=== PATIENT | female | born 1960 | race Caucasian/White ===

== ENCOUNTER 2016-12-19 16:57 | Inpatient (IN) | payer OTHER ==
[~2016-12-19] VITALS: Ht 167.6 cm; Wt 128.3 kg
[~2016-12-19 16:57] MED LIST: GLC/500 PO
[2016-12-19] MEDS ORDERED: ONDANSETRON 8 MG/54 ML D5W IV STA (17:20)
[2016-12-19] MEDS ORDERED: SODIUM CHLORIDE 0.9% 1000ML 1,000 ML IV STA ×2 (17:20→20:36)
[2016-12-19] MEDS ORDERED: RANITIDINE HCL 50 MG/100 ML D5W IV STA (17:21)
[2016-12-19] MEDS ORDERED: MoRPHine SULFATE 4 MG/ML 1 ML CARP\\VIAL IV PRN (17:30)
[2016-12-19 18:07] LABS: BUN/CREATININE RATIO 9.5 (10-20); CALCIUM 9.6 mg/dl (8.5-10.1); CREATININE 1.3 mg/dl (0.60-1.20); POTASSIUM 3.8 mmol/L (3.5-5.1)
[2016-12-19 18:12] LABS: HEMATOCRIT 39.3 % (37-47); MEAN CELL VOLUME 89.5 fL (80-100); MEAN CORPUSCULAR HEMOGLOBIN 30.8 pg (25-34); MEAN CORPUSCULAR HGB CONC 34.4 g/dl (32-36); MEAN PLATELET VOLUME 8.6 fL (7.4-10.4); PLATELET COUNT 81 K/uL (130-400); RED BLOOD COUNT 4.39 M/uL (4.2-5.4); WHITE BLOOD COUNT 10.26 K/uL (4.8-10.8)
[2016-12-19 18:14] LABS: BASO % 0.2 %; BASO ABS # 0.02 K/uL (0-0.2); COMPLETE YES; EOS % 0.1 %; IG% 0.3 %; LYMPH ABS # 0.72 K/uL (1.2-3.4); MONO % 5.2 %; NEUT % 87.2 %; PLT ESTIMATE DECREASED
--- NOTE | 2016-12-19 18:50 | DIAGNOSTIC IMAGING REPORT ---
ABD/PELVIS NO IV OR ORAL CONT CLINICAL HISTORY: 56 years-old Female presenting with diffuse abd pain, vomiting. TECHNIQUE: Multidetector CT of the abdomen and pelvis was performed without the use of intravenous contrast. IV contrast: None. A dose lowering technique was used consistent with the principles of ALARA (as low as reasonably achievable). COMPARISON: None. CT DOSE (mGy.cm): The estimated cumulative dose is 1690.04 mGy.cm. FINDINGS: Perfect Binder Feeder Offbearer topogram: Cholecystectomy clips. Lung bases: Mosaic attenuation at the lung bases could suggest small airways disease. Normal heart size. No pericardial or pleural effusion. Liver: Normal morphology. Density consistent with hepatic steatosis. Biliary: No gross biliary ductal dilatation allowing for noncontrast technique. Gallbladder surgically absent. Pancreas: Moderate parenchymal atrophy. Spleen: Enlarged measuring over 19 cm in maximal sagittal dimension. Adrenal glands: Normal noncontrast appearance. Kidneys and ureters: Normal. No hydronephrosis. Bladder: Normal. Pelvic organs: Uterus and ovaries normal. Bowel: Normal. No bowel obstruction. Peritoneal cavity: No free fluid or intraperitoneal gas. Vasculature: Atherosclerosis of the normal caliber abdominal aorta. IVC patent. Lymph nodes: No gross lymphadenopathy allowing for noncontrast technique. Abdominal wall: Normal. Musculoskeletal: Degenerative changes of the spine. IMPRESSION: 1. Within limitations of noncontrast technique, no acute intra-abdominal pathology. 2. Moderately enlarged spleen measuring over 19 cm in maximal sagittal dimension. This could be reactive in the presence of a recent or ongoing viral infection, secondary to sarcoidosis, or a lymphoproliferative disorder among other etiologies. 3. Mosaic attenuation at the lung bases suggest small airways disease. Electronically signed by: Sam Mueller M.D. 12/19/2016 6:49 PM Dictated Date/Time: 12/19/2016 6:44 PM
[2016-12-19] MEDS ORDERED: ACETAMINOPHEN 500 MG TAB PO STA (19:15)
[2016-12-19 19:29] LABS: URINE APPEARANCE CLEAR (CLEAR); URINE BILIRUBIN NEG (NEG); URINE COLOR YELLOW; URINE EPITHELIAL CELL AUTO >30 /lpf (0-5); URINE NITRITE NEG (NEG); URINE PH 6.5 (4.5-7.5); URINE SPECIFIC GRAVITY 1.012 (1.000-1.030); UROBILINOGEN NEG (NEG); ZZUR CULT IF INDIC CLEAN CATCH YES
[2016-12-19 19:31] LABS: MANUAL MICROSCOPIC REQUIRED? NO; REVIEW REQ? NO
[2016-12-19] MEDS ORDERED: CEFTRIAXONE SOD INJ 1 GM ADDVIAL IV STA (20:38)
--- NOTE | 2016-12-19 21:10 | DIAGNOSTIC IMAGING REPORT ---
HEAD WITHOUT CONTRAST (CT) CLINICAL HISTORY: 56 years-old Female presenting with headache. TECHNIQUE: Multidetector CT imaging of the head was performed without the use of intravenous contrast. IV contrast: None. A dose lowering technique was used consistent with the principles of ALARA (as low as reasonably achievable). COMPARISON: None. CT DOSE (mGy.cm): The estimated cumulative dose is 537.48 mGy.cm. FINDINGS: Grade Teacher topogram: Unremarkable. Ventricles and sulci normal in size. Brain parenchyma normal in appearance with preserved ricci-white differentiation. Prominent pineal calcification. No mass effect or midline shift. No hemorrhage or acute territorial infarct. No extra-axial fluid collection. Paranasal sinuses and mastoid air cells clear. Calvarium intact. IMPRESSION: 1. No acute intracranial pathology. Electronically signed by: Sam Mueller M.D. 12/19/2016 9:08 PM Dictated Date/Time: 12/19/2016 9:06 PM
--- NOTE | 2016-12-19 21:28 | DIAGNOSTIC IMAGING REPORT ---
CHEST ONE VIEW PORTABLE CLINICAL HISTORY: 56 years-old Female presenting with fever. TECHNIQUE: Portable upright AP view of the chest was obtained. COMPARISON: 11/16/2013. FINDINGS: Cardiomediastinal silhouette normal. Lungs and pleural spaces clear. Degenerative changes of the thoracic spine. Upper abdomen normal. IMPRESSION: 1. No acute cardiopulmonary disease. Electronically signed by: Sam Mueller M.D. 12/19/2016 9:26 PM Dictated Date/Time: 12/19/2016 9:26 PM
[2016-12-19] MEDS ORDERED: HYDROmorphone INJ 0.5 MG/0.5 ML SYR IV ONE (22:44)
[2016-12-19] MEDS ORDERED: ONDANSETRON INJ 2 MG/ML 2 ML VIAL IV PRN (22:45)
[2016-12-19] MEDS ORDERED: PROMETHAZINE HCL INJ 12.5 MG in SODIUM CHLORIDE 0.9% 50ML 50 ML IV PRN (22:45)
[2016-12-19] MEDS ORDERED: HYDROmorphone INJ 0.5 MG/0.5 ML SYR IV PRN (22:45)
[2016-12-19] MEDS ORDERED: INSULIN ASPART 100 UNITS/ML 3 ML PEN SC ONE (22:50)
[2016-12-19] MEDS ORDERED: LORAZEPAM 2 MG/ML 1 ML VIAL IV PRN (23:00)
[2016-12-19] MEDS ORDERED: SODIUM CHLORIDE 0.9% 1000ML 1,000 ML IV ONE (23:00)
[2016-12-19] MEDS ORDERED: GLUCAGON FOR INJ 1 MG VIAL SQ PRN (23:00)
[2016-12-19] MEDS ORDERED: GLUCOSE 10 TABS/TUBE PO PRN (23:00)
[2016-12-19] MEDS ORDERED: DEXTROSE 50% 50 ML SYR IV PRN (23:00)
[2016-12-19] MEDS ORDERED: ACETAMINOPHEN 325 MG TAB PO PRN (23:00)
[2016-12-19] MEDS ORDERED: GLUCOSE 40% GEL 15 GM TUBE PO PRN (23:00)
[2016-12-19 23:09] LABS: MAGNESIUM 1.5 mg/dl (1.8-2.4); THYROID STIMULATING HORMONE 1.27 uIu/ml (0.300-4.500)
[2016-12-19] MEDS ORDERED: NSS + 20MEQ KCL 1000ML 1,000 ML IV ONE (23:30)
[2016-12-20] VITALS: BP 120/73; PULSE 83; TEMP 36.8; O2SAT 95
[2016-12-20] MEDS: TRAMADOL HCL 50 MG TAB PO PRN ×3 (00:01→16:03)
[2016-12-20 00:11] LABS: INR 1.2 (0.9-1.1); PARTIAL THROMBOPLASTIN RATIO 1.1; PROTHROMBIN TIME (PATIENT) 12.4 SECONDS (9.0-12.0)
[2016-12-20 00:18] VITALS: O2SAT 96; Ht 167.6 cm; Wt 128.3 kg
--- NOTE | 2016-12-20 02:06 | EMERGENCY ROOM VISIT NOTE ---
History Report prepared by Butch: Abbi Jama Under the Supervision of: Dr. Chad Braswell M.D. First contact with patient: 17:11 Chief Complaint: GI ASSESSMENT Stated Complaint: DIZZY,SHARP PAINS IN HEAD & ABD,GRINDING FEELING History of Present Illness The patient is a 56 year old female who presents to the Emergency Room for a GI assessment. The patient states that last night she ate at [employer] in [place]. She states that shortly after she started to experience sharp abdominal pains that she describes as "a knife being drug through her abdomen." She reports that soon after she started experiencing a headache that she states is throbbing. She currently rates her pain as a 9/10 in severity. The patient complains of vomiting, diarrhea, chills, hot flashes, and melena. She notes that she has had diarrhea 10-12 times and that the vomiting started before the diarrhea. Pt denies LOC, fevers, diaphoresis, visual changes, neck pain, chest pain, breathing difficulties, back pain, hematochezia, urinary symptoms, numbness, weakness, lymphadenopathy, rash, or other complaints. She notes that she has not recently been on antibiotics. Source of History: patient Onset: last night Position: other (global) Symptom Intensity: 910 Quality: other (global) Timing: other (episode) Associated Symptoms: + chills, + headache, + nausea, + vomiting, + abdominal pain, + melena Note: The patient complains of hot flashes. Review of Systems See HPI for pertinent positives and negatives. A total of ten systems were reviewed and were otherwise negative. Past Medical & Surgical Medical Problems: (1) Diabetes (2) Sepsis Family History No pertinent family history Social History Smoking Status: Never Smoker Marital Status: Housing Status: lives with significant other Occupation Status: employed Current/Historical Medications Scheduled Metformin Hcl (Glucophage), 1,000 MG PO BID Allergies Coded Allergies: Sulfa Drugs (Verified Allergy, Unknown, 12/19/16) Physical Exam Vital Signs Date Time Temp Pulse Resp B/P (MAP) Pulse Ox O2 Delivery O2 Flow Rate FiO2 12/19/16 21:50 92 12/19/16 21:38 91 16 101/57 94 Room Air 12/19/16 20:30 96 16 89/40 91 Room Air 12/19/16 20:15 99 16 105/54 87 Room Air 12/19/16 19:45 101 16 100/58 92 Room Air 12/19/16 19:21 98 16 128/48 98 Room Air 12/19/16 17:58 99 12/19/16 17:03 37.7 102 18 143/81 98 Room Air Physical Exam GENERAL: Awake, alert, non ill appearing, uncomfortable appearing HEAD: Normocephalic, atraumatic. No edema. EYES: Normal conjunctiva. Sclera non-icteric. OROPHARYNX: Lips and tongue unremarkable. No erythema or exudate. Dry mucus membranes. NECK: Supple. No nuchal rigidity. FROM. No adenopathy. RESPIRATORY: CTA bilaterally. No wheezes rales or rhonchi. CARDIAC: Borderline tachycardic rate, normal rhythm. ABDOMEN: Soft, non distended. Diffuse tenderness to palpation. No rebound or guarding. MUSCULOSKELETAL: Atraumatic. No edema. Right leg is larger than the left thought the patient states that this is chronic. NEURO: Normal sensorium. SKIN: No rash or jaundice noted Medical Decision & Procedures ER Provider Diagnostic Interpretation: Radiology results as stated below per my review and radiologist interpretation: ABD/PELVIS NO IV OR ORAL CONT CLINICAL HISTORY: 56 years-old Female presenting with diffuse abd pain, vomiting. TECHNIQUE: Multidetector CT of the abdomen and pelvis was performed without the use of intravenous contrast. IV contrast: None. A dose lowering technique was used consistent with the principles of ALARA (as low as reasonably achievable). COMPARISON: None. CT DOSE (mGy.cm): The estimated cumulative dose is 1690.04 mGy.cm. FINDINGS: Business Unit Manager topogram: Cholecystectomy clips. Lung bases: Mosaic attenuation at the lung bases could suggest small airways disease. Normal heart size. No pericardial or pleural effusion. Liver: Normal morphology. Density consistent with hepatic steatosis. Biliary: No gross biliary ductal dilatation allowing for noncontrast technique. Gallbladder surgically absent. Pancreas: Moderate parenchymal atrophy. Spleen: Enlarged measuring over 19 cm in maximal sagittal dimension. Adrenal glands: Normal noncontrast appearance. Kidneys and ureters: Normal. No hydronephrosis. Bladder: Normal. Pelvic organs: Uterus and ovaries normal. Bowel: Normal. No bowel obstruction. Peritoneal cavity: No free fluid or intraperitoneal gas. Vasculature: Atherosclerosis of the normal caliber abdominal aorta. IVC patent. Lymph nodes: No gross lymphadenopathy allowing for noncontrast technique. Abdominal wall: Normal. Musculoskeletal: Degenerative changes of the spine. IMPRESSION: 1. Within limitations of noncontrast technique, no acute intra-abdominal pathology. 2. Moderately enlarged spleen measuring over 19 cm in maximal sagittal dimension. This could be reactive in the presence of a recent or ongoing viral infection, secondary to sarcoidosis, or a lymphoproliferative disorder among other etiologies. 3. Mosaic attenuation at the lung bases suggest small airways disease. Electronically signed by: Sam Mueller M.D. 12/19/2016 6:49 PM Dictated Date/Time: 12/19/2016 6:44 PM CHEST ONE VIEW PORTABLE CLINICAL HISTORY: 56 years-old Female presenting with fever. TECHNIQUE: Portable upright AP view of the chest was obtained. COMPARISON: 11/16/2013. FINDINGS: Cardiomediastinal silhouette normal. Lungs and pleural spaces clear. Degenerative changes of the thoracic spine. Upper abdomen normal. IMPRESSION: 1. No acute cardiopulmonary disease. Electronically signed by: Sam Mueller M.D. 12/19/2016 9:26 PM Dictated Date/Time: 12/19/2016 9:26 PM HEAD WITHOUT CONTRAST (CT) CLINICAL HISTORY: 56 years-old Female presenting with headache. TECHNIQUE: Multidetector CT imaging of the head was performed without the use of intravenous contrast. IV contrast: None. A dose lowering technique was used consistent with the principles of ALARA (as low as reasonably achievable). COMPARISON: None. CT DOSE (mGy.cm): The estimated cumulative dose is 537.48 mGy.cm. FINDINGS: Business Unit Manager topogram: Unremarkable. Ventricles and sulci normal in size. Brain parenchyma normal in appearance with preserved ricci-white differentiation. Prominent pineal calcification. No mass effect or midline shift. No hemorrhage or acute territorial infarct. No extra-axial fluid collection. Paranasal sinuses and mastoid air cells clear. Calvarium intact. IMPRESSION: 1. No acute intracranial pathology. Electronically signed by: Sam Mueller M.D. 12/19/2016 9:08 PM Dictated Date/Time: 12/19/2016 9:06 PM Laboratory Results 12/19/16 17:32 Red Blood Count 4.39, Mean Corpuscular Volume 89.5, Mean Corpuscular Hemoglobin 30.8, Mean Corpuscular Hemoglobin Concent 34.4, Mean Platelet Volume 8.6, Neutrophils (%) (Auto) 87.2, Lymphocytes (%) (Auto) 7.0, Monocytes (%) (Auto) 5.2, Eosinophils (%) (Auto) 0.1, Basophils (%) (Auto) 0.2, Neutrophils # (Auto) 8.95, Lymphocytes # (Auto) 0.72, Monocytes # (Auto) 0.53, Eosinophils # (Auto) 0.01, Basophils # (Auto) 0.02 12/19/16 17:32 Test 12/19/16 17:32 12/19/16 19:14 White Blood Count 10.26 K/uL (4.8-10.8) Red Blood Count 4.39 M/uL (4.2-5.4) Hemoglobin 13.5 g/dL (12.0-16.0) Hematocrit 39.3 % (37-47) Mean Corpuscular Volume 89.5 fL (80-100) Mean Corpuscular Hemoglobin 30.8 pg (25-34) Mean Corpuscular Hemoglobin Concent 34.4 g/dl (32-36) Platelet Count 81 K/uL (130-400) Mean Platelet Volume 8.6 fL (7.4-10.4) Neutrophils (%) (Auto) 87.2 % Lymphocytes (%) (Auto) 7.0 % Monocytes (%) (Auto) 5.2 % Eosinophils (%) (Auto) 0.1 % Basophils (%) (Auto) 0.2 % Neutrophils # (Auto) 8.95 K/uL (1.4-6.5) Lymphocytes # (Auto) 0.72 K/uL (1.2-3.4) Monocytes # (Auto) 0.53 K/uL (0.11-0.59) Eosinophils # (Auto) 0.01 K/uL (0-0.5) Basophils # (Auto) 0.02 K/uL (0-0.2) RDW Standard Deviation 46.3 fL (36.4-46.3) RDW Coefficient of Variation 14.0 % (11.5-14.5) Immature Granulocyte % (Auto) 0.3 % Immature Granulocyte # (Auto) 0.03 K/uL (0.00-0.02) Nucleated RBC Absolute Count (auto) 0.00 K/uL (0-0) Nucleated Red Blood Cells % 0.0 % Platelet Estimate DECREASED Anion Gap 8.0 mmol/L (3-11) Est Creatinine Clear Calc Drug Dose 64.7 ml/min Estimated GFR () 52.4 Estimated GFR (Non- 45.2 BUN/Creatinine Ratio 9.5 (10-20) Calcium Level 9.6 mg/dl (8.5-10.1) Magnesium Level 1.5 mg/dl (1.8-2.4) Total Bilirubin 1.9 mg/dl (0.2-1) Direct Bilirubin 0.5 mg/dl (0-0.2) Aspartate Amino Transf (AST/SGOT) 34 U/L (15-37) Alanine Aminotransferase (ALT/SGPT) 26 U/L (12-78) Alkaline Phosphatase 102 U/L (45-117) Total Protein 8.0 gm/dl (6.4-8.2) Albumin 3.2 gm/dl (3.4-5.0) Lipase 161 U/L (73-393) Thyroid Stimulating Hormone (TSH) 1.270 uIu/ml (0.300-4.500) Urine Color YELLOW Urine Appearance CLEAR (CLEAR) Urine pH 6.5 (4.5-7.5) Urine Specific [place] 1.012 (1.000-1.030) Urine Protein NEG (NEG) Urine Glucose (UA) NEG (NEG) Urine Ketones NEG (NEG) Urine Occult Blood NEG (NEG) Urine Nitrite NEG (NEG) Urine Bilirubin NEG (NEG) Urine Urobilinogen NEG (NEG) Urine Leukocyte Esterase LARGE (NEG) Urine WBC (Auto) 10-30 /hpf (0-5) Urine RBC (Auto) 0-4 /hpf (0-4) Urine Hyaline Casts (Auto) 1-5 /lpf (0-5) Urine Epithelial Cells (Auto) >30 /lpf (0-5) Urine Bacteria (Auto) 2+ (NEG) Laboratory results reviewed by me Medications Administered Medications (Trade) Dose Ordered Sig/Manuela Route Start Time Stop Time Status Last Admin Dose Admin Sodium Chloride 1,000 ml @ 999 mls/hr Q1H1M STAT IV 12/19/16 17:20 12/19/16 18:20 DC 12/19/16 17:42 999 MLS/HR Ondansetron HCl (Zofran 8mg Iv) 8 mg NOW STAT IV 9/17/17 17:20 12/19/16 17:23 DC 12/19/16 17:43 8 MG Morphine Sulfate (MoRPHine SULFATE INJ) 4 mg Q1H PRN IV 12/19/16 17:30 12/19/16 22:45 DC 12/19/16 17:43 4 MG Ranitidine HCl (zANTac IV) 50 mg NOW STAT IV 12/19/16 17:21 12/19/16 17:23 DC 12/19/16 17:43 50 MG Acetaminophen (Tylenol Tab) 1,000 mg NOW STAT PO 12/19/16 19:15 12/19/16 19:16 DC 12/19/16 19:15 1,000 MG Sodium Chloride 1,000 ml @ 999 mls/hr Q1H1M STAT IV 12/19/16 20:36 12/19/16 21:36 DC 12/19/16 20:36 999 MLS/HR Ceftriaxone Sodium (Rocephin Inj) 1 gm NOW STAT IV 12/19/16 20:38 12/19/16 20:40 DC 12/19/16 20:38 1 GM ED Course 171: The patient was evaluated in room A3. A complete history and physical exam was performed. 1720: Ordered Ondansetron HCl 8 mg IV, NSS 1000 ml @ 999 mls/hr IV. 1720: Ordered Ranitidine HCl 50 mg IV. 1730: Ordered Morphine Sulfate 4 mg PRN IV pain. 1913: The patient has spike a fever and will be given Tylenol. 1914: Ordered Tylenol Tab 1000 mg PO. 2035: Ordered NSS 1000 ml @ 999 mls/hr IV. 2033: I reevaluated the patient and there is no change in her symptoms. Her blood pressure is mildly low and her O2 borderline. The patient will be sent to CT. 2037: Ordered Rocephin Inj 1 gm IV. 2040: Discussed the patient's case with Dr. Avila. The patient will be evaluated for further treatment and disposition. Medical Decision Prior records/ancillary studies reviewed. Triage Nursing notes reviewed and agree them. Additional history obtained from the family. The patient's history was concerning for nausea, vomiting, diarrhea, and abdominal pain. Differential diagnosis: Etiologies such as gastroenteritis, dehydration, food borne illness, infections , appendicitis, diverticulitis, inflammatory bowel disease, GI bleed, biliary pathology, as well as others were entertained. Physical examination findings: As above. ER treatment provided: IV hydration 1 L NSS. Morphine Zofran Tylenol On reassessment the patient felt somewhat better. Nausea was improved. She still had a mild headache. Additional normal saline hydration IV Rocephin Diagnostics interpretation by me: The labs revealed an unremarkable CBC and chemistry panel except for thrombocytopenia. Urinalysis concerning for infection. Imaging studies: CT scans as above. The patient presented with vomiting and diarrhea coupled with abdominal pain. She has significant splenomegaly and thrombocytopenia on CBC. She has also had a headache but no nuchal rigidity. Her CT of her head did not reveal any acute findings. The patient's urinalysis was somewhat concerning. She had spiked a fever here in the emergency department. Her blood pressure was mildly low. Given the constellation of symptoms further evaluation and management was felt to be appropriate. Consultation: A consultation was placed with the hospitalist. The case was discussed and diagnostics were reviewed. The patient was evaluated in the ER for further treatment. Blood Pressure Screening Patient's blood pressure: Low blood pressure Blood pressure disposition: Did not require urgent referral Consults Time Called: 2038 Consulting Physician: Dr. Avila Returned Call: 2040 Discussed the patient's case with Dr. Avila. The patient will be evaluated for further treatment and disposition. Impression Primary Impression: Nausea, vomiting and diarrhea Additional Impressions: Thrombosis Cytopenia Splenomegaly Headache Scribe Attestation The scribe's documentation has been prepared under my direction and personally reviewed by me in its entirety. I confirm that the note above accurately reflects all work, treatment, procedures, and medical decision making performed by me. Departure Information Dispostion Being Evaluated By Hospitalist Referrals No Doctor, Assigned (PCP) Patient Instructions [facility] Problem Qualifiers
--- NOTE | 2016-12-20 04:23 | HISTORY & PHYSICAL EXAMINATION ---
DATE OF ADMISSION: 12/19/2016 PRIMARY CARE DOCTOR: Dr. Rollins. CHIEF COMPLAINT: Abdominal pain. HISTORY OF PRESENT ILLNESS: History obtained from patient and records. Medical history significant for JUAN, lymphedema, DM 2 on oral meds, hyperlipidemia, thrombocytopenia (from May 2015 blood work, patient unaware of the findings) Yesterday, the patient had a sandwich from [facility]. Shortly after she felt sick, nauseous; vomiting, loose stools, achy abdominal pain noted. Denies dysuria. Stools nonbloody. achy posterior headache sx w/ some dizziness. No recent antibiotics. No known sick contacts. Patient brought to the Emergency Room. MEDICAL HISTORY: As above. SURGERIES: She has had gynecologic procedures, cholecystectomy. HOME MEDICATIONS: Include metformin. ALLERGIES: SULFA. FAMILY HISTORY: Hypertension, cirrhosis secondary to fatty liver disease. PERSONAL SOCIAL HISTORY: Nonsmoker, no chronic intake of alcoholic beverages. Disabled. REVIEW OF SYSTEMS: As per HPI, all other ROS negative. PHYSICAL EXAMINATION: VITAL SIGNS: Blood pressure was noted to be 140/81, pulse rate 102 later 90, RR 18, temperature 37.7, sats 94% on room air. GENERAL: Noted to be obese, uncomfortable, no respiratory distress. SKIN: Normal color. HEENT: [place] palpebral conjunctivae. Dry mucosa. NECK: Short neck. LUNGS: Decreased breath sounds. HEART: RRR ABDOMEN: Some distention, no overt tenderness. EXTREMITIES: Bilateral LE edema, no tenderness NEUROLOGIC: No gross focality. LABS: Hemoglobin was noted to be 13.5, hematocrit 39.7, white cell count 12 platelets 81. Sodium 140 potassium 3.8, chloride 103, CO2 28, BUN 12, creatinine 1.3, glucose 161, procalcitonin was noted to be normal. Hemoglobin A1c from October 2016 was 7.1. UA WBC esterase, epithelial cells. IMAGING DATA: CT abdomen and pelvis. hepatic steatosis. no acute intra-abdominal pathology, moderately enlarged spleen, (viral infection versus lymphoproliferative disorder) CT head, no acute pathology. ASSESSMENT: 1. Sepsis possibly from viral gastroenteritis, food-borne illness. 2. Acute renal failure secondary to above. 3. Asymptomatic pyuria, contaminated specimen 4. Chronic thrombocytopenia (noted on 05/2015 outpatient blood work), splenomegaly on CAT scan. 5. Fatty liver on CT 6. Headache secondary to illness. 7. DM2, on oral medications, well controlled as of recent outpx HgA1c. PLAN: GMF CS, check lactic acid Supportive management for viral gastroenteritis. analgesics. Antiemetics Monitor creatinine response to IV fluids Hold off on antibiotics for now for asymptomatic pyuria. Inpatient Hematology opinion as per patient/family request RE thrombocytopenia, splenomegaly. MRI of the brain if patient still complaining of headache in the morning. ISS BG goal 140-180 DVT prophylaxis SCDs RE thrombocytopenia Full code. MTDD
[2016-12-20 07:49] LABS: HEMATOCRIT 34.3 % (37-47); MEAN CELL VOLUME 92.2 fL (80-100); MEAN CORPUSCULAR HEMOGLOBIN 30.6 pg (25-34); MEAN CORPUSCULAR HGB CONC 33.2 g/dl (32-36); RED BLOOD COUNT 3.72 M/uL (4.2-5.4); WHITE BLOOD COUNT 5.87 K/uL (4.8-10.8)
[2016-12-20] MEDS: INSULIN ASPART 100 UNITS/ML 3 ML PEN SC SCH ×4 (07:52→21:13)
[2016-12-20] MEDS: ONDANSETRON INJ 2 MG/ML 2 ML VIAL IV. SCH ×2 (07:53→21:10)
[2016-12-20] MEDS ORDERED: PNEUMOCOCCAL POLYSACCHARIDES 25 MCG/0.5 ML VIAL/SYR IM. ONE (08:00)
[2016-12-20] MEDS ORDERED: PNEUMOCOCCAL ADMINISTRATION CHARGE ONE (08:00)
[2016-12-20 08:02] LABS: MEAN PLATELET VOLUME 9.2 fL (7.4-10.4); PLATELET COUNT 62 K/uL (130-400)
[2016-12-20 08:15] LABS: BUN/CREATININE RATIO 10.7 (10-20); CALCIUM 8.8 mg/dl (8.5-10.1); CREATININE 1.1 mg/dl (0.60-1.20); POTASSIUM 3.8 mmol/L (3.5-5.1)
[2016-12-20 08:17] LABS: BASO % 0.2 %; BASO ABS # 0.01 K/uL (0-0.2); COMPLETE YES; EOS % 0.7 %; IG% 0.2 %; LYMPH % 13.6 %; MONO % 6.6 %; NEUT % 78.7 %
[2016-12-20 09:52] VITALS: BP 125/76; PULSE 81; TEMP 36.8; O2SAT 97
--- NOTE | 2016-12-20 13:49 | Progress Note ---
Internal Med Progress Note Date of Service: Dec 20, 2016. Provider Documentation: SUBJECTIVE: Seen and examined at bedside Nausea, vomiting, diarrhea resolved States having generalized abdominal pain predominantly on left Also reports occipital headache Denies change in vision No focal deficits, neck stiff ness on exam Denies CP, SOB Family at bedside OBJECTIVE: Vital Signs-as noted below Physical Exam: Vitals signs as noted above General Appearance:Obese, no apparent distress Head: normocephalic, Atraumatic Eyes: normal inspection, EOMI, PERRLA Neck: supple, Trachea midline Respiratory/Chest: Normal breath sounds, CTA Cardiovascular: S1, S2, No murmur Abdomen/GI:Soft, Non tender, Bowel sounds present Extremities/Musculoskelatal:normal inspection, B/L Chronic lymphedema Neurologic/Psych:AAOX3, grossly no focal neurological deficits, No neck stiffness Skin: normal color, warm Lab data as noted below. ASSESSMENT & PLAN: SIRS ? gastroenteritis Nausea, vomiting, diarrhea resolved Normal lactate levels Afebrile, No leucocytosis S/P IV fluids CT ABD: hepatic Steatosis, splenomegaly SATHYA: secondary to above. Resolved Monitor renal function Abnormal UA: likely contaminant Urine cultures pending Denies Urinary symptoms Splenomegaly Chronic thrombocytopenia (noted on 05/2015 outpatient blood work) No active bleeding issues Heme Onch consulted Monitor platelets Peripheral smear pending Headache: Reports H/O headache but states it is different "Pressure like" CT Head: no acute pathology Persistent intermittently, occipital region currently No neck stiffness, focal deficits or change in vision Check MRI head DM II: on oral medications at home well controlled as of recent outpx HgA1c. ISS, monitor Chronic Lymphedema: States RLE is more swollen check Doppler to r/o DVT DVT px SCDs RE thrombocytopenia Code Status: Full code. Vital Signs: Date Time Temp Pulse Resp B/P (MAP) Pulse Ox O2 Delivery O2 Flow Rate FiO2 12/20/16 09:52 36.8 81 18 125/76 (92) 97 Room Air 12/20/16 08:30 Room Air 12/20/16 00:18 96 Room Air 12/20/16 00:00 36.8 83 20 120/73 (89) 95 Room Air 12/19/16 22:45 87 16 112/78 96 Room Air 12/19/16 21:50 92 12/19/16 21:38 91 16 101/57 94 Room Air 12/19/16 20:30 96 16 89/40 91 Room Air 12/19/16 20:15 99 16 105/54 87 Room Air 12/19/16 19:45 101 16 100/58 92 Room Air 12/19/16 19:21 98 16 128/48 98 Room Air 12/19/16 17:58 99 12/19/16 17:03 37.7 102 18 143/81 98 Room Air Lab Results: Results Past 24 Hours Test 12/19/16 17:32 12/19/16 19:14 12/19/16 23:28 12/20/16 00:00 Range/Units White Blood Count 10.26 4.8-10.8 K/uL Red Blood Count 4.39 4.2-5.4 M/uL Hemoglobin 13.5 12.0-16.0 g/dL Hematocrit 39.3 37-47 % Mean Corpuscular Volume 89.5 80-100 fL Mean Corpuscular Hemoglobin 30.8 25-34 pg Mean Corpuscular Hemoglobin Concent 34.4 32-36 g/dl Platelet Count 81 130-400 K/uL Mean Platelet Volume 8.6 7.4-10.4 fL Neutrophils (%) (Auto) 87.2 % Lymphocytes (%) (Auto) 7.0 % Monocytes (%) (Auto) 5.2 % Eosinophils (%) (Auto) 0.1 % Basophils (%) (Auto) 0.2 % Neutrophils # (Auto) 8.95 1.4-6.5 K/uL Lymphocytes # (Auto) 0.72 1.2-3.4 K/uL Monocytes # (Auto) 0.53 0.11-0.59 K/uL Eosinophils # (Auto) 0.01 0-0.5 K/uL Basophils # (Auto) 0.02 0-0.2 K/uL RDW Standard Deviation 46.3 36.4-46.3 fL RDW Coefficient of Variation 14.0 11.5-14.5 % Immature Granulocyte % (Auto) 0.3 % Immature Granulocyte # (Auto) 0.03 0.00-0.02 K/uL Nucleated RBC Absolute Count (auto) 0.00 0-0 K/uL Nucleated Red Blood Cells % 0.0 % Platelet Estimate DECREASED Sodium Level 139 136-145 mmol/L Potassium Level 3.8 3.5-5.1 mmol/L Chloride Level 103 98-107 mmol/L Carbon Dioxide Level 28 21-32 mmol/L Anion Gap 8.0 3-11 mmol/L Blood Urea Nitrogen 12 7-18 mg/dl Creatinine 1.30 0.60-1.20 mg/dl Est Creatinine Clear Calc Drug Dose 64.7 ml/min Estimated GFR () 52.4 Estimated GFR (Non- 45.2 BUN/Creatinine Ratio 9.5 10-20 Random Glucose 161 70-99 mg/dl Calcium Level 9.6 8.5-10.1 mg/dl Magnesium Level 1.5 1.8-2.4 mg/dl Total Bilirubin 1.9 0.2-1 mg/dl Direct Bilirubin 0.5 0-0.2 mg/dl Aspartate Amino Transf (AST/SGOT) 34 15-37 U/L Alanine Aminotransferase (ALT/SGPT) 26 12-78 U/L Alkaline Phosphatase 102 45-117 U/L Total Protein 8.0 6.4-8.2 gm/dl Albumin 3.2 3.4-5.0 gm/dl Lipase 161 73-393 U/L Thyroid Stimulating Hormone (TSH) 1.270 0.300-4.500 uIu/ml Urine Color YELLOW Urine Appearance CLEAR CLEAR Urine pH 6.5 4.5-7.5 Urine Specific [place] 1.012 1.000-1.030 Urine Protein NEG NEG Urine Glucose (UA) NEG NEG Urine Ketones NEG NEG Urine Occult Blood NEG NEG Urine Nitrite NEG NEG Urine Bilirubin NEG NEG Urine Urobilinogen NEG NEG Urine Leukocyte Esterase LARGE NEG Urine WBC (Auto) 10-30 0-5 /hpf Urine RBC (Auto) 0-4 0-4 /hpf Urine Hyaline Casts (Auto) 1-5 0-5 /lpf Urine Epithelial Cells (Auto) >30 0-5 /lpf Urine Bacteria (Auto) 2+ NEG Prothrombin Time 12.4 9.0-12.0 SECONDS Prothromb Time International Ratio 1.2 0.9-1.1 Activated Partial Thromboplast Time 29.4 21.0-31.0 SECONDS Partial Thromboplastin Ratio 1.1 Lactic Acid Level 1.5 0.4-2.0 mmol/L Lactate Dehydrogenase 181 84-246 U/L Procalcitonin 0.44 0-0.5 ng/ml Bedside Glucose 157 70-90 mg/dl Test 12/20/16 07:11 12/20/16 07:41 12/20/16 11:28 Range/Units White Blood Count 5.87 4.8-10.8 K/uL Red Blood Count 3.72 4.2-5.4 M/uL Hemoglobin 11.4 12.0-16.0 g/dL Hematocrit 34.3 37-47 % Mean Corpuscular Volume 92.2 80-100 fL Mean Corpuscular Hemoglobin 30.6 25-34 pg Mean Corpuscular Hemoglobin Concent 33.2 32-36 g/dl Platelet Count 62 130-400 K/uL Mean Platelet Volume 9.2 7.4-10.4 fL Neutrophils (%) (Auto) 78.7 % Lymphocytes (%) (Auto) 13.6 % Monocytes (%) (Auto) 6.6 % Eosinophils (%) (Auto) 0.7 % Basophils (%) (Auto) 0.2 % Neutrophils # (Auto) 4.62 1.4-6.5 K/uL Lymphocytes # (Auto) 0.80 1.2-3.4 K/uL Monocytes # (Auto) 0.39 0.11-0.59 K/uL Eosinophils # (Auto) 0.04 0-0.5 K/uL Basophils # (Auto) 0.01 0-0.2 K/uL RDW Standard Deviation 48.8 36.4-46.3 fL RDW Coefficient of Variation 14.5 11.5-14.5 % Immature Granulocyte % (Auto) 0.2 % Immature Granulocyte # (Auto) 0.01 0.00-0.02 K/uL Sodium Level 140 136-145 mmol/L Potassium Level 3.8 3.5-5.1 mmol/L Chloride Level 105 98-107 mmol/L Carbon Dioxide Level 29 21-32 mmol/L Anion Gap 6.0 3-11 mmol/L Blood Urea Nitrogen 12 7-18 mg/dl Creatinine 1.10 0.60-1.20 mg/dl Est Creatinine Clear Calc Drug Dose 76.5 ml/min Estimated GFR () 64.1 Estimated GFR (Non- 55.3 BUN/Creatinine Ratio 10.7 10-20 Random Glucose 152 70-99 mg/dl Calcium Level 8.8 8.5-10.1 mg/dl Bedside Glucose 160 178 70-90 mg/dl Microbiology Results 12/19/16 Blood Culture, Received Pending 12/19/16 Blood Culture, Received Pending 12/19/16 Urine Culture - Preliminary, Resulted PIN-POINT GROWTH PRESENT, REINCUBATING.
[2016-12-20 15:32] VITALS: BP 121/70; PULSE 73; TEMP 37; O2SAT 94
[2016-12-20 16:00] VITALS: O2SAT 94
--- NOTE | 2016-12-20 18:13 | Medical Consult ---
Consultation Date of Consultation: Dec 20, 2016. Attending Physician: Johan Woodard MD History of Present Illness Hematology consult: Evaluation and management of thrombocytopenia. Date of consultation: 12/20/[address] Avila. HPI: 56-year-old female, who is admitted at [facility] on for increasing abdominal pain, occipital headache, nausea, vomiting, diarrhea, no blood in the stool, some dizziness present. Earlier blood workup done 2013 and before that showed normal platelet count. -platelet count was around 108,000 with normal white blood cell count and platelet count in May,. - WBC 72895, H&H of 13.5/39.3, MCV 89.5, Platelet count of 81,000, (12/19/2016) Peripheral smear reviewed by the pathologist showed low platelet count, no platelet clumping, no immature WBCs, no schistocytes noted. -WBC 5800, H&H [place] 11.4/34.3, [place] [address] (12/20/2016) -BUN/Creat: 12/1.3, total bilirubin 1.9, direct bilirubin 0.5 AST 34, ALT 26 I saw her at bedside, her son was also at bedside, she still complains of some abdominal pain, occipital headache present. No nausea or vomiting, right lower extremity painful swelling involving the leg present. REVIEW OF SYSTEMS: GENERAL: No change in weight, she felt quite weak and tired, fatigue present, low-grade fever present,. SKIN: No skin rash, no bruising. HEAD: Occipital headache and some dizziness present. EYES: No recent change in the vision, no diplopia, EARS: No earache no tinnitus, NOSE: No epistaxis, No nasal discharge or stuffiness, MOUTH: No sores, no dysphagia, no hoarseness of voice, NECK: No lumps, No swelling in thyroid area. No stiffness. PULMONARY: No cough, No shortness of breath, no hemoptysis, no chest pain, No wheezing. CARDIOVASCULAR: No anginal chest pain, no PND, no orthopnea. No palpitation, she has chronic bilateral leg edema more on the right side which could be lymphedema, No syncope. GASTROINTESTINAL: Left-sided abdominal pain, nausea present, vomiting present, diarrhea present, no blood in the stool.No abdominal distention. UROLOGIC: No burning urination. No hematuria. MUSCULOSKELETAL: No joint pain, No joint swelling, no muscle weakness. HEMATOLOGIC: No anemia, no bleeding disorder, No bruising. NEUROLOGIC: No seizures, no focal weakness, no speech difficulty, No memory disturbances. No tingling or numbness of the extremities. PSYCHIATRIC: No depression. No anxiety. No psychosis. SLEEP: No sleep disorder. Past medical and surgical history: -right lower extremity lymphedema, diabetes mellitus, she says that she had repeated episodes of some cellulitis involving the right leg last episode was few years back, obstructive sleep apnea, hyperlipidemia. She had cholecystectomy in the past . - bilateral lower extremity neuropathy. Social history: Denies any history of smoking, denies any ETOH abuse. Family history: Not significant Medications: Please review her chart for detailed list of medications. Allergies: None On exam: - Alert and oriented x3, well built obese woman, not in any distress. - HEENT: no icterus, no pallor, Throat: Normal. - Neck: No palpable cervical lymphadenopathy. - Chest: clear to auscultation. - Abdomen: soft, nontender, no hepatomegaly, no splenomegaly. - No focal neuro deficit. - Extremities: no finger clubbing, right lower extremity lymphedema with some chronic changes involving the leg with some signs of erythema present, mild left leg edema present.. Lab: -LDH--> 181. (12/19/2016). Imaging: -CT scan of the abdomen pelvis done without intravenous contrast on 12/19/2016 showed splenomegaly measuring around 19 cm, no intra-abdominal lymphadenopathy noted. Hepatic steatosis noted. S/P cholecystectomy noted. -CT scan of the head done without intravenous contrast on 12/19/2016--> no acute intracranial pathology noted. ASSESSMENT AND PLAN: 56-year-old female, who had mild thrombocytopenia platelet count around 100,000 earlier in May,, she had a normal white blood cell count, normal hemoglobin level at that time, now she is admitted for some nonspecific symptoms in the form abdominal pain, headache, low-grade fever which could be some gastroenteritis or some viral illness, but found to have gradual drop in the platelet count around 60,000, splenomegaly noted in the CT scan of the abdomen, no intermittent lymphadenopathy, fatty changes noted in the liver, obesity present, also has diabetes mellitus, chronic right lower extremity lymphedema now has possible cellulitis, she is going for Doppler evaluation to rule out DVT. Splenomegaly is most likely the cause of thrombocytopenia in her case and her platelet count is likely to stay in the same range but not sure about the exact cause of splenomegaly in her case at this time, her white blood cell count is in normal range, hemoglobin is also normal range, no other intra-abdominal lymphadenopathy noted. She does not have any other palpable lymphadenopathy or B symptoms for some time. Congestive splenomegaly would be possibility. Will see how she does during this hospitalization, will follow up in the outpatient clinic and decide about further workup if indicated. Thanks for the consultation. Dr. Bon Ibrahim Hem/Onc (This note was completed using the dictation program Fluency Direct. As such, there may be misspellings, word substitutions, or other variations that should not change the essence of the clinical content of this encounter note. If there is need for further clarification, please direct questions to the provider listed above.) Past Medical/Surgical History Medical Problems: (1) Cytopenia Status: Acute (2) Headache Status: Acute (3) Nausea, vomiting and diarrhea Status: Acute (4) Splenomegaly Status: Acute (5) Thrombosis Status: Acute Family History No pertinent family history Social History Smoking Status: Never Smoker Marital Status: Housing Status: lives with significant other Occupation Status: employed Allergies Coded Allergies: Sulfa Drugs (Verified Allergy, Unknown, 12/19/16) Current Inpatient Medications Current Inpatient Medications Medications (Trade) Dose Ordered Sig/Manuela Route Start Time Stop Time Status Last Admin Dose Admin Hydromorphone HCl (Dilaudid Inj) 0.5 mg Q3H PRN IV 12/19/16 22:45 01/02/17 22:44 Tramadol HCl (Ultram Tab) not relieved by tylenol @ Q6H PRN PO 12/19/16 22:45 01/18/17 22:44 12/20/16 16:03 50 MG Promethazine HCl 12.5 mg/Sodium Chloride 50.5 ml @ 204 mls/hr Q6H PRN IV 12/19/16 22:45 01/18/17 22:44 Ondansetron HCl (Zofran Inj) 4 mg Q12 IV. 12/20/16 09:00 12/20/16 21:01 12/20/16 07:53 4 MG Ondansetron HCl (Zofran Inj) 4 mg Q6H PRN IV 12/19/16 22:45 01/18/17 22:44 Acetaminophen (Tylenol Tab) 650 mg Q4H PRN PO 12/19/16 23:00 01/18/17 22:59 12/20/16 11:26 650 MG Insulin Aspart (novoLOG ASPART) SLIDING SCALE If C... ACHS SC 12/20/16 06:30 01/19/17 06:59 Glucose (Glucose 40% Gel) 15-30 GRAMS 15 GRAMS... UD PRN PO 12/19/16 23:00 01/18/17 22:59 Glucose (Glucose Chew Tab) 4-8 Tablets 4 Tabl... UD PRN PO 12/19/16 23:00 01/18/17 22:59 Dextrose (Dextrose 50% 50ML Syringe) 25-50ML OF 50% DW IV FOR... UD PRN IV 12/19/16 23:00 01/18/17 22:59 Glucagon (Glucagon Inj) 1 mg UD PRN SQ 12/19/16 23:00 01/18/17 22:59 Lorazepam (Ativan Inj) 0.5 mg Q4H PRN IV 12/19/16 23:00 01/18/17 22:59 Physical Exam Date Time Temp Pulse Resp B/P (MAP) Pulse Ox O2 Delivery O2 Flow Rate FiO2 12/20/16 16:00 94 Room Air 12/20/16 15:32 37.0 73 20 121/70 (87) 94 Room Air 12/20/16 09:52 36.8 81 18 125/76 (92) 97 Room Air 12/20/16 08:30 Room Air 12/20/16 00:18 96 Room Air 12/20/16 00:00 36.8 83 20 120/73 (89) 95 Room Air 12/19/16 22:45 87 16 112/78 96 Room Air 12/19/16 21:50 92 12/19/16 21:38 91 16 101/57 94 Room Air 12/19/16 20:30 96 16 89/40 91 Room Air 12/19/16 20:15 99 16 105/54 87 Room Air 12/19/16 19:45 101 16 100/58 92 Room Air 12/19/16 19:21 98 16 128/48 98 Room Air Laboratory Results Last 24 Hours Test 12/19/16 19:14 12/19/16 23:28 12/20/16 00:00 12/20/16 07:11 Urine Color YELLOW Urine Appearance CLEAR Urine pH 6.5 Urine Specific [place] 1.012 Urine Protein NEG Urine Glucose (UA) NEG Urine Ketones NEG Urine Occult Blood NEG Urine Nitrite NEG Urine Bilirubin NEG Urine Urobilinogen NEG Urine Leukocyte Esterase LARGE Urine WBC (Auto) 10-30 /hpf Urine RBC (Auto) 0-4 /hpf Urine Hyaline Casts (Auto) 1-5 /lpf Urine Epithelial Cells (Auto) >30 /lpf Urine Bacteria (Auto) 2+ Prothrombin Time 12.4 SECONDS Prothromb Time International Ratio 1.2 Activated Partial Thromboplast Time 29.4 SECONDS Partial Thromboplastin Ratio 1.1 Lactic Acid Level 1.5 mmol/L Lactate Dehydrogenase 181 U/L Procalcitonin 0.44 ng/ml Bedside Glucose 157 mg/dl White Blood Count 5.87 K/uL Red Blood Count 3.72 M/uL Hemoglobin 11.4 g/dL Hematocrit 34.3 % Mean Corpuscular Volume 92.2 fL Mean Corpuscular Hemoglobin 30.6 pg Mean Corpuscular Hemoglobin Concent 33.2 g/dl Platelet Count 62 K/uL Mean Platelet Volume 9.2 fL Neutrophils (%) (Auto) 78.7 % Lymphocytes (%) (Auto) 13.6 % Monocytes (%) (Auto) 6.6 % Eosinophils (%) (Auto) 0.7 % Basophils (%) (Auto) 0.2 % Neutrophils # (Auto) 4.62 K/uL Lymphocytes # (Auto) 0.80 K/uL Monocytes # (Auto) 0.39 K/uL Eosinophils # (Auto) 0.04 K/uL Basophils # (Auto) 0.01 K/uL RDW Standard Deviation 48.8 fL RDW Coefficient of Variation 14.5 % Immature Granulocyte % (Auto) 0.2 % Immature Granulocyte # (Auto) 0.01 K/uL Sodium Level 140 mmol/L Potassium Level 3.8 mmol/L Chloride Level 105 mmol/L Carbon Dioxide Level 29 mmol/L Anion Gap 6.0 mmol/L Blood Urea Nitrogen 12 mg/dl Creatinine 1.10 mg/dl Est Creatinine Clear Calc Drug Dose 76.5 ml/min Estimated GFR () 64.1 Estimated GFR (Non- 55.3 BUN/Creatinine Ratio 10.7 Random Glucose 152 mg/dl Calcium Level 8.8 mg/dl Test 12/20/16 07:41 12/20/16 11:28 12/20/16 16:44 Bedside Glucose 160 mg/dl 178 mg/dl 157 mg/dl
[2016-12-20] MEDS ORDERED: DOXYCYCLINE IV 100 MG in DEXTROSE 5% 100ML 100 ML IV ONE (21:32)
--- NOTE | 2016-12-20 21:34 | Progress Note ---
Internal Med Progress Note Date of Service: Dec 20, 2016. Provider Documentation: Made aware by RN of right lower extremity swelling. Ultrasound negative for DVT AP Cellulitis, right lower extremity Doxycycline course Vital Signs: Date Time Temp Pulse Resp B/P (MAP) Pulse Ox O2 Delivery O2 Flow Rate FiO2 12/21/16 07:17 37.1 78 18 110/65 (80) 90 Room Air 12/21/16 00:22 36.9 76 20 129/76 (93) 96 Room Air 12/20/16 23:30 Room Air 12/20/16 16:00 94 Room Air 12/20/16 15:32 37.0 73 20 121/70 (87) 94 Room Air Lab Results: Results Past 24 Hours Test 12/20/16 11:28 12/20/16 16:44 12/20/16 20:27 12/21/16 06:21 Range/Units Bedside Glucose 178 157 198 70-90 mg/dl White Blood Count 6.12 4.8-10.8 K/uL Red Blood Count 3.73 4.2-5.4 M/uL Hemoglobin 11.5 12.0-16.0 g/dL Hematocrit 33.8 37-47 % Mean Corpuscular Volume 90.6 80-100 fL Mean Corpuscular Hemoglobin 30.8 25-34 pg Mean Corpuscular Hemoglobin Concent 34.0 32-36 g/dl Platelet Count 59 130-400 K/uL Mean Platelet Volume 8.9 7.4-10.4 fL Neutrophils (%) (Auto) 68.9 % Lymphocytes (%) (Auto) 18.6 % Monocytes (%) (Auto) 7.5 % Eosinophils (%) (Auto) 4.4 % Basophils (%) (Auto) 0.3 % Neutrophils # (Auto) 4.21 1.4-6.5 K/uL Lymphocytes # (Auto) 1.14 1.2-3.4 K/uL Monocytes # (Auto) 0.46 0.11-0.59 K/uL Eosinophils # (Auto) 0.27 0-0.5 K/uL Basophils # (Auto) 0.02 0-0.2 K/uL RDW Standard Deviation 47.3 36.4-46.3 fL RDW Coefficient of Variation 14.3 11.5-14.5 % Immature Granulocyte % (Auto) 0.3 % Immature Granulocyte # (Auto) 0.02 0.00-0.02 K/uL Sodium Level 140 136-145 mmol/L Potassium Level 3.9 3.5-5.1 mmol/L Chloride Level 105 98-107 mmol/L Carbon Dioxide Level 29 21-32 mmol/L Anion Gap 6.0 3-11 mmol/L Blood Urea Nitrogen 11 7-18 mg/dl Creatinine 1.00 0.60-1.20 mg/dl Est Creatinine Clear Calc Drug Dose 84.1 ml/min Estimated GFR () 71.9 Estimated GFR (Non- 62.1 BUN/Creatinine Ratio 11.4 10-20 Random Glucose 136 70-99 mg/dl Calcium Level 8.2 8.5-10.1 mg/dl Test 12/21/16 07:43 Range/Units Bedside Glucose 135 70-90 mg/dl Microbiology Results 12/21/16 Shiga Toxin Test, Received Pending 12/21/16 Stool Culture, Received Pending 12/21/16 C.difficile Toxin B Gene (PCR) - Final, Complete No C. difficile toxin B gene detected
--- NOTE | 2016-12-20 22:54 | DIAGNOSTIC IMAGING REPORT ---
ULTRASOUND BILATERAL LOWER EXTREMITY VENOUS CLINICAL HISTORY: Lower extremity edema. COMPARISON STUDY: Lower extremity venous ultrasound dated 10/01/2005. TECHNIQUE: Real-time, grayscale, and color Doppler sonography of the deep veins of the right and left lower extremity was performed from the inguinal crease to the calf. Compression and augmentation were utilized. FINDINGS: There is no sonographic evidence of deep venous thrombosis identified in the right or left lower extremity. The common femoral, superficial femoral, and popliteal veins are patent and normally compressible bilaterally. The greater saphenous vein and the profunda femoris vein at the junction with the common femoral vein are clear in both legs. The visualized calf veins are patent bilaterally. IMPRESSION: There is no sonographic evidence of deep venous thrombosis identified in the right or left lower extremity. Electronically signed by: Amarjit Bess M.D. 12/20/2016 10:53 PM Dictated Date/Time: 12/20/2016 10:52 PM
--- NOTE | 2016-12-20 22:57 | DIAGNOSTIC IMAGING REPORT ---
MRI OF THE BRAIN WITHOUT IV CONTRAST CLINICAL HISTORY: Headache. COMPARISON STUDY: CT of the brain dated 12/19/2016. TECHNIQUE: MRI of the brain was performed utilizing various T1 and T2-weighted sequences in the axial, sagittal, and coronal planes. IV contrast was not administered for this examination. FINDINGS: Brain parenchyma: The brain parenchyma is normal in appearance. There is no hemorrhage or mass effect. There is no restricted diffusion to suggest acute ischemia. [place]-white matter differentiation is preserved. No extra-axial fluid collection is seen. The cerebellar tonsils are normal in configuration. Ventricles, sulci, and cisterns: Normal in configuration. Pituitary and sella: Unremarkable. Intracranial vasculature: Normal flow voids are maintained at the skull base. Orbits: The bony orbits are grossly intact. Orbital contents are normal in appearance. Sinuses and mastoids: Clear. Calvarium: Unremarkable. Cervical cord: Partially visualized cervical spinal cord is normal in morphology and signal intensity. IMPRESSION: No acute intracranial abnormality. Electronically signed by: Amarjit Bess M.D. 12/20/2016 10:55 PM Dictated Date/Time: 12/20/2016 10:53 PM
[2016-12-21 00:22] VITALS: BP 129/76; PULSE 76; TEMP 36.9; O2SAT 96
[2016-12-21 06:48] LABS: HEMATOCRIT 33.8 % (37-47); MEAN CELL VOLUME 90.6 fL (80-100); MEAN CORPUSCULAR HEMOGLOBIN 30.8 pg (25-34); RED BLOOD COUNT 3.73 M/uL (4.2-5.4); WHITE BLOOD COUNT 6.12 K/uL (4.8-10.8)
[2016-12-21 06:50] LABS: MEAN PLATELET VOLUME 8.9 fL (7.4-10.4); PLATELET COUNT 59 K/uL (130-400)
[2016-12-21 07:17] VITALS: BP 110/65; PULSE 78; TEMP 37.1; O2SAT 90
[2016-12-21 07:24] LABS: BUN/CREATININE RATIO 11.4 (10-20); CALCIUM 8.2 mg/dl (8.5-10.1); POTASSIUM 3.9 mmol/L (3.5-5.1)
[2016-12-21 07:40] LABS: BASO % 0.3 %; BASO ABS # 0.02 K/uL (0-0.2); COMPLETE YES; EOS % 4.4 %; IG% 0.3 %; LYMPH % 18.6 %; LYMPH ABS # 1.14 K/uL (1.2-3.4); MONO % 7.5 %; NEUT % 68.9 %
[2016-12-21] MEDS: INSULIN ASPART 100 UNITS/ML 3 ML PEN SC SCH ×4 (08:35→20:15)
[2016-12-21] MEDS: TRAMADOL HCL 50 MG TAB PO PRN ×3 (08:40→21:59)
[2016-12-21] MEDS ORDERED: DOXYCYCLINE IV 100 MG in DEXTROSE 5% 100ML 100 ML IV SCH (09:00)
[2016-12-21] MEDS: GUAIFENESIN SUGAR FREE 100 MG/5 ML UDC PO PRN ×2 (13:12→21:59)
--- NOTE | 2016-12-21 14:44 | Progress Note ---
Internal Med Progress Note Date of Service: Dec 21, 2016. Provider Documentation: Subjective patient eating at beside. no acute distress ad recent negative Brain MRI with some complaints of headache when asked. no visual changes. Reports abdominal discomfort resolving. denies vomiting. OBJECTIVE: Physical Exam: General Appearance:Obese, no apparent distress Head: normocephalic, Atraumatic Eyes: normal inspection, EOMI, PERRLA Neck: supple, Trachea midline Respiratory/Chest: Normal breath sounds, clear to auscultation Cardiovascular: S1, S2, No murmur Abdomen/GI:Soft, Non tender, Bowel sounds present Extremities/Musculoskelatal:normal inspection, bilateral lower extremity swelling Neurologic/Psych:AAOX3, grossly no focal neurological deficits Skin: normal color, warm ASSESSMENT & PLAN: 56 year F who presented with nausea, vomiting, diarrhea with imaging significant for hepatic steatosis and splenomegaly and also has thrombocytopenia SATHYA: resolving, creatinine 1.3 to 1.1 to 1 Abnormal UA: likely contaminant URINE CULTURE Final 12/21/16-1106 MORE THAN THREE TYPES OF ORGANISMS PRESENT, ALL HIGH COUNTS MIXED PROBABLE SKIN PETER Splenomegaly Abdominal CT 1. Within limitations of noncontrast technique, no acute intra-abdominal pathology. 2. Moderately enlarged spleen measuring over 19 cm in maximal sagittal dimension. This could be reactive in the presence of a recent or ongoing viral infection, secondary to sarcoidosis, or a lymphoproliferative disorder among other etiologies. 3. Mosaic attenuation at the lung bases suggest small airways disease Thrombocytopenia Chronic thrombocytopenia (noted on 05/2015 outpatient blood work) Platelets: 81K to 62 K to 59K Heme Onc consulted "Splenomegaly is most likely the cause of thrombocytopenia" Normocytic Anemia Hgb 13.5, 11.4, 11.5 trend CBC Headache: Persistent intermittently, occipital region currently No neck stiffness, focal deficits or change in vision CT Head: no acute pathology Brain MRI head No acute intracranial abnormality DM II: on oral medications at home well controlled as of recent outpx HgA1c. ISS, monitor Chronic Lymphedema vs Venous Stasis: Lower Evtremity Ultrasound: There is no sonographic evidence of deep venous thrombosis identified in the right or left lower extremity DVT px SCDs RE thrombocytopenia Code Status: Full code. Vital Signs: Date Time Temp Pulse Resp B/P (MAP) Pulse Ox O2 Delivery O2 Flow Rate FiO2 12/21/16 08:25 Room Air 12/21/16 07:17 37.1 78 18 110/65 (80) 90 Room Air 12/21/16 00:22 36.9 76 20 129/76 (93) 96 Room Air 12/20/16 23:30 Room Air 12/20/16 16:00 94 Room Air 12/20/16 15:32 37.0 73 20 121/70 (87) 94 Room Air Lab Results: Results Past 24 Hours Test 12/20/16 16:44 12/20/16 20:27 12/21/16 06:21 12/21/16 07:43 Range/Units Bedside Glucose 157 198 135 70-90 mg/dl White Blood Count 6.12 4.8-10.8 K/uL Red Blood Count 3.73 4.2-5.4 M/uL Hemoglobin 11.5 12.0-16.0 g/dL Hematocrit 33.8 37-47 % Mean Corpuscular Volume 90.6 80-100 fL Mean Corpuscular Hemoglobin 30.8 25-34 pg Mean Corpuscular Hemoglobin Concent 34.0 32-36 g/dl Platelet Count 59 130-400 K/uL Mean Platelet Volume 8.9 7.4-10.4 fL Neutrophils (%) (Auto) 68.9 % Lymphocytes (%) (Auto) 18.6 % Monocytes (%) (Auto) 7.5 % Eosinophils (%) (Auto) 4.4 % Basophils (%) (Auto) 0.3 % Neutrophils # (Auto) 4.21 1.4-6.5 K/uL Lymphocytes # (Auto) 1.14 1.2-3.4 K/uL Monocytes # (Auto) 0.46 0.11-0.59 K/uL Eosinophils # (Auto) 0.27 0-0.5 K/uL Basophils # (Auto) 0.02 0-0.2 K/uL RDW Standard Deviation 47.3 36.4-46.3 fL RDW Coefficient of Variation 14.3 11.5-14.5 % Immature Granulocyte % (Auto) 0.3 % Immature Granulocyte # (Auto) 0.02 0.00-0.02 K/uL Sodium Level 140 136-145 mmol/L Potassium Level 3.9 3.5-5.1 mmol/L Chloride Level 105 98-107 mmol/L Carbon Dioxide Level 29 21-32 mmol/L Anion Gap 6.0 3-11 mmol/L Blood Urea Nitrogen 11 7-18 mg/dl Creatinine 1.00 0.60-1.20 mg/dl Est Creatinine Clear Calc Drug Dose 84.1 ml/min Estimated GFR () 71.9 Estimated GFR (Non- 62.1 BUN/Creatinine Ratio 11.4 10-20 Random Glucose 136 70-99 mg/dl Calcium Level 8.2 8.5-10.1 mg/dl Test 12/21/16 11:23 Range/Units Bedside Glucose 157 70-90 mg/dl Microbiology Results 12/21/16 Shiga Toxin Test, Received Pending 12/21/16 Stool Culture, Received Pending 12/21/16 C.difficile Toxin B Gene (PCR) - Final, Complete No C. difficile toxin B gene detected
[2016-12-21 15:05] VITALS: BP 119/75; PULSE 83; TEMP 37.3; O2SAT 93
[2016-12-21 16:00] VITALS: O2SAT 93
--- NOTE | 2016-12-21 18:59 | Hematology/Oncology Prog Note ---
Hematology/Onc Progress Note Date of Service Dec 21, 2016. Subjective -I saw her at bedside at about 5:00 p.m. she is sitting comfortably, no evidence of DVT noted in the right lower extremity Doppler evaluation, now started her on doxycycline antibiotic, slight improvement of the right leg cellulitis noted still has swelling of the right leg, she does complain of some pain in the left side of the abdomen, slightly less pain in the right side of the abdomen, still complains of occipital headache, no nausea, no vomiting, no photophobia hemodynamically she has remained stable, no new bleeding complications, no fever. I reviewed her blood workup done on 12/21/2016: -WBC 6001 0, H&H of 11.5/33.8, platelet count slightly dropped to around 59,000 -Brain MRI (without contrast) done on 12/20/2016--> negative - bilateral lower extremity Doppler evaluation done on 12/20/2016 showed no evidence of DVT. It appears that she is gradually getting better in terms of abdominal pain, still has headaches but no focal neurological symptoms, brain imaging negative. Slight drop in the platelet count noted. With another blood count tomorrow morning. Will follow-up. Vital Signs Vital Signs Past 12 Hours Date Time Temp Pulse Resp B/P (MAP) Pulse Ox O2 Delivery O2 Flow Rate FiO2 12/21/16 16:00 93 Room Air 12/21/16 15:05 37.3 83 20 119/75 (90) 93 Room Air 12/21/16 08:25 Room Air 12/21/16 07:17 37.1 78 18 110/65 (80) 90 Room Air
[2016-12-21 23:58] VITALS: BP 117/77; PULSE 82; TEMP 37.4; O2SAT 93
[2016-12-22] VITALS (7 sets, daily range): BP systolic 105–130; BP diastolic 64–76; PULSE 68–79; TEMP 36.7–36.9; O2SAT 91–96
[2016-12-22 06:38] LABS: HEMATOCRIT 34.9 % (37-47); MEAN CELL VOLUME 90.4 fL (80-100); MEAN CORPUSCULAR HEMOGLOBIN 30.1 pg (25-34); MEAN CORPUSCULAR HGB CONC 33.2 g/dl (32-36); RED BLOOD COUNT 3.86 M/uL (4.2-5.4); WHITE BLOOD COUNT 6.34 K/uL (4.8-10.8)
[2016-12-22 06:42] LABS: MEAN PLATELET VOLUME 8.9 fL (7.4-10.4); PLATELET COUNT 76 K/uL (130-400)
[2016-12-22 07:19] LABS: CALCIUM 8.2 mg/dl (8.5-10.1); CREATININE 1.1 mg/dl (0.60-1.20); POTASSIUM 4.1 mmol/L (3.5-5.1)
[2016-12-22 07:21] LABS: BASO % 0.2 %; BASO ABS # 0.01 K/uL (0-0.2); COMPLETE YES; EOS % 4.9 %; IG% 0.2 %; LYMPH % 20.2 %; LYMPH ABS # 1.28 K/uL (1.2-3.4); MONO % 8.5 %
[2016-12-22] MEDS: INSULIN ASPART 100 UNITS/ML 3 ML PEN SC SCH ×4 (07:47→20:27)
[2016-12-22] MEDS: TRAMADOL HCL 50 MG TAB PO PRN (07:56)
--- NOTE | 2016-12-22 13:18 | Progress Note ---
Internal Med Progress Note Date of Service: Dec 22, 2016. Provider Documentation: Subjective patient continues to have headache and neck pain. patient denies pain elsewhere of the body. she has been able to cooperate with physical therapy OBJECTIVE: Physical Exam: General Appearance: large body habitus female, no apparent distress Head: normocephalic, atraumatic Eyes: normal inspection, EOMI, Neck: supple, Trachea midline, some tenderness on palpation of posterior neck Respiratory/Chest: Normal breath sounds, clear to auscultation Cardiovascular: S1, S2, No murmur Abdomen/GI: Soft, Non tender, Bowel sounds present Extremities:normal inspection, bilateral lower extremity swelling Neurologic/Psych:AAOX3, grossly no focal neurological deficits Skin: normal color, warm ASSESSMENT & PLAN: 56 year F who presented with nausea, vomiting, diarrhea with imaging significant for hepatic steatosis and splenomegaly and also has thrombocytopenia SATHYA: resolving, creatinine 1.3 to 1.1 to 1 to 1.1 Abnormal UA: likely contaminant URINE CULTURE Final 12/21/16-1106 MORE THAN THREE TYPES OF ORGANISMS PRESENT, ALL HIGH COUNTS MIXED PROBABLE SKIN PETER Splenomegaly Abdominal CT 1. Within limitations of noncontrast technique, no acute intra-abdominal pathology. 2. Moderately enlarged spleen measuring over 19 cm in maximal sagittal dimension. This could be reactive in the presence of a recent or ongoing viral infection, secondary to sarcoidosis, or a lymphoproliferative disorder among other etiologies. 3. Mosaic attenuation at the lung bases suggest small airways disease Thrombocytopenia Chronic thrombocytopenia (noted on 05/2015 outpatient blood work) Platelets: 81K to 62 K to 59K to 76K Heme Onc consulted "Splenomegaly is most likely the cause of thrombocytopenia" Normocytic Anemia Hgb 13.5, 11.4, 11.5, 11.6 trend CBC Headache: Persistent intermittent headaches, thus far with negative workup: CT Head: no acute pathology, Brain MRI head: No acute intracranial abnormality minimal suspicion for infectious process such as meningitis due to unremarkable clinical findings, normal vitals, and no leukocytosis will consult with neurology DM II: on oral medications at home well controlled as of recent outpx HgA1c. ISS, monitor Chronic Lymphedema vs Venous Stasis: Lower Evtremity Ultrasound: There is no sonographic evidence of deep venous thrombosis identified in the right or left lower extremity DVT px SCDs RE thrombocytopenia Code Status: Full code. Disposition: discharge home if neurology evaluation has low suspicion for acute neurologic pathology, has been having increased platelets, splenomegaly without acute findings that requires surgical evaluation at this time, likely will need outpatient monitoring of platelets and spleen and liver Patient's PMD is Internal Medicine [facility] Jenaro Rollins MD Vital Signs: Date Time Temp Pulse Resp B/P (MAP) Pulse Ox O2 Delivery O2 Flow Rate FiO2 12/22/16 08:04 36.7 75 16 130/74 (92) 94 Room Air 12/22/16 08:00 93 Room Air 12/22/16 00:01 Room Air 12/21/16 23:58 37.4 82 20 117/77 (90) 93 Room Air 12/21/16 16:00 93 Room Air 12/21/16 15:05 37.3 83 20 119/75 (90) 93 Room Air Lab Results: Results Past 24 Hours Test 12/21/16 16:55 12/21/16 19:44 12/22/16 06:26 12/22/16 07:15 Range/Units Bedside Glucose 123 151 125 70-90 mg/dl White Blood Count 6.34 4.8-10.8 K/uL Red Blood Count 3.86 4.2-5.4 M/uL Hemoglobin 11.6 12.0-16.0 g/dL Hematocrit 34.9 37-47 % Mean Corpuscular Volume 90.4 80-100 fL Mean Corpuscular Hemoglobin 30.1 25-34 pg Mean Corpuscular Hemoglobin Concent 33.2 32-36 g/dl Platelet Count 76 130-400 K/uL Mean Platelet Volume 8.9 7.4-10.4 fL Neutrophils (%) (Auto) 66.0 % Lymphocytes (%) (Auto) 20.2 % Monocytes (%) (Auto) 8.5 % Eosinophils (%) (Auto) 4.9 % Basophils (%) (Auto) 0.2 % Neutrophils # (Auto) 4.19 1.4-6.5 K/uL Lymphocytes # (Auto) 1.28 1.2-3.4 K/uL Monocytes # (Auto) 0.54 0.11-0.59 K/uL Eosinophils # (Auto) 0.31 0-0.5 K/uL Basophils # (Auto) 0.01 0-0.2 K/uL RDW Standard Deviation 46.9 36.4-46.3 fL RDW Coefficient of Variation 14.2 11.5-14.5 % Immature Granulocyte % (Auto) 0.2 % Immature Granulocyte # (Auto) 0.01 0.00-0.02 K/uL Sodium Level 138 136-145 mmol/L Potassium Level 4.1 3.5-5.1 mmol/L Chloride Level 104 98-107 mmol/L Carbon Dioxide Level 29 21-32 mmol/L Anion Gap 5.0 3-11 mmol/L Blood Urea Nitrogen 12 7-18 mg/dl Creatinine 1.10 0.60-1.20 mg/dl Est Creatinine Clear Calc Drug Dose 76.5 ml/min Estimated GFR () 64.1 Estimated GFR (Non- 55.3 BUN/Creatinine Ratio 11.0 10-20 Random Glucose 125 70-99 mg/dl Calcium Level 8.2 8.5-10.1 mg/dl Test 12/22/16 11:03 Range/Units Bedside Glucose 159 70-90 mg/dl
--- NOTE | 2016-12-22 16:38 | DIAGNOSTIC IMAGING REPORT ---
C-SPINE ROUTINE 4 OR 5 VIEWS CLINICAL HISTORY: Neck pain. COMPARISON STUDY: No previous studies for comparison. FINDINGS: C7 is slightly obscured on this exam. Alignment of the cervical spine is anatomic. Vertebral body heights are maintained. There is no fracture or suspicious lesion within the cervical spine. There is mild multilevel degenerative disc disease and facet arthrosis of the cervical spine. IMPRESSION: 1. No acute cervical spine fracture or subluxation. 2. Mild multilevel degenerative disc disease and facet arthrosis of the cervical spine. 3. Slight obscuration of the inferior endplate of C7. Electronically signed by: Junior Isaacs M.D. 12/22/2016 4:37 PM Dictated Date/Time: 12/22/2016 4:35 PM
--- NOTE | 2016-12-22 18:03 | CONSULTATION REPORT ---
DATE OF CONSULTATION: 12/22/2016 CONSULTATION FOR: Dr. Nickerson. HISTORY OF PRESENT ILLNESS: Juli is a 56-year-old woman known to Dr. Jenaro Sexton who was admitted to the hospital for fever and cellulitis. In the course of this, she developed a headache which has persisted but was bifrontal at the onset, but now is more bioccipital associated with some tenderness to touch. She has a past history of obstructive sleep apnea, lymphedema, type 2 diabetes, dyslipidemia, thrombocytopenia and is moderately over nourished. On the day before admission on the , she got a sandwich in [employer] then felt sick, nauseated, had vomiting, loose stools, achy abdominal pain and was brought to the Emergency Room. She has been admitted and has been treated with antibiotics, has been seen by hematology. She was found to have a number of problems which are chronic, including splenomegaly, thrombocytopenia, but has had imaging studies of her brain that showed no significant abnormalities including in the upper cervical and craniocervical junctional area where her pain is now localized and has no meningeal signs, photophobia and sonophobia, etc. that would suggest a [employer]IST[employer] infection. She is getting somewhat better but still has a persistent pain and Dr. Nickerson wants neurology to take a look at her to see we have any further suggestions. OBJECTIVE: On neurologic examination today, she is awake, alert, oriented in 3 spheres. She has normal range of motion about the neck. Eye movements are clear. Fundi are poorly seen. Facial motility and strength is normal. Facial sensation is normal. There is no abnormal involuntary movements, tremor, tics, choreiform activity, drift or pronation sign. She has normal to hypoactive reflexes, downgoing toes and essentially normal sensory examination with the exception of some vibratory loss of the distal lower extremities. She is quite tender over the occipital regions. No filling nodularity of the temporal arteries. At this point, I think this is a nonspecific headache syndrome, but there are elements to suggest perhaps an occipital neuralgia component, although I am not sure why this would have occurred other than perhaps some odd positioning of her head and neck during hospital stay. This probably started as a toxic headache and may have morphed into a slightly different one at this point. She does not have a prior history of migraines. She does not have any significant systemic complaints and make me think of temporal arteritis, and I have suggested to Dr. Nickerson only that perhaps a pain management consultation see her in the morning and consider an injection in this area to see if this can be break up the current pain. Otherwise, I would simply has some nonopiate analgesics and give her a little time to recover from her current infectious process. I will check back with her tomorrow. ONEAL
--- NOTE | 2016-12-22 18:28 | Hematology/Oncology Prog Note ---
Hematology/Onc Progress Note Date of Service Dec 22, 2016. Subjective I saw her bedside at about 5:00 p.m., she was sitting comfortably in the chair next to the bed, she says that her abdominal pain has subsided completely, no nausea or vomiting, eating quite well, still complains of occipital headache Today she was seen by neurologist Dr. Hernandez, suggested non-opiate analgesics for symptomatic treatment of headache, she does not have any focal neurological symptoms or photophobia or other neurological symptoms. Blood workup done on 12/22/2016:-WBC 6300, H&H of 11.6/34.9, [place] [address]. C-spine x-ray done on 12/22/2016 showed no fracture or subluxation, mild DJD noted. On exam: - Alert and oriented x3, well built obese woman, not in any distress. - HEENT: no icterus, no pallor, Throat: Normal. - Neck: No palpable cervical lymphadenopathy. - Chest: clear to auscultation. - Abdomen: soft, nontender, no hepatomegaly, I could not palpate spleen in her case. - No focal neuro deficit. - Extremities: no finger clubbing, bilateral leg edema, more on the right side but improvement of the cellulitis noted.. Her platelet count has improved to some extent, latest value is around 76,000, no new bleeding complications. I would like to observe at this time, will have another CBCD tomorrow. Because of underlying splenomegaly, her platelet count is likely to stay on the lower side around 100,000. Once she is discharged, I would like to see her back in the office and the will decide about further workup. Vital Signs Vital Signs Past 12 Hours Date Time Temp Pulse Resp B/P (MAP) Pulse Ox O2 Delivery O2 Flow Rate FiO2 12/22/16 16:00 91 Room Air 12/22/16 15:07 36.9 77 20 111/70 (84) 91 Room Air 12/22/16 12:04 77 94 12/22/16 08:04 36.7 75 16 130/74 (92) 94 Room Air 12/22/16 08:00 93 Room Air
[2016-12-22] MEDS ORDERED: LEVALBUTEROL 1.25MG/0.5ML NEB INH PRN (23:45)
[2016-12-23] MEDS: INSULIN ASPART 100 UNITS/ML 3 ML PEN SC SCH ×4 (07:36→21:00)
[2016-12-23 07:51] LABS: HEMATOCRIT 34.9 % (37-47); MEAN CELL VOLUME 90.6 fL (80-100); MEAN CORPUSCULAR HEMOGLOBIN 30.9 pg (25-34); MEAN CORPUSCULAR HGB CONC 34.1 g/dl (32-36); RED BLOOD COUNT 3.85 M/uL (4.2-5.4); WHITE BLOOD COUNT 4.96 K/uL (4.8-10.8)
[2016-12-23 08:00] VITALS: O2SAT 96
[2016-12-23 08:02] VITALS: BP 151/91; PULSE 69; TEMP 37; O2SAT 93
[2016-12-23 08:15] LABS: BUN/CREATININE RATIO 12.7 (10-20); CALCIUM 9.1 mg/dl (8.5-10.1); CREATININE 0.97 mg/dl (0.60-1.20); POTASSIUM 3.7 mmol/L (3.5-5.1)
[2016-12-23] MEDS ORDERED: BUPIVACAINE 0.5 % 5 MG/1 ML PF 10ML VIAL ONE (08:17)
[2016-12-23] MEDS ORDERED: TRIAMCINOLONE ACET 40 MG/ML VIAL ONE (08:21)
[2016-12-23 08:37] LABS: MEAN PLATELET VOLUME 9.1 fL (7.4-10.4); PLATELET COUNT 83 K/uL (130-400)
[2016-12-23 08:41] LABS: BASO % 0.4 %; BASO ABS # 0.02 K/uL (0-0.2); COMPLETE YES; IG% 0.2 %; LYMPH % 23.8 %; LYMPH ABS # 1.18 K/uL (1.2-3.4); MONO % 6.7 %; NEUT % 63.9 %
--- NOTE | 2016-12-23 10:40 | Pain Management Consultation ---
Pain Management Consultation Date of Consultation Dec 23, 2016. Reason for Consultation Persisting left occipital headache Pain Location 1 - Left occipital scalp and upper neck History Miss Chand is a 56-year-old white female who was initially admitted for fever and cellulitis. She has a significant past medical history of JUAN, lymphedema, diabetes mellitus [id number], thrombocytopenia and obesity. She reported onset of a right-sided frontal headache at the time of admission which has progressed to a left-sided predominant occipital headache at this time over the past few days. She describes the pain as a fairly constant mild pressure and aching sensation with intermittent episodes of more sharp and throbbing pain which can last for 1-15 minutes per episode. She reports multiple episodes throughout most days. She reports some radiation into the upper neck but denies radiation towards the shoulder or upper extremities. Patient reports some distribution in the left hemicranial region but denies periorbital pain. She denies visual disturbances, light or sound sensitivities. She denies associated nausea or vomiting. She denies history of similar type headache in the past. She has undergone extensive evaluation upon this admission with MRI of the brain as well as CT scan without abnormal findings. Neurology requested evaluation due to concerns over her occipital neuralgia to determine whether occipital nerve block would be appropriate in attempt to diminish her headache complaint. Patient has no further constitutional complaints at this time. Past Medical/Surgical History (1) Hyperglycemia (2) Dehydration (3) Hyperglycemia (4) Sepsis (5) Cytopenia (6) Headache (7) Splenomegaly (8) Thrombosis (9) Nausea, vomiting and diarrhea (10) Diabetes (11) Cellulitis (12) UTI (urinary tract infection) (13) S/P cholecystectomy Family History No pertinent family history Social / Work History Smoking Status: Never smoker Smokeless Tobacco Use: No Alcohol Use: none Drug Use: none Marital Status: Housing Status: lives with family Occupation: disabled Allergies Coded Allergies: Sulfa Drugs (Verified Allergy, Unknown, 12/19/16) Medications Current Inpatient Medications Medications (Trade) Dose Ordered Sig/Manuela Route Start Time Stop Time Status Last Admin Dose Admin Hydromorphone HCl (Dilaudid Inj) 0.5 mg Q3H PRN IV 12/19/16 22:45 01/02/17 22:44 Tramadol HCl (Ultram Tab) not relieved by tylenol @ Q6H PRN PO 12/19/16 22:45 01/18/17 22:44 12/22/16 07:56 50 MG Promethazine HCl 12.5 mg/Sodium Chloride 50.5 ml @ 204 mls/hr Q6H PRN IV 12/19/16 22:45 01/18/17 22:44 Ondansetron HCl (Zofran Inj) 4 mg Q6H PRN IV 12/19/16 22:45 01/18/17 22:44 Acetaminophen (Tylenol Tab) 650 mg Q4H PRN PO 12/19/16 23:00 01/18/17 22:59 12/20/16 11:26 650 MG Insulin Aspart (novoLOG ASPART) SLIDING SCALE If C... ACHS SC 12/20/16 06:30 01/19/17 06:59 12/20/16 21:13 1 UNITS Glucose (Glucose 40% Gel) 15-30 GRAMS 15 GRAMS... UD PRN PO 12/19/16 23:00 01/18/17 22:59 Glucose (Glucose Chew Tab) 4-8 Tablets 4 Tabl... UD PRN PO 12/19/16 23:00 01/18/17 22:59 Dextrose (Dextrose 50% 50ML Syringe) 25-50ML OF 50% DW IV FOR... UD PRN IV 12/19/16 23:00 01/18/17 22:59 Glucagon (Glucagon Inj) 1 mg UD PRN SQ 12/19/16 23:00 01/18/17 22:59 Lorazepam (Ativan Inj) 0.5 mg Q4H PRN IV 12/19/16 23:00 01/18/17 22:59 Guaifenesin (Robitussin Sugar Free Syrup) 100 mg Q6H PRN PO 12/21/16 12:30 01/20/17 12:29 12/21/16 21:59 100 MG Levalbuterol (Xopenex 1.25MG/ 0.5ML Neb) 1.25 mg Q6H PRN INH 12/22/16 23:45 01/21/17 23:44 12/23/16 00:00 1.25 MG Review of Systems Patient denies complaints related to cardiac, pulmonary, GI, , endocrine, neurologic, hepatic, renal, ENT, dermatological or musculoskeletal other than those described above in history of present illness. Physical Exam Height & Weight: Height 5 feet, 6.00 inches. Weight 128.300 (Kilograms) 282 (Pounds) Last Vital Signs Documentation Date Time Temp Pulse Resp B/P (MAP) Pulse Ox O2 Delivery O2 Flow Rate FiO2 12/23/16 08:02 37.0 69 20 151/91 (111) 93 Room Air Exam: Gen.: Patient sitting up upon entering the room finishing breakfast. She appears to be in no acute distress. Speech and thought process appropriate. Mood and affect appropriate. Cognition intact. Patient morbidly obese. Eyes: Pupils equal round reactive to light. Extraocular muscles are intact. Neck: Supple without adenopathy. Full range of motion without limitation. Slight increase in discomfort with left lateral rotation and shoulder maneuvering when compared to the right. Nontender with flexion and extension. Patient is evidence of paravertebral spasm on the left with a myoneural trigger point measuring less than 0.5 cm approximate level of C2-3. Tenderness to palpation associated. Nontender the trapezius region. No focal midline tenderness. No focal facet joint tenderness to provocative testing appreciated due to overbearing myofascial component. Spurling maneuver negative bilaterally. Head: Normocephalic and atraumatic. Patient is exquisitely tender over the left greater occipital nerve to direct palpation, nontender corresponding the right. There is no evidence of edema, erythema or skin breakdown at the site of maximal tenderness. Patient nontender over the lesser occipital, auriculotemporal, supraorbital or supratrochlear nerves bilaterally. Lower extremity: Diffuse edema of the ankle and pretibial locations with hemosiderosis and mild erythema right greater than left-sided. Neurologic: Cranial nerves grossly intact. Ambulatory function was slowed and guarded. Patient was able to transfer from bed to chair. Laboratory Laboratory Results (Last CBC): 12/23/16 07:32 Red Blood Count 3.85 L, Mean Corpuscular Volume 90.6, Mean Corpuscular Hemoglobin 30.9, Mean Corpuscular Hemoglobin Concent 34.1, Mean Platelet Volume 9.1, Neutrophils (%) (Auto) 63.9, Lymphocytes (%) (Auto) 23.8, Monocytes (%) ( Auto) 6.7, Eosinophils (%) (Auto) 5.0, Basophils (%) (Auto) 0.4, Neutrophils # ( Auto) 3.17, Lymphocytes # (Auto) 1.18 L, Monocytes # (Auto) 0.33, Eosinophils # (Auto) 0.25, Basophils # (Auto) 0.02 Imaging MRI: non enhanced, reports reviewed MRI Findings Patient: KOSTAS CHAND Address1: [address] [facility] Rec: [id number] Address2: Acct ID: [id number] [facility] Zip: [place] [address] Date: 1960 Sex: F Room/Bed: [facility] Ref Phy: Jenaro Rollins M.D. SC: [id number] Att Phy: Johan Woodard MD Report #: [id number] Helen Phy: Jenaro Rollins M.D. Test: BRWO Admit Phy: Johan Woodard MD Driver Manager: DIMPLE Interpreting Phy: Amarjit Bess M.D. Diagnosis: SEPSIS Ordering Phy: Johan Woodard MD Service Date: 12/20/16 Admit Date: 12/19/1708/17/17 MNE: [id number] CONF: DICTATED BY: Amarjit Bess M.D.]] CC: Jenaro Rollins M.D. Vangala, Satish K., MD Endcc: [~ rep ct add3]] MRI OF THE BRAIN WITHOUT IV CONTRAST CLINICAL HISTORY: Headache. COMPARISON STUDY: CT of the brain dated 12/19/2016. TECHNIQUE: MRI of the brain was performed utilizing various T1 and T2-weighted sequences in the axial, sagittal, and coronal planes. IV contrast was not administered for this examination. FINDINGS: Brain parenchyma: The brain parenchyma is normal in appearance. There is no hemorrhage or mass effect. There is no restricted diffusion to suggest acute ischemia. [place]-white matter differentiation is preserved. No extra-axial fluid collection is seen. The cerebellar tonsils are normal in configuration. Ventricles, sulci, and cisterns: Normal in configuration. Pituitary and sella: Unremarkable. Intracranial vasculature: Normal flow voids are maintained at the skull base. Orbits: The bony orbits are grossly intact. Orbital contents are normal in appearance. Sinuses and mastoids: Clear. Calvarium: Unremarkable. Cervical cord: Partially visualized cervical spinal cord is normal in morphology and signal intensity. IMPRESSION: No acute intracranial abnormality. Electronically signed by: Amarjit Bess M.D. 12/20/2016 10:55 PM Dictated Date/Time: 12/20/2016 10:53 PM The status of this report is Signed. Draft = Not yet reviewed or approved by Radiologist. Signed = Reviewed and approved by Radiologist. CT: non enhanced, reports reviewed CT Findings Patient: KOSTAS CHAND Address1: [facility] [address] [facility] Rec: [id number] Address2: Acct ID: [id number] [facility] Zip: [place] [address] Date: 1960 Sex: F Room/Bed: Ref Phy: Jenaro Rollins M.D. SC: PHONG Reyes Phy: Report #: [id number] Helen Phy: Jenaro Rollins M.D. Test: HWO Admit Phy: Driver Manager: GILLIAN Interpreting Phy: Sam Mueller MD Diagnosis: DIZZY,SHARP PAINS IN HEAD & ABD,GRINDING FEELING Ordering Phy: Chad Braswell MD Service Date: 12/19/16 Admit Date: 12/19/16 MNE: [id number] CONF: DICTATED BY: Sam Mueller MD]] CC: Chad Braswell MD Pilgram, Philip A., M.D. Endcc: [~ rep ct add3]] HEAD WITHOUT CONTRAST (CT) CLINICAL HISTORY: 56 years-old Female presenting with headache. TECHNIQUE: Multidetector CT imaging of the head was performed without the use of intravenous contrast. IV contrast: None. A dose lowering technique was used consistent with the principles of ALARA (as low as reasonably achievable). COMPARISON: None. CT DOSE (mGy.cm): The estimated cumulative dose is 537.48 mGy.cm. FINDINGS: Refined Syrup Operator topogram: Unremarkable. Ventricles and sulci normal in size. Brain parenchyma normal in appearance with preserved de la rosa-white differentiation. Prominent pineal calcification. No mass effect or midline shift. No hemorrhage or acute territorial infarct. No extra-axial fluid collection. Paranasal sinuses and mastoid air cells clear. Calvarium intact. IMPRESSION: 1. No acute intracranial pathology. Electronically signed by: Sam Mueller M.D. 12/19/2016 9:08 PM Dictated Date/Time: 12/19/2016 9:06 PM The status of this report is Signed. Draft = Not yet reviewed or approved by Radiologist. Signed = Reviewed and approved by Radiologist. Radiology: reports reviewed Radiology Findings Patient: KOSTAS CHAND Address1: [facility] [address] [facility] Rec: [id number] Address2: Acct ID: [id number] [facility] Zip: [place] [address] Date: 1960 Sex: F Room/Bed: [facility] Ref Phy: Jenaro Rollins M.D. SC: MARLI Att Phy: Stefan Nickerson M.D. Report #: [id number] Helen Phy: Jenaro Rollins M.D. Test: CS Admit Phy: Johan Woodard MD Driver Manager: DEJAH Interpreting Phy: Junior Isaacs MD Diagnosis: SEPSIS Ordering Phy: Stefan Nickerson M.D. Service Date: 12/22/16 Admit Date: 12/19/1708/17/17 MNE: PWRSCRIBE CONF: DICTATED BY: Junior Isaacs MD]] CC: Jenaro Rollins M.D. Wong, Gary K., M.D. Endcc: [~ rep ct add3]] C-SPINE ROUTINE 4 OR 5 VIEWS CLINICAL HISTORY: Neck pain. COMPARISON STUDY: No previous studies for comparison. FINDINGS: C7 is slightly obscured on this exam. Alignment of the cervical spine is anatomic. Vertebral body heights are maintained. There is no fracture or suspicious lesion within the cervical spine. There is mild multilevel degenerative disc disease and facet arthrosis of the cervical spine. IMPRESSION: 1. No acute cervical spine fracture or subluxation. 2. Mild multilevel degenerative disc disease and facet arthrosis of the cervical spine. 3. Slight obscuration of the inferior endplate of C7. Electronically signed by: Junior Isaacs M.D. 12/22/2016 4:37 PM Dictated Date/Time: 12/22/2016 4:35 PM The status of this report is Signed. Draft = Not yet reviewed or approved by Radiologist. Signed = Reviewed and approved by Radiologist. Assessment 1. Left-sided occipital headache-possible occipital neuralgia 2. Myofascial pain with spasm-cervical 3. Diabetes hlwekzkq-fnm-wjffctn-dependent 4. Morbid obesity Recommendations 1. We discussed pursuing occipital nerve block procedure and trigger point injection in the left paravertebral cervical musculature at today's visit in great detail and she was agreeable. Refer to procedure note below. 2. Will initiate baclofen 10 mg twice a day due to myofascial spasm in the cervical region 3. Continue application of ice 4. Consider involvement in PT 5. Will reevaluate in 24 hours GREATER OCCIPITAL NERVE BLOCK and TRIGGER POINT INJECTION Diagnosis: Occipital neuralgia, myofascial pain with spasm Side injected: Left Surgeon: Merrick WYNN Prior to starting, the Patients diagnosis and the procedure were reviewed with the patient in detail. Possible risks and complications including infection, bleeding, damage to surrounding structures and increased pain were discussed. Alternative therapies were also reviewed. Patients questions were answered and they agreed to proceed. Informed consent was obtained. Allergies and medication list was reviewed. The patient was brought to the procedure room and placed in sitting position. Immediately prior to starting the procedure, a time out was conducted with the staff and the patient where the patient was identified, proposed procedure was verified, consent was reviewed and the proper site for the planned procedure was identified. Patient was not given any intravenous sedation and constant verbal contact was maintained throughout the procedure. On examination, no signs of skin breakdown or infection were noted at the injection site. The site was cleansed with ChloraPrep and alcohol. Skeletal landmarks were used to identify the greater occipital nerve on the appropriate side of injection. Using a 25-gauge, 1.5 inch needle 3-4 mL of a mixture of 0.5 % bupivacaine MPF and 40 mg of Kenalog was injected fan like fashion at the site of the greater occipital nerve after negative aspiration for blood. Then, a trigger point in the left upper cervical paravertebral musculature was injected with 1 mL of the above solution after negative aspiration for blood. No complications were noted and the patient's head/neck was cleansed. Hemostasis was maintained.
[2016-12-23 14:56] VITALS: BP 119/75; PULSE 70; TEMP 36.8; O2SAT 93
[2016-12-23 16:00] VITALS: O2SAT 93
--- NOTE | 2016-12-23 16:06 | PROGRESS NOTE ---
DATE: 12/23/2016 DATE: 12/23/2016 Juli looks great today. Pain management has seen her and has done some injections. She is still numb in the occipital scalp and in the upper neck, but she is absolutely pain free, no photophobia, sonophobia. Range of motion about the neck is normal. Imaging studies have shown no underlying structural problem and nothing that would go for an infectious process involving the brain and right now as long as this injection has helped I do not think she is going to need any long-term headache treatment. She has never had migraines before, this presented like a toxic headache and has probably changed into a secondary muscle spasm which hopefully will respond to the current injection. I think things will be clearer tomorrow morning when the numbness wears off if she stays overnight. There is some concern in family members about what might have caused this. I am not sure they are accepting my explanation of this as a secondary muscle spasm, but for now I reassured them that we find no other significant issues and her neurologic examination and imaging remain normal. Neurology is going to sign off at this point unless of course the headache does not respond and pain management thinks we need to get re-involved with her care.
--- NOTE | 2016-12-23 20:03 | Progress Note ---
Internal Med Progress Note Date of Service: Dec 23, 2016. Provider Documentation: Subjective patient receives nerve block by pain management to relieve headache and neck pain OBJECTIVE: Physical Exam: General Appearance: large body habitus female, no apparent distress Head: normocephalic, atraumatic Eyes: normal inspection, EOMI, Neck: supple, Trachea midline, some tenderness on palpation of posterior neck Respiratory/Chest: Normal breath sounds, clear to auscultation Cardiovascular: S1, S2, No murmur Abdomen/GI: Soft, Non tender, Bowel sounds present Extremities:normal inspection, bilateral lower extremity swelling Neurologic/Psych:AAOX3, grossly no focal neurological deficits Skin: normal color, warm ASSESSMENT & PLAN: 56 year F who presented with nausea, vomiting, diarrhea with imaging significant for hepatic steatosis and splenomegaly and also has thrombocytopenia SATHYA: resolved Abnormal UA: likely contaminant URINE CULTURE Final 12/21/16-1106 MORE THAN THREE TYPES OF ORGANISMS PRESENT, ALL HIGH COUNTS MIXED PROBABLE SKIN PETER Splenomegaly Abdominal CT 1. Within limitations of noncontrast technique, no acute intra-abdominal pathology. 2. Moderately enlarged spleen measuring over 19 cm in maximal sagittal dimension. This could be reactive in the presence of a recent or ongoing viral infection, secondary to sarcoidosis, or a lymphoproliferative disorder among other etiologies. 3. Mosaic attenuation at the lung bases suggest small airways disease Thrombocytopenia Chronic thrombocytopenia (noted on 05/2015 outpatient blood work) Platelets: 81K to 62 K to 59K to 76K to 83K Heme Onc consulted "Splenomegaly is most likely the cause of thrombocytopenia" Normocytic Anemia Hgb 13.5, 11.4, 11.5, 11.6, 11.9 Headache: Persistent intermittent headaches, thus far with negative workup: CT Head: no acute pathology, Brain MRI head: No acute intracranial abnormality minimal suspicion for infectious process such as meningitis due to unremarkable clinical findings, normal vitals, and no leukocytosis neurology recommended pain management to evaluate s/p occipital nerve block and inductor tester point injection in the left paravertebral cervical musculature on 12/23/2016 for Left-sided occipital headache-possible occipital neuralgia and Myofascial pain with spasm-cervical Baclofen 10 mg twice a day due to myofascial spasm in the cervical region DM II: on oral medications at home well controlled as of recent outpx HgA1c. ISS, monitor Chronic Lymphedema vs Venous Stasis: Lower Evtremity Ultrasound: There is no sonographic evidence of deep venous thrombosis identified in the right or left lower extremity DVT px SCDs RE thrombocytopenia Code Status: Full code. Disposition: discharge home tomorrow after evaluation by pain management, patient has been having increased platelets, splenomegaly without acute findings that requires surgical evaluation at this time, likely will need outpatient monitoring of platelets and spleen and liver Patient's PMD is Internal Medicine [facility] Jenaro Rollins MD Vital Signs: Date Time Temp Pulse Resp B/P (MAP) Pulse Ox O2 Delivery O2 Flow Rate FiO2 12/23/16 16:00 93 Room Air 12/23/16 14:56 36.8 70 18 119/75 (90) 93 Room Air 12/23/16 08:02 37.0 69 20 151/91 (111) 93 Room Air 12/23/16 08:00 96 Room Air 12/23/16 01:08 Room Air 12/22/16 23:51 68 16 96 Room Air 12/22/16 23:05 36.7 79 18 105/64 (78) 96 Room Air Lab Results: Results Past 24 Hours Test 12/23/16 07:12 12/23/16 07:32 12/23/16 11:11 12/23/16 16:09 Range/Units Bedside Glucose 128 206 127 70-90 mg/dl White Blood Count 4.96 4.8-10.8 K/uL Red Blood Count 3.85 4.2-5.4 M/uL Hemoglobin 11.9 12.0-16.0 g/dL Hematocrit 34.9 37-47 % Mean Corpuscular Volume 90.6 80-100 fL Mean Corpuscular Hemoglobin 30.9 25-34 pg Mean Corpuscular Hemoglobin Concent 34.1 32-36 g/dl Platelet Count 83 130-400 K/uL Mean Platelet Volume 9.1 7.4-10.4 fL Neutrophils (%) (Auto) 63.9 % Lymphocytes (%) (Auto) 23.8 % Monocytes (%) (Auto) 6.7 % Eosinophils (%) (Auto) 5.0 % Basophils (%) (Auto) 0.4 % Neutrophils # (Auto) 3.17 1.4-6.5 K/uL Lymphocytes # (Auto) 1.18 1.2-3.4 K/uL Monocytes # (Auto) 0.33 0.11-0.59 K/uL Eosinophils # (Auto) 0.25 0-0.5 K/uL Basophils # (Auto) 0.02 0-0.2 K/uL RDW Standard Deviation 47.0 36.4-46.3 fL RDW Coefficient of Variation 14.3 11.5-14.5 % Immature Granulocyte % (Auto) 0.2 % Immature Granulocyte # (Auto) 0.01 0.00-0.02 K/uL Sodium Level 138 136-145 mmol/L Potassium Level 3.7 3.5-5.1 mmol/L Chloride Level 101 98-107 mmol/L Carbon Dioxide Level 31 21-32 mmol/L Anion Gap 6.0 3-11 mmol/L Blood Urea Nitrogen 12 7-18 mg/dl Creatinine 0.97 0.60-1.20 mg/dl Est Creatinine Clear Calc Drug Dose 86.7 ml/min Estimated GFR () 74.6 Estimated GFR (Non- 64.4 BUN/Creatinine Ratio 12.7 10-20 Random Glucose 126 70-99 mg/dl Calcium Level 9.1 8.5-10.1 mg/dl
[2016-12-23] MEDS: BACLOFEN 10 MG TAB PO SCH (21:00)
[2016-12-24 00:18] VITALS: BP_SYST 132; BP_SYST 157; BP_DIAS 76; BP_DIAS 96; PULSE 69; PULSE 75; TEMP 36.7; O2SAT 94; O2SAT 95
[2016-12-24 07:08] LABS: HEMATOCRIT 36.2 % (37-47); MEAN CELL VOLUME 90.3 fL (80-100); MEAN CORPUSCULAR HEMOGLOBIN 30.7 pg (25-34); RED BLOOD COUNT 4.01 M/uL (4.2-5.4); WHITE BLOOD COUNT 6.74 K/uL (4.8-10.8)
[2016-12-24 07:13] LABS: MEAN PLATELET VOLUME 8.8 fL (7.4-10.4); PLATELET COUNT 89 K/uL (130-400)
[2016-12-24 07:48] LABS: BUN/CREATININE RATIO 13.4 (10-20); POTASSIUM 3.8 mmol/L (3.5-5.1)
[2016-12-24 07:51] LABS: ALB/GLOB RATIO 0.6 (0.9-2)
[2016-12-24 08:00] VITALS: O2SAT 99
[2016-12-24 08:02] LABS: BASO % 0.1 %; BASO ABS # 0.01 K/uL (0-0.2); COMPLETE YES; IG% 0.3 %; LYMPH % 22.4 %; LYMPH ABS # 1.51 K/uL (1.2-3.4); MONO % 5.5 %; NEUT % 67.7 %
[2016-12-24 08:09] VITALS: BP 125/77; PULSE 61; TEMP 36.5; O2SAT 99
[2016-12-24] MEDS: INSULIN ASPART 100 UNITS/ML 3 ML PEN SC SCH ×2 (08:15→11:00)
[2016-12-24] MEDS: BACLOFEN 10 MG TAB PO SCH (09:08)
[2016-12-24 14:33] VITALS: BP 125/77; PULSE 61; TEMP 36.5; O2SAT 99
--- NOTE | 2016-12-24 14:43 | Progress Note ---
Internal Med Progress Note Date of Service: Dec 24, 2016. Provider Documentation: Subjective patient's headache has improved after pain management never blocks yesterday. had IVs taken out with some bruising at the site of right arm. patient denies pain of fevers. OBJECTIVE: Physical Exam: General Appearance: large body habitus female, no apparent distress Head: normocephalic, atraumatic Eyes: normal inspection, EOMI, Neck: supple, Trachea midline, some tenderness on palpation of posterior neck Respiratory/Chest: Normal breath sounds, clear to auscultation Cardiovascular: S1, S2, No murmur Abdomen/GI: Soft, Non tender, Bowel sounds present Extremities: had IVs taken out with some bruising at the site of right arm, is nontender on palpation, not erythematous Neurologic/Psych:AAOX3, grossly no focal neurological deficits Skin: normal color, warm ASSESSMENT & PLAN: 56 year F who presented with nausea, vomiting, diarrhea with imaging significant for hepatic steatosis and splenomegaly and also has thrombocytopenia. Also with history of headache/pressure sensation to head/neck pain with negative workup up with CT scan for stroke and negative MRI for tumor or dilated ventricles and negative cervical spine imaging for fracture or sublaxation. Patient's pain of head and neck relieved after occipital nerve block and administrative fellow point injection in the left paravertebral cervical musculature on 12/23/2016 by pain management service. SATHYA: resolved Abnormal UA: likely contaminant URINE CULTURE Final 12/21/16-1106 MORE THAN THREE TYPES OF ORGANISMS PRESENT, ALL HIGH COUNTS MIXED PROBABLE SKIN PETER Splenomegaly Abdominal CT 1. Within limitations of noncontrast technique, no acute intra-abdominal pathology. 2. Moderately enlarged spleen measuring over 19 cm in maximal sagittal dimension. This could be reactive in the presence of a recent or ongoing viral infection, secondary to sarcoidosis, or a lymphoproliferative disorder among other etiologies. 3. Mosaic attenuation at the lung bases suggest small airways disease Thrombocytopenia Chronic thrombocytopenia (noted on 05/2015 outpatient blood work) Platelets: 81K to 62 K to 59K to 76K to 83K to 89K Heme Onc consulted "Splenomegaly is most likely the cause of thrombocytopenia" had IVs taken out with some bruising at the site of right arm, likely due to thrombocytopenia, however will give oral antibiotics in case this is cellulitis Normocytic Anemia Hgb 13.5, 11.4, 11.5, 11.6, 11.9, 12 .3 Headache: Persistent intermittent headaches, thus far with negative workup: CT Head: no acute pathology, Brain MRI head: No acute intracranial abnormality minimal suspicion for infectious process such as meningitis due to unremarkable clinical findings, normal vitals, and no leukocytosis neurology recommended pain management to evaluate s/p occipital nerve block and administrative fellow point injection in the left paravertebral cervical musculature on 12/23/2016 for Left-sided occipital headache-possible occipital neuralgia and Myofascial pain with spasm-cervical Baclofen 10 mg twice a day due to myofascial spasm in the cervical region DM II: on oral medications at home Chronic Lymphedema vs Venous Stasis: Lower Extremity Ultrasound: There is no sonographic evidence of deep venous thrombosis identified in the right or left lower extremity DVT px SCDs RE thrombocytopenia Code Status: Full code. Disposition: Patient's PMD is Internal Medicine [place] Jenaro Rollins MD, appointment 12/27/16Tuesday at 2:45 PM Patient requesting to follow up with [facility] neurology ([phone] ) as outpatient, can obtain referral from primary medical doctor Patient also has follow up information to Pain Management clinic with Dr. Jules Vital Signs: Date Time Temp Pulse Resp B/P (MAP) Pulse Ox O2 Delivery O2 Flow Rate FiO2 12/24/16 14:33 36.5 61 20 99 Room Air 12/24/16 08:09 36.5 61 20 125/77 (93) 99 Room Air 12/24/16 08:00 99 Room Air 12/24/16 00:18 36.7 69 18 132/76 (94) 94 Nasal Cannula 2.0 12/24/16 00:00 Room Air 12/23/16 16:00 93 Room Air 12/23/16 14:56 36.8 70 18 119/75 (90) 93 Room Air Lab Results: Results Past 24 Hours Test 12/23/16 16:09 12/23/16 20:17 12/24/16 06:50 12/24/16 07:37 Range/Units Bedside Glucose 127 162 138 70-90 mg/dl White Blood Count 6.74 4.8-10.8 K/uL Red Blood Count 4.01 4.2-5.4 M/uL Hemoglobin 12.3 12.0-16.0 g/dL Hematocrit 36.2 37-47 % Mean Corpuscular Volume 90.3 80-100 fL Mean Corpuscular Hemoglobin 30.7 25-34 pg Mean Corpuscular Hemoglobin Concent 34.0 32-36 g/dl Platelet Count 89 130-400 K/uL Mean Platelet Volume 8.8 7.4-10.4 fL Neutrophils (%) (Auto) 67.7 % Lymphocytes (%) (Auto) 22.4 % Monocytes (%) (Auto) 5.5 % Eosinophils (%) (Auto) 4.0 % Basophils (%) (Auto) 0.1 % Neutrophils # (Auto) 4.56 1.4-6.5 K/uL Lymphocytes # (Auto) 1.51 1.2-3.4 K/uL Monocytes # (Auto) 0.37 0.11-0.59 K/uL Eosinophils # (Auto) 0.27 0-0.5 K/uL Basophils # (Auto) 0.01 0-0.2 K/uL RDW Standard Deviation 46.5 36.4-46.3 fL RDW Coefficient of Variation 14.1 11.5-14.5 % Immature Granulocyte % (Auto) 0.3 % Immature Granulocyte # (Auto) 0.02 0.00-0.02 K/uL Sodium Level 139 136-145 mmol/L Potassium Level 3.8 3.5-5.1 mmol/L Chloride Level 104 98-107 mmol/L Carbon Dioxide Level 28 21-32 mmol/L Anion Gap 7.0 3-11 mmol/L Blood Urea Nitrogen 13 7-18 mg/dl Creatinine 1.00 0.60-1.20 mg/dl Est Creatinine Clear Calc Drug Dose 84.1 ml/min Estimated GFR () 71.9 Estimated GFR (Non- 62.1 BUN/Creatinine Ratio 13.4 10-20 Random Glucose 125 70-99 mg/dl Calcium Level 9.0 8.5-10.1 mg/dl Total Bilirubin 1.0 0.2-1 mg/dl Aspartate Amino Transf (AST/SGOT) 43 15-37 U/L Alanine Aminotransferase (ALT/SGPT) 28 12-78 U/L Alkaline Phosphatase 104 45-117 U/L Total Protein 7.6 6.4-8.2 gm/dl Albumin 2.9 3.4-5.0 gm/dl Globulin 4.7 2.5-4.0 gm/dl Albumin/Globulin Ratio 0.6 0.9-2 Test 12/24/16 11:06 Range/Units Bedside Glucose 160 70-90 mg/dl
[2016-12-24] MEDS ORDERED: LRS10 PO (14:58)
[2016-12-24] MEDS ORDERED: CLC150 OR (15:02)
--- NOTE | 2016-12-24 15:06 | Discharge Instructions ---
Discharge Instructions Date of Service Dec 24, 2016. Admission Reason for Admission: Sepsis Discharge Discharge Diagnosis / Problem: thrombocytopenia, anemia, splenomegaly, headache , cellulitis Discharge Goals Goal(s): Improve function Activity Recommendations Activity Limitations: resume your previous activity Driving or Machine Use: no limitations . Instructions / Follow-Up Instructions / Follow-Up Disposition: Patient's PMD is Internal Medicine [facility] Jenaro Rollins MD, appointment 12/27/16Tuesday at 2:45 PM Patient requesting to follow up with [facility] neurology ([phone] ) as outpatient, can obtain referral from primary medical doctor Patient also has follow up information to Pain Management clinic with Dr. Jules Please monitor for bruising of right arm, return to immediate medical attention if fever, vomiting, abdominal pain, severe headache, confusion, severe neck pain Current Hospital Diet Patient's current hospital diet: Diabetes Type 2 Diet, Low Lactose Diet Discharge Diet Recommended Diet: Diabetes Type 2 Diet Pending Studies Studies pending at discharge: no Medical Emergencies . Who to Call and When: Medical Emergencies: If at any time you feel your situation is an emergency, please call 911 immediately. . Non-Emergent Contact Non-Emergency issues call your: Primary Care Provider . . "Provider Documentation" section prepared by Stefan Nickerson. . VTE Core Measure Inpt VTE Proph given/why not?: SCD's
--- NOTE | 2016-12-24 15:12 | Discharge Summary ---
Discharge Summary Date of Service Dec 24, 2016. Discharge Summary Admission Date: Dec 19, 2016 at 22:01 Discharge Date: Dec 24, 2016 Discharge Disposition: Home Principal Diagnosis: splenomegaly, thrombocytopenia, anemia, headache/neck pain, cellulitis Procedures: occipital nerve block and building rigger point injection in the left paravertebral cervical musculature Medication Reconciliation New Medications: Clindamycin HCl (Clindamycin HCl) 150 Mg Cap 300 MG OR QID for 7 Days, #56 TAB Baclofen (Baclofen) 10 Mg Tab 10 MG PO BID for 30 Days, #60 TAB Continued Medications: Metformin Hcl (Glucophage) 500 Mg Tab 1000 MG PO BID, TAB Admission Information HPI (per Admitting provider): CHIEF COMPLAINT: Abdominal pain. HISTORY OF PRESENT ILLNESS: History obtained from patient and records. Medical history significant for JUAN, lymphedema, DM 2 on oral meds, hyperlipidemia, thrombocytopenia (from May 2015 blood work, patient unaware of the findings) Yesterday, the patient had a sandwich from [facility]. Shortly after she felt sick, nauseous; vomiting, loose stools, achy abdominal pain noted. Denies dysuria. Stools nonbloody. achy posterior headache sx w/ some dizziness. No recent antibiotics. No known sick contacts. Patient brought to the Emergency Room. MEDICAL HISTORY: As above. SURGERIES: She has had gynecologic procedures, cholecystectomy. HOME MEDICATIONS: Include metformin. ALLERGIES: SULFA. FAMILY HISTORY: Hypertension, cirrhosis secondary to fatty liver disease. PERSONAL SOCIAL HISTORY: Nonsmoker, no chronic intake of alcoholic beverages. Disabled. REVIEW OF SYSTEMS: As per HPI, all other ROS negative. PHYSICAL EXAMINATION: VITAL SIGNS: Blood pressure was noted to be 140/81, pulse rate 102 later 90, RR 18, temperature 37.7, sats 94% on room air. GENERAL: Noted to be obese, uncomfortable, no respiratory distress. SKIN: Normal color. HEENT: [place] palpebral conjunctivae. Dry mucosa. NECK: Short neck. LUNGS: Decreased breath sounds. HEART: RRR ABDOMEN: Some distention, no overt tenderness. EXTREMITIES: Bilateral LE edema, no tenderness NEUROLOGIC: No gross focality. LABS: Hemoglobin was noted to be 13.5, hematocrit 39.7, white cell count 12 platelets 81. Sodium 140 potassium 3.8, chloride 103, CO2 28, BUN 12, creatinine 1.3, glucose 161, procalcitonin was noted to be normal. Hemoglobin A1c from October 2016 was 7.1. UA WBC esterase, epithelial cells. IMAGING DATA: CT abdomen and pelvis. hepatic steatosis. no acute intra-abdominal pathology, moderately enlarged spleen, (viral infection versus lymphoproliferative disorder) CT head, no acute pathology. ASSESSMENT: 1. Sepsis possibly from viral gastroenteritis, food-borne illness. 2. Acute renal failure secondary to above. 3. Asymptomatic pyuria, contaminated specimen 4. Chronic thrombocytopenia (noted on 05/2015 outpatient blood work), splenomegaly on CAT scan. 5. Fatty liver on CT 6. Headache secondary to illness. 7. DM2, on oral medications, well controlled as of recent outpx HgA1c. Physical Exam (per Admitting): see above Hospital Course 56 year F who presented with nausea, vomiting, diarrhea with imaging significant for hepatic steatosis and splenomegaly and also has thrombocytopenia. Also with history of headache/pressure sensation to head/neck pain with negative workup up with CT scan for stroke and negative MRI for tumor or dilated ventricles and negative cervical spine imaging for fracture or sublaxation. Patient's pain of head and neck relieved after occipital nerve block and building rigger point injection in the left paravertebral cervical musculature on 12/23/2016 by pain management service. SATHYA: resolved Abnormal UA: likely contaminant URINE CULTURE Final 12/21/16-1106 MORE THAN THREE TYPES OF ORGANISMS PRESENT, ALL HIGH COUNTS MIXED PROBABLE SKIN PETER Splenomegaly Abdominal CT 1. Within limitations of noncontrast technique, no acute intra-abdominal pathology. 2. Moderately enlarged spleen measuring over 19 cm in maximal sagittal dimension. This could be reactive in the presence of a recent or ongoing viral infection, secondary to sarcoidosis, or a lymphoproliferative disorder among other etiologies. 3. Mosaic attenuation at the lung bases suggest small airways disease Thrombocytopenia Chronic thrombocytopenia (noted on 05/2015 outpatient blood work) Platelets: 81K to 62 K to 59K to 76K to 83K to 89K Heme Onc consulted "Splenomegaly is most likely the cause of thrombocytopenia" had IVs taken out with some bruising at the site of right arm, likely due to thrombocytopenia, however will give oral antibiotics in case this is cellulitis Normocytic Anemia Hgb 13.5, 11.4, 11.5, 11.6, 11.9, 12 .3 Headache: Persistent intermittent headaches, thus far with negative workup: CT Head: no acute pathology, Brain MRI head: No acute intracranial abnormality minimal suspicion for infectious process such as meningitis due to unremarkable clinical findings, normal vitals, and no leukocytosis neurology recommended pain management to evaluate s/p occipital nerve block and building rigger point injection in the left paravertebral cervical musculature on 12/23/2016 for Left-sided occipital headache-possible occipital neuralgia and Myofascial pain with spasm-cervical Baclofen 10 mg twice a day due to myofascial spasm in the cervical region DM II: on oral medications at home Chronic Lymphedema vs Venous Stasis: Lower Extremity Ultrasound: There is no sonographic evidence of deep venous thrombosis identified in the right or left lower extremity DVT px SCDs RE thrombocytopenia Code Status: Full code. Disposition: Patient's PMD is Internal Medicine [place] Philip A, MD, appointment 12/27/16Tuesday at 2:45 PM Patient requesting to follow up with [facility] neurology ([phone] ) as outpatient, can obtain referral from primary medical doctor Patient also has follow up information to Pain Management clinic with Dr. Jules Total time spent on discharge = This includes examination of the patient, discharge planning, medication reconciliation, and communication with other providers. Discharge Instructions Disposition: Patient's PMD is Internal Medicine [facility] Philip A, MD, appointment 12/27/16Tuesday at 2:45 PM Patient requesting to follow up with [facility] neurology ([phone] ) as outpatient, can obtain referral from primary medical doctor Patient also has follow up information to Pain Management clinic with Dr. Jules Please monitor for bruising of right arm, return to immediate medical attention if fever, vomiting, abdominal pain, severe headache, confusion, severe neck pain
--- NOTE | 2016-12-24 15:20 | PROGRESS NOTE ---
DATE: 12/24/2016 DATE: 12/24/2016 Juli is pain free now after the pain management injection yesterday. She can move her neck. There are no areas of tenderness. The numbness has dissipated and I think she is being discharged. Family was quite satisfied that the pain management team came by and explained in detail about what they thought was going on, which I think was occipital nerve impingement syndrome, possibly related to her protracted hospital stay. She certainly had what sounds like toxic headache at the onset, which is bifrontal and then as this dissipated the occipital component emerged. The issue is academic. She does not need neurologic followup, but I think pain management will see her episodically should this recur. ONEAL
--- NOTE | 2016-12-24 15:48 | Pain Management Progress Note ---
Pain Management Progress Note Date of Service Dec 24, 2016. Subjective Headache resolved. No reoccurrence after local anesthetic wore off. No new complaints. Tolerating baclofen well without any noticeable side effects. Objective Vital Signs: Last Vital Signs Documentation Date Time Temp Pulse Resp B/P (MAP) Pulse Ox O2 Delivery O2 Flow Rate FiO2 12/24/16 08:09 36.5 61 20 125/77 (93) 99 Room Air 12/24/16 00:18 2.0 Physical Exam: A/O. Normal sensorium. Injection site unremarkable. No tenderness with percussion over greater occipital nerve on the left. Laboratory Laboratory Findings 12/24/16 06:50 Red Blood Count 4.01 L, Mean Corpuscular Volume 90.3, Mean Corpuscular Hemoglobin 30.7, Mean Corpuscular Hemoglobin Concent 34.0, Mean Platelet Volume 8.8, Neutrophils (%) (Auto) 67.7, Lymphocytes (%) (Auto) 22.4, Monocytes (%) ( Auto) 5.5, Eosinophils (%) (Auto) 4.0, Basophils (%) (Auto) 0.1, Neutrophils # ( Auto) 4.56, Lymphocytes # (Auto) 1.51, Monocytes # (Auto) 0.37, Eosinophils # ( Auto) 0.27, Basophils # (Auto) 0.01 Assessment 1. Occipital neuralgia. Presently asymptomatic. 2. Myoneural trigger point left splenius capitis muscle. Recommendations 1. Recommend continue baclofen for 5 days as needed. 2. Can follow up in Pain Clinic as needed after discharge if additional blocks and RFA are required.
== END 2016-12-24 16:10 | disposition home or self-care (01) | DRG 392 ==
LOC: C.EDB 16:58 → C.MS2W 22:01 → ENRESERV 22:26
PROVIDERS: ADMIT Internal Medicine; ATTEND Hospitalist
PROC: 3E023BZ Introduction of Anesthetic Agent into Muscle, Percutaneous Approach (ICD-10-PCS; principal; 2016-12-23)
PROC: 3E0T3BZ Introduction of Anesthetic Agent into Peripheral Nerves and Plexi, Percutaneous Approach (ICD-10-PCS; principal; 2016-12-23)
PROC: 3E0233Z Introduction of Anti-inflammatory into Muscle, Percutaneous Approach (ICD-10-PCS; principal; 2016-12-23)
PROC: 3E0T33Z Introduction of Anti-inflammatory into Peripheral Nerves and Plexi, Percutaneous Approach (ICD-10-PCS; principal; 2016-12-23)
DX: A08.4 Viral intestinal infection, unspecified (principal); N17.9 Acute kidney failure, unspecified; L03.115 Cellulitis of right lower limb; Z68.42 Body mass index [BMI] 45.0-49.9, adult; A05.9 Bacterial foodborne intoxication, unspecified; R82.90 Unspecified abnormal findings in urine; D69.59 Other secondary thrombocytopenia; R16.2 Hepatomegaly with splenomegaly, not elsewhere classified; D64.9 Anemia, unspecified; M54.81 Occipital neuralgia; M79.1 Myalgia; E11.9 Type 2 diabetes mellitus without complications; I89.0 Lymphedema, not elsewhere classified; I87.8 Other specified disorders of veins; E66.01 Morbid (severe) obesity due to excess calories; G47.33 Obstructive sleep apnea (adult) (pediatric); Z79.84 Long term (current) use of oral hypoglycemic drugs; Z90.49 Acquired absence of other specified parts of digestive tract; Z88.2 Allergy status to sulfonamides; Z82.49 Family history of ischemic heart disease and other diseases of the circulatory system; Z83.79 Family history of other diseases of the digestive system

== ENCOUNTER 2017-05-21 15:50 | Emergency (ER) | payer OTHER ==
[~2017-05-21] VITALS: Ht 165.1 cm; Wt 131.1 kg
[~2017-05-21 15:50] MED LIST changes: +ASPCH81X PO; +BACL10TA PO; -GLC/500 PO; +METF1000 PO; +PRAV20TA PO
[2017-05-21 15:54] VITALS: TEMP 36.9; Ht 165.1 cm; Wt 131.1 kg
[2017-05-21] MEDS ORDERED: OXYCODONE/ACETAMINOPHEN 5-325 TAB PO ONE (16:15)
--- NOTE | 2017-05-21 16:19 | EMERGENCY ROOM VISIT NOTE ---
History Report prepared by Butch: Rosa Wong Under the Supervision of: Dr. Bertrand Shaw M.D. 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 She rates her swelling as throbbing, a 10/10 in severity, and movement is a worsening factor. She has nausea and diarrhea for the past week but denies vomiting, chills, fevers, SOB, and a cough. She states the last time her leg got this swollen was when she was at the hospital in December. 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 A total of ten systems were reviewed and were otherwise negative. Past Medical & Surgical Medical Problems: (1) Diabetes (2) Sepsis Family History Cancer FH: HTN (hypertension) FH: diabetes mellitus FH: kidney disease Gallbladder disease Heart disease Lung disease Social History Smoking Status: Never Smoker Marital Status: Housing Status: lives with significant other Occupation Status: disabled Current/Historical Medications Scheduled Cephalexin Monohydrate (Keflex), 500 MG PO TID Clindamycin Hcl (Clindamycin Hcl), 450 MG PO QID Metformin Hcl (Glucophage), 1,000 MG PO BID Omeprazole (Prilosec), 20 MG PO DAILY Pravastatin Sodium (Pravastatin Sodium), 40 MG PO DAILY Saccharomyces Boulardii (Florastor), 1 CAP PO BID Allergies Coded Allergies: Sulfa Drugs (Verified Allergy, Unknown, SWELLING, HIVES, 01/26/17) Sulfate (Verified Allergy, Unknown, SWELLING/HIVES, 01/26/17) Physical Exam Vital Signs Date Time Temp Pulse Resp B/P (MAP) Pulse Ox O2 Delivery O2 Flow Rate FiO2 05/21/17 19:50 76 18 116/61 97 05/21/17 19:23 76 18 116/61 97 Room Air 05/21/17 18:40 80 21 94 Room Air 05/21/17 17:24 85 05/21/17 17:17 98 05/21/17 17:16 83 20 135/70 98 05/21/17 15:54 36.9 90 18 163/83 99 Room Air Physical Exam GENERAL: Awake, alert, well-appearing, in no distress HENT: Normocephalic, atraumatic. Oropharynx unremarkable. EYES: Normal conjunctiva. Sclera non-icteric. NECK: Supple. No nuchal rigidity. FROM. No JVD. RESPIRATORY: Clear to auscultation. CARDIAC: Regular rate, normal rhythm. Extremities warm and well perfused. Pulses equal. ABDOMEN: Soft, non-distended. No tenderness to palpation. No rebound or guarding. No masses. RECTAL: Deferred. MUSCULOSKELETAL: Chest examination reveals no tenderness. The back is symmetrical on inspection without obvious abnormality. There is no CVA tenderness to palpation. No joint edema. LOWER EXTREMITIES: 2+ low extremity edema on the left. 3+ lower extremity edema on the right with diffuse erythema and warmth to the right lower legs, distal PMS intact NEURO: Normal sensorium. No sensory or motor deficits noted. SKIN: No rash or jaundice noted. Medical Decision & Procedures ER Provider Diagnostic Interpretation: Radiology results as stated below per my review and radiologist interpretation: R TIBIA/FIBULA 2 VIEWS ROUTINE CLINICAL HISTORY: Right leg pain and swelling. COMPARISON: None FINDINGS: Deformity of the distal right tibia and fibula suggests old, healed fractures. No acute fracture of the right tibia or fibula is identified. There is a right lower leg edema/soft tissue swelling. There is no evidence for osteomyelitis by radiography. IMPRESSION: 1. No acute osseous abnormality of the right tibia or fibula. 2. Deformity of the distal right tibia and fibula which suggests old, healed fractures. 3. Extensive posterior calcaneal spurring. 4. Right lower leg edema/soft tissue swelling. Electronically signed by: Junior Isaacs M.D. 05/21/2017 5:05 PM Dictated Date/Time: 05/21/2017 5:04 PM CHEST ONE VIEW PORTABLE CLINICAL HISTORY: Chest pain. COMPARISON STUDY: Chest radiograph December 19, 2016. FINDINGS: Lung volumes are normal. No pneumothorax or pleural effusion is noted. There is no consolidation or evidence for pulmonary edema. Mild cardiomegaly is unchanged. IMPRESSION: No acute cardiopulmonary findings. Electronically signed by: Junior Isaacs M.D. 05/21/2017 5:04 PM Dictated Date/Time: 05/21/2017 5:03 PM RIGHT LOWER EXTREMITY VENOUS DOPPLER CLINICAL HISTORY: Right lower extremity pain and swelling. COMPARISON STUDY: Bilateral lower extremity venous Doppler December 20, 2016. TECHNIQUE: Sonography of the deep venous system of the right lower extremity was performed. Compression and augmentation were evaluated. FINDINGS: The right common femoral, superficial femoral and popliteal veins were compressible. Augmentation was normal. Flow was shown within the deep calf vessels. IMPRESSION: No evidence of deep venous thrombus within the right lower extremity. Electronically signed by: Junior Isaacs M.D. 05/21/2017 6:58 PM Dictated Date/Time: 05/21/2017 6:58 PM Laboratory Results 05/21/17 18:05 Red Blood Count 3.78, Mean Corpuscular Volume 91.3, Mean Corpuscular Hemoglobin 31.5, Mean Corpuscular Hemoglobin Concent 34.5, Mean Platelet Volume 8.8, Neutrophils (%) (Auto) 67.0, Lymphocytes (%) (Auto) 20.3, Monocytes (%) (Auto) 9.2, Eosinophils (%) (Auto) 2.9, Basophils (%) (Auto) 0.3, Neutrophils # (Auto) 4.88, Lymphocytes # (Auto) 1.48, Monocytes # (Auto) 0.67, Eosinophils # (Auto) 0.21, Basophils # (Auto) 0.02 05/21/17 17:26 Test 05/21/17 17:26 05/21/17 17:27 05/21/17 18:05 Anion Gap 9.0 mmol/L (3-11) Est Creatinine Clear Calc Drug Dose 72.3 ml/min Estimated GFR () 60.1 Estimated GFR (Non- 51.9 BUN/Creatinine Ratio 9.7 (10-20) Calcium Level 9.0 mg/dl (8.5-10.1) Total Bilirubin 1.2 mg/dl (0.2-1) Direct Bilirubin 0.3 mg/dl (0-0.2) Aspartate Amino Transf (AST/SGOT) 42 U/L (15-37) Alanine Aminotransferase (ALT/SGPT) 33 U/L (12-78) Alkaline Phosphatase 141 U/L (45-117) Troponin I < 0.015 ng/ml (0-0.045) Pro-B-Type Natriuretic Peptide 48 pg/ml (0-900) Total Protein 8.0 gm/dl (6.4-8.2) Albumin 3.1 gm/dl (3.4-5.0) Lipase 432 U/L (73-393) Lactic Acid Level 1.4 mmol/L (0.4-2.0) White Blood Count 7.28 K/uL (4.8-10.8) Red Blood Count 3.78 M/uL (4.2-5.4) Hemoglobin 11.9 g/dL (12.0-16.0) Hematocrit 34.5 % (37-47) Mean Corpuscular Volume 91.3 fL (80-100) Mean Corpuscular Hemoglobin 31.5 pg (25-34) Mean Corpuscular Hemoglobin Concent 34.5 g/dl (32-36) Platelet Count 77 K/uL (130-400) Mean Platelet Volume 8.8 fL (7.4-10.4) Neutrophils (%) (Auto) 67.0 % Lymphocytes (%) (Auto) 20.3 % Monocytes (%) (Auto) 9.2 % Eosinophils (%) (Auto) 2.9 % Basophils (%) (Auto) 0.3 % Neutrophils # (Auto) 4.88 K/uL (1.4-6.5) Lymphocytes # (Auto) 1.48 K/uL (1.2-3.4) Monocytes # (Auto) 0.67 K/uL (0.11-0.59) Eosinophils # (Auto) 0.21 K/uL (0-0.5) Basophils # (Auto) 0.02 K/uL (0-0.2) RDW Standard Deviation 49.9 fL (36.4-46.3) RDW Coefficient of Variation 14.9 % (11.5-14.5) Immature Granulocyte % (Auto) 0.3 % Immature Granulocyte # (Auto) 0.02 K/uL (0.00-0.02) Platelet Estimate DECREASED Laboratory results reviewed by me Medications Administered Medications (Trade) Dose Ordered Sig/Manuela Route Start Time Stop Time Status Last Admin Dose Admin Oxycodone/ Acetaminophen (Percocet 5-325mg Tab) 1 tab NOW ONCE PO 05/21/17 16:15 05/21/17 16:19 DC 2/17/18 17:23 1 TAB Clindamycin Phosphate (Cleocin 600mg/ 54ml D5W) 600 mg ONE STAT IV 05/21/17 19:04 05/21/17 19:06 DC 05/21/17 19:20 600 MG ED Course 1612: The patient was evaluated in room A9. A complete history and physical exam was performed. 1939: I reevaluated the patient. Discussed results and discharge instructions: She verbalized understanding and agreement. The patient is ready for discharge. Medical Decision I reviewed the patient's past medical history, medications, and the nursing notes as described above. Differential diagnosis: Etiologies such as cellulitis, fracture, dislocation, DVT, arterial insufficiency, cellulitis, necrotizing infection, rhabdomyolysis, sepsis, as well as others were entertained. The patient is a 56 y/o woman with a pmhx of NIDDM2, chronic BLE edema and recurrent cellulitis presents to the emergency department with worsening RLE pain and swelling per HPI. On arrival the patient is in NAD, AFVSS. On exam the patient has 3+ LLE erythema and warmth. Duplex negative for DVT. Labs unremarkable with WBC and lactate wnl. Platelets at baseline. Xray negative for osseous involvement. Given reassuring lab results and patient AF, reasonable to manage outpatient at this time. Will treat with clindamycin given patient's DM. Given first dose as IV. Findings and plan for follow-up reviewed with patient. Patient agreeable and d/c'd per discharge instructions. Medication Reconcilliation Current Medication List: was personally reviewed by me Blood Pressure Screening Patient's blood pressure: Elevated blood pressure Blood pressure disposition: Elevated BP felt to be situational Impression Primary Impression: Cellulitis, leg Scribe Attestation The scribe's documentation has been prepared under my direction and personally reviewed by me in its entirety. I confirm that the note above accurately reflects all work, treatment, procedures, and medical decision making performed by me. Departure Information Dispostion Home / Self-Care Prescriptions Saccharomyces Boulardii (Florastor) 250 Mg Cap 1 CAP PO BID for 14 Days, #28 CAP Prov: Bertrand Shaw M.D. 05/21/17 Clindamycin Hcl (CLINDAMYCIN HCL) 150 Mg Cap 450 MG PO QID for 14 Days, #168 CAP Prov: Bertrand Shaw M.D. 05/21/17 Referrals Jenaro Rollins M.D. (PCP) Patient Instructions ED Infec Skin Cellulitis, My [facility] Additional Instructions Please follow up with your primary care physician in the next 1-3 days for re- evaluation. You have a skin infection of your leg. Otherwise, your exam, lab results, xrays, and ultrasound did not show signs of an emergent condition at this time. Acetaminophen for pain and fevers as needed. Clindamycin as directed. Return to the emergency department for worsening symptoms as described in the accompanying instructions.
[2017-05-21] MEDS ORDERED: PRAV40TA2 PO (16:52)
[2017-05-21] MEDS ORDERED: CEPH500C2 PO (16:52)
[2017-05-21] MEDS ORDERED: METF-384 PO (16:52)
[2017-05-21] MEDS ORDERED: PRLSR20 PO (16:53)
--- NOTE | 2017-05-21 17:05 | DIAGNOSTIC IMAGING REPORT ---
CHEST ONE VIEW PORTABLE CLINICAL HISTORY: Chest pain. COMPARISON STUDY: Chest radiograph December 19, 2016. FINDINGS: Lung volumes are normal. No pneumothorax or pleural effusion is noted. There is no consolidation or evidence for pulmonary edema. Mild cardiomegaly is unchanged. IMPRESSION: No acute cardiopulmonary findings. Electronically signed by: Junior Isaacs M.D. 05/21/2017 5:04 PM Dictated Date/Time: 05/21/2017 5:03 PM
--- NOTE | 2017-05-21 17:06 | DIAGNOSTIC IMAGING REPORT ---
R TIBIA/FIBULA 2 VIEWS ROUTINE CLINICAL HISTORY: Right leg pain and swelling. COMPARISON: None FINDINGS: Deformity of the distal right tibia and fibula suggests old, healed fractures. No acute fracture of the right tibia or fibula is identified. There is a right lower leg edema/soft tissue swelling. There is no evidence for osteomyelitis by radiography. IMPRESSION: 1. No acute osseous abnormality of the right tibia or fibula. 2. Deformity of the distal right tibia and fibula which suggests old, healed fractures. 3. Extensive posterior calcaneal spurring. 4. Right lower leg edema/soft tissue swelling. Electronically signed by: Junior Isaacs M.D. 05/21/2017 5:05 PM Dictated Date/Time: 05/21/2017 5:04 PM
[2017-05-21 17:17] VITALS: O2SAT 98
[2017-05-21 17:55] LABS: ALBUMIN 3.1 gm/dl (3.4-5.0); ALT/SGPT 33 U/L (12-78); BLOOD UREA NITROGEN 11 mg/dl (7-18); CARBON DIOXIDE 27 mmol/L (21-32); CREATININE 1.16 mg/dl (0.60-1.20); GLUCOSE 125 mg/dl (70-99); LIPASE 432 U/L (73-393); POTASSIUM 3.8 mmol/L (3.5-5.1); SODIUM 139 mmol/L (136-145)
[2017-05-21 18:01] LABS: ALKALINE PHOSPHATASE 141 U/L (45-117); AST/SGOT 42 U/L (15-37)
[2017-05-21 18:48] LABS: BASO % 0.3 %; BASO ABS # 0.02 K/uL (0-0.2); EOS % 2.9 %; EOS ABS # 0.21 K/uL (0-0.5); HEMATOCRIT 34.5 % (37-47); HEMOGLOBIN 11.9 g/dL (12.0-16.0); IG# 0.02 K/uL (0.00-0.02); LYMPH % 20.3 %; LYMPH ABS # 1.48 K/uL (1.2-3.4); MEAN CELL VOLUME 91.3 fL (80-100); MEAN CORPUSCULAR HEMOGLOBIN 31.5 pg (25-34); MEAN CORPUSCULAR HGB CONC 34.5 g/dl (32-36); MEAN PLATELET VOLUME 8.8 fL (7.4-10.4); MONO % 9.2 %; MONO ABS # 0.67 K/uL (0.11-0.59); NEUT ABS # 4.88 K/uL (1.4-6.5); PLATELET COUNT 77 K/uL (130-400); RED CELL DISTRIBUTION WIDTH CV 14.9 % (11.5-14.5); RED CELL DISTRIBUTION WIDTH SD 49.9 fL (36.4-46.3); WHITE BLOOD COUNT 7.28 K/uL (4.8-10.8)
--- NOTE | 2017-05-21 18:59 | DIAGNOSTIC IMAGING REPORT ---
RIGHT LOWER EXTREMITY VENOUS DOPPLER CLINICAL HISTORY: Right lower extremity pain and swelling. COMPARISON STUDY: Bilateral lower extremity venous Doppler December 20, 2016. TECHNIQUE: Sonography of the deep venous system of the right lower extremity was performed. Compression and augmentation were evaluated. FINDINGS: The right common femoral, superficial femoral and popliteal veins were compressible. Augmentation was normal. Flow was shown within the deep calf vessels. IMPRESSION: No evidence of deep venous thrombus within the right lower extremity. Electronically signed by: Junior Isaacs M.D. 05/21/2017 6:58 PM Dictated Date/Time: 05/21/2017 6:58 PM
[2017-05-21] MEDS ORDERED: CLINDAMYCIN 600 MG/54 ML D5W IV STA (19:04)
[2017-05-21] MEDS ORDERED: CLIN150C15 PO (19:41)
[2017-05-21] MEDS ORDERED: SACC250C3 PO (19:41)
[2017-05-21 19:50] VITALS: BP 116/61; PULSE 76; O2SAT 97
== END 2017-05-21 19:52 | disposition home or self-care (01) ==
LOC: C.EDB 15:51 → C.EDA 19:52
DX: L03.115 Cellulitis of right lower limb (principal); E11.9 Type 2 diabetes mellitus without complications; Z79.84 Long term (current) use of oral hypoglycemic drugs; Z88.2 Allergy status to sulfonamides; Z80.9 Family history of malignant neoplasm, unspecified; Z82.49 Family history of ischemic heart disease and other diseases of the circulatory system; Z83.3 Family history of diabetes mellitus; Z84.1 Family history of disorders of kidney and ureter; Z83.79 Family history of other diseases of the digestive system

== ENCOUNTER 2017-05-29 09:09 | Emergency (ER) | payer OTHER ==
[~2017-05-29] VITALS: Ht 165.1 cm; Wt 130.0 kg
[~2017-05-29 09:09] MED LIST changes: -ASPCH81X PO; -BACL10TA PO; +CEPH500C2 PO; +CLIN150C15 PO; +METF-384 PO; -METF1000 PO; -PRAV20TA PO; +PRAV40TA2 PO; +PRLSR20 PO; +SACC250C3 PO
[2017-05-29 09:13] VITALS: Ht 165.1 cm; Wt 130.0 kg
[2017-05-29] MEDS ORDERED: METHYLPREDNISOLONE 125 MG VIAL IV STA (09:40)
[2017-05-29 09:57] LABS: HEMATOCRIT 35.5 % (37-47); HEMOGLOBIN 12.4 g/dL (12.0-16.0); MEAN CELL VOLUME 89.9 fL (80-100); MEAN CORPUSCULAR HEMOGLOBIN 31.4 pg (25-34); MEAN CORPUSCULAR HGB CONC 34.9 g/dl (32-36); RED CELL DISTRIBUTION WIDTH CV 14.7 % (11.5-14.5); RED CELL DISTRIBUTION WIDTH SD 48.4 fL (36.4-46.3); WHITE BLOOD COUNT 6.13 K/uL (4.8-10.8)
[2017-05-29 10:15] LABS: ALBUMIN 3.1 gm/dl (3.4-5.0); CALCIUM 9.3 mg/dl (8.5-10.1); CREATININE 0.99 mg/dl (0.60-1.20); POTASSIUM 3.8 mmol/L (3.5-5.1)
[2017-05-29 10:18] LABS: MEAN PLATELET VOLUME 8.7 fL (7.4-10.4); PLATELET COUNT 89 K/uL (130-400); TOTAL PROTEIN 7.6 gm/dl (6.4-8.2)
[2017-05-29 10:19] LABS: BASO % 0.2 %; BASO ABS # 0.01 K/uL (0-0.2); EOS % 3.8 %; EOS ABS # 0.23 K/uL (0-0.5); IG# 0.01 K/uL (0.00-0.02); LYMPH % 17.5 %; LYMPH ABS # 1.07 K/uL (1.2-3.4); MONO % 5.2 %; MONO ABS # 0.32 K/uL (0.11-0.59); NEUT % 73.1 %; NEUT ABS # 4.49 K/uL (1.4-6.5)
[2017-05-29] MEDS ORDERED: CLIN1CAP51 PO (10:32)
[2017-05-29] MEDS ORDERED: PRED50TA PO (10:52)
[2017-05-29 11:14] VITALS: BP 131/84; PULSE 75; TEMP 36.5; O2SAT 99
--- NOTE | 2017-05-29 16:43 | EMERGENCY ROOM VISIT NOTE ---
History Report prepared by Butch: Jay Tellez Under the Supervision of: Dr. Teddy Wilson M.D. First contact with patient: 09:33 Chief Complaint: ALLERGIC REACTION Stated Complaint: BREAKING OUT, POSSIBLE ALLERGIC RXN TO MEDICATION Nursing Triage Summary: Pt states she took her temp this morning and it was 100.1. Didn't take anything. Itchy everywhere. Rash all over my body. Last Tuesday was prescribed a probiotic and clindamycin for cellulitis in right leg. History of Present Illness The patient is a 56 year old female who presents to the Emergency Room with complaints of worsening itching around her neck that started 24 hours ago. She states that she woke up this morning with itch that spread to her arms. She denies taking any Benadryl for her itch. The patient reports that she is currently taking Clindamycin for cellulitis when she was admitted 1 week ago. She reports diarrhea and low grade fevers. She denies shortness of breath, abdominal pain, cough, flu like symptoms, nausea, and vomiting. Source of History: patient Onset: 1 day ago Position: neck, arm Timing: worsening Associated Symptoms: + fevers (low grade), + diarrhea, + rash, No cough, No SOB, No nausea, No vomiting, No abdominal pain Review of Systems See HPI for pertinent positives & negatives. A total of 10 systems reviewed and were otherwise negative. Past Medical & Surgical Medical Problems: (1) Diabetes (2) Sepsis Old medical records were reviewed. Nurse's notes were reviewed and I agree with. Family History Cancer FH: HTN (hypertension) FH: diabetes mellitus FH: kidney disease Gallbladder disease Heart disease Lung disease Social History Smoking Status: Never Smoker Marital Status: Housing Status: lives with significant other Occupation Status: disabled Current/Historical Medications Scheduled Clindamycin HCl (Clindamycin HCl), 600 MG PO DAILY Metformin Hcl (Glucophage), 1,000 MG PO BID Omeprazole (Prilosec), 20 MG PO DAILY Pravastatin Sodium (Pravastatin Sodium), 40 MG PO DAILY Prednisone (Prednisone), 50 MG PO DAILY Saccharomyces Boulardii (Florastor), 1 CAP PO BID Allergies Coded Allergies: Sulfa Drugs (Verified Allergy, Unknown, SWELLING, HIVES, 05/29/17) Sulfate (Verified Allergy, Unknown, SWELLING/HIVES, 05/29/17) Physical Exam Vital Signs Date Time Temp Pulse Resp B/P (MAP) Pulse Ox O2 Delivery O2 Flow Rate FiO2 05/29/17 11:14 36.5 75 16 131/84 99 05/29/17 09:56 75 16 131/84 98 Room Air 05/29/17 09:18 99 Room Air 05/29/17 09:13 36.5 83 19 154/80 97 Room Air Physical Exam General: Non-ill appearing middle aged female in no acute distress. Speaking and swallowing without difficulties. HEENT: Normal cephalic atraumatic. Pupils are equal round and reactive to light. Extraocular movements are intact. Oropharynx is pink with moist mucous membranes. No swelling of the mouth lips or tongue. Neck: Supple with a midline trachea. No meningeal signs or stiffness, no JVD or bruits. No Stridor. Chest: Clear to auscultation bilaterally. No wheezes or rhonchi. No increased work of breathing. Heart: regular rate and rhythm. Abdomen: Soft nontender, nondistended without rebound guarding or rigidity. Extremities: No cyanosis clubbing or edema. No calf tenderness or assymetry Spine/Back. Non tender to palpation. No CVA tenderness Skin: Good turgor. Diffuse red circular small blanching rash. No involvement of mucous membranes. Neurologic exam: Cranial nerves two through 12 are intact. Motor and sensation are intact and symmetrical throughout. Medical Decision & Procedures Laboratory Results 05/29/17 09:50 Red Blood Count 3.95, Mean Corpuscular Volume 89.9, Mean Corpuscular Hemoglobin 31.4, Mean Corpuscular Hemoglobin Concent 34.9, Mean Platelet Volume 8.7, Neutrophils (%) (Auto) 73.1, Lymphocytes (%) (Auto) 17.5, Monocytes (%) (Auto) 5.2, Eosinophils (%) (Auto) 3.8, Basophils (%) (Auto) 0.2, Neutrophils # (Auto) 4.49, Lymphocytes # (Auto) 1.07, Monocytes # (Auto) 0.32, Eosinophils # (Auto) 0.23, Basophils # (Auto) 0.01 05/29/17 09:50 Test 05/29/17 09:50 White Blood Count 6.13 K/uL (4.8-10.8) Red Blood Count 3.95 M/uL (4.2-5.4) Hemoglobin 12.4 g/dL (12.0-16.0) Hematocrit 35.5 % (37-47) Mean Corpuscular Volume 89.9 fL (80-100) Mean Corpuscular Hemoglobin 31.4 pg (25-34) Mean Corpuscular Hemoglobin Concent 34.9 g/dl (32-36) Platelet Count 89 K/uL (130-400) Mean Platelet Volume 8.7 fL (7.4-10.4) Neutrophils (%) (Auto) 73.1 % Lymphocytes (%) (Auto) 17.5 % Monocytes (%) (Auto) 5.2 % Eosinophils (%) (Auto) 3.8 % Basophils (%) (Auto) 0.2 % Neutrophils # (Auto) 4.49 K/uL (1.4-6.5) Lymphocytes # (Auto) 1.07 K/uL (1.2-3.4) Monocytes # (Auto) 0.32 K/uL (0.11-0.59) Eosinophils # (Auto) 0.23 K/uL (0-0.5) Basophils # (Auto) 0.01 K/uL (0-0.2) RDW Standard Deviation 48.4 fL (36.4-46.3) RDW Coefficient of Variation 14.7 % (11.5-14.5) Immature Granulocyte % (Auto) 0.2 % Immature Granulocyte # (Auto) 0.01 K/uL (0.00-0.02) Anion Gap 8.0 mmol/L (3-11) Est Creatinine Clear Calc Drug Dose 84.3 ml/min Estimated GFR () 72.8 Estimated GFR (Non- 62.8 BUN/Creatinine Ratio 10.8 (10-20) Calcium Level 9.3 mg/dl (8.5-10.1) Total Bilirubin 1.1 mg/dl (0.2-1) Direct Bilirubin 0.3 mg/dl (0-0.2) Aspartate Amino Transf (AST/SGOT) 34 U/L (15-37) Alanine Aminotransferase (ALT/SGPT) 27 U/L (12-78) Alkaline Phosphatase 117 U/L (45-117) Total Protein 7.6 gm/dl (6.4-8.2) Albumin 3.1 gm/dl (3.4-5.0) Lipase 188 U/L (73-393) Laboratory studies as stated above per my review. Medications Administered Medications (Trade) Dose Ordered Sig/Manuela Route Start Time Stop Time Status Last Admin Dose Admin Methylprednisolone Sodium Succinate (Solu-Medrol IV) 125 mg ONE STAT IV 05/29/17 09:40 05/29/17 09:41 DC 05/29/17 09:50 125 MG ED Course 09: Past medical records reviewed. The patient was evaluated in room A3, and a complete history and physical examination were performed. 0940: Solu-Medrol IV, 125 mg, IV. 1056: Upon reevaluation, the patient is doing well. I discussed the results and treatment plan with the patient. She verbalized agreement of the treatment plan. The patient was discharged home. Medical Decision Differential diagnoses includes allergic reaction, viral illness, hematologic abnormality, infection, electrolytic and metabolic abnormality. This patient comes in as described above. She was placed in room A3. She is here for treatment and evaluation of a rash and possible allergic reaction. She is in the process of finishing up clindamycin for cellulitis. She apparently had this before her son thinks without problems. She has a fine diffuse rash. there is no involvement of mucous membranes, she has no GI symptoms. There is no evidence of airway compromise. IV access was established . she is driving and therefore cannot give her Benadryl but she did receive Solu-Medrol 125 mg IV. She was warned that this could make her blood sugars run a little high over the next couple days. She can take Benadryl when she gets home. She has a history of thrombocytopenia but her platelets were on the higher side for her at 87,000. There is no white count. No acute electrolyte or metabolic abnormalities. This may be allergic reaction to clindamycin could also be more of a viral illness. I recommended that she stop the clindamycin as the cellulitis is better and do not take this medication until she is rechecked by her doctor or an powder monkey to have further testing done. She should return the ER if: worsening of symptoms, shortness of breath, any new problems or concerns. She was happy with plan and discharged to home. Medication Reconcilliation Current Medication List: was personally reviewed by me Blood Pressure Screening Patient's blood pressure: Elevated blood pressure Blood pressure disposition: Elevated BP felt to be situational Impression Primary Impression: Rash Additional Impression: Allergic reaction Scribe Attestation The scribe's documentation has been prepared under my direction and personally reviewed by me in its entirety. I confirm that the note above accurately reflects all work, treatment, procedures, and medical decision making performed by me. Departure Information Dispostion Home / Self-Care Prescriptions Prednisone (Prednisone) 50 Mg Tab 50 MG PO DAILY, #4 TAB Prov: Teddy Wilson M.D. 05/29/17 Referrals Jenaro Rollins M.D. (PCP) Forms HOME CARE DOCUMENTATION FORM, IMPORTANT VISIT INFORMATION Patient Instructions My [facility] Additional Instructions Rest. Drink plenty of fluids. Stop the clindamycin. It is possible you are allergic to this and further discuss this with your doctor before being prescribed this medication. You may benefit from allergy testing. It is also possible that the rash could be from a viral illness or other etiology Use Benadryl 25-50 mg every 8 hours, take with food. Benadryl may make you drowsy do not take before drinking, driving, working Use prednisone 50 mg a day for the next 4 days. Follow-up with your doctor in 1-2 days for recheck. Return to the ER in the meantime if: Shortness of breath, worsening symptoms, fever or chills, difficulty speaking or swallowing, any new problems or concerns Problem Qualifiers
== END 2017-05-29 11:16 | disposition home or self-care (01) ==
LOC: C.EDB 09:10 → C.EDA 11:16
DX: T36.95XA Adverse effect of unspecified systemic antibiotic, initial encounter (principal); R21 Rash and other nonspecific skin eruption; X58.XXXA Exposure to other specified factors, initial encounter; E11.9 Type 2 diabetes mellitus without complications; Z79.899 Other long term (current) drug therapy

== ENCOUNTER 2020-04-20 08:24 | Inpatient (IN) ==
--- NOTE | 2020-04-20 08:46 | Emergency Department Note ---
History of Present Illness General Chief complaint: Facial Injury/Pain Stated complaint: FOREHEAD SWOLLEN Time Seen by Provider: 04/20/20 08:35 History of Present Illness Maximum Pain Intensity: 1 This is a 59-year-old female with a history of type 2 diabetes that presents to the emergency department via private vehicle with complaints of "forehead swollen". The patient notes that this past Tuesday morning she noticed a small red dot near the hairline just above the forehead. She notes a history of rosacea and thought perhaps this was a small exacerbation. She also notes that she has had 2 family numbers this month and perhaps thought it was from stress. Then yesterday morning she noticed that the area enlarged. Then she awoke this morning and the area was much more swollen, reddened and was concerned given her diabetic state and presented here to the ED for evaluation. She notes that she has been on Keflex for the past 2.5 weeks at twice daily dosing for cellulitis of the left lower extremity. She denies any fevers, chills, nausea or vomiting. Glucose this morning was just above 200. Patient denies any new hair products or diet but does note that on April 08 while preparing for her ex-'s she does note that she had her haircut and there was a gel/mousse used but she rinsed this out shortly after it was placed. She notes a hx of MRSA. Patient denies any ocular involvement or trouble with vision. Home Medications Medication Instructions Recorded Confirmed Type medroxyprogesterone 2.5 mg PO QAM 05/26/18 04/20/20 History pravastatin 40 mg PO QAM 05/26/18 04/20/20 History cephalexin 500 mg PO BID 04/20/20 04/20/20 History glimepiride 4 mg PO DAILY 04/20/20 04/20/20 History ramipril 5 mg PO QAM 04/20/20 04/20/20 History Allergies Allergy/AdvReac Type Severity Reaction Status Date / Time Sulfa (Sulfonamide Allergy Unknown SWELLING, Verified 04/20/20 09:31 Antibiotics) HIVES empagliflozin AdvReac Severe Vaginal Verified 04/20/20 09:31 [From Jardiance] irritation Sulfate Allergy Unknown SWELLING/HI Uncoded 04/20/20 09:31 VES Past Med/Surg History Medical History DM type 2 (diabetes mellitus, type 2) History of hysteroscopy HTN (hypertension) Thrombocytopenia Surgical History H/O dilation and curettage S/P cholecystectomy Family History Sister Cervical cancer Social History (Updated 04/20/20 @ 12:33 by JOSELUIS Honeycutt) Smoking Status: Never smoker Hx Alcohol Use: No Hx Substance Use: No Preferred Language: Taiwanese Communication Ability: Effective Visual Impairment: No Limitations Hearing Ability: Normal [facility] Coordinator Required: No Beliefs That Will Affect Care: None Current Living Situation: Alone Other Information That Helps Us Care for You: No Feels Safe at Home: Yes Safety Concerns: Feels Safe At This Time Assistive Devices: Cane, Denture - Upper and Glasses Review of Systems A total of 10 systems reviewed and were otherwise negative Physical Exam Vital Signs Vital Signs - 24 hr 04/20/20 08:28 04/20/20 10:04 04/20/20 10:45 Temperature 37.2 C Temperature Source Temporal Artery Scan Pulse Rate 95 H Pulse Rate [Finger] 74 79 Respiratory Rate 18 18 16 Respiratory Effort / Characteristics Non-Labored Spontaneous Respiratory Depth Normal Respiratory Pattern Regular Blood Pressure 159/82 H Blood Pressure [Right Arm] 131/69 143/66 H Blood Pressure Mean 107 Blood Pressure Mean [Right Arm] 89 91 Blood Pressure Position Sitting Pulse Oximetry 100 98 98 Oxygen Delivery Method Room Air Room Air Sepsis Recent Fever Within 48 Hours No Sepsis New/Unexplained Change in Mental Status N/A Sepsis Action Taken by Nursing No Action Required VITAL SIGNS - Vital signs and nursing notes were reviewed. Stable and afebrile. GENERAL -59-year-old female appearing her stated age who is in no acute distr ess. Communicates well with provider and answers questions appropriately. SKIN -there is diffuse erythema with edema centrally located overlying the forehead that extends laterally. There is also some edema extending towards the right supraorbital region. There is also erythema but edema extending to the scalp just posterior to the hairline on the forehead region. There are 2 areas of what appear to be slight jordan-like crust areas of drainage on the forehead. HEAD - NC/AT. EYES - PERRL with EOMI bilaterally. Sclera anicteric. No pain with EOMs. EARS - No deformities of external structures noted on gross examination bilaterally. No pain elicited with palpation of the tragus bilaterally. External auditory canals without discharge or otorrhea. Tympanic membranes pearly ricci without retraction or bulging. No fluid or purulent material visualized behind the TM. Handle of malleus, umbo, cone of light, pars tensa/flaccid all easily visualized. NOSE - Midline and without cyanosis. No epistaxis or purulent drainage noted. Septum midline without deviation or septal hematoma noted. MOUTH/OROPHARYNX - Without perioral cyanosis. Buccal mucosa pink and moist and without leukoplakia. Tongue midline with equal elevation of palate bilaterally. NECK - Neck with FROM. No nuchal rigidity. LUNGS - Chest wall symmetric without accessory muscle use, intercostals retractions, or central cyanosis. Normal vesicular breath sounds CTA B/L. No wheezes, rales, or rhonchi appreciated. CARDIAC - RRR with S1/S2. No murmur, rubs, or gallops appreciated. EXTREMITIES - No clubbing or peripheral cyanosis. No pretibial edema present. +5/5 strength noted in UE/LE bilaterally. NEUROLOGIC - Cranial nerves II through XII grossly intact. Sensory intact to light touch throughout. PSYCH - A&O, and cooperates fully with examiner. Pt is very pleasant and interacts well with examiner. Course Administered Medications Discontinued Medications Sodium Chloride (Nss 1000ml) 1,000 mls @ 500 mls/hr IV .Q2H RODRIGO Stop: 04/20/20 11:44 Last Infusion: 04/20/20 12:04 Dose: 0 mls/hr Documented by: [id number] Admin: 04/20/20 10:04 Dose: 500 mls/hr Documented by: [id number] Daptomycin 350 mg/ Syringe 7 mls @ 3.5 mls/min IV NOW ONE; Protocol Stop: 04/20/20 10:18 Last Admin: 04/20/20 10:45 Dose: 3.5 mls/min Documented by: [id number] Ceftriaxone Sodium (Rocephin) 2,000 mg in 70 mls @ 140 mls/hr IV NOW STA Stop: 04/20/20 11:24 Last Infusion: 04/20/20 12:15 Dose: 0 mls/hr Documented by: [id number] Admin: 04/20/20 11:32 Dose: 140 mls/hr Documented by: [id number] Ioversol (Ioversol 100ml) 94 ml IV ONCE ONE Stop: 04/20/20 10:40 Last Admin: 04/20/20 10:40 Dose: 94 ml Documented by: [id number] Medical Decision Making Laboratory Data Result diagrams: 04/20/20 09:00 04/20/20 09:00 Lab Results 04/20/20 04/20/20 04/20/20 Range/Units 09:00 09:00 09:00 WBC 5.28 (4.8-10.8) K/uL RBC 4.13 L (4.2-5.4) M/uL Hgb 13.0 (12.0-16.0) g/dL Hct 37.5 (37-47) % MCV 90.8 (80-100) fL MCH 31.5 (25-34) pg MCHC 34.7 (32-36) g/dL RDW Std Deviation 47.4 H (36.4-46.3) fL RDW Coeff of Melissa 14.5 (11.5-14.5) % Plt Count 67 L (130-400) K/uL MPV 9.2 (7.4-10.4) fL Immature Gran % (Auto) 0.2 % Neut % (Auto) 77.0 % Lymph % (Auto) 15.0 % [place] % (Auto) 5.3 % Eos % (Auto) 2.1 % Baso % (Auto) 0.4 % Neut # (Auto) 4.07 (1.4-6.5) K/uL Lymph # (Auto) 0.79 L (1.2-3.4) K/uL [place] # (Auto) 0.28 (0.11-0.59) K/uL Eos # (Auto) 0.11 (0-0.5) K/uL Baso # (Auto) 0.02 (0-0.2) K/uL Immature Gran # (Auto) 0.01 (0.00-0.02) K/uL ESR 66 H (0-21) mm/hr Sodium 135 L (136-145) mmol/L Potassium 4.0 (3.5-5.1) mmol/L Chloride 103 (98-107) mmol/L Carbon Dioxide 24 (21-32) mmol/L Anion Gap 7.0 (3-11) BUN 10 (7-18) mg/dl Creatinine 1.02 (0.6-1.2) mg/dl Est Cr Clr Drug Dosing 77.6 ml/min Est GFR ( Amer) 68.8 Est GFR (Non-Af Amer) 59.3 BUN/Creatinine Ratio 9.3 L (10-20) Glucose 349 H* (70-99) mg/dl Lactate (0.4-2.0) mmol/L Calcium 9.1 (8.5-10.1) mg/dl Total Bilirubin 2.1 H (0.2-1) mg/dl AST 27 (15-37) U/L ALT 25 (12-78) U/L Alkaline Phosphatase 124 H (45-117) U/L C-Reactive Protein 0.67 H (0-0.29) mg/dl Total Protein 7.6 (6.4-8.2) gm/dl Albumin 2.8 L (3.4-5.0) gm/dl Globulin 4.8 H (2.5-4.0) gm/dl Albumin/Globulin Ratio 0.6 L (0.9-2) Beta-Hydroxybutyric Acd 1.01 (0.2-2.81) mg/dl Procalcitonin (0-0.5) ng/ml Hepatitis C Ab Screen (Neg) 04/20/20 04/20/20 04/20/20 Range/Units 09:00 09:00 09:00 WBC (4.8-10.8) K/uL RBC (4.2-5.4) M/uL Hgb (12.0-16.0) g/dL Hct (37-47) % MCV (80-100) fL MCH (25-34) pg MCHC (32-36) g/dL RDW Std Deviation (36.4-46.3) fL RDW Coeff of Melissa (11.5-14.5) % Plt Count (130-400) K/uL MPV (7.4-10.4) fL Immature Gran % (Auto) % Neut % (Auto) % Lymph % (Auto) % [place] % (Auto) % Eos % (Auto) % Baso % (Auto) % Neut # (Auto) (1.4-6.5) K/uL Lymph # (Auto) (1.2-3.4) K/uL [place] # (Auto) (0.11-0.59) K/uL Eos # (Auto) (0-0.5) K/uL Baso # (Auto) (0-0.2) K/uL Immature Gran # (Auto) (0.00-0.02) K/uL ESR (0-21) mm/hr Sodium (136-145) mmol/L Potassium (3.5-5.1) mmol/L Chloride (98-107) mmol/L Carbon Dioxide (21-32) mmol/L Anion Gap (3-11) BUN (7-18) mg/dl Creatinine (0.6-1.2) mg/dl Est Cr Clr Drug Dosing ml/min Est GFR ( Amer) Est GFR (Non-Af Amer) BUN/Creatinine Ratio (10-20) Glucose (70-99) mg/dl Lactate 2.3 H* (0.4-2.0) mmol/L Calcium (8.5-10.1) mg/dl Total Bilirubin (0.2-1) mg/dl AST (15-37) U/L ALT (12-78) U/L Alkaline Phosphatase (45-117) U/L C-Reactive Protein (0-0.29) mg/dl Total Protein (6.4-8.2) gm/dl Albumin (3.4-5.0) gm/dl Globulin (2.5-4.0) gm/dl Albumin/Globulin Ratio (0.9-2) Beta-Hydroxybutyric Acd (0.2-2.81) mg/dl Procalcitonin < 0.05 (0-0.5) ng/ml Hepatitis C Ab Screen Neg (Neg) Imaging Data Radiologist's Impression: CT facial bones w con HISTORY: Forehead erythema, edema. Diabetic. TECHNIQUE: Multiaxial CT images of the maxillofacial region was performed following the intravenous administration of 94 cc of Optiray 320. COMPARISON STUDY: None. FINDINGS: Mild skin thickening and mild subcutaneous edema/fat stranding within the forehead. No loculated fluid collections to suggest an abscess. The globes and retrobulbar fat are intact. There are shotty cervical and submental lymph nodes. Dominant right upper cervical lymph node measures 14 mm in short axis diameter. Dominant submental lymph node measures 1 cm in short axis diameter. The visualized brain parenchyma is unremarkable. There are few prominent bilateral parotid gland lymph nodes which are symmetric. No fractures within the visualized osseous structures. Extensive periodontal disease is noted within the mandible. The paranasal sinuses and mastoid air cells are clear. IMPRESSION: 1. Mild skin thickening and mild subcutaneous edema/fat stranding within the forehead. This favors a mild cellulitis. No loculated fluid collections to sugg est an abscess. 2. Shotty cervical and submental lymph nodes. These are nonspecific. 3. Periodontal disease noted within the mandible. ACT 112: Negative or not required by law. Electronically signed by: Gordon Beltran M.D. 04/20/2020 10:51 AM [facility] Narrative Patient was seen and evaluated as above in room C3. Review was performed of nursing notes and vital signs. I did review pertinent previous visits and patient history. After obtaining a thorough history and physical examination the above work up was performed. Patient presents to us today with atraumatic erythema and edema to the forehead. This began as a small pimple just a few d ays ago and is now progressed quite quickly. This does not appear to be consistent with mucormycosis. This is concerning for cellulitis. No evidence of abscess on clinical examination. Options of care were discussed with the patient. IV access established. Labs were drawn. No leukocytosis. No significant anemia. There is elevation of ESR and CRP. Mild hyponatremia. No evidence of emergent kidney or liver failure. T bili 2.1. Lactic acid 2.3. Glucose 349. Pro-Juan David within normal limits. Given the patient's presentation with elevated glucose in the setting of rapidly progressing forehead erythema and edema it is felt that a CT scan with IV contrast of the face would be reasonable. This was obtained and is as above. Empiric IV daptomycin was ordered. I also added ceftriaxone. I do believe that further evaluation in the inpatient setting is warranted noting the patient developing this while on p.o. Keflex in the setting of her diabetic state here with hyperglycemia and sp eed/onset of the forehead cellulitis. Patient amenable to this. While in the department, I personally reevaluated the patient several times and each time the patient was found to be resting comfortably. The patient was educated upon management, educated upon todays findings/results, hospitalist was consulted and she will be admitted for further evaluation and management. Please refer to further documentation regarding her stay. Case was discussed with the attending physician. GCS: 15 In the evaluation and treatment of this patient the following differential diagnoses were entertained: Cellulitis, abscess, mucormycosis, Duncan's angina, orbital cellulitis, periorbital cellulitis, among others. Impression & Plan Facial cellulitis Discharge Plan Visit Data Chief Complaint: Facial Injury/Pain Stated Complaint: FOREHEAD SWOLLEN ED Provider: Paulette Juárez ED Midlevel Provider: Martin Aranda Discharge Problem: Facial cellulitis Patient Disposition: Admitted As Inpatient Condition: Good Discharge Instructions Interventions: ED Discharge Assessment Last Done: 04/20/20 13:18
[2020-04-20 09:34] LABS: Hematocrit (blood only) 37.5 % (37-47); Mean Corpuscular Hemoglobin 31.5 pg (25-34); Mean Corpuscular Hgb Conc 34.7 g/dL (32-36); Mean Corpuscular Volume 90.8 fL (80-100); Mean Platelet Volume 9.2 fL (7.4-10.4); Platelet Count 67 K/uL (130-400); RDW Coefficient of Variation 14.5 % (11.5-14.5); RDW Standard Deviation 47.4 fL (36.4-46.3); Red Blood Count 4.13 M/uL (4.2-5.4); White Blood Count 5.28 K/uL (4.8-10.8)
[2020-04-20 09:41] LABS: Albumin Globulin Ratio 0.6 (0.9-2); Albumin Level 2.8 gm/dl (3.4-5.0); BUN Creatinine Ratio 9.3 (10-20); Basophils # (auto) 0.02 K/uL (0-0.2); Basophils % (auto) 0.4 %; Bilirubin,Total 2.1 mg/dl (0.2-1); C Reactive Protein 0.67 mg/dl (0-0.29); Calcium 9.1 mg/dl (8.5-10.1); Creatinine Clr Calc Pharmacy 77.6 ml/min; Eosinophils # (auto) 0.11 K/uL (0-0.5); Eosinophils % (auto) 2.1 %; Est GFR (African American) 68.8; Est GFR (Non-African American) 59.3; Globulin 4.8 gm/dl (2.5-4.0); Immature Granulocytes # (auto) 0.01 K/uL (0.00-0.02); Immature Granulocytes % (auto) 0.2 %; Lymphocytes # (auto) 0.79 K/uL (1.2-3.4); Monocytes # (auto) 0.28 K/uL (0.11-0.59); Monocytes % (auto) 5.3 %; Neutrophils # (auto) 4.07 K/uL (1.4-6.5); Total Protein 7.6 gm/dl (6.4-8.2)
[2020-04-20] MEDS ORDERED: SODIUM CHLORIDE 0.9% 1000ML 1,000 ML IV SCH (09:45)
[2020-04-20 09:55] LABS: Beta-Hydroxybutyrate 1.01 mg/dl (0.2-2.81)
[2020-04-20] MEDS ORDERED: DAPTOmycin 350 MG in SYRINGE 0 ML IV ONE (10:17)
[2020-04-20] MEDS ORDERED: IOVERSOL 100ml IV ONE (10:39)
--- NOTE | 2020-04-20 10:52 | CT Scan Report ---
CT facial bones w con HISTORY: Forehead erythema, edema. Diabetic. TECHNIQUE: Multiaxial CT images of the maxillofacial region was performed following the intravenous a dministration of 94 cc of Optiray 320. COMPARISON STUDY: None. FINDINGS: Mild skin thickening and mild subcutaneous edema/fat stranding within the forehead. No locu lated fluid collections to suggest an abscess. The globes and retrobulbar fat are intact. There are s hotty cervical and submental lymph nodes. Dominant right upper cervical lymph node measures 14 mm in short axis diameter. Dominant submental lymph node measures 1 cm in short axis diameter. The visualiz ed brain parenchyma is unremarkable. There are few prominent bilateral parotid gland lymph nodes whic h are symmetric. No fractures within the visualized osseous structures. Extensive periodontal disease is noted within the mandible. The paranasal sinuses and mastoid air cells are clear. IMPRESSION: 1. Mild skin thickening and mild subcutaneous edema/fat stranding within the forehead. This favors a mild cellulitis. No loculated fluid collections to suggest an abscess. 2. Shotty cervical and submental lymph nodes. These are nonspecific. 3. Periodontal disease noted within the mandible. ACT 112: Negative or not required by law. Electronically signed by: Gordon Beltran M.D. 04/20/2020 10:51 AM
[2020-04-20] MEDS ORDERED: cefTRIAXone SODIUM 2,000 MG/70 ML BAG IV STA (10:55)
--- NOTE | 2020-04-20 12:08 | Emergency Department Note ---
ED Visit Note Patient seen in conjunction with Martin Aranda PA-C. Please refer to his note for additional details. Due to concern for evolving facial cellulitis, I did examine the patient at bedside. Patient is a known diabetic, did report a prior history of MRSA many years ago, and did recently have a lower extremity cellulitis at his been slow to heal with use of twice daily Keflex. Patient concerned due to rapid worsening of the involved face. Patient denied any vision changes, proptosis, ptosis, increased lacrimation, or pain with eye movement. Patient denied fevers or chills, nausea or vomiting. Patient denies any recent nasal congestion, headaches, or dizziness. Labs drawn and sent, patient sent for CT imaging. Due to concern for risk and failed outpatient treatment, patient given IV antibiotics and case discussed with the hospitalist. .
--- NOTE | 2020-04-20 12:45 | History & Physical Report ---
Date of Service April 20, 2020 Assessment & Plan (1) Facial cellulitis: -Admit to [facility] -Patient presenting from home with reports of right forehead erythema and swelling, no known trauma or bites -CT negative for drainable abscess -Does not appear septic; afebrile, WBC 5K -Lactic acid mildly elevated 2.3 (likely due to dehydration) -> 1.6 after IVF -S/p IV daptomycin IV ceftriaxone in ED, continue with p.o. doxycycline and IV ceftriaxone for now -Consider ID evaluation as an outpatient due to recurrent cellulitis -Currently being treated for LLE cellulitis with Keflex. Hold Keflex due to antibiotics as above. Seems to be improving. Due to calf tenderness and swelling, check BLE Doppler -If positive for DVT, noted that patient is on medroxyprogesterone due to chronic vaginal bleeding (2) DM type 2 (diabetes mellitus, type 2): -Hgb A1c 9.3 02/2020 -Hold oral agents and utilize Lantus and NovoLog per protocol while hospitalized -Glycemic pharmacy consult -On glimepiride at 4 mg daily, may need adjustments in home regimen (3) HTN (hypertension): -BP controlled, continue ramipril (4) Thrombocytopenia: -Chronic -Platelets 67K, at baseline -No signs of bleeding (5) DVT prophylaxis: -SCDs due to thrombocytopenia History of Present Illness Chief Complaint: Forehead redness and swelling Primary Care Provider: Jenaro Rollins MD 59-year-old female with PMH DM type II, HTN, chronic thrombocytopenia, recurrent cellulitis, and other problems listed below who presents the ED for evaluation of redness and swelling of the right forehead. Patient reports that yesterday she noted 2 small pimples on the right side of her forehead, one along her scalp line and the other along her right eyebrow. Patient reports that this morning whenever she woke up she had redness over the right side of her forehead extending down over the side of her face. There was also swelling. Patient denies drainage. No fevers or chills. Denies any known trauma or bites. Patient currently on Keflex for left lower extremity cellulitis. Was treated on 03/11 with Keflex 500 mg 3 times daily for 10 days. Left lower extremity cellulitis resolved however returned and patient was placed on Keflex again on 04/08, 500 mg twice daily for 20 days. The left lower extremity cellulitis seems to be improving. Patient reports left lateral calf pain. Right lower extremity is more swollen than the left, chronic per patient. Patient denies chest pain or shortness of breath. No lightheadedness, dizziness, diaphoresis, syncopal events. Denies abdominal pain, nausea, vomiting, diarrhea. No urinary symptoms. In the ED, patient is hemodynamically stable, afebrile, WBC 5K. Mild lactic acid elevation of 2.3. Facial CT is negative for abscess. Patient was given IVF, IV ceftriaxone, IV daptomycin. Allergies Allergy/AdvReac Type Severity Reaction Status Date / Time Sulfa (Sulfonamide Allergy Unknown SWELLING, Verified 04/20/20 09:31 Antibiotics) HIVES empagliflozin AdvReac Severe Vaginal Verified 04/20/20 09:31 [From Jardiance] irritation Sulfate Allergy Unknown SWELLING/HI Uncoded 04/20/20 09:31 VES Home Medications Medication Instructions Recorded Confirmed Type medroxyprogesterone 2.5 mg PO QAM 05/26/18 04/20/20 History pravastatin 40 mg PO QAM 05/26/18 04/20/20 History cephalexin 500 mg PO BID 04/20/20 04/20/20 History glimepiride 4 mg PO DAILY 04/20/20 04/20/20 History ramipril 5 mg PO QAM 04/20/20 04/20/20 History Past Med/Surg History Medical History DM type 2 (diabetes mellitus, type 2) History of hysteroscopy HTN (hypertension) Thrombocytopenia Surgical History H/O dilation and curettage S/P cholecystectomy Family History Sister Cervical cancer Social History (Updated 04/20/20 @ 12:33 by JOSELUIS Honeycutt) Smoking Status: Never smoker Hx Alcohol Use: No Hx Substance Use: No Preferred Language: Upper Sorbian Communication Ability: Effective Visual Impairment: No Limitations Hearing Ability: Normal Refractory Technician Required: No Beliefs That Will Affect Care: None Current Living Situation: Alone Other Information That Helps Us Care for You: No Feels Safe at Home: Yes Safety Concerns: Feels Safe At This Time Assistive Devices: Denture - Upper, Denture - Lower and Glasses Review of Systems Review of Systems: ROS per HPI, all other systems reviewed and negative Physical Exam Constitutional: WD/WN, vitals as above + obese Eyes: PERRL, conjunctivae normal, anicteric sclerae ENMT: external ear and nose normal, oropharynx normal Respiratory: normal respiratory effort, lungs clear to auscultation Cardiovascular: Rate/Rhythm: regular rate and regular rhythm Vessels: normal peripheral pulses Extremities: + edema (+1 to +2 edema LLE, +2 to +3 edema RLE) Gastrointestinal (Abdomen): normal bowel sounds, soft, nontender, no hepatosplenomegaly Musculoskeletal: no cyanosis or clubbing, extremities motor strength 5/5 Skin: no rashes, warm and dry Thick, scaly skin RLE, mild erythema and superficial abrasions noted to right melendez; mild erythema noted to left anterior melendez, no open areas noted, mildly warm to touch Neurologic: PERRL, EOMI, accommodation nl, no face palsy, no dysarthria Psychiatric: A+Ox3, euthymic affect Results & Data Results & Data ([facility]) Vital Signs (Past 12 Hours) Vital Signs Temp Pulse Pulse Resp BP BP Pulse Ox 04/20/20 12:15 75 20 163/79 H 98 04/20/20 10:45 79 16 143/66 H 98 04/20/20 10:04 74 18 131/69 98 04/20/20 08:28 37.2 C 95 H 18 159/82 H 100 Laboratory Results Short CBC 04/20/20 04/20/20 Range/Units 09:00 09:00 WBC 5.28 (4.8-10.8) K/uL Hgb 13.0 (12.0-16.0) g/dL Hct 37.5 (37-47) % Plt Count 67 L (130-400) K/uL Lactate 2.3 H* (0.4-2.0) mmol/L BMP 04/20/20 09:00 Sodium 135 L Potassium 4.0 Chloride 103 Carbon Dioxide 24 BUN 10 Creatinine 1.02 Glucose 349 H* Calcium 9.1 Liver Function 04/20/20 Range/Units 09:00 Total Bilirubin 2.1 H (0.2-1) mg/dl AST 27 (15-37) U/L ALT 25 (12-78) U/L Alkaline Phosphatase 124 H (45-117) U/L Albumin 2.8 L (3.4-5.0) gm/dl Diagnostic Findings FACIAL CT IMPRESSION: 1. Mild skin thickening and mild subcutaneous edema/fat stranding within the forehead. This favors a mild cellulitis. No loculated fluid collections to suggest an abscess. 2. Shotty cervical and submental lymph nodes. These are nonspecific. 3. Periodontal disease noted within the mandible. Code Status & VTE Plan VTE Prophylaxis Plan VTE Prophylaxis will be ordered: Yes Supervising Physician Co-Signing Physician Notes Pt was seen seen and examined. Agreed with Teresa HUGGINS exam, assessment and plan. 59-year-old female with PMH DM type II, HTN, chronic thrombocytopenia, recurrent cellulitis presented to the ED for evaluation of redness and swelling of the right forehead. Pt said that yesterday she had 2 small red pimples on the right side of her forehead. Pt said that this morning when she woke up she saw the redness spread across her forehead and extended over her face. Pt said that she has hx of recurrent cellulitis. She said that she is currently under treatment for LLE extremity cellulitis with Keflex. Denies any chest pain, palpitation, dizziness, fever and SOB. In the ER, Lactic acid 2.3 and WBC and procalcitonin normal. CT head showed mild skin thickening and mild subcutaneous edema/fat stranding within the forehead with no loculated fluid collections to suggest an abscess. Doppler of B/L LE showed no DVT within the right or left lower extremity. Received IV Ceftriaxone and Dapto in the ER for the facial cellulitis. Blood cx collected in the ER. Will continue Ceftriaxone IV and adding doxycycline and discontinued Daptomycin. Will follow blood cx. Blood sugar elevated due to uncontrolled DM. Last Hgba1c 9.1 on 02/21. Will hold PO DM med. Will start on lantus and novolog sliding scale. Will consult pharmacy for glycemic management. Continue monitor BS. Alexys MD
[2020-04-20] MEDS ORDERED: GLUCOSE 10 TABS/TUBE PO PRN (13:34)
[2020-04-20] MEDS ORDERED: DEXTROSE 50% 50 ML SYRINGE IV PRN (13:34)
[2020-04-20] MEDS ORDERED: GLUCOSE 40% GEL 15 GM TUBE PO PRN (13:34)
[2020-04-20] MEDS ORDERED: CARBOHYDRATES FOR HYPOGLYCEMIA PO PRN (13:34)
[2020-04-20] MEDS ORDERED: GLUCAGON FOR INJ 1 MG VIAL SQ PRN (13:34)
[2020-04-20] MEDS ORDERED: PHARMACY GLYCEMIC MGMT CONSULT PRN (14:28)
--- NOTE | 2020-04-20 14:38 | Pharmacy Report ---
Glycemic Control Consultation - Date of Service April 20, 2020 - Scope Scope: Glycemic Pharmacist consulted for glycemic control and to write orders per [facility] inpatient glycemic control protocol. - Objective Weight: 123.3 kg Accuchecks BSG (last 24hrs): 04/20/20 04/20/20 09:00 14:09 Glucose 349 H* POC Glucose 223 H Laboratory Data (last 24hrs): 04/20/20 09:00 Potassium 4.0 Carbon Dioxide 24 Anion Gap 7.0 Creatinine 1.02 Est Cr Clr Drug Dosing 77.6 Beta-Hydroxybutyric Acd 1.01 - Recent Pertinent Medications Outpatient Anti-diabetic Regimen: * Amaryl 4 mg daily * A1c = ? Risk Factors for Insulin Resistance: * Infection: Rocephin and doxycycline * Diet: T2DM - Assessment & Plan Assessment & Plan: ASSESSMENT: * Ms Lewis is a 59 y/o F with a PMH of T2DM (on one oral medication with unknown control) who presents with facial cellulitis. On antibiotics and a diet. * Will give Lantus 30 units SQ x 1 (full weight-based stress of 2 based upon adjusted body weight) then have weight-based scale for tomorrow. * Novolog weight-based stress of 2-3. * HbA1C ordered. PLAN FOR INPATIENT GLYCEMIC CONTROL: * Holding outpatient oral diabetes medications * Basal insulin * Lantus 30 units SQ x 1 then 10-20 units SQ BID (10 units if BSG < 120 mg/dL; 15 units if BSG 120-160 mg/dL; 20 units if BSG > 160 mg/dL) * Bolus insulin * NovoLog per scale ACHS or Q6hrs while NPO * Goal Range: Low 110 mg/dL - High 140 mg/dL * Correction Factor: 25 mg/dL/unit * Nutritional / Prandial insulin per carb ratio of 1 unit per 7 grams CHO consumed * Please note that the plan above was derived based on current level of insulin resistance and hospital stress. These recommendations are appropriate for inpatient admission only. Plan of care upon discharge will need to be reassessed to avoid potential outpatient hypo/hyperglycemia. Thank you.
[2020-04-20 14:54] LABS: Appearance Urine Clear (Clear); Bacteria Urine Automated Negative (Negative); Bilirubin Urine Negative (Negative); Blood Urine Negative (Negative); Cast Urine Automated 0 /lpf (0-5); Color Urine Yellow; Epithelial Cell Urine Auto >30 /lpf (0-5); Glucose Urine UA 2+ (Negative); Ketones Urine Negative (Negative); Leukocyte Esterase Urine 2+ (Negative); Nitrite Urine Negative (Negative); Protein Urine Negative (Negative); RBC Urine Automated 0-4 /hpf (0-4); Urobilinogen Urine Negative (Negative); WBC Urine Automated >30 /hpf (0-5); pH Urine 6.5 (4.5-7.5)
--- NOTE | 2020-04-20 14:58 | Ultrasound Report ---
BILATERAL LOWER EXTREMITY VENOUS DOPPLER HISTORY: Bilateral lower extremity edema COMPARISON STUDY: None. FINDINGS: There is normal compressibility, flow, and augmentation within the bilateral lower extremit y deep venous systems. IMPRESSION: No DVT within the right or left lower extremity. ACT 112: Negative or not required by law. Electronically signed by: Gordon Beltran M.D. 04/20/2020 2:56 PM
[2020-04-20] MEDS: INSULIN ASPART 100 UNITS/ML 3 ML PEN SC SCH ×3 (15:25→20:51)
[2020-04-20] MEDS ORDERED: INSULIN GLARGINE SOLOSTAR 100 UNITS/ML 3 ML PEN SC ONE (16:30)
[2020-04-20] MEDS: DOXYCYCLINE HYCLATE 100 MG CAP PO SCH (20:52)
[2020-04-21 07:35] LABS: Hematocrit (blood only) 34.4 % (37-47); Mean Corpuscular Hemoglobin 31.3 pg (25-34); Mean Corpuscular Hgb Conc 34.9 g/dL (32-36); Mean Corpuscular Volume 89.8 fL (80-100); RDW Coefficient of Variation 14.8 % (11.5-14.5); RDW Standard Deviation 48.7 fL (36.4-46.3); Red Blood Count 3.83 M/uL (4.2-5.4); White Blood Count 4.73 K/uL (4.8-10.8)
[2020-04-21 07:43] LABS: Mean Platelet Volume 9.5 fL (7.4-10.4); Platelet Count 70 K/uL (130-400)
[2020-04-21 08:11] LABS: BUN Creatinine Ratio 10.5 (10-20); Calcium 8.9 mg/dl (8.5-10.1); Creatinine Clr Calc Pharmacy 86.1 ml/min; Est GFR (African American) 77.9; Est GFR (Non-African American) 67.2; Potassium 3.9 mmol/L (3.5-5.1)
[2020-04-21 08:17] LABS: Estimated Average Glucose 240 mg/dl
[2020-04-21] MEDS: ACETAMINOPHEN 325 MG TAB PO PRN ×2 (08:48→17:23)
[2020-04-21] MEDS: ENALAPRIL MALEATE 10 MG TAB PO SCH (08:49)
[2020-04-21] MEDS: PRAVASTATIN SOD 40 MG TAB PO SCH (08:49)
[2020-04-21] MEDS: DOXYCYCLINE HYCLATE 100 MG CAP PO SCH ×2 (08:49→20:44)
[2020-04-21] MEDS: INSULIN GLARGINE SOLOSTAR 100 UNITS/ML 3 ML PEN SC SCH ×2 (08:53→20:45)
[2020-04-21] MEDS: INSULIN ASPART 100 UNITS/ML 3 ML PEN SC SCH ×4 (08:54→20:44)
[2020-04-21] MEDS: cefTRIAXone SODIUM 2,000 MG in DEXTROSE 5% 50 ML IV SCH (10:45)
--- NOTE | 2020-04-21 11:09 | Pharmacy Report ---
Pharmacy Glycemic Short Note 2 - Date of Service April 21, 2020 - Glycemic Short BSG Results (Last 24 hours): OUTPATIENT ANTIDIABETIC REGIMEN: * Glimepiride 4 mg PO daily * A1c = 10% (04/21/20) ASSESSMENT: * 59 yo F admitted 04/20/20 secondary to facial cellulitis * Patient received a total of 50 units of insulin yesterday * 30 units basal + 20 units bolus * BSGs started to trend downwards: [phone] mg/dL * Fasting BSG this AM was elevated at 174 mg/dL * Given patient's BMI and HbA1c from today, expect her to be relatively insulin resistant despite being insulin-naive. * Will increase basal insulin scale so that patient receives anywhere from 40-50 units of basal insulin today. * Tightened correction factor and carb ratio this morning with breakfast to reflect actual weight/stress of 3. PLAN FOR INPATIENT GLYCEMIC CONTROL: * Hold outpatient oral diabetes medications * Basal insulin - increased * Lantus 15 - 25 units SQ BID depending on BSG - see eMAR for more details * Bolus insulin - tightened * NovoLog per scale ACHS or Q6hrs while NPO * Goal Range: Low 110 mg/dL - High 140 mg/dL * Correction Factor: 15 mg/dL/unit * Nutritional / Prandial insulin per carb ratio of 1 unit per 4 grams CHO consumed PLAN FOR DISCHARGE: * To be determined
--- NOTE | 2020-04-21 17:12 | Hospitalist Progress Note ---
Date of Service April 21, 2020 Assessment & Plan (1) Facial cellulitis: Presenting on admission with right forehead erythema and swelling CT head showed mild skin thickening and mild subcutaneous edema/fat stranding within the forehead with no loculated fluid collections to suggest an abscess. Lactic acid 2.3 on admission, then repeat normal Received IV Ceftriaxone and Dapto in the ER for the facial cellulitis. Continue IV ceftriaxone and PO doxycycline Blood cx pending Continue monitor closely (2) DM type 2 (diabetes mellitus, type 2): Hgb A1c 10 on 04/21/20 Discussed with patient about insulin on discharge since diabetes not at goals Discussed about diabetes complications with patient that can possible occur in the future. She agreed about insulin on discharge Pharmacy on board for glycemic management Continue Lantus and NovoLog per protocol while hospitalized certified breastfeeding educator consulted Continue monitor blood sugar (3) HTN (hypertension): -BP controlled continue ramipril (4) Thrombocytopenia: Platelets 70K, at baseline No signs of bleeding Continue monitor CBC LLE edema Currently being treated for LLE cellulitis with Keflex. Keflex on hold due to antibiotics as above. venouis Doppler of LE showed no evidence of DVT (5) DVT prophylaxis: Ambulating/SCDs due to thrombocytopenia CODE STATUS FULL CODE Admission and Anticipated Discharge Date Admission Date: April 20, 2020 Subjective Pt was seen and examined for follow up facial cellulitis Sitting in bed with no distress Pt said that she feels ok She said that she does not have any tenderness in her forehead Denies any chest pain, palpitation, dizziness and SOB Physical Exam Physical Exam: General- No acute distress Head- atraumatic, erythema in frontal area Eyes- PERRL, EOMI, ENT- oropharynx clear Neck- supple, no JVD Lungs- clear to auscultation Heart- regular rhythm; no murmur Abdomen- normal bowel sounds, soft, nontender Extremities- no calf tenderness, Thick, scaly skin RLE, mild erythema and superficial abrasions noted to right melendez Neuro- alert, oriented x 3; PERRL, EOMI; no facial palsy; no dysarthria Skin- warm & dry Results & Data Results & Data ([facility]) Vital Signs (Past 12 Hours) Vital Signs Temp Pulse Resp BP Pulse Ox 04/21/20 15:34 36.7 C 85 18 138/80 97 04/21/20 08:02 36.7 C 78 18 133/79 96
[2020-04-22] MEDS: ACETAMINOPHEN 325 MG TAB PO PRN ×2 (07:26→17:23)
[2020-04-22] MEDS: DOXYCYCLINE HYCLATE 100 MG CAP PO SCH ×2 (08:24→20:38)
[2020-04-22] MEDS: PRAVASTATIN SOD 40 MG TAB PO SCH (08:24)
[2020-04-22] MEDS: ENALAPRIL MALEATE 10 MG TAB PO SCH (08:24)
[2020-04-22] MEDS: INSULIN GLARGINE SOLOSTAR 100 UNITS/ML 3 ML PEN SC SCH ×2 (08:26→20:41)
[2020-04-22] MEDS: INSULIN ASPART 100 UNITS/ML 3 ML PEN SC SCH ×4 (08:28→20:40)
--- NOTE | 2020-04-22 11:39 | Pharmacy Report ---
Pharmacy Glycemic Short Note 2 - Date of Service April 22, 2020 - Glycemic Short BSG Results (Last 24 hours): OUTPATIENT ANTIDIABETIC REGIMEN: * Glimepiride 4 mg PO daily * A1c = 10% (04/21/20) ASSESSMENT: 04/22: * Juli received a total of 110 units of insulin yesterday * 55 units basal + 55 units bolus * BSGs were still significantly elevated: [phone] mg/dL * Fasting BSG was elevated again this morning at 185 mg/dL * Given patient had no BSGs at goal yesterday, I will attempt to stress her total daily dose by 30%. This equates to approximately 140 units of insulin per day which when split into 50/50 basal/bolus would be approximately 70 units of Lantus per day. * Will adjust HS scale to provide increased basal dose. * Will tighten her CF/CR this morning to provide increased bolus dose as necessary. 04/21: * 59 yo F admitted 04/20/20 secondary to facial cellulitis * Patient received a total of 50 units of insulin yesterday * 30 units basal + 20 units bolus * BSGs started to trend downwards: 153-177-317-209 mg/dL * Fasting BSG this AM was elevated at 174 mg/dL * Given patient's BMI and HbA1c from today, expect her to be relatively insulin resistant despite being insulin-naive. * Will increase basal insulin scale so that patient receives anywhere from 40-50 units of basal insulin today. * Tightened correction factor and carb ratio this morning with breakfast to reflect actual weight/stress of 3. PLAN FOR INPATIENT GLYCEMIC CONTROL: * Hold outpatient oral diabetes medications * Basal insulin - increased * Lantus 30 - 40 units SQ BID depending on BSG - see eMAR for more details * Bolus insulin - tightened * NovoLog per scale ACHS or Q6hrs while NPO * Goal Range: Low 110 mg/dL - High 140 mg/dL * Correction Factor: 12 mg/dL/unit * Nutritional / Prandial insulin per carb ratio of 1 unit per 3 grams CHO consumed PLAN FOR DISCHARGE: * HbA1c = 10% from 04/21/20. Goal HbA1c for this patient would be < 7% given her age and comorbidities. * Patient will require insulin upon discharge. Doses to follow.
[2020-04-22] MEDS: cefTRIAXone SODIUM 2,000 MG in DEXTROSE 5% 50 ML IV SCH (12:07)
[2020-04-22] MEDS ORDERED: INSULIN GLARGINE SOLOSTAR 100 UNITS/ML 3 ML PEN SC STA (12:28)
[2020-04-22] MEDS: traMADol HCL 50 MG TABLET PO PRN ×2 (15:25→23:36)
--- NOTE | 2020-04-22 19:26 | Hospitalist Progress Note ---
Date of Service April 22, 2020 Assessment & Plan (1) Facial cellulitis: Presenting on admission with right forehead erythema and swelling CT head showed mild skin thickening and mild subcutaneous edema/fat stranding within the forehead with no loculated fluid collections to suggest an abscess. Lactic acid 2.3 on admission, then repeat normal Received IV Ceftriaxone and Dapto in the ER for the facial cellulitis. Continue IV ceftriaxone and PO doxycycline for now Forehead erythema improves Blood cx no growth Continue monitor closely (2) DM type 2 (diabetes mellitus, type 2): Hgb A1c 10 on 04/21/20 Discussed with patient about insulin on discharge since diabetes not at goals Discussed about diabetes complications with patient that can possible occur in the future. She agreed about insulin on discharge Pharmacy on board for glycemic management Continue Lantus and NovoLog per protocol while hospitalized ict educator consulted Will consider to discharge on insulin on discharge. Cost for insulin Basaglar is $4/month Continue monitor blood sugar (3) HTN (hypertension): BP controlled continue ramipril (4) Thrombocytopenia: Platelets 70K, at baseline No signs of bleeding Continue monitor CBC LLE edema Currently being treated for LLE cellulitis with Keflex. Keflex on hold due to antibiotics as above. venouis Doppler of LE showed no evidence of DVT (5) DVT prophylaxis: Ambulating/SCDs due to thrombocytopenia CODE STATUS FULL CODE Disposition Will discharge once medically stable Admission and Anticipated Discharge Date Admission Date: April 21, 2020 Subjective Pt was seen and examined for follow up facial cellulitis Sitting in bed with no distress Pt said that her head hurts this morning and feels tired today Denies any chest pain, palpitation, dizziness and SOB Physical Exam Physical Exam: General- No acute distress Head- atraumatic, erythema in frontal area Eyes- PERRL, EOMI, ENT- oropharynx clear Neck- supple, no JVD Lungs- clear to auscultation Heart- regular rhythm; no murmur Abdomen- normal bowel sounds, soft, nontender Extremities- no calf tenderness, Thick, scaly skin RLE, mild erythema and superficial abrasions noted to right melendez Neuro- alert, oriented x 3; PERRL, EOMI; no facial palsy; no dysarthria Skin- warm & dry Results & Data Results & Data ([facility]) Vital Signs (Past 12 Hours) Vital Signs Temp Pulse Resp BP Pulse Ox 04/22/20 16:24 36.9 C 78 18 135/74 98 04/22/20 08:17 36.7 C 72 18 149/77 H 97
[2020-04-23] MEDS ORDERED: CALCIUM CARBONATE 500 MG CHEWABLE TAB PO PRN (03:01)
[2020-04-23] MEDS ORDERED: MoRPHine SULFATE 4 MG/ML 1 ML CARP\\VIAL IV PRN (06:17)
[2020-04-23] MEDS ORDERED: PROMETHAZINE HCL 12.5 MG in SODIUM CHLORIDE 0.9% 50 ML IV PRN (06:17)
--- NOTE | 2020-04-23 06:21 | Communication Note ---
Date of Service: April 23, 2020 Made aware by RN of 2 episodes of epigastric discomfort going to the chest in a.m. Second episode followed by nausea emesis. Burning as per patient Feels like reflux. AP GERD ? Secondary to doxycycline Clear liquids for now Antacid as needed IV famotidine 1 dose Will relay to AM provider.
[2020-04-23] MEDS ORDERED: FAMOTIDINE 20 MG in SYRINGE 3 ML IV ONE (06:30)
[2020-04-23 06:43] LABS: Hematocrit (blood only) 36.3 % (37-47); Hemoglobin 12.6 g/dL (12.0-16.0); Mean Corpuscular Hemoglobin 31.3 pg (25-34); Mean Corpuscular Hgb Conc 34.7 g/dL (32-36); Mean Corpuscular Volume 90.3 fL (80-100); RDW Coefficient of Variation 14.8 % (11.5-14.5); RDW Standard Deviation 48.6 fL (36.4-46.3); Red Blood Count 4.02 M/uL (4.2-5.4); White Blood Count 6.77 K/uL (4.8-10.8)
[2020-04-23 06:47] LABS: Basophils # (auto) 0.04 K/uL (0-0.2); Basophils % (auto) 0.6 %; Eosinophils # (auto) 0.14 K/uL (0-0.5); Eosinophils % (auto) 2.1 %; Immature Granulocytes # (auto) 0.01 K/uL (0.00-0.02); Immature Granulocytes % (auto) 0.1 %; Lymphocytes # (auto) 1.57 K/uL (1.2-3.4); Lymphocytes % (auto) 23.2 %; Mean Platelet Volume 8.6 fL (7.4-10.4); Monocytes # (auto) 0.42 K/uL (0.11-0.59); Monocytes % (auto) 6.2 %; Neutrophils # (auto) 4.59 K/uL (1.4-6.5); Neutrophils % (auto) 67.8 %; Platelet Count 77 K/uL (130-400)
[2020-04-23 07:09] LABS: Albumin Level 2.7 gm/dl (3.4-5.0); BUN Creatinine Ratio 19.8 (10-20); Calcium 9.4 mg/dl (8.5-10.1); Magnesium 1.5 mg/dl (1.8-2.4); Potassium 4.3 mmol/L (3.5-5.1)
[2020-04-23 07:12] LABS: Albumin Globulin Ratio 0.6 (0.9-2); Bilirubin,Total 1.4 mg/dl (0.2-1); Globulin 4.7 gm/dl (2.5-4.0); Total Protein 7.4 gm/dl (6.4-8.2)
[2020-04-23] MEDS: INSULIN ASPART 100 UNITS/ML 3 ML PEN SC SCH ×4 (08:49→20:50)
[2020-04-23] MEDS: PRAVASTATIN SOD 40 MG TAB PO SCH (08:51)
--- NOTE | 2020-04-23 08:51 | Hospitalist Progress Note ---
Date of Service April 23, 2020 Assessment & Plan (1) Facial cellulitis: Presenting on admission with right forehead erythema and swelling CT head showed mild skin thickening and mild subcutaneous edema/fat stranding within the forehead with no loculated fluid collections to suggest an abscess. Lactic acid 2.3 on admission, then repeat normal Received IV Ceftriaxone and Dapto in the ER for the facial cellulitis. Continue IV ceftriaxone and PO doxycycline for now - switch to IV doxy Forehead erythema improved, swelling improved, poss. drainage from top underneath eschar - consulted gen. surge for poss. abscess I&D, wound care Wound cultx - 04/23 - obtained Blood cx no growth Continue monitor closely (2) DM type 2 (diabetes mellitus, type 2): Hgb A1c 10 on 04/21/20 Discussed with patient about insulin on discharge since diabetes not at goals Discussed about diabetes complications with patient that can possible occur in the future. She agreed about insulin on discharge Pharmacy on board for glycemic management Continue Lantus and NovoLog per protocol while hospitalized block cleaner consulted Plan to discharge on insulin on discharge - glycemic pharm. consulted Cost for insulin Basaglar is $4/month Continue monitor blood sugar (3) HTN (hypertension): BP controlled continue ramipril (4) Thrombocytopenia: Platelets 70K, at baseline No signs of bleeding Continue monitor CBC LLE edema Currently being treated for LLE cellulitis with Keflex. Keflex on hold due to antibiotics as above. venouis Doppler of LE showed no evidence of DVT (5) DVT prophylaxis: Ambulating/SCDs due to thrombocytopenia CODE STATUS FULL CODE Disposition Will discharge once medically stable Admission and Anticipated Discharge Date Admission Date: April 21, 2020 Subjective Pt was seen and examined for follow up facial cellulitis Had nausea and vomiting last night and this AM Sitting in bed with no distress now Feels that swelling and redness is smaller however now has some small poss. pus. drainage at the eschar which seems to be new reported having headache yesterday Denies any chest pain, palpitation, dizziness and SOB Review of Systems Review of Systems: All systems reviewed & are unremarkable except as noted in HPI & below Constitutional: no fever and no chills Respiratory: no cough and no dyspnea Cardiovascular: no chest pain and no palpitations Gastrointestinal: + nausea; no abdominal pain and no vomiting Physical Exam Physical Exam: General- No acute distress Head- atraumatic, erythema and edema in frontal area (right forehead abscess), small poss. pus. drainage at eschar Eyes- PERRL, EOMI, ENT- oropharynx clear Neck- supple, no JVD Lungs- clear to auscultation Heart- regular rhythm; no murmur Abdomen- normal bowel sounds, soft, nontender Extremities- no calf tenderness, Thick, scaly skin RLE, mild erythema and superficial abrasions noted to right melendez Neuro- alert, oriented x 3; PERRL, EOMI; no facial palsy; no dysarthria Skin- warm & dry Results & Data Results & Data ([facility]) Vital Signs (Past 12 Hours) Vital Signs Temp Pulse Resp BP Pulse Ox 04/23/20 07:38 36.6 C 86 18 147/80 H 95 04/23/20 06:21 36.8 C 93 H 15 123/77 95 04/23/20 02:36 36.7 C 65 18 159/84 H 97 04/22/20 22:45 36.8 C 79 14 131/75 94 Laboratory Results 04/23/20 04/23/20 04/23/20 Range/Units 08:37 06:23 06:23 WBC 6.77 (4.8-10.8) K/uL RBC 4.02 L (4.2-5.4) M/uL Hgb 12.6 (12.0-16.0) g/dL Hct 36.3 L (37-47) % MCV 90.3 (80-100) fL MCH 31.3 (25-34) pg MCHC 34.7 (32-36) g/dL RDW Std Deviation 48.6 H (36.4-46.3) fL RDW Coeff of Melissa 14.8 H (11.5-14.5) % Plt Count 77 L (130-400) K/uL MPV 8.6 (7.4-10.4) fL Immature Gran % (Auto) 0.1 % Neut % (Auto) 67.8 % Lymph % (Auto) 23.2 % [place] % (Auto) 6.2 % Eos % (Auto) 2.1 % Baso % (Auto) 0.6 % Neut # (Auto) 4.59 (1.4-6.5) K/uL Lymph # (Auto) 1.57 (1.2-3.4) K/uL [place] # (Auto) 0.42 (0.11-0.59) K/uL Eos # (Auto) 0.14 (0-0.5) K/uL Baso # (Auto) 0.04 (0-0.2) K/uL Immature Gran # (Auto) 0.01 (0.00-0.02) K/uL Sodium 133 L (136-145) mmol/L Potassium 4.3 (3.5-5.1) mmol/L Chloride 106 (98-107) mmol/L Carbon Dioxide 20 L (21-32) mmol/L Anion Gap 8.0 (3-11) BUN 18 D (7-18) mg/dl Creatinine 0.90 (0.6-1.2) mg/dl Est Cr Clr Drug Dosing 88.0 ml/min Est GFR ( Amer) 80.0 Est GFR (Non-Af Amer) 69.0 BUN/Creatinine Ratio 19.8 (10-20) Glucose 236 H (70-99) mg/dl POC Glucose 266 H (70-99) mg/dl Calcium 9.4 (8.5-10.1) mg/dl Magnesium 1.5 L (1.8-2.4) mg/dl Total Bilirubin 1.4 H (0.2-1) mg/dl AST 28 (15-37) U/L ALT 23 (12-78) U/L Alkaline Phosphatase 106 (45-117) U/L Total Protein 7.4 (6.4-8.2) gm/dl Albumin 2.7 L (3.4-5.0) gm/dl Globulin 4.7 H (2.5-4.0) gm/dl Albumin/Globulin Ratio 0.6 L (0.9-2) Lipase 144 (73-393) U/L 04/22/20 04/22/20 04/22/20 Range/Units 20:29 17:13 12:09 WBC (4.8-10.8) K/uL RBC (4.2-5.4) M/uL Hgb (12.0-16.0) g/dL Hct (37-47) % MCV (80-100) fL MCH (25-34) pg MCHC (32-36) g/dL RDW Std Deviation (36.4-46.3) fL RDW Coeff of Melissa (11.5-14.5) % Plt Count (130-400) K/uL MPV (7.4-10.4) fL Immature Gran % (Auto) % Neut % (Auto) % Lymph % (Auto) % [place] % (Auto) % Eos % (Auto) % Baso % (Auto) % Neut # (Auto) (1.4-6.5) K/uL Lymph # (Auto) (1.2-3.4) K/uL [place] # (Auto) (0.11-0.59) K/uL Eos # (Auto) (0-0.5) K/uL Baso # (Auto) (0-0.2) K/uL Immature Gran # (Auto) (0.00-0.02) K/uL Sodium (136-145) mmol/L Potassium (3.5-5.1) mmol/L Chloride (98-107) mmol/L Carbon Dioxide (21-32) mmol/L Anion Gap (3-11) BUN (7-18) mg/dl Creatinine (0.6-1.2) mg/dl Est Cr Clr Drug Dosing ml/min Est GFR ( Amer) Est GFR (Non-Af Amer) BUN/Creatinine Ratio (10-20) Glucose (70-99) mg/dl POC Glucose 196 H 147 H 324 H* (70-99) mg/dl Calcium (8.5-10.1) mg/dl Magnesium (1.8-2.4) mg/dl Total Bilirubin (0.2-1) mg/dl AST (15-37) U/L ALT (12-78) U/L Alkaline Phosphatase (45-117) U/L Total Protein (6.4-8.2) gm/dl Albumin (3.4-5.0) gm/dl Globulin (2.5-4.0) gm/dl Albumin/Globulin Ratio (0.9-2) Lipase (73-393) U/L 04/22/20 Range/Units 12:08 WBC (4.8-10.8) K/uL RBC (4.2-5.4) M/uL Hgb (12.0-16.0) g/dL Hct (37-47) % MCV (80-100) fL MCH (25-34) pg MCHC (32-36) g/dL RDW Std Deviation (36.4-46.3) fL RDW Coeff of Melissa (11.5-14.5) % Plt Count (130-400) K/uL MPV (7.4-10.4) fL Immature Gran % (Auto) % Neut % (Auto) % Lymph % (Auto) % [place] % (Auto) % Eos % (Auto) % Baso % (Auto) % Neut # (Auto) (1.4-6.5) K/uL Lymph # (Auto) (1.2-3.4) K/uL [place] # (Auto) (0.11-0.59) K/uL Eos # (Auto) (0-0.5) K/uL Baso # (Auto) (0-0.2) K/uL Immature Gran # (Auto) (0.00-0.02) K/uL Sodium (136-145) mmol/L Potassium (3.5-5.1) mmol/L Chloride (98-107) mmol/L Carbon Dioxide (21-32) mmol/L Anion Gap (3-11) BUN (7-18) mg/dl Creatinine (0.6-1.2) mg/dl Est Cr Clr Drug Dosing ml/min Est GFR ( Amer) Est GFR (Non-Af Amer) BUN/Creatinine Ratio (10-20) Glucose (70-99) mg/dl POC Glucose 320 H* (70-99) mg/dl Calcium (8.5-10.1) mg/dl Magnesium (1.8-2.4) mg/dl Total Bilirubin (0.2-1) mg/dl AST (15-37) U/L ALT (12-78) U/L Alkaline Phosphatase (45-117) U/L Total Protein (6.4-8.2) gm/dl Albumin (3.4-5.0) gm/dl Globulin (2.5-4.0) gm/dl Albumin/Globulin Ratio (0.9-2) Lipase (73-393) U/L Medications Administered Current Inpatient Medications Acetaminophen (Acetaminophen 325 Mg Tab) 650 mg PO Q4H PRN PRN Reason: pain/fever Stop: 05/20/20 13:33 Last Admin: 04/22/20 17:23 Dose: 650 mg Documented by: Calcium Carbonate (Calcium Carbonate 500 Mg Chewable Tab) 500 mg PO Q6H PRN PRN Reason: Heartburn Stop: 05/23/20 03:00 Dextrose (Dextrose 50% 50 Ml Syringe) 25 - 50 ml IV UD PRN; Protocol PRN Reason: Hypoglycemia Protocol Stop: 05/20/20 13:33 Doxycycline Hyclate (Doxycycline Hyclate 100 Mg Cap) 100 mg PO BID [facility] Stop: 04/27/20 20:59 Last Admin: 04/22/20 20:38 Dose: 100 mg Documented by: Enalapril Maleate (Enalapril Maleate 10 Mg Tab) 20 mg PO QAM [facility] Stop: 05/21/20 08:59 Last Admin: 04/22/20 08:24 Dose: 20 mg Documented by: Glucagon (Glucagon For Inj 1 Mg Vial) 1 mg SQ UD PRN; Protocol PRN Reason: Hypoglycemia Protocol Stop: 05/20/20 13:33 Glucose (Glucose 10 Tabs/Tube) 4 - 8 tabs PO UD PRN; Protocol PRN Reason: Hypoglycemia Protocol Stop: 05/20/20 13:33 Glucose (Glucose 40% Gel 15 Gm Tube) 15 - 30 gm PO UD PRN; Protocol PRN Reason: Hypoglycemia Protocol Stop: 05/20/20 13:33 Ceftriaxone Sodium 2,000 mg/ (Dextrose) 70 mls @ 100 mls/hr IV Q24H RODRIGO; Protocol Stop: 04/26/20 11:41 Last Infusion: 04/22/20 12:56 Dose: Infused Documented by: Promethazine HCl 12.5 mg/ (Sodium Chloride) 50.5 mls @ 202 mls/hr IV Q6H PRN PRN Reason: Nausea And Vomiting Stop: 05/23/20 06:16 Magnesium Sulfate/Dextrose (Magnesium Sulfate / D5w) 1 gm in 100 mls @ 50 mls/hr IV ONE ONE Stop: 04/23/20 10:59 Insulin Aspart (Insulin Aspart 100 Units/Ml 3 Ml Pen) 0 units SC ACHS [facility]; Protocol Stop: 05/20/20 14:29 Last Admin: 04/22/20 20:40 Dose: 5 units Documented by: Insulin Glargine (Insulin Glargine Solostar 100 Units/Ml 3 Ml Pen) 0 units SC BID [facility]; Protocol Stop: 05/21/20 08:59 Last Admin: 04/22/20 20:41 Dose: 40 units Documented by: Medroxyprogesterone Acetate (Medroxyprogesterone Acetate 2.5 Mg Tab) 2.5 mg PO QAM [facility] Stop: 05/21/20 08:59 Last Admin: 04/22/20 08:24 Dose: 2.5 mg Documented by: Miscellaneous (Carbohydrates For Hypoglycemia ) 15 - 30 gm PO UD PRN PRN Reason: Hypoglycemia Protocol Stop: 05/20/20 13:33 Miscellaneous Information (Pharmacy Glycemic Mgmt Consult) 1 ea N/A UD PRN; Protocol PRN Reason: Consult Stop: 05/20/20 14:27 Morphine Sulfate (Morphine Sulfate 4 Mg/Ml 1 Ml Carp\Vial) 4 mg IV Q4H PRN PRN Reason: Pain Stop: 05/07/20 06:16 Pravastatin Sodium (Pravastatin Sod 40 Mg Tab) 40 mg PO QAM [facility] Stop: 05/21/20 08:59 Last Admin: 04/22/20 08:24 Dose: 40 mg Documented by: Tramadol HCl (Tramadol Hcl 50 Mg Tablet) 50 mg PO Q8H PRN PRN Reason: pain Stop: 05/22/20 13:44 Last Admin: 04/22/20 23:36 Dose: 50 mg Documented by:
[2020-04-23] MEDS: ENALAPRIL MALEATE 10 MG TAB PO SCH (08:52)
[2020-04-23] MEDS: DOXYCYCLINE HYCLATE 100 MG CAP PO SCH (08:53)
[2020-04-23] MEDS ORDERED: MAGNESIUM SULFATE / D5W 1 GM/100 ML BAG IV ONE (09:00)
[2020-04-23] MEDS: INSULIN GLARGINE SOLOSTAR 100 UNITS/ML 3 ML PEN SC SCH ×2 (09:02→20:51)
--- NOTE | 2020-04-23 12:13 | Pharmacy Report ---
Pharmacy Glycemic Short Note 2 - Date of Service April 23, 2020 - Glycemic Short BSG Results (Last 24 hours): OUTPATIENT ANTIDIABETIC REGIMEN: * Glimepiride 4 mg PO daily * A1c = 10% (04/21/20) ASSESSMENT: 04/23: * Patient received a total of 153 units of insulin yesterday * 80 units basal + 73 units bolus * BSGs ranged 147 - 324 mg/dL - uncontrolled * Given uncontrolled BSGs will stress total daily dose by at least 30% again today * Fasting BSG this AM was uncontrolled at 266 mg/dL * Despite 45% increase in basal dose from yesterday to today, fasting BSG actually worsened * Therefore, will increase basal again today - of note, only 40 units administered this AM so added an additional 20 units with lunch * Patient's diet was changed to clear liquids overnight secondary to an episode of nausea/vomiting and epigastric pain * Lunchtime BSG was 274 mg/dL. Likely due to late administration of AM insulin and food tray * Will tighten CF and CR with lunch * Expect AM and lunch insulin to stack so dinner BSG should come down nicely but bedtime BSG will let us know if these parameters are too tight 04/22: * Juli received a total of 110 units of insulin yesterday * 55 units basal + 55 units bolus * BSGs were still significantly elevated: [phone] mg/dL * Fasting BSG was elevated again this morning at 185 mg/dL * Given patient had no BSGs at goal yesterday, I will attempt to stress her total daily dose by 30%. This equates to approximately 140 units of insulin per day which when split into 50/50 basal/bolus would be approximately 70 units of Lantus per day. * Will adjust HS scale to provide increased basal dose. * Will tighten her CF/CR this morning to provide increased bolus dose as necessary. 04/21: * 59 yo F admitted 04/20/20 secondary to facial cellulitis * Patient received a total of 50 units of insulin yesterday * 30 units basal + 20 units bolus * BSGs started to trend downwards: [phone] mg/dL * Fasting BSG this AM was elevated at 174 mg/dL * Given patient's BMI and HbA1c from today, expect her to be relatively insulin resistant despite being insulin-naive. * Will increase basal insulin scale so that patient receives anywhere from 40-50 units of basal insulin today. * Tightened correction factor and carb ratio this morning with breakfast to reflect actual weight/stress of 3. PLAN FOR INPATIENT GLYCEMIC CONTROL: * Hold outpatient oral diabetes medications * Basal insulin - increased * Lantus 40 + 20 units this AM (60 units total) x 1 * Lantus 40 - 60 units SQ BID depending on BSG - see eMAR for more details * Bolus insulin - no change * NovoLog per scale ACHS or Q6hrs while NPO * Goal Range: Low 110 mg/dL - High 140 mg/dL * Correction Factor: 10 mg/dL/unit * Nutritional / Prandial insulin per carb ratio of 1 unit per 2.5 grams CHO consumed PLAN FOR DISCHARGE: * HbA1c = 10% from 04/21/20. Goal HbA1c for this patient would be < 7% given her age and comorbidities. * Patient will require insulin upon discharge. Spoke with CDE who states Basaglar is the covered basal insulin per patient's insurance plan. Also, states that patient is agreeable to BID Basaglar dosing which will be necessary with large doses. * If patient was to be discharged at this time, I would: * Recommend continuing Glimepiride 4 mg PO daily * Recommend initiating Basaglar 60 units SC BID * Recommend initiating Metformin 500 mg PO daily. Dose should be titrated upwards by 500 mg per week until patient reaches goal dose of 1000 mg PO BIDM. Vitamin B12 supplementation may be necessary with long-term Metformin use.
[2020-04-23] MEDS ORDERED: INSULIN GLARGINE SOLOSTAR 100 UNITS/ML 3 ML PEN SC STA (12:27)
[2020-04-23] MEDS: cefTRIAXone SODIUM 2,000 MG in DEXTROSE 5% 50 ML IV SCH (12:40)
[2020-04-23] MEDS: PANTOprazole 40 MG TAB PO SCH (14:09)
--- NOTE | 2020-04-23 14:12 | Surgery Consultation ---
Date of Consultation April 23, 2020 Assessment & Plan (1) Facial cellulitis: This is a 59yF with a PMH of DM, HTN, thrombocytopenia, and LE cellulitis who presented to the [facility] ED on 04/20/20 with complaints of forehead pain/swelling since last Tuesday. Despite being on a course of Keflex for LLE cellulitis she developed cellulitis of her forehead region. A face CT obtained on 04/20 showed mild skin thickening and mild subcutaneous edema/fat stranding within the forehead, favoring a mild cellulitis, with no loculated fluid collections to suggest an abscess. Today WBC 6.7 and she is afebrile. Patient showed me pictures of her forehead from prior days and compared to today it overall appears that the swelling and erythema is improving. I tried to express some purulent fluid from the main eschar that can be sent for culture. For now as patient is stable and area overall is getting better agree with continuing course of IV abx for now. We will continue to follow in the event the area matures more into an abscess that could potentially be drained. Supervising Physician Co-Signing Physician Notes I personally saw and evaluated the patient with Ksasie Lynch PA-C and agree with the assessment and plan. 59 yo female with facial cellulitis -No appreciable abscess to drain -Was able to express small amount of fluid sent for culture -She is much improved after 2 days of IV ABX -Continue to monitor response to IV ABX History of Present Illness Attending Physician: Deondre Haines MD History of Present Illness This is a 59yF with a PMH of DM, HTN, thrombocytopenia, and LE cellulitis who presented to the [facility] ED on 04/20/20 with complaints of forehead pain/swelling. Patient reports noticing a small bump around her hairline last Tuesday and a second one pop up on Tuesday. She thought they were pimples as she has had a lot of stress lately, including recent of her . On Tuesday patient reports the areas on her forehead started to become more red, swollen, and painful prompting her to come into the ER for further evaluation. In the ER patient underwent a face CT that revealed mild skin thickening and mild subcutaneous edema/fat stranding within the forehead, favoring a mild cellulitis, without loculated fluid collections to suggest an abscess. Patient denies any trauma to the site. She endorses some pain on the top and back of her head. She denies any fevers/chills, SHRESTHA/dizziness, or drainage from the site. She has a history of cellulitis of her lower extremities and of recent has been on a course of keflex for cellulitis of the LLE. She was initially prescribed a 10 day course of abx on 03/21, but the cellulitis returned and a course of 20 days was prescribed on 04/18. Patient states that since coming into the hospital and receiving IV abx her LLE cellulitis has improved and she feels like her forehead is less swollen and red as well. Allergies Allergy/AdvReac Type Severity Reaction Status Date / Time Sulfa (Sulfonamide Allergy Unknown SWELLING, Verified 04/20/20 09:31 Antibiotics) HIVES empagliflozin AdvReac Severe Vaginal Verified 04/20/20 09:31 [From Jardiance] irritation Sulfate Allergy Unknown SWELLING/HI Uncoded 04/20/20 09:31 VES Home Medications Medication Instructions Recorded Confirmed Type medroxyprogesterone 2.5 mg PO QAM 05/26/18 04/20/20 History pravastatin 40 mg PO QAM 05/26/18 04/20/20 History cephalexin 500 mg PO BID 04/20/20 04/20/20 History glimepiride 4 mg PO DAILY 04/20/20 04/20/20 History ramipril 5 mg PO QAM 04/20/20 04/20/20 History Patient History Medical History DM type 2 (diabetes mellitus, type 2) History of hysteroscopy HTN (hypertension) Thrombocytopenia Surgical History H/O dilation and curettage S/P cholecystectomy Family History Sister Cervical cancer Social History Smoking Status: Never smoker Hx Alcohol Use: No Hx Substance Use: No Preferred Language: Irish Communication Ability: Effective Visual Impairment: No Limitations Hearing Ability: Normal Board Machine Set Up Operator Required: No Beliefs That Will Affect Care: None Current Living Situation: Alone Other Information That Helps Us Care for You: No Feels Safe at Home: Yes Safety Concerns: Feels Safe At This Time Assistive Devices: None Review of Systems Constitutional: no fever and no chills Respiratory: no dyspnea Cardiovascular: no chest pain Gastrointestinal: + nausea Integumentary: + redness and swelling of R forehead associated with pain. LLE cellulitis improving Neurologic: no headache(s) pain on top and in back of her head Physical Exam Physical Exam: awake/alert Constitutional: + obese; no acute distress Respiratory: normal respiratory effort Cardiovascular: Rate/Rhythm: regular rate Skin: + erythema/cellulitis of R forehead. Two areas of eschar noted. TTP noted in area of erythema and around eschars. Scant purulent drainage expressed. Results & Data ([facility]) Vital Signs (Past 12 Hours) Vital Signs Temp Pulse Resp BP Pulse Ox 04/23/20 07:38 36.6 C 86 18 147/80 H 95 04/23/20 06:21 36.8 C 93 H 15 123/77 95 04/23/20 02:36 36.7 C 65 18 159/[address] facial bones w con HISTORY: Forehead erythema, edema. Diabetic. TECHNIQUE: Multiaxial CT images of the maxillofacial region was performed following the intravenous administration of 94 cc of Optiray 320. COMPARISON STUDY: None. FINDINGS: Mild skin thickening and mild subcutaneous edema/fat stranding within the forehead. No loculated fluid collections to suggest an abscess. The globes and retrobulbar fat are intact. There are shotty cervical and submental lymph nodes. Dominant right upper cervical lymph node measures 14 mm in short axis diameter. Dominant submental lymph node measures 1 cm in short axis diameter. The visualized brain parenchyma is unremarkable. There are few prominent bilateral parotid gland lymph nodes which are symmetric. No fractures within the visualized osseous structures. Extensive periodontal disease is noted within the mandible. The paranasal sinuses and mastoid air cells are clear. IMPRESSION: 1. Mild skin thickening and mild subcutaneous edema/fat stranding within the forehead. This favors a mild cellulitis. No loculated fluid collections to suggest an abscess. 2. Shotty cervical and submental lymph nodes. These are nonspecific. 3. Periodontal disease noted within the mandible. ACT 112: Negative or not required by law. Electronically signed by: Gordon Beltran M.D. 04/20/2020 10:51 AM PG Care Time/CCT Total # of Minutes Spent Total Time Spent with Patient: Total time spent is greater than 50% in coordination of care (as documented) at patient's floor/unit and/or counseling patient: Coding Level of Care Code 53916 Initial Inpt Care Lvl 1 Diagnoses Facial cellulitis L03.211
[2020-04-23] MEDS: ACETAMINOPHEN 325 MG TAB PO PRN (17:42)
[2020-04-23] MEDS: DOXYCYCLINE HYCLATE 100 MG in DEXTROSE 5% 100 ML IV SCH (20:44)
[2020-04-24 06:32] LABS: Hematocrit (blood only) 36.2 % (37-47); Hemoglobin 12.4 g/dL (12.0-16.0); Mean Corpuscular Hemoglobin 31.3 pg (25-34); Mean Corpuscular Hgb Conc 34.3 g/dL (32-36); Mean Corpuscular Volume 91.4 fL (80-100); RDW Coefficient of Variation 15.2 % (11.5-14.5); Red Blood Count 3.96 M/uL (4.2-5.4); White Blood Count 6.68 K/uL (4.8-10.8)
[2020-04-24 06:41] LABS: Mean Platelet Volume 9.3 fL (7.4-10.4); Platelet Count 94 K/uL (130-400)
[2020-04-24 07:01] LABS: BUN Creatinine Ratio 14.9 (10-20); Est GFR (African American) 81.1; Magnesium 1.7 mg/dl (1.8-2.4); Phosphorus 3.8 mg/dl (2.5-4.9)
--- NOTE | 2020-04-24 07:49 | Hospitalist Progress Note ---
Date of Service April 24, 2020 Assessment & Plan (1) Facial cellulitis: Presenting on admission with right forehead erythema and swelling CT head showed mild skin thickening and mild subcutaneous edema/fat stranding within the forehead with no loculated fluid collections to suggest an abscess. Lactic acid 2.3 on admission, then repeat normal Received IV Ceftriaxone and Dapto in the ER for the facial cellulitis. Continue IV ceftriaxone and PO doxycycline for now - switch to IV doxy Forehead erythema improved, swelling improved, poss. drainage from top underneath eschar - consulted gen. surge for poss. abscess I&D, wound care Wound cultx - 04/23 - obtained Blood cx no growth Continue monitor closely (2) DM type 2 (diabetes mellitus, type 2): Hgb A1c 10 on 04/21/20 Discussed with patient about insulin on discharge since diabetes not at goals Discussed about diabetes complications with patient that can possible occur in the future. She agreed about insulin on discharge Pharmacy on board for glycemic management Continue Lantus and NovoLog per protocol while hospitalized rn hemo dialysis consulted Plan to discharge on insulin on discharge - glycemic pharm. consulted Cost for insulin Basaglar is $4/month Continue monitor blood sugar Periodontal disease - within mandible - noted on face CT - pt has no pain but does have poor dentition, recommend follow up w/ dentist (3) HTN (hypertension): BP controlled continue ramipril (4) Thrombocytopenia: Platelets 70K, at baseline No signs of bleeding Continue monitor CBC LLE edema Currently being treated for LLE cellulitis with Keflex. Keflex on hold due to antibiotics as above. venous Doppler of LE showed no evidence of DVT (5) DVT prophylaxis: Ambulating/SCDs due to thrombocytopenia CODE STATUS FULL CODE Disposition Will discharge once medically stable likely in next 24-48 hrs Admission and Anticipated Discharge Date Admission Date: April 21, 2020 Subjective Pt seen in follow up of facial cellulitis. Today pt is tearful as her recently. She reports that her forehead is feeling better, less edematous and less pain. Seen by gen. surg. - no abscess to drain. Cultx obtained yesterday. Review of Systems Review of Systems: All systems reviewed & are unremarkable except as noted in HPI & below Constitutional: no fever and no chills Respiratory: no cough and no dyspnea Cardiovascular: no chest pain and no palpitations Gastrointestinal: no abdominal pain, no nausea and no vomiting Physical Exam Physical Exam: General- No acute distress Head- atraumatic, erythema and edema in frontal area (right forehead abscess), small poss. pus. drainage at eschar Eyes- PERRL, EOMI, ENT- oropharynx clear Neck- supple, no JVD Lungs- clear to auscultation Heart- regular rhythm; no murmur Abdomen- normal bowel sounds, soft, nontender Extremities- no calf tenderness, Thick, scaly skin RLE, mild erythema and superficial abrasions noted to right melendez Neuro- alert, oriented x 3; PERRL, EOMI; no facial palsy; no dysarthria Skin- warm & dry Results & Data Results & Data ([facility]) Vital Signs (Past 12 Hours) Vital Signs Temp Pulse Resp BP Pulse Ox 04/24/20 07:14 37.0 C 80 15 108/73 96 04/23/20 23:51 36.8 C 75 16 104/63 94 Laboratory Results 04/24/20 04/24/20 04/23/20 Range/Units 05:58 05:58 20:49 WBC 6.68 (4.8-10.8) K/uL RBC 3.96 L (4.2-5.4) M/uL Hgb 12.4 (12.0-16.0) g/dL Hct 36.2 L (37-47) % MCV 91.4 (80-100) fL MCH 31.3 (25-34) pg MCHC 34.3 (32-36) g/dL RDW Std Deviation 51.0 H (36.4-46.3) fL RDW Coeff of Melissa 15.2 H (11.5-14.5) % Plt Count 94 L (130-400) K/uL MPV 9.3 (7.4-10.4) fL Sodium 139 (136-145) mmol/L Potassium 4.0 (3.5-5.1) mmol/L Chloride 108 H (98-107) mmol/L Carbon Dioxide 24 (21-32) mmol/L Anion Gap 7.0 (3-11) BUN 13 (7-18) mg/dl Creatinine 0.89 (0.6-1.2) mg/dl Est Cr Clr Drug Dosing 89.0 ml/min Est GFR ( Amer) 81.1 Est GFR (Non-Af Amer) 70.0 BUN/Creatinine Ratio 14.9 (10-20) Glucose 118 H (70-99) mg/dl POC Glucose 175 H (70-99) mg/dl Calcium 9.0 (8.5-10.1) mg/dl Phosphorus 3.8 (2.5-4.9) mg/dl Magnesium 1.7 L (1.8-2.4) mg/dl 04/23/20 04/23/20 04/23/20 Range/Units 17:13 12:18 08:37 WBC (4.8-10.8) K/uL RBC (4.2-5.4) M/uL Hgb (12.0-16.0) g/dL Hct (37-47) % MCV (80-100) fL MCH (25-34) pg MCHC (32-36) g/dL RDW Std Deviation (36.4-46.3) fL RDW Coeff of Melissa (11.5-14.5) % Plt Count (130-400) K/uL MPV (7.4-10.4) fL Sodium (136-145) mmol/L Potassium (3.5-5.1) mmol/L Chloride (98-107) mmol/L Carbon Dioxide (21-32) mmol/L Anion Gap (3-11) BUN (7-18) mg/dl Creatinine (0.6-1.2) mg/dl Est Cr Clr Drug Dosing ml/min Est GFR ( Amer) Est GFR (Non-Af Amer) BUN/Creatinine Ratio (10-20) Glucose (70-99) mg/dl POC Glucose 162 H 274 H 266 H (70-99) mg/dl Calcium (8.5-10.1) mg/dl Phosphorus (2.5-4.9) mg/dl Magnesium (1.8-2.4) mg/dl Medications Administered Current Inpatient Medications Acetaminophen (Acetaminophen 325 Mg Tab) 650 mg PO Q4H PRN PRN Reason: pain/fever Stop: 05/20/20 13:33 Last Admin: 04/23/20 17:42 Dose: 650 mg Documented by: Calcium Carbonate (Calcium Carbonate 500 Mg Chewable Tab) 500 mg PO Q6H PRN PRN Reason: Heartburn Stop: 05/23/20 03:00 Dextrose (Dextrose 50% 50 Ml Syringe) 25 - 50 ml IV UD PRN; Protocol PRN Reason: Hypoglycemia Protocol Stop: 05/20/20 13:33 Doxycycline Hyclate (Doxycycline Hyclate 100 Mg Cap) 100 mg PO BID [facility] Stop: 04/27/20 20:59 Last Admin: 04/23/20 08:53 Dose: 100 mg Documented by: Enalapril Maleate (Enalapril Maleate 10 Mg Tab) 20 mg PO QAM RODRIGO Stop: 05/21/20 08:59 Last Admin: 04/23/20 08:52 Dose: 20 mg Documented by: Glucagon (Glucagon For Inj 1 Mg Vial) 1 mg SQ UD PRN; Protocol PRN Reason: Hypoglycemia Protocol Stop: 05/20/20 13:33 Glucose (Glucose 10 Tabs/Tube) 4 - 8 tabs PO UD PRN; Protocol PRN Reason: Hypoglycemia Protocol Stop: 05/20/20 13:33 Glucose (Glucose 40% Gel 15 Gm Tube) 15 - 30 gm PO UD PRN; Protocol PRN Reason: Hypoglycemia Protocol Stop: 05/20/20 13:33 Ceftriaxone Sodium 2,000 mg/ (Dextrose) 70 mls @ 100 mls/hr IV Q24H [facility]; Protocol Stop: 04/26/20 11:41 Last Infusion: 04/23/20 13:45 Dose: Infused Documented by: Promethazine HCl 12.5 mg/ (Sodium Chloride) 50.5 mls @ 202 mls/hr IV Q6H PRN PRN Reason: Nausea And Vomiting Stop: 05/23/20 06:16 Last Infusion: 04/23/20 09:30 Dose: Infused Documented by: Doxycycline Hyclate 100 mg/ (Dextrose) 110 mls @ 50 mls/hr IV Q12H [facility]; Protocol Stop: 04/30/20 20:59 Last Infusion: 04/23/20 23:00 Dose: Infused Documented by: Magnesium Sulfate/Dextrose (Magnesium Sulfate / D5w) 1 gm in 100 mls @ 50 mls/hr IV ONE ONE Stop: 04/24/20 09:46 Insulin Aspart (Insulin Aspart 100 Units/Ml 3 Ml Pen) 0 units SC ACHS [facility]; Protocol Stop: 05/20/20 14:29 Last Admin: 04/23/20 20:50 Dose: 4 units Documented by: Insulin Glargine (Insulin Glargine Solostar 100 Units/Ml 3 Ml Pen) 50 units SC BID [facility]; Protocol Stop: 05/24/20 08:59 Medroxyprogesterone Acetate (Medroxyprogesterone Acetate 2.5 Mg Tab) 2.5 mg PO QAM [facility] Stop: 05/21/20 08:59 Last Admin: 04/23/20 08:52 Dose: 2.5 mg Documented by: Miscellaneous (Carbohydrates For Hypoglycemia ) 15 - 30 gm PO UD PRN PRN Reason: Hypoglycemia Protocol Stop: 05/20/20 13:33 Miscellaneous Information (Pharmacy Glycemic Mgmt Consult) 1 ea N/A UD PRN; Protocol PRN Reason: Consult Stop: 05/20/20 14:27 Morphine Sulfate (Morphine Sulfate 4 Mg/Ml 1 Ml Carp\Vial) 4 mg IV Q4H PRN PRN Reason: Pain Stop: 05/07/20 06:16 Pantoprazole Sodium (Pantoprazole 40 Mg Tab) [facility]: 05/23/20 13:29 Last Admin: 04/23/20 14:09 Dose: 40 mg Documented by: Pravastatin Sodium (Pravastatin Sod 40 Mg Tab) 40 mg PO QAM [facility] Stop: 05/21/20 08:59 Last Admin: 04/23/20 08:51 Dose: 40 mg Documented by: Tramadol HCl (Tramadol Hcl 50 Mg Tablet) 50 mg PO Q8H PRN PRN Reason: pain Stop: 05/22/20 13:44 Last Admin: 04/22/20 23:36 Dose: 50 mg Documented by:
[2020-04-24] MEDS ORDERED: MAGNESIUM SULFATE / D5W 1 GM/100 ML BAG IV ONE (08:00)
[2020-04-24] MEDS: PANTOprazole 40 MG TAB PO SCH (08:51)
[2020-04-24] MEDS: PRAVASTATIN SOD 40 MG TAB PO SCH (08:51)
[2020-04-24] MEDS: ENALAPRIL MALEATE 10 MG TAB PO SCH (08:52)
[2020-04-24] MEDS: INSULIN GLARGINE SOLOSTAR 100 UNITS/ML 3 ML PEN SC SCH ×2 (09:08→19:57)
[2020-04-24] MEDS: INSULIN ASPART 100 UNITS/ML 3 ML PEN SC SCH ×4 (09:09→19:56)
--- NOTE | 2020-04-24 11:11 | Pharmacy Report ---
Pharmacy Glycemic Short Note 2 - Date of Service April 24, 2020 - Glycemic Short BSG Results (Last 24 hours): 04/23/20 04/23/20 04/23/20 12:18 17:13 20:49 Glucose POC Glucose 274 H 162 H 175 H 04/24/20 04/24/20 05:58 08:02 Glucose 118 H POC Glucose 123 H OUTPATIENT ANTIDIABETIC REGIMEN: * Glimepiride 4 mg PO daily * A1c = 10% (04/21/20) ASSESSMENT: 04/24: * Patient has received 171 units of insulin over the past 24hrs * 110 units of Lantus for basal insulin * 61 units of NovoLog for bolus insulin coverage (CF + CR) * BSGs [phone] mg/dl * AM fasting BSG is in goal range at 123mg/dl - significant drop from yesterday (266mgdl). Basal insulin dose increased from 80 to 110 units. Will empirically decrease to 100 units/day to prevent LOW BSG tomorrow from rapid titration. * Post-prandial BSGs are in range after CF/CR tightened yesterday afternoon. No changes needed today. 04/23: * Patient received a total of 153 units of insulin yesterday * 80 units basal + 73 units bolus * BSGs ranged 147 - 324 mg/dL - uncontrolled * Given uncontrolled BSGs will stress total daily dose by at least 30% again today * Fasting BSG this AM was uncontrolled at 266 mg/dL * Despite 45% increase in basal dose from yesterday to today, fasting BSG actually worsened * Therefore, will increase basal again today - of note, only 40 units administered this AM so added an additional 20 units with lunch * Patient's diet was changed to clear liquids overnight secondary to an episode of nausea/vomiting and epigastric pain * Lunchtime BSG was 274 mg/dL. Likely due to late administration of AM insulin and food tray * Will tighten CF and CR with lunch * Expect AM and lunch insulin to stack so dinner BSG should come down nicely but bedtime BSG will let us know if these parameters are too tight 04/22: * Juli received a total of 110 units of insulin yesterday * 55 units basal + 55 units bolus * BSGs were still significantly elevated: [phone] mg/dL * Fasting BSG was elevated again this morning at 185 mg/dL * Given patient had no BSGs at goal yesterday, I will attempt to stress her total daily dose by 30%. This equates to approximately 140 units of insulin per day which when split into 50/50 basal/bolus would be approximately 70 units of Lantus per day. * Will adjust HS scale to provide increased basal dose. * Will tighten her CF/CR this morning to provide increased bolus dose as necessary. 04/21: * 59 yo F admitted 04/20/20 secondary to facial cellulitis * Patient received a total of 50 units of insulin yesterday * 30 units basal + 20 units bolus * BSGs started to trend downwards: [phone] mg/dL * Fasting BSG this AM was elevated at 174 mg/dL * Given patient's BMI and HbA1c from today, expect her to be relatively insulin resistant despite being insulin-naive. * Will increase basal insulin scale so that patient receives anywhere from 40-50 units of basal insulin today. * Tightened correction factor and carb ratio this morning with breakfast to reflect actual weight/stress of 3. PLAN FOR INPATIENT GLYCEMIC CONTROL: * Hold outpatient oral diabetes medications * Basal insulin - change to 100 units/day split BID * Lantus 50 units SQ BID * Bolus insulin -no change * NovoLog per scale ACHS or Q6hrs while NPO * Goal Range: Low 110 mg/dL - High 140 mg/dL * Correction Factor: 10 mg/dL/unit * Nutritional / Prandial insulin per carb ratio of 1 unit per 2.5 grams CHO consumed PLAN FOR DISCHARGE: * HbA1c = 10% from 04/21/20. Goal HbA1c for this patient would be < 7% given her age and comorbidities. * Patient will require insulin upon discharge. Spoke with CDE who states Basaglar is the covered basal insulin per patient's insurance plan. Also, states that patient is agreeable to BID Basaglar dosing which will be necessary with large doses. * If patient was to be discharged at this time, I would: * Recommend continuing Glimepiride 4 mg PO daily * Recommend initiating Basaglar 60 units SC BID * Recommend initiating Metformin 500 mg PO daily. Dose should be titrated upwards by 500 mg per week until patient reaches goal dose of 1000 mg PO BIDM. Vitamin B12 supplementation may be necessary with long-term Metformin use.
--- NOTE | 2020-04-24 11:18 | Surgery Progress Note ---
Date of Service April 24, 2020 Assessment & Plan (1) Facial cellulitis: Patient here with facial cellulitis WBC 6.6 and patient afebrile Overall it continues to improve since admission on current abx There is no abscess present to perform an I&D on at this time Wound cultures pending We will sign off, please call if any questions/concerns Pt seen with Dr. Costa Admission and Anticipated Discharge Date Admission Date: April 21, 2020 Supervising Physician Co-Signing Physician Notes I personally saw and evaluated the patient with Kassie Lynch PA-C and agree with the assessment and plan. 59 yo female with facial cellulitis -No appreciable abscess to drain -She is much improved after 3 days of IV ABX -Will sign off at this time, please call with any questions or concerns Subjective Patient states she is feeling well. Denies fevers. Feels like her forehead scab is itching some. No worsening symptoms. Physical Exam Physical Exam: awake/alert, sitting up in bed Skin: R forehead erythema present, but improving. Two eschars present. No drainage noted. Results & Data ([facility]) Vital Signs (Past 12 Hours) Vital Signs Temp Pulse Resp BP Pulse Ox 04/24/20 07:14 37.0 C 80 15 108/73 96 04/23/20 23:51 36.8 C 75 16 104/63 94 PG Care Time/CCT Total # of Minutes Spent Total Time Spent with Patient: Total time spent is greater than 50% in coordination of care (as documented) at patient's floor/unit and/or counseling patient: Coding Level of Care Code 31639 Subseq Hosp Care Lvl 1 Diagnoses Facial cellulitis L03.211
[2020-04-24] MEDS: DOXYCYCLINE HYCLATE 100 MG in DEXTROSE 5% 100 ML IV SCH ×2 (11:22→20:01)
[2020-04-24] MEDS: cefTRIAXone SODIUM 2,000 MG in DEXTROSE 5% 50 ML IV SCH (13:12)
[2020-04-25 06:57] LABS: Hematocrit (blood only) 36.3 % (37-47); Hemoglobin 12.6 g/dL (12.0-16.0); Mean Corpuscular Hemoglobin 31.5 pg (25-34); Mean Corpuscular Hgb Conc 34.7 g/dL (32-36); Mean Corpuscular Volume 90.8 fL (80-100); RDW Coefficient of Variation 15.1 % (11.5-14.5); RDW Standard Deviation 50.4 fL (36.4-46.3); White Blood Count 5.81 K/uL (4.8-10.8)
[2020-04-25 07:29] LABS: Mean Platelet Volume 9.2 fL (7.4-10.4); Platelet Count 88 K/uL (130-400)
[2020-04-25 07:38] LABS: BUN Creatinine Ratio 14.6 (10-20); Calcium 9.1 mg/dl (8.5-10.1); Est GFR (African American) 71.3; Est GFR (Non-African American) 61.5; Magnesium 1.8 mg/dl (1.8-2.4); Potassium 4.3 mmol/L (3.5-5.1)
[2020-04-25] MEDS: DOXYCYCLINE HYCLATE 100 MG in DEXTROSE 5% 100 ML IV SCH (08:13)
[2020-04-25] MEDS: PRAVASTATIN SOD 40 MG TAB PO SCH (08:13)
[2020-04-25] MEDS: ENALAPRIL MALEATE 10 MG TAB PO SCH (08:13)
[2020-04-25] MEDS: PANTOprazole 40 MG TAB PO SCH (08:13)
--- NOTE | 2020-04-25 08:47 | Hospitalist Progress Note ---
Date of Service April 25, 2020 Assessment & Plan (1) Facial cellulitis: Presenting on admission with right forehead erythema and swelling CT head showed mild skin thickening and mild subcutaneous edema/fat stranding within the forehead with no loculated fluid collections to suggest an abscess. Lactic acid 2.3 on admission, then repeat normal Received IV Ceftriaxone and Dapto in the ER for the facial cellulitis. Continue IV ceftriaxone and PO doxycycline for now - switched to IV doxy Forehead erythema improved, swelling improved, poss. drainage from top underneath eschar - consulted gen. surge for poss. abscess I&D, wound care Per surgery - no abscess to drain Wound cultx - 04/23 - obtained - rare coag negat. staph Blood cx no growth Switch to PO Abx on DC and outpt follow up recommended (2) DM type 2 (diabetes mellitus, type 2): Hgb A1c 10% on 04/21/20 Discussed with patient about insulin on discharge since diabetes not at goals Discussed about diabetes complications with patient that can possible occur in the future. 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 consulted Cost for insulin Basaglar is $4/month Continue monitor blood sugar Discharge on : metformin 500 mg daily, home glimepiride, and Basaglar Kwikpen insulin 40 units BID Pt is to check blood sugar levels twice a day (fasting and bedtime) Follow up w/ PCP on 04/28/20 and follow up w/ glycemic pharm. Periodontal disease - within mandible - noted on face CT - pt has no pain but does have poor dentition, recommend follow up w/ dentist (3) HTN (hypertension): BP controlled continue ramipril (4) Thrombocytopenia: Platelets 70K, at baseline No signs of bleeding Continue monitor CBC LLE edema Currently being treated for LLE cellulitis with Keflex. Keflex on hold while inpt due to antibiotics as above. venous Doppler of LE showed no evidence of DVT (5) DVT prophylaxis: Ambulating/SCDs due to thrombocytopenia CODE STATUS FULL CODE Disposition : Plan to dc home Admission and Anticipated Discharge Date Admission Date: April 21, 2020 Subjective Pt seen in follow up of facial cellulitis, DM type 2 uncontrolled. She reports that she feels much better and her forehead is also feeling better - less swollen, less tender. Seen by gen. surg. - no abscess to drain. Review of Systems Review of Systems: All systems reviewed & are unremarkable except as noted in HPI & below Constitutional: no fever and no chills Respiratory: no cough and no dyspnea Cardiovascular: no chest pain and no palpitations Gastrointestinal: no abdominal pain, no nausea and no vomiting Physical Exam Physical Exam: General- No acute distress Head- atraumatic, erythema and edema in frontal area (much improved) eschar Eyes- PERRL, EOMI, ENT- oropharynx clear Neck- supple, no JVD Lungs- clear to auscultation Heart- regular rhythm; no murmur Abdomen- normal bowel sounds, soft, nontender Extremities- no calf tenderness, Thick, scaly skin RLE, mild erythema and superficial abrasions noted to right melendez Neuro- alert, oriented x 3; PERRL, EOMI; no facial palsy; no dysarthria Skin- warm & dry Results & Data Results & Data ([facility]) Vital Signs (Past 12 Hours) Vital Signs Temp Pulse Resp BP Pulse Ox 04/25/20 07:07 37 C 77 16 126/72 94 04/24/20 23:16 36.7 C 76 16 117/80 96 Laboratory Results 04/25/20 04/25/20 04/25/20 Range/Units 08:09 06:43 06:43 WBC 5.81 (4.8-10.8) K/uL RBC 4.00 L (4.2-5.4) M/uL Hgb 12.6 (12.0-16.0) g/dL Hct 36.3 L (37-47) % MCV 90.8 (80-100) fL MCH 31.5 (25-34) pg MCHC 34.7 (32-36) g/dL RDW Std Deviation 50.4 H (36.4-46.3) fL RDW Coeff of Melissa 15.1 H (11.5-14.5) % Plt Count 88 L (130-400) K/uL MPV 9.2 (7.4-10.4) fL Sodium 139 (136-145) mmol/L Potassium 4.3 (3.5-5.1) mmol/L Chloride 109 H (98-107) mmol/L Carbon Dioxide 24 (21-32) mmol/L Anion Gap 6.0 (3-11) BUN 14 (7-18) mg/dl Creatinine 0.99 (0.6-1.2) mg/dl Est Cr Clr Drug Dosing 80.0 ml/min Est GFR ( Amer) 71.3 Est GFR (Non-Af Amer) 61.5 BUN/Creatinine Ratio 14.6 (10-20) Glucose 104 H (70-99) mg/dl POC Glucose 111 H (70-99) mg/dl Calcium 9.1 (8.5-10.1) mg/dl Magnesium 1.8 (1.8-2.4) mg/dl 04/24/20 04/24/20 04/24/20 Range/Units 19:47 17:20 12:03 WBC (4.8-10.8) K/uL RBC (4.2-5.4) M/uL Hgb (12.0-16.0) g/dL Hct (37-47) % MCV (80-100) fL MCH (25-34) pg MCHC (32-36) g/dL RDW Std Deviation (36.4-46.3) fL RDW Coeff of Melissa (11.5-14.5) % Plt Count (130-400) K/uL MPV (7.4-10.4) fL Sodium (136-145) mmol/L Potassium (3.5-5.1) mmol/L Chloride (98-107) mmol/L Carbon Dioxide (21-32) mmol/L Anion Gap (3-11) BUN (7-18) mg/dl Creatinine (0.6-1.2) mg/dl Est Cr Clr Drug Dosing ml/min Est GFR ( Amer) Est GFR (Non-Af Amer) BUN/Creatinine Ratio (10-20) Glucose (70-99) mg/dl POC Glucose 188 H 113 H 183 H (70-99) mg/dl Calcium (8.5-10.1) mg/dl Magnesium (1.8-2.4) mg/dl Medications Administered Current Inpatient Medications Acetaminophen (Acetaminophen 325 Mg Tab) 650 mg PO Q4H PRN PRN Reason: pain/fever Stop: 05/20/20 13:33 Last Admin: 04/23/20 17:42 Dose: 650 mg Documented by: Calcium Carbonate (Calcium Carbonate 500 Mg Chewable Tab) 500 mg PO Q6H PRN PRN Reason: Heartburn Stop: 05/23/20 03:00 Dextrose (Dextrose 50% 50 Ml Syringe) 25 - 50 ml IV UD PRN; Protocol PRN Reason: Hypoglycemia Protocol Stop: 05/20/20 13:33 Doxycycline Hyclate (Doxycycline Hyclate 100 Mg Cap) 100 mg PO BID [facility] Stop: 04/27/20 20:59 Last Admin: 04/23/20 08:53 Dose: 100 mg Documented by: Enalapril Maleate (Enalapril Maleate 10 Mg Tab) 20 mg PO QAM RODRIGO Stop: 05/21/20 08:59 Last Admin: 04/25/20 08:13 Dose: 20 mg Documented by: Glucagon (Glucagon For Inj 1 Mg Vial) 1 mg SQ UD PRN; Protocol PRN Reason: Hypoglycemia Protocol Stop: 05/20/20 13:33 Glucose (Glucose 10 Tabs/Tube) 4 - 8 tabs PO UD PRN; Protocol PRN Reason: Hypoglycemia Protocol Stop: 05/20/20 13:33 Glucose (Glucose 40% Gel 15 Gm Tube) 15 - 30 gm PO UD PRN; Protocol PRN Reason: Hypoglycemia Protocol Stop: 05/20/20 13:33 Ceftriaxone Sodium 2,000 mg/ (Dextrose) 70 mls @ 100 mls/hr IV Q24H [facility]; Protocol Stop: 04/26/20 11:41 Last Infusion: 04/24/20 14:05 Dose: Infused Documented by: Promethazine HCl 12.5 mg/ (Sodium Chloride) 50.5 mls @ 202 mls/hr IV Q6H PRN PRN Reason: Nausea And Vomiting Stop: 05/23/20 06:16 Last Infusion: 04/23/20 09:30 Dose: Infused Documented by: Doxycycline Hyclate 100 mg/ (Dextrose) 110 mls @ 50 mls/hr IV Q12H [facility]; Protocol Stop: 04/30/20 20:59 Last Admin: 04/25/20 08:13 Dose: 50 mls/hr Documented by: Magnesium Sulfate/Dextrose (Magnesium Sulfate / D5w) 1 gm in 100 mls @ 50 mls/h r IV ONE ONE Stop: 04/25/20 10:59 Insulin Aspart (Insulin Aspart 100 Units/Ml 3 Ml Pen) 0 units SC [facility]; Protocol Stop: 05/20/20 14:29 Last Admin: 04/24/20 19:56 Dose: 11 units Documented by: Insulin Glargine (Insulin Glargine Solostar 100 Units/Ml 3 Ml Pen) 45 units SC BID [facility]; Protocol Stop: 05/25/20 08:59 Medroxyprogesterone Acetate (Medroxyprogesterone Acetate 2.5 Mg Tab) [facility] [place] Stop: 05/21/20 08:59 Last Admin: 04/25/20 08:13 Dose: 2.5 mg Documented by: Miscellaneous (Carbohydrates For Hypoglycemia ) 15 - 30 gm PO UD PRN PRN Reason: Hypoglycemia Protocol Stop: 05/20/20 13:33 Miscellaneous Information (Pharmacy Glycemic Mgmt Consult) 1 ea N/A UD PRN; Protocol PRN Reason: Consult Stop: 05/20/20 14:27 Morphine Sulfate (Morphine Sulfate 4 Mg/Ml 1 Ml Carp\Vial) 4 mg IV Q4H PRN PRN Reason: Pain Stop: 05/07/20 06:16 Pantoprazole Sodium (Pantoprazole 40 Mg Tab) 40 mg PO [facility] Stop: 05/23/20 13:29 Last Admin: 04/25/20 08:13 Dose: 40 mg Documented by: Pravastatin Sodium (Pravastatin Sod 40 Mg Tab) 40 mg PO [facility] Stop: 05/21/20 08:59 Last Admin: 04/25/20 08:13 Dose: 40 mg Documented by: Tramadol HCl (Tramadol Hcl 50 Mg Tablet) 50 mg PO Q8H PRN PRN Reason: pain Stop: 05/22/20 13:44 Last Admin: 04/22/20 23:36 Dose: 50 mg Documented by:
[2020-04-25] MEDS: INSULIN ASPART 100 UNITS/ML 3 ML PEN SC SCH ×2 (08:56→13:06)
[2020-04-25] MEDS ORDERED: INSULIN GLARGINE SOLOSTAR 100 UNITS/ML 3 ML PEN SC SCH (09:00)
[2020-04-25] MEDS ORDERED: MAGNESIUM SULFATE / D5W 1 GM/100 ML BAG IV ONE (09:00)
--- NOTE | 2020-04-25 09:43 | Pharmacy Report ---
Pharmacy Glycemic Short Note 2 - Date of Service April 25, 2020 - Glycemic Short BSG Results (Last 24 hours): 04/24/20 04/24/20 04/24/20 12:03 17:20 19:47 Glucose POC Glucose 183 H 113 H 188 H 04/25/20 04/25/20 06:43 08:09 Glucose 104 H POC Glucose 111 H OUTPATIENT ANTIDIABETIC REGIMEN: * Glimepiride 4 mg PO daily * A1c = 10% (04/21/20) ASSESSMENT: 04/25: * Patient has received 157 units of insulin over the past 24hrs * 100 units of Lantus for basal insulin * 57 units of NovoLog for bolus insulin coverage (CF + CR) * BSGs [phone] mg/dl * AM fasting BSG is in goal range at 111mg/dl - HOWEVER, significant drop from 04/23 (266mg/dl) & 04/24 (123 mg/dl). Empirically decreased basal insulin dosing yesterday. Will decrease basal insulin slightly again today to prevent LOW tomorrow. * Post-prandial BSGs are elevated when NOT given with additional correctional insulin. Will tighten CR and loosen CF since likely adequate basal insulin on board. 04/24: * Patient has received 171 units of insulin over the past 24hrs * 110 units of Lantus for basal insulin * 61 units of NovoLog for bolus insulin coverage (CF + CR) * BSGs [phone] mg/dl * AM fasting BSG is in goal range at 123mg/dl - significant drop from yesterday (266mgdl). Basal insulin dose increased from 80 to 110 units. Will empirically decrease to 100 units/day to prevent LOW BSG tomorrow from rapid titration. * Post-prandial BSGs are in range after CF/CR tightened yesterday afternoon. No changes needed today. 04/23: * Patient received a total of 153 units of insulin yesterday * 80 units basal + 73 units bolus * BSGs ranged 147 - 324 mg/dL - uncontrolled * Given uncontrolled BSGs will stress total daily dose by at least 30% again today * Fasting BSG this AM was uncontrolled at 266 mg/dL * Despite 45% increase in basal dose from yesterday to today, fasting BSG actually worsened * Therefore, will increase basal again today - of note, only 40 units administered this AM so added an additional 20 units with lunch * Patient's diet was changed to clear liquids overnight secondary to an episode of nausea/vomiting and epigastric pain * Lunchtime BSG was 274 mg/dL. Likely due to late administration of AM insulin and food tray * Will tighten CF and CR with lunch * Expect AM and lunch insulin to stack so dinner BSG should come down nicely but bedtime BSG will let us know if these parameters are too tight 04/22: * Juli received a total of 110 units of insulin yesterday * 55 units basal + 55 units bolus * BSGs were still significantly elevated: [phone] mg/dL * Fasting BSG was elevated again this morning at 185 mg/dL * Given patient had no BSGs at goal yesterday, I will attempt to stress her total daily dose by 30%. This equates to approximately 140 units of insulin per day which when split into 50/50 basal/bolus would be approximately 70 units of Lantus per day. * Will adjust HS scale to provide increased basal dose. * Will tighten her CF/CR this morning to provide increased bolus dose as necessary. 04/21: * 59 yo F admitted 04/20/20 secondary to facial cellulitis * Patient received a total of 50 units of insulin yesterday * 30 units basal + 20 units bolus * BSGs started to trend downwards: [phone] mg/dL * Fasting BSG this AM was elevated at 174 mg/dL * Given patient's BMI and HbA1c from today, expect her to be relatively insulin resistant despite being insulin-naive. * Will increase basal insulin scale so that patient receives anywhere from 40-50 units of basal insulin today. * Tightened correction factor and carb ratio this morning with breakfast to reflect actual weight/stress of 3. PLAN FOR INPATIENT GLYCEMIC CONTROL: * Hold outpatient oral diabetes medications * Basal insulin - decrease from 100units/day to 90 units/day split BID * Lantus 45 units SQ BID * Bolus insulin -tighten CR and loosen CF * NovoLog per scale ACHS or Q6hrs while NPO * Goal Range: Low 110 mg/dL - High 140 mg/dL * Correction Factor: 12 mg/dL/unit * Nutritional / Prandial insulin per carb ratio of 1 unit per 2 grams CHO consumed PLAN FOR DISCHARGE: * HbA1c = 10% from 1/18/21. Goal HbA1c for this patient would be < 7% given her age and comorbidities. * Patient will require insulin upon discharge. Spoke with CDE who states Basaglar is the covered basal insulin per patient's insurance plan. Also, states that patient is agreeable to BID Basaglar dosing which will be necessary with large doses. * If patient was to be discharged at this time, I would: * Recommend continuing Glimepiride 4 mg PO daily * Recommend initiating Basaglar 40-45 units SC BID * Recommend initiating Metformin 500 mg PO daily. Dose should be titrated upwards by 500 mg per week until patient reaches goal dose of 1000 mg PO BIDM. Vitamin B12 supplementation may be necessary with long-term Metformin use.
[2020-04-25] MEDS: cefTRIAXone SODIUM 2,000 MG in DEXTROSE 5% 50 ML IV SCH (12:17)
--- NOTE | 2020-04-25 14:22 | Discharge Summary ---
Date of Service April 25, 2020 Admission HPI Per Admitting Provider 59-year-old female with PMH DM type II, HTN, chronic thrombocytopenia, recurrent cellulitis, and other problems listed below who presents the ED for evaluation of redness and swelling of the right forehead. Patient reports that yesterday she noted 2 small pimples on the right side of her forehead, one along her scalp line and the other along her right eyebrow. Patient reports that this morning whenever she woke up she had redness over the right side of her forehead extending down over the side of her face. There was also swelling. Patient denies drainage. No fevers or chills. Denies any known trauma or bites. Patient currently on Keflex for left lower extremity cellulitis. Was treated on 03/11 with Keflex 500 mg 3 times daily for 10 days. Left lower extremity cellulitis resolved however returned and patient was placed on Keflex again on 04/08, 500 mg twice daily for 20 days. The left lower extremity cellulitis seems to be improving. Patient reports left lateral calf pain. Right lower extremity is more swollen than the left, chronic per patient. Patient denies chest pain or shortness of breath. No lightheadedness, dizziness, diaphoresis, syncopal events. Denies abdominal pain, nausea, vomiting, diarrhea. No urinary symptoms. In the ED, patient is hemodynamically stable, afebrile, WBC 5K. Mild lactic acid elevation of 2.3. Facial CT is negative for abscess. Patient was given IVF, IV ceftriaxone, IV daptomycin. Admission Exam Per Admitting Provider Constitutional: WD/WN, vitals as above + obese Eyes: PERRL, conjunctivae normal, anicteric sclerae ENMT: external ear and nose normal, oropharynx normal Respiratory: normal respiratory effort, lungs clear to auscultation Cardiovascular: Rate/Rhythm: regular rate and regular rhythm Vessels: normal peripheral pulses Extremities: + edema (+1 to +2 edema LLE, +2 to +3 edema RLE) Gastrointestinal (Abdomen): normal bowel sounds, soft, nontender, no hepatosplenomegaly Musculoskeletal: no cyanosis or clubbing, extremities motor strength 5/5 Skin: no rashes, warm and dry Thick, scaly skin RLE, mild erythema and superficial abrasions noted to right melendez; mild erythema noted to left anterior melendez, no open areas noted, mildly warm to touch Neurologic: PERRL, EOMI, accommodation nl, no face palsy, no dysarthria Psychiatric: A+Ox3, euthymic affect Principal Diagnosis Facial cellulitis Uncontrolled diabetes mellitus type 2 Discharge Exam General- No acute distress Head- atraumatic, erythema and edema in frontal area (much improved) eschar Eyes- PERRL, EOMI, ENT- oropharynx clear Neck- supple, no JVD Lungs- clear to auscultation Heart- regular rhythm; no murmur Abdomen- normal bowel sounds, soft, nontender Extremities- no calf tenderness, Thick, scaly skin RLE, mild erythema and superficial abrasions noted to right melendez Neuro- alert, oriented x 3; PERRL, EOMI; no facial palsy; no dysarthria Skin- warm & dry Discharge Data Allergies Allergy/AdvReac Type Severity Reaction Status Date / Time Sulfa (Sulfonamide Allergy Unknown SWELLING, Verified 04/20/20 09:31 Antibiotics) HIVES empagliflozin AdvReac Severe Vaginal Verified 04/20/20 09:31 [From Jardiance] irritation Sulfate Allergy Unknown SWELLING/HI Uncoded 04/20/20 09:31 VES Consultations 04/20/20 11:17 ED Decision to Admit Stat 04/23/20 12:54 Consult General Surgery Routine Ordered Studies 04/20/20 10:05 CT facial bones w con Stat IMPRESSION: 1. Mild skin thickening and mild subcutaneous edema/fat stranding within the forehead. This favors a mild cellulitis. No loculated fluid collections to suggest an abscess. 2. Shotty cervical and submental lymph nodes. These are nonspecific. 3. Periodontal disease noted within the mandible. 04/20/20 12:13 US venous doppler LE BI Routine IMPRESSION: No DVT within the right or left lower extremity. Diabetes Follow up Diabetes Follow-up Needed for HgbA1c >9% Hospital Course (1) Facial cellulitis: Presenting on admission with right forehead erythema and swelling CT head showed mild skin thickening and mild subcutaneous edema/fat stranding within the forehead with no loculated fluid collections to suggest an abscess. Lactic acid 2.3 on admission, then repeat normal Received IV Ceftriaxone and Dapto in the ER for the facial cellulitis. Continue IV ceftriaxone and PO doxycycline for now - switched to IV doxy Forehead erythema improved, swelling improved, poss. drainage from top underneath eschar - consulted gen. surge for poss. abscess I&D, wound care Per surgery - no abscess to drain Wound cultx - 04/23 - obtained - rare coag negat. staph Blood cx no growth Switch to PO Abx - cont. home cephalexin, added PO doxy, on DC and outpt follow up recommended (2) DM type 2 (diabetes mellitus, type 2): Hgb A1c 10% on 04/21/20 Discussed with patient about insulin on discharge since diabetes not at goals Discussed about diabetes complications with patient that can possible occur in the future. 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 consulted Cost for insulin Basaglar is $4/month Continue monitor blood sugar Discharge on : metformin 500 mg daily, home glimepiride, and Basaglar Kwikpen insulin 40 units BID Pt is to check blood sugar levels twice a day (fasting and bedtime) Follow up w/ PCP on 04/28/20 and follow up w/ glycemic pharm. Periodontal disease - within mandible - noted on face CT - pt has no pain but does have poor dentition, recommend follow up w/ dentist (3) HTN (hypertension): BP controlled continue ramipril (4) Thrombocytopenia: Platelets 70K, at baseline No signs of bleeding Continue monitor CBC LLE edema Currently being treated for LLE cellulitis with Keflex. Keflex on hold while inpt due to antibiotics as above. venous Doppler of LE showed no evidence of DVT (5) DVT prophylaxis: Ambulating/SCDs due to thrombocytopenia CODE STATUS FULL CODE Disposition : Plan to dc home Total Time Total Time Spent Total Time Spent (In Minutes): 45 Total Time Includes: Examination of the Patient, Discharge Planning, Medication Reconciliation and Communication With Other Providers Discharge Plan Discharge Items Patient Disposition: Home - Self-Care Reason For Visit: FACIAL CELLULITIS Discharge Diagnosis: Facial cellulitis Uncontrolled diabetes mellitus type 2 Condition on Discharge: Good Activity: Resume your previous activity Non-emergency contact: Primary Care Provider Call non-emergency contact if: you have any medication questions and your symptoms worsen Follow-up/Referrals: Jenaro Rollins MD [Primary Care Provider] - (Date & Time 04/28/2020 3:00 PM Provider Jenaro Rollins MD Department Internal Medicine [facility] ) Diet: Carb Consistent or DM2 and Heart Healthy Addtl Attending Provider Instructions: Follow up with primary care doctor, the appointment was scheduled for you for 04/28. Continue taking cephalexin (antibiotic) from your primary care doctor and in addition take doxycycline for the next several days. The prescription was sent to your pharmacy. It is very important that your diabetes is better controlled. Take glimepiride as before, however also take metformin 500mg daily (take it with food). Check your blood sugar twice a day (in the morning before eating and at bedtime). Start using insulin (Basaglar Kwikpen) 40 unit twice a day. It is also important that you follow up with your dentist at your earliest convenience. Pending Studies at Discharge: No Stand-Alone Forms: My [facility], Smoking Cessation Medications and DC Order Prescriptions: New Basaglar KwikPen U-100 Insulin 100 unit/mL (3 mL) insulin pen 40 unit subcut BID Qty: 15 RF: 0 doxycycline hyclate 100 mg Capsule 100 mg PO BID 4 Days Qty: 8 RF: 0 metformin 500 mg tablet extended release 24 hr 500 mg PO DAILY Qty: 30 RF: 0 Continued pravastatin 40 mg tablet 40 mg PO QAM RF: 0 medroxyprogesterone 2.5 mg tablet 2.5 mg PO QAM RF: 0 cephalexin 500 mg capsule 500 mg PO BID RF: 0 ramipril 5 mg capsule 5 mg PO QAM RF: 0 glimepiride 4 mg tablet 4 mg PO DAILY RF: 0 Discharge Orders: Discharge Order (Routine); Ordered 04/25/20 Ordered By: Deondre Haines Admission Data Admit Date/Time: 04/21/20 23:01 Attending Provider: Deondre Haines Admit Provider: Zuleyka Reardon Primary Care Provider: Jenaro Rollins Other Providers: Zuleyka Reardon ; Andrey Costa Other Interventions: Discharge Summary Assessment (RN) Last Done: 04/25/20 14:08
== END 2020-04-25 15:18 | disposition home or self-care (01) | DRG 603 ==
LOC: 3W 08:24 → ED 08:24 → 3W 13:18 → SUATTDRO 04-21 23:01

== ENCOUNTER 2022-05-14 20:12 | Inpatient (IN) ==
[2022-05-14 21:21] LABS: Albumin Globulin Ratio 0.8 (0.9-2); Albumin Level 2.8 gm/dl (3.4-5.0); Calcium 8.2 mg/dl (8.5-10.1); Creatinine Clr Calc Pharmacy 83.1 ml/min; Est GFR (African American) 69.4 ml/min; Est GFR (Non-African American) 59.9 ml/min; Globulin 3.7 gm/dl (2.5-4.0); Potassium 4.1 mmol/L (3.5-5.1); Total Protein 6.5 gm/dl (6.0-8.3)
[2022-05-14 21:36] LABS: Basophils # (auto) 0.03 K/uL (0-0.2); Basophils % (auto) 0.3 %; Eosinophils # (auto) 0.15 K/uL (0-0.50); Eosinophils % (auto) 1.6 %; Hematocrit (blood only) 35.3 % (37.0-47.0); Immature Granulocytes # (auto) 0.05 K/uL (0.01-0.20); Immature Granulocytes % (auto) 0.5 %; Lymphocytes # (auto) 1.09 K/uL (1.2-3.4); Lymphocytes % (auto) 11.3 %; Mean Corpuscular Hemoglobin 32.1 pg (25.0-34.0); Mean Corpuscular Volume 94.4 fL (80.0-100.0); Mean Platelet Volume 9.4 fL (9.4-12.4); Monocytes # (auto) 0.55 K/uL (0.11-0.59); Monocytes % (auto) 5.7 %; Neutrophils # (auto) 7.75 K/uL (1.40-6.50); Neutrophils % (auto) 80.6 %; Platelet Count 60 K/uL (130-400); RDW Coefficient of Variation 14.5 % (11.5-14.5); RDW Standard Deviation 50.2 fL (36.4-46.3); Red Blood Count 3.74 M/uL (4.20-5.40); White Blood Count 9.62 K/ul (4.8-10.8)
[2022-05-14] MEDS ORDERED: VANCOMYCIN HCL 2,750 MG in SODIUM CHLORIDE 0.9% 500 ML IV ONE (23:24)
[2022-05-14] MEDS ORDERED: VANCOMYCIN CONSULT ACTIVE PRN (23:24)
[2022-05-14] MEDS ORDERED: DOXYCYCLINE HYCLATE 100 MG in DEXTROSE 5% 100 ML IV STA (23:29)
[2022-05-14] MEDS ORDERED: lisinopril 5 MG TAB PO STA (23:32)
--- NOTE | 2022-05-14 23:38 | Emergency Department Note ---
Impression & Plan Cellulitis of right foot, Cellulitis of leg, right, Acute hyperglycemia ED Provider Note INFORMANT: Patient ED PROVIDER(S): Hnog Logan DO CHIEF COMPLAINT: Cellulitis right leg PLAN: Disposition: Admission Condition: Stable Outpatient prescription management: none Referral: I spoke with the hospitalist, who will see the patient for admission/observation and further evaluation and consultation. MEDICAL DECISION MAKING: This is a 61-year-old female who presents to the ED with a chief complaint of worsening right leg cellulitis. The patient states that she was here this morning with some erythema to her right foot. She was given IV antibiotics and then discharged on oral antibiotics. Despite the antibiotics that she is received, her symptoms have worsened. She states that the redness is now extended from her foot all the way to almost her knee. It is almost circumferential on exam. She has some tenderness to her foot and increased edema more than her baseline. She has a history of some pedal edema and lymphedema on a chronic basis. She also also a type II diabetic. The patient denies any systemic symptoms such as fevers, nausea or vomiting. She is noted to be hypertensive and her vital signs are otherwise unremarkable. Her CBC did not show any significant leukocytosis or anemia. Chemistry panel was unremarkable. The patient was treated with IV vancomycin. She will be seen by the hospitalist for further evaluation and care. Triage Nursing notes reviewed. Vital Signs: reviewed Prior /Outside records reviewed: none Differential diagnosis: Differential includes cellulitis, lymphedema, systemic infection, abscess felt to be unlikely, other. Diagnostics, as interpreted by me: 12 lead ECG: none Cardiac Monitoring ordered: none Medical decision rules: none Imaging studies: Procedures: none. Critical care: none. HPI: See MDM above. PAST MEDICAL HISTORY: See Below PAST SURGICAL HISTORY: See Below SOCIAL HISTORY: See Below HOME MEDICATIONS: See Below ALLERGIES: See Below VITALS: See Below PHYSICAL EXAMINATION: CONSTITUTIONAL/VITAL SIGNS: Reviewed GENERAL: Non-toxic in appearance. INTEGUMENTARY: Warm, dry, and [place]. HEAD: Normocephalic. EYES: without scleral icterus. ENT/OROPHARYNX: clear and moist. RESPIRATORY: No increased work of breathing. Lungs clear. CARDIOVASCULAR: Regular rate. Regular rhythm. GI/ABDOMEN: Soft and nontender. . EXTREMITIES: Normal. See above. Right leg erythema, edema. NEUROLOGICAL: Intact without focal deficits. PSYCHIATRIC: Normal affect. MUSCULOSKELETAL: Normal. TRIAGE NURSING DOCUMENTATION REVIEWED. Past Med/Surg History Medical History Chronic kidney disease STAGE 2 DM type 2 (diabetes mellitus, type 2) History of asthma HTN (hypertension) Liver disease SCLEROSIS Peripheral neuropathy Spleen enlargement Thrombocytopenia Surgical History H/O dilation and curettage History of cataract surgery RT/LEFT History of hysteroscopy History of tooth extraction S/P cholecystectomy Family History Sister Cervical cancer Other No family history of adverse response to anesthesia Social History Smoking Status: Never smoker Second Hand Exposure: No; Hx Alcohol Use: No Hx Substance Use: No Preferred Language: Occitan Communication Ability: Effective Visual Impairment: No Limitations Hearing Ability: Normal Special Education Resource Room Teacher Required: No Beliefs That Will Affect Care: None Current Living Situation: Alone Feels Safe at Home: Yes Assistive Devices: Cane, Denture - Upper, Glasses and Walker Allergies Allergies Allergy/AdvReac Type Severity Reaction Status Date / Time Sulfa (Sulfonamide Allergy Intermediate SWELLING, Verified 03/17/22 10:39 Antibiotics) HIVES empagliflozin AdvReac Severe Vaginal Verified 03/17/22 10:39 [From Jardiance] irritation Home Meds Home Medications Medication Instructions Recorded Confirmed pravastatin 40 mg tablet 40 mg PO QAM 05/26/18 05/01/22 glimepiride 4 mg tablet 4 mg PO QAM 04/20/20 05/01/22 ramipril 5 mg capsule 5 mg PO QAM 04/20/20 05/01/22 ketoconazole 2 % shampoo 1 applic topical DAILY 05/01/22 05/01/22 nystatin 100,000 unit/gram topical 1 applic topical DAILY 05/01/22 05/01/22 powder triamcinolone acetonide 0.1 % 1 applic topical DAILY 05/01/22 05/01/22 topical cream Previous Rx's Medication Instructions Recorded insulin glargine 100 unit/mL (3 40 unit (0.4 mL) subcut BID #15 mL 04/25/20 mL) subcutaneous pen (Basaglar KwikPen U-100 Insulin) metformin 500 mg tablet,extended 500 mg PO DAILY #30 tabs 04/25/20 release 24 hr cephalexin 500 mg capsule 500 mg PO QID 7 days #28 caps 05/14/22 cephalexin 500 mg capsule 500 mg PO QID 7 days #28 caps 05/14/22 methylprednisolone 4 mg tablets in 4 mg PO DAILY #21 ea 05/14/22 a dose pack (Medrol (Abdifatah)) Results & Data (ED) Vital Signs Vital Signs - 24 hr 05/14/22 20:23 Temperature 37.1 C Temperature Source Temporal Artery Scan Pulse Rate 88 Respiratory Rate 18 Blood Pressure 177/75 H Blood Pressure Mean 109 Pulse Oximetry 96 Oxygen Delivery Method Room Air Sepsis Recent Fever Within 48 Hours Yes Sepsis New/Unexplained Change in Mental Status No Sepsis Action Taken by Nursing No Action Required Laboratory Data 05/14/22 20:45 05/14/22 20:45 Lab Results 05/14/22 05/14/22 Range/Units 20:45 20:45 WBC 9.62 (4.8-10.8) K/ul RBC 3.74 L (4.20-5.40) M/uL Hgb 12.0 (12.0-16.0) g/dl Hct 35.3 L (37.0-47.0) % MCV 94.4 (80.0-100.0) fL MCH 32.1 (25.0-34.0) pg MCHC 34.0 (32.0-36.0) g/dL RDW Std Deviation 50.2 H (36.4-46.3) fL RDW Coeff of Melissa 14.5 (11.5-14.5) % Plt Count 60 L (130-400) K/uL MPV 9.4 (9.4-12.4) fL Immature Gran % (Auto) 0.5 % Neut % (Auto) 80.6 % Lymph % (Auto) 11.3 % [place] % (Auto) 5.7 % Eos % (Auto) 1.6 % Baso % (Auto) 0.3 % Neut # (Auto) 7.75 H (1.40-6.50) K/uL Lymph # (Auto) 1.09 L (1.2-3.4) K/uL [place] # (Auto) 0.55 (0.11-0.59) K/uL Eos # (Auto) 0.15 (0-0.50) K/uL Baso # (Auto) 0.03 (0-0.2) K/uL Immature Gran # (Auto) 0.05 (0.01-0.20) K/uL Sodium 136 (136-145) mmol/L Potassium 4.1 (3.5-5.1) mmol/L Chloride 104 (98-107) mmol/L Carbon Dioxide 28 (21-32) mmol/L Anion Gap 4 (3-11) BUN 25 H (6-23) mg/dl Creatinine 1.00 (0.6-1.2) mg/dl Est Cr Clr Drug Dosing 83.1 ml/min Est GFR ( Amer) 69.4 ml/min Est GFR (Non-Af Amer) 59.9 ml/min BUN/Creatinine Ratio 25.0 H (10-20) Glucose 350 H* (70-99(Fasting)) mg/dl Calcium 8.2 L (8.5-10.1) mg/dl Total Bilirubin 2.0 H D (0.2-1.0) mg/dl AST 21 (13-39) U/L ALT 25 (7-52) U/L Alkaline Phosphatase 117 H (34-104) U/L Total Protein 6.5 (6.0-8.3) gm/dl Albumin 2.8 L (3.4-5.0) gm/dl Globulin 3.7 (2.5-4.0) gm/dl Albumin/Globulin Ratio 0.8 L (0.9-2) Discharge Plan Visit Data Chief Complaint: Leg Injury/Pain Stated Complaint: R FOOT/LEG SWELLING, PAINFUL, ED Provider: Hong Logan Discharge Problem: Cellulitis of right foot, Cellulitis of leg, right, Acute hyperglycemia Patient Disposition: Admitted As Inpatient Forms Stand Alone Forms: My [facility], Virtual Emergency Department, Important Visit Information Prescriptions Prescriptions: No Action pravastatin 40 mg tablet 40 mg PO QAM ramipril 5 mg capsule 5 mg PO QAM glimepiride 4 mg tablet 4 mg PO QAM insulin glargine [Basaglar KwikPen U-100 Insulin] 100 unit/mL (3 mL) insulin pen 40 unit subcut BID Qty: 15 0RF Rx Instructions: 40u AM 40u PM metformin 500 mg tablet extended release 24 hr 500 mg PO DAILY Qty: 30 0RF Label Comments: QAM ketoconazole 2 % shampoo 1 applic TOPICAL DAILY triamcinolone acetonide 0.1 % cream 1 applic TOPICAL DAILY nystatin 100,000 unit/gram powder 1 applic TOPICAL DAILY cephalexin 500 mg capsule 500 mg PO QID 7 Days Qty: 28 0RF methylprednisolone [Medrol (Abdifatah)] 4 mg tablets,dose pack 4 mg PO DAILY Qty: 21 0RF Rx Instructions: Per package instructions cephalexin 500 mg capsule 500 mg PO QID 7 Days Qty: 28 0RF Referrals Referrals: Jenaro Rollins MD [Primary Care Provider] -
[2022-05-15] MEDS ORDERED: GLUCOSE 40% GEL 15 GM TUBE PO PRN (00:10)
[2022-05-15] MEDS ORDERED: CARBOHYDRATES FOR HYPOGLYCEMIA PO PRN (00:10)
[2022-05-15] MEDS ORDERED: LANTUS PER UNIT CHARGE SQ STA ×2 (00:10→01:18)
[2022-05-15] MEDS ORDERED: GLUCOSE 10 TAB/TUBE PO PRN (00:10)
[2022-05-15] MEDS ORDERED: GLUCAGON FOR INJ 1 MG VIAL SQ PRN (00:10)
[2022-05-15] MEDS ORDERED: DEXTROSE 50% 50 ML SYRINGE IV PRN (00:10)
[2022-05-15] MEDS ORDERED: INSULIN ASPART PER UNIT SC STA (00:16)
--- NOTE | 2022-05-15 01:00 | History & Physical Report ---
Date of Service May 15, 2022 Assessment & Plan (1) Cellulitis of leg, right: Plan: Underlying chronic lymphedema Rule out pulmonary hypertension given pulm congestion on CXR weight gain and untreated JUAN Failed outpatient therapy Rule out bony injury given pain complaints No sepsis for now hypertension, slightly elevated hyperlipidemia on statin Rx DM 2 insulin requiring, patient markedly hyperglycemic given recent outpatient steroid course for dermatitis; hemoglobin A1c of 6.07 February 2022 hx NAFLD cirrhosis, no overt decompensation chronic thrombocytopenia GMF Doxycycline for MRSA coverage important given hyperglycemia Add antipseudomonal coverage if without improvement Local measures for cellulitis Follow official plain x-ray results Lasix 1 dose for possible fluid retention 2 L daily fluid restriction for now TTE Re: Weight gain, fluid retention rule out right-sided heart failure/pulmonary hypertension given untreated JUAN May need maintenance diuretic Rx on discharge pending TTE results. Outpatient sleep study once patient able to schedule Basal bolus insulin, ISS BG goal 1 10-1 40, carb count coverage, update hemoglobin A1c DVT prophylaxis with SCDs thrombocytopenia Full code Text document was generated using IT[employer] voice recognition software. It may contain grammatical or spelling errors. Kindly contact undersigned for clarification of any documentation item in question. History of Present Illness Chief Complaint: Right leg pain swelling Primary Care Provider: Jenaro Rollins MD History obtained from patient and records. Medical history significant for hypertension, hyperlipidemia, chronic lymphedema, JUAN, DM 2 insulin requiring, NAFLD cirrhosis, chronic thrombocytopenia Last confinement April 2020 for facial cellulitis. Patient seen at the ER 2 weeks ago for a rash attributed to candidal infection. Rash improved with discharge prescriptions as per patient. 3 days ago, patient noted increasing right foot and lower leg redness and swelling. No recollection of trauma. No fever, no chills, no chest pain, no SOB. Patient thinks she is retaining fluid and gaining weight. Increased abdominal distention without abdominal pain. Patient seen at the ER yesterday morning. Patient discharged on Keflex course. No improvement with a few doses of Keflex at home. Patient returned to ER for evaluation. MEDICAL HISTORY: As above. SURGERIES: She has had gynecologic procedures, cholecystectomy, cataract surgeries FAMILY HISTORY: Hypertension, cirrhosis secondary to fatty liver disease, throat cancer, Parkinson's disease PERSONAL SOCIAL HISTORY: Nonsmoker, no chronic intake of alcoholic beverages. Disabled. Allergies Allergy/AdvReac Type Severity Reaction Status Date / Time Sulfa (Sulfonamide Allergy Intermediate SWELLING, Verified 03/17/22 10:39 Antibiotics) HIVES empagliflozin AdvReac Severe Vaginal Verified 03/17/22 10:39 [From Anastacia] irritation Home Medications Medication Instructions Recorded Confirmed Type pravastatin 40 mg tablet 40 mg PO QAM 05/26/18 05/14/22 History glimepiride 4 mg tablet 4 mg PO QAM 04/20/20 05/14/22 History ramipril 5 mg capsule 5 mg PO QAM 04/20/20 05/14/22 History insulin glargine 100 unit/mL (3 40 unit (0.4 mL) subcut BID #15 mL 04/25/20 05/14/22 Rx mL) subcutaneous pen (Basaglar KwikPen U-100 Insulin) ketoconazole 2 % shampoo 1 applic topical DAILY 05/01/22 05/14/22 History triamcinolone acetonide 0.1 % 1 applic topical DAILY 05/01/22 05/14/22 History topical cream cephalexin 500 mg capsule 500 mg PO QID 7 days #28 caps 05/14/22 05/14/22 Rx metformin 500 mg tablet,extended 1,000 mg PO DAILY 05/14/22 05/14/22 History release 24 hr methylprednisolone 4 mg tablets in 4 mg PO DAILY #21 ea 05/14/22 05/14/22 Rx a dose pack (Medrol (Abdifatah)) Past Med/Surg History Medical History Chronic kidney disease STAGE 2 DM type 2 (diabetes mellitus, type 2) History of asthma HTN (hypertension) Liver disease SCLEROSIS Peripheral neuropathy Spleen enlargement Thrombocytopenia Surgical History H/O dilation and curettage History of cataract surgery RT/LEFT History of hysteroscopy History of tooth extraction S/P cholecystectomy Family History Sister Cervical cancer Other No family history of adverse response to anesthesia Social History Smoking Status: Never smoker Second Hand Exposure: No; Hx Alcohol Use: No Hx Substance Use: No Preferred Language: Scottish Communication Ability: Effective Visual Impairment: No Limitations Hearing Ability: Normal Wheel Assembler Required: No Beliefs That Will Affect Care: None Current Living Situation: Alone Feels Safe at Home: Yes Safety Concerns: Feels Safe At This Time Assistive Devices: Cane, Walker and Wheelchair Review of Systems Review of Systems: As per HPI, all other systems reviewed and negative Physical Exam Physical Exam: GENERAL: Comfortable, morbidly obese, pleasant, no respiratory distress SKIN: Normal color, warm HEENT: [place] palpebral conjunctivae, no ptosis, dry buccal mucosa NECK : Supple, short neck, no tenderness CHEST : Decreased breath sounds, no tenderness HEART : RRR, no obvious murmurs ABDOMEN: distention, nontender EXTREMITIES : Bilateral LE swelling, right lower leg/foot induration with minimal tenderness, no other conspicuous deformities noted NEUROLOGIC : Coherent, no facial asymmetry, no other gross focality Results & Data Results & Data ([facility]) Vital Signs (Past 12 Hours) Vital Signs Temp Pulse Pulse Resp BP BP Pulse Ox 05/14/22 23:26 68 20 136/64 96 05/14/22 20:23 37.1 C 88 18 177/75 H 96 O2 Del Method 05/14/22 23:26 Room Air 05/14/22 20:23 Room Air Laboratory Results Laboratory Results WBC 9.62 K/ul (4.8-10.8) 05/14/22 20:45 RBC 3.74 M/uL (4.20-5.40) L 05/14/22 20:45 Hgb 12.0 g/dl (12.0-16.0) 05/14/22 20:45 Hct 35.3 % (37.0-47.0) L 05/14/22 20:45 MCV 94.4 fL (80.0-100.0) 05/14/22 20:45 MCH 32.1 pg (25.0-34.0) 05/14/22 20:45 MCHC 34.0 g/dL (32.0-36.0) 05/14/22 20:45 RDW Std Deviation 50.2 fL (36.4-46.3) H 05/14/22 20:45 RDW Coeff of Melissa 14.5 % (11.5-14.5) 05/14/22 20:45 Plt Count 60 K/uL (130-400) L 05/14/22 20:45 MPV 9.4 fL (9.4-12.4) 05/14/22 20:45 Immature Gran % (Auto) 0.5 % 05/14/22 20:45 Neut % (Auto) 80.6 % 05/14/22 20:45 Lymph % (Auto) 11.3 % 05/14/22 20:45 [place] % (Auto) 5.7 % 05/14/22 20:45 Eos % (Auto) 1.6 % 05/14/22 20:45 Baso % (Auto) 0.3 % 05/14/22 20:45 Neut # (Auto) 7.75 K/uL (1.40-6.50) H 05/14/22 20:45 Lymph # (Auto) 1.09 K/uL (1.2-3.4) L 05/14/22 20:45 [place] # (Auto) 0.55 K/uL (0.11-0.59) 05/14/22 20:45 Eos # (Auto) 0.15 K/uL (0-0.50) 05/14/22 20:45 Baso # (Auto) 0.03 K/uL (0-0.2) 05/14/22 20:45 Immature Gran # (Auto) 0.05 K/uL (0.01-0.20) 05/14/22 20:45 Sodium 136 mmol/L (136-145) 05/14/22 20:45 Potassium 4.1 mmol/L (3.5-5.1) 05/14/22 20:45 Chloride 104 mmol/L (98-107) 05/14/22 20:45 Carbon Dioxide 28 mmol/L (21-32) 05/14/22 20:45 Anion Gap 4 (3-11) 05/14/22 20:45 BUN 25 mg/dl (6-23) H 05/14/22 20:45 Creatinine 1.00 mg/dl (0.6-1.2) 05/14/22 20:45 Est Cr Clr Drug Dosing 83.1 ml/min 05/14/22 20:45 Est GFR ( Amer) 69.4 ml/min 05/14/22 20:45 Est GFR (Non-Af Amer) 59.9 ml/min 05/14/22 20:45 BUN/Creatinine Ratio 25.0 (10-20) H 05/14/22 20:45 Glucose 350 mg/dl (70-99(Fasting)) H* 05/14/22 20:45 Calcium 8.2 mg/dl (8.5-10.1) L 05/14/22 20:45 Total Bilirubin 2.0 mg/dl (0.2-1.0) H D 05/14/22 20:45 AST 21 U/L (13-39) 05/14/22 20:45 ALT 25 U/L (7-52) 05/14/22 20:45 Alkaline Phosphatase 117 U/L (34-104) H 05/14/22 20:45 Total Protein 6.5 gm/dl (6.0-8.3) 05/14/22 20:45 Albumin 2.8 gm/dl (3.4-5.0) L 05/14/22 20:45 Globulin 3.7 gm/dl (2.5-4.0) 05/14/22 20:45 Albumin/Globulin Ratio 0.8 (0.9-2) L 05/14/22 20:45 SARS-CoV-2, RNA, NAAT NEGATIVE (NEGATIVE) 05/14/22 23:33 Diagnostic Findings Chest x-ray as per my interpretation: Cardiomegaly, congestion US ABDOMEN LIMITED initial read: No visible ascites all 4 quadrants. US VENOUS RIGHT LOWER EXTREMITY initial read: No evidence of DVT.
[2022-05-15] MEDS ORDERED: oxyCODONE HCL IR 5 MG TAB (IMMEDIATE RELEASE) PO PRN (04:10)
[2022-05-15] MEDS ORDERED: FUROSEMIDE INJ 20 MG/2 ML VIAL IV ONE (04:24)
[2022-05-15] MEDS ORDERED: MICONAZOLE NITRATE POWDER 43 GM EXT PRN (04:26)
[2022-05-15 06:33] LABS: Basophils # (auto) 0.04 K/uL (0-0.2); Basophils % (auto) 0.5 %; Eosinophils # (auto) 0.22 K/uL (0-0.50); Eosinophils % (auto) 2.8 %; Hematocrit (blood only) 32.5 % (37.0-47.0); Hemoglobin 11.1 g/dl (12.0-16.0); Immature Granulocytes # (auto) 0.02 K/uL (0.01-0.20); Immature Granulocytes % (auto) 0.3 %; Lymphocytes # (auto) 1.25 K/uL (1.2-3.4); Lymphocytes % (auto) 15.8 %; Mean Corpuscular Hemoglobin 32.3 pg (25.0-34.0); Mean Corpuscular Hgb Conc 34.2 g/dL (32.0-36.0); Mean Corpuscular Volume 94.5 fL (80.0-100.0); Mean Platelet Volume 9.4 fL (9.4-12.4); Monocytes # (auto) 0.64 K/uL (0.11-0.59); Monocytes % (auto) 8.1 %; Neutrophils # (auto) 5.76 K/uL (1.40-6.50); Neutrophils % (auto) 72.5 %; Platelet Count 53 K/uL (130-400); RDW Coefficient of Variation 14.6 % (11.5-14.5); RDW Standard Deviation 50.8 fL (36.4-46.3); Red Blood Count 3.44 M/uL (4.20-5.40); White Blood Count 7.93 K/ul (4.8-10.8)
[2022-05-15 06:45] LABS: BUN Creatinine Ratio 21.3 (10-20); Creatinine Clr Calc Pharmacy 88.3 ml/min; Est GFR (African American) 74.8 ml/min; Est GFR (Non-African American) 64.6 ml/min; Potassium 3.7 mmol/L (3.5-5.1)
--- NOTE | 2022-05-15 07:34 | Ultrasound Report ---
RIGHT LOWER EXTREMITY VENOUS DOPPLER HISTORY: Right leg swelling COMPARISON STUDY: None. FINDINGS: There is normal compressibility, flow, and augmentation within the right lower extremity de ep venous system. IMPRESSION: No DVT within the right lower extremity ACT 112: Negative or not required by law. Electronically signed by: Gordon Beltran M.D. 05/15/2022 7:33 AM
--- NOTE | 2022-05-15 07:35 | Ultrasound Report ---
US abdomen ltd ascites CLINICAL HISTORY: abd distention COMPARISON STUDY: Abdomen and pelvis CT 03/06/2021. FINDINGS: No ascites. IMPRESSION: No ascites. ACT 112: Negative or not required by law. Electronically signed by: Gordon Beltran M.D. 05/15/2022 7:33 AM
[2022-05-15] MEDS: INSULIN ASPART PER UNIT SC SCH ×4 (08:29→22:26)
[2022-05-15] MEDS: LANTUS PER UNIT CHARGE SQ SCH ×2 (08:30→22:26)
--- NOTE | 2022-05-15 09:04 | XRay Report ---
XR tibia fibula RT 2V CLINICAL HISTORY: pain COMPARISON: Right tibia and fibula radiographs May 21, 2017. FINDINGS: No fracture within the right tibia or fibula is noted. Subtle sclerosis within the distal shaft of the right tibia is chronic. This is unchanged. No evidence for acute osteomyelitis. Right lo wer leg soft tissue swelling is noted. There is posterior calcaneal spurring. A calcification injecti on the distal Achilles is noted. No evidence for a significant right knee joint effusion. IMPRESSION: 1. No acute osseous abnormality within the right tibia or fibula. 2. Right lower leg soft tissue swelling. ACT 112: Negative or not required by law. Electronically signed by: Junior Isaacs M.D. 05/15/2022 9:03 AM
--- NOTE | 2022-05-15 09:07 | XRay Report ---
XR foot RT min 3V routine CLINICAL HISTORY: Right foot pain. COMPARISON: None FINDINGS: No acute fracture within the right foot is identified. There is no evidence for acute oste omyelitis. Lateral view demonstrates pronounced dorsal soft tissue swelling. Posterior and plantar ca lcaneal spurring is noted. Calcification projecting of the distal Achilles. Mild degenerative changes within the right foot are noted at multiple articulations. IMPRESSION: 1. No acute fracture or dislocation within the right foot. 2. Dorsal foot soft tissue swelling. ACT 112: Negative or not required by law. Electronically signed by: Junior Isaacs M.D. 05/15/2022 9:05 AM
--- NOTE | 2022-05-15 09:17 | XRay Report ---
XR chest 1V portable CLINICAL HISTORY: weight gain COMPARISON STUDY: Chest radiograph May 26, 2018. FINDINGS: No pneumothorax or pleural effusion is noted. Cardiomegaly is unchanged. Interstitial thick ening has developed. There is no consolidation to suggest pneumonia. IMPRESSION: Cardiomegaly. Interval development of interstitial thickening consistent with mild pulmo nary edema. ACT 112: Negative or not required by law. Electronically signed by: Junior Isaacs M.D. 05/15/2022 9:15 AM
[2022-05-15] MEDS: ENALAPRIL MALEATE 10 MG TAB PO SCH (09:43)
[2022-05-15] MEDS: DOXYCYCLINE HYCLATE 100 MG CAP PO SCH ×2 (09:43→22:21)
[2022-05-15] MEDS: ACETAMINOPHEN 500 MG TAB PO PRN (12:22)
[2022-05-15] MEDS ORDERED: KETOROLAC TROMETHAMINE 15 MG/ML VIAL IV PRN (13:52)
[2022-05-15] MEDS: CEFEPIME 2,000 MG in SYRINGE 0 ML IV SCH (15:51)
--- NOTE | 2022-05-15 16:37 | Hospitalist Progress Note ---
Date of Service May 15, 2022 Assessment & Plan (1) Cellulitis of right foot: Plan 61-year-old lady with PMH of HTN, HLD, chronic lymphedema, JUAN, DM 2 insulin requiring, NAFLD cirrhosis, chronic thrombocytopenia presented to the ED 05/14 with complaint of increasing right foot and lower leg redness and swelling, no recollection of trauma, denied fever or chills. No improvement with Keflex at home. She is being managed for the following: RLE cellulitis Underlying chronic lymphedema Underlying chronic lymphedema, presents with few days of increasing right foot and lower leg redness and swelling, no fever. Failed outpatient therapy. No sepsis at presentation. Right foot x-ray and right tibia/fibula x-ray with no acute fracture or dislocation. Dorsal foot with soft tissue swelling. RLE US venous Doppler: Negative for DVT. Patient is started on doxycycline 05/15, continue. Added cefepime 05/15. [place] fluid restriction 2 L daily. Local wound care. Pain management. Labs in AM. Mild pulmonary edema: Present on admitting CXR, rule out pulmonary hypertension given pulmonary congestion/weight gain and untreated JUAN. Follow-up echo. OP sleep study. Other chronic medical conditions: HTN, HLD, DM2, NAFLD cirrhosis, chronic, cytopenia --- continue with/resume home meds as an when able. Sliding scale insulin while in hospital. DVT prophylaxis: SCDs, thrombocytopenia Full code Admission and Anticipated Discharge Date Admission Date: May 15, 2022 Subjective Patient seen and examined at bedside as a follow-up of RLE cellulitis. Patient was lying in bed, on room air, NAD, reports not being able to sleep/exhausted through the night, reports RLE pain fairly bearable with pain medication, has BLE lymphedema chronic, reports eating okay and moving bowels okay, denies any fever or chills or sore throat or cough or chest pain or belly pain or other review of symptoms. Physical Exam Physical Exam: GENERAL: Alert and oriented x3. NAD, on RA. Obese class III HEENT: No pallor, no icterus. Pupils equal, round and reactive to light. Oral mucosa moist. NECK: No JVD, no neck masses. HEART: S1 and S2 heard. Regular rate and rhythm. No murmur, no gallop. RESPIRATORY SYSTEM: Normal AP diameter. No accessory muscle use. No wheezing, no crackles. ABDOMEN: Soft, bowel sounds present, nontender, no distention. CENTRAL NERVOUS SYSTEM: No facial droop. Speech is clear. Obeys simple commands. Moves extremities. EXTREMITIES: BLE lymphedema, RLE w/ erythema, warmth, swelling, tender. Results & Data Results & Data ([facility]) Vital Signs (Past 12 Hours) Vital Signs Temp Pulse Resp BP BP Pulse Ox O2 Del Method 05/15/22 14:19 36.7 C 72 20 129/74 93 Room Air 05/15/22 11:58 36.4 C L 74 20 132/72 94 Room Air 05/15/22 07:50 36.7 C 66 20 128/75 98 Room Air
[2022-05-16] MEDS: CEFEPIME 2,000 MG in SYRINGE 0 ML IV SCH ×2 (01:16→13:59)
[2022-05-16] MEDS: LANTUS PER UNIT CHARGE SQ SCH ×2 (08:05→21:09)
[2022-05-16] MEDS: INSULIN ASPART PER UNIT SC SCH ×4 (08:05→21:08)
[2022-05-16] MEDS: DOXYCYCLINE HYCLATE 100 MG CAP PO SCH ×2 (08:06→21:01)
[2022-05-16] MEDS: ENALAPRIL MALEATE 10 MG TAB PO SCH (08:06)
[2022-05-16 08:17] LABS: Hematocrit (blood only) 34.7 % (37.0-47.0); Hemoglobin 12.1 g/dl (12.0-16.0); Mean Corpuscular Hemoglobin 32.3 pg (25.0-34.0); Mean Corpuscular Hgb Conc 34.9 g/dL (32.0-36.0); Mean Corpuscular Volume 92.5 fL (80.0-100.0); Mean Platelet Volume 9.4 fL (9.4-12.4); Platelet Count 70 K/uL (130-400); RDW Coefficient of Variation 14.4 % (11.5-14.5); RDW Standard Deviation 49.4 fL (36.4-46.3); Red Blood Count 3.75 M/uL (4.20-5.40); White Blood Count 7.36 K/ul (4.8-10.8)
[2022-05-16 08:18] LABS: BUN Creatinine Ratio 24.5 (10-20); Calcium 8.1 mg/dl (8.5-10.1); Creatinine Clr Calc Pharmacy 75.5 ml/min; Est GFR (African American) 61.9 ml/min; Est GFR (Non-African American) 53.4 ml/min; Magnesium 1.7 mg/dl (1.7-2.4); Potassium 3.8 mmol/L (3.5-5.1)
--- NOTE | 2022-05-16 15:42 | Hospitalist Progress Note ---
Date of Service May 16, 2022 Assessment & Plan (1) Cellulitis of right foot: Plan 61-year-old lady with PMH of HTN, HLD, chronic lymphedema, JUAN, DM 2 insulin requiring, NAFLD cirrhosis, chronic thrombocytopenia presented to the ED 05/14 with complaint of increasing right foot and lower leg redness and swelling, no recollection of trauma, denied fever or chills. No improvement with Keflex at home. She is being managed for the following: RLE cellulitis Underlying chronic lymphedema Underlying chronic lymphedema, presents with few days of increasing right foot and lower leg redness and swelling, no fever. Failed outpatient therapy. No sepsis at presentation. Right foot x-ray and right tibia/fibula x-ray with no acute fracture or dislocation. Dorsal foot with soft tissue swelling. RLE US venous Doppler: Negative for DVT. Patient is started on doxycycline 05/15, continue. Added cefepime 05/15. [place] fluid restriction 2 L daily. Local wound care. Pain management. Labs in AM. Acute HFrEF, likely new diagnosis: OP chart review w/ no diagnosis of HF. Pt not on water pill as OP; OP ECHO on 12/23/2020 w/ mild concentric LVH, EF 55-59%, LV wall motion/cavity size normal. get tsh. iv lasix 20 mg today, cardio consult for new HF diagnosis. ECHO and CXR this admission - see below. Mild pulmonary edema: Present on admitting CXR, rule out pulmonary hypertension given pulmonary congestion/weight gain and untreated JUAN. 05/15 ECHO w/ EF 60- 65%, mild concentric LVH, grade II diastolic dysfunction. OP sleep study. Other chronic medical conditions: HTN, HLD, DM2, NAFLD cirrhosis, chronic, cytopenia --- continue with/resume home meds as an when able. Sliding scale insulin while in hospital. DVT prophylaxis: SCDs, thrombocytopenia Full code Admission and Anticipated Discharge Date Admission Date: May 15, 2022 Subjective Patient seen and examined at bedside as a follow-up of RLE cellulitis. Patient was lying in bed, on room air, NAD, reports feeling tired and weak today, reports RLE pain / swelling getting better, has chronic BLE lymphedema, reports eating okay and moving bowels okay, denies any fever or chills or sore throat or cough or chest pain or belly pain or other review of symptoms. Physical Exam Physical Exam: GENERAL: Alert and oriented x3. NAD, on RA. Obese class III HEENT: No pallor, no icterus. Pupils equal, round and reactive to light. Oral mucosa moist. NECK: No JVD, no neck masses. HEART: S1 and S2 heard. Regular rate and rhythm. + murmur, no gallop. RESPIRATORY SYSTEM: Normal AP diameter. No accessory muscle use. No wheezing, no crackles. ABDOMEN: Soft, bowel sounds present, nontender, no distention. CENTRAL NERVOUS SYSTEM: No facial droop. Speech is clear. Obeys simple commands. Moves extremities. EXTREMITIES: BLE lymphedema, RLE w/ erythema, warmth, swelling, tender. ---> improving. Results & Data Results & Data ([facility]) Vital Signs (Past 12 Hours) Vital Signs Temp Pulse Resp BP BP Pulse Ox O2 Del Method 05/16/22 15:02 37.1 C 75 18 125/73 94 Room Air 05/16/22 11:17 36.8 C 78 20 122/68 96 Room Air 05/16/22 07:25 36.6 C 73 18 126/64 93 Room Air 05/16/22 04:24 36.9 C 69 18 126/69 98 Room Air
[2022-05-16] MEDS ORDERED: FUROSEMIDE INJ 20 MG/2 ML VIAL IV ONE (15:47)
[2022-05-17] MEDS: CEFEPIME 2,000 MG in SYRINGE 0 ML IV SCH ×2 (01:54→14:06)
--- NOTE | 2022-05-17 06:23 | Electrocardiogram Report ---
Test Reason : Blood Pressure : / mmHG Vent. Rate : 077 BPM Atrial Rate : 077 BPM P-R Int : 184 ms QRS Dur : 134 ms QT Int : 424 ms P-R-T Axes : 046 123 037 degrees QTc Int : 479 ms Normal sinus rhythm Right bundle branch block Abnormal ECG When compared with ECG of 01-MAY-2022 09:05, No significant change was found Confirmed by Ferny Menard ([id number]) on 05/17/2022 6:23:13 AM Referred By: REFERRED SELF Confirmed By:Ferny Menard
[2022-05-17 07:53] LABS: Hematocrit (blood only) 36.7 % (37.0-47.0); Hemoglobin 12.4 g/dl (12.0-16.0); Mean Corpuscular Hemoglobin 31.8 pg (25.0-34.0); Mean Corpuscular Hgb Conc 33.8 g/dL (32.0-36.0); Mean Corpuscular Volume 94.1 fL (80.0-100.0); Mean Platelet Volume 8.9 fL (9.4-12.4); Platelet Count 64 K/uL (130-400); RDW Coefficient of Variation 14.4 % (11.5-14.5); RDW Standard Deviation 49.4 fL (36.4-46.3); White Blood Count 8.02 K/ul (4.8-10.8)
[2022-05-17] MEDS: INSULIN ASPART PER UNIT SC SCH ×4 (07:57→21:26)
[2022-05-17] MEDS: LANTUS PER UNIT CHARGE SQ SCH ×2 (07:58→21:26)
[2022-05-17] MEDS: DOXYCYCLINE HYCLATE 100 MG CAP PO SCH ×2 (08:04→21:25)
[2022-05-17] MEDS: ENALAPRIL MALEATE 10 MG TAB PO SCH (08:05)
[2022-05-17 08:07] LABS: BUN Creatinine Ratio 26.5 (10-20); Calcium 8.4 mg/dl (8.5-10.1); Est GFR (African American) 59.9 ml/min; Est GFR (Non-African American) 51.7 ml/min; Magnesium 1.8 mg/dl (1.7-2.4); Potassium 4.2 mmol/L (3.5-5.1)
[2022-05-17] MEDS: ACETAMINOPHEN 500 MG TAB PO PRN (08:18)
--- NOTE | 2022-05-17 09:54 | Cardiology Consultation ---
Date of Consultation May 17, 2022 Assessment & Plan (1) Cellulitis of leg, right: (2) HTN (hypertension): (3) Diastolic dysfunction: (4) Obesity: (5) DM type 2 (diabetes mellitus, type 2): Plan Apart from her LE edema, R>L, does not examine as volume overloaded Significant chronic venous stasis changes as well agree she would benefit from PO diuretics, lasix 20mg po daily will also start evidence based beta kassandra to increase diastolic filling time, metoprolol succinate 12.5mg daily may need to decrease enalapril dose to support BP with this addition, follow cellulitis treatment as per primary team will need to follow up as an outpatient upon discharge for ongoing treatment, likely in 1 month at the [facility] office History of Present Illness Reason for Consultation: LE edema Requesting Physician: ONEIDA Attending Physician: Michael Hoffman MD History of Present Illness Ms. Lewis is a very pleasant 61-year-old woman who presented to [facility] on 05/14/2022 with complaints of a right lower extremity rash. The patient states that she has been having a rash over her body for the last several months. She states that a few days prior to presentation her right foot began to swell and became red. She denies any recent trauma to her legs. She notes that her legs are edematous at baseline but the right leg is not significantly greater than the left. She does carry a history of chronic lymphedema. Cardiac velez though, she denies any chest pain, shortness of breath, palpitations, lightheadedness or dizziness. She states that she is not very active at baseline. Allergies Allergy/AdvReac Type Severity Reaction Status Date / Time Sulfa (Sulfonamide Allergy Intermediate SWELLING, Verified 03/17/22 10:39 Antibiotics) HIVES empagliflozin AdvReac Severe Vaginal Verified 03/17/22 10:39 [From Jardiance] irritation Home Medications Medication Instructions Recorded Confirmed Type pravastatin 40 mg tablet 40 mg PO QAM 05/26/18 05/14/22 History glimepiride 4 mg tablet 4 mg PO QAM 04/20/20 05/14/22 History ramipril 5 mg capsule 5 mg PO QAM 04/20/20 05/14/22 History insulin glargine 100 unit/mL (3 40 unit (0.4 mL) subcut BID #15 mL 04/25/20 05/14/22 Rx mL) subcutaneous pen (Basaglar KwikPen U-100 Insulin) ketoconazole 2 % shampoo 1 applic topical DAILY 05/01/22 05/14/22 History triamcinolone acetonide 0.1 % 1 applic topical DAILY 05/01/22 05/14/22 History topical cream cephalexin 500 mg capsule 500 mg PO QID 7 days #28 caps 05/14/22 05/14/22 Rx metformin 500 mg tablet,extended 1,000 mg PO DAILY 05/14/22 05/14/22 History release 24 hr methylprednisolone 4 mg tablets in 4 mg PO DAILY #21 ea 05/14/22 05/14/22 Rx a dose pack (Medrol (Abdifatah)) Patient History Medical History Chronic kidney disease STAGE 2 DM type 2 (diabetes mellitus, type 2) History of asthma HTN (hypertension) Liver disease SCLEROSIS Peripheral neuropathy Spleen enlargement Thrombocytopenia Surgical History H/O dilation and curettage History of cataract surgery RT/LEFT History of hysteroscopy History of tooth extraction S/P cholecystectomy Family History Sister Cervical cancer Other No family history of adverse response to anesthesia Social History Smoking Status: Never smoker Second Hand Exposure: No; Hx Alcohol Use: No Hx Substance Use: No Preferred Language: [place] Communication Ability: Effective Visual Impairment: No Limitations Hearing Ability: Normal Disulfurizer Tender Required: No Beliefs That Will Affect Care: None Current Living Situation: Alone Feels Safe at Home: Yes Safety Concerns: Feels Safe At This Time Assistive Devices: Cane, Walker and Wheelchair Review of Systems Review of Systems: All systems reviewed & are unremarkable except as noted in HPI & below Physical Exam Physical Exam: General: Awake, alert and oriented x 3. No acute distress. HEENT: Normocephalic, atraumatic. Pupils equal, round and reactive to light and accommodation. Extraocular muscles are intact. Anicteric sclera. Moist mucous membranes. Neck: No JVD. No bruit. Cardiovascular: Regular. Positive S-4. Normal S-1 and S-2. No S-3. No murmurs or rubs. Pulmonary: Clear to auscultation B/L. No rales, rhonchi or wheezing Abdomen: Bowel sounds x 4, soft. No rebound, guarding or tenderness. No organomegaly. Extremities: No clubbing, cyanosis or edema. +2 pedal pulses bilaterally. Skin: Warm and dry. Results & Data ([facility]) Vital Signs (Past 12 Hours) Vital Signs Temp Pulse Resp BP BP Pulse Ox O2 Del Method 05/17/22 07:31 36.6 C 71 20 124/73 94 Room Air 05/17/22 04:20 36.9 C 87 20 111/55 L 95 Room Air 05/16/22 23:42 36.9 C 77 22 129/73 93 Room Air
--- NOTE | 2022-05-17 16:06 | Hospitalist Progress Note ---
Date of Service May 17, 2022 Assessment & Plan (1) Cellulitis of right foot: Plan 61-year-old lady with PMH of HTN, HLD, chronic lymphedema, JUAN, DM 2 insulin requiring, NAFLD cirrhosis, chronic thrombocytopenia presented to the ED 05/14 with complaint of increasing right foot and lower leg redness and swelling, no recollection of trauma, denied fever or chills. No improvement with Keflex at home. She is being managed for the following: RLE cellulitis Underlying chronic lymphedema Underlying chronic lymphedema, presents with few days of increasing right foot and lower leg redness and swelling, no fever. Failed outpatient therapy. No sepsis at presentation. Right foot x-ray and right tibia/fibula x-ray with no acute fracture or dislocation. Dorsal foot with soft tissue swelling. RLE US venous Doppler: Negative for DVT. Patient is started on doxycycline 05/15, continue. Added cefepime 05/15. [place] fluid restriction 2 L daily. Local wound care-no skin break wounds or improving Advised to keep the legs elevated Acute HFrEF, likely new diagnosis: OP chart review w/ no diagnosis of HF. Pt not on water pill as OP; OP ECHO on 12/23/2020 w/ mild concentric LVH, EF 55-59%, LV wall motion/cavity size normal. get tsh. iv lasix 20 mg today, cardio consult for new HF diagnosis. ECHO and CXR this admission - see below. Appreciate cardiology input and recommendation Lisinopril doses will be decreased and added Lasix Will a follow-up in heart failure clinic in 1 month Mild pulmonary edema: Present on admitting CXR, rule out pulmonary hypertension given pulmonary congestion/weight gain and untreated JUAN. 05/15 ECHO w/ EF 60-65%, mild concentric LVH, grade II diastolic dysfunction. OP sleep study. Other chronic medical conditions: HTN, HLD, DM2, NAFLD cirrhosis, chronic, cytopenia --- continue with/resume home meds as an when able. Sliding scale insulin while in hospital. DVT prophylaxis: SCDs, thrombocytopenia Full code Admission and Anticipated Discharge Date Admission Date: May 15, 2022 Subjective 05/17/2022 The patient was seen and examined in medical telemetry unit She has been complaining of pain and swelling of the right more than the left lower extremity Also has redness involving the right lower extremity No fever and or chills but complains to have some pain in the right leg mainly Review of Systems Review of Systems: All systems reviewed and are unremarkable except as noted below Musculoskeletal: Bilateral leg swelling with pain in the right leg more than the left Physical Exam Physical Exam: Lying in bed comfortably Constitutional: well developed, well nourished, + ill appearing and + morbidly obese Eyes: PERRL, conjunctivae normal, anicteric sclerae ENMT: external ear and nose normal, oropharynx normal Neck: trachea midline, no thyromegaly Respiratory: no respiratory distress Auscultation: + diminished lung sounds and + crackles (Occasional crackles at the bases) Cardiovascular: Rate/Rhythm: regular rate and regular rhythm; not tachycardic Heart Sounds: normal S1 and normal S2; no murmur Extremities: + edema (2+ edema on the left and 2-3+ edema on the right) Gastrointestinal (Abdomen): Inspection/Auscultation: + abdomen distended and normal bowel sounds Percussion/Palpation: abdomen soft; abdomen nontender Musculoskeletal: No acute arthritis involving any joint, inflamed right leg had mostly right foot with adjoining edema and tenderness with warmth Neurologic: Alert, awake and oriented x3. No focal sensory or motor deficit appreciated Psychiatric: A+Ox3, euthymic affect Lymphatic: no cervical or axillary lymphadenopathy Bilateral lymphadenopathy the lower extremities Results & Data Results & Data ([facility]) Vital Signs (Past 12 Hours) Vital Signs Temp Pulse Resp BP BP Pulse Ox O2 Del Method 05/17/22 15:19 37.1 C 71 20 118/71 96 Room Air 05/17/22 11:07 36.6 C 70 20 118/68 93 Room Air 05/17/22 07:31 36.6 C 71 20 124/73 94 Room Air 05/17/22 04:20 36.9 C 87 20 111/55 L 95 Room Air Laboratory Results Short CBC 05/17/22 Range/Units 07:25 WBC 8.02 (4.8-10.8) K/ul Hgb 12.4 (12.0-16.0) g/dl Hct 36.7 L (37.0-47.0) % Plt Count 64 L (130-400) K/uL BMP 05/17/22 07:25 Sodium 140 Potassium 4.2 Chloride 105 Carbon Dioxide 29 BUN 30 H Creatinine 1.13 Glucose 97 Calcium 8.4 L Medications Administered Current Inpatient Medications Acetaminophen (Acetaminophen 500 Mg Tab) 500 mg PO Q6H PRN PRN Reason: pain/fever Stop: 06/14/22 04:09 Last Admin: 05/17/22 08:18 Dose: 500 mg Dextrose (Dextrose 50% 50 Ml Syringe) 25 - 50 ml IV UD PRN; Protocol PRN Reason: Hypoglycemia Protocol Stop: 06/14/22 00:09 Doxycycline Hyclate (Doxycycline Hyclate 100 Mg Cap) 100 mg PO BID [facility] Stop: 05/22/22 08:59 Last Admin: 05/17/22 08:04 Dose: 100 mg Enalapril Maleate (Enalapril Maleate 5 Mg Tab) 5 mg PO DAILY [facility] Stop: 06/17/22 08:59 Glucagon (Glucagon For Inj 1 Mg Vial) 1 mg SQ UD PRN; Protocol PRN Reason: Hypoglycemia Protocol Stop: 06/14/22 00:09 Glucose (Glucose 40% Gel 15 Gm Tube) 15 - 30 gm PO UD PRN; Protocol PRN Reason: Hypoglycemia Protocol Stop: 06/14/22 00:09 Glucose (Glucose 10 Tab/Tube) 4 - 8 tab PO UD PRN; Protocol PRN Reason: Hypoglycemia Treatment Stop: 06/14/22 00:09 Cefepime HCl 2,000 mg/ Syringe 20 mls @ 5 mls/min IV Q12H [facility]; Protocol Stop: 05/22/22 13:59 Last Admin: 05/17/22 14:06 Dose: 5 mls/min Insulin Aspart (Insulin Aspart Per Unit) 0 units SC ACHS [facility] Stop: 06/14/22 07:29 Last Admin: 05/17/22 12:00 Dose: 4 units Insulin Glargine (Lantus Per Unit Charge) 45 units SQ BID [facility] Stop: 06/14/22 08:59 Last Admin: 05/17/22 07:58 Dose: 45 units Ketorolac Tromethamine (Ketorolac Tromethamine 15 Mg/Ml Vial) 15 mg IV Q6H PRN PRN Reason: Moderate Pain Stop: 05/20/22 13:51 Last Admin: 05/15/22 14:12 Dose: 15 mg Metoprolol Succinate (Metoprolol Succ 25mg Ext Rel Tab) 12.5 mg PO QAM [facility] Stop: 06/17/22 08:59 Miconazole Nitrate (Miconazole Nitrate Powder 43 Gm) 1 appln EXT PRN PRN PRN Reason: Affected Skin Folds Stop: 06/14/22 04:25 Last Admin: 05/15/22 05:11 Dose: 1 appln Miscellaneous (Carbohydrates For Hypoglycemia ) 15 - 30 gm PO UD PRN PRN Reason: Hypoglycemia Protocol Stop: 06/14/22 00:09 Oxycodone HCl (Oxycodone Hcl Ir 5 Mg Tab (Immediate Release)) 5 - 10 mg PO QID PRN PRN Reason: Pain Stop: 05/29/22 04:09 Last Admin: 05/15/22 08:40 Dose: 10 mg
[2022-05-18] MEDS: CEFEPIME 2,000 MG in SYRINGE 0 ML IV SCH ×2 (02:15→13:32)
[2022-05-18] MEDS: DOXYCYCLINE HYCLATE 100 MG CAP PO SCH ×2 (07:59→20:18)
[2022-05-18] MEDS: METOPROLOL SUCC 25MG EXT REL TAB PO SCH (08:00)
[2022-05-18] MEDS: ENALAPRIL MALEATE 5 MG TAB PO SCH (08:00)
[2022-05-18] MEDS: LANTUS PER UNIT CHARGE SQ SCH ×2 (08:08→20:27)
[2022-05-18] MEDS: INSULIN ASPART PER UNIT SC SCH ×4 (08:08→20:27)
--- NOTE | 2022-05-18 12:55 | Cardiology Progress Note ---
Date of Service May 18, 2022 Assessment & Plan (1) Cellulitis of leg, right: (2) HTN (hypertension): (3) Diastolic dysfunction: (4) Obesity: (5) DM type 2 (diabetes mellitus, type 2): Plan Apart from her LE edema, R>L, does not examine as volume overloaded Significant chronic venous stasis changes as well tolerating med changes well cont metoprolol and enalapril will start po lasix today cellulitis treatment as per primary team will need to follow up as an outpatient upon discharge for ongoing treatment, likely in 1 month at the [facility] office Admission and Anticipated Discharge Date Admission Date: May 15, 2022 Subjective Pt seen and examined. Chart reviewed. Telemetry reviewed. States that she feels a little better today. Still denies cp, sob, palpitations and lightheadedness. Review of Systems Review of Systems: All systems reviewed & are unremarkable except as noted in HPI & below Physical Exam Physical Exam: General: Awake, alert and oriented x 3. No acute distress. HEENT: Normocephalic, atraumatic. Pupils equal, round and reactive to light and accommodation. Extraocular muscles are intact. Anicteric sclera. Moist mucous membranes. Neck: No JVD. No bruit. Cardiovascular: Regular. Positive S-4. Normal S-1 and S-2. No S-3. No murmurs or rubs. Pulmonary: Clear to auscultation B/L. No rales, rhonchi or wheezing Abdomen: Bowel sounds x 4, soft. No rebound, guarding or tenderness. No organomegaly. Extremities: No clubbing, cyanosis. Profound LE edema, R>L. +1 pedal pulses bilaterally. Skin: Warm and dry, chronic venous stasis changes of B/L LE. Results & Data ([facility]) Vital Signs (Past 12 Hours) Vital Signs Temp Pulse Resp BP Pulse Ox O2 Del Method 05/18/22 10:50 36.6 C 73 20 138/75 95 Room Air 05/18/22 07:29 36.4 C L 68 18 117/67 96 Room Air 05/18/22 04:00 36.7 C 77 20 123/73 97 Room Air
[2022-05-18] MEDS: FUROSEMIDE 20 MG TAB PO SCH (13:32)
--- NOTE | 2022-05-18 14:00 | Hospitalist Progress Note ---
Date of Service May 18, 2022 Assessment & Plan (1) Cellulitis of right foot: Plan 61-year-old lady with PMH of HTN, HLD, chronic lymphedema, JUAN, DM 2 insulin requiring, NAFLD cirrhosis, chronic thrombocytopenia presented to the ED 05/14 with complaint of increasing right foot and lower leg redness and swelling, no recollection of trauma, denied fever or chills. No improvement with Keflex at home. She is being managed for the following: RLE cellulitis Underlying chronic lymphedema Underlying chronic lymphedema, presents with few days of increasing right foot and lower leg redness and swelling, no fever. Failed outpatient therapy. No sepsis at presentation. Right foot x-ray and right tibia/fibula x-ray with no acute fracture or dislocation. Dorsal foot with soft tissue swelling. RLE US venous Doppler: Negative for DVT. Patient is started on doxycycline 05/15, continue. Added cefepime 05/15. [place] fluid restriction 2 L daily. Local wound care-no skin break wounds or improving Advised to keep the legs elevated Legs are much better with decreasing swelling, redness and tenderness We will get PT and OT evaluation and likely discharge tomorrow on oral antibiotic Acute HFrEF, likely new diagnosis: OP chart review w/ no diagnosis of HF. Pt not on water pill as OP; OP ECHO on 12/23/2020 w/ mild concentric LVH, EF 55-59%, LV wall motion/cavity size normal. get tsh. iv lasix 20 mg today, cardio consult for new HF diagnosis. ECHO and CXR this admission - see below. Appreciate cardiology input and recommendation Lisinopril doses will be decreased and added Lasix Will a follow-up in heart failure clinic in 1 month We will continue p.o. Lasix as advised by the ribbon cleaner Mild pulmonary edema: Present on admitting CXR, rule out pulmonary hypertension given pulmonary conges tion/weight gain and untreated JUAN. 05/15 ECHO w/ EF 60-65%, mild concentric LVH, grade II diastolic dysfunction. OP sleep study. Other chronic medical conditions: HTN, HLD, DM2, NAFLD cirrhosis, chronic, cytopenia --- continue with/resume home meds as an when able. Sliding scale insulin while in hospital. DVT prophylaxis: SCDs, thrombocytopenia Full code Admission and Anticipated Discharge Date Admission Date: May 15, 2022 Subjective 05/17/2022 The patient was seen and examined in medical telemetry unit She has been complaining of pain and swelling of the right more than the left lower extremity Also has redness involving the right lower extremity No fever and or chills but complains to have some pain in the right leg mainly 05/18/2022 The patient was seen and examined in medical telemetry unit She has been feeling much better and the right leg is less swollen and less inflamed Denies any shortness of breath at rest and no fever and or chills Review of Systems Review of Systems: All systems reviewed and are unremarkable except as noted below Musculoskeletal: Bilateral leg swelling with pain in the right leg more than the left Physical Exam 2 Physical Exam: Lying in bed comfortably Constitutional: well developed, well nourished, + ill appearing and + morbidly obese Eyes: PERRL, conjunctivae normal, anicteric sclerae ENMT: external ear and nose normal, oropharynx normal Neck: trachea midline, no thyromegaly Respiratory: no respiratory distress Auscultation: + diminished lung sounds and + crackles (Occasional crackles at the bases) Cardiovascular: Rate/Rhythm: regular rate and regular rhythm; not tachycardic Heart Sounds: normal S1 and normal S2; no murmur Extremities: + edema (2+ edema on the left and 2-3+ edema on the right) Gastrointestinal (Abdomen): Inspection/Auscultation: + abdomen distended and normal bowel sounds Percussion/Palpation: abdomen soft; abdomen nontender Musculoskeletal: No acute arthritis involving any joint Neurologic: Alert, awake and oriented x3. No focal sensory or motor deficit appreciated Psychiatric: A+Ox3, euthymic affect Lymphatic: no cervical or axillary lymphadenopathy Results & Data Results & Data ([facility]) Vital Signs (Past 12 Hours) Vital Signs Temp Pulse Resp BP Pulse Ox O2 Del Method 05/18/22 10:50 36.6 C 73 20 138/75 95 Room Air 05/18/22 07:29 36.4 C L 68 18 117/67 96 Room Air 05/18/22 04:00 36.7 C 77 20 123/73 97 Room Air Medications Administered Current Inpatient Medications Acetaminophen (Acetaminophen 500 Mg Tab) 500 mg PO Q6H PRN PRN Reason: pain/fever Stop: 06/14/22 04:09 Last Admin: 05/17/22 08:18 Dose: 500 mg Dextrose (Dextrose 50% 50 Ml Syringe) 25 - 50 ml IV UD PRN; Protocol PRN Reason: Hypoglycemia Protocol Stop: 06/14/22 00:09 Doxycycline Hyclate (Doxycycline Hyclate 100 Mg Cap) 100 mg PO BID [facility] Stop: 05/22/22 08:59 Last Admin: 05/18/22 07:59 Dose: 100 mg Enalapril Maleate (Enalapril Maleate 5 Mg Tab) 5 mg PO DAILY [facility] Stop: 06/17/22 08:59 Last Admin: 05/18/22 08:00 Dose: 5 mg Furosemide (Furosemide 20 Mg Tab) 20 mg PO QAM [facility] Stop: 06/17/22 12:59 Last Admin: 05/18/22 13:32 Dose: 20 mg Glucagon (Glucagon For Inj 1 Mg Vial) 1 mg SQ UD PRN; Protocol PRN Reason: Hypoglycemia Protocol Stop: 06/14/22 00:09 Glucose (Glucose 40% Gel 15 Gm Tube) 15 - 30 gm PO UD PRN; Protocol PRN Reason: Hypoglycemia Protocol Stop: 06/14/22 00:09 Glucose (Glucose 10 Tab/Tube) 4 - 8 tab PO UD PRN; Protocol PRN Reason: Hypoglycemia Treatment Stop: 06/14/22 00:09 Cefepime HCl 2,000 mg/ Syringe 20 mls @ 5 mls/min IV Q12H [facility]; Protocol Stop: 05/22/22 13:59 Last Admin: 05/18/22 13:32 Dose: 5 mls/min Insulin Aspart (Insulin Aspart Per Unit) 0 units SC ACHS [facility] Stop: 06/14/22 07:29 Last Admin: 05/18/22 11:59 Dose: 5 units Insulin Glargine (Lantus Per Unit Charge) 45 units SQ BID [facility] Stop: 06/14/22 08:59 Last Admin: 05/18/22 08:08 Dose: 45 units Ketorolac Tromethamine (Ketorolac Tromethamine 15 Mg/Ml Vial) 15 mg IV Q6H PRN PRN Reason: Moderate Pain Stop: 05/20/22 13:51 Last Admin: 05/15/22 14:12 Dose: 15 mg Metoprolol Succinate (Metoprolol Succ 25mg Ext Rel Tab) 12.5 mg PO QAM [facility] Stop: 06/17/22 08:59 Last Admin: 05/18/22 08:00 Dose: 12.5 mg Miconazole Nitrate (Miconazole Nitrate Powder 43 Gm) 1 appln EXT PRN PRN PRN Reason: Affected Skin Folds Stop: 06/14/22 04:25 Last Admin: 05/15/22 05:11 Dose: 1 appln Miscellaneous (Carbohydrates For Hypoglycemia ) 15 - 30 gm PO UD PRN PRN Reason: Hypoglycemia Protocol Stop: 06/14/22 00:09 Oxycodone HCl (Oxycodone Hcl Ir 5 Mg Tab (Immediate Release)) 5 - 10 mg PO QID PRN PRN Reason: Pain Stop: 05/29/22 04:09 Last Admin: 05/15/22 08:40 Dose: 10 mg
[2022-05-19] MEDS: CEFEPIME 2,000 MG in SYRINGE 0 ML IV SCH ×2 (01:51→14:20)
[2022-05-19 08:11] LABS: Calcium 8.7 mg/dl (8.5-10.1); Potassium 4.9 mmol/L (3.5-5.1)
[2022-05-19 08:12] LABS: Basophils # (auto) 0.07 K/uL (0-0.2); Basophils % (auto) 0.7 %; Eosinophils # (auto) 0.37 K/uL (0-0.50); Eosinophils % (auto) 3.9 %; Hematocrit (blood only) 38.4 % (37.0-47.0); Hemoglobin 13.5 g/dl (12.0-16.0); Lymphocytes # (auto) 1.96 K/uL (1.2-3.4); Lymphocytes % (auto) 20.5 %; Mean Corpuscular Hemoglobin 32.3 pg (25.0-34.0); Mean Corpuscular Hgb Conc 35.2 g/dL (32.0-36.0); Mean Corpuscular Volume 91.9 fL (80.0-100.0); Mean Platelet Volume 9.5 fL (9.4-12.4); Monocytes # (auto) 0.69 K/uL (0.11-0.59); Monocytes % (auto) 7.2 %; Neutrophils # (auto) 6.35 K/uL (1.40-6.50); Neutrophils % (auto) 66.7 %; Platelet Count 104 K/uL (130-400); RDW Coefficient of Variation 14.6 % (11.5-14.5); Red Blood Count 4.18 M/uL (4.20-5.40); White Blood Count 9.54 K/ul (4.8-10.8)
[2022-05-19 08:16] LABS: BUN Creatinine Ratio 30.1 (10-20); Creatinine Clr Calc Pharmacy 88.2 ml/min; Est GFR (African American) 75.8 ml/min; Est GFR (Non-African American) 65.4 ml/min
[2022-05-19] MEDS: METOPROLOL SUCC 25MG EXT REL TAB PO SCH (08:41)
[2022-05-19] MEDS: FUROSEMIDE 20 MG TAB PO SCH (08:42)
[2022-05-19] MEDS: ENALAPRIL MALEATE 5 MG TAB PO SCH (08:42)
[2022-05-19] MEDS: DOXYCYCLINE HYCLATE 100 MG CAP PO SCH (08:42)
[2022-05-19] MEDS: INSULIN ASPART PER UNIT SC SCH ×3 (08:48→17:51)
[2022-05-19] MEDS: LANTUS PER UNIT CHARGE SQ SCH (08:49)
--- NOTE | 2022-05-19 10:03 | Cardiology Progress Note ---
Date of Service May 19, 2022 Assessment & Plan (1) Cellulitis of leg, right: (2) HTN (hypertension): (3) Diastolic dysfunction: (4) Obesity: (5) DM type 2 (diabetes mellitus, type 2): Plan Apart from her LE edema, R>L, does not examine as volume overloaded Significant chronic venous stasis changes as well tolerating med changes well cont metoprolol, lasix and enalapril cellulitis treatment as per primary team will need to follow up as an outpatient upon discharge for ongoing treatment, likely in 1 month at the [facility] ok to discharge from cardiac standpoint Admission and Anticipated Discharge Date Admission Date: May 15, 2022 Subjective Pt seen and examined. Chart reviewed. Telemetry reviewed. States that she is feeling better overall. Review of Systems Review of Systems: All systems reviewed & are unremarkable except as noted in HPI & below Physical Exam Physical Exam: General: Awake, alert and oriented x 3. No acute distress. HEENT: Normocephalic, atraumatic. Pupils equal, round and reactive to light and accommodation. Extraocular muscles are intact. Anicteric sclera. Moist mucous membranes. Neck: No JVD. No bruit. Cardiovascular: Regular. Positive S-4. Normal S-1 and S-2. No S-3. No murmurs or rubs. Pulmonary: Clear to auscultation B/L. No rales, rhonchi or wheezing Abdomen: Bowel sounds x 4, soft. No rebound, guarding or tenderness. No organomegaly. Extremities: No clubbing, cyanosis. Profound LE edema, R>L. +1 pedal pulses bilaterally. Skin: Warm and dry, chronic venous stasis changes of B/L LE. Results & Data ([facility]) Vital Signs (Past 12 Hours) Vital Signs Temp Pulse Resp BP Pulse Ox O2 Del Method 05/19/22 07:04 36.5 C 68 18 133/73 95 Room Air
--- NOTE | 2022-05-19 14:08 | Hospitalist Progress Note ---
Date of Service May 19, 2022 Assessment & Plan (1) Cellulitis of right foot: Plan 61-year-old lady with PMH of HTN, HLD, chronic lymphedema, JUAN, DM 2 insulin requiring, NAFLD cirrhosis, chronic thrombocytopenia presented to the ED 05/14 with complaint of increasing right foot and lower leg redness and swelling, no recollection of trauma, denied fever or chills. No improvement with Keflex at home. She is being managed for the following: RLE cellulitis Underlying chronic lymphedema Underlying chronic lymphedema, presents with few days of increasing right foot and lower leg redness and swelling, no fever. Failed outpatient therapy. No sepsis at presentation. Right foot x-ray and right tibia/fibula x-ray with no acute fracture or dislocation. Dorsal foot with soft tissue swelling. RLE US venous Doppler: Negative for DVT. Patient is started on doxycycline 05/15, continue. Added cefepime 05/15. [place] fluid restriction 2 L daily. Local wound care-no skin break wounds or improving Advised to keep the legs elevated Legs are much better with decreasing swelling, redness and tenderness We will get PT and OT evaluation and likely discharge tomorrow on oral antibiotic PT OT cleared her to go home She was getting some nonspecific with rash likely secondary to doxycycline as she has had Keflex as an outpatient Initial plan was to give clindamycin Keflex will be continued for 7 more days to reduce the chance of having C. difficile colitis following clindamycin Acute HFrEF, likely new diagnosis: OP chart review w/ no diagnosis of HF. Pt not on water pill as OP; OP ECHO on 12/23/2020 w/ mild concentric LVH, EF 55-59%, LV wall motion/cavity size normal. get tsh. iv lasix 20 mg today, cardio consult for new HF diagnosis. ECHO and CXR this admission - see below. Appreciate cardiology input and recommendation Lisinopril doses will be decreased and added Lasix Will a follow-up in heart failure clinic in 1 month We will continue p.o. Lasix as advised by the grinding and polishing laborer She will be given 20 mg Lasix daily to decrease swelling and prevent fluid overload Mild pulmonary edema: Present on admitting CXR, rule out pulmonary hypertension given pulmonary congestion/weight gain and untreated JUAN. 05/15 ECHO w/ EF 60-65%, mild concentric LVH, grade II diastolic dysfunction. OP sleep study. Other chronic medical conditions: HTN, HLD, DM2, NAFLD cirrhosis, chronic, cytopenia --- continue with/resume home meds as an when able. Sliding scale insulin while in hospital. DVT prophylaxis: SCDs, thrombocytopenia Full code Admission and Anticipated Discharge Date Admission Date: May 15, 2022 Subjective 05/17/2022 The patient was seen and examined in medical telemetry unit She has been complaining of pain and swelling of the right more than the left lower extremity Also has redness involving the right lower extremity No fever and or chills but complains to have some pain in the right leg mainly 05/18/2022 The patient was seen and examined in medical telemetry unit She has been feeling much better and the right leg is less swollen and less inflamed Denies any shortness of breath at rest and no fever and or chills 05/19/2022 The patient was seen and examined in medical floor Her swelling and cellulitis have improved a lot No fever and no chills She will be discharged home this afternoon Review of Systems Review of Systems: All systems reviewed and are unremarkable except as noted below Physical Exam Physical Exam: Lying in bed comfortably Constitutional: well developed, well nourished, + ill appearing and + morbidly obese Eyes: PERRL, conjunctivae normal, anicteric sclerae ENMT: external ear and nose normal, oropharynx normal Neck: trachea midline, no thyromegaly Respiratory: no respiratory distress Auscultation: + diminished lung sounds and + crackles (Occasional crackles at the bases) Cardiovascular: Rate/Rhythm: regular rate and regular rhythm; not tachycardic Heart Sounds: normal S1 and normal S2; no murmur Extremities: + edema (2+ edema on the left and 2-3+ edema on the right) Gastrointestinal (Abdomen): Inspection/Auscultation: + abdomen distended and normal bowel sounds Percussion/Palpation: abdomen soft; abdomen nontender Musculoskeletal: No acute arthritis involving any joint, right lower extremities improved with less swelling and less redness and tenderness Psychiatric: A+Ox3, euthymic affect Lymphatic: no cervical or axillary lymphadenopathy Results & Data Results & Data ([facility]) Vital Signs (Past 12 Hours) Vital Signs Temp Pulse Resp BP Pulse Ox O2 Del Method 05/19/22 08:50 Room Air 05/19/22 07:04 36.5 C 68 18 133/73 95 Room Air Laboratory Results Short CBC 05/19/22 Range/Units 07:23 WBC 9.54 (4.8-10.8) K/ul Hgb 13.5 (12.0-16.0) g/dl Hct 38.4 (37.0-47.0) % Plt Count 104 L D (130-400) K/uL BMP 05/19/22 07:23 Sodium 137 Potassium 4.9 Chloride 106 Carbon Dioxide 24 BUN 28 H Creatinine 0.93 Glucose 105 H Calcium 8.7 Medications Administered Current Inpatient Medications Acetaminophen (Acetaminophen 500 Mg Tab) 500 mg PO Q6H PRN PRN Reason: pain/fever Stop: 06/14/22 04:09 Last Admin: 05/17/22 08:18 Dose: 500 mg Clindamycin HCl (Clindamycin Hcl 150 Mg Cap) 300 mg PO Q6 RODRIGO Stop: 05/26/22 17:59 Last Admin: 05/19/22 17:52 Dose: Not Given Dextrose (Dextrose 50% 50 Ml Syringe) 25 - 50 ml IV UD PRN; Protocol PRN Reason: Hypoglycemia Protocol Stop: 06/14/22 00:09 Enalapril Maleate (Enalapril Maleate 5 Mg Tab) 5 mg PO DAILY RODRIGO Stop: 06/17/22 08:59 Last Admin: 05/19/22 08:42 Dose: 5 mg Furosemide (Furosemide 20 Mg Tab) 20 mg PO QAM [facility] Stop: 06/17/22 12:59 Last Admin: 05/19/22 08:42 Dose: 20 mg Glucagon (Glucagon For Inj 1 Mg Vial) 1 mg SQ UD PRN; Protocol PRN Reason: Hypoglycemia Protocol Stop: 06/14/22 00:09 Glucose (Glucose 40% Gel 15 Gm Tube) 15 - 30 gm PO UD PRN; Protocol PRN Reason: Hypoglycemia Protocol Stop: 06/14/22 00:09 Glucose (Glucose 10 Tab/Tube) 4 - 8 tab PO UD PRN; Protocol PRN Reason: Hypoglycemia Treatment Stop: 06/14/22 00:09 Insulin Aspart (Insulin Aspart Per Unit) 0 units SC ACHS [facility] Stop: 06/14/22 07:29 Last Admin: 05/19/22 17:51 Dose: Not Given Insulin Glargine (Lantus Per Unit Charge) 45 units SQ BID [facility] Stop: 06/14/22 08:59 Last Admin: 05/19/22 08:49 Dose: 45 units Ketorolac Tromethamine (Ketorolac Tromethamine 15 Mg/Ml Vial) 15 mg IV Q6H PRN PRN Reason: Moderate Pain Stop: 05/20/22 13:51 Last Admin: 05/15/22 14:12 Dose: 15 mg Lactobacillus Acidophilus (Advanced Probiotic 1250 Mg Capsule) 2 cap PO DAILY RODRIGO Stop: 06/18/22 14:14 Last Admin: 05/19/22 15:13 Dose: 2 cap Metoprolol Succinate (Metoprolol Succ 25mg Ext Rel Tab) 12.5 mg PO QAM RODRIGO Stop: 06/17/22 08:59 Last Admin: 05/19/22 08:41 Dose: 12.5 mg Miconazole Nitrate (Miconazole Nitrate Powder 43 Gm) 1 appln EXT PRN PRN PRN Reason: Affected Skin Folds Stop: 06/14/22 04:25 Last Admin: 05/15/22 05:11 Dose: 1 appln Miscellaneous (Carbohydrates For Hypoglycemia ) 15 - 30 gm PO UD PRN PRN Reason: Hypoglycemia Protocol Stop: 06/14/22 00:09 Oxycodone HCl (Oxycodone Hcl Ir 5 Mg Tab (Immediate Release)) 5 - 10 mg PO QID PRN PRN Reason: Pain Stop: 05/29/22 04:09 Last Admin: 05/15/22 08:40 Dose: 10 mg
[2022-05-19] MEDS ORDERED: ADVANCED PROBIOTIC 1250 MG CAPSULE PO SCH (14:15)
[2022-05-19] MEDS ORDERED: CLINDAMYCIN HCL 150 MG CAP PO SCH (18:00)
--- NOTE | 2022-05-19 18:49 | Discharge Summary ---
Date of Service May 19, 2022 Admission HPI Per Admitting Provider History obtained from patient and records. Medical history significant for hypertension, hyperlipidemia, chronic lymphedema, JUAN, DM 2 insulin requiring, NAFLD cirrhosis, chronic thrombocytopenia Last confinement April 2020 for facial cellulitis. Patient seen at the ER 2 weeks ago for a rash attributed to candidal infection. Rash improved with discharge prescriptions as per patient. 3 days ago, patient noted increasing right foot and lower leg redness and swelling. No recollection of trauma. No fever, no chills, no chest pain, no SOB. Patient thinks she is retaining fluid and gaining weight. Increased abdominal distention without abdominal pain. Patient seen at the ER yesterday morning. Patient discharged on Keflex course. No improvement with a few doses of Keflex at home. Patient returned to ER for evaluation. MEDICAL HISTORY: As above. SURGERIES: She has had gynecologic procedures, cholecystectomy, cataract surgeries FAMILY HISTORY: Hypertension, cirrhosis secondary to fatty liver disease, throat cancer, Parkinson's disease PERSONAL SOCIAL HISTORY: Nonsmoker, no chronic intake of alcoholic beverages. Disabled. Admission Exam Per Admitting Provider Physical Exam: GENERAL: Comfortable, morbidly obese, pleasant, no respiratory distress SKIN: Normal color, warm HEENT: [place] palpebral conjunctivae, no ptosis, dry buccal mucosa NECK : Supple, short neck, no tenderness CHEST : Decreased breath sounds, no tenderness HEART : RRR, no obvious murmurs ABDOMEN: distention, nontender EXTREMITIES : Bilateral LE swelling, right lower leg/foot induration with minimal tenderness, no other conspicuous deformities noted NEUROLOGIC : Coherent, no facial asymmetry, no other gross focality Principal Diagnosis Right leg cellulitis, bilateral leg edema with lymphedema, acute heart failure with preserved EF Discharge Exam Lying in bed comfortably Constitutional well developed, well nourished, + ill appearing and + morbidly obese Eyes PERRL, conjunctivae normal, anicteric sclerae ENMT external ear and nose normal, oropharynx normal Neck trachea midline, no thyromegaly Respiratory no respiratory distress Auscultation: + diminished lung sounds and + crackles (Occasional crackles at the bases) Cardiovascular Rate/Rhythm: regular rate and regular rhythm; not tachycardic Heart Sounds: normal S1 and normal S2; no murmur Extremities: + edema (2+ edema on the left and 2-3+ edema on the right) Gastrointestinal (Abdomen) Inspection/Auscultation: + abdomen distended and normal bowel sounds Percussion/Palpation: abdomen soft; abdomen nontender Psychiatric A+Ox3, euthymic affect Lymphatic no cervical or axillary lymphadenopathy Discharge Data Allergies Allergy/AdvReac Type Severity Reaction Status Date / Time Sulfa (Sulfonamide Allergy Intermediate SWELLING, Verified 03/17/22 10:39 Antibiotics) HIVES empagliflozin AdvReac Severe Vaginal Verified 03/17/22 10:39 [From Jardiance] irritation Consultations 05/14/22 23:26 ED Decision to Admit Stat 05/16/22 15:48 Consult Cardiology Routine Ordered Studies 05/15/22 01:17 US abdomen ltd ascites Urgent US venous doppler LE RT Urgent Hospital Course (1) Cellulitis of right foot: Plan 61-year-old lady with PMH of HTN, HLD, chronic lymphedema, JUAN, DM 2 insulin requiring, NAFLD cirrhosis, chronic thrombocytopenia presented to the ED 05/14 with complaint of increasing right foot and lower leg redness and swelling, no recollection of trauma, denied fever or chills. No improvement with Keflex at home. She is being managed for the following: RLE cellulitis Underlying chronic lymphedema Underlying chronic lymphedema, presents with few days of increasing right foot and lower leg redness and swelling, no fever. Failed outpatient therapy. No sepsis at presentation. Right foot x-ray and right tibia/fibula x-ray with no acute fracture or dislocation. Dorsal foot with soft tissue swelling. RLE US venous Doppler: Negative for DVT. Patient is started on doxycycline 05/15, continue. Added cefepime 05/15. [place] fluid restriction 2 L daily. Local wound care-no skin break wounds or improving Advised to keep the legs elevated Legs are much better with decreasing swelling, redness and tenderness We will get PT and OT evaluation and likely discharge tomorrow on oral antibiotic PT OT cleared her to go home She was getting some nonspecific with rash likely secondary to doxycycline as she has had Keflex as an outpatient Initial plan was to give clindamycin Keflex will be continued for 7 more days to reduce the chance of having C. difficile colitis following clindamycin Acute HFrEF, likely new diagnosis: OP chart review w/ no diagnosis of HF. Pt not on water pill as OP; OP ECHO on 12/23/2020 w/ mild concentric LVH, EF 55-59%, LV wall motion/cavity size normal. get tsh. iv lasix 20 mg today, cardio consult for new HF diagnosis. ECHO and CXR this admission - see below. Appreciate cardiology input and recommendation Lisinopril doses will be decreased and added Lasix Will a follow-up in heart failure clinic in 1 month We will continue p.o. Lasix as advised by the tier lift operator She will be given 20 mg Lasix daily to decrease swelling and prevent fluid overload Mild pulmonary edema: Present on admitting CXR, rule out pulmonary hypertension given pulmonary congestion/weight gain and untreated JUAN. 05/15 ECHO w/ EF 60-65%, mild concentric LVH, grade II diastolic dysfunction. OP sleep study. Other chronic medical conditions: HTN, HLD, DM2, NAFLD cirrhosis, chronic, cytopenia --- continue with/resume home meds as an when able. Sliding scale insulin while in hospital. DVT prophylaxis: SCDs, thrombocytopenia Full code Total Time Total Time Spent Total Time Spent (In Minutes): 35 minutes Discharge Plan Discharge Items Patient Disposition: Home - Self-Care Reason For Visit: RLE CELLULITIS Discharge Diagnosis: Right leg cellulitis, bilateral leg edema with lymphedema, acute heart failure with preserved EF Condition on Discharge: Good Activity: Resume your previous activity Non-emergency contact: Primary Care Provider Call non-emergency contact if: you have any medication questions and your symptoms worsen Follow-up/Referrals: Jenaro Rollins MD [Primary Care Provider] - (Date & Time 05/25/2022 3:00 PM Provider Jenaro Rollins MD Department Family [facility] ) Diet: Carb Consistent or DM2 and Heart Healthy Fluids: 2000ml (8 cups) Addtl Attending Provider Instructions: Please take precautions to avoid falls Finish the course of antibiotic Please have regular follow-up appointments with your healthcare providers Pending Studies at Discharge: No Stand-Alone Forms: My [employer], Smoking Cessation Medications and DC Order Prescriptions: New furosemide 20 mg Tablet 20 mg PO QAM 30 Days Qty: 30 0RF metoprolol succinate 25 mg Tablet Extended Release 24 Hr 12.5 mg PO QAM 30 Days Qty: 15 0RF Continued pravastatin 40 mg tablet 40 mg PO QAM ramipril 5 mg capsule 5 mg PO QAM glimepiride 4 mg tablet 4 mg PO QAM insulin glargine [Basaglar KwikPen U-100 Insulin] 100 unit/mL (3 mL) insulin pen 40 unit subcut BID Qty: 15 0RF Rx Instructions: 40u AM 40u PM ketoconazole 2 % shampoo 1 applic TOPICAL DAILY triamcinolone acetonide 0.1 % cream 1 applic TOPICAL DAILY methylprednisolone [Medrol (Abdifatah)] 4 mg tablets,dose pack 4 mg PO DAILY Qty: 21 0RF Rx Instructions: Per package instructions metformin 500 mg tablet extended release 24 hr 1,000 mg PO DAILY Patient Comments: QAM cephalexin 500 mg capsule 500 mg PO QID 7 Days Qty: 28 0RF Discharge Orders: Discharge Order (Routine); Ordered 05/19/22 Ordered By: Michael Hoffman Discharge Order- [facility] (Routine); Ordered 05/19/22 Ordered By: Michael Vu/Other Patient Handouts: Cellulitis Dc Admission Data Admit Date/Time: 05/15/22 03:51 Attending Provider: Michael Hoffman Admit Provider: Herman Avila Primary Care Provider: Jenaro Rollins Other Providers: Herman Avila ; Rom Sharma ; Neela Pride Other Interventions: Discharge Summary Assessment (RN) Last Done: 05/19/22 16:54
== END 2022-05-19 18:05 | disposition home or self-care (01) | DRG 602 ==
LOC: ED 20:12 → SUATTDRO 05-15 03:51 → 2W 05-15 03:51 → 3N 05-18 23:23

== ENCOUNTER 2023-06-25 11:11 | Inpatient (IN) ==
--- NOTE | 2023-06-25 11:26 | Emergency Department Note ---
History of Present Illness General Chief complaint: Cardiac Assessment Stated complaint: CHEST PAIN, DIZZINESS, SHORTNESS OF BREATH Time Seen by Provider: 06/25/23 11:17 History of Present Illness Maximum Pain Intensity: 25 62-year-old female presents emergency department with onset of nausea vomiting and diarrhea that started at 1 AM last night. Patient states that she felt dizzy. Patient states that she had yellow diarrhea. Patient of note was at [place] for wound care for right lower extremity lymphedema. Patient states to me that she has 3 to 6 months to live. Patient has a history of CKD. Patient denies any chest pain shortness of breath fever. There are no other medical alleviating factors. Patient denies any specific abdominal pain.; Patient presented to the emergency department today due to dizziness that she believes is from vomiting and diarrhea. Home Medications Medication Instructions Recorded Confirmed Type pravastatin 40 mg tablet 40 mg PO QAM 05/26/18 05/14/22 History glimepiride 4 mg tablet 4 mg PO QAM 04/20/20 05/14/22 History ramipril 5 mg capsule 5 mg PO QAM 04/20/20 05/14/22 History insulin glargine 100 unit/mL (3 40 unit (0.4 mL) subcut BID #15 mL 04/25/20 05/14/22 Rx mL) subcutaneous pen (Basaglar KwikPen U-100 Insulin) ketoconazole 2 % shampoo 1 applic topical DAILY 05/01/22 05/14/22 History triamcinolone acetonide 0.1 % 1 applic topical DAILY 05/01/22 05/14/22 History topical cream metformin 500 mg tablet,extended 1,000 mg PO DAILY 05/14/22 05/14/22 History release 24 hr methylprednisolone 4 mg tablets in 4 mg PO DAILY #21 ea 05/14/22 05/14/22 Rx a dose pack (Medrol (Abdifatah)) doxycycline hyclate 50 mg tablet 50 mg PO BID Rosacea #60 tabs 05/20/23 Rx selenium sulfide 1 % shampoo 5 ml topical BID #207 mL 05/20/23 Rx (Selsun Blue) Allergies Allergy/AdvReac Type Severity Reaction Status Date / Time Sulfa (Sulfonamide Allergy Intermediate SWELLING, Verified 03/17/22 10:39 Antibiotics) HIVES empagliflozin AdvReac Severe Vaginal Verified 03/17/22 10:39 [From Jardiance] irritation Past Med/Surg History Medical History Peripheral neuropathy Spleen enlargement Chronic kidney disease STAGE 2 Liver disease SCLEROSIS History of asthma Thrombocytopenia HTN (hypertension) DM type 2 (diabetes mellitus, type 2) Surgical History History of tooth extraction History of cataract surgery RT/LEFT H/O dilation and curettage History of hysteroscopy S/P cholecystectomy Family History Sister Cervical cancer Other No family history of adverse response to anesthesia Social History Smoking Status: Never smoker Second Hand Exposure: No; Hx Alcohol Use: No Hx Substance Use: No Preferred Language: Amharic Communication Ability: Effective Visual Impairment: No Limitations Hearing Ability: Normal Individual Pension Adviser Required: No Beliefs That Will Affect Care: None Current Living Situation: Alone Feels Safe at Home: Yes Assistive Devices: Cane and Walker Review of Systems A total of 10 systems reviewed and were otherwise negative Cardiovascular: no chest pain Gastrointestinal: + nausea, + vomiting and + diarrhea/loose stools Physical Exam Vital Signs Vital Signs - 24 hr 06/25/23 11:12 06/25/23 11:26 Temperature 36.8 C Temperature Source Temporal Artery Scan Pulse Rate 84 88 Respiratory Rate 18 Respiratory Effort / Characteristics Non-Labored Spontaneous Respiratory Depth Normal Respiratory Pattern Regular Blood Pressure 149/70 H Blood Pressure Mean 96 Blood Pressure Position Sitting Pulse Oximetry 100 Oxygen Delivery Method Room Air Sepsis Recent Fever Within 48 Hours No Sepsis New/Unexplained Change in Mental Status No Sepsis Action Taken by Nursing No Action Required GENERAL: Patient is awake alert in no acute distress patient is resting comfortably and showing no signs of anxiety EYES: The conjunctivae are clear. The pupils are round and reactive. EARS, NOSE, MOUTH AND THROAT: The nose is without any evidence of any deformity. Mucous membranes are moist. Tongue is midline. NECK: The neck is nontender and supple. RESPIRATORY: Normal respiratory effort is noted there is no evidence of wheezing rhonchi or rales CARDIOVASCULAR: Regular rate and rhythm noted there no murmurs rubs or gallops normal S1 normal S2. GASTROINTESTINAL: The abdomen is soft. Abdomen is nontender. Large surgical scar present on right upper quadrant BACK: No midline tenderness or or step-off noted range of motion in flexion extension as well as rotation no signs of muscle spasm noted MUSCULOSKELETAL/EXTREMITIES: There is no evidence of gross deformity full range of motion is noted in the hips and shoulders. SKIN: Patient has lymphedema in the right lower extremity with a bandaged wound present; there are no petechiae, pallor or cyanosis noted. NEUROLOGIC: Patient is awake alert and oriented x3 strength is symmetric Course Reevaluation(s) Reevaluation #1: Resting in no distress on repeat examination however the patient is anxious she hyperventilated and was shaking. Evaluation with the patient the patient's son at bedside. Patient then stated that she had some chest tightness that went into the left side of her neck. Repeat EKG was obtained and interpreted by me as a sinus rhythm without ischemic changes. Time: 13:15 Consultations Consultation #1: [facility] Time: 13:15 Administered Medications Discontinued Medications Lorazepam (Lorazepam 1 Mg/1 Ml Syr Ed Inj Use) 1 mg IV ONE STA Stop: 06/25/23 13:04 Last Admin: 06/25/23 13:10 Dose: 1 mg Documented By: CAROL Medical Decision Making Medical Records Attestation: I reviewed the patient's medical records. Home Medications Current Medication List: was personally reviewed by me Laboratory Data Attestation: I reviewed the patient's lab results. Labs interpreted by me patient has a mild hyperglycemia 06/25/23 11:27 06/25/23 11:27 Lab Results 06/25/23 06/25/23 Range/Units 11:25 11:27 WBC 7.90 (4.8-10.8) K/ul RBC 3.78 L (4.20-5.40) M/uL Hgb 12.1 (12.0-16.0) g/dl Hct 35.8 L (37.0-47.0) % MCV 94.7 (80.0-100.0) fL MCH 32.0 (25.0-34.0) pg MCHC 33.8 (32.0-36.0) g/dL RDW Std Deviation 50.7 H (36.4-46.3) fL RDW Coeff of Melissa 14.7 H (11.5-14.5) % Plt Count 71 L (130-400) K/uL MPV 8.6 L (9.4-12.4) fL Immature Gran % (Auto) 0.4 % Neut % (Auto) 92.7 % Lymph % (Auto) 4.3 % Johnston % (Auto) 2.2 % Eos % (Auto) 0.1 % Baso % (Auto) 0.3 % Neut # (Auto) 7.33 H (1.40-6.50) K/uL Lymph # (Auto) 0.34 L (1.20-3.40) K/uL Johnston # (Auto) 0.17 (0.11-0.59) K/uL Eos # (Auto) 0.01 (0.00-0.50) K/uL Baso # (Auto) 0.02 (0.00-0.20) K/uL Immature Gran # (Auto) 0.03 (0.01-0.20) K/uL RBC Morphology Unremarkable PT 13.0 H (9.0-12.0) Seconds INR 1.2 H (0.9-1.1) APTT 29 (21-31) Seconds PTT Ratio 1.0 Sodium 137 (136-145) mmol/L Potassium 3.8 (3.5-5.1) mmol/L Chloride 105 (98-107) mmol/L Carbon Dioxide 24 (21-32) mmol/L Anion Gap 8 (3-11) BUN 17 (6-23) mg/dl Creatinine 1.04 (0.6-1.2) mg/dl Est Cr Clr Drug Dosing Not Reportable Est GFR ( Amer) 65.8 ml/min Est GFR (Non-Af Amer) 56.7 ml/min BUN/Creatinine Ratio 16.3 (10-20) Glucose 191 H (70-99(Fasting)) mg/dl Calcium 8.5 L (8.6-10.3) mg/dl Total Bilirubin 2.8 H (0.2-1.0) mg/dl AST 29 (13-39) U/L ALT 15 (7-52) U/L Alkaline Phosphatase 82 (34-104) U/L Troponin I High Sens 8.6 (0-14) pg/ml Total Protein 7.1 (6.0-8.3) gm/dl Albumin 3.1 L (3.4-5.0) gm/dl Globulin 4.0 (2.5-4.0) gm/dl Albumin/Globulin Ratio 0.8 L (0.9-2) Lipase 14 (11-82) U/L SARS-CoV-2 (PCR) NEGATIVE (Negative) Influenza Type A (PCR) Negative (Neg) Influenza Type B (PCR) Negative (Neg) RSV (RT-PCR) Negative (Neg) Imaging Data Attestation: I personally reviewed and interpreted this imaging study as follows: My Impression: Chest x-ray interpreted by me mild cardiomegaly no pneumothorax mild venous congestion no overt failure or pleural effusions Radiologist's Impression: Chest X-Ray 06/25/23 11:17 XR chest 1V portable CLINICAL HISTORY: Chest pain, nonspecific COMPARISON STUDY: Chest radiograph May 15, 2022. FINDINGS: Lung volumes are normal. There is no pneumothorax or pleural effusion. Cardiomegaly is unchanged. Mediastinal contours are stable. Symmetric densities projecting over the lower lungs likely reflects overlying soft tissues. Subtle interstitial prominence. No evidence for overt pulmonary edema. IMPRESSION: 1. Mild interstitial prominence. This may reflect pulmonary vascular congestion. An infectious process could appear similar although is considered less likely. 2. Stable cardiomegaly. ACT 112: Negative or not required by law. Electronically signed by: Junior Isaacs M.D. 06/25/2023 12:48 PM ECG Data Attestation: I personally reviewed and interpreted this ECG as follows: Additional Comments: EKG interpreted by me normal sinus rhythm rate of 85, right bundle branch block, no obvious ST segment elevation or depression, normal axis EKG #2 interpreted by me normal sinus rhythm rate of 84, right bundle branch block, no obvious ST segment elevation or depression, normal axis MDM Narrative Medical decision making differential diagnosis includes dehydration, electrolyte abnormality, cardiac dysrhythmia, viral syndrome, jonelle, gastritis, gastroenteritis Plan is to check labs, give IV fluids, Zofran, check EKG Impression & Plan Chest pain, Acute hyperventilation, Diarrhea Discharge Plan Visit Data Chief Complaint: Cardiac Assessment Stated Complaint: CHEST PAIN, DIZZINESS, SHORTNESS OF BREATH ED Provider: Sharan Urbina Discharge Problem: Chest pain, Acute hyperventilation, Diarrhea Forms Stand Alone Forms: My [facility] Prescriptions Prescriptions: No Action pravastatin 40 mg tablet 40 mg PO QAM ramipril 5 mg capsule 5 mg PO QAM glimepiride 4 mg tablet 4 mg PO QAM insulin glargine [Basaglar KwikPen U-100 Insulin] 100 unit/mL (3 mL) insulin pen 40 unit subcut BID Qty: 15 0RF Rx Instructions: 40u AM 40u PM ketoconazole 2 % shampoo 1 applic TOPICAL DAILY triamcinolone acetonide 0.1 % cream 1 applic TOPICAL DAILY methylprednisolone [Medrol (Abdifatah)] 4 mg tablets,dose pack 4 mg PO DAILY Qty: 21 0RF Rx Instructions: Per package instructions metformin 500 mg tablet extended release 24 hr 1,000 mg PO DAILY Patient Comments: QAM Selsun Blue 1 % shampoo 5 ml topical BID Qty: 207 0RF Rx Instructions: wash face with shampoo BID x [address] for approximately 3 mins ; rinse doxycycline hyclate 50 mg tablet 50 mg PO BID Qty: 60 2RF Referrals Referrals: PCP,NO [Primary Care Provider] -
[2023-06-25 12:01] LABS: Hematocrit (blood only) 35.8 % (37.0-47.0); Hemoglobin 12.1 g/dl (12.0-16.0); Mean Corpuscular Hgb Conc 33.8 g/dL (32.0-36.0); Mean Corpuscular Volume 94.7 fL (80.0-100.0); Mean Platelet Volume 8.6 fL (9.4-12.4); Platelet Count 71 K/uL (130-400); RDW Coefficient of Variation 14.7 % (11.5-14.5); RDW Standard Deviation 50.7 fL (36.4-46.3); Red Blood Count 3.78 M/uL (4.20-5.40)
[2023-06-25 12:09] LABS: Alanine Aminotransferase 15 U/L (7-52); Albumin Globulin Ratio 0.8 (0.9-2); Albumin Level 3.1 gm/dl (3.4-5.0); Alkaline Phosphatase 82 U/L (34-104); Anion Gap 8 (3-11); Aspartate Aminotransferase 29 U/L (13-39); BUN Creatinine Ratio 16.3 (10-20); Bilirubin,Total 2.8 mg/dl (0.2-1.0); Blood Urea Nitrogen 17 mg/dl (6-23); Calcium 8.5 mg/dl (8.6-10.3); Carbon Dioxide 24 mmol/L (21-32); Chloride 105 mmol/L (98-107); Est GFR (African American) 65.8 ml/min; Est GFR (Non-African American) 56.7 ml/min; Glucose 191 mg/dl (70-99(Fasting)); Lipase 14 U/L (11-82); Potassium 3.8 mmol/L (3.5-5.1); Sodium 137 mmol/L (136-145); Total Protein 7.1 gm/dl (6.0-8.3)
[2023-06-25 12:15] LABS: Troponin I High Sensitivity 8.6 pg/ml (0-14)
[2023-06-25 12:18] LABS: Basophils # (auto) 0.02 K/uL (0.00-0.20); Basophils % (auto) 0.3 %; Eosinophils # (auto) 0.01 K/uL (0.00-0.50); Eosinophils % (auto) 0.1 %; Immature Granulocytes # (auto) 0.03 K/uL (0.01-0.20); Immature Granulocytes % (auto) 0.4 %; Lymphocytes # (auto) 0.34 K/uL (1.20-3.40); Lymphocytes % (auto) 4.3 %; Monocytes # (auto) 0.17 K/uL (0.11-0.59); Monocytes % (auto) 2.2 %; Neutrophils # (auto) 7.33 K/uL (1.40-6.50); Neutrophils % (auto) 92.7 %; RBC Morphology Unremarkable
[2023-06-25 12:19] LABS: INR 1.2 (0.9-1.1); Partial Thromboplastin Time 29 Seconds (21-31)
[2023-06-25 12:22] LABS: Influenza A virus by PCR Negative (Neg); Influenza B virus by PCR Negative (Neg); RSV by PCR Negative (Neg); SARS CoV2 RNA(COVID-19) Ceph NEGATIVE (Negative)
--- NOTE | 2023-06-25 12:50 | XRay Report ---
XR chest 1V portable CLINICAL HISTORY: Chest pain, nonspecific COMPARISON STUDY: Chest radiograph May 15, 2022. FINDINGS: Lung volumes are normal. There is no pneumothorax or pleural effusion. Cardiomegaly is unch anged. Mediastinal contours are stable. Symmetric densities projecting over the lower lungs likely re flects overlying soft tissues. Subtle interstitial prominence. No evidence for overt pulmonary edema. IMPRESSION: 1. Mild interstitial prominence. This may reflect pulmonary vascular congestion. An infectious proces s could appear similar although is considered less likely. 2. Stable cardiomegaly. ACT 112: Negative or not required by law. Electronically signed by: Junior Isaacs M.D. 06/25/2023 12:48 PM
--- OUTSIDE RECORDS SUMMARY | 2023-06-25 13:05 | External Medical Summary ---
Author Name Unknown Address Unknown Organization [id number]:[facility] [address] [place] [id number] Laboratory Report Ordering Provider Test Date Status DEQUAN ROCHE 06/20/2023 12:27:12 Final Observation Date Value Abnormality Reference (Units ) Status SYNC LEUKOCYTES IN BLOOD BY AUTOMATED COUNT 06/20/2023 12:27:12 8.97 4.00-10.80 (K/uL) Final Segs 06/20/2023 12:27:12 73.7 40.0-75.0 (%) Final Lymphs % 06/20/2023 12:27:12 18.1 18.0-42.0 (%) Final Monos 06/20/2023 12:27:12 5.4 1.0-11.0 (%) Final Eosinophils 06/20/2023 12:27:12 2.6 0.0-6.0 (%) Final Basos 06/20/2023 12:27:12 0.2 0.0-2.0 (%) Final Absolute Segs 06/20/2023 12:27:12 6.74 1.80-7.70 (K/uL) Final Lymphs, absolute 06/20/2023 12:27:12 1.65 1.00-4.80 (K/ul) Final Monos, Abs 06/20/2023 12:27:12 0.49 0.00-1.10 (K/uL) Final Eos, Abs 06/20/2023 12:27:12 0.24 0.00-0.70 (K/uL) Final Basos, Abs 06/20/2023 12:27:12 0.02 0.00-0.20 (K/uL) Final Performing Location [facility] [place] [address] [place] [id number]
--- OUTSIDE RECORDS SUMMARY | 2023-06-25 13:05 | External Medical Summary | Summary of Care ---
Author Name Unknown Organization [facility] Address [address] [place] [address] Phone [phone] Care Team Providers Care Acquisition Cost Estimator Name Role Phone Jenaro Rollins MD Primary Care Provider + [phone] Reason for Referral * Evaluate & Treat - Unlimited Visits (Within 3 days (urgent)) - Authorized Specialty Diagnoses / Procedures Referred By Contac t Referred To Contact Wound Care Diagnoses Cellulitis of right lower extremity Venous stasis dermatitis of both lower extremities Lymphedema Serene Lopez PA-C [address] [place] [address] Referral ID Status Reason Start Date Expiration Date Visits Requested Visits Authorized [id number] Authorized Specialty Services Required 06/20/[phone] Question Answer Referral Priority Within 3 days (urgent) Where should this appointment be scheduled? External - [facility] Comments Assess for: Hx of wound healing problem and Acute Infection (Please page Wound Care Service.) * Evaluate & Treat - Unlimited Visits (Within 10 days (routine)) - Authorized Specialty Diagnoses / Procedures Referred By Contac t Referred To Contact Gastroenterology Diagnoses Cirrhosis of liver without ascites, unspecified hepatic cirrhosis type (HCC) Splenomegaly Serene Lopez PA-C [address] [place] [address] Referral ID Status Reason Start Date Expiration Date Visits Requested Visits Authorized [id number] Authorized Specialty Services Required 06/20/[phone] Question Answer Referral Priority Within 10 days (routine) Where should this appointment be scheduled? [facility] For what condition is the patient being referred? Liver conditions Reason for Visit * Reason Comments Acute R LE-- red swollen, yellow drainage with foul odor. Noticed 2 days ago. Encounter Details Date Type Department Care Team (Late st Contact Info) Description 06/20/2023 11:00 AM EDT Office Visit [facility] [place] [address] [facility] [place] [address] Serene Lopez PA-C [address] [facility] [place] [address] Cellulitis of right lower extremity*; Venous stasis dermatitis of both lower extremities; Lymphedema; Cirrhosis of liver without ascites, unspecified hepatic cirrhosis type ([facility]); Splenomegaly; Type 2 diabetes mellitus with stage 2 chronic kidney disease, without long-term current use of insulin ([facility]); Hyperlipidemia with target LDL less than 100; Portal hypertension ([facility]); Morbid obesity with BMI of 45.0-49.9, adult ([facility]) Allergies Active Allergy Reactions Criticality Noted Date Comments Clindamycin 05/31/2017 Hives/ ER visit Glimepiride 05/03/2022 Empagliflozin 10/31/2018 Genital rash Sulfa Antibiotics Anaphylaxis 01/13/2007 documented as of this encounter (statuses as of 06/23/2023) Medications Medication Sig Dispensed Refills Start Date End Date Status OneTouch Ultra In Vitro Strip (Glucose Blood)Indications:T ype 2 diabetes mellitus with hemoglobin A1c goal of less than 7.0% ([facility]),Type 2 diabetes mellitus with stage 2 chronic kidney disease, without long-term current use of insulin ([facility]) Use to test blood sugar once a day 100 Strip 3 10/08/2020 Active Triamcinolone Acetonide 0.1 % External Ointment (Aristocort)Indicat ions:Plaque psoriasis Apply 2x daily to spots on R wrist/arms until resolved, then when flaring 454 g 1 08/16/2022 Active Tacrolimus 0.1 % External Ointment (Protopic)Indicatio ns:Inverse psoriasis Apply topically to affected area 2 times a day. Apply thin layer to skin folds 2x daily with Desitin 40% cream (over the counter) over top 200 g 3 08/19/2022 Active BD Pen Needle Mini U/F 31G X 5 MM (Insulin Pen Needle)Indications: Type 2 diabetes mellitus with hemoglobin A1c goal of less than 7.0% (HCC),Type 2 diabetes mellitus with stage 2 chronic kidney disease, without long-term current use of insulin (HCC) use with insulin twice daily 200 Each 3 09/13/2022 Active Clobetasol Propionate 0.05 % External Ointment (Temovate)Indicatio ns:Plaque psoriasis apply to thickened areas on back 2 times daily until resolved, then when flaring. 60 g 0 11/15/2022 Active Basaglar KwikPen 100 UNIT/ML Subcutaneous Solution Pen-injector (Insulin Glargine Solostar)Indication s:Type 2 diabetes mellitus with stage 2 chronic kidney disease, without long-term current use of insulin ([facility]) inject 40 units under the skin twice daily 75 mL 1 01/20/2023 Active Ramipril 5 MG Oral Capsule (Altace)Indications :Type 2 diabetes mellitus with hemoglobin A1c goal of less than 7.0% ([facility]),Type 2 diabetes mellitus with stage 2 chronic kidney disease, without long-term current use of insulin ([facility]) TAKE ONE CAPSULE BY MOUTH EVERY DAY 90 Capsule 1 01/25/2023 Active Pravastatin Sodium 40 MG Oral Tablet (Pravachol)Indicati ons:Type 2 diabetes mellitus with hemoglobin A1c goal of less than 7.0% ([facility]),Hyperlipidemi a with target LDL less than 100 TAKE ONE TABLET BY MOUTH AT BEDTIME 90 Tablet 1 01/25/2023 Active metFORMIN HCl ER 500 MG Oral Tablet Extended Release 24 Hour (Glucophage XR)Indications:Type 2 diabetes mellitus with stage 2 chronic kidney disease, without long-term current use of insulin ([facility]) TAKE TWO TABLETS BY MOUTH IN THE MORNING 180 Tablet 0 04/23/2023 Active Doxycycline Hyclate 100 MG Oral CapsuleIndications: Cellulitis of right lower extremity Take 1 Capsule by mouth in the morning and 1 Capsule before bedtime. Do all this for 10 days. Until gone.. 20 Capsule 0 06/20/2023 06/30/2023 Active documented as of this encounter (statuses as of 06/23/2023) Active Problems Problem Noted Date Diagnosed Date CKD (chronic kidney disease), stage II 2 Cirrhosis of liver without ascites 12/19/2020 Advanced directives, counseling/discussion 06/02 Overview: Does the patient have an advance directive? No, Advance Directive brochure given to patient at prior appt. Portal hypertension 01/19/2017 Splenomegaly 01/03/2017 Lymphedema Sleep apnea Type 2 diabetes mellitus wit h hemoglobin A1c goal of less than 7.0% Overview: ICD-10 update of inactive term Rosacea Hyperlipidemia with target LDL less than 100 Overview: ICD-10 update of inactive term Thrombocytopenia Type 2 diabetes mellitus wit h stage 2 chronic kidney disease, without long-term current use of insulin Vitamin D deficiency Morbid obesity with BMI of 45.0-49.9, adult documented as of this encounter (statuses as of 06/23/2023) Resolved Problems Problem Noted Date Diagnosed Date Resolved Date Body mass index (BMI) of 40. 0 to 44.9 in adult 06/12/2018 08/21/2019 Overview: Per Obesity protocol #1 Endometrium, polyp 07/04/2017 9 CKD (chronic kidney disease) stage 2, GFR 60-89 ml/min 05/26/2015 04/14/2017 CKD (chronic kidney disease), stage III 05/07/2015 05/27/2015 Overview: GFR 51 Diabetes 12/14/2013 Neuropathy 10/16/2018 BMI 45.0-49.9, adult 018 Morbid obesity with BMI of 45.0-49.9, adult 06/13/2018 Overview: Per Obesity protocol #1 CKD (chronic kidney disease), stage II 11/16/2018 documented as of this encounter (statuses as of 06/23/2023) Immunizations Name Administration Dates Next Due COVID-19 mRNA, LNP-s, No Pre serve, 2-Dose Series (Fyber) 07/03/2020 HEP A - Hepatitis A (Adult > 18 yrs) 10/13/2017, 03/08/2017 Hepatitis B, 20+ yrs 06/29/2017,01/26/2017,12/27 Pneumococcal Conjugate Vacci ne, 20-valent ([id number]) 08/24/2022 Pneumococcal Polysaccharide PPV23 (Pneumovax) 07/02/2011 Seasonal Influenza, PF, 6 M & above, IM , (FluLaval or Fluzone) 03/01/2023,02/24/2022,02/23/2021,02/20 Zoster Vaccine Recombinant (Shingrix) 08/23/2021 ,06/22/2021 documented as of this encounter Social History Tobacco Use Types Packs/Day Years Used Date Smoking Tobacco: Never Smokeless Tobacco: Never Alcohol Use Standard Drinks/Week Comments No 0 (1 standard drink = 0.6 oz pur e alcohol) PHQ-2 Answer Date Recorded PHQ Adult Total Score 13 06/20/2023 Hunger Vital Sign Answer Date Recorded Within the past 12 months, y ou worried that your food would run out before you got the money to buy more. Never true 06/20/19 24 Within the past 12 months, t he food you bought just didn't last and you didn't have money to get more. Never true 06/20/2023 Sex and Gender Information Value Date Recorded Sex Assigned at Not on file Gender Identity Not on file Sexual Orientation Not on file Job Start Date Occupation Industry Not on file Not on file Not on file documented as of this encounter Last Filed Vital Signs Vital Sign Reading Time Taken Comments Blood Pressure 122/64 06/20/2023 11:10 AM EDT Pulse 78 06/20/2023 11:10 AM EDT Temperature 37 C (98.6 F) 06/20/2023 11:10 AM EDT Respiratory Rate - - Oxygen Saturation 98% 06/20/2023 11:10 AM EDT Inhaled Oxygen Concentration - - Weight 132 kg (291 lb) 06/20/2023 11:10 AM EDT Height - - Body Mass Index 47.67 12/13/2022 11:51 AM EDT documented in this encounter Progress Notes * Serene Lopez PA-C - 06/23/2023 2:22 PM EDT Images from the original note were not included. Subjective Juli Lewis is a 62 year old female that presents for Acute (R LE-- red swollen, yellow drainagewith foul odor. Noticed 2 days ago. ) 62 y/o female presents with concerns of right LE cellulitis. Pt states she noticed that an area on her lower leg opened a few days ago and has been draining foul drainage ever since. She has a hx of lymphedema and recurrent cellulitis on both legs. The right leg is starting to hurt, so she decided to come in and get checked. She has never been seen by wound care before. Used to see Dr. Sexton. She denies fevers, chills, nausea, vomiting, diarrhea. She also needs a new referral to [facility] for her cirrhosis due to her diabetes. She was supposed to go but then her fiance got sick and recently . Also needs to have labs done. Objective BP 122/64 | Pulse 78 | Temp 37 C (98.6 F) | Wt 132 kg (291 lb) | SpO2 98% | BMI 47.67 kg/m | BSA 2.47 m Body mass index is 47.67 kg/m. BP Readings from Last 3 Encounters: 06/20/23 122/64 03/01/23 132/78 12/13/22 140/82 Wt Readings from Last 3 Encounters: 06/20/23 132 kg (291 lb) 03/01/23 133.6 kg (294 lb 7 oz) 12/13/22 (!) 136.2 kg (300 lb 4.8 oz) Physical Exam Vitals and nursing note reviewed. Constitutional: General: She is not in acute distress. Appearance: Normal appearance. HENT: Head: Normocephalic and atraumatic. Eyes: General: No scleral icterus. Extraocular Movements: Extraocular movements intact. Conjunctiva/sclera: Conjunctivae normal. Pupils: Pupils are equal, round, and reactive to light. Cardiovascular: Rate and Rhythm: Normal rate. Pulmonary: Effort: Pulmonary effort is normal. Skin: General: Skin is warm and dry. Comments: See pictures below. Neurological: General: No focal deficit present. Mental Status: She is alert and oriented to person, place, and time. Psychiatric: Mood and Affect: Mood normal. Behavior: Behavior normal. Assessment and plan 1. Cellulitis of right lower extremity -start doxy -urgent wound care referral -case management referral- warm handoff with Billie Gregg today -recheck in 4 weeks - WOUND CARE REFERRAL OP - Doxycycline Hyclate 100 MG Oral Capsule; Take 1 Capsule by mouth in the morning and 1 Capsule before bedtime. Do all this for 10 days. Until gone.. Dispense: 20 Capsule; Refill: 0 - CBC WITH WBC DIFFERENTIAL; Future 2. Venous stasis dermatitis of both lower extremities - WOUND CARE REFERRAL OP 3. Lymphedema - WOUND CARE REFERRAL OP 4. Cirrhosis of liver without ascites, unspecified hepatic cirrhosis type (HCC) -referral made -labs today - HEPATOLOGY REFERRAL OP - COMPREHENSIVE METABOLIC PANEL; Future 5. Splenomegaly - HEPATOLOGY REFERRAL OP 6. Type 2 diabetes mellitus with stage 2 chronic kidney disease, without long- term current use of insulin (HCC) - COMPREHENSIVE METABOLIC PANEL; Future - HEMOGLOBIN A1C; Future - ALBUMIN / CREATININE RATIO, URINE; Future 7. Hyperlipidemia with target LDL less than 100 - LIPID PANEL WITH DIRECT LDL IF TG IS HIGH; Future 8. Portal hypertension (HCC) 9. Morbid obesity with BMI of 45.0-49.9, adult (HCC) Follow up Follow-up: Return in about 4 weeks (around 07/18/2023). | Check-out note: Recheck leg Labs today Total time today including reviewing chart before the visit, pertinent labs, imaging reports, face to face time, and documentation time was 45 minutes. The above was discussed and understanding was expressed. Serene Lopez PA-C documented in this encounter Nursing Notes * Krystyna Millan LPN - 06/20/2023 11:08 AM EDT The patient has been properly identified by confirmation of name and date of . Chief Complaint Patient presents with Acute R LE-- red swollen, yellow drainage with foul odor. Noticed 2 days ago. Pt has BL LE cellulitis-- very dry, painful. More swollen than usual. documented in this encounter Plan of Treatment Upcoming Encounters Date Type Department Care Team (Late st Contact Info) Description 07/12/2023 1:00 PM EDT Office Visit Hepatology, [facility] [address] [place] [address] Sena Hancock MD [address] [place] [address] 07/18/2023 11:20 AM EDT Office Visit Family Practice [facility] [address] [facility] [place] [address] Serene Lopez PA-C [address] [facility] [place] [address] 09/28/2023 9:30 AM EDT Office Visit Family Medicine [address] [id number] María [address] [place] [address] Scheduled Referrals Name Type Priority Associated Diagnoses Orde r Schedule HEPATOLOGY REFERRAL OP Referral Within 10 days (routine) Cirrhosis of liver without ascites, unspecified hepatic cirrhosis type (HCC) Splenomegaly Ordered: 06/20/2023 WOUND CARE REFERRAL OP Referral Within 3 days (urgent) Cellulitis of right lower extremity Venous stasis dermatitis of both lower extremities Lymphedema Ordered: 06/20/2023 Health Maintenance Due Date Last Done Comments DTaP,Tdap,and Td Vaccines (1 - Tdap) 1977 HPV/Co-Test 1988 Mammogram 1998 Cologuard 09/27/2003 Colonoscopy 09/27/2003 Sigmoidoscopy 09/27/2003 Colorectal Cancer Screening 04/16/2017 Fecal Occult Blood Test 04/16/2017 04/16/2016 Cervical Cancer Screening 01/19/2020 Pap Smear 01/19/2020 01/18/2017 COVID-19 Vaccine (2 - Pfizer risk series) 07/24/2020 07/03/2020 Diabetic Eye Exam 01/12/2023 01/12/2022, , 11/25/2020, Additional history exists Depression, Most Recent Score >= 10 (will fire each visit until score < 10) 06/21/2023 06/20/2023 HbA1c 12/21/2023 06/20/2023, 02/03, 08/24/2022, Additional history exists Diabetic Foot Exam 03/01/2024 03/01/2023, 1 04/26/2021, 02/23/2021, Additional history exists Albumin/Creatinine Ratio 06/19/2024 024, 08/24/2022, 08/24/2021, Additional history exists GFR 06/19/2024 06/20/2023, 08/03, 11/02/2021, Additional history exists Lipid Panel 06/19/2028 06/20/2023, 08/03, 08/24/2021, Additional history exists Hepatitis B Completed 06/29/2017, 01/03, 12/27/2016 Zoster Vaccines Completed 08/23/2021, 06/22/2021 Pneumococcal Vaccine: Pediatrics (0 to 5 Years) and At-Risk Patients (6 to 64 Years) Completed 08/24/2022, 07/02/2011 Influenza Vaccine (FLU shot) Completed , 02/24/2022, 02/23/2021, Additional history exists GARDASIL-HPV IMMUNIZATION SERIES Aged Out No longer eligible based on patient's age to complete this topic MENINGOCOCCAL (MENACTRA/MENVEO) Aged Out No longer eligible based on patient's age to complete this topic documented as of this encounter Medical Devices Not on filedocumented as of this encounter Results * (ABNORMAL) ALBUMIN / CREATININE RATIO, URINE (06/20/2023 12:30 PM EDT) Albumin, Random Urine 3.37 mg/dL 06/20/2023 10:15 PM EDT [facility] Creatinine, Random Urine 79 mg/dL 06/20/2023 10:15 PM EDT [facility] Albumin / Creatinine Ratio, Urine 43(H) <30 mg/g Creat 06/20/2023 10:15 PM EDT [facility] Urine Urine specimen obtained by clean catch procedure / Unknown Non-blood Collection / Unknown 06/20/2023 12:30 PM EDT 06/20/2023 12:30 PM EDT Narrative [facility] - 06/20/2023 10:15 PM EDT Normal: <30 mg/g creatinine High: 30-300 mg/g creatinine Very High: >300 mg/g creatinine Nephrotic: >2200 mg/g creatinine Serene Lopez PA-C LAB URINE ORD ERABLES Performing Organization Address City/[facility]/ZIP Co de Phone Number LABORATORY [place] [address] [place] [address] * (ABNORMAL) HEMOGLOBIN A1C (06/20/2023 12:27 PM EDT) Hemoglobin A1C 6.0(H) 4.0 - 5.6 % 06/20/2023 11:52 PM EDT [facility] Comment:The use of HbA1c to monitor glycemic status is based on normal hemoglobin and HbA composition. This test should not be used in patients with abnormal hemoglobin that affects the half life of the red blood cell or the in vivo glycation rates. Estimated Average Glucose 126(H) <126 mg/dL 06/20/2023 11:52 PM EDT [facility] Blood Venous blood specimen / Unknown Venipuncture / Unknown 06/20/2023 12:27 PM EDT 06/20/2023 12:27 PM EDT Serene Lopez PA-C LAB BLOOD ORD ERABELLA Performing Organization Address City/[facility]/ZIP Co de Phone Number [facility] [place] [address] [place] [address] * LIPID PANEL WITH DIRECT LDL IF TG IS HIGH (06/20/2023 12:27 PM EDT) Triglycerides 68 <=174 mg/dL 06/20/2023 10:31 PM EDT [facility] Comment: Triglyceride Reference Ranges (mg/dL): <150 Acceptable 150-174 Borderline high 175-499 High >=500 Very high Cholesterol 128 <200 mg/dL 06/20/2023 10:31 PM EDT [facility] Comment: Total Cholesterol Reference Ranges (mg/dL): <200 Desirable 200-239 Borderline high >=240 High HDL Cholesterol 65 >49 mg/dL 10:31 PM EDT [facility] Comment: HDL Cholesterol Reference Ranges (mg/dL): >=60 High (Desirable) <50 Low (Undesirable) For Females <40 Low (Undesirable) For Males Non-HDL Cholesterol 63 <=159 mg/dL 06/20/2023 10:31 PM EDT [facility] Comment: Non-HDL Cholesterol Reference Range (mg/dL): <100 Target level for high risk ASCVD patient <130 Optimal for general population 130-159 Near optimal for general population 160-189 Borderline High 190-219 High >=220 Very High LDL Cholesterol 49 <=129 mg/dL 06/20/2023 10:31 PM EDT [facility] Comment: LDL Cholesterol Reference Ranges (mg/dL): <70 Target level for high risk ASCVD patient <100 Optimal for general population 100-129 Near optimal for general population 130-159 Borderline high 160-189 High >=190 Very high Blood Venous blood specimen / Unknown Venipuncture / Unknown 06/20/2023 12:27 PM EDT 06/20/2023 12:27 PM EDT Serene Lopez PA-C LAB BLOOD ORD ERABLES [address] [address] * (ABNORMAL) COMPREHENSIVE METABOLIC PANEL (06/20/2023 12:27 PM EDT) BUN 11 6 - 20 mg/dL 06/20/2023 1:53 PM EDT [facility] 56 Creatinine 0.9 0.5 - 1.0 mg/dL 06/20/2023 1:53 PM EDT [facility] 56- Estimated Glomerular Filtration Rate 70 >=60 mL/min 06/20/2023 1:53 PM EDT [facility] 56 Comment:eGFR is calculated b ased on the CKD-EPI 2020 equation Sodium 141 135 - 146 mmol/L 06/20/2023 1:53 PM EDT [facility] 56- Potassium 4.1 3.5 - 5.1 mmol/L 06/20/2023 1:53 PM EDT [facility] 56- Chloride 103 98 - 107 mmol/L 06/20/2023 1:53 PM EDT [address] CO2 28 22 - 32 mmol/L 06/20/2023 1:53 PM EDT [facility] 56 Anion Gap 10 7 - 15 mmol/L 06/20/2023 1:53 PM EDT [address] Glucose 91 70 - 120 mg/dL 06/20/2023 1:53 PM EDT [address] Albumin 3.5(L) 3.8 - 5.0 g/dL 06/20/2023 1:53 PM EDT [address] AST 33 10 - 35 U/L 06/20/2023 1:53 PM EDT [address] Alkaline Phosphatase 118 35 - 130 U/L 06/20/2023 1:53 PM EDT [address] Bilirubin, Total 1.7(H) <=1.2 mg/dL 06/20/2023 1:53 PM EDT [address] Calcium 9.8 8.4 - 10.2 mg/dL 06/20/2023 1:53 PM EDT [address] Protein 7.8 6.0 - 8.3 g/dL 06/20/2023 1:53 PM EDT [address] ALT 21 10 - 35 U/L 06/20/2023 1:53 PM EDT [facility] 56 Blood Venous blood specimen / Unknown Venipuncture / Unknown 06/20/2023 12:27 PM EDT 06/20/2023 12:27 PM EDT Serene Lopez PA-C LAB BLOOD ORD ERABLES [facility] [address] [place] [address] documented in this encounter Visit Diagnoses Diagnosis Cellulitis of right lower extremity- Primary Cellulitis and abscess of leg, except foot Venous stasis dermatitis of both lower extremities Lymphedema Other lymphedema Cirrhosis of liver without ascites, unspecified hepatic cirrhosis type (HCC) Splenomegaly Type 2 diabetes mellitus with stage 2 chronic kidney disease, without long-term current use of insulin (HCC) Hyperlipidemia with target LDL less than 100 Other and unspecified hyperlipidemia Portal hypertension (HCC) Portal hypertension Morbid obesity with BMI of 45.0-49.9, adult (HCC) Morbid obesity documented in this encounter Advance Directives Latest Code Status on File Code Status Date Activated Date Inactivated Comments Full Code 07/11/2017 10:33 AM 07/11/2017 3:56 PM This o rder reflects the patients wishes and were consensually agreed upon. Care Teams Acquisition Cost Estimator Relationship Specialty Start Date End Date Jenaro Rollins MD [address] [place] [address] [place] [address] PCP - General Family Medicine 12/14/13 documented as of this encounter"
--- OUTSIDE RECORDS SUMMARY | 2023-06-25 13:05 | External Medical Summary | Summary of Care ---
Author Name Unknown Organization [facility] Address [address] [place] [address] Phone [phone] Care Team Providers Care Television Engineer Name Role Phone Jenaro Rollins MD Primary Care Provider + [phone] Reason for Visit * Reason Comments Outpatient Testing Encounter Details Date Type Department Care Team (Late st Contact Info) Description 06/20/2023 1:10 PM EDT Laboratory Laboratory [facility] [place] [address] [place] [address] [place], [address] [place] [id number] [place] [employer] Other*[id number]; Cirrhosis of liver without ascites, unspecified hepatic cirrhosis type (HCC); Type 2 diabetes mellitus with stage 2 chronic kidney disease, without long-term current use of insulin ([facility]); Hyperlipidemia with target LDL less than 100; Cellulitis of right lower extremity Allergies Active Allergy Reactions Criticality Noted Date Comments Clindamycin 05/31/2017 Hives/ ER visit Glimepiride 05/03/2022 Empagliflozin 10/31/2018 Genital rash Sulfa Antibiotics Anaphylaxis 01/13/2007 documented as of this encounter (statuses as of 06/20/2023) Medications Medication Sig Dispensed Refills Start Date End Date Status OneTouch Ultra In Vitro Strip (Glucose Blood)Indications:T ype 2 diabetes mellitus with hemoglobin A1c goal of less than 7.0% (HCC),Type 2 diabetes mellitus with stage 2 chronic kidney disease, without long-term current use of insulin ([facility]) Use to test blood sugar once [...] hemoglobin A1c goal of less than 7.0% ([facility]),Type 2 diabetes mellitus with stage 2 chronic kidney disease, without long-term current use of insulin ([facility]) use with insulin twice daily 200 Each [...] disease, without long-term current use of insulin ([facility]) inject 40 units under the skin twice daily 75 mL 1 01/20/2023 Active Ramipril 5 MG Oral Capsule (Altace)Indications :Type 2 diabetes mellitus with hemoglobin A1c goal of less than 7.0% ([facility]),Type 2 diabetes mellitus with stage 2 chronic kidney disease, without long-term current use of insulin ([facility]) TAKE ONE CAPSULE BY MOUTH EVERY DAY 90 Capsule 1 01/25/2023 Active Pravastatin Sodium 40 MG Oral Tablet (Pravachol)Indicati ons:Type 2 diabetes mellitus with hemoglobin A1c goal of less than 7.0% ([facility]),Hyperlipidemi a with target LDL less than 100 TAKE ONE TABLET BY MOUTH AT BEDTIME 90 Tablet 1 01/25/2023 Active metFORMIN HCl ER 500 MG Oral Tablet Extended Release 24 Hour (Glucophage XR)Indications:Type 2 diabetes mellitus with stage 2 chronic kidney disease, without long-term current use of insulin ([facility]) TAKE TWO TABLETS BY MOUTH IN THE MORNING 180 Tablet 0 04/23/2023 Active Doxycycline Hyclate 100 MG Oral CapsuleIndications: Cellulitis of right lower extremity Take 1 Capsule by mouth in the morning and 1 Capsule before bedtime. Do all this for 10 days. Until gone.. 20 Capsule 0 06/20/2023 06/30/2023 Active documented as of this encounter (statuses as of 06/20/2023) Active Problems Problem Noted Date Diagnosed Date [...] as of this encounter (statuses as of 06/20/2023) Resolved Problems Problem Noted Date Diagnosed Date [...] as of this encounter (statuses as of 06/20/2023) Immunizations Name Administration Dates Next Due COVID-19 mRNA, LNP-s, No Pre serve, 2-Dose Series ([email or web address]) 07/03/2020 HEP A - Hepatitis A (Adult > 18 yrs) 10/13/2017, 03/08/2017 Hepatitis B, 20+ yrs 06/29/2017,01/26/2017,12/27 Pneumococcal Conjugate Vacci ne, 20-valent ([id number]) 08/24/2022 Pneumococcal Polysaccharide PPV23 (Pneumovax) 07/02/2011 Seasonal [...] on file documented as of this encounter Plan of Treatment Upcoming Encounters Date Type Department Care Team (Late st Contact Info) Description 06/22/2023 2:40 PM EDT Office Visit Wound Care, [facility] [address] [place] [address] Daisy Perez DPM [address] [place] [address] 07/12/2023 1:00 PM EDT Office Visit Hepatology, [facility] [address] [place] [address] Sena Hancock MD [address] [place] [address] 07/18/2023 11:20 AM EDT Office Visit Family Practice [facility] [address] [facility] [place] [address] Serene Lopez PA-C [address] [facility] [place] [address] 09/28/2023 9:30 AM EDT Office Visit [address] [place] [id number] Mar[address] [place] [id number] Pending Results Name Type Priority Associated Diagnoses Date /Time MYCODE SUBSEQUENT ADULT Lab Routine [employer] Other*[id number] 06/20/2023 12:27 PM EDT COMPREHENSIVE METABOLIC PANEL Lab Routine Cirrhosis of liver without ascites, unspecified hepatic cirrhosis type (HCC) Type 2 diabetes mellitus with stage 2 chronic kidney disease, without long-term current use of insulin (HCC) 06/20/2023 12:27 PM EDT LIPID PANEL WITH DIRECT LDL IF TG IS HIGH Lab Routine Hyperlipidemia with target LDL less than 100 06/20/2023 12:27 PM EDT HEMOGLOBIN A1C Lab Routine Type 2 diabetes mellitus with stage 2 chronic kidney disease, without long-term current use of insulin (HCC) 06/20/2023 12:27 PM EDT CBC WITH WBC DIFFERENTIAL Lab Routine Cellulitis of right lower extremity 06/20/2023 12:27 PM EDT MYCODE SST1 Lab Routine [employer] Other*[id number] 06/20/2023 12:27 PM EDT MYCODE SST2 Lab Routine [employer] Other*[id number] 06/20/2023 12:27 PM EDT CBC Lab Routine Cellulitis of right lower extremity 06/20/2023 12:27 PM EDT DIFFERENTIAL, AUTOMATED Lab Routine Cellulitis of right lower extremity 06/20/2023 12:27 PM EDT ALBUMIN / CREATININE RATIO, URINE Lab Routine Type 2 diabetes mellitus with stage 2 chronic kidney disease, without long-term current use of insulin (HCC) 06/20/2023 12:30 PM EDT Health Maintenance Due Date Last Done Comments DTaP,Tdap,and Td Vaccines (1 - Tdap) 1977 HPV/Co-Test 1988 Mammogram 1998 Cologuard 09/27/2003 Colonoscopy 09/27/2003 Sigmoidoscopy 09/27/2003 Colorectal Cancer Screening 04/16/2017 Fecal Occult Blood Test 04/16/2017 04/16/2016 Cervical Cancer Screening 01/19/2020 Pap Smear 01/19/2020 01/18/2017 COVID-19 Vaccine (2 - Pfizer risk series) 07/24/2020 07/03/2020 Depression Screening 02/20/2021 02/21/2020 Diabetic Eye Exam 01/12/2023 01/12/2022, , 11/25/2020, Additional history exists Albumin/Creatinine Ratio 08/25/2023 023, 08/24/2021, 08/21/2020, Additional history exists GFR 08/25/2023 08/24/2022, 08/0 04/2021, 08/24/2021, Additional history exists HbA1c 08/30/2023 03/01/2023, 08/03, 02/24/2022, Additional history exists Diabetic Foot Exam 03/01/2024 03/01/2023, 1 04/26/2021, 02/23/2021, Additional history exists Lipid Panel 08/25/2027 08/24/2022, 08/03, 08/21/2020, Additional history exists Hepatitis B Completed 06/29/2017, [...] Not on filedocumented as of this encounter Visit Diagnoses Diagnosis [employer] Other*[id number] Cirrhosis of liver without ascites, unspecified hepatic cirrhosis type (HCC) Type 2 diabetes mellitus with stage 2 chronic kidney disease, without long-term current use of insulin (HCC) Hyperlipidemia with target LDL less than 100 Other and unspecified hyperlipidemia Cellulitis of right lower extremity Cellulitis and abscess of leg, except foot documented in this encounter Advance Directives Latest Code Status on File Code Status Date Activated Date Inactivated Comments Full Code 07/11/2017 10:33 AM 07/11/2017 3:56 PM This o rder reflects the patients wishes and were consensually agreed upon. Care Teams Television Engineer Relationship Specialty Start Date End Date Jenaro Rollins MD [address] [place] [address] [place] [id number] PCP - General Family Medicine 12/14/13 documented as of this encounter
--- OUTSIDE RECORDS SUMMARY | 2023-06-25 13:05 | External Medical Summary | Summary of Care ---
Author Name Unknown Organization [facility] Address [address] [place] [address] Phone [phone] Care Team Providers Care Employment Consultant Name Role Phone Jenaro Rollins MD Primary Care Provider + [phone] Reason for Referral * Evaluate & Treat - Unlimited Visits (Within 10 days (routine)) - Authorized Specialty Diagnoses / Procedures Referred By Jovani kinsey Referred To Contact Physical Therapy / Physical Medicine And Rehab Diagnoses Type 2 diabetes mellitus with stage 2 chronic kidney disease, without long-term current use of insulin (HCC) CKD (chronic kidney disease), stage II Lymphedema Daisy Perez DPM [address] [place] [address] Referral ID Status Reason Start Date Expiration Date Visits Requested Visits Authorized [id number] Authorized Specialty Services Required 06/22/2023 [id number] Question Answer Referral Priority Within 10 days (routine) Where should this appointment be scheduled? External Comments Lymphedema therapy Reason for Visit * Reason Comments Wound Care Left leg lymphedema * Evaluate & Treat - Unlimited Visits (Within 3 days (urgent)) - Authorized Specialty Diagnoses / Procedures Referred By Jovani kinsey Referred To Contact Wound Care Diagnoses Cellulitis of right lower extremity Venous stasis dermatitis of both lower extremities Lymphedema Serene Lopez PA-C [address] [place] [address] Referral ID Status Reason Start Date Expiration Date Visits Requested Visits Authorized [id number] Authorized Specialty Services Required 06/20/[id number] Encounter Details Date Type Department Care Team (Late st Contact Info) Description 06/22/2023 2:40 PM EDT Office Visit Wound Care, [facility] [address] [place] [address] Daisy Perez DPM [address] [place] [address] Lymphedema*; Type 2 diabetes mellitus with stage 2 chronic kidney disease, without long-term current use of insulin ([facility]); CKD (chronic kidney disease), stage II Allergies Active Allergy Reactions Criticality Noted Date Comments Clindamycin 05/31/2017 Hives/ ER visit Glimepiride 05/03/2022 Empagliflozin 10/31/2018 Genital rash Sulfa Antibiotics Anaphylaxis 01/13/2007 documented as of this encounter (statuses as of 06/22/2023) Medications Medication Sig Dispensed Refills Start Date End Date Status OneTouch Ultra In Vitro Strip (Glucose Blood)Indications:T ype 2 diabetes mellitus with hemoglobin A1c goal of less than 7.0% ([facility]),Type 2 diabetes mellitus with stage 2 chronic kidney disease, without long-term current use of insulin ([facility]) Use to test blood sugar once a [...] A1c goal of less than 7.0% ([facility]),Type 2 diabetes mellitus with stage 2 chronic kidney disease, without long-term current use of insulin ([facility]) use with insulin twice daily 200 Each [...] without long-term current use of insulin ([facility]) inject 40 units under the skin twice daily 75 mL 1 01/20/2023 Active Ramipril 5 MG Oral Capsule (Altace)Indications :Type 2 diabetes mellitus with hemoglobin A1c goal of less than 7.0% ([facility]),Type 2 diabetes mellitus with stage 2 chronic kidney disease, without long-term current use of insulin ([facility]) TAKE ONE CAPSULE BY MOUTH EVERY DAY 90 Capsule 1 01/25/2023 Active Pravastatin Sodium 40 MG Oral Tablet (Pravachol)Indicati ons:Type 2 diabetes mellitus with hemoglobin A1c goal of less than 7.0% ([facility]),Hyperlipidemi a with target LDL less than 100 TAKE ONE TABLET BY MOUTH AT BEDTIME 90 Tablet 1 01/25/2023 Active metFORMIN HCl ER 500 MG Oral Tablet Extended Release 24 Hour (Glucophage XR)Indications:Type 2 diabetes mellitus with stage 2 chronic kidney disease, without long-term current use of insulin ([facility]) TAKE TWO TABLETS BY MOUTH IN THE MORNING 180 Tablet 0 04/23/2023 Active Doxycycline Hyclate 100 MG Oral CapsuleIndications: Cellulitis of right lower extremity Take 1 Capsule by mouth in the morning and 1 Capsule before bedtime. Do all this for 10 days. Until gone.. 20 Capsule 0 06/20/2023 06/30/2023 Active documented as of this encounter (statuses as of 06/22/2023) Active Problems Problem Noted Date Diagnosed Date [...] as of this encounter (statuses as of 06/22/2023) Resolved Problems Problem Noted Date Diagnosed Date [...] as of this encounter (statuses as of 06/22/2023) Immunizations Name Administration Dates Next Due COVID-19 mRNA, LNP-s, No Pre serve, 2-Dose Series ([employer]) 07/03/2020 HEP A - Hepatitis A (Adult > 18 yrs) 10/13/2017, 03/08/2017 Hepatitis B, 20+ yrs 06/29/2017,01/26/2017,12/27 Pneumococcal Conjugate Vacci ne, 20-valent ([id number]) 08/24/2022 Pneumococcal Polysaccharide PPV23 (Pneumovax) 07/02/2011 Seasonal [...] on file documented as of this encounter Patient Instructions * Patient Instructions* Princess Oates RN - 06/22/2023 3:17 PM EDT Referral to lymphedema clinic. They will call with appointment documented in this encounter Progress Notes * Daisy Perez DPM - 06/22/2023 3:07 PM EDT Images from the original note were not included. [facility] Wound Care Initial Consult [facility] Name: Juli Lewis : 1960 Date: 06/22/2023 CHIEF COMPLAINT: Lymphedema HISTORY OF PRESENT ILLNESS: Patient is a 62 year old female who presents today with complaints of lymphedema. She has a small opening to the posterior aspect of her right leg. She states she has never been treated for lymphedema. She used to wear compression socks, but eventually could not because of the size of her legs. She is currently taking Doxy from PCP. Denies any other complaints. She is a diabetic with CKD. Past Medical History: Diagnosis Date BMI 45.0-49.9, adult (HCC) CKD (chronic kidney disease) stage 2, GFR 60-89 ml/min 05/26/2015 CKD (chronic kidney disease), stage II 07/13/2018 CKD (chronic kidney disease), stage III (HCC) 05/07/2015 GFR 51 DM type 2 causing CKD stage 3 (HCC) DM type 2, goal A1c below 7 Facial cellulitis 04/20/2020 right facial cellulitis, [facility], Ceftriaxone, daptomycin, doxy Hyperglycemia 11/16/2013 [facility] ER for sugar of 500 Hyperlipidemia LDL goal < 100 Influenza A 05/26/2018 ER Lymphedema Morbid obesity with BMI of 45.0-49.9, adult ([facility]) Need for hepatitis C screening test 12/14/2013 Hepatitis C negative Neuropathy Portal hypertension (HCC) 01/19/2017 Rosacea Screening for HIV without presence of risk factors 05/07/2015 negative Sepsis ([facility]) 12/19/2016 admitted [facility], also ARF Sleep apnea not on a machine Thrombocytopenia ([facility]) 12/20/2016 89,000 Vitamin D deficiency Past Surgical History: Procedure Laterality Date DILATION AND CURETTAGE (D&C) 1985 D&C ECHO, COMPLETE (2D), TRANS-THORACIC N/A 12/23/2020 mild LV thickening, EF 55-59%, grade 1 diastolic dysfunction, LA and RA normal, aortic valve sclerosis EGD, FLEXIBLE, DIAGNOSTIC 02/02/2017 lower esophagus normal, antral erosions and erythema, no varices, /[facility] HYSTEROSCOPY W/BIOPSY AND/OR POLYPECTOMY W/WO D&C N/A 07/11/2017 HYSTEROSCOPY WITH BIOPSY AND/OR POLYPECTOMY WITH OR WITHOUT D&C performed by Sam Peoples, [facility] OR [facility] [place] BRAIN WITHOUT CONTRAST 12/20/2016 normal REMOVE CATARACT, INSERT LENS PROSTH Left 12/24/2020 REMOVE CATARACT, INSERT LENS PROSTH Right 01/14/2021 REMOVE GALLBLADDER 1984 Cholecystectomy, Open Family History Problem Relation Age of Onset Liver disease Mother cirrhosis, ? fatty liver hx of uncontrolled diabetes, at 81 Parkinsonism Father at age 81 Neuropathy Father Cancer Sister cervical Cancer Brother throat, age 65 Social History Socioeconomic History Marital status: Number of children: 3 Years of education: 12 Occupational History Occupation: on disability for chronic leg edema Comment: age 2007 Tobacco Use Smoking status: Never Smokeless tobacco: Never Vaping Use Vaping Use: Never used Substance and Sexual Activity Alcohol use: No Drug use: No Sexual activity: Not Currently Social History Narrative Born and raised in [facility] Determinants of Health Food Insecurity: No Food Insecurity (06/20/2023) Hunger Vital Sign Worried About Running Out of Food in the Last Year: Never true Ran Out of Food in the Last Year: Never true Current Outpatient Medications Medication Sig Dispense Refill Triamcinolone Acetonide 0.1 % External Ointment (Aristocort) Apply 2x daily to spots on R wrist/arms until resolved, then when flaring 454 g 1 Tacrolimus 0.1 % External Ointment (Protopic) Apply topically to affected area 2 times a day. Applythin layer to skin folds 2x daily with Desitin 40% cream (over the counter) over top 200 g 3 Clobetasol Propionate 0.05 % External Ointment (Temovate) apply to thickened areas on back 2 times daily until resolved, then when flaring. 60 g 0 Basaglar KwikPen 100 UNIT/ML Subcutaneous Solution Pen-injector (Insulin Glargine Solostar) inject 40 units under the skin twice daily 75 mL 1 Ramipril 5 MG Oral Capsule (Altace) TAKE ONE CAPSULE BY MOUTH EVERY DAY 90 Capsule 1 Pravastatin Sodium 40 MG Oral Tablet (Pravachol) TAKE ONE TABLET BY MOUTH AT BEDTIME 90 Tablet 1 metFORMIN HCl ER 500 MG Oral Tablet Extended Release 24 Hour (Glucophage XR) TAKE TWO TABLETS BY MOUTH IN THE MORNING 180 Tablet 0 Doxycycline Hyclate 100 MG Oral Capsule Take 1 Capsule by mouth in the morning and 1 Capsule beforebedtime. Do all this for 10 days. Until gone.. 20 Capsule 0 OneTouch Ultra In Vitro Strip (Glucose Blood) Use to test blood sugar once a day 100 Strip 3 BD Pen Needle Mini U/F 31G X 5 MM (Insulin Pen Needle) use with insulin twice daily 200 Each 3 No current facility-administered medications for this visit. ALLERGIES: Review of patient's allergies indicates: Allergen Reactions Clindamycin Hives/ ER visit Glimepiride Jardiance [Empagliflozin] Genital rash Sulfa [Sulfa Antibiotics] Anaphylaxis REVIEW OF SYSTEMS: CONSTITUTIONAL: No change in weight, No weakness, No fatigue, and No fevers, sweats, or chills EYE: No recent significant change in vision and No eye pain, redness, discharge EARS: No ear pain and No recent change in hearing NOSE: No history of frequent colds or sinusitis PULMONARY: No recent change in breathing CARDIOVASCULAR: No chest pain EXTREMITIES: Lymphedema noted with superficial wound to the RLE SKIN/INTEGUMENTARY: No rash and No itching NEUROLOGIC: Normal balance, No headaches, No seizures, and No weakness PSYCHIATRIC: No depression, No anxiety, and No psychosis PROBLEM FOCUSED PODIATRIC EXAM Vitals: There were no vitals filed for this visit. DP/PT pulses palpable. Current dressing: See Wound Assessment Dressing change frequency: every day RLE Compression: LLE Compression: RLE Wt Bearing Offloading: LLE Wt Bearing Offloading: RLE Non-Wt Bearing Offloading: LLE Non-Wt Bearing Offloading: Offloading Surface for Bed: Offloading Surface for Chair / Wheelchair: WOUND ASSESSMENT: Alteration in Skin Integrity Anterior;Lower;Right Leg (Active) Clinical Image 06/22/23 1452 Alteration in Skin Integrity Distal;Right Calf (Active) Clinical Image 06/22/23 1453 Wound Length (cm) 9 cm (Clustered open areas) 06/22/23 1453 Wound Width (cm) 3.5 cm 06/22/23 1453 Wound Depth (cm) 0.1 cm 06/22/23 1453 Yellow Fibrinous Slough (%) none 06/22/23 1453 Granulation Tissue (%) 100% 06/22/23 1453 Granulation Tissue Color pale/pink 06/22/23 1453 Drainage serous, moderate 06/22/23 1453 Odor (after cleansing wound) No 06/22/23 1453 Wound Surface Area (cm^2) 31.5 cm^2 06/22/23 1453 Wound Volume (cm^3) 3.15 cm^3 06/22/23 1453 Diagnostic Studies: None PROCEDURE: Wound location: Right posterior leg Character of Wound/Ulcer Pre Debridement: New No debridement performed. Assessment: 1. Type 2 diabetes mellitus with stage 2 chronic kidney disease, without long- term current use of insulin (HCC) 2. CKD (chronic kidney disease), stage II 3. Lymphedema Plan: - No debridement performed. - Continue with DSD and GEOVANNY bandages daily. These were dispensed today. - Referral for lymphedema clinic placed. Explained we do not treat Lymphedema. - Also explained this is a life long condition and will require some level of compression for life. - WBAT - Pt to RTC PRN. Instructed to call with any problems or questions. Daisy Perez DPM 06/22/2023 3:11 PM documented in this encounter Nursing Notes * Princess Oates RN - 06/22/2023 2:55 PM EDT Right lower leg very large edematous with lymphedema skin changes. Condition has been present for years. Pt currently taking Doxycycline given by PCP for increased drainage , odor and discomfort. Does not use diuretics or compression. documented in this encounter Miscellaneous Notes * Addendum Note - Princess Oates RN - 06/22/2023 3:53 PM EDTAddended by: PRINCESS OATES on: 06/22/2023 03:53 PM Modules accepted: Orders * Pt Handout (on AVS) - Princess Oates RN - 06/22/2023 3:15 PM EDT Images from the original note were not included. Lymphedema - Video This is a swelling of part of your body. Often, it involves an arm or a leg. Lymphedema is linked to improper drainage of your lymphatic system. This system of vessels, ducts and nodes carries infection-fighting lymph fluid throughout your body. To view the video go to this web address: [email or web address] Or, scan this QR code with your smart phone [employer]. * Pt Handout (on AVS) - Princess Oates RN - 06/22/2023 3:15 PM EDT Images from the original note were not included. [id number] Understanding Lymphedema Lymphedema is a buildup of lymph fluid that causes swelling. It can happen if lymph nodes or lymph vessels are blocked, removed, or damaged. Surgery and radiation to treat cancer can cause this damage. Then lymph fluid may collect and cause swelling in the treated parts of your body. This can happen any time, even many years after treatment. After cancer treatment that removes or damages lymph nodes, you're at risk for lymphedema for the rest of your life. But you can do things to help reduce your risk. And there are ways to reduce or relieve swelling if it happens. If left untreated, lymphedema can get worse. It may not go away. It can also lead to other problems, such as trouble moving that part of your body, pain, and infections. What is the lymphatic system? The lymphatic system is part of your immune system. It?s a network of tiny vessels and small organscalled lymph nodes. These nodes are found along the vessels. This system carries lymph throughout your body. Lymph is a clear fluid that contains proteins, salt, water, and white blood cells. It alsocarries waste from your body cells. The lymphatic system helps protect your body and keep it healthy. It helps keep your fluids at the correct level. The nodes filter lymph to help fight infection. How lymphedema happens Lymph nodes and lymph vessels can be blocked by the cancer itself. Also, lymph nodes and vessels are removed during surgery to treat many kinds of cancer. Or they might be treated with radiation. This scars and damages them. It disrupts the normal flow of lymph fluid. So instead of lymph draining into your body like it should, the fluid collects in the fatty tissues under your skin. This causes swelling. The changes in the flow of lymph also keep the lymph from being filtered the way it should.This can increase the risk for infection, skin sores, and other skin changes. It can affect wound healing in the swollen areas. Lymphedema can happen in 1 or both arms or legs, the groin, the face, the head and neck, chest, or the belly (abdomen). It depends on which part of your body was treated. The swelling can get worse over time and cause problems. Symptoms of lymphedema Lymphedema can happen in your arm, armpit, leg, groin, abdomen, chest, head, neck, face, or other parts of the body. Common symptoms can include: Swelling A feeling of fullness or heaviness Skin that feels stiff, tight, or hard Weakness Aching, itching, burning, or pain Skin that looks red Trouble bending or moving a joint in your fingers, wrist, elbow, shoulder, or ankle Shoes, clothing, bra, or jewelry that feels tight Voice change Trouble swallowing or speaking Lymphedema can happen after surgery or radiation treatment for nearly any type of cancer, but it?s most common with: Breast cancer Prostate cancer Cancer in the pelvic area (bladder, penile, testicular, ovarian, endometrial, vulvar, or cervical cancer) Lymphoma Melanoma Head and neck cancer Can lymphedema be prevented? Not all experts agree on what might help reduce risk. But one of the most important things you can do is watch for signs of lymphedema. As you heal, be aware of how your hands, arms, chest, legs, andfeet normally feel and look. Compare the sides of your body. Watch for changes. If you notice any changes, let your provider know right away. The sooner any swelling is treated, the better the chances of reducing it and keeping it from getting worse. Here are some other things to do: Get follow-up care after cancer treatment. See your healthcare provider on a regular basis for checkups. Ask about your risk for lymphedema. You may want to ask about seeing a certified lymphedemaspecialist. They can teach you more about how to try to prevent lymphedema. Protect your arms. For arms at risk for lymphedema, ask your healthcare provider if it is OK to have your blood pressure taken, blood drawn, or an IV (intravenous) line put in the arm. Prevent infection and inflammation. Wash, treat, and cover any skin wounds, even a small cut, scratch, or burn. Keep your skin clean and use lotion to keep it moist. Check your skin often. Get treatment right away at the first sign of infection. Be active. Ask your healthcare team about the type of exercise that?s best for you. A lymphedemaspecialist can help you learn safe exercises. Manage your weight. Talk with your provider about what?s a healthy weight for you. Ask them for help with how to get to or stay at that weight. When to call your healthcare provider Lymphedema needs to be treated right away. Call your healthcare provider if you have any of these: Symptoms of lymphedema Fever of 100.4 F (38 C) or as advised by your healthcare provider Red blotches, warmth, or pain in the area Cracking or peeling skin New unexplained pain in the part of your body at risk for lymphedema Last Reviewed Date: 03/04/202319998367-0624 [employer]. All rights reserved. This information is not intended as a substitute for professional medical care. Always follow your healthcare professional's instructions. * Pt Handout (on AVS) - Princess Oates RN - 06/22/2023 3:14 PM EDT [id number] Lymphedema The lymphatic system is made up of lymph vessels and lymph nodes, which carry a fluid called lymph.Lymph consists of waste from the cells. This fluid drains through lymph vessels under the skin to nearby lymph nodes. Lymph nodes filter waste products from the cells. They kill any bacteria present before returning the lymph fluid to your blood circulation. When the lymph vessels are damaged, lymph fluid can't drain from tissues. This causes the lymph fluid to back up, causing swelling. This most often affects the arms or legs. Signs of lymphedema include heaviness, stiffness, or aching in an arm or leg. The limb may swell. The skin might look red. Shoes and rings may feel tight. Ankles and wrists might become less flexible. The most common cause of damage to the lymph system is surgery or radiation for breast or testicular cancer. Other causes include repeated skin infections (cellulitis), minor, or injury to the arms or legs. It can take many years for symptoms of lymphedema to appear. Once present, lymphedema can become an ongoing (chronic) condition. This means the problem can be managed but not cured. Treatment often includes using compression garments, getting massage, and doing special exercises. Talk with your healthcare provider about these treatments and the best treatment plan for you. Ask your healthcare provider about a referral to a certified lymphedema therapist. This is a provider whospecializes in lymphedema teaching and management. Home care You can help keep the condition from getting worse. Follow all instructions you have been given. Doyour exercises and wear your compression garments as recommended. Also, care for yourself as advised by your healthcare provider. Be careful with your skin. Small skin injuries like a cut, burn, or insect bite are more likely to cause a skin infection. Take special care to not get injured. If you have any signs of infection,call your healthcare provider right away. Take care of your skin and nails. Use a moisturizer on dry skin. Wear protective gloves when doing chores, such as gardening. Don't wear tight clothing or jewelry on the affected arm or leg. Don't carry bags or other weight with the affected arm. Shave with an electric razor instead of a razor blade. If at all possible, don?t have blood pressure taken, get shots, or have blood drawn in the affected arm. If a leg is involved, don?t cross your legs when sitting. Don't go barefoot. Don't use hot tubs, steam rooms, or saunas. If you are at risk for lymphedema but have not developed it, these tips can help also help prevent it. Follow your healthcare provider's instructions. Follow-up care Follow up with your healthcare provider, or as advised. Lymphedema can change the appearance of your body. This can be emotionally difficult to adjust to. You may benefit from a support group where practical advice and emotional support is offered. Also consider getting one-on-one counseling. When to get medical advice Call your healthcare provider right away if any of the following occur: Swelling gets worse Rash, blistering, or other skin changes on the affected limb Area of skin becomes red, painful, or warm to the touch A wound increases in pain, becomes warm, drains pus, or sends out red streaks Fever of 100.4F (38C) or higher, or as directed by your healthcare provider Last Reviewed Date: 06/02/202219999399-3181 [employer]. All rights reserved. This information is not intended as a substitute for professional medical care. Always follow your healthcare professional's instructions. documented in this encounter Plan of Treatment Upcoming Encounters Date Type Department Care Team (Late st Contact Info) Description 07/12/2023 1:00 PM EDT Office Visit Hepatology, [address] [place] [address] Sena Hancock MD [address] [place] [address] 07/18/2023 11:20 AM EDT Office Visit Family Practice [facility] [address] [facility] [place] [address] Serene Lopez PA-C [address] [facility] [place] [id number] 09/28/2023 9:30 AM EDT Office Visit Family Medicine [address] [phone] [address] [place] [address] Scheduled Orders Name Type Priority Associated Diagnoses Orde r Schedule LYMPHEDEMA THERAPY,EA 15MIN Procedures Routine Type 2 diabetes mellitus with stage 2 chronic kidney disease, without long-term current use of insulin (HCC) CKD (chronic kidney disease), stage II Lymphedema Ordered: 06/22/2023 Scheduled Referrals Name Type Priority Associated Diagnoses Orde r Schedule PHYSICAL THERAPY REFERRAL OP Referral Within 10 days (routine) Type 2 diabetes mellitus with stage 2 chronic kidney disease, without long-term current use of insulin (HCC) CKD (chronic kidney disease), stage II Lymphedema Ordered: 06/22/2023 Health Maintenance Due Date Last Done Comments [...] as of this encounter Visit Diagnoses Diagnosis Lymphedema- Primary Other lymphedema Type 2 diabetes mellitus with stage 2 chronic kidney disease, without long-term current use of insulin (HCC) CKD (chronic kidney disease), stage II Chronic kidney disease, Stage II (mild) documented in this encounter Advance Directives Latest Code Status on File Code Status Date Activated Date Inactivated Comments Full Code 07/11/2017 10:33 AM 07/11/2017 3:56 PM This o rder reflects the patients wishes and were consensually agreed upon. Care Teams Employment Consultant Relationship Specialty Start Date End Date Jenaro Rollins MD [address] [place] [address] [place] [address] PCP - General Family Medicine 12/14/13 documented as of this encounter
--- OUTSIDE RECORDS SUMMARY | 2023-06-25 13:05 | External Medical Summary ---
Author Name Unknown Address Unknown Organization K09:[facility] [place] [address] Laboratory Report Ordering Provider Test Date Status DEQUAN ROCHE 06/20/2023 12:27:12 Final Observation Date Value Abnormality Reference (Units ) Status Nucleated erythrocytes/100 leukocytes [Ratio] in Blood by Automated count 06/20/2023 12:27:12 Final Performing Location [facility] [place] [address]
--- OUTSIDE RECORDS SUMMARY | 2023-06-25 13:05 | External Medical Summary ---
Author Name Unknown Address Unknown Organization K09:[facility] [place] [address] [place] [address] Laboratory Report Ordering Provider Test Date Status DEQUAN ROCHE 06/20/2023 12:27:12 Final Observation Date Value Abnormality Reference (Units ) Status BUN 06/20/2023 12:27:12 11 6-20 (mg/dL) Final Creatinine 06/20/2023 12:27:12 0.9 0.5-1.0 (mg/dL) Final Glomerular filtration rate/1.73 sq M.predicted [Volume Rate/Area] in Serum, Plasma or Blood by Creatinine-based formula (CKD-EPI) 06/20/2023 12:27:12 70 >=60 (mL/min) Final eGFR is calculated based on the CKD-EPI 2020 equation SODIUM 06/20/2023 12:27:12 141 135-146 (m mol/L) Final Potassium 06/20/2023 12:27:12 4.1 3.5-5.1 (m mol/L) Final Cl 06/20/2023 12:27:12 103 98-107 (mm ol/L) Final CO2 06/20/2023 12:27:12 28 22-32 (mmo l/L) Final Anion gap 06/20/2023 12:27:12 10 7-15 (mmol /L) Final Glucose 06/20/2023 12:27:12 91 70-120 (mg /dL) Final Albumin 06/20/2023 12:27:12 3.5 Below low normal 3.8 -5.0 (g/dL) Final AST (Aspartate aminotransferase) 06/20/2023 12:27:12 33 10-35 (U/L) Fin al Alk Phos 06/20/2023 12:27:12 118 35-130 (U/ L) Final Bilirubin, Total 06/20/2023 12:27:12 1.7 Above high no rmal <=1.2 (mg/dL) Final Calcium 06/20/2023 12:27:12 9.8 8.4-10.2 ( mg/dL) Final Protein 06/20/2023 12:27:12 7.8 6.0-8.3 (g /dL) Final ALT (Alanine aminotransferase) 06/20/2023 12:27:12 21 10-35 (U/L) Mitchell taylor Performing Location [facility] [place] [address]
--- OUTSIDE RECORDS SUMMARY | 2023-06-25 13:05 | External Medical Summary | Summary of Care ---
Author Name Unknown Organization [facility] Address [address] [place] [address] Phone [phone] Care Team Providers Care Mica Miner Name Role Phone Jenaro Rollins MD Primary Care Provider + [phone] Reason for Referral * Evaluate & Treat [...] Lymphedema Daisy Perez DPM [address] [place] [address] Referral ID Status Reason Start Date Expiration Date Visits Requested Visits Authorized [id number] Authorized Specialty Services Required 06/22/2023 999 999 [...] lower extremities Lymphedema Serene Lopez PA-C [address] [place] [address] Referral ID Status Reason Start Date Expiration Date Visits Requested Visits Authorized [id number] Authorized Specialty Services Required 06/20/[phone] Encounter Details Date Type Department Care Team (Late st Contact Info) Description 06/22/2023 2:40 PM EDT Office Visit Wound Care, [facility] [address] [place] [address] Daisy Perez DPM [address] [place] [address] Lymphedema*; Type 2 diabetes mellitus with stage 2 chronic kidney disease, without long-term current use of insulin ([facility]); CKD (chronic kidney disease), stage [...] hemoglobin A1c goal of less than 7.0% ([facility]),Type 2 diabetes mellitus with stage 2 chronic kidney disease, without long-term current use of insulin ([facility]) Use to test blood sugar [...] hemoglobin A1c goal of less than 7.0% ([facility]),Type 2 diabetes mellitus with stage 2 chronic kidney disease, without long-term current use of insulin ([facility]) use with insulin twice daily [...] disease, without long-term current use of insulin ([facility]) inject 40 units under the skin twice daily 75 mL 1 01/20/2023 Active Ramipril 5 MG Oral Capsule (Altace)Indications :Type 2 diabetes mellitus with hemoglobin A1c goal of less than 7.0% ([facility]),Type 2 diabetes mellitus with stage 2 chronic kidney disease, without long-term current use of insulin ([facility]) TAKE ONE CAPSULE BY MOUTH EVERY DAY 90 Capsule 1 01/25/2023 Active Pravastatin Sodium 40 MG Oral Tablet (Pravachol)Indicati ons:Type 2 diabetes mellitus with hemoglobin A1c goal of less than 7.0% ([facility]),Hyperlipidemi a with target LDL less than 100 TAKE ONE TABLET BY MOUTH AT BEDTIME 90 Tablet 1 01/25/2023 Active metFORMIN HCl ER 500 MG Oral Tablet Extended Release 24 Hour (Glucophage XR)Indications:Type 2 diabetes mellitus with stage 2 chronic kidney disease, without long-term current use of insulin ([facility]) TAKE TWO TABLETS BY MOUTH [...] mRNA, LNP-s, No Pre serve, 2-Dose Series ([employer]) 07/03/2020 HEP A - Hepatitis A (Adult > 18 yrs) 10/13/2017, 03/08/2017 Hepatitis B, 20+ yrs 06/29/2017,01/26/2017,12/27 Pneumococcal Conjugate Vacci ne, 20-valent ([id number]) 08/24/2022 Pneumococcal Polysaccharide PPV23 (Pneumovax) 07/02/2011 Seasonal [...] original note were not included. [facility] Wound Care Initial Consult [facility] Name: Juli Lewis : 1960 Date: 06/22/2023 [...] 7 Facial cellulitis 04/20/2020 right facial cellulitis, [facility], Ceftriaxone, daptomycin, doxy Hyperglycemia 11/16/2013 [facility] ER for sugar of 500 Hyperlipidemia LDL goal < 100 Influenza A 05/26/2018 ER Lymphedema Morbid obesity with BMI of 45.0-49.9, adult ([facility]) Need for hepatitis C screening test 12/14/2013 Hepatitis C negative Neuropathy Portal hypertension (HCC) 01/19/2017 Rosacea Screening for HIV without presence of risk factors 05/07/2015 negative Sepsis ([facility]) 12/19/2016 admitted [facility], also ARF Sleep apnea not on a machine Thrombocytopenia ([facility]) 12/20/2016 89,000 Vitamin D deficiency Past Surgical History: Procedure Laterality Date DILATION AND CURETTAGE (D&C) 1985 D&C ECHO, COMPLETE (2D), TRANS-THORACIC N/A 12/23/2020 mild LV thickening, EF 55-59%, grade 1 diastolic dysfunction, LA and RA normal, aortic valve sclerosis EGD, FLEXIBLE, DIAGNOSTIC 02/02/2017 lower esophagus normal, antral erosions and erythema, no varices, /[facility] HYSTEROSCOPY W/BIOPSY AND/OR POLYPECTOMY W/WO D&C N/A 07/11/2017 HYSTEROSCOPY WITH BIOPSY AND/OR POLYPECTOMY WITH OR WITHOUT D&C performed by Sam Peoples, [facility] [place] [facility] CONTRAST 12/20/2016 normal [...] Social History Narrative Born and raised in [facility] Determinants of Health Food Insecurity: No Food [...] the video go to this web address: [email or web address] Or, scan this QR code with your smart phone [email or web address]. * Pt Handout (on AVS) - Princess Oates RN - 06/22/2023 3:15 PM EDT Images from the original note were not included. [id number] Understanding Lymphedema Lymphedema is a buildup of [...] at risk for lymphedema Last Reviewed Date: 03/04/202319996953-6382 The [employer]. All rights reserved. This information is not intended as a substitute for professional medical care. Always follow your healthcare professional's instructions. * Pt Handout (on AVS) - Princess Oates RN - 06/22/2023 3:14 PM EDT [id number] Lymphedema The lymphatic system is made up [...] by your healthcare provider Last Reviewed Date: 06/02/202219997203-8138 The [employer]. All rights reserved. This information is not intended as a substitute for professional medical care. Always follow your healthcare professional's instructions. documented in this encounter Plan of Treatment Upcoming Encounters Date Type Department Care Team (Late st Contact Info) Description 07/12/2023 1:00 PM EDT Office Visit Hepatology, [address] [place] [address] Sena Hancock MD [address] [place] [address] 07/18/2023 11:20 AM EDT Office Visit Family Practice [facility] [place] [address] [facility] [place] [address] Serene Lopez PA-C [address] [facility] [place] [address] 09/28/2023 9:30 AM EDT Office Visit Family Medicine [address] [phone] [place] [address] Scheduled Orders Name Type Priority Associated Diagnoses [...] and were consensually agreed upon. Care Teams Mica Miner Relationship Specialty Start Date End Date Jenaro Rollins MD [address] [place] [address] [place] [address] PCP - General Family Medicine 12/14/13 documented as of this encounter
--- OUTSIDE RECORDS SUMMARY | 2023-06-25 13:05 | External Medical Summary ---
Author Name Unknown Address Unknown Organization K01:[facility] - [address] [facility] [address] Laboratory Report Ordering Provider Test Date Status DEQUAN ROCHE 06/20/2023 12:27:12 Final Observation Date Value Abnormality Reference (Units ) Status Triglyceride 06/20/2023 12:27:12 68 <=174 ( mg/dL) Final Triglyceride Reference Range s (mg/dL):
<150 Acceptable
150-174 Borderline high
175-499 High
>=500 Very high Cholesterol 06/20/2023 12:27:12 128 <200 (mg /dL) Final Total Cholesterol Reference Ranges (mg/dL):
<200 Desirable
200-239 Borderline high
>=240 High HDL 06/20/2023 12:27:12 65 >49 (mg/dL ) Final HDL Cholesterol Reference Ra nges (mg/dL):
>=60 High (Desirable)
<50 Low (Undesirable) For Females
<40 Low (Undesirable) For Males NON-HDL CHOLESTEROL 06/20/2023 12:27:12 63 <=159 (mg/dL) Final Non-HDL Cholesterol Referenc e Range (mg/dL):
<100 Target level for high risk ASCVD patient
<130 Optimal for general population
130-159 Near optimal for general population
160-189 Borderline High
190-219 High
>=220 Very High LDL, (calculated) 06/20/2023 12:27:12 49 <= 129 (mg/dL) Final LDL Cholesterol Reference Ra nges (mg/dL):
<70 Target level for high risk ASCVD patient
<100 Optimal for general population
100-129 Near optimal for general population
130-159 Borderline high
160-189 High
>=190 Very high Performing Location [facility] [place] [address] [place] [address]
--- OUTSIDE RECORDS SUMMARY | 2023-06-25 13:05 | External Medical Summary | Summary of Care ---
Author Name Unknown Organization [facility] Address [address] [place] [address] Phone [phone] Care Team Providers Care User Support Analyst Supervisor Name Role Phone Jenaro Rollins MD Primary Care Provider + [phone] Reason for Visit * Reason Comments Wound Care Left leg lymphedema * Evaluate & Treat - Unlimited Visits (Within 3 days (urgent)) - Authorized Specialty Diagnoses / Procedures Referred By Jovani kinsey Referred To Contact Wound Care Diagnoses Cellulitis of right lower extremity Venous stasis dermatitis of both lower extremities Lymphedema Serene Lopez PA-C [address] [place] [address] Referral ID Status Reason Start Date Expiration Date Visits Requested Visits Authorized [id number] Authorized Specialty Services Required 06/20/[phone] Encounter Details Date Type Department Care Team (Late st Contact Info) Description 06/22/2023 2:40 PM EDT Office Visit Wound Care, [address] [place] [address] Daisy Perez DPM [address] [place] [address] Lymphedema*; Type 2 diabetes mellitus with stage 2 chronic kidney disease, without long-term current use of insulin (HCC); CKD (chronic kidney disease), stage II Allergies [...] hemoglobin A1c goal of less than 7.0% ([facility]),Type 2 diabetes mellitus with stage 2 chronic kidney disease, without long-term current use of insulin ([facility]) Use to test blood sugar [...] hemoglobin A1c goal of less than 7.0% ([facility]),Type 2 diabetes mellitus with stage 2 chronic kidney disease, without long-term current use of insulin ([facility]) use with insulin twice daily [...] disease, without long-term current use of insulin ([facility]) inject 40 units under the skin twice daily 75 mL 1 01/20/2023 Active Ramipril 5 MG Oral Capsule (Altace)Indications :Type 2 diabetes mellitus with hemoglobin A1c goal of less than 7.0% ([facility]),Type 2 diabetes mellitus with stage 2 chronic kidney disease, without long-term current use of insulin ([facility]) TAKE ONE CAPSULE BY MOUTH EVERY DAY 90 Capsule 1 01/25/2023 Active Pravastatin Sodium 40 MG Oral Tablet (Pravachol)Indicati ons:Type 2 diabetes mellitus with hemoglobin A1c goal of less than 7.0% (HCC),Hyperlipidemi a with target LDL less than 100 TAKE ONE TABLET BY MOUTH AT BEDTIME 90 Tablet 1 01/25/2023 Active metFORMIN HCl ER 500 MG Oral Tablet Extended Release 24 Hour (Glucophage XR)Indications:Type 2 diabetes mellitus with stage 2 chronic kidney disease, without long-term current use of insulin (HCC) TAKE TWO TABLETS BY MOUTH IN THE [...] Date CKD (chronic kidney disease), stage II Cirrhosis of liver without ascites 12/19/2020 Advanced [...] Per Obesity protocol #1 Endometrium, polyp 07/04/2017 01/15/201 9 CKD (chronic kidney disease) stage 2, [...] mRNA, LNP-s, No Pre serve, 2-Dose Series ([employer]an[employer]) 07/03/2020 HEP A - Hepatitis A (Adult > 18 yrs) 10/13/2017, 03/08/2017 Hepatitis B, 20+ yrs 06/29/2017,01/26/2017,12/27 Pneumococcal Conjugate Vacci ne, 20-valent ([id number]) 08/24/2022 Pneumococcal Polysaccharide PPV23 (Pneumovax) 07/02/2011 Seasonal [...] encounter Patient Instructions * Patient Instructions* Princess Moreno RN - 06/22/2023 3:17 PM EDT Referral to lymphedema clinic. They will call with appointment documented in this encounter Progress Notes * Daisy Perez DPM - 06/22/2023 3:07 PM EDT Images from the original note were not included. [facility] Wound Care Initial Consult [facility] Name: Juli Lewis : 1960 Date: 06/22/2023 [...] DM type 2 causing CKD stage 3 ([facility]) DM type 2, goal A1c below 7 Facial cellulitis 04/20/2020 right facial cellulitis, [facility], Ceftriaxone, daptomycin, doxy Hyperglycemia 11/16/2013 [facility] ER for sugar of 500 Hyperlipidemia LDL goal < 100 Influenza A 05/26/2018 ER Lymphedema Morbid obesity with BMI of 45.0-49.9, adult (HCC) Need for hepatitis C screening test 12/14/2013 Hepatitis C negative Neuropathy Portal hypertension (HCC) 01/19/2017 Rosacea Screening for HIV without presence of risk factors 05/07/2015 negative Sepsis (HCC) 12/19/2016 admitted [facility], also ARF Sleep apnea not on a machine Thrombocytopenia (HCC) 12/20/2016 89,000 Vitamin D deficiency Past Surgical History: Procedure Laterality Date DILATION AND CURETTAGE (D&C) 1985 D&C ECHO, COMPLETE (2D), TRANS-THORACIC N/A 12/23/2020 mild LV thickening, EF 55-59%, grade 1 diastolic dysfunction, LA and RA normal, aortic valve sclerosis EGD, FLEXIBLE, DIAGNOSTIC 02/02/2017 lower esophagus normal, antral erosions and erythema, no varices, /[facility] HYSTEROSCOPY W/BIOPSY AND/OR POLYPECTOMY W/WO D&C N/A 07/11/2017 HYSTEROSCOPY WITH BIOPSY AND/OR POLYPECTOMY WITH OR WITHOUT D&C performed by Sam Peoples, [facility] [place] [facility] CONTRAST 12/20/2016 normal REMOVE [...] Social History Narrative Born [place] raised in [place] Social Determinants of Health Food Insecurity: No Food [...] without long- term current use of insulin ([facility]) 2. CKD (chronic kidney disease), stage II 3. Lymphedema Plan: - No debridement performed. - Continue with DSD and GEOAVNNY bandages daily. These were dispensed today. - [...] in this encounter Nursing Notes * Princess Moreno, MISHEL - 06/22/2023 2:55 PM EDT Right lower leg very large edematous with lymphedema skin changes. Condition has been present for years. Pt currently taking Doxycycline given by PCP for increased drainage , odor and discomfort. Does not use diuretics or compression. documented in this encounter Miscellaneous Notes * Pt Handout (on AVS) - Princess Moreno RN - 06/22/2023 3:15 PM EDT Images [...] the video go to this web address: [email or web address] Or, scan this QR code with your smart phone 5 Scre[employer] * Pt Handout (on AVS) - Princess Moreno RN - 06/22/2023 3:15 PM EDT Images from the original note were not included. [id number] Understanding Lymphedema Lymphedema is a buildup of [...] at risk for lymphedema Last Reviewed Date: 03/04/202319995279-9741 The [employer]. All rights reserved. This information is not intended as a substitute for professional medical care. Always follow your healthcare professional's instructions. * Pt Handout (on AVS) - Princess Moreno RN - 06/22/2023 3:14 PM EDT [id number] Lymphedema The lymphatic system is made up [...] by your healthcare provider Last Reviewed Date: 06/02/202219990689-6162 The [employer]. All rights reserved. This information is not intended as a substitute for professional medical care. Always follow your healthcare professional's instructions. documented in this encounter Plan of Treatment Upcoming Encounters Date Type Department Care Team (Late st Contact Info) Description 07/12/2023 1:00 PM EDT Office Visit Hepatology, [facility] [address] [facility] [place] [address] Sena Hancock MD [address] [facility] [place] [address] 07/18/2023 11:20 AM EDT Office Visit Family Practice [facility] [address] [facility] [place] [address] Serene Lopez PA-C [address] [facility] [place] [address] 09/28/2023 9:30 AM EDT Office Visit Family Medicine [address] [phone] Mar[address] [place] [address] Scheduled Orders Name Type Priority Associated Diagnoses [...] and were consensually agreed upon. Care Teams User Support Analyst Supervisor Relationship Specialty Start Date End Date Jenaro Rollins MD [address] [place] [address] [place] [id number] PCP - General Family Medicine 12/14/13 documented as of this encounter
--- OUTSIDE RECORDS SUMMARY | 2023-06-25 13:05 | External Medical Summary ---
Author Name Unknown Address Unknown Organization K01:[facility] [place] - [address] [facility] [address] [facility] [address] Laboratory Report Ordering Provider Test Date Status DEQUAN ROCHE 06/20/2023 12:27:12 Final Observation Date Value Abnormality Reference (Units ) Status HbA1C 06/20/2023 12:27:12 6.0 Above high normal 4. 0-5.6 (%) Final The use of HbA1c to monitor glycemic status is based on normal hemoglobin and HbA composition. This test should not be used in patients with abnormal hemoglobin that affects the half life of the red blood cell or the in vivo glycation rates. Glucose, estimated average 06/20/2023 12:27:12 126 Above high normal <126 (mg/dL) Mitchell taylor Performing Location [facility] [place] - [address] [facility] [address]
--- OUTSIDE RECORDS SUMMARY | 2023-06-25 13:05 | External Medical Summary ---
Author Name Unknown Address Unknown Organization K01:[facility] [address] [place] [address] Laboratory Report Ordering Provider Test Date Status DEE LOYOLA 06/20/2023 12:27:12 Final Observation Date Value Abnormality Reference (Units ) Status MYCODE SPECIMEN-SST 06/20/2023 12:27:12 Freezing of extracted DNA, whole blood and/or serum. Final Performing Location [facility] - [address] [facility] [address]
--- OUTSIDE RECORDS SUMMARY | 2023-06-25 13:05 | External Medical Summary ---
Author Name Unknown Address Unknown Organization K09:[facility] [place] [address] Laboratory Report Ordering Provider Test Date Status DEQUAN ROCHE 06/20/2023 12:27:12 Final Observation Date Value Abnormality Reference (Units ) Status WBC, Total 06/20/2023 12:27:12 8.97 4.00-10.8 0 (K/uL) Final RBC 06/20/2023 12:27:12 3.90 3.85-5.15 (M/uL) Final Hemoglobin 06/20/2023 12:27:12 12.7 12.0-15.3 (g/dL) Final HCT 06/20/2023 12:27:12 38.1 36.0-45.2 (%) Final MCV 06/20/2023 12:27:12 97.7 81.5-97.5 (fL) Final MCH 06/20/2023 12:27:12 32.6 27.0-34.0 (pg) Final MCHC 06/20/2023 12:27:12 33.3 32.0-36.0 (g/dL) Final RDW 06/20/2023 12:27:12 15.4 11.5-15.5 (%) Final Platelets 06/20/2023 12:27:12 90 Below low normal 140 -400 (K/uL) Final Results rechecked.
null MPV 06/20/2023 12:27:12 8.7 6.6-11.1 ( fL) Final Performing Location [facility] [address]
--- OUTSIDE RECORDS SUMMARY | 2023-06-25 13:05 | External Medical Summary ---
Author Name Unknown Address Unknown Organization K01:[facility]ORATORY [facility] [place] - [address] [address] Laboratory Report Ordering Provider Test Date Status DEQUAN ROCHE 06/20/2023 12:30:37 Final Normal: <30 mg/g creatinine< br/>High: 30-300 mg/g creatinine
Very High: >300 mg/g creatinine
Nephrotic: >2200 mg/g creatinine Observation Date Value Abnormality Reference (Units ) Status Albumin, Urine 06/20/2023 12:30:37 3.37 (mg/dL) Final Creatinine, Urine 06/20/2023 12:30:37 79 (mg/dL) Final Albumin/Creatinine [Mass Ratio] in Urine 06/20/2023 12:30:37 43 Above high normal <30 (mg/g Creat) Final Performing Location LAB[facility]ATORY [facility] - [address] [place] [address]
--- OUTSIDE RECORDS SUMMARY | 2023-06-25 13:05 | External Medical Summary | Summary of Care ---
Author Name Unknown Organization [facility] Address [address] [place] [address] Phone [phone] Care Team Providers Care What Job Titles Mean Name Role Phone Jenaro Rollins MD Primary Care Provider + [phone] Reason for Referral * Evaluate & Treat [...] Lymphedema Daisy Perez DPM [address] [place] [address] Referral ID Status Reason Start Date Expiration Date Visits Requested Visits Authorized [id number] Authorized Specialty Services Required 06/22/2023 999 999 [...] lower extremities Lymphedema Serene Lopez PA-C [address] [place] [address] Referral ID Status Reason Start Date Expiration Date Visits Requested Visits Authorized [id number] Authorized Specialty Services Required 06/20/2023 999 999 Encounter Details Date Type Department Care Team (Late st Contact Info) Description 06/22/2023 2:40 PM EDT Office Visit Wound Care, [facility] [address] [place] [address] Daisy Perez DPM [address] [place] [id number] Lymphedema*; Type 2 diabetes mellitus with stage 2 chronic kidney disease, without long-term current use of insulin ([facility]); CKD (chronic kidney disease), stage II Allergies [...] hemoglobin A1c goal of less than 7.0% ([facility]),Type 2 diabetes mellitus with stage 2 chronic kidney disease, without long-term current use of insulin ([facility]) Use to test blood sugar once a [...] hemoglobin A1c goal of less than 7.0% ([facility]),Type 2 diabetes mellitus with stage 2 chronic kidney disease, without long-term current use of insulin ([facility]) use with insulin twice daily 200 Each [...] disease, without long-term current use of insulin ([facility]) inject 40 units under the skin twice daily 75 mL 1 01/20/2023 Active Ramipril 5 MG Oral Capsule (Altace)Indications :Type 2 diabetes mellitus with hemoglobin A1c goal of less than 7.0% ([facility]),Type 2 diabetes mellitus with stage 2 chronic kidney disease, without long-term current use of insulin ([facility]) TAKE ONE CAPSULE BY MOUTH EVERY DAY 90 Capsule 1 01/25/2023 Active Pravastatin Sodium 40 MG Oral Tablet (Pravachol)Indicati ons:Type 2 diabetes mellitus with hemoglobin A1c goal of less than 7.0% ([facility]),Hyperlipidemi a with target LDL less than 100 TAKE ONE TABLET BY MOUTH AT BEDTIME 90 Tablet 1 01/25/2023 Active metFORMIN HCl ER 500 MG Oral Tablet Extended Release 24 Hour (Glucophage XR)Indications:Type 2 diabetes mellitus with stage 2 chronic kidney disease, without long-term current use of insulin ([facility]) TAKE TWO TABLETS BY MOUTH IN THE [...] mRNA, LNP-s, No Pre serve, 2-Dose Series (Data Maid) 07/03/2020 HEP A - Hepatitis A (Adult > 18 yrs) 10/13/2017, 03/08/2017 Hepatitis B, 20+ yrs 06/29/2017,01/26/2017,12/27 Pneumococcal Conjugate Vacci ne, 20-valent ([id number]) 08/24/2022 Pneumococcal Polysaccharide PPV23 (Pneumovax) 07/02/2011 Seasonal [...] from the original note were not included. [facility] Wound Care Initial Consult [facility] Name: Juli Lewis : 1960 Date: 06/22/2023 [...] 7 Facial cellulitis 04/20/2020 right facial cellulitis, [facility], Ceftriaxone, daptomycin, doxy Hyperglycemia 11/16/2013 [facility] ER for sugar of 500 Hyperlipidemia LDL goal < 100 Influenza A 05/26/2018 ER Lymphedema Morbid obesity with BMI of 45.0-49.9, adult ([facility]) Need for hepatitis C screening test 12/14/2013 Hepatitis C negative Neuropathy Portal hypertension (HCC) 01/19/2017 Rosacea Screening for HIV without presence of risk factors 05/07/2015 negative Sepsis ([facility]) 12/19/2016 admitted [facility], also ARF Sleep apnea not on a machine Thrombocytopenia ([facility]) 12/20/2016 89,000 Vitamin D deficiency Past Surgical History: Procedure Laterality Date DILATION AND CURETTAGE (D&C) 1985 D&C ECHO, COMPLETE (2D), TRANS-THORACIC N/A 12/23/2020 mild LV thickening, EF 55-59%, grade 1 diastolic dysfunction, LA and RA normal, aortic valve sclerosis EGD, FLEXIBLE, DIAGNOSTIC 02/02/2017 lower esophagus normal, antral erosions and erythema, no varices, /[facility] HYSTEROSCOPY W/BIOPSY AND/OR POLYPECTOMY W/WO D&C N/A 07/11/2017 HYSTEROSCOPY WITH BIOPSY AND/OR POLYPECTOMY WITH OR WITHOUT D&C performed by Sam Peoples, [facility] [place] [facility] [place] BRAIN WITHOUT CONTRAST 12/20/2016 normal REMOVE [...] Social History Narrative Born and raised in [facility] Determinants of Health Food Insecurity: No Food [...] Notes * Princess Oates RN - 06/22/2023 4:17 PM EDT Provided patient with Lymphedema education. Right lower leg wrapped with GEOVANNY bandages from just behind toes to under knee. DSD over posterior lower calf. [facility] * Princess Oates RN - 06/22/2023 2:55 [...] the video go to this web address: [email or web address] Or, scan this QR code with your smart phone 2019 [employer]. * Pt Handout (on AVS) - Princess Oates RN - 06/22/2023 3:15 PM EDT Images from the original note were not included. [id number] Understanding Lymphedema Lymphedema is a buildup of [...] at risk for lymphedema Last Reviewed Date: 03/04/202319999533-0498 [employer]. All rights reserved. This information is not intended as a substitute for professional medical care. Always follow your healthcare professional's instructions. * Pt Handout (on AVS) - Princess Oates RN - 06/22/2023 3:14 PM EDT [id number] Lymphedema The lymphatic system is made up [...] by your healthcare provider Last Reviewed Date: 06/02/202219991551-5786 [employer]. All rights reserved. This information is not intended as a substitute for professional medical care. Always follow your healthcare professional's instructions. documented in this encounter Plan of Treatment Upcoming Encounters Date Type Department Care Team (Late st Contact Info) Description 07/12/2023 1:00 PM EDT Office Visit Hepatology, [facility] [address] [facility] [place] [address] Sena Hancock MD [address] [place] [address] 07/18/2023 11:20 AM EDT Office Visit Family Practice [facility] [address] [facility] [place] [address] Serene Lopez PA-C [address] [facility] [place] [address] 09/28/2023 9:30 AM EDT Office Visit Family Medicine [address] [id number] [address] [place] [address] Scheduled Orders Name Type Priority Associated Diagnoses [...] and were consensually agreed upon. Care Teams What Job Titles Mean Relationship Specialty Start Date End Date Jenaro Rollins MD [address] [place] [address] [place] [phone] PCP - General Family Medicine 12/14/13 documented as of this encounter
--- OUTSIDE RECORDS SUMMARY | 2023-06-25 13:05 | External Medical Summary ---
Author Name Unknown Address Unknown Organization K01:[facility] [place] [address] [place] [address] Laboratory Report Ordering Provider Test Date Status DEE LOYOLA 06/20/2023 12:27:12 Final Observation Date Value Abnormality Reference (Units ) Status MYCODE SPECIMEN-SST 06/20/2023 12:27:12 Freezing of extracted DNA, whole blood and/or serum. Final Performing Location [facility] [place] [address] [facility] [address]
--- NOTE | 2023-06-25 13:07 | History & Physical Report ---
Date of Service June 25, 2023 Assessment & Plan (1) Nausea, vomiting and diarrhea: Plan: 62 y/o female with insulin-requiring DM2, cirrhosis, chronic lymphedema, HTN, chronic thrombocytopenia, and other history as outlined who presented to the ED today with multiple symptoms including the acute onset of N/V/D last night, chest pain, hyperventilation and dyspnea this morning. Currently in the ED, most of her symptoms are improving, particularly after she received a dose of lorazepam. She had a sick contact with gastroenteritis last week. She was recently placed on a course of doxycycline for chronic LE lymphedema/wound. Her family notes multiple life stressors within the last two weeks, which they are concerned may be contributing to her symptoms. - Observe on med telemetry overnight - Trend troponin, repeat EKG in the AM and with any recurrent chest pain - Update ECHO - last done in 2020 - Labs in the AM - CBC, BMP (2) Side effect of medication: Plan: Suspect doxycycline contributing to pt's GI distress - will hold for now and change to Rocephin (3) Anxiety: Plan: Suspect component of anxiety related to multiple life stressors is contributing to her symptoms, especially since she has had significant relief with anxiolytic in the ED (4) Chest pain: Plan: Observing overnight on telemetry though CP has improved with lorazepam Trend troponin Update ECHO (5) Cirrhosis: Plan: Likely secondary to NAFLD - does not recall hx of ascites or HE. Last EGD in [facility] to screen for EV in 2017 and was negative. Suspect as the etiology for mildly prolonged INR, thrombocytopenia, and mild bilirubin elevation (6) Cellulitis of leg, right: Plan: Has been treated with doxycycline - holding for now due to side effects Changing to Rocephin as pt has responded well to this previously (7) Diastolic dysfunction: Plan: Last ECHO in 2020 - mildly abnormal LV diastolic function (grade I) (8) DM type 2 (diabetes mellitus, type 2): Plan: Last A1c on 06/20/23 was 6.0 Hold Metformin Diabetic diet, BSG ACHS Basal insulin/sliding scale while admitted (9) HTN (hypertension): Plan: Chronic, stable (10) Morbid obesity: (11) Thrombocytopenia: Plan: Chronic, likely due to underlying cirrhosis Plan Pt seen and reviewed with collaborating physician, Dr. Flores. Plan of care discussed and as outlined above. Code Status: Full code DVT Prophylaxis: SCDs for now, pt with thrombocytopenia related to cirrhosis Likely home within 1-2 days pending clinical course Magnolia Chambers PA-C History of Present Illness Chief Complaint: vomiting, diarrhea, dizziness Primary Care Provider: NICOL PCP 62 yo obese well controlled diabetic female presents to the ER for a cardiac assessment. Yesterday evening, she was coming home from [place] and developed acute nausea and vomiting, requiring her to stop at least three times on the ride home. By the time she got home, she was feeling better, tolerated a small amount of water, and went to bed feeling okay. Then around 0100, she woke up with intermittent sharp abdominal pains followed by profuse diarrhea with urgency and incontinence as well as additional episodes of emesis. She reports that the diarrhea but black in color but denies hematochezia. Denies recent pepto or iron supplements. She then became short of breath and was feeling lightheaded so decided to come to the ED for evaluation. On the way here, she developed chest pain, neck tight, reported to ER provider that she was going to pass out. Her last episode of emesis was around 7:30 am, last episode of diarrhea was 9 am. She has been on doxycycline for possible cellulitis of chronic right leg wound due to lymphedema since 06/19. She has a history of lymphedema and lower extremity wounds in the past with morbid obesity. She was around her grandson last week who had a 24 hour GI bug. She notes a loss of appetite for the last three months with intermittent nausea, but no significant vomiting until the last 24 hours. Denies significant weight loss despite limited oral intake. Her family notes she has been under significant stress over the last two weeks including an unexpected family , a separation in the family, and her recent visit with a test equipment mechanic, Dr. Ibrahim, for cirrhosis. Per pt and her family, she was was told that she was going to within the next 3- 6 months and was not a candidate for transplant due to her diabetes and splenomegaly. She is scheduled for a second opinion from hepatology in July. N otably, her symptoms seem to be improving with the Ativan given in the ED. She denies chest pain at present. Her family is very concerned that she may be dehydrated as she has been consuming very limited fluids at home. She has not checked her sugars at home recently but her last A1c was 6.0 on 06/20/23. Allergies Allergy/AdvReac Type Severity Reaction Status Date / Time Sulfa (Sulfonamide Allergy Intermediate SWELLING, Verified 06/25/23 13:16 Antibiotics) HIVES empagliflozin AdvReac Severe Vaginal Verified 06/25/23 13:16 [From Jardiance] irritation Home Medications Medication Instructions Recorded Confirmed Type pravastatin 40 mg tablet 40 mg PO HS 05/26/18 06/25/23 History ramipril 5 mg capsule 5 mg PO QAM 04/20/20 06/25/23 History insulin glargine 100 unit/mL (3 40 unit (0.4 mL) subcut BID #15 mL 04/25/20 06/25/23 Rx mL) subcutaneous pen (Basaglar KwikPen U-100 Insulin) triamcinolone acetonide 0.1 % 1 applic topical DAILY PRN Rash 05/01/22 06/25/23 History topical cream metformin 500 mg tablet,extended 1,000 mg PO DAILY 05/14/22 06/25/23 History release 24 hr clobetasol 0.05 % topical ointment 1 applic topical BID PRN Rash 06/25/23 06/25/23 History doxycycline hyclate 100 mg capsule 0 mg PO BID Wound Care 06/25/23 06/25/23 History doxycycline hyclate 50 mg capsule 0 mg PO BID Rosacea 06/25/23 06/25/23 History tacrolimus 0.1 % topical ointment 1 applic topical BID 06/25/23 06/25/23 History Past Med/Surg History Medical History Hyperlipidemia Lymphedema Sleep apnea Rosacea Morbid obesity Cirrhosis Peripheral neuropathy Spleen enlargement Chronic kidney disease STAGE 2 History of asthma Thrombocytopenia HTN (hypertension) DM type 2 (diabetes mellitus, type 2) Surgical History History of tooth extraction History of cataract surgery RT/LEFT H/O dilation and curettage History of hysteroscopy S/P cholecystectomy Family History (Updated 06/25/23 @ 14:11 by Alexia Chambers PA-C) Sister Cervical cancer Mother Liver disease Other No family history of adverse response to anesthesia Social History Smoking Status: Never smoker Second Hand Exposure: No; Hx Alcohol Use: No Hx Substance Use: No Preferred Language: Upper Sorbian Communication Ability: Effective Visual Impairment: No Limitations Hearing Ability: Normal Manager Lpn Required: No Beliefs That Will Affect Care: None Current Living Situation: Alone Other Information That Helps Us Care for You: No Feels Safe at Home: Yes Safety Concerns: Feels Safe At This Time Assistive Devices: Walker Review of Systems Review of Systems: All systems reviewed & are unremarkable except as noted in HPI & below Constitutional: + sweats, + fatigue and + anorexia; no f ever and no chills Eyes: no diplopia Ear, Nose, Mouth, Throat: + sore throat (relates to vomiting); no nasal congestion, no nasal discharge and no sinus pain/pressure Respiratory: as per Subjective / HPI and + cough Cardiovascular: as per Subjective / HPI; no palpitations Gastrointestinal: + abdominal pain, + nausea, + vomiting a nd + diarrhea/loose stools Genitourinary: no dysuria and no hematuria Musculoskeletal: + back pain and + neck pain Integumentary: + rash (multiple chronic) Neurologic: + generalized weakness, + dizziness and + headache(s) Psychiatric: + anxiety Physical Exam Physical Exam: General: awake, alert, NAD HEENT: no scleral icterus, moist oral mucosa Neck: trachea midline Heart: regular, +murmur Lungs: CTA bilaterally, no W/R/R Abdomen: soft, obese, +BS Extremities: bilateral LE lymphedema, right LE with dressing Neurologic: oriented x 3, no asterixis, UE strength equal bilaterally, able to spell WORLD forward and backward without difficulty Results & Data Results & Data Vital Signs (Past 12 Hours) Vital Signs Temp Pulse Resp BP Pulse Ox O2 Del Method 06/25/23 11:26 88 06/25/23 11:12 36.8 C 84 18 149/70 H 100 Room Air Laboratory Results Short CBC 06/25/23 Range/Units 11:27 WBC 7.90 (4.8-10.8) K/ul Hgb 12.1 (12.0-16.0) g/dl Hct 35.8 L (37.0-47.0) % Plt Count 71 L (130-400) K/uL BMP 06/25/23 11:27 Sodium 137 Potassium 3.8 Chloride 105 Carbon Dioxide 24 BUN 17 Creatinine 1.04 Glucose 191 H Calcium 8.5 L Liver Function 06/25/23 Range/Units 11:27 Total Bilirubin 2.8 H (0.2-1.0) mg/dl AST 29 (13-39) U/L ALT 15 (7-52) U/L Alkaline Phosphatase 82 (34-104) U/L Albumin 3.1 L (3.4-5.0) gm/dl Diagnostic Findings Chest X-Ray 06/25/23 11:17 XR chest 1V portable CLINICAL HISTORY: Chest pain, nonspecific COMPARISON STUDY: Chest radiograph May 15, 2022. FINDINGS: Lung volumes are normal. There is no pneumothorax or pleural effusion. Cardiomegaly is unchanged. Mediastinal contours are stable. Symmetric densities projecting over the lower lungs likely reflects overlying soft tissues. Subtle interstitial prominence. No evidence for overt pulmonary edema. IMPRESSION: 1. Mild interstitial prominence. This may reflect pulmonary vascular congestion. An infectious process could appear similar although is considered less likely. 2. Stable cardiomegaly. ACT 112: Negative or not required by law. Electronically signed by: Junior Isaacs M.D. 06/25/2023 12:48 PM Medications Administered Discontinued Medications Lorazepam (Lorazepam 1 Mg/1 Ml Syr Ed Inj Use) 1 mg IV ONE STA Stop: 06/25/23 13:04 Last Admin: 06/25/23 13:10 Dose: 1 mg Documented By: CAROL Supervising Physician Co-Signing Physician Notes I have seen and examined the patient and have discussed the case with the provider above. I have reviewed the advanced practitioner's documentation, and I agree with, and take responsibility for that plan of care. 62-year-old morbidly obese diabetic female presents to the ER with multiple issues. Yesterday evening she developed acute nausea and vomiting that kept her up until late in the evening. She then woke up with sharp abdominal pains followed by diarrhea with no improvement in the pain despite bowel movement. Subsequently on the way to the ER she developed chest pain as noted above. Multiple episodes of emesis and diarrhea overnight and she is reporting her chronic abdominal pain has worsened today. CAT scan with contrast of a/p reveals no acute pathology and no evidence of ascites in the setting of known cirrhosis. Patient's family has had a that was sudden last week where this family member from acute GI bleeding and liver disease. There is a lot of misinformation and what the patient is saying today including the fact that she has a history of kidney cancer 4 years ago was never treated which is not in the record, and that a physician told her she had 3 to 6 months to live given her comorbidities along with the fact that she has a laceration of her bowel. Family members in the room are concerned and were not privy to the recent outpatient appointments where patient received these updates. She has notes dating back to 2021 where she will refuse colonoscopy because a friend had a complication. She appears very anxious today with ER notes reporting that she was hyperventilating, clinically improved with Ativan. Anxiety is likely contributing to her chest discomfort and overall illness and family members are agreeing with this. Diarrhea is described as blackish in color and foul-smelling. Patient and valente alfordy are concerned about active GI bleeding although no gross blood was seen. CBC is within normal limits and patient is hemodynamically stable and this was reiterated to patient and family. Hemoccult of stools was also ordered for patient comfort and reassurance. She also has pulmonary vascular congestion on chest x-ray. She denies respiratory symptoms but does report being acutely short of breath today more so than her baseline. Normally she reports being able to ambulate within her apartment and go room to room without becoming winded. Today she walked to the bedside restroom and came back and was winded. She typically ambulates with a cane. Cardiac workup so far is unremarkable with a RBBB seen on EKG. An echo has been ordered. She continues to be nauseous requiring the sick bag during this examination. On exam she is ill-appearing. Vitals are stable. She has a 3 out of 6 systolic ejection murmur on her left sternal border and S1-S2 heard with regular rate and rhythm. She has no evidence of pitting edema but does have a wound within an area of very macerated skin, likely with some psoriatic component given her history. There is a serous drainage from this but no pus is evident. There is a small area of erythema proximal to the macerated area on the anterior lower right leg that may be consistent with cellulitis. There is also an increased warmth to touch of the right leg compared to the left. Lungs are CTA throughout. She has no increased work of breathing. There is no wheezing, rhonchi or rales. Abdomen is obese, soft and ND. Abdomen is diffusely tender to palpation in all quadrants when in a supine position. She appears to have acute vomiting and diarrhea in the setting of multiple chronic issues including chronic cirrhosis, chronic undiagnosed abdominal pain for >10 yrs per her report, morbid obesity, untreated diagnosed UJAN, chronic skin issues with known psoriasis, lymphedema/lipidema and possibly a new RLE cellulitis with a wound, well controlled diabetes and hyperlipidemia. Recent doxycycline may be contributing to symptoms, she may have a GI infection, or she may be having a reaction to stressors with the loss of her mom suddenly last week from health issues. Agree with switching oral doxycycline to empiric Rocephin, and continuing supportive care efforts for her GI illness. She doesn't use anything to manage her abdominal pain at home, and I advised her son that I would really hesitate to start her on any narcotic therapy unless she were severely uncomfortable. Stool culture pending. She will need a PCP follow up regarding getting a CPAP, and monitoring of her chronic issues. She is hooked in with [facility] hepatology already and has a visit scheduled with them next month. Her chest pain is resolved and appears to have been noncardiac in nature. Total bilirubin is slightly elevated which may be related to her underlying liver disease; it is 2.8 and has been this elevated in the past. Will repeat this in the morning. Her acute SOB may be due to acute illness, however, she has evidence of congestion on her CXR so will obtain echo and repeat CXR in the morning. I went back through her outpatient chart and called her son, Merrick back to discuss these plans again and update him with the CT results. He verbalized that his questions were all answered and we will continue to see how she does clinically. DO Mark I spent a total [id number] coordinating, documenting, and providing care for this patient excluding time spent in the performance of separately billed services (4) Chest pain Chest pain type: unspecified Qualified Code(s): R07.9 - Chest pain, unspeci fied (5) Cirrhosis Ascites presence: without ascites Hepatic cirrhosis type: unspecified hepatic cirrhosis Qualified Code(s): K74.60 - Unspecified cirrhosis of liver (8) DM type 2 (diabetes mellitus, type 2) Chronic kidney disease stage: stage 2 (mild) Diabetes mellitus complication detail: with chronic kidney disease Diabetes mellitus complication status: with kidney complications Diabetes mellitus correction insulin use: with terminal superintendent use Qualified Code(s): E11.22 - Type 2 diabetes mellitus with diabetic chronic kidney disease; N18.2 - Chronic kidney disease, stage 2 (mild); Z79.4 - terminal superintendent (current) use of insulin (9) HTN (hypertension) Hypertension type: primary hypertension Qualified Code(s): I10 - Essential (primary) hypertension
[2023-06-25] MEDS: LORazepam 1 MG/1 ML SYR ED Inj Use IV STA (13:10)
--- NOTE | 2023-06-25 13:28 | Electrocardiogram Report ---
Test Reason : Blood Pressure : / mmHG Vent. Rate : 085 BPM Atrial Rate : 085 BPM P-R Int : 188 ms QRS Dur : 124 ms QT Int : 418 ms P-R-T Axes : 059 088 048 degrees QTc Int : 497 ms Normal sinus rhythm Right bundle branch block Abnormal ECG When compared with ECG of 16-MAY-2022 11:14, No significant change Confirmed by Miky Carrero ([id number]) on 06/25/2023 1:27:41 PM Referred By: Confirmed By:Miky Carrero
--- NOTE | 2023-06-25 13:30 | Electrocardiogram Report ---
Test Reason : Blood Pressure : / mmHG Vent. Rate : 084 BPM Atrial Rate : 084 BPM P-R Int : 182 ms QRS Dur : 122 ms QT Int : 420 ms P-R-T Axes : 063 074 047 degrees QTc Int : 496 ms Normal sinus rhythm Right bundle branch block Abnormal ECG When compared with ECG of 25-JUN-2023 11:19, No significant change was found Confirmed by Miky Carrero ([id number]) on 06/25/2023 1:30:30 PM Referred By: REFERRED SELF Confirmed By:Miky Carrero
[2023-06-25] MEDS ORDERED: DEXTROSE 50% 50 ML SYRINGE IV PRN (15:55)
[2023-06-25] MEDS ORDERED: CARBOHYDRATES FOR HYPOGLYCEMIA PO PRN (15:55)
[2023-06-25] MEDS ORDERED: ACETAMINOPHEN 325 MG TAB PO PRN (15:55)
[2023-06-25] MEDS ORDERED: GLUCOSE 10 TAB/TUBE PO PRN (15:55)
[2023-06-25] MEDS ORDERED: GLUCOSE 40% GEL 15 GM TUBE PO PRN (15:55)
[2023-06-25] MEDS ORDERED: NITROGLYCERIN SL 0.4 MG/TAB TAB SL PRN (15:55)
[2023-06-25] MEDS ORDERED: PROMETHAZINE HCL 25 MG TAB PO PRN (15:55)
[2023-06-25] MEDS ORDERED: GLUCAGON FOR INJ 1 MG VIAL SQ PRN (15:55)
[2023-06-25] MEDS: OPTIRAY 350 500ml IV ONE (16:59)
[2023-06-25] MEDS: cefTRIAXone SODIUM 2,000 MG in DEXTROSE 5 % MINI-B 50 ML IV SCH (17:13)
--- NOTE | 2023-06-25 17:44 | CT Scan Report ---
CT OF THE ABDOMEN AND PELVIS WITH CONTRAST CLINICAL HISTORY: Abdominal pain. COMPARISON STUDY: CT of the abdomen and pelvis March 06, 2021. TECHNIQUE: Following IV administration of 113 mL of Optiray, axial images of the abdomen and pelvis w ere obtained from the lung bases to the proximal femurs. Images were reviewed in the axial, sagittal, and coronal planes. IV contrast was administered without complication. Automated exposure control w as utilized for the study. A dose lowering technique was utilized adhering to the principles of BRENDEN Pantoja. CT DOSE: 1324.46 mGy.cm FINDINGS: Lung bases are unremarkable. No pneumatosis, free air or portal venous gas is present. Ther e is no biliary ductal dilatation status post cholecystectomy. The liver is cirrhotic. No hepatic les ions are identified on the venous phase exam. Splenomegaly is unchanged. Abdominal and pelvic varices are similar to prior exam. Trace upper abdominal ascites. There is no ascites. Adrenal glands, kidne ys and pancreas are unremarkable. There is no evidence for a bowel obstruction. The caliber and wall thickness of small and large bowel are normal. Main, left and right portal veins are patent. Superior mesenteric vein is patent. No acute fractures are identified within visual skeletal structures. Mini mal stranding within the paracolic gutters and mesentery is likely related to portal hypertension. IMPRESSION: 1. Cirrhotic liver with manifestations of portal hypertension including splenomegaly, varices formati on and trace upper abdominal ascites. 2. No acute process within the abdomen or pelvis. 3. No bowel obstruction. No bowel wall thickening. ACT 112: Negative or not required by law. Electronically signed by: Junior Isaacs M.D. 06/25/2023 5:42 PM
[2023-06-25] MEDS: INSULIN ASPART PER UNIT CHARGE SC SCH (17:49)
[2023-06-25] MEDS: LANTUS PER UNIT CHARGE SQ SCH (21:09)
[2023-06-26 06:14] LABS: Hematocrit (blood only) 30.2 % (37.0-47.0); Hemoglobin 10.2 g/dl (12.0-16.0); Mean Corpuscular Hemoglobin 32.5 pg (25.0-34.0); Mean Corpuscular Hgb Conc 33.8 g/dL (32.0-36.0); Mean Corpuscular Volume 96.2 fL (80.0-100.0); Mean Platelet Volume 8.8 fL (9.4-12.4); Platelet Count 56 K/uL (130-400); RDW Coefficient of Variation 15.1 % (11.5-14.5); RDW Standard Deviation 52.9 fL (36.4-46.3); Red Blood Count 3.14 M/uL (4.20-5.40); White Blood Count 5.01 K/ul (4.8-10.8)
[2023-06-26 07:49] LABS: Adenovirus F 40/41 PCR Not Detected (NotDetected); Astrovirus PCR Not Detected (NotDetected); Campylobacter PCR Not Detected (NotDetected); Cryptosporidium PCR Not Detected (NotDetected); Cyclospora cayetanensis PCR Not Detected (NotDetected); Entamoeba histolytica PCR Not Detected (NotDetected); Enteroaggregative E.coli(EAEC) Not Detected (NotDetected); Enteropathogenic E.coli (EPEC) Not Detected (NotDetected); Enterotoxigenic E.coli (ETEC) Not Detected (NotDetected); Giardia lamblia PCR Not Detected (NotDetected); Plesiomonas shigelloides PCR Not Detected (NotDetected); Rotavirus A PCR Not Detected (NotDetected); Salmonella PCR Not Detected (NotDetected); Sapovirus PCR Not Detected (NotDetected); Shiga-like Toxin E.coli (STEC) Not Detected (NotDetected); Shigella/Enteroinvasive E.coli Not Detected (NotDetected); Vibrio cholerae PCR Not Detected (NotDetected); Vibrio species PCR Not Detected (NotDetected); Yersinia enterocolitica PCR Not Detected (NotDetected)
[2023-06-26 08:17] LABS: Norovirus GI/GII PCR DETECTED (NotDetected)
[2023-06-26 08:45] LABS: Alanine Aminotransferase 14 U/L (7-52); Albumin Level 2.7 gm/dl (3.4-5.0); Alkaline Phosphatase 55 U/L (34-104); Anion Gap 4 (3-11); Aspartate Aminotransferase 37 U/L (13-39); BUN Creatinine Ratio 17.4 (10-20); Bilirubin,Total 1.6 mg/dl (0.2-1.0); Blood Urea Nitrogen 16 mg/dl (6-23); Calcium 8.1 mg/dl (8.6-10.3); Carbon Dioxide 27 mmol/L (21-32); Chloride 106 mmol/L (98-107); Creatinine Clr Calc Pharmacy 87.8 ml/min; Est GFR (African American) 76.3 ml/min; Est GFR (Non-African American) 65.8 ml/min; Glucose 116 mg/dl (70-99(Fasting)); Potassium 4.1 mmol/L (3.5-5.1); Sodium 137 mmol/L (136-145); Total Protein 6.1 gm/dl (6.0-8.3)
[2023-06-26] MEDS: PRAVASTATIN SOD 40 MG TAB PO SCH (09:12)
[2023-06-26] MEDS: ENALAPRIL MALEATE 10 MG TAB PO SCH (09:12)
--- NOTE | 2023-06-26 09:18 | XRay Report ---
XR chest 1V portable CLINICAL HISTORY: followup pulmonary congestion TECHNIQUE: Single frontal radiograph of the chest was obtained. Comparison: Comparison is made to chest radiograph 06/25/2023 FINDINGS: No lines and tubes are seen. Cardiomegaly is noted. The lungs are clear. No evidence of pleural effus ion or pneumothorax. IMPRESSION: Cardiomegaly is seen. Previously noted vascular prominence has resolved. ACT 112: Negative or not required by law. Electronically signed by: Esteban Tavarez M.D. 06/26/2023 9:15 AM
--- NOTE | 2023-06-26 12:54 | Hospitalist Progress Note ---
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 At presentation in the ED, most of her symptoms were reported to be improving, particularly after she received a dose of lorazepam. 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 She was recently placed on a course of doxycycline for chronic LE lymphedema/wound. Her family notes multiple life stressors within the last two weeks, which they are concerned may be contributing to her symptoms. She is being managed for the following: Nausea, vomiting and diarrhea: Norovirus related gastroenteritis Patient reports improving nausea and vomiting and would like to advance diet. Can advance diet as tolerated. Initial cultures revealed norovirus positive. Patient with liquidy stool, but patient overall feels getting some better. Patient still feels weak. PT/OT Symptomatic management. Monitor labs and replete electrolytes as appropriate. Concern of chest symptoms: At presentation. Troponin trends negative. EKG without acute ST or T changes. Echo has been sent, pending. Continue telemetry monitoring. Patient with no chest pain. Side effect of medication: Suspected doxycycline contributing to pt's GI distress - held at admission and changed to Rocephin. Now that it is evident her GI symptoms are viral gastroenteritis related, can resume doxycycline upon discharge. Patient has been explained to continue to take doxycycline with ample water and stay upright for half hour after taking the medication. Anxiety: Suspect component of anxiety related to multiple life stressors is contributing to her symptoms, especially since she has had significant relief with anxiolytic in the ED. Can use prn vistaril or low dose buspar on dc. Other chronic medical conditions: Continue with/resume home meds as and when able. Cirrhosis: Secondary to NAFLD. Does not recall history of ascites or hepatic encephalopathy. Last ECG in epic to screen for EV in 2016 and was negative. S uspect as the etiology for mildly prolonged INR, thrombocytopenia, and mild bilirubin elevation. Cellulitis of leg, right: Was being treated for doxycycline prior to arrival, can continue the course upon discharge, currently on Rocephin while in the hospital. Diastolic dysfunction: Echo in 2020 with mildly abnormal LV diastolic function. Patient appears euvolemic now. Monitor for volume overload. T2DM: A1c of 6 on 06/20/2023. Hold home metformin. Sliding scale insulin while in hospital HTN: Chronic, stable. Morbid obesity: Lifestyle modification encouraged. Thrombocytopenia: Chronic, likely due to underlying cirrhosis DVT prophylaxis: SCDs patient with thrombocytopenia related to cirrhosis. CODE STATUS: Full code Dispo: PT/OT, CM to assist with DC planning. Admission and Anticipated Discharge Date Admission Date: June 25, 2023 Subjective Patient was seen and examined at bedside. Patient was lying in bed, on room air, NAD. Patient's 3 sons at bedside, were also updated on the plan of care. Patient reports having large liquid bowel movements, reports feeling weak, denies chest pain. Denies febrile illness. Reports chronic cough. Patient denies any febrile illness or pain or burning with passing urine. Patient would like to advance diet, RN communicated to advance diet as tolerated. Physical Exam Physical Exam: GENERAL: Alert and oriented x3. NAD, on RA. HEENT: No pallor, no icterus. Pupils equal, round and reactive to light. Oral mucosa moist. NECK: No JVD, no neck masses. HEART: S1 and S2 heard. Regular rate and rhythm. + murmur, no gallop. RESPIRATORY SYSTEM: Normal AP diameter. No accessory muscle use. No wheezing, no crackles. ABDOMEN: Soft, bowel sounds present, nontender but minimal discomfort on exam, no distention. CENTRAL NERVOUS SYSTEM: No facial droop. Speech is clear. Obeys simple commands. Moves extremities. EXTREMITIES: ble lymphedema, no erythema seen. Results & Data Results & Data Vital Signs (Past 12 Hours) Vital Signs Temp Pulse Pulse Resp BP Pulse Ox O2 Del Method 06/26/23 11:43 36.7 C 73 16 129/70 96 Room Air 06/26/23 10:05 Room Air 06/26/23 08:08 36.6 C 75 20 153/70 H 95 Room Air 06/26/23 07:10 76 06/26/23 02:33 36.6 C 77 16 129/68 95 Room Air
--- NOTE | 2023-06-26 15:02 | Electrocardiogram Report ---
Test Reason : Blood Pressure : / mmHG Vent. Rate : 073 BPM Atrial Rate : 073 BPM P-R Int : 182 ms QRS Dur : 134 ms QT Int : 436 ms P-R-T Axes : 042 030 030 degrees QTc Int : 480 ms Poor data quality, interpretation may be adversely affected Sinus rhythm Right bundle branch block Abnormal ECG When compared with ECG of 25-JUN-2023 13:05, No significant change Confirmed by Miky Carrero ([id number]) on 06/26/2023 3:01:45 PM Referred By: REFERRED SELF Confirmed By:Miky Carrero
[2023-06-27 06:45] LABS: Hematocrit (blood only) 30.3 % (37.0-47.0); Hemoglobin 10.2 g/dl (12.0-16.0); Mean Corpuscular Hemoglobin 32.4 pg (25.0-34.0); Mean Corpuscular Hgb Conc 33.7 g/dL (32.0-36.0); Mean Corpuscular Volume 96.2 fL (80.0-100.0); Mean Platelet Volume 9.2 fL (9.4-12.4); Platelet Count 54 K/uL (130-400); RDW Coefficient of Variation 15.1 % (11.5-14.5); RDW Standard Deviation 52.5 fL (36.4-46.3); Red Blood Count 3.15 M/uL (4.20-5.40); White Blood Count 5.31 K/ul (4.8-10.8)
[2023-06-27 07:09] LABS: BUN Creatinine Ratio 18.8 (10-20); Creatinine Clr Calc Pharmacy 84.1 ml/min; Est GFR (African American) 72.4 ml/min; Est GFR (Non-African American) 62.5 ml/min; Magnesium 1.7 mg/dl (1.7-2.4)
[2023-06-27] MEDS: MAGNESIUM SULFATE / D5W 1 GM/100 ML BAG IV SCH (09:06)
--- NOTE | 2023-06-27 13:51 | Electrocardiogram Report ---
Test Reason : Blood Pressure : / mmHG Vent. Rate : 071 BPM Atrial Rate : 071 BPM P-R Int : 202 ms QRS Dur : 136 ms QT Int : 444 ms P-R-T Axes : 038 065 030 degrees QTc Int : 482 ms Normal sinus rhythm Right bundle branch block Abnormal ECG When compared with ECG of 26-JUN-2023 12:34, Nonspecific T wave abnormality, improved in Anterior leads Confirmed by Horace Gibbs ([id number]) on 06/27/2023 1:51:07 PM Referred By: REFERRED SELF Confirmed By:Horace Gibbs
[2023-06-27] MEDS: PSYLLIUM or GUAR GUM FIBER POWDER PACKET PO SCH (14:14)
--- NOTE | 2023-06-27 15:25 | Hospitalist Progress Note ---
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 At presentation in the ED, most of her symptoms were reported to be improving, particularly after she received a dose of lorazepam. 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 She was recently placed on a course of doxycycline for chronic LE lymphedema/wound. Her family notes multiple life stressors within the last two weeks, which they are concerned may be contributing to her symptoms. She is being managed for the following: Nausea, vomiting and diarrhea: Norovirus related gastroenteritis Patient reports improving nausea and vomiting and would like to advance diet. Can advance diet as tolerated. Initial cultures revealed norovirus positive. Patient with multiple liquidy stool, add psyllium fiber 06/26. Patient still feels weak. PT/OT Symptomatic management. Monitor labs and replete electrolytes as appropriate. Concern of chest symptoms: At presentation. Troponin trends negative. EKG without acute ST or T changes. Echo with EF of 60 to 65%, no regional wall motion abnormality. Continue telemetry monitoring. Patient with no chest pain. Side effect of medication: Suspected doxycycline contributing to pt's GI distress - held at admission and changed to Rocephin. Now that it is evident h er GI symptoms are viral gastroenteritis related, can resume doxycycline upon discharge. Patient has been explained to continue to take doxycycline with ample water and stay upright for half hour after taking the medication. Anxiety: Suspect component of anxiety related to multiple life stressors is contributing to her symptoms, especially since she has had significant relief with anxiolytic in the ED. Can use prn vistaril or low dose buspar on dc if anxiety persists. Other chronic medical conditions: Continue with/resume home meds as and when able. Cirrhosis: Secondary to NAFLD. Does not recall history of ascites or hepatic encephalopathy. Last ECG in epic to screen for EV in 2016 and was negative. Suspect as the etiology for mildly prolonged INR, thrombocytopenia, and mild bilirubin elevation. Cellulitis of leg, right: Was being treated for doxycycline prior to arrival, can continue the course upon discharge, currently on Rocephin while in the hospital. Diastolic dysfunction: Echo in 2020 with mildly abnormal LV diastolic f unction. Patient appears euvolemic now. Monitor for volume overload. T2DM: A1c of 6 on 06/20/2023. Hold home metformin. Sliding scale insulin while in hospital HTN: Chronic, stable. Morbid obesity: Lifestyle modification encouraged. Thrombocytopenia: Chronic, likely due to underlying cirrhosis DVT prophylaxis: SCDs patient with thrombocytopenia related to cirrhosis. CODE STATUS: Full code Dispo: PT/OT, CM to assist with DC planning. Admission and Anticipated Discharge Date Admission Date: June 25, 2023 Subjective Patient was seen and examined at bedside. Patient was lying in bed, on room air, NAD. Patient reports having multiple liquid bowel movements, reports feeling weak, denies chest pain. Denies febrile illness. Reports chronic cough. Patient denies any febrile illness or pain or burning with passing urine. Patient reports tolerating advancement of diet, denies further nausea and vomiting. Will add psyllium fiber to help form stool. Physical Exam Physical Exam: GENERAL: Alert and oriented x3. NAD, on RA. HEENT: No pallor, no icterus. Pupils equal, round and reactive to light. Oral mucosa moist. NECK: No JVD, no neck masses. HEART: S1 and S2 heard. Regular rate and rhythm. + murmur, no gallop. RESPIRATORY SYSTEM: Normal AP diameter. No accessory muscle use. No wheezing, no crackles. ABDOMEN: Soft, bowel sounds present, nontender but minimal discomfort on exam, no distention. CENTRAL NERVOUS SYSTEM: No facial droop. Speech is clear. Obeys simple commands. Moves extremities. EXTREMITIES: ble lymphedema, no erythema seen. Results & Data Results & Data Vital Signs (Past 12 Hours) Vital Signs Temp Pulse Pulse Resp BP Pulse Ox O2 Del Method 06/27/23 15:05 36.5 C 75 20 130/72 97 Room Air 06/27/23 11:34 36.9 C 73 18 129/73 96 Room Air 06/27/23 10:28 Room Air 06/27/23 07:59 36.6 C 74 18 135/77 98 Room Air 06/27/23 07:39 72 06/27/23 04:19 75 20 120/69 95 Room Air 06/27/23 03:37 36.7 C 74 16 97/53 L 96 Room Air
[2023-06-28 06:28] LABS: BUN Creatinine Ratio 23.3 (10-20); Calcium 7.8 mg/dl (8.6-10.3); Creatinine Clr Calc Pharmacy 87.8 ml/min; Est GFR (African American) 78.3 ml/min; Est GFR (Non-African American) 67.6 ml/min; Magnesium 1.9 mg/dl (1.7-2.4); Phosphorus 4.1 mg/dl (2.5-4.9); Potassium 3.9 mmol/L (3.5-5.1)
[2023-06-28] MEDS: ADVANCED PROBIOTIC 625 MG CAPSULE PO SCH (09:29)
--- NOTE | 2023-06-28 15:48 | Hospitalist Progress Note ---
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 At presentation in the ED, most of her symptoms were reported to be improving, particularly after she received a dose of lorazepam. 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 She was recently placed on a course of doxycycline for chronic LE lymphedema/wound. Her family notes multiple life stressors within the last two weeks, which they are concerned may be contributing to her symptoms. She is being managed for the following: Nausea, vomiting and diarrhea: Norovirus related gastroenteritis Patient reports improving nausea and vomiting and would like to advance diet. Can advance diet as tolerated. Initial cultures revealed norovirus positive. Psyllium added 06/26, stool forming up, continue to monitor. Patient reports feeling tired and wiped out today. Continue PT/OT as able. Symptomatic management. Monitor labs and replete electrolytes as appropriate. Concern of chest symptoms: At presentation. Troponin trends negative. EKG without acute ST or T changes. Echo with EF of 60 to 65%, no regional wall motion abnormality. Continue telemetry monitoring. Patient with no chest pain. Side effect of medication: Suspected doxycycline contributing to pt's GI distress - held at admission and changed to Rocephin. Now that it is evident her GI symptoms are viral gastroenteritis related, can resume doxycycline upon discharge. Patient has been explained to continue to take doxycycline with ample water and stay upright for half hour after taking the medication. Anxiety: Suspect component of anxiety related to multiple life stressors is contributing to her symptoms, especially since she has had significant relief with anxiolytic in the ED. Patient states that anxiety ongoing, is agreeable to BuSpar after discussion of risks and benefit. Started buspar 06/27. Continue. Other chronic medical conditions: Continue with/resume home meds as and when able. Cirrhosis: Secondary to NAFLD. Does not recall history of ascites or hepatic encephalopathy. Last ECG in epic to screen for EV in 2017 and was negative. Suspect as the etiology for mildly prolonged INR, thrombocytopenia, and mild bilirubin elevation. Cellulitis of leg, right: Was being treated for doxycycline prior to arrival, can continue the course upon discharge, currently on Rocephin while in the hospital. Diastolic dysfunction: Echo in 2020 with mildly abnormal LV diastolic function. Patient appears euvolemic now. Monitor for volume overload. T2DM: A1c of 6 on 06/20/2023. Hold home metformin. Sliding scale insulin while in hospital HTN: Chronic, stable. Morbid obesity: Lifestyle modification encouraged. Thrombocytopenia: Chronic, likely due to underlying cirrhosis DVT prophylaxis: SCDs patient with thrombocytopenia related to cirrhosis. CODE STATUS: Full code Dispo: PT/OT, CM to assist with DC planning. Admission and Anticipated Discharge Date Admission Date: June 27, 2023 Subjective Patient was seen and examined at bedside. Patient was lying in bed, on room air, NAD. Patient reports having multiple semisolid to liquid bowel movements, reports feeling weak, denies chest pain. Denies febrile illness. Reports chronic cough. Patient denies any febrile illness or pain or burning with passing urine. Patient reports tolerating advancement of diet, denies further nausea and vomiting. Patient reports stool somewhat forming up and abdominal discomfort improving. Patient reports feeling tired and wiped out and would like to go home tomorrow. Physical Exam Physical Exam: GENERAL: Alert and oriented x3. NAD, on RA. HEENT: No pallor, no icterus. Pupils equal, round and reactive to light. Oral mucosa moist. NECK: No JVD, no neck masses. HEART: S1 and S2 heard. Regular rate and rhythm. + murmur, no gallop. RESPIRATORY SYSTEM: Normal AP diameter. No accessory muscle use. No wheezing, no crackles. ABDOMEN: Soft, bowel sounds present, nontender, no distention. CENTRAL NERVOUS SYSTEM: No facial droop. Speech is clear. Obeys simple commands. Moves extremities. EXTREMITIES: ble lymphedema, no erythema seen. Results & Data Results & Data Vital Signs (Past 12 Hours) Vital Signs Temp Pulse Pulse Resp BP Pulse Ox O2 Del Method 06/28/23 15:16 36.6 C 72 20 97/54 L 97 Room Air 06/28/23 11:10 36.5 C 73 114/65 97 Room Air 06/28/23 10:08 Room Air 06/28/23 07:44 36.4 C L 70 123/73 96 Room Air 06/28/23 07:00 72
[2023-06-28] MEDS: busPIRone 7.5 MG TAB PO SCH (21:08)
[2023-06-29 07:04] LABS: BUN Creatinine Ratio 21.8 (10-20); Calcium 8.3 mg/dl (8.6-10.3); Creatinine Clr Calc Pharmacy 90.8 ml/min; Est GFR (African American) 81.6 ml/min; Est GFR (Non-African American) 70.4 ml/min; Magnesium 1.9 mg/dl (1.7-2.4); Phosphorus 3.8 mg/dl (2.5-4.9); Potassium 4.1 mmol/L (3.5-5.1)
--- NOTE | 2023-06-29 13:53 | Hospitalist Progress Note ---
Date of Service June 29, 2023 Assessment & Plan (1) Viral gastroenteritis: Plan Ms. Lewis is a 62 y/o female with insulin-requiring DM2, cirrhosis, chronic lymphedema, HTN, chronic thrombocytopenia, and other history as outlined who presented to the ED on 06/24 with multiple symptoms the night [employer] including the acute onset of N/V/D, chest pain, hyperventilation and dyspnea this morning. At presentation in the ED, most of her symptoms were reported to be improving, particularly after she received a dose of lorazepam. She had a sick contact with gastroenteritis last week [employer] PERSON. She was recently placed on a course of doxycycline for chronic LE lymphedema/wound. Her family notes multiple life stressors within the last two weeks, which they are concerned may be contributing to her symptoms. She is being managed for the following: #Nausea, vomiting and diarrhea: #Norovirus related gastroenteritis symptoms present on 06/23, diet advanced since admission, currently HH/DMTII Initial cultures revealed norovirus positive. Psyllium added 06/26, stool forming up, continue to monitor. Patient reports feeling tired and wiped out today. PT/OT signed off on 06/26 Symptomatic management. Monitor labs and replete electrolytes as appropriate. #Noncardiac chest pain: Troponin trends negative. EKG without acute ST or T changes. Echo with EF of 60 to 65%, no regional wall motion abnormality. Continue telemetry monitoring. Patient with no chest pain. #Side effect of medication: Suspected doxycycline contributing to pt's GI distress - held at admission and changed to Rocephin. Now that it is evident her GI symptoms are viral gastroenteritis related, can resume doxycycline upon discharge. Patient has been explained to continue to take doxycycline with ample water and stay upright for half hour after taking the medication. #Anxiety: Suspect component of anxiety related to multiple life stressors is contributing to her symptoms, especially since she has had significant relief with anxiolytic in the ED. Patient states that anxiety ongoing, is agreeable to BuSpar after discussion of risks and benefit. Started buspar 06/27. Continue. Other chronic medical conditions: Continue with/resume home meds as and when able. Cirrhosis: Secondary to NAFLD. Does not recall history of ascites or hepatic encephalopathy. Last ECG in epic to screen for EV in 2017 and was negative. Suspect as the etiology for mildly prolonged INR, thrombocytopenia, and mild bilirubin elevation. Cellulitis of leg, right: Was being treated for doxycycline prior to arrival, can continue the course upon discharge, currently on Rocephin while in the hospital. Diastolic dysfunction: Echo in 2020 with mildly abnormal LV diastolic function. Patient appears euvolemic now. Monitor for volume overload. T2DM: A1c of 6 on 06/20/2023. Hold home metformin. Sliding scale insulin while in hospital HTN: Chronic, stable. Morbid obesity: Lifestyle modification encouraged. Thrombocytopenia: Chronic, likely due to underlying cirrhosis DVT prophylaxis: SCDs patient with thrombocytopenia related to cirrhosis. CODE STATUS: Full code Dispo: Dispo home Admission and Anticipated Discharge Date Admission Date: June 27, 2023 Subjective NAEO Intermittent hypotension with accompanied dizziness, still with intermittent diarrhea Denies fevers, chills chest pain Not ready for dispo at this time 2/2 above Physical Exam Constitutional: WD/WN, vitals as above Respiratory: normal respiratory effort, lungs clear to auscultation Cardiovascular: RRR, no murmur, no edema Ortho stats negative Skin: R > L nonpitting edema, lymphedematous skin changes Results & Data Results & Data Vital Signs (Past 12 Hours) Vital Signs Temp Pulse Pulse Resp BP Pulse Ox O2 Del Method 06/29/23 11:42 36.5 C 88 16 140/82 97 Room Air 06/29/23 09:04 70 135/73 06/29/23 09:00 Room Air 06/29/23 08:11 36.5 C 70 15 130/78 97 Room Air 06/29/23 07:00 65 06/29/23 02:59 36.5 C 93 H 17 97/59 L 93 Room Air Laboratory Results [facility] 06/29/23 06:03 Sodium 134 L Potassium 4.1 Chloride 104 Carbon Dioxide 24 BUN 19 Creatinine 0.87 Glucose 127 H Calcium 8.3 L Medications Administered Home Medications Medication Instructions Recorded Confirmed Last Taken pravastatin 40 mg tablet 40 mg PO HS 05/26/18 06/25/23 06/23/23 ramipril 5 mg capsule 5 mg PO QAM 04/20/20 06/25/23 06/24/23 insulin glargine 100 unit/mL (3 40 unit (0.4 mL) subcut BID #15 mL 04/25/20 06/25/23 06/24/23 mL) subcutaneous pen (Basaglar KwikPen U-100 Insulin) triamcinolone acetonide 0.1 % 1 applic topical DAILY PRN Rash 05/01/22 06/25/23 06/24/23 topical cream metformin 500 mg tablet,extended 1,000 mg PO DAILY 05/14/22 06/25/23 06/24/23 release 24 hr clobetasol 0.05 % topical ointment 1 applic topical BID PRN Rash 06/25/23 06/25/23 Unknown doxycycline hyclate 100 mg capsule 0 mg PO BID Wound Care 06/25/23 06/25/23 06/24/23 doxycycline hyclate 50 mg capsule 0 mg PO BID Rosacea 06/25/23 06/25/23 06/24/23 tacrolimus 0.1 % topical ointment 1 applic topical BID 06/25/23 06/25/23 Unknown Active Medications Generic Name Dose Route Start Last Admin Trade Name Freq PRN Reason Stop Dose Admin Buspirone HCl 7.5 mg 06/28/23 21:00 06/29/23 08:15 Buspirone 7.5 Mg Tab PO 07/28/23 20:59 7.5 mg BID RODRIGO Administration Enalapril Maleate 20 mg 06/26/23 09:00 06/29/23 08:16 Enalapril Maleate 10 Mg Tab PO 07/26/23 08:59 20 mg QAM RODRIGO Administration Protocol Ceftriaxone Sodium 2,000 mg/ 50 mls @ 100 mls/hr 06/25/23 16:00 06/28/23 16:55 Dextrose IV 07/02/23 15:59 Infused Q24H [facility] Infusion Protocol Insulin Aspart 0 units 06/25/23 16:30 06/29/23 12:55 Insulin Aspart Per Unit Charge SC 07/25/23 16:29 9 units ACHS RODRIGO Administration Insulin Glargine 20 units 06/25/23 21:00 06/29/23 08:49 Lantus Per Unit Charge SQ 07/25/23 20:59 20 units BID RODRIGO Administration Lactobacillus Acidophilus 1,250 mg 06/28/23 09:00 06/29/23 08:16 Advanced Probiotic 625 Mg Capsule PO 07/28/23 08:59 1,250 mg DAILY RODRIGO Administration Pravastatin Sodium 40 mg 06/26/23 09:00 06/29/23 08:17 Pravastatin Sod 40 Mg Tab PO 07/26/23 08:59 40 mg QAM RODRIGO Administration Psyllium Hydrophilic Mucilloid 1 pkt 06/27/23 11:45 06/29/23 08:16 Psyllium Or Guar Gum Fiber Powder Packet PO 07/27/23 11:44 1 pkt QAM RODRIGO Administration
[2023-06-30 06:26] LABS: Albumin Globulin Ratio 0.8 (0.9-2); Albumin Level 2.9 gm/dl (3.4-5.0); BUN Creatinine Ratio 22.4 (10-20); Bilirubin,Total 1.2 mg/dl (0.2-1.0); Calcium 8.4 mg/dl (8.6-10.3); Creatinine Clr Calc Pharmacy 92.5 ml/min; Est GFR (African American) 83.9 ml/min; Est GFR (Non-African American) 72.4 ml/min; Globulin 3.7 gm/dl (2.5-4.0); Magnesium 1.8 mg/dl (1.7-2.4); Phosphorus 3.8 mg/dl (2.5-4.9); Total Protein 6.6 gm/dl (6.0-8.3)
[2023-06-30 06:30] LABS: Hematocrit (blood only) 32.2 % (37.0-47.0); Hemoglobin 11.1 g/dl (12.0-16.0); Mean Corpuscular Hemoglobin 32.4 pg (25.0-34.0); Mean Corpuscular Hgb Conc 34.5 g/dL (32.0-36.0); Mean Corpuscular Volume 93.9 fL (80.0-100.0); Mean Platelet Volume 9.6 fL (9.4-12.4); Platelet Count 84 K/uL (130-400); RDW Coefficient of Variation 14.8 % (11.5-14.5); RDW Standard Deviation 50.6 fL (36.4-46.3); Red Blood Count 3.43 M/uL (4.20-5.40); White Blood Count 7.03 K/ul (4.8-10.8)
--- NOTE | 2023-06-30 10:52 | Discharge Summary ---
Discharge Summary Date of Service June 30, 2023 Notes For Next Care Provider Medication Changes From Visit Buspar 7.5mg BID for anxiety Admission HPI Per Admitting Provider 62 yo obese well controlled diabetic female presents to the ER for a cardiac assessment. Yesterday evening, she was coming home from [place] and developed acute nausea and vomiting, requiring her to stop at least three times on the ride home. By the time she got home, she was feeling better, tolerated a small amount of water, and went to bed feeling okay. Then around 0100, she woke up with intermittent sharp abdominal pains followed by profuse diarrhea with urgency and incontinence as well as additional episodes of emesis. She reports that the diarrhea but black in color but denies hematochezia. Denies recent pepto or iron supplements. She then became short of breath and was feeling lightheaded so decided to come to the ED for evaluation. On the way here, she developed chest pain, neck tight, reported to ER provider that she was going to pass out. Her last episode of emesis was around 7:30 am, last episode of diarrhea was 9 am. She has been on doxycycline for possible cellulitis of chronic right leg wound due to lymphedema since 06/19. She has a history of lymphedema and lower extremity wounds in the past with morbid obesity. She was around her grandson last week who had a 24 hour GI bug. She notes a loss of appetite for the last three months with intermittent nausea, but no significant vomiting until the last 24 hours. Denies significant weight loss despite limited oral intake. Her family notes she has been under significant stress over the last two weeks including an unexpected family , a separation in the family, and her recent visit with a rehabilitation aide, Dr. Ibrahim, for cirrhosis. Per pt and her family, she was was told that she was going to within the next 3- 6 months and was not a candidate for transplant due to her diabetes and splenomegaly. She is scheduled for a second opinion from hepatology in July. Notably, her symptoms seem to be improving with the Ativan given in the ED. She denies chest pain at present. Her family is very concerned that she may be dehydrated as she has been consuming very limited fluids at home. She has not checked her sugars at home recently but her last A1c was 6.0 on 06/20/23. Admission Exam Per Admitting Provider : General: awake, alert, NAD HEENT: no scleral icterus, moist oral mucosa Neck: trachea midline Heart: regular, +murmur Lungs: CTA bilaterally, no W/R/R Abdomen: soft, obese, +BS Extremities: bilateral LE lymphedema, right LE with dressing Neurologic: oriented x 3, no asterixis, UE strength equal bilaterally, able to spell WORLD forward and backward without difficulty Principal Dx & Hospital Course #1 = Principal Diagnosis (1) Viral gastroenteritis: Plan Ms. Lewis is a 62 y/o female with insulin-requiring DM2, cirrhosis, chronic lymphedema, HTN, chronic thrombocytopenia, and other history as outlined who presented to the ED on 06/24 with multiple symptoms the night [employer] including the acute onset of N/V/D, chest pain, hyperventilation and dyspnea this morning. At presentation in the ED, most of her symptoms were reported to be improving, particularly after she received a dose of lorazepam. She had a sick contact with gastroenteritis last week [employer]. She was recently placed on a course of doxycycline for chronic LE lymphedema/wound. Her family notes multiple life stressors within the last two weeks, which they are concerned may be contributing to her symptoms. She is being managed for the following: #Nausea, vomiting and diarrhea: *resolved #Norovirus related gastroenteritis symptoms present on 06/23, diet advanced since admission, currently HH/DMTII Initial cultures revealed norovirus positive. PT/OT signed off on 06/26 Symptomatic management. Patient ready for discharge, no further episodes of diarrhea #Noncardiac chest pain: Troponin trends negative. EKG without acute ST or T changes. Echo with EF of 60 to 65%, no regional wall motion abnormality. Patient with no chest pain on discharge #Side effect of medication, r/o: Suspected doxycycline contributing to pt's GI distress - held at admission and changed to Rocephin. Completed 7 days of abx total, discontinue upon discharge #Anxiety: Suspect component of anxiety related to multiple life stressors is contributing to her symptoms, especially since she has had significant relief with anxiolytic in the ED. Patient states that anxiety ongoing, is agreeable to BuSpar after discussion of risks and benefit. Started buspar 06/27. Continue upon discahrge 7.5 mg BID Other chronic medical conditions: Continue with/resume home meds as and when able. Cirrhosis: Secondary to NAFLD. Does not recall history of ascites or hepatic encephalopathy. Last ECG in epic to screen for EV in 2016 and was negative. Suspect as the etiology for mildly prolonged INR, thrombocytopenia, and mild bilirubin elevation. Stable Cellulitis of leg, right: Was being treated for doxycycline prior to arrival, completed 7 days of IV abx total with po regimen prior to arrvial. Hold abx upon discharge Diastolic dysfunction: Echo in 2020 with mildly abnormal LV diastolic function. Patient appears euvolemic now. Monitor for volume overload. T2DM: A1c of 6 on 06/20/2023. Hold home metformin. Sliding scale insulin while in hospital HTN: Chronic, stable. Morbid obesity: Lifestyle modification encouraged. Thrombocytopenia: Chronic, likely due to underlying cirrhosis On day of discharge, patient states she is doing well and would like to continue Buspar. She feels much improved and denies any new concerns this morning. Discharge Exam Constitutional WD/WN, vitals as above Respiratory normal respiratory effort, lungs clear to auscultation Cardiovascular RRR, PARTHA Skin chronic RLE > LLE, skin changes consistent with lymphaedemtaous changes, no signs of superimposed infection Updated Medication List Medication Instructions Recorded Confirmed Type pravastatin 40 mg tablet 40 mg PO HS 05/26/18 06/25/23 History ramipril 5 mg capsule 5 mg PO QAM 04/20/20 06/25/23 History insulin glargine 100 unit/mL (3 40 unit (0.4 mL) subcut BID #15 mL 04/25/20 06/25/23 Rx mL) subcutaneous pen (Basaglar KwikPen U-100 Insulin) triamcinolone acetonide 0.1 % 1 applic topical DAILY PRN Rash 05/01/22 06/25/23 History topical cream metformin 500 mg tablet,extended 1,000 mg PO DAILY 05/14/22 06/25/23 History release 24 hr clobetasol 0.05 % topical ointment 1 applic topical BID PRN Rash 06/25/23 06/25/23 History doxycycline hyclate 50 mg capsule 0 mg PO BID Rosacea 06/25/23 06/25/23 History tacrolimus 0.1 % topical ointment 1 applic topical BID 06/25/23 06/25/23 History buspirone 7.5 mg tablet 7.5 mg PO BID #60 tabs 06/30/23 Rx Hospital Stay Data Consultations 06/25/23 13:11 ED Decision to Admit Stat Diagnostic Imagining Performed 06/25/23 16:27 CT abd pelvis IV con only Urgent Pending Results Patient Have Any Pending Studies at Discharge: No Discharge Instructions Given to Patient (Per Discharging Provider) You were admitted for diarrhea and found to have gastroenteritis related to Norovirus infection. You symptoms have resolved. It is recommended you continue fiber supplement as well as probiotic/yogurt to help your gut health. You were noted to be anxious as well and a new medication started during your admission will aid with this: Buspar 7.5 mg two times a day Your antibiotic was completed while admitted for the lower extremity infection concern. Please follow up with your rehabilitation aide (stomach/liver doctor) and your PCP. Total Time Total Time Spent Total Time Spent (In Minutes): 35
== END 2023-06-30 14:49 | disposition home or self-care (01) | DRG 392 ==
LOC: 2N 11:11 → ED 11:11 → SUATTDRO 13:34 → 2N 15:48 → SUATTDRO 06-27 15:22
DX: D69.6 Thrombocytopenia, unspecified; R07.89 Other chest pain; E66.01 Morbid (severe) obesity due to excess calories; L03.115 Cellulitis of right lower limb; F41.9 Anxiety disorder, unspecified; Z79.84 Long term (current) use of oral hypoglycemic drugs; Z68.42 Body mass index [BMI] 45.0-49.9, adult; Z79.4 Long term (current) use of insulin; Y92.239 Unspecified place in hospital as the place of occurrence of the external cause; K76.0 Fatty (change of) liver, not elsewhere classified; T36.4X5A Adverse effect of tetracyclines, initial encounter; I12.9 Hypertensive chronic kidney disease with stage 1 through stage 4 chronic kidney disease, or unspecified chronic kidney disease; E11.22 Type 2 diabetes mellitus with diabetic chronic kidney disease; K74.60 Unspecified cirrhosis of liver; Z88.2 Allergy status to sulfonamides; A08.11 Acute gastroenteropathy due to Norwalk agent; N18.2 Chronic kidney disease, stage 2 (mild)

== ENCOUNTER 2023-07-08 22:21 | Inpatient (IN) ==
[2023-07-08 23:18] LABS: Hematocrit (blood only) 34.2 % (37.0-47.0); Hemoglobin 11.6 g/dl (12.0-16.0); Mean Corpuscular Hemoglobin 32.8 pg (25.0-34.0); Mean Corpuscular Hgb Conc 33.9 g/dL (32.0-36.0); Mean Corpuscular Volume 96.6 fL (80.0-100.0); Mean Platelet Volume 9.9 fL (9.4-12.4); Platelet Count 50 K/uL (130-400); RDW Coefficient of Variation 14.9 % (11.5-14.5); RDW Standard Deviation 52.8 fL (36.4-46.3); Red Blood Count 3.54 M/uL (4.20-5.40); White Blood Count 12.03 K/ul (4.8-10.8)
[2023-07-08 23:34] LABS: BUN Creatinine Ratio 13.9 (10-20); Bilirubin Direct 0.6 mg/dl (0-0.2); Bilirubin,Total 3.1 mg/dl (0.2-1.0); Calcium 8.6 mg/dl (8.6-10.3); Est GFR (African American) 58.2 ml/min; Est GFR (Non-African American) 50.2 ml/min; Magnesium 1.2 mg/dl (1.7-2.4); Potassium 4.2 mmol/L (3.5-5.1); Total Protein 6.8 gm/dl (6.0-8.3)
[2023-07-08 23:40] LABS: Troponin I High Sensitivity 13.1 pg/ml (0-14)
[2023-07-08 23:44] LABS: Basophils # (auto) 0.03 K/uL (0.00-0.20); Basophils % (auto) 0.2 %; Echinocytes 1+; Eosinophils # (auto) 0.01 K/uL (0.00-0.50); Eosinophils % (auto) 0.1 %; Immature Granulocytes # (auto) 0.09 K/uL (0.01-0.20); Immature Granulocytes % (auto) 0.7 %; Lymphocytes # (auto) 0.28 K/uL (1.20-3.40); Lymphocytes % (auto) 2.3 %; Monocytes # (auto) 0.49 K/uL (0.11-0.59); Monocytes % (auto) 4.1 %; Neutrophils # (auto) 11.13 K/uL (1.40-6.50); Neutrophils % (auto) 92.6 %; Ovalocytes 1+
[2023-07-08] MEDS: CEFEPIME 2,000 MG/20 ML VIAL IV STA (23:59)
[2023-07-08] MEDS: ACETAMINOPHEN 500 MG TAB PO STA (23:59)
[2023-07-08] MEDS: SODIUM CHLORIDE 0.9% 1,000 ML IV ONE (23:59)
[2023-07-09] MEDS: MAGNESIUM SULFATE / D5W 1 GM/100 ML BAG IV STA (00:38)
[2023-07-09] MEDS: ONDANSETRON INJ 2 MG/ML 2 ML VIAL IV STA (01:12)
[2023-07-09] MEDS: SODIUM CHLORIDE 0.9% 1,000 ML IV ONE (01:13)
[2023-07-09 01:23] LABS: Adenovirus PCR Not Detected (NotDetected); Bordetella parapertussis PCR Not Detected (NotDetected); Bordetella pertussis PCR Not Detected (NotDetected); Chlamydia pneumoniae PCR Not Detected (NotDetected); Coronavirus 229E PCR Not Detected (NotDetected); Coronavirus CoV-2 (COVID19)PCR Not Detected (NotDetected); Coronavirus HKU1 PCR Not Detected (NotDetected); Coronavirus NL63 PCR Not Detected (NotDetected); Coronavirus OC43PCR Not Detected (NotDetected); Human Metapneumovirus PCR Not Detected (NotDetected); Influenza A PCR Not Detected (NotDetected); Influenza B PCR Not Detected (NotDetected); Mycoplasma pneumoniae PCR Not Detected (NotDetected); Parainfluenza Virus 1 PCR Not Detected (NotDetected); Parainfluenza Virus 2 PCR Not Detected (NotDetected); Parainfluenza Virus 3 PCR Not Detected (NotDetected); Parainfluenza Virus 4 PCR Not Detected (NotDetected); Respiratory Syncytial VirusPCR Not Detected (NotDetected); Rhinovirus/Enterovirus PCR Not Detected (NotDetected)
[2023-07-09] MEDS: MAGNESIUM SULFATE / D5W 1 GM/100 ML BAG IV SCH (02:23)
[2023-07-09] MEDS: LACTATED RINGER'S 1,000 ML IV STA (02:23)
[2023-07-09] MEDS: DOXYCYCLINE HYCLATE 100 MG in DEXTROSE 5% MINI-B 100 ML IV STA (02:26)
[2023-07-09] MEDS: metroNIDAZOLE 500 MG/100 ML BAG IV STA (02:27)
--- NOTE | 2023-07-09 02:53 | History & Physical Report ---
Date of Service July 09, 2023 Assessment & Plan (1) Severe sepsis: Plan: SIRS plus lactic acidosis Possible sources Complicated UTI Recurrent RLE cellulitis rule out abscess/osteomyelitis, history chronic lymphedema rule out DVT Diarrhea rule out C. difficile hypertension, BP on the lower side Syncope possibly from orthostasis given borderline BP hyperlipidemia, on statin Rx DM 2 insulin requiring, well-controlled as of recent hemoglobin A1c of 6 last month hx NAFLD cirrhosis no overt decompensation chronic anemia, hemoglobin at baseline chronic thrombocytopenia secondary to liver disease Possible deconditioning given recurrent admissions Medical telemetry CS, Daptomycin and cefepime Stool C. difficile IV Flagyl for now for presumptive C. difficile given sepsis criteria, oral vancomycin if C. difficile positive Follow lactic acid response to IVF (Guideline recommended 30 cc/kg IBW fluid bolus administration over 3 hours precluded by patient's history of cirrhosis/portal hypertension.) Hold home BP meds for now given borderline BP. Check orthostatic vitals CT abdomen pelvis Re: Abdominal pain CT right leg Re: Recurrent cellulitis, may need MRI to definitively rule out osteomyelitis if CT imaging negative LE venous Dopplers rule out DVT Basal bolus insulin adjusted for n.p.o. status for now until CT results known, ISS BG goal 1 10-1 40, carb count coverage, PT OT eval once medically stable DVT prophylaxis with SCDs given thrombocytopenia if no LE DVT on venous ultrasound Full code Patient's sons requesting updates providers. Mr. Esvin Lewis, contact #[phone]. Mr. Sin Joshua, contact #[phone]. Text document was generated using [email or web address] voice recognition software. It may contain grammatical or spelling errors. Kindly contact undersigned for clarification of any documentation item in question. History of Present Illness Chief Complaint: Abdominal pain, vomiting, diarrhea Primary Care Provider: Serene Lopez PA-C History obtained from patient, family, and records. Medical history significant for hypertension, hyperlipidemia, chronic lymphedema, JUAN, DM 2 insulin requiring, NAFLD cirrhosis, chronic anemia (baseline hemoglobin 10-11), chronic thrombocytopenia, rosacea on doxycycline Monthly confinements since May 2023. Last confinement June 26 to 2023 for norovirus gastroenteritis. Patient seen at new PCPs office 3 weeks ago for recurrent right leg cellulitis with foul drainage. No improvement despite doxycycline course and outpatient podiatry eval. Patient woke up not feeling well yesterday morning. Achy abdominal pain with nausea, vomiting, watery diarrhea. No chest pain, no SOB. No cough symptoms. Achy headache symptoms. Patient thinks she was passing out from lightheadedness. No witnessed seizures. Foul-smelling urine noted by EMS upon arrival at patient's home. IV cefepime administered at the ER. MEDICAL HISTORY: As above. SURGERIES: She has had gynecologic procedures, cholecystectomy, cataract surgeries FAMILY HISTORY: Hypertension, cirrhosis secondary to fatty liver disease, throat cancer, Parkinson's disease PERSONAL SOCIAL HISTORY: Nonsmoker, no chronic intake of alcoholic beverages, disabled. Allergies Allergy/AdvReac Type Severity Reaction Status Date / Time Sulfa (Sulfonamide Allergy Intermediate SWELLING, Verified 06/25/23 13:16 Antibiotics) HIVES empagliflozin AdvReac Severe Vaginal Verified 06/25/23 13:16 [From Jardiance] irritation Home Medications Medication Instructions Recorded Confirmed Type pravastatin 40 mg tablet 40 mg PO HS 05/26/18 07/09/23 History ramipril 5 mg capsule 5 mg PO QAM 04/20/20 07/09/23 History insulin glargine 100 unit/mL (3 40 unit (0.4 mL) subcut BID #15 mL 04/25/20 07/09/23 Rx mL) subcutaneous pen (Basaglar KwikPen U-100 Insulin) triamcinolone acetonide 0.1 % 1 applic topical DAILY PRN Rash 05/01/22 07/09/23 History topical cream metformin 500 mg tablet,extended 1,000 mg PO DAILY 05/14/22 07/09/23 History release 24 hr clobetasol 0.05 % topical ointment 1 applic topical BID PRN Rash 06/25/23 07/09/23 History doxycycline hyclate 50 mg capsule 0 mg PO BID Rosacea 06/25/23 07/09/23 History tacrolimus 0.1 % topical ointment 1 applic topical BID 06/25/23 07/09/23 History buspirone 7.5 mg tablet 7.5 mg PO BID #60 tabs 06/30/23 07/09/23 Rx Past Med/Surg History Medical History Hyperlipidemia Lymphedema Sleep apnea Rosacea Morbid obesity Cirrhosis Peripheral neuropathy Spleen enlargement Chronic kidney disease STAGE 2 History of asthma Thrombocytopenia HTN (hypertension) DM type 2 (diabetes mellitus, type 2) Surgical History History of tooth extraction History of cataract surgery RT/LEFT H/O dilation and curettage History of hysteroscopy S/P cholecystectomy Family History (Updated 06/25/23 @ 14:11 by Alexia Chambers PA-C) Sister Cervical cancer Mother Liver disease Other No family history of adverse response to anesthesia Social History Smoking Status: Never smoker Second Hand Exposure: No; Hx Alcohol Use: No Hx Substance Use: No Preferred Language: Turkmen Communication Ability: Effective Visual Impairment: No Limitations Hearing Ability: Normal 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 Beliefs That Will Affect Care: None Current Living Situation: Alone Feels Safe at Home: Yes Assistive Devices: Cane and Walker Review of Systems Review of Systems: As per HPI, all other systems reviewed and negative Physical Exam Physical Exam: GENERAL: Slightly uncomfortable, morbidly obese, ill-appearing, no respiratory distress SKIN: Normal color, warm HEENT: [place] palpebral conjunctivae, no ptosis, dry buccal mucosa NECK : Supple, short neck, no tenderness CHEST : Decreased breath sounds, no tenderness HEART : Tachycardic, no obvious murmurs ABDOMEN: distention, nontender EXTREMITIES : Bilateral LE swelling, RLE induration with minimal tenderness, no other conspicuous deformities noted NEUROLOGIC : Coherent, no facial asymmetry, gait and stance not assessed Results & Data Results & Data Vital Signs (Past 12 Hours) Vital Signs Temp Pulse Pulse Resp BP BP Pulse Ox 07/09/23 01:15 37.9 C H 104 H 26 H 134/82 93 07/09/23 00:28 115 H 28 H 125/58 L 97 07/09/23 00:28 97 07/08/23 22:51 39.4 C H 109 H 28 H 124/49 L 97 07/08/23 22:50 105 H 21 124/49 L 97 O2 Del Method O2 Flow Rate 07/09/23 01:15 Room Air 07/09/23 00:28 Nasal Cannula 2 07/09/23 00:28 Nasal Cannula 2 07/08/23 22:51 Room Air 07/08/23 22:50 Room Air Laboratory Results Laboratory Results WBC 12.03 K/ul (4.8-10.8) H 07/08/23 22:53 RBC 3.54 M/uL (4.20-5.40) L 07/08/23 22:53 Hgb 11.6 g/dl (12.0-16.0) L 07/08/23 22:53 Hct 34.2 % (37.0-47.0) L 07/08/23 22:53 MCV 96.6 fL (80.0-100.0) 07/08/23 22:53 MCH 32.8 pg (25.0-34.0) 07/08/23 22:53 MCHC 33.9 g/dL (32.0-36.0) 07/08/23 22:53 RDW Std Deviation 52.8 fL (36.4-46.3) H 07/08/23 22:53 RDW Coeff of Melsisa 14.9 % (11.5-14.5) H 07/08/23 22:53 Plt Count 50 K/uL (130-400) L 07/08/23 22:53 MPV 9.9 fL (9.4-12.4) 07/08/23 22:53 Immature Gran % (Auto) 0.7 % 07/08/23 22:53 Neut % (Auto) 92.6 % 07/08/23 22:53 Lymph % (Auto) 2.3 % 07/08/23 22:53 [place] % (Auto) 4.1 % 07/08/23 22:53 Eos % (Auto) 0.1 % 07/08/23 22:53 Baso % (Auto) 0.2 % 07/08/23 22:53 Neut # (Auto) 11.13 K/uL (1.40-6.50) H 07/08/23 22:53 Lymph # (Auto) 0.28 K/uL (1.20-3.40) L 07/08/23 22:53 [place] # (Auto) 0.49 K/uL (0.11-0.59) 07/08/23 22:53 Eos # (Auto) 0.01 K/uL (0.00-0.50) 07/08/23 22:53 Baso # (Auto) 0.03 K/uL (0.00-0.20) 07/08/23 22:53 Immature Gran # (Auto) 0.09 K/uL (0.01-0.20) 07/08/23 22:53 Ovalocytes 1+ 07/08/23 22:53 Echinocytes 1+ 07/08/23 22:53 Sodium 138 mmol/L (136-145) 07/08/23 22:53 Potassium 4.2 mmol/L (3.5-5.1) 07/08/23 22:53 Chloride 105 mmol/L (98-107) 07/08/23 22:53 Carbon Dioxide 24 mmol/L (21-32) 07/08/23 22:53 Anion Gap 9 (3-11) 07/08/23 22:53 BUN 16 mg/dl (6-23) 07/08/23 22:53 Creatinine 1.15 mg/dl (0.6-1.2) 07/08/23 22:53 Est Cr Clr Drug Dosing 70.0 ml/min 07/08/23 22:53 Est GFR ( Amer) 58.2 ml/min 07/08/23 22:53 Est GFR (Non-Af Amer) 50.2 ml/min 07/08/23 22:53 BUN/Creatinine Ratio 13.9 (10-20) 07/08/23 22:53 Glucose 205 mg/dl (70-99(Fasting)) H 07/08/23 22:53 Lactate 3.6 mmol/L (0.4-2.0) H* 07/09/23 01:00 Calcium 8.6 mg/dl (8.6-10.3) 07/08/23 22:53 Magnesium 1.2 mg/dl (1.7-2.4) L 07/08/23 22:53 Total Bilirubin 3.1 mg/dl (0.2-1.0) H 07/08/23 22:53 Direct Bilirubin 0.6 mg/dl (0-0.2) H 07/08/23 22:53 AST 44 U/L (13-39) H 07/08/23 22:53 ALT 29 U/L (7-52) 07/08/23 22:53 Alkaline Phosphatase 98 U/L (34-104) 07/08/23 22:53 Troponin I High Sens 13.1 pg/ml (0-14) 07/08/23 22:53 Total Protein 6.8 gm/dl (6.0-8.3) 07/08/23 22:53 Albumin 3.0 gm/dl (3.4-5.0) L 07/08/23 22:53 Procalcitonin 13.90 ng/ml (0-0.5) H 07/08/23 22:53 Adenovirus (PCR) Not Detected (NotDetected) 07/09/23 00:03 B. pertussis DNA (PCR) Not Detected (NotDetected) 07/09/23 00:03 B.parapertussis DNA PCR Not Detected (NotDetected) 07/09/23 00:03 C. pneumoniae DNA (PCR) Not Detected (NotDetected) 07/09/23 00:03 Coronavirus OC43 (PCR) Not Detected (NotDetected) 07/09/23 00:03 Coronavirus HKU1 (PCR) Not Detected (NotDetected) 07/09/23 00:03 Coronavirus 229E (PCR) Not Detected (NotDetected) 07/09/23 00:03 SARS-CoV-2 (PCR) Not Detected (NotDetected) 07/09/23 00:03 Coronavirus NL63 (PCR) Not Detected (NotDetected) 07/09/23 00:03 Human Metapneumovir PCR Not Detected (NotDetected) 07/09/23 00:03 Influenza Type A (PCR) Not Detected (NotDetected) 07/09/23 00:03 Influenza Type B (PCR) Not Detected (NotDetected) 07/09/23 00:03 M. pneumoniae (PCR) Not Detected (NotDetected) 07/09/23 00:03 Parainfluenza 1 (PCR) Not Detected (NotDetected) 07/09/23 00:03 Parainfluenza 2 (PCR) Not Detected (NotDetected) 07/09/23 00:03 Parainfluenza 3 (PCR) Not Detected (NotDetected) 07/09/23 00:03 Parainfluenza 4 (PCR) Not Detected (NotDetected) 07/09/23 00:03 RSV (PCR) Not Detected (NotDetected) 07/09/23 00:03 Entero/Rhino (PCR) Not Detected (NotDetected) 07/09/23 00:03 Diagnostic Findings Chest x-ray as per my interpretation cardiomegaly, atelectasis EKG as per my interpretation : Rate 110, sinus tachycardia, RAD, RBBB T wave inversion inferior leads
[2023-07-09 03:00] LABS: Appearance Urine Clear (Clear); Bacteria Urine Automated Negative (Negative); Blood Urine 1+ (Negative); Color Urine Orange; Epithelial Cell Urine Auto 20-30 /lpf (0-5); Glucose Urine UA Trace (Negative); Ketones Urine Trace (Negative); Leukocyte Esterase Urine Trace (Negative); Nitrite Urine Positive (Negative); Protein Urine 1+ (Negative); RBC Urine Automated 0-4 /hpf (0-4); Specific Gravity Urine 1.016 (1.000-1.030); Urobilinogen Urine Negative (Negative)
[2023-07-09] MEDS ORDERED: traMADol HCL 50 MG TABLET PO PRN (03:01)
[2023-07-09 03:07] LABS: Bilirubin Urine 1+ (Negative)
[2023-07-09] MEDS: DAPTOmycin 350 MG in SYRINGE 0 ML IV STA (04:17)
[2023-07-09 04:26] LABS: Albumin Globulin Ratio 0.8 (0.9-2); Albumin Level 2.6 gm/dl (3.4-5.0); BUN Creatinine Ratio 15.7 (10-20); Bilirubin,Total 3.3 mg/dl (0.2-1.0); Calcium 8.1 mg/dl (8.6-10.3); Creatinine Clr Calc Pharmacy 66.6 ml/min; Est GFR (African American) 54.8 ml/min; Est GFR (Non-African American) 47.2 ml/min; Globulin 3.4 gm/dl (2.5-4.0); Hemoglobin 10.5 g/dl (12.0-16.0); Mean Corpuscular Hgb Conc 33.9 g/dL (32.0-36.0); Mean Corpuscular Volume 97.5 fL (80.0-100.0); Mean Platelet Volume 9.5 fL (9.4-12.4); Platelet Count 53 K/uL (130-400); Potassium 4.1 mmol/L (3.5-5.1); RDW Coefficient of Variation 15.2 % (11.5-14.5); Red Blood Count 3.18 M/uL (4.20-5.40); White Blood Count 16.36 K/ul (4.8-10.8)
[2023-07-09 05:07] LABS: Basophils # (auto) 0.02 K/uL (0.00-0.20); Basophils % (auto) 0.1 %; Eosinophils # (auto) 0.01 K/uL (0.00-0.50); Eosinophils % (auto) 0.1 %; Immature Granulocytes # (auto) 0.43 K/uL (0.01-0.20); Immature Granulocytes % (auto) 2.6 %; Lymphocytes # (auto) 0.42 K/uL (1.20-3.40); Lymphocytes % (auto) 2.6 %; Monocytes % (auto) 3.7 %; Neutrophils # (auto) 14.88 K/uL (1.40-6.50); Neutrophils % (auto) 90.9 %; Ovalocytes 1+; Polychromasia 1+
[2023-07-09] MEDS ORDERED: GLUCOSE 40% GEL 15 GM TUBE PO PRN (05:23)
[2023-07-09] MEDS ORDERED: GLUCAGON FOR INJ 1 MG VIAL SQ PRN (05:23)
[2023-07-09] MEDS ORDERED: GLUCOSE 10 TAB/TUBE PO PRN (05:23)
[2023-07-09] MEDS ORDERED: DEXTROSE 50% 50 ML SYRINGE IV PRN (05:23)
[2023-07-09] MEDS ORDERED: CARBOHYDRATES FOR HYPOGLYCEMIA PO PRN (05:23)
[2023-07-09] MEDS: OPTIRAY 320 125ml IV ONE (06:08)
[2023-07-09] MEDS: INSULIN ASPART PER UNIT CHARGE SC SCH (06:20)
[2023-07-09 06:48] LABS: Toxic Vacuolation 1+
[2023-07-09] MEDS: LACTATED RINGER'S 1,000 ML IV ONE (07:26)
[2023-07-09] MEDS: LANTUS PER UNIT CHARGE SQ STA (07:26)
--- NOTE | 2023-07-09 07:29 | CT Scan Report ---
CT head/brain wo con CLINICAL HISTORY: lemon, low platelets Technique: Contiguous axial CT images of the head were acquired from the base of the skull to the emilia lillian without intravenous contrast administration. Images were viewed in brain, [facility]. Automated dose lowering techniques and/or adjustment according to patient size were utilized for this exam. Comparison: Comparison is made to CT head 12/19/2016 Findings: The ventricles, basal cisterns, and cerebral sulci are normal. There is no acute intracranial hemorrh age or evidence of acute territorial infarction. Neither mass effect, shift of the midline structures , nor abnormal extra-axial fluid collections are shown. Imaged portions of the paranasal sinuses and mastoid air cells are clear. The orbits appear normal. There are no acute fractures of the calvaria or scalp swelling. Impression: No acute intracranial hemorrhage, no evidence of acute territorial infarction or other acute intracra nial disease process. ACT 112: Negative or not required by law. Electronically signed by: Esteban Tavarez M.D. 07/09/2023 7:28 AM
--- NOTE | 2023-07-09 07:32 | CT Scan Report ---
CT tib/fib RT w con CLINICAL HISTORY: recurrent swelling, sepsis TECHNIQUE: Multidetector row helical CT of the right lower leg was performed with intravenous contras t. Coronal and sagittal reformations were obtained. Automated dose lowering techniques and/or adjustm ent according to patient size were utilized for this examination. Comparison: Comparison is made to tibia and fibula radiograph 05/15/2022 FINDINGS: The osseous structures are without fracture or dislocation. The joint spaces are maintained. No joint effusion is seen. Soft tissue edema and skin thickening are seen compatible with cellulitis. No sub cutaneous emphysema is seen. There is no drainable fluid collection. IMPRESSION: Findings compatible with cellulitis without evidence of osteomyelitis or abscess. ACT 112: Negative or not required by law. Electronically signed by: Esteban Tavarez M.D. 07/09/2023 7:30 AM
--- NOTE | 2023-07-09 07:40 | Electrocardiogram Report ---
Test Reason : Blood Pressure : / mmHG Vent. Rate : 109 BPM Atrial Rate : 109 BPM P-R Int : 160 ms QRS Dur : 122 ms QT Int : 372 ms P-R-T Axes : 043 053 032 degrees QTc Int : 500 ms Sinus tachycardia Right bundle branch block Abnormal ECG When compared with ECG of 27-JUN-2023 05:40, Vent. rate has increased BY 38 BPM Confirmed by Ferny Menard ([id number]) on 07/09/2023 7:40:34 AM Referred By: REFERRED SELF Confirmed By:Ferny Menard
--- NOTE | 2023-07-09 07:50 | CT Scan Report ---
CT abd pelvis IV con only CLINICAL HISTORY: abd pain TECHNIQUE: Helical axial images of the abdomen and pelvis were obtained and displayed. Automated dose lowering techniques and/or adjustment according to patient size were utilized for this exam. This e xam was performed with intravenous contrast. CT DOSE: 2448.59 mGy.cm COMPARISON: Comparison is made to CT abdomen pelvis 06/25/2023 FINDINGS: Lower chest: Mosaic attenuation may represent air trapping. Liver: Nodular contour of the liver is seen compatible with cirrhosis. Gallbladder and biliary tree: Patient is status post cholecystectomy. No intra- or extrahepatic bilia ry ductal dilation. Pancreas: Unremarkable, no focal lesions. Spleen: Prominent splenomegaly is again seen with a craniocaudal measurement of approximately 19 cm. Adrenals: Unremarkable. Kidneys and ureters: Unremarkable. Bladder: Limited evaluation due to underdistention. Reproductive organs: Unremarkable. Bowel: A hiatal hernia is seen. Lymph nodes Retroperitoneal: Unremarkable. Pelvic: Subcentimeter lymph nodes are noted. Mesenteric: Unremarkable. Peritoneum: Normal. Vessels: Numerous venous collaterals are seen most prominently about the spleen. Abdominal wall: Unremarkable. Bones: Degenerative changes in the visualized spine. IMPRESSION: No acute abnormalities are seen. Nonspecific subcentimeter and prominently right external iliac lymph nodes are unchanged from prior exam. Redemonstration of cirrhosis with manifestations of portal hype rtension. ACT 112: Negative or not required by law. Electronically signed by: Etseban Tavarez M.D. 07/09/2023 7:48 AM
[2023-07-09] MEDS: CEFEPIME 2,000 MG in SYRINGE 0 ML IV SCH (07:52)
--- NOTE | 2023-07-09 08:23 | XRay Report ---
XR chest 1V portable CLINICAL HISTORY: Sepsis TECHNIQUE: Single frontal radiograph of the chest was obtained. Comparison: Comparison is made to chest radiograph 06/26/2023 FINDINGS: No lines and tubes are seen. Cardiomegaly is noted. The lungs are clear. No evidence of pleural effus ion or pneumothorax. IMPRESSION: No acute chest disease. Cardiomegaly is noted. ACT 112: Negative or not required by law. Electronically signed by: Esteban Tavarez M.D. 07/09/2023 8:22 AM
[2023-07-09] MEDS ORDERED: LANTUS PER UNIT CHARGE SQ SCH ×2 (09:00→21:00)
[2023-07-09] MEDS ORDERED: ENALAPRIL MALEATE 10 MG TAB PO SCH (09:00)
[2023-07-09 09:43] LABS: Adenovirus F 40/41 PCR Not Detected (NotDetected); Astrovirus PCR Not Detected (NotDetected); Campylobacter PCR Not Detected (NotDetected); Cryptosporidium PCR Not Detected (NotDetected); Cyclospora cayetanensis PCR Not Detected (NotDetected); Entamoeba histolytica PCR Not Detected (NotDetected); Enteroaggregative E.coli(EAEC) Not Detected (NotDetected); Enteropathogenic E.coli (EPEC) Not Detected (NotDetected); Enterotoxigenic E.coli (ETEC) Not Detected (NotDetected); Giardia lamblia PCR Not Detected (NotDetected); Norovirus GI/GII PCR Not Detected (NotDetected); Plesiomonas shigelloides PCR Not Detected (NotDetected); Rotavirus A PCR Not Detected (NotDetected); Salmonella PCR Not Detected (NotDetected); Sapovirus PCR Not Detected (NotDetected); Shiga-like Toxin E.coli (STEC) Not Detected (NotDetected); Shigella/Enteroinvasive E.coli Not Detected (NotDetected); Vibrio cholerae PCR Not Detected (NotDetected); Vibrio species PCR Not Detected (NotDetected); Yersinia enterocolitica PCR Not Detected (NotDetected)
[2023-07-09] MEDS: busPIRone 7.5 MG TAB PO SCH (10:00)
[2023-07-09] MEDS: DOXYCYCLINE HYCLATE 50 MG CAP PO SCH (10:00)
--- NOTE | 2023-07-09 10:07 | Ultrasound Report ---
US venous doppler LE RT CLINICAL HISTORY: swelling TECHNIQUE: Right lower extremity real-time compression venous ultrasound with Color Doppler imaging. Utilizing real-time ultrasonic imaging multiple real time high-resolution ultrasonic images with comp ression and noncompression maneuvers of the deep venous system in addition to color doppler imaging w ere performed from the common femoral vein through the proximal calf veins. COMPARISON: Comparison is made to right lower extremity Doppler ultrasound 05/15/2022 FINDINGS/IMPRESSION: Currently there is normal compressibility of the deep venous system from the common femoral vein thro ugh the proximal calf veins. Evaluation of calf veins is limited by subcutaneous edema. ACT 112: Negative or not required by law. Electronically signed by: Esteban Tavarez M.D. 07/09/2023 10:06 AM
[2023-07-09] MEDS: ACETAMINOPHEN 500 MG TAB PO PRN (10:21)
[2023-07-09] MEDS: metroNIDAZOLE 500 MG/100 ML BAG IV SCH (10:21)
--- NOTE | 2023-07-09 16:39 | Emergency Department Note ---
Impression & Plan Sepsis, Cellulitis of right lower extremity, UTI (urinary tract infection) Admit to the [facility] ED Provider Note NAME: KOSTAS CHAND AGE: 62 SEX: Female INFORMANT: Patient ED PROVIDER(S): Varsha Fritz DO CHIEF COMPLAINT: Fever; urinary incontinence and diarrhea PLAN: Disposition: Admit to the [facility] MEDICAL DECISION MAKING: This is a 62-year-old female patient who presents to the emergency department after a fairly sudden onset today of urinary and stool incontinence with some slight abdominal pain. The patient had recently been admitted to the hospital for norovirus. He was discharged home and describes doing well until earlier this afternoon. She presents dizzy, lightheaded with near syncope and stool and urine incontinence. The patient was found to be febrile and tachycardic. A complete septic workup was performed including stool cultures and upper respiratory bio fire test. Patient was felt to be septic and was treated with IV normal saline bolus according to her ideal body weight and IV cefepime. Source was thought to be her urine and possibly the right lower extremity cellulitis which according to the patient seems a bit worse but is a chronic problem. Stool testing is pending. 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 Vital Signs: reviewed and remarkable for fever and tachycardia Additional History obtained from: The patient's sons Prior/ Outside/ External records reviewed: I reviewed the most recent admission to the hospital where she was diagnosed with norovirus. Differential Diagnosis: Sepsis, UTI, right lower extremity cellulitis, dehydration, recurrent stool pathogen Diagnostics, independently interpreted by me: ECG: Sinus tachycardia at a rate of 109 with a right bundle branch block. There are no obvious signs of ischemia or significant ectopy. Cardiac Monitoring: Sinus tachycardia at a rate of 111 Imaging studies: Portable chest x-ray: No acute pulmonary infiltrates or opacities as per my independent interpretation HPI: 62 year old Female arrives for evaluation of stool and urine incontinence and near syncope. This is a 62-year-old female patient who has sudden onset earlier today of stool and urinary incontinence and then became near syncopal. Patient was recently discharged from the hospital after being admitted for an infection of norovirus. PAST MEDICAL HISTORY: See Below, PAST SURGICAL HISTORY: See Below, SOCIAL HISTORY: See Below, HOME MEDICATIONS: See list ALLERGIES: See list VITALS: See Below PHYSICAL EXAMINATION: HEENT: Head - normocephalic and atraumatic. Pupils are equal, round, and reactive to light. Extraocular eye muscles are intact, and sclera are anicteric. Nose - moist nasal mucosa without discharge. Mouth - moist buccal mucosa. Oropharynx is nonerythematous and there is no tonsillar exudate or edema noted. Neck: Supple; no JVD, nuchal rigidity, cervical lymphadenopathy, or auscultated bruits. Heart: Tachycardic rate and regular rhythm there is a normal S1 and S2 with no murmurs, clicks, or gallops appreciated. Lungs: Clear to auscultation bilaterally with no wheezes, rales, or rhonchi. Abdomen: Soft, completely nontender, nondistended, with good bowel sounds. There are no palpable pulsatile masses or hepatosplenomegaly. There is no guarding, rigidity, or rebound noted. Extremities: Right lower extremity: Significant edema with erythema and skin breakdown concerning for cellulitis. Left lower extremity has moderate edema but no erythema. Skin: Hot and dry with poor turgor and no rashes. Emergency department treatment: social work instructor, IV normal saline bolus x 2 L(per ideal body weight,) IV cefepime, IV Zofran, Tylenol Emergency department course: The patient was evaluated in room B-3-A. A complete history and physical was performed. A sepsis protocol was performed. The patient was bolused with a liter of normal saline solution and started on IV cefepime after blood cultures and urine were obtained. They did also obtain a stool specimen and an upper respiratory bio fire test. Patient was given a dose of IV Zofran for nausea as well as Tylenol for fever. Patient remained hemodynamically stable. She received a second liter of IV normal saline per protocol for sepsis I have personally spent greater than 95 minutes of critical care time in the direct management of this patient. This includes bedside care, interpretation of diagnostic studies, and testing, discussion with consultants, patient, and family members, and other required patient management activities. This 95 minutes is in excess of all separately billable procedures. Past Med/Surg History Medical History Hyperlipidemia Lymphedema Sleep apnea Rosacea Morbid obesity Cirrhosis Peripheral neuropathy Spleen enlargement Chronic kidney disease STAGE 2 History of asthma Thrombocytopenia HTN (hypertension) DM type 2 (diabetes mellitus, type 2) Surgical History History of tooth extraction History of cataract surgery RT/LEFT H/O dilation and curettage History of hysteroscopy S/P cholecystectomy Family History (Updated 06/25/23 @ 14:11 by Alexia Chambers PA-C) Sister Cervical cancer Mother Liver disease Other No family history of adverse response to anesthesia Social History Smoking Status: Never smoker Second Hand Exposure: No; Hx Alcohol Use: Yes Hx Substance Use: No Preferred Language: Romanian Communication Ability: Effective Visual Impairment: No Limitations Hearing Ability: Normal Bleach Liquor Maker Required: No Beliefs That Will Affect Care: None Current Living Situation: Alone Feels Safe at Home: Yes Safety Concerns: Feels Safe At This Time Assistive Devices: Cane and Walker Allergies Allergies Allergy/AdvReac Type Severity Reaction Status Date / Time Sulfa (Sulfonamide Allergy Intermediate SWELLING, Verified 06/25/23 13:16 Antibiotics) HIVES empagliflozin AdvReac Severe Vaginal Verified 06/25/23 13:16 [From Jardiance] irritation Home Meds Home Medications Medication Instructions Recorded Confirmed pravastatin 40 mg tablet 40 mg PO HS 05/26/18 07/09/23 ramipril 5 mg capsule 5 mg PO QAM 04/20/20 07/09/23 triamcinolone acetonide 0.1 % 1 applic topical DAILY PRN Rash 05/01/22 07/09/23 topical cream metformin 500 mg tablet,extended 1,000 mg PO DAILY 05/14/22 07/09/23 release 24 hr clobetasol 0.05 % topical ointment 1 applic topical BID PRN Rash 06/25/23 07/09/23 doxycycline hyclate 50 mg capsule 0 mg PO BID Rosacea 06/25/23 07/09/23 tacrolimus 0.1 % topical ointment 1 applic topical BID 06/25/23 07/09/23 Previous Rx's Medication Instructions Recorded insulin glargine 100 unit/mL (3 40 unit (0.4 mL) subcut BID #15 mL 04/25/20 mL) subcutaneous pen (Basaglar KwikPen U-100 Insulin) buspirone 7.5 mg tablet 7.5 mg PO BID #60 tabs 06/30/23 Results & Data (ED) Vital Signs Vital Signs - 24 hr 07/08/23 22:30 07/08/23 22:49 07/08/23 22:50 Temperature Temperature Source Pulse Rate 107 H 107 H Pulse Rate [Apical] 105 H Pulse Rate from SpO2 Sensor Respiratory Rate 23 21 Blood Pressure Blood Pressure [Left Arm] 124/49 L Blood Pressure Mean Blood Pressure Mean [Left Arm] 74 Pulse Oximetry 97 Oxygen Delivery Method Room Air Oxygen Flow Rate Sepsis Recent Fever Within 48 Hours Sepsis New/Unexplained Change in Mental Status Sepsis Action Taken by Nursing 07/08/23 22:51 07/08/23 23:00 07/08/23 23:03 Temperature 39.4 C H Temperature Source Oral Pulse Rate 109 H 112 H Pulse Rate [Apical] Pulse Rate from SpO2 Sensor Respiratory Rate 28 H 23 Blood Pressure 124/49 L 124/57 L Blood Pressure [Left Arm] Blood Pressure Mean 74 78 Blood Pressure Mean [Left Arm] Pulse Oximetry 97 Oxygen Delivery Method Room Air Oxygen Flow Rate Sepsis Recent Fever Within 48 Hours Yes Sepsis New/Unexplained Change in Mental Status No Sepsis Action Taken by Nursing Physician Notified 07/08/23 23:03 07/08/23 23:30 07/08/23 23:30 Temperature Temperature Source Pulse Rate 108 H 104 H Pulse Rate [Apical] Pulse Rate from SpO2 Sensor Respiratory Rate 20 20 Blood Pressure 103/65 Blood Pressure [Left Arm] Blood Pressure Mean 82 Blood Pressure Mean [Left Arm] Pulse Oximetry Oxygen Delivery Method Oxygen Flow Rate Sepsis Recent Fever Within 48 Hours Sepsis New/Unexplained Change in Mental Status Sepsis Action Taken by Nursing 07/09/23 00:00 07/09/23 00:00 07/09/23 00:28 Temperature Temperature Source Pulse Rate 111 H Pulse Rate [Apical] Pulse Rate from SpO2 Sensor Respiratory Rate 18 Blood Pressure 125/58 L Blood Pressure [Left Arm] Blood Pressure Mean 78 Blood Pressure Mean [Left Arm] Pulse Oximetry 97 Oxygen Delivery Method Nasal Cannula Oxygen Flow Rate 2 Sepsis Recent Fever Within 48 Hours Sepsis New/Unexplained Change in Mental Status Sepsis Action Taken by Nursing 07/09/23 00:28 07/09/23 00:30 07/09/23 00:31 Temperature Temperature Source Pulse Rate 108 H Pulse Rate [Apical] 115 H Pulse Rate from SpO2 Sensor 110 H Respiratory Rate 28 H 20 Blood Pressure Blood Pressure [Left Arm] 125/58 L Blood Pressure Mean 112 Blood Pressure Mean [Left Arm] 80 Pulse Oximetry 97 96 Oxygen Delivery Method Nasal Cannula Oxygen Flow Rate 2 Sepsis Recent Fever Within 48 Hours Sepsis New/Unexplained Change in Mental Status Sepsis Action Taken by Nursing 07/09/23 00:31 07/09/23 01:00 07/09/23 01:02 Temperature Temperature Source Pulse Rate 111 H 108 H Pulse Rate [Apical] Pulse Rate from SpO2 Sensor 111 H 107 H Respiratory Rate 22 20 Blood Pressure 134/82 Blood Pressure [Left Arm] Blood Pressure Mean 91 Blood Pressure Mean [Left Arm] Pulse Oximetry 96 96 Oxygen Delivery Method Oxygen Flow Rate Sepsis Recent Fever Within 48 Hours Sepsis New/Unexplained Change in Mental Status Sepsis Action Taken by Nursing 07/09/23 01:02 07/09/23 01:15 07/09/23 01:30 Temperature 37.9 C H Temperature Source Oral Pulse Rate 109 H 101 H Pulse Rate [Apical] 104 H Pulse Rate from SpO2 Sensor 108 H 102 H Respiratory Rate 23 26 H 24 Blood Pressure Blood Pressure [Left Arm] 134/82 Blood Pressure Mean Blood Pressure Mean [Left Arm] 99 Pulse Oximetry 96 93 94 Oxygen Delivery Method Room Air Oxygen Flow Rate Sepsis Recent Fever Within 48 Hours Sepsis New/Unexplained Change in Mental Status Sepsis Action Taken by Nursing 07/09/23 01:31 07/09/23 01:31 07/09/23 02:00 Temperature Temperature Source Pulse Rate 101 H 104 H Pulse Rate [Apical] Pulse Rate from SpO2 Sensor 101 H 105 H Respiratory Rate 23 22 Blood Pressure 92/55 L Blood Pressure [Left Arm] Blood Pressure Mean 69 Blood Pressure Mean [Left Arm] Pulse Oximetry 95 95 Oxygen Delivery Method Oxygen Flow Rate Sepsis Recent Fever Within 48 Hours Sepsis New/Unexplained Change in Mental Status Sepsis Action Taken by Nursing 07/09/23 02:01 07/09/23 02:01 07/09/23 02:30 Temperature Temperature Source Pulse Rate 103 H Pulse Rate [Apical] Pulse Rate from SpO2 Sensor 103 H Respiratory Rate 19 Blood Pressure 139/84 106/57 L Blood Pressure [Left Arm] Blood Pressure Mean 97 69 Blood Pressure Mean [Left Arm] Pulse Oximetry 96 Oxygen Delivery Method Oxygen Flow Rate Sepsis Recent Fever Within 48 Hours Sepsis New/Unexplained Change in Mental Status Sepsis Action Taken by Nursing 07/09/23 02:30 07/09/23 02:50 07/09/23 02:58 Temperature Temperature Source Pulse Rate 100 H 99 H Pulse Rate [Apical] Pulse Rate from SpO2 Sensor 100 H 96 H Respiratory Rate 23 Blood Pressure Blood Pressure [Left Arm] Blood Pressure Mean Blood Pressure Mean [Left Arm] Pulse Oximetry 97 95 Oxygen Delivery Method Oxygen Flow Rate Sepsis Recent Fever Within 48 Hours Sepsis New/Unexplained Change in Mental Status Sepsis Action Taken by Nursing Laboratory Data 07/10/23 02:06 07/10/23 02:06 Lab Results 07/08/23 07/09/23 07/09/23 Range/Units 22:53 00:03 01:00 WBC 12.03 H (4.8-10.8) K/ul RBC 3.54 L (4.20-5.40) M/uL Hgb 11.6 L (12.0-16.0) g/dl Hct 34.2 L (37.0-47.0) % MCV 96.6 (80.0-100.0) fL MCH 32.8 (25.0-34.0) pg MCHC 33.9 (32.0-36.0) g/dL RDW Std Deviation 52.8 H (36.4-46.3) fL RDW Coeff of Melissa 14.9 H (11.5-14.5) % Plt Count 50 L (130-400) K/uL MPV 9.9 (9.4-12.4) fL Immature Gran % (Auto) 0.7 % Neut % (Auto) 92.6 % Lymph % (Auto) 2.3 % [place] % (Auto) 4.1 % Eos % (Auto) 0.1 % Baso % (Auto) 0.2 % Neut # (Auto) 11.13 H (1.40-6.50) K/uL Lymph # (Auto) 0.28 L (1.20-3.40) K/uL [place] # (Auto) 0.49 (0.11-0.59) K/uL Eos # (Auto) 0.01 (0.00-0.50) K/uL Baso # (Auto) 0.03 (0.00-0.20) K/uL Immature Gran # (Auto) 0.09 (0.01-0.20) K/uL Ovalocytes 1+ Echinocytes 1+ Sodium 138 (136-145) mmol/L Potassium 4.2 (3.5-5.1) mmol/L Chloride 105 (98-107) mmol/L Carbon Dioxide 24 (21-32) mmol/L Anion Gap 9 (3-11) BUN 16 (6-23) mg/dl Creatinine 1.15 (0.6-1.2) mg/dl Est Cr Clr Drug Dosing 70.0 ml/min Est GFR ( Amer) 58.2 ml/min Est GFR (Non-Af Amer) 50.2 ml/min BUN/Creatinine Ratio 13.9 (10-20) Glucose 205 H (70-99(Fasting)) mg/dl Lactate 2.7 H* 3.6 H* (0.4-2.0) mmol/L Calcium 8.6 (8.6-10.3) mg/dl Magnesium 1.2 L (1.7-2.4) mg/dl Total Bilirubin 3.1 H (0.2-1.0) mg/dl Direct Bilirubin 0.6 H (0-0.2) mg/dl AST 44 H (13-39) U/L ALT 29 (7-52) U/L Alkaline Phosphatase 98 (34-104) U/L Troponin I High Sens 13.1 (0-14) pg/ml Total Protein 6.8 (6.0-8.3) gm/dl Albumin 3.0 L (3.4-5.0) gm/dl Procalcitonin 13.90 H (0-0.5) ng/ml Urine Color Urine Appearance (Clear) Urine pH (4.5-7.5) Ur Specific Elizabeth (1.000-1.030) Urine Protein (Negative) Urine Glucose (UA) (Negative) Urine Ketones (Negative) Urine Blood (Negative) Urine Nitrite (Negative) Urine Bilirubin (Negative) Urine Urobilinogen (Negative) Ur Leukocyte Esterase (Negative) Urine WBC (Auto) (0-5) /hpf Urine RBC (Auto) (0-4) /hpf U Hyaline Cast (Auto) (0-5) /lpf U Epithel Cells (Auto) (0-5) /lpf Urine Bacteria (Auto) (Negative) Adenovirus (PCR) Not Detected (NotDetected) B. pertussis DNA (PCR) Not Detected (NotDetected) B.parapertussis DNA PCR Not Detected (NotDetected) C. pneumoniae DNA (PCR) Not Detected (NotDetected) Coronavirus OC43 (PCR) Not Detected (NotDetected) Coronavirus HKU1 (PCR) Not Detected (NotDetected) Coronavirus 229E (PCR) Not Detected (NotDetected) SARS-CoV-2 (PCR) Not Detected (NotDetected) Coronavirus NL63 (PCR) Not Detected (NotDetected) Human Metapneumovir PCR Not Detected (NotDetected) Influenza Type A (PCR) Not Detected (NotDetected) Influenza Type B (PCR) Not Detected (NotDetected) M. pneumoniae (PCR) Not Detected (NotDetected) Parainfluenza 1 (PCR) Not Detected (NotDetected) Parainfluenza 2 (PCR) Not Detected (NotDetected) Parainfluenza 3 (PCR) Not Detected (NotDetected) Parainfluenza 4 (PCR) Not Detected (NotDetected) RSV (PCR) Not Detected (NotDetected) Entero/Rhino (PCR) Not Detected (NotDetected) 07/09/23 Range/Units 01:08 WBC (4.8-10.8) K/ul RBC (4.20-5.40) M/uL Hgb (12.0-16.0) g/dl Hct (37.0-47.0) % MCV (80.0-100.0) fL MCH (25.0-34.0) pg MCHC (32.0-36.0) g/dL RDW Std Deviation (36.4-46.3) fL RDW Coeff of Melissa (11.5-14.5) % Plt Count (130-400) K/uL MPV (9.4-12.4) fL Immature Gran % (Auto) % Neut % (Auto) % Lymph % (Auto) % [place] % (Auto) % Eos % (Auto) % Baso % (Auto) % Neut # (Auto) (1.40-6.50) K/uL Lymph # (Auto) (1.20-3.40) K/uL [place] # (Auto) (0.11-0.59) K/uL Eos # (Auto) (0.00-0.50) K/uL Baso # (Auto) (0.00-0.20) K/uL Immature Gran # (Auto) (0.01-0.20) K/uL Ovalocytes Echinocytes Sodium (136-145) mmol/L Potassium (3.5-5.1) mmol/L Chloride (98-107) mmol/L Carbon Dioxide (21-32) mmol/L Anion Gap (3-11) BUN (6-23) mg/dl Creatinine (0.6-1.2) mg/dl Est Cr Clr Drug Dosing ml/min Est GFR ( Amer) ml/min Est GFR (Non-Af Amer) ml/min BUN/Creatinine Ratio (10-20) Glucose (70-99(Fasting)) mg/dl Lactate (0.4-2.0) mmol/L Calcium (8.6-10.3) mg/dl Magnesium (1.7-2.4) mg/dl Total Bilirubin (0.2-1.0) mg/dl Direct Bilirubin (0-0.2) mg/dl AST (13-39) U/L ALT (7-52) U/L Alkaline Phosphatase (34-104) U/L Troponin I High Sens (0-14) pg/ml Total Protein (6.0-8.3) gm/dl Albumin (3.4-5.0) gm/dl Procalcitonin (0-0.5) ng/ml Urine Color [place] Urine Appearance Clear (Clear) Urine pH 5.0 (4.5-7.5) Ur Specific Elizabeth 1.016 (1.000-1.030) Urine Protein 1+ H (Negative) Urine Glucose (UA) Trace H (Negative) Urine Ketones Trace H (Negative) Urine Blood 1+ H (Negative) Urine Nitrite Positive A (Negative) Urine Bilirubin 1+ H (Negative) Urine Urobilinogen Negative (Negative) Ur Leukocyte Esterase Trace H (Negative) Urine WBC (Auto) 1-5 (0-5) /hpf Urine RBC (Auto) 0-4 (0-4) /hpf U Hyaline Cast (Auto) 5-10 H (0-5) /lpf U Epithel Cells (Auto) 20-30 H (0-5) /lpf Urine Bacteria (Auto) Negative (Negative) Adenovirus (PCR) (NotDetected) B. pertussis DNA (PCR) (NotDetected) B.parapertussis DNA PCR (NotDetected) C. pneumoniae DNA (PCR) (NotDetected) Coronavirus OC43 (PCR) (NotDetected) Coronavirus HKU1 (PCR) (NotDetected) Coronavirus 229E (PCR) (NotDetected) SARS-CoV-2 (PCR) (NotDetected) Coronavirus NL63 (PCR) (NotDetected) Human Metapneumovir PCR (NotDetected) Influenza Type A (PCR) (NotDetected) Influenza Type B (PCR) (NotDetected) M. pneumoniae (PCR) (NotDetected) Parainfluenza 1 (PCR) (NotDetected) Parainfluenza 2 (PCR) (NotDetected) Parainfluenza 3 (PCR) (NotDetected) Parainfluenza 4 (PCR) (NotDetected) RSV (PCR) (NotDetected) Entero/Rhino (PCR) (NotDetected) Administered Medications Acetaminophen (Acetaminophen 500 Mg Tab) 500 mg PO Q6H PRN PRN Reason: fever/pain Stop: 08/08/23 03:00 Last Admin: 07/09/23 17:19 Dose: 500 mg Documented By: Admin: 07/09/23 10:21 Dose: 500 mg Documented By: WILLY Buspirone HCl (Buspirone 7.5 Mg Tab) 7.5 mg PO BID [facility] Stop: 08/08/23 08:59 Last Admin: 07/10/23 07:46 Dose: 7.5 mg Documented By: Admin: 07/09/23 21:14 Dose: 7.5 mg Documented By: Admin: 07/09/23 10:00 Dose: 7.5 mg Documented By: WILLY Doxycycline Hyclate (Doxycycline Hyclate 50 Mg Cap) 50 mg PO BID [facility] Stop: 08/08/23 08:59 Last Admin: 07/10/23 07:46 Dose: 50 mg Documented By: Admin: 07/09/23 21:14 Dose: 50 mg Documented By: Admin: 07/09/23 10:00 Dose: 50 mg Documented By: WILLY Cefepime HCl 2,000 mg/ Syringe 20 mls @ 5 mls/min IV Q8H [facility]; Protocol Stop: 07/19/23 07:59 Last Admin: 07/10/23 15:04 Dose: 5 mls/min Documented By: Admin: 07/10/23 07:48 Dose: 5 mls/min Documented By: Admin: 07/09/23 23:32 Dose: 5 mls/min Documented By: Admin: 07/09/23 16:59 Dose: 5 mls/min Documented By: Admin: 07/09/23 07:52 Dose: 5 mls/min Documented By: WILLY Insulin Aspart (Insulin Aspart Per Unit Charge) 0 units SC ACHS [facility] Stop: 08/08/23 05:22 Last Admin: 07/10/23 13:15 Dose: 5 units Documented By: JOSEPH Co-signed By: OCTAVIO Admin: 07/10/23 08:52 Dose: 2 units Documented By: JOSEPH Co-signed By: OCTAVIO Admin: 07/09/23 20:45 Dose: 5 units Documented By: RICHARD Co-signed By: NATHAN Admin: 07/09/23 19:10 Dose: 5 units Documented By: RCIHARD Co-signed By: RIRI Admin: 07/09/23 12:43 Dose: 7 units Documented By: WILLY Co-signed By: GAVIN Admin: 07/09/23 06:20 Dose: 4 units Documented By: XIOMY Co-signed By: ERYN Insulin Glargine (Lantus Per Unit Charge) 10 units SQ BID [facility] Stop: 08/08/23 19:29 Last Admin: 07/10/23 08:52 Dose: 10 units Documented By: JOSEPH Co-signed By: OCTAVIO Admin: 07/09/23 20:45 Dose: 10 units Documented By: RICHARD Co-signed By: NATHAN Loperamide HCl (Loperamide Hcl 2 Mg Cap) 2 mg PO Q3H PRN PRN Reason: diarrhea Stop: 08/09/23 11:18 Last Admin: 07/10/23 11:33 Dose: 2 mg Documented By: JOSEPH Discontinued Medications Acetaminophen (Acetaminophen 500 Mg Tab) 1,000 mg PO NOW STA Stop: 07/08/23 23:43 Last Admin: 07/08/23 23:59 Dose: 1,000 mg Documented By: NATHAN Cefepime HCl (Cefepime 2,000 Mg/20 Ml Vial) Confirm Administered Dose 2,000 mg .ROUTE .STK-MED ONE Stop: 07/09/23 16:59 Last Admin: 07/09/23 17:00 Dose: Not Given Documented By: RICHARD Ceftriaxone Sodium (Ceftriaxone Sodium 2000mg/50ml D5w) Confirm Administered Dose 2,000 mg IV .STK-MED ONE Stop: 07/09/23 16:56 Last Admin: 07/09/23 16:59 Dose: Not Given Documented By: RICHARD Sodium Chloride (Nss) 1,000 mls @ 999 mls/hr IV .Q1H1M ONE Stop: 07/09/23 00:15 Last Infusion: 07/09/23 01:09 Dose: Infused Documented By: Admin: 07/08/23 23:59 Dose: 999 mls/hr Documented By: NATHAN Cefepime HCl (Maxipime) 2,000 mg in 20 mls @ 5 mls/min IV NOW STA; Protocol Stop: 07/08/23 23:45 Last Admin: 07/08/23 23:59 Dose: 5 mls/min Documented By: NATHAN Magnesium Sulfate/Dextrose (Magnesium Sulfate / D5w) 1 gm in 100 mls @ 100 mls/hr IV NOW STA Stop: 07/09/23 01:27 Last Infusion: 07/09/23 01:39 Dose: Infused Documented By: Admin: 07/09/23 00:38 Dose: 100 mls/hr Documented By: NATHAN Sodium Chloride (Nss) 1,000 mls @ 999 mls/hr IV .Q1H1M ONE Stop: 07/09/23 01:41 Last Infusion: 07/09/23 02:45 Dose: Infused Documented By: Admin: 07/09/23 01:13 Dose: 999 mls/hr Documented By: NATHAN Doxycycline Hyclate 100 mg/ (Dextrose) 100 mls @ 50 mls/hr IV NOW STA Stop: 07/09/23 03:39 Last Infusion: 07/09/23 04:34 Dose: Infused Documented By: Admin: 07/09/23 02:26 Dose: 50 mls/hr Documented By: NATHAN Magnesium Sulfate/Dextrose (Magnesium Sulfate / D5w) 1 gm in 100 mls @ 50 mls/hr IV Q2H [facility] Stop: 07/09/23 07:44 Last Infusion: 07/09/23 08:25 Dose: Infused Documented By: Admin: 07/09/23 06:09 Dose: 50 mls/hr Documented By: Infusion: 07/09/23 06:09 Dose: Infused Documented By: Admin: 07/09/23 04:17 Dose: 50 mls/hr Documented By: Infusion: 07/09/23 04:17 Dose: Infused Documented By: Admin: 07/09/23 02:23 Dose: 50 mls/hr Documented By: NATHAN Lactated Ringer's (Lr) 1,000 mls @ 250 mls/hr IV .Q4H STA Stop: 07/09/23 05:55 Last Infusion: 07/09/23 06:25 Dose: Infused Documented By: Admin: 07/09/23 02:23 Dose: 250 mls/hr Documented By: NATHAN Metronidazole (Flagyl) 500 mg in 100 mls @ 100 mls/hr IV Q8H [facility]; Protocol Stop: 07/13/23 09:59 Last Infusion: 07/09/23 18:07 Dose: Infused Documented By: Admin: 07/09/23 17:03 Dose: 100 mls/hr Documented By: Infusion: 07/09/23 11:37 Dose: Infused Documented By: Admin: 07/09/23 10:21 Dose: 100 mls/hr Documented By: WILLY Metronidazole (Flagyl) 500 mg in 100 mls @ 100 mls/hr IV ONE STA; Protocol Stop: 07/09/23 03:08 Last Infusion: 07/09/23 04:12 Dose: Infused Documented By: Admin: 07/09/23 02:27 Dose: 100 mls/hr Documented By: NATHAN Daptomycin 350 mg/ Syringe 7 mls @ 3.5 mls/min IV Q24H [facility]; Protocol Stop: 07/17/23 05:59 Last Admin: 07/10/23 06:12 Dose: 3.5 mls/min Documented By: JUNIOR Daptomycin 350 mg/ Syringe 7 mls @ 3.5 mls/min IV ONE STA; Protocol Stop: 07/09/23 03:53 Last Admin: 07/09/23 04:17 Dose: 3.5 mls/min Documented By: Lactated Ringer's (Lr) 1,000 mls @ 150 mls/hr IV .Q6H40M ONE Stop: 07/09/23 13:41 Last Infusion: 07/09/23 15:06 Dose: Infused Documented By: Admin: 07/09/23 07:26 Dose: 150 mls/hr Documented By: WILLY Albumin Human (Albumin 25%) 25 gm in 100 mls @ 50 mls/hr IV ONE ONE Stop: 07/09/23 21:28 Last Infusion: 07/09/23 21:52 Dose: Infused Documented By: Admin: 07/09/23 19:42 Dose: 50 mls/hr Documented By: RICHARD Albumin Human (Albumin 25%) 25 gm in 100 mls @ 50 mls/hr IV ONE ONE Stop: 07/10/23 03:24 Last Infusion: 07/10/23 03:37 Dose: Infused Documented By: Admin: 07/10/23 01:37 Dose: 50 mls/hr Documented By: JUNIOR Insulin Glargine (Lantus Per Unit Charge) 5 units SQ NOW STA Stop: 07/09/23 07:04 Last Admin: 07/09/23 07:26 Dose: 5 units Documented By: WILLY Co-signed By: TIEN Ioversol (Optiray 320 125ml) 115 ml IV ONCE ONE Stop: 07/09/23 06:09 Last Admin: 07/09/23 06:08 Dose: 115 ml Documented By: SHORTY Lorazepam (Lorazepam 0.5 Mg Tab) 0.5 mg PO NOW STA Stop: 07/09/23 10:56 Last Admin: 07/09/23 19:07 Dose: Not Given Documented By: RICHARD Ondansetron HCl (Ondansetron Inj 2 Mg/Ml 2 Ml Vial) 4 mg IV NOW STA Stop: 07/09/23 00:54 Last Admin: 07/09/23 01:12 Dose: 4 mg Documented By: NATHAN Imaging Data Radiologist's Impression: Chest X-Ray 07/08/23 23:02 XR chest 1V portable CLINICAL HISTORY: Sepsis TECHNIQUE: Single frontal radiograph of the chest was obtained. Comparison: Comparison is made to chest radiograph 06/26/2023 FINDINGS: No lines and tubes are seen. Cardiomegaly is noted. The lungs are clear. No evidence of pleural effusion or pneumothorax. IMPRESSION: No acute chest disease. Cardiomegaly is noted. ACT 112: Negative or not required by law. Electronically signed by: Esteban Tavarez M.D. 07/09/2023 8:22 AM Abdomen/Pelvis CT 07/09/23 02:52 CT abd pelvis IV con only CLINICAL HISTORY: abd pain TECHNIQUE: Helical axial images of the abdomen and pelvis were obtained and displayed. Automated dose lowering techniques and/or adjustment according to patient size were utilized for this exam. This exam was performed with intravenous contrast. CT DOSE: 2448.59 mGy.cm COMPARISON: Comparison is made to CT abdomen pelvis 06/25/2023 FINDINGS: Lower chest: Mosaic attenuation may represent air trapping. Liver: Nodular contour of the liver is seen compatible with cirrhosis. Gallbladder and biliary tree: Patient is status post cholecystectomy. No intra- or extrahepatic biliary ductal dilation. Pancreas: Unremarkable, no focal lesions. Spleen: Prominent splenomegaly is again seen with a craniocaudal measurement of approximately 19 cm. Adrenals: Unremarkable. Kidneys and ureters: Unremarkable. Bladder: Limited evaluation due to underdistention. Reproductive organs: Unremarkable. Bowel: A hiatal hernia is seen. Lymph nodes Retroperitoneal: Unremarkable. Pelvic: Subcentimeter lymph nodes are noted. Mesenteric: Unremarkable. Peritoneum: Normal. Vessels: Numerous venous collaterals are seen most prominently about the spleen. Abdominal wall: Unremarkable. Bones: Degenerative changes in the visualized spine. IMPRESSION: No acute abnormalities are seen. Nonspecific subcentimeter and prominently right external iliac lymph nodes are unchanged from prior exam. Redemonstration of cirrhosis with manifestations of portal hypertension. ACT 112: Negative or not required by law. Electronically signed by: Esteban Tavarez M.D. 07/09/2023 7:[address] 07/09/23 02:52 CT head/brain wo con CLINICAL HISTORY: lemon, low platelets Technique: Contiguous axial CT images of the head were acquired from the base of the skull to the vertex without intravenous contrast administration. Images were viewed in brain, subdural and bone windows. Automated dose lowering techniques and/or adjustment according to patient size were utilized for this exam. Comparison: Comparison is made to CT head 12/19/2016 Findings: The ventricles, basal cisterns, and cerebral sulci are normal. There is no acute intracranial hemorrhage or evidence of acute territorial infarction. Neither mass effect, shift of the midline structures, nor abnormal extra-axial fluid collections are shown. Imaged portions of the paranasal sinuses and mastoid air cells are clear. The orbits appear normal. There are no acute fractures of the calvaria or scalp swelling. Impression: No acute intracranial hemorrhage, no evidence of acute territorial infarction or other acute intracranial disease process. ACT 112: Negative or not required by law. Electronically signed by: Esteban Tavarez M.D. 07/09/2023 7:[address] 07/09/23 02:52 CT tib/fib RT w con CLINICAL HISTORY: recurrent swelling, sepsis TECHNIQUE: Multidetector row helical CT of the right lower leg was performed with intravenous contrast. Coronal and sagittal reformations were obtained. Automated dose lowering techniques and/or adjustment according to patient size were utilized for this examination. Comparison: Comparison is made to tibia and fibula radiograph 05/15/2022 FINDINGS: The osseous structures are without fracture or dislocation. The joint spaces are maintained. No joint effusion is seen. Soft tissue edema and skin thickening are seen compatible with cellulitis. No subcutaneous emphysema is seen. There is no drainable fluid collection. IMPRESSION: Findings compatible with cellulitis without evidence of osteomyelitis or abscess. ACT 112: Negative or not required by law. Electronically signed by: Esteban Tavarez M.D. 07/09/2023 7:30 AM Discharge Plan Visit Data Chief Complaint: Infection Stated Complaint: MULTIPLE SYNCOPAL AND EMISIS EPISODES ED Provider: Varsha Fritz Discharge Problem: Sepsis, Cellulitis of right lower extremity, UTI (urinary tract infection) Patient Disposition: Admitted As Inpatient Discharge Instructions Interventions: ED Discharge Assessment Last Done: 07/09/23 21:00
[2023-07-09] MEDS: cefTRIAXone SODIUM 2000MG/50ML D5W IV ONE (16:59)
[2023-07-09] MEDS: CEFEPIME 2,000 MG/20 ML VIAL ONE (17:00)
--- NOTE | 2023-07-09 17:21 | Communication Note ---
Date of Service: July 09, 2023 The patient was seen and examined in presence of the son in the emergency room. She was admitted with severe sepsis secondary to complicated UTI. Has been feeling a little better but he still has moderate shortness of breath and generalized weakness. Lactate level remains elevated at 5.2 but cannot give any more intravenous fluid due to history of cirrhosis and fluid overload. Will have a full progress note tomorrow. Recheck PRP and lactate this evening. Dr Enrique Hoffman
[2023-07-09 18:23] LABS: BUN Creatinine Ratio 19.8 (10-20); Calcium 7.9 mg/dl (8.6-10.3); Creatinine Clr Calc Pharmacy 75.6 ml/min; Est GFR (African American) 60.8 ml/min; Est GFR (Non-African American) 52.4 ml/min; Potassium 4.3 mmol/L (3.5-5.1)
[2023-07-09] MEDS: LORazepam 0.5 MG TAB PO STA (19:07)
[2023-07-09] MEDS: ALBUMIN 25% 25 GM/100 ML VIAL IV ONE (19:42)
[2023-07-09] MEDS: LANTUS PER UNIT CHARGE SQ SCH (20:45)
[2023-07-10] MEDS: ALBUMIN 25% 25 GM/100 ML VIAL IV ONE (01:37)
[2023-07-10 02:27] LABS: Basophils # (auto) 0.03 K/uL (0.00-0.20); Basophils % (auto) 0.2 %; Eosinophils # (auto) 0.05 K/uL (0.00-0.50); Eosinophils % (auto) 0.4 %; Hematocrit (blood only) 29.3 % (37.0-47.0); Immature Granulocytes # (auto) 0.25 K/uL (0.01-0.20); Immature Granulocytes % (auto) 1.9 %; Lymphocytes # (auto) 0.67 K/uL (1.20-3.40); Lymphocytes % (auto) 5.2 %; Mean Corpuscular Hemoglobin 32.7 pg (25.0-34.0); Mean Corpuscular Hgb Conc 34.1 g/dL (32.0-36.0); Mean Corpuscular Volume 95.8 fL (80.0-100.0); Mean Platelet Volume 9.6 fL (9.4-12.4); Monocytes # (auto) 0.63 K/uL (0.11-0.59); Monocytes % (auto) 4.9 %; Neutrophils # (auto) 11.26 K/uL (1.40-6.50); Neutrophils % (auto) 87.4 %; Platelet Count 50 K/uL (130-400); RDW Coefficient of Variation 15.4 % (11.5-14.5); RDW Standard Deviation 53.4 fL (36.4-46.3); Red Blood Count 3.06 M/uL (4.20-5.40); White Blood Count 12.89 K/ul (4.8-10.8)
[2023-07-10 02:34] LABS: Calcium 8.1 mg/dl (8.6-10.3); Creatinine Clr Calc Pharmacy 79.9 ml/min; Est GFR (Non-African American) 56.1 ml/min; Magnesium 1.8 mg/dl (1.7-2.4); Potassium 3.8 mmol/L (3.5-5.1)
[2023-07-10] MEDS: DAPTOmycin 350 MG in SYRINGE 0 ML IV SCH (06:12)
[2023-07-10] MEDS: LOPERAMIDE HCL 2 MG CAP PO PRN (11:33)
--- NOTE | 2023-07-10 14:27 | Hospitalist Progress Note ---
Date of Service July 10, 2023 Assessment & Plan (1) Severe sepsis: Plan: SIRS plus lactic acidosis Possible sources-right lower leg cellulitis without any osteomyelitis or abscess Lactic acid was very high at presentation but that has been normalized Urine culture came back negative for any infection C. difficile toxin has been negative Diarrhea persist Will give Imodium as needed MRSA scan has been negative-will discontinue daptomycin Continue with intravenous cefepime to cover Pseudomonas PT OT eval once medically stable Hypertension, BP on the lower side Syncope possibly from orthostasis given borderline BP Hold home BP meds for now given borderline BP. Check orthostatic vitals Blood pressure is on the lower side at 102/64 Will monitor Hyperlipidemia, on statin Rx DM 2 insulin requiring, well-controlled as of recent hemoglobin A1c of 6 last month Basal bolus insulin adjusted for n.p.o. status for now until CT results known, ISS BG goal 1 10-1 40, carb count coverage, hx NAFLD cirrhosis no overt decompensation CT abdomen pelvis showed hepatosplenomegaly without any ascites Chronic anemia, hemoglobin at baseline Chronic thrombocytopenia secondary to liver disease Possible deconditioning given recurrent admissions DVT prophylaxis with SCDs given thrombocytopenia if no LE DVT on venous ultrasound LE venous Dopplers rule out DVT Full code Patient's sons requesting updates providers. Mr. Esvin Lewis, contact #[phone]. Mr. Sin Joshua, contact #[phone]. Discussed with the son in the room with the patient Text document was generated using [employer] voice recognition software. It may contain grammatical or spelling errors. Kindly contact undersigned for clarification of any documentation item in question. Admission and Anticipated Discharge Date Admission Date: July 09, 2023 Subjective 07/10/2023 The patient was seen and examined in medical telemetry unit in presence of the son She has been complaining of abdominal discomfort and diarrhea Clinically not any better No fever and or chills, no nausea and or vomiting Review of Systems Review of Systems: All systems reviewed and are unremarkable except as noted below Physical Exam Physical Exam: Lying in bed comfortably Constitutional: well developed, well nourished, + ill appearing and + obese Eyes: PERRL, conjunctivae normal, anicteric sclerae ENMT: external ear and nose normal, oropharynx normal Neck: trachea midline, no thyromegaly Respiratory: no respiratory distress Auscultation: + diminished lung sounds and + crackles (Minimal bibasilar crackles) Cardiovascular: Rate/Rhythm: regular rate, regular rhythm and + bradycardic Heart Sounds: normal S1 and normal S2; no murmur Extremities: + edema (More on the right with lymphedema and chronic skin changes) Gastrointestinal (Abdomen): Inspection/Auscultation: normal bowel sounds; abdomen not distended Percussion/Palpation: + abdomen tender (Minimally tender all over without any guarding and rigidity) and abdomen soft Musculoskeletal: No acute arthritis involving any joint Neurologic: normal touch/pain/proprioception and moves all extremities; no focal motor deficits Lymphatic: no cervical or axillary lymphadenopathy Results & Data Results & Data Vital Signs (Past 12 Hours) Vital Signs Temp Pulse Pulse Resp BP Pulse Ox Pulse Ox 07/10/23 11:06 36.7 C 57 L 17 102/64 91 07/10/23 08:36 36.9 C 95 H 17 112/70 95 07/10/23 07:06 81 07/10/23 07:00 96 07/10/23 03:35 37 C 84 18 109/64 95 O2 Del Method O2 Del Method 07/10/23 11:06 Room Air 07/10/23 08:36 Room Air 07/10/23 07:06 07/10/23 07:00 Room Air 07/10/23 03:35 Room Air Laboratory Results Short CBC 07/10/23 Range/Units 02:06 WBC 12.89 H (4.8-10.8) K/ul Hgb 10.0 L (12.0-16.0) g/dl Hct 29.3 L (37.0-47.0) % Plt Count 50 L (130-400) K/uL BMP 07/09/23 07/10/23 17:44 02:06 Sodium 133 L 135 L Potassium 4.3 3.8 Chloride 104 106 Carbon Dioxide 24 23 BUN 22 22 Creatinine 1.11 1.05 Glucose 239 H 134 H Calcium 7.9 L 8.1 L Medications Administered Current Inpatient Medications Acetaminophen (Acetaminophen 500 Mg Tab) 500 mg PO Q6H PRN PRN Reason: fever/pain Stop: 08/08/23 03:00 Last Admin: 07/09/23 17:19 Dose: 500 mg Buspirone HCl (Buspirone 7.5 Mg Tab) 7.5 mg PO BID [facility] Stop: 08/08/23 08:59 Last Admin: 07/10/23 07:46 Dose: 7.5 mg Dextrose (Dextrose 50% 50 Ml Syringe) 25 - 50 ml IV UD PRN; Protocol PRN Reason: Hypoglycemia Protocol Stop: 08/08/23 05:22 Doxycycline Hyclate (Doxycycline Hyclate 50 Mg Cap) 50 mg PO BID [facility] Stop: 08/08/23 08:59 Last Admin: 07/10/23 07:46 Dose: 50 mg Glucagon (Glucagon For Inj 1 Mg Vial) 1 mg SQ UD PRN; Protocol PRN Reason: Hypoglycemia Protocol Stop: 08/08/23 05:22 Glucose (Glucose 10 Tab/Tube) 4 - 8 tab PO UD PRN; Protocol PRN Reason: Hypoglycemia Treatment Stop: 08/08/23 05:22 Glucose (Glucose 40% Gel 15 Gm Tube) 15 - 30 gm PO UD PRN; Protocol PRN Reason: Hypoglycemia Protocol Stop: 08/08/23 05:22 Promethazine HCl 12.5 mg/ (Sodium Chloride) 50.5 mls @ 202 mls/hr IV Q6H PRN PRN Reason: Nausea And Vomiting Stop: 08/08/23 03:00 Cefepime HCl 2,000 mg/ Syringe 20 mls @ 5 mls/min IV Q8H [facility]; Protocol Stop: 07/19/23 07:59 Last Admin: 07/10/23 07:48 Dose: 5 mls/min Daptomycin 350 mg/ Syringe 7 mls @ 3.5 mls/min IV Q24H [facility]; Protocol Stop: 07/17/23 05:59 Last Admin: 07/10/23 06:12 Dose: 3.5 mls/min Insulin Aspart (Insulin Aspart Per Unit Charge) 0 units SC ACHS [facility] Stop: 08/08/23 05:22 Last Admin: 07/10/23 13:15 Dose: 5 units Insulin Glargine (Lantus Per Unit Charge) 10 units SQ BID [facility] Stop: 08/08/23 19:29 Last Admin: 07/10/23 08:52 Dose: 10 units Loperamide HCl (Loperamide Hcl 2 Mg Cap) 2 mg PO Q3H PRN PRN Reason: diarrhea Stop: 08/09/23 11:18 Last Admin: 07/10/23 11:33 Dose: 2 mg Miscellaneous (Carbohydrates For Hypoglycemia ) 15 - 30 gm PO UD PRN PRN Reason: Hypoglycemia Protocol Stop: 08/08/23 05:22 Tramadol HCl (Tramadol Hcl 50 Mg Tablet) 25 - 50 mg PO Q4H PRN PRN Reason: Pain Stop: 08/08/23 03:00
[2023-07-11 06:07] LABS: Basophils # (auto) 0.02 K/uL (0.00-0.20); Basophils % (auto) 0.2 %; Eosinophils # (auto) 0.16 K/uL (0.00-0.50); Eosinophils % (auto) 1.7 %; Hematocrit (blood only) 27.5 % (37.0-47.0); Hemoglobin 9.2 g/dl (12.0-16.0); Immature Granulocytes # (auto) 0.11 K/uL (0.01-0.20); Immature Granulocytes % (auto) 1.2 %; Lymphocytes # (auto) 0.86 K/uL (1.20-3.40); Mean Corpuscular Hemoglobin 32.3 pg (25.0-34.0); Mean Corpuscular Hgb Conc 33.5 g/dL (32.0-36.0); Mean Corpuscular Volume 96.5 fL (80.0-100.0); Mean Platelet Volume 9.3 fL (9.4-12.4); Monocytes # (auto) 0.53 K/uL (0.11-0.59); Monocytes % (auto) 5.6 %; Neutrophils # (auto) 7.85 K/uL (1.40-6.50); Neutrophils % (auto) 82.3 %; Platelet Count 53 K/uL (130-400); RDW Coefficient of Variation 15.5 % (11.5-14.5); Red Blood Count 2.85 M/uL (4.20-5.40); White Blood Count 9.53 K/ul (4.8-10.8)
[2023-07-11 06:22] LABS: BUN Creatinine Ratio 21.9 (10-20); Calcium 8.2 mg/dl (8.6-10.3); Creatinine Clr Calc Pharmacy 80.1 ml/min; Est GFR (Non-African American) 56.1 ml/min; Magnesium 1.7 mg/dl (1.7-2.4); Phosphorus 2.6 mg/dl (2.5-4.9)
[2023-07-11] MEDS: FUROSEMIDE 40 MG/4 ML VIAL IV SCH (11:04)
--- NOTE | 2023-07-11 17:27 | Hospitalist Progress Note ---
Date of Service July 11, 2023 Assessment & Plan (1) Severe sepsis: Plan: SIRS plus lactic acidosis Possible sources-right lower leg cellulitis without any osteomyelitis or abscess Lactic acid was very high at presentation but that has been normalized Urine culture came back negative for any infection C. difficile toxin has been negative Will give Imodium as needed MRSA scan has been negative-will discontinue daptomycin Continue with intravenous cefepime to cover Pseudomonas PT OT eval once medically stable Clinically not much improved Diarrhea is improved Fluid overload Secondary to cirrhosis without any overt decompensation Has more swelling of the legs and feels short of breath Chest x-ray shows bibasilar changes likely secondary to fluid Will start Lasix 40 mg twice daily and monitor PRP Hypertension, BP on the lower side Syncope possibly from orthostasis given borderline BP Hold home BP meds for now given borderline BP. Check orthostatic vitals Blood pressure is on the lower side at 102/64 Will monitor Hyperlipidemia, on statin Rx DM 2 insulin requiring, well-controlled as of recent hemoglobin A1c of 6 last month Basal bolus insulin adjusted for n.p.o. status for now until CT results known, ISS BG goal 1 10-1 40, carb count coverage, hx NAFLD cirrhosis no overt decompensation CT abdomen pelvis showed hepatosplenomegaly without any ascites Chronic anemia, hemoglobin at baseline Chronic thrombocytopenia secondary to liver disease Possible deconditioning given recurrent admissions DVT prophylaxis with SCDs given thrombocytopenia if no LE DVT on venous ultrasound LE venous Dopplers rule out DVT Full code Patient's sons requesting updates providers. Mr. Esvin Lewis, contact #[phone]. Mr. Merrick Lewis, contact #[phone]. Discussed with the son in the room with the patient Text document was generated using [employer] voice recognition software. It may contain grammatical or spelling errors. Kindly contact undersigned for clarification of any documentation item in question. Admission and Anticipated Discharge Date Admission Date: July 09, 2023 Subjective 07/10/2023 The patient was seen and examined in medical telemetry unit in presence of the son She has been complaining of abdominal discomfort and diarrhea Clinically not any better No fever and or chills, no nausea and or vomiting 07/11/2023 Patient was seen and examined in medical telemetry unit She has been feeling bloated and more shortness of breath Abdominal pain is diminished and diarrhea is improved Has been saturating normally on room air Review of Systems Review of Systems: All systems reviewed and are unremarkable except as noted below Physical Exam Physical Exam: Lying in bed comfortably Constitutional: well developed, well nourished, + ill appearing and + obese Eyes: PERRL, conjunctivae normal, anicteric sclerae ENMT: external ear and nose normal, oropharynx normal Neck: trachea midline, no thyromegaly Respiratory: no respiratory distress Auscultation: + diminished lung sounds and + crackles (Minimal bibasilar crackles) Cardiovascular: Rate/Rhythm: regular rate, regular rhythm and + bradycardic Heart Sounds: normal S1 and normal S2; no murmur Extremities: + edema (More on the right with lymphedema and chronic skin changes) Gastrointestinal (Abdomen): Inspection/Auscultation: normal bowel sounds; abdomen not distended Percussion/Palpation: + abdomen tender (Minimally tender all over without any guarding and rigidity) and abdomen soft Neurologic: normal touch/pain/proprioception and moves all extremities; no focal motor deficits Lymphatic: no cervical or axillary lymphadenopathy Results & Data Results & Data Vital Signs (Past 12 Hours) Vital Signs Temp Pulse Pulse Resp BP Pulse Ox O2 Del Method 07/11/23 15:55 36.8 C 74 19 113/68 98 Room Air 07/11/23 15:37 74 07/11/23 11:56 36.7 C 77 19 122/72 95 Room Air 07/11/23 07:50 36.8 C 75 19 110/65 95 Room Air 07/11/23 07:13 77 Laboratory Results Short CBC 07/11/23 Range/Units 05:18 WBC 9.53 (4.8-10.8) K/ul Hgb 9.2 L (12.0-16.0) g/dl Hct 27.5 L (37.0-47.0) % Plt Count 53 L (130-400) K/uL BMP 07/11/23 05:18 Sodium 135 L Potassium 4.0 Chloride 107 Carbon Dioxide 23 BUN 23 Creatinine 1.05 Glucose 128 H Calcium 8.2 L Medications Administered Current Inpatient Medications Acetaminophen (Acetaminophen 500 Mg Tab) 500 mg PO Q6H PRN PRN Reason: fever/pain Stop: 08/08/23 03:00 Last Admin: 07/09/23 17:19 Dose: 500 mg Buspirone HCl (Buspirone 7.5 Mg Tab) 7.5 mg PO BID [facility] Stop: 08/08/23 08:59 Last Admin: 07/11/23 07:43 Dose: 7.5 mg Dextrose (Dextrose 50% 50 Ml Syringe) 25 - 50 ml IV UD PRN; Protocol PRN Reason: Hypoglycemia Protocol Stop: 08/08/23 05:22 Doxycycline Hyclate (Doxycycline Hyclate 50 Mg Cap) 50 mg PO BID [facility] Stop: 08/08/23 08:59 Last Admin: 07/11/23 07:43 Dose: 50 mg Furosemide (Furosemide 40 Mg/4 Ml Vial) 40 mg IV [id number] [facility] Stop: 08/10/23 10:59 Last Admin: 07/11/23 16:16 Dose: 40 mg Glucagon (Glucagon For Inj 1 Mg Vial) 1 mg SQ UD PRN; Protocol PRN Reason: Hypoglycemia Protocol Stop: 08/08/23 05:22 Glucose (Glucose 10 Tab/Tube) 4 - 8 tab PO UD PRN; Protocol PRN Reason: Hypoglycemia Treatment Stop: 08/08/23 05:22 Glucose (Glucose 40% Gel 15 Gm Tube) 15 - 30 gm PO UD PRN; Protocol PRN Reason: Hypoglycemia Protocol Stop: 08/08/23 05:22 Promethazine HCl 12.5 mg/ (Sodium Chloride) 50.5 mls @ 202 mls/hr IV Q6H PRN PRN Reason: Nausea And Vomiting Stop: 08/08/23 03:00 Cefepime HCl 2,000 mg/ Syringe 20 mls @ 5 mls/min IV Q8H [facility]; Protocol Stop: 07/19/23 07:59 Last Admin: 07/11/23 16:16 Dose: 5 mls/min Insulin Aspart (Insulin Aspart Per Unit Charge) 0 units SC ACHS [facility] Stop: 08/08/23 05:22 Last Admin: 07/11/23 12:45 Dose: 4 units Insulin Glargine (Lantus Per Unit Charge) 10 units SQ BID [facility] Stop: 08/08/23 19:29 Last Admin: 07/11/23 08:40 Dose: 10 units Loperamide HCl (Loperamide Hcl 2 Mg Cap) 2 mg PO Q3H PRN PRN Reason: diarrhea Stop: 08/09/23 11:18 Last Admin: 07/10/23 17:56 Dose: 2 mg Miscellaneous (Carbohydrates For Hypoglycemia ) 15 - 30 gm PO UD PRN PRN Reason: Hypoglycemia Protocol Stop: 08/08/23 05:22 Tramadol HCl (Tramadol Hcl 50 Mg Tablet) 25 - 50 mg PO Q4H PRN PRN Reason: Pain Stop: 08/08/23 03:00
[2023-07-12 06:31] LABS: BUN Creatinine Ratio 21.6 (10-20); Calcium 8.3 mg/dl (8.6-10.3); Creatinine Clr Calc Pharmacy 80.1 ml/min; Est GFR (African American) 67.3 ml/min; Est GFR (Non-African American) 58.1 ml/min; Potassium 3.4 mmol/L (3.5-5.1)
--- NOTE | 2023-07-12 16:00 | Hospitalist Progress Note ---
Date of Service July 12, 2023 Assessment & Plan (1) Severe sepsis: Plan: SIRS plus lactic acidosis Possible sources-right lower leg cellulitis without any osteomyelitis or abscess Lactic acid was very high at presentation but that has been normalized Urine culture came back negative for any infection C. difficile toxin has been negative Will give Imodium as needed MRSA scan has been negative-will discontinue daptomycin Continue with intravenous cefepime to cover Pseudomonas PT OT eval once medically stable Clinically not much improved Diarrhea is improved Clinically much better today and will continue current antibiotic Fluid overload Secondary to cirrhosis without any overt decompensation Has more swelling of the legs and feels short of breath Chest x-ray shows bibasilar changes likely secondary to fluid Will start Lasix 40 mg twice daily and monitor PRP Still has +738 2 mL of fluid balance Advised to drink up to 1.5 L in 24 hours not more than that and will continue intravenous Lasix Hypertension, BP on the lower side Syncope possibly from orthostasis given borderline BP Hold home BP meds for now given borderline BP. Check orthostatic vitals Blood pressure is on the lower side at 102/64 Will monitor Hyperlipidemia, on statin Rx DM 2 insulin requiring, well-controlled as of recent hemoglobin A1c of 6 last month Basal bolus insulin adjusted for n.p.o. status for now until CT results known, ISS BG goal 1 10-1 40, carb count coverage, hx NAFLD cirrhosis no overt decompensation CT abdomen pelvis showed hepatosplenomegaly without any ascites Chronic anemia, hemoglobin at baseline Chronic thrombocytopenia secondary to liver disease Possible deconditioning given recurrent admissions DVT prophylaxis with SCDs given thrombocytopenia if no LE DVT on venous ultrasound LE venous Dopplers rule out DVT Full code Patient's sons requesting updates providers. Mr. Esvin Lewis, contact #[phone]. Mr. Sin Joshua, contact #[phone]. Discussed with the son in the room with the patient Text document was generated using [employer] voice recognition software. It may contain grammatical or spelling errors. Kindly contact undersigned for clarification of any documentation item in question. Admission and Anticipated Discharge Date Admission Date: July 09, 2023 Subjective 07/10/2023 The patient was seen and examined in medical telemetry unit in presence of the son She has been complaining of abdominal discomfort and diarrhea Clinically not any better No fever and or chills, no nausea and or vomiting 07/11/2023 Patient was seen and examined in medical telemetry unit She has been feeling bloated and more shortness of breath Abdominal pain is diminished and diarrhea is improved Has been saturating normally on room air 07/12/2023 The patient was seen and examined in medical telemetry unit She has been feeling much better Feels less bloated and no shortness of breath at rest Leg swelling persists Review of Systems Review of Systems: All systems reviewed and are unremarkable except as noted below Physical Exam Physical Exam: Lying in bed comfortably Constitutional: well developed, well nourished, + ill appearing and + obese Eyes: PERRL, conjunctivae normal, anicteric sclerae ENMT: external ear and nose normal, oropharynx normal Neck: trachea midline, no thyromegaly Respiratory: no respiratory distress Auscultation: + diminished lung sounds and + crackles (Minimal bibasilar crackles) Cardiovascular: Rate/Rhythm: regular rate, regular rhythm and + bradycardic Heart Sounds: normal S1 and normal S2; no murmur Extremities: + edema (More on the right with lymphedema and chronic skin changes) Gastrointestinal (Abdomen): Inspection/Auscultation: normal bowel sounds; abdomen not distended Percussion/Palpation: + abdomen tender (Minimally tender all over without any guarding and rigidity) and abdomen soft Musculoskeletal: No acute arthritis involving any of the joint Neurologic: normal touch/pain/proprioception and moves all extremities; no focal motor deficits Lymphatic: no cervical or axillary lymphadenopathy Results & Data Results & Data Vital Signs (Past 12 Hours) Vital Signs Temp Pulse Pulse Resp BP Pulse Ox O2 Del Method 07/12/23 15:46 36.7 C 74 18 130/73 96 Room Air 07/12/23 12:01 36.7 C 76 18 119/70 94 Room Air 07/12/23 08:31 36.9 C 74 18 100/57 L 93 Room Air 07/12/23 07:24 71 07/12/23 04:11 37 C 75 18 95/55 L 94 Room Air Laboratory Results BMP 07/12/23 05:18 Sodium 137 Potassium 3.4 L Chloride 103 Carbon Dioxide 26 BUN 22 Creatinine 1.02 Glucose 109 H Calcium 8.3 L Medications Administered Current Inpatient Medications Acetaminophen (Acetaminophen 500 Mg Tab) 500 mg PO Q6H PRN PRN Reason: fever/pain Stop: 08/08/23 03:00 Last Admin: 07/09/23 17:19 Dose: 500 mg Buspirone HCl (Buspirone 7.5 Mg Tab) 7.5 mg PO BID [facility] Stop: 08/08/23 08:59 Last Admin: 07/12/23 08:33 Dose: 7.5 mg Dextrose (Dextrose 50% 50 Ml Syringe) 25 - 50 ml IV UD PRN; Protocol PRN Reason: Hypoglycemia Protocol Stop: 08/08/23 05:22 Doxycycline Hyclate (Doxycycline Hyclate 50 Mg Cap) 50 mg PO BID [facility] Stop: 08/08/23 08:59 Last Admin: 07/12/23 08:32 Dose: 50 mg Furosemide (Furosemide 40 Mg/4 Ml Vial) 40 mg IV BID17 [facility] Stop: 08/10/23 10:59 Last Admin: 07/12/23 08:32 Dose: 40 mg Glucagon (Glucagon For Inj 1 Mg Vial) 1 mg SQ UD PRN; Protocol PRN Reason: Hypoglycemia Protocol Stop: 08/08/23 05:22 Glucose (Glucose 10 Tab/Tube) 4 - 8 tab PO UD PRN; Protocol PRN Reason: Hypoglycemia Treatment Stop: 08/08/23 05:22 Glucose (Glucose 40% Gel 15 Gm Tube) 15 - 30 gm PO UD PRN; Protocol PRN Reason: Hypoglycemia Protocol Stop: 08/08/23 05:22 Promethazine HCl 12.5 mg/ (Sodium Chloride) 50.5 mls @ 202 mls/hr IV Q6H PRN PRN Reason: Nausea And Vomiting Stop: 08/08/23 03:00 Cefepime HCl 2,000 mg/ Syringe 20 mls @ 5 mls/min IV Q8H [facility]; Protocol Stop: 07/19/23 07:59 Last Admin: 07/12/23 08:32 Dose: 5 mls/min Insulin Aspart (Insulin Aspart Per Unit Charge) 0 units SC ACHS [facility] Stop: 08/08/23 05:22 Last Admin: 07/12/23 12:54 Dose: 2 units Insulin Glargine (Lantus Per Unit Charge) 10 units SQ BID [facility] Stop: 08/08/23 19:29 Last Admin: 07/12/23 09:12 Dose: 10 units Loperamide HCl (Loperamide Hcl 2 Mg Cap) 2 mg PO Q3H PRN PRN Reason: diarrhea Stop: 08/09/23 11:18 Last Admin: 07/10/23 17:56 Dose: 2 mg Miscellaneous (Carbohydrates For Hypoglycemia ) 15 - 30 gm PO UD PRN PRN Reason: Hypoglycemia Protocol Stop: 08/08/23 05:22 Tramadol HCl (Tramadol Hcl 50 Mg Tablet) 25 - 50 mg PO Q4H PRN PRN Reason: Pain Stop: 08/08/23 03:00
[2023-07-13 06:16] LABS: BUN Creatinine Ratio 22.9 (10-20); Calcium 8.3 mg/dl (8.6-10.3); Creatinine Clr Calc Pharmacy 83.3 ml/min; Est GFR (African American) 72.4 ml/min; Est GFR (Non-African American) 62.5 ml/min; Magnesium 1.4 mg/dl (1.7-2.4); Potassium 3.2 mmol/L (3.5-5.1)
[2023-07-13] MEDS: PROMETHAZINE HCL 12.5 MG in SODIUM CHLORIDE 0.9% 50 ML IV PRN (08:50)
[2023-07-13] MEDS: MAGNESIUM SULFATE / D5W 1 GM/100 ML BAG IV SCH (08:51)
[2023-07-13] MEDS: POTASSIUM CHLORIDE CRTAB 20 MEQ TABCR PO STA (08:51)
--- NOTE | 2023-07-13 13:38 | Hospitalist Progress Note ---
Date of Service July 13, 2023 Assessment & Plan (1) Severe sepsis: Plan: SIRS plus lactic acidosis Possible sources-right lower leg cellulitis without any osteomyelitis or abscess Lactic acid was very high at presentation but that has been normalized Urine culture came back negative for any infection C. difficile toxin has been negative Will give Imodium as needed MRSA scan has been negative-will discontinue daptomycin Continue with intravenous cefepime to cover Pseudomonas PT OT eval once medically stable Clinically not much improved Diarrhea is improved Clinically much better today and will continue current antibiotic Right leg cellulitis has improved a lot-no open wounds Will continue IV antibiotic with cefepime for now and give oral on discharge to finish the course of 10 days in total Fluid overload Secondary to cirrhosis without any overt decompensation Has more swelling of the legs and feels short of breath Chest x-ray shows bibasilar changes likely secondary to fluid Will start Lasix 40 mg twice daily and monitor PRP Still has +738 2 mL of fluid balance Advised to drink up to 1.5 L in 24 hours not more than that and will continue intravenous Lasix Will supplement electrolytes PT and OT evaluation for discharge planning Hypertension, BP on the lower side Syncope possibly from orthostasis given borderline BP Hold home BP meds for now given borderline BP. Check orthostatic vitals Blood pressure is on the lower side at 102/64 Will monitor Hyperlipidemia, on statin Rx DM 2 insulin requiring, well-controlled as of recent hemoglobin A1c of 6 last month Basal bolus insulin adjusted for n.p.o. status for now until CT results known, ISS BG goal 1 10-1 40, carb count coverage, hx NAFLD cirrhosis no overt decompensation CT abdomen pelvis showed hepatosplenomegaly without any ascites Chronic anemia, hemoglobin at baseline Chronic thrombocytopenia secondary to liver disease Possible deconditioning given recurrent admissions DVT prophylaxis with SCDs given thrombocytopenia if no LE DVT on venous ultrasound LE venous Dopplers rule out DVT Full code Patient's sons requesting updates providers. Mr. Mcallister Joshua, contact #[phone]. . Merrick Joshua, contact #[phone]. Discussed with the son in the room with the patient Text document was generated using [employer] voice recognition software. It may contain grammatical or spelling errors. Kindly contact undersigned for clarification of any documentation item in question. Admission and Anticipated Discharge Date Admission Date: July 09, 2023 Subjective 07/10/2023 The patient was seen and examined in medical telemetry unit in presence of the son She has been complaining of abdominal discomfort and diarrhea Clinically not any better No fever and or chills, no nausea and or vomiting 07/11/2023 Patient was seen and examined in medical telemetry unit She has been feeling bloated and more shortness of breath Abdominal pain is diminished and diarrhea is improved Has been saturating normally on room air 07/12/2023 The patient was seen and examined in medical telemetry unit She has been feeling much better Feels less bloated and no shortness of breath at rest Leg swelling persists 07/13/2023 The patient was seen and examined in medical telemetry unit She has been feeling much better Right leg swelling has improved and shortness of breath is resolved She has had nausea and vomited once this morning Denies any other symptoms Review of Systems Review of Systems: All systems reviewed and are unremarkable except as noted below Physical Exam Physical Exam: Lying in bed comfortably Constitutional: well developed, well nourished, + ill appearing and + obese Eyes: PERRL, conjunctivae normal, anicteric sclerae ENMT: external ear and nose normal, oropharynx normal Neck: trachea midline, no thyromegaly Respiratory: no respiratory distress Auscultation: + diminished lung sounds and + crackles (Minimal bibasilar crackles) Cardiovascular: Rate/Rhythm: regular rate, regular rhythm and + bradycardic Heart Sounds: normal S1 and normal S2; no murmur Extremities: + edema (More on the right with lymphedema and chronic skin changes) Gastrointestinal (Abdomen): Inspection/Auscultation: normal bowel sounds; abdomen not distended Percussion/Palpation: + abdomen tender (Minimally tender all over without any guarding and rigidity) and abdomen soft Musculoskeletal: No acute arthritis involving any of the joint Neurologic: normal touch/pain/proprioception and moves all extremities; no focal motor deficits Lymphatic: no cervical or axillary lymphadenopathy Results & Data Results & Data Vital Signs (Past 12 Hours) Vital Signs Temp Pulse Resp BP BP Pulse Ox O2 Del Method 07/13/23 11:45 36.9 C 85 18 134/69 95 Room Air 07/13/23 07:48 36.6 C 69 18 115/69 97 Room Air 07/13/23 03:05 36.6 C 69 20 103/55 L 93 Room Air Laboratory Results [facility] 07/13/23 05:24 Sodium 137 Potassium 3.2 L Chloride 101 Carbon Dioxide 27 BUN 22 Creatinine 0.96 Glucose 109 H Calcium 8.3 L Medications Administered Current Inpatient Medications Acetaminophen (Acetaminophen 500 Mg Tab) 500 mg PO Q6H PRN PRN Reason: fever/pain Stop: 08/08/23 03:00 Last Admin: 07/12/23 20:09 Dose: 500 mg Buspirone HCl (Buspirone 7.5 Mg Tab) 7.5 mg PO BID [facility] Stop: 08/08/23 08:59 Last Admin: 07/13/23 07:38 Dose: 7.5 mg Dextrose (Dextrose 50% 50 Ml Syringe) 25 - 50 ml IV UD PRN; Protocol PRN Reason: Hypoglycemia Protocol Stop: 08/08/23 05:22 Doxycycline Hyclate (Doxycycline Hyclate 50 Mg Cap) 50 mg PO BID [facility] Stop: 08/08/23 08:59 Last Admin: 07/13/23 07:37 Dose: 50 mg Furosemide (Furosemide 40 Mg/4 Ml Vial) 40 mg IV [id number] [facility] Stop: 08/10/23 10:59 Last Admin: 07/13/23 07:37 Dose: 40 mg Glucagon (Glucagon For Inj 1 Mg Vial) 1 mg SQ UD PRN; Protocol PRN Reason: Hypoglycemia Protocol Stop: 08/08/23 05:22 Glucose (Glucose 10 Tab/Tube) 4 - 8 tab PO UD PRN; Protocol PRN Reason: Hypoglycemia Treatment Stop: 08/08/23 05:22 Glucose (Glucose 40% Gel 15 Gm Tube) 15 - 30 gm PO UD PRN; Protocol PRN Reason: Hypoglycemia Protocol Stop: 08/08/23 05:22 Promethazine HCl 12.5 mg/ (Sodium Chloride) 50.5 mls @ 202 mls/hr IV Q6H PRN PRN Reason: Nausea And Vomiting Stop: 08/08/23 03:00 Last Infusion: 07/13/23 09:16 Dose: Infused Cefepime HCl 2,000 mg/ Syringe 20 mls @ 5 mls/min IV Q8H [facility]; Protocol Stop: 07/19/23 07:59 Last Admin: 07/13/23 07:44 Dose: 5 mls/min Insulin Aspart (Insulin Aspart Per Unit Charge) 0 units SC ACHS [facility] Stop: 08/08/23 05:22 Last Admin: 07/13/23 09:10 Dose: 3 units Insulin Glargine (Lantus Per Unit Charge) 10 units SQ BID [facility] Stop: 08/08/23 19:29 Last Admin: 07/13/23 07:43 Dose: 10 units Loperamide HCl (Loperamide Hcl 2 Mg Cap) 2 mg PO Q3H PRN PRN Reason: diarrhea Stop: 08/09/23 11:18 Last Admin: 07/10/23 17:56 Dose: 2 mg Miscellaneous (Carbohydrates For Hypoglycemia ) 15 - 30 gm PO UD PRN PRN Reason: Hypoglycemia Protocol Stop: 08/08/23 05:22 Tramadol HCl (Tramadol Hcl 50 Mg Tablet) 25 - 50 mg PO Q4H PRN PRN Reason: Pain Stop: 08/08/23 03:00
[2023-07-14 07:14] LABS: Basophils # (auto) 0.03 K/uL (0.00-0.20); Basophils % (auto) 0.4 %; Eosinophils # (auto) 0.23 K/uL (0.00-0.50); Eosinophils % (auto) 3.4 %; Hemoglobin 10.4 g/dl (12.0-16.0); Immature Granulocytes # (auto) 0.05 K/uL (0.01-0.20); Immature Granulocytes % (auto) 0.7 %; Lymphocytes # (auto) 1.36 K/uL (1.20-3.40); Mean Corpuscular Hemoglobin 32.1 pg (25.0-34.0); Mean Corpuscular Hgb Conc 33.5 g/dL (32.0-36.0); Mean Corpuscular Volume 95.7 fL (80.0-100.0); Mean Platelet Volume 9.5 fL (9.4-12.4); Monocytes # (auto) 0.67 K/uL (0.11-0.59); Monocytes % (auto) 9.9 %; Neutrophils # (auto) 4.46 K/uL (1.40-6.50); Neutrophils % (auto) 65.6 %; Platelet Count 66 K/uL (130-400); RDW Coefficient of Variation 14.6 % (11.5-14.5); RDW Standard Deviation 51.6 fL (36.4-46.3); Red Blood Count 3.24 M/uL (4.20-5.40)
[2023-07-14 07:40] LABS: BUN Creatinine Ratio 21.9 (10-20); Calcium 8.4 mg/dl (8.6-10.3); Creatinine Clr Calc Pharmacy 75.1 ml/min; Est GFR (Non-African American) 56.1 ml/min; Magnesium 1.7 mg/dl (1.7-2.4); Phosphorus 3.1 mg/dl (2.5-4.9); Potassium 3.3 mmol/L (3.5-5.1)
[2023-07-14] MEDS: POTASSIUM CHLORIDE CRTAB 20 MEQ TABCR PO STA (08:17)
--- NOTE | 2023-07-14 12:58 | Hospitalist Progress Note ---
Date of Service July 14, 2023 Assessment & Plan (1) Severe sepsis: Plan: SIRS plus lactic acidosis Possible sources-right lower leg cellulitis without any osteomyelitis or abscess Lactic acid was very high at presentation but that has been normalized Urine culture came back negative for any infection C. difficile toxin has been negative Will give Imodium as needed MRSA scan has been negative-will discontinue daptomycin Continue with intravenous cefepime to cover Pseudomonas PT OT eval once medically stable Clinically not much improved Diarrhea is improved Clinically much better today and will continue current antibiotic Right leg cellulitis has improved a lot-no open wounds Will continue IV antibiotic with cefepime for now and give oral on discharge to finish the course of 10 days in total Right lower extremity is much better-minimal chronic redness persist but no evidence of spreading cellulitis or abscess or wound She will be given oral cefdinir and will be discharged home this afternoon Fluid overload Secondary to cirrhosis without any overt decompensation Has more swelling of the legs and feels short of breath Chest x-ray shows bibasilar changes likely secondary to fluid Will start Lasix 40 mg twice daily and monitor PRP Still has +738 2 mL of fluid balance Advised to drink up to 1.5 L in 24 hours not more than that and will continue intravenous Lasix Will supplement electrolytes PT and OT evaluation for discharge planning Will need regular furosemide doses and potassium supplement on discharge Strongly advised to make an appointment with ager operator as an outpatient Hypertension, BP on the lower side Syncope possibly from orthostasis given borderline BP Hold home BP meds for now given borderline BP. Check orthostatic vitals Blood pressure is on the lower side at 102/64 Will monitor Hyperlipidemia, on statin Rx DM 2 insulin requiring, well-controlled as of recent hemoglobin A1c of 6 last month Basal bolus insulin adjusted for n.p.o. status for now until CT results known, ISS BG goal 1 10-1 40, carb count coverage, Blood sugar seems to be reasonably controlled hx NAFLD cirrhosis no overt decompensation CT abdomen pelvis showed hepatosplenomegaly without any ascites She has to reschedule her GI appointment Chronic anemia, hemoglobin at baseline Chronic thrombocytopenia secondary to liver disease Possible deconditioning given recurrent admissions DVT prophylaxis with SCDs given thrombocytopenia if no LE DVT on venous ultrasound LE venous Dopplers rule out DVT Full code Patient's sons requesting updates providers. Mr. Mcallister Joshua, contact #[phone]. Orville Lewis, contact #[phone]. Discussed with the son in the room with the patient Will be discharged home this afternoon Text document was generated using [employer] voice recognition software. It may contain grammatical or spelling errors. Kindly contact undersigned for clarification of any documentation item in question. Admission and Anticipated Discharge Date Admission Date: July 09, 2023 Subjective 07/10/2023 The patient was seen and examined in medical telemetry unit in presence of the son She has been complaining of abdominal discomfort and diarrhea Clinically not any better No fever and or chills, no nausea and or vomiting 07/11/2023 Patient was seen and examined in medical telemetry unit She has been feeling bloated and more shortness of breath Abdominal pain is diminished and diarrhea is improved Has been saturating normally on room air 07/12/2023 The patient was seen and examined in medical telemetry unit She has been feeling much better Feels less bloated and no shortness of breath at rest Leg swelling persists 07/13/2023 The patient was seen and examined in medical telemetry unit She has been feeling much better Right leg swelling has improved and shortness of breath is resolved She has had nausea and vomited once this morning Denies any other symptoms 07/14/2023 The patient was seen and examined in medical telemetry unit She has been feeling much better Denies any shortness of breath at rest and has been ambulating in the bathroom but has not had a physical therapy yet Her legs are much better and the redness and swelling of the right lower extremity have improved She will be discharged home this afternoon Review of Systems Review of Systems: All systems reviewed and are unremarkable except as noted below Physical Exam Physical Exam: Lying in bed comfortably Constitutional: well developed, well nourished, + ill appearing and + obese Eyes: PERRL, conjunctivae normal, anicteric sclerae ENMT: external ear and nose normal, oropharynx normal Neck: trachea midline, no thyromegaly Respiratory: no respiratory distress Auscultation: + diminished lung sounds and + crackles (Minimal bibasilar crackles) Cardiovascular: Rate/Rhythm: regular rate, regular rhythm and + bradycardic Heart Sounds: normal S1 and normal S2; no murmur Extremities: + edema (More on the right with lymphedema and chronic skin changes) Gastrointestinal (Abdomen): Inspection/Auscultation: normal bowel sounds; abdomen not distended Percussion/Palpation: + abdomen tender (Minimally tender all over without any guarding and rigidity) and abdomen soft Musculoskeletal: Chronic edema of the right lower extremity with chronic skin changes and chronic redness Neurologic: normal touch/pain/proprioception and moves all extremities; no focal motor deficits Lymphatic: no cervical or axillary lymphadenopathy Results & Data Results & Data Vital Signs (Past 12 Hours) Vital Signs Temp Pulse Pulse Pulse Resp BP Pulse Ox 07/14/23 12:00 36.7 C 74 16 152/73 H 100 07/14/23 08:00 70 07/14/23 07:50 36.8 C 72 17 134/75 98 07/14/23 07:43 36.8 C 73 17 119/72 96 07/14/23 07:00 36.7 C 74 18 152/73 H 100 07/14/23 04:22 36.9 C 74 20 106/59 L 95 07/14/23 01:05 73 O2 Del Method 07/14/23 12:00 Room Air 07/14/23 08:00 07/14/23 07:50 Room Air 07/14/23 07:43 Room Air 07/14/23 07:00 Room Air 07/14/23 04:22 Room Air 07/14/23 01:05 Laboratory Results Short CBC 07/14/23 Range/Units 06:52 WBC 6.80 (4.8-10.8) K/ul Hgb 10.4 L (12.0-16.0) g/dl Hct 31.0 L (37.0-47.0) % Plt Count 66 L (130-400) K/uL BMP 07/14/23 06:52 Sodium 138 Potassium 3.3 L Chloride 101 Carbon Dioxide 29 BUN 23 Creatinine 1.05 Glucose 126 H Calcium 8.4 L Medications Administered Current Inpatient Medications Acetaminophen (Acetaminophen 500 Mg Tab) 500 mg PO Q6H PRN PRN Reason: fever/pain Stop: 08/08/23 03:00 Last Admin: 07/12/23 20:09 Dose: 500 mg Buspirone HCl (Buspirone 7.5 Mg Tab) 7.5 mg PO BID [facility] Stop: 08/08/23 08:59 Last Admin: 07/14/23 08:18 Dose: 7.5 mg Dextrose (Dextrose 50% 50 Ml Syringe) 25 - 50 ml IV UD PRN; Protocol PRN Reason: Hypoglycemia Protocol Stop: 08/08/23 05:22 Doxycycline Hyclate (Doxycycline Hyclate 50 Mg Cap) 50 mg PO BID [facility] Stop: 08/08/23 08:59 Last Admin: 07/14/23 08:18 Dose: 50 mg Furosemide (Furosemide 40 Mg/4 Ml Vial) 40 mg IV [id number] [facility] Stop: 08/10/23 10:59 Last Admin: 07/14/23 08:19 Dose: 40 mg Glucagon (Glucagon For Inj 1 Mg Vial) 1 mg SQ UD PRN; Protocol PRN Reason: Hypoglycemia Protocol Stop: 08/08/23 05:22 Glucose (Glucose 10 Tab/Tube) 4 - 8 tab PO UD PRN; Protocol PRN Reason: Hypoglycemia Treatment Stop: 08/08/23 05:22 Glucose (Glucose 40% Gel 15 Gm Tube) 15 - 30 gm PO UD PRN; Protocol PRN Reason: Hypoglycemia Protocol Stop: 08/08/23 05:22 Promethazine HCl 12.5 mg/ (Sodium Chloride) 50.5 mls @ 202 mls/hr IV Q6H PRN PRN Reason: Nausea And Vomiting Stop: 08/08/23 03:00 Last Infusion: 07/13/23 09:16 Dose: Infused Cefepime HCl 2,000 mg/ Syringe 20 mls @ 5 mls/min IV Q8H [facility]; Protocol Stop: 07/19/23 07:59 Last Admin: 07/14/23 08:33 Dose: 5 mls/min Insulin Aspart (Insulin Aspart Per Unit Charge) 0 units SC ACHS [facility] Stop: 08/08/23 05:22 Last Admin: 07/14/23 09:47 Dose: 2 units Insulin Glargine (Lantus Per Unit Charge) 10 units SQ BID [facility] Stop: 08/08/23 19:29 Last Admin: 07/14/23 08:31 Dose: 10 units Loperamide HCl (Loperamide Hcl 2 Mg Cap) 2 mg PO Q3H PRN PRN Reason: diarrhea Stop: 08/09/23 11:18 Last Admin: 07/10/23 17:56 Dose: 2 mg Miscellaneous (Carbohydrates For Hypoglycemia ) 15 - 30 gm PO UD PRN PRN Reason: Hypoglycemia Protocol Stop: 08/08/23 05:22 Tramadol HCl (Tramadol Hcl 50 Mg Tablet) 25 - 50 mg PO Q4H PRN PRN Reason: Pain Stop: 08/08/23 03:00
[2023-07-14] MEDS: FUROSEMIDE 40 MG TAB PO SCH (17:45)
[2023-07-14] MEDS ORDERED: CEFDINIR 300 MG CAP PO SCH (21:00)
[2023-07-14] MEDS ORDERED: POTASSIUM CHLORIDE CRTAB 20 MEQ TABCR PO SCH (21:00)
--- NOTE | 2023-07-15 07:38 | Discharge Summary ---
Date of Service July 12, 2023 Admission HPI Per Admitting Provider History obtained from patient, family, and records. Medical history significant for hypertension, hyperlipidemia, chronic lymphedema, JUAN, DM 2 insulin requiring, NAFLD cirrhosis, chronic anemia (baseline hemoglobin 10-11), chronic thrombocytopenia, rosacea on doxycycline Monthly confinements since May 2023. Last confinement June 26 to 2023 for norovirus gastroenteritis. Patient seen at new PCPs office 3 weeks ago for recurrent right leg cellulitis with foul drainage. No improvement despite doxycycline course and outpatient podiatry eval. Patient woke up not feeling well yesterday morning. Achy abdominal pain with nausea, vomiting, watery diarrhea. No chest pain, no SOB. No cough symptoms. Achy headache symptoms. Patient thinks she was passing out from lightheadedness. No witnessed seizures. Foul-smelling urine noted by EMS upon arrival at patient's home. IV cefepime administered at the ER. MEDICAL HISTORY: As above. SURGERIES: She has had gynecologic procedures, cholecystectomy, cataract surgeries FAMILY HISTORY: Hypertension, cirrhosis secondary to fatty liver disease, throat cancer, Parkinson's disease PERSONAL SOCIAL HISTORY: Nonsmoker, no chronic intake of alcoholic beverages, disabled. Admission Exam Per Admitting Provider Physical Exam: GENERAL: Slightly uncomfortable, morbidly obese, ill-appearing, no respiratory distress SKIN: Normal color, warm HEENT: [place] palpebral conjunctivae, no ptosis, dry buccal mucosa NECK : Supple, short neck, no tenderness CHEST : Decreased breath sounds, no tenderness HEART : Tachycardic, no obvious murmurs ABDOMEN: distention, nontender EXTREMITIES : Bilateral LE swelling, RLE induration with minimal tenderness, no other conspicuous deformities noted NEUROLOGIC : Coherent, no facial asymmetry, gait and stance not assessed Principal Diagnosis Sepsis secondary to right lower leg cellulitis, fluid overload secondary to cirrhosis of liver, hypertension Discharge Exam Lying in bed comfortably Constitutional well developed, well nourished, + ill appearing and + obese Eyes PERRL, conjunctivae normal, anicteric sclerae ENMT external ear and nose normal, oropharynx normal Neck trachea midline, no thyromegaly Respiratory no respiratory distress Auscultation: + diminished lung sounds and + crackles (Minimal bibasilar crackles) Cardiovascular Rate/Rhythm: regular rate, regular rhythm and + bradycardic Heart Sounds: normal S1 and normal S2; no murmur Extremities: + edema (More on the right with lymphedema and chronic skin changes) Gastrointestinal (Abdomen) Inspection/Auscultation: normal bowel sounds; abdomen not distended Percussion/Palpation: + abdomen tender (Minimally tender all over without any guarding and rigidity) and abdomen soft Neurologic normal touch/pain/proprioception and moves all extremities; no focal motor defic its Lymphatic no cervical or axillary lymphadenopathy Discharge Data Allergies Allergy/AdvReac Type Severity Reaction Status Date / Time Sulfa (Sulfonamide Allergy Intermediate SWELLING, Verified 06/25/23 13:16 Antibiotics) HIVES empagliflozin AdvReac Severe Vaginal Verified 06/25/23 13:16 [From Jardiance] irritation Consultations 07/09/23 02:07 ED Decision to Admit Stat Ordered Studies 07/09/23 02:52 CT Abd and Pelvis [CT abd pelvis IV con only] Stat CT head/brain wo con Stat CT leg [CT tib/fib RT w con] Stat 07/09/23 07:18 US venous duplex leg [US venous doppler LE RT] Urgent Hospital Course (1) Severe sepsis: SIRS plus lactic acidosis Possible sources-right lower leg cellulitis without any osteomyelitis or abscess Lactic acid was very high at presentation but that has been normalized Urine culture came back negative for any infection C. difficile toxin has been negative Will give Imodium as needed MRSA scan has been negative-will discontinue daptomycin Continue with intravenous cefepime to cover Pseudomonas PT OT eval once medically stable Clinically not much improved Diarrhea is improved Clinically much better today and will continue current antibiotic Right leg cellulitis has improved a lot-no open wounds Will continue IV antibiotic with cefepime for now and give oral on discharge to finish the course of 10 days in total Right lower extremity is much better-minimal chronic redness persist but no evidence of spreading cellulitis or abscess or wound She will be given oral cefdinir and will be discharged home this afternoon Fluid overload Secondary to cirrhosis without any overt decompensation Has more swelling of the legs and feels short of breath Chest x-ray shows bibasilar changes likely secondary to fluid Will start Lasix 40 mg twice daily and monitor PRP Still has +738 2 mL of fluid balance Advised to drink up to 1.5 L in 24 hours not more than that and will continue intravenous Lasix Will supplement electrolytes PT and OT evaluation for discharge planning Will need regular furosemide doses and potassium supplement on discharge Strongly advised to make an appointment with document specialist as an outpatient Hypertension, BP on the lower side Syncope possibly from orthostasis given borderline BP Hold home BP meds for now given borderline BP. Check orthostatic vitals Blood pressure is on the lower side at 102/64 Will monitor Hyperlipidemia, on statin Rx DM 2 insulin requiring, well-controlled as of recent hemoglobin A1c of 6 last month Basal bolus insulin adjusted for n.p.o. status for now until CT results known, ISS BG goal 1 10-1 40, carb count coverage, Blood sugar seems to be reasonably controlled hx NAFLD cirrhosis no overt decompensation CT abdomen pelvis showed hepatosplenomegaly without any ascites She has to reschedule her GI appointment Chronic anemia, hemoglobin at baseline Chronic thrombocytopenia secondary to liver disease Possible deconditioning given recurrent admissions DVT prophylaxis with SCDs given thrombocytopenia if no LE DVT on venous ultrasound LE venous Dopplers rule out DVT Full code Patient's sons requesting updates providers. Mr. Esvin Lewis, contact #[phone]. Mr. Merrick Lewis, contact #[phone]. Discussed with the son in the room with the patient Will be discharged home this afternoon Text document was generated using [employer] voice recognition software. It may contain grammatical or spelling errors. Kindly contact undersigned for clarification of any documentation item in question. Total Time Total Time Spent Total Time Spent (In Minutes): 40 minutes Discharge Plan Discharge Items Patient Disposition: Home - Self-Care Reason For Visit: SEPSIS Discharge Diagnosis: Sepsis secondary to right lower leg cellulitis, fluid overload secondary to cirrhosis of liver, hypertension Condition on Discharge: Good Activity: Resume your previous activity Non-emergency contact: Primary Care Provider Call non-emergency contact if: you have any medication questions and your symptoms worsen Follow-up/Referrals: Dr Jenaro Rollins [Other] (Date & Time 07/21/2023 8:20 AM Provider Jenaro Rollins MD Department Family Medicine [facility] ) Diet: Carb Consistent or DM2, Heart Healthy and Lactose Intolerant Fluids: 1800ml (7 cups) Addtl Attending Provider Instructions: Please take precautions to avoid falls Finish the course of antibiotic Take your medications as advised You will need to have a follow-up with your GI specialist for your cirrhosis Please keep follow-up appointments with the healthcare provider Pending Studies at Discharge: No Stand-Alone Forms: My [facility], Smoking Cessation Medications and DC Order Prescriptions: New furosemide 40 mg Tablet 40 mg PO [id number] Qty: 60 0RF potassium chloride 20 mEq Tablet,Er Particles/Crystals 20 meq PO BID Qty: 60 0RF cefdinir 300 mg Capsule 300 mg PO BID Qty: 10 0RF Continued pravastatin 40 mg tablet 40 mg PO HS ramipril 5 mg capsule 5 mg PO QAM insulin glargine [Basaglar KwikPen U-100 Insulin] 100 unit/mL (3 mL) insulin pen 40 unit subcut BID Qty: 15 0RF Rx Instructions: 40u AM 40u PM triamcinolone acetonide 0.1 % cream 1 applic TOPICAL DAILY PRN (Reason: Rash) Rx Instructions: on right wrist/forearm metformin 500 mg tablet extended release 24 hr 1,000 mg PO DAILY Patient Comments: QAM doxycycline hyclate 50 mg capsule 0 mg PO BID Rx Instructions: Per patient: "I take the 50mg twice daily for my rosacea on my face, I take 100mg twice daily for my wound care. I only have 2 days left of the 50mg as of 06/25/23. However, since I am on both strengths. I have been taking 150mg by mouth twice daily since 06/20/23. I should be complete with the 100mg by 06/30/23. tacrolimus 0.1 % ointment 1 applic TOPICAL BID Rx Instructions: uses for back of legs and palms clobetasol 0.05 % ointment 1 applic TOPICAL BID PRN (Reason: Rash) Rx Instructions: rash on back buspirone 7.5 mg Tablet 7.5 mg PO BID Qty: 60 0RF Discharge Orders: Discharge Order (Routine); Ordered 07/14/23 Ordered By: Michael Hoffman Admission Data Admit Date/Time: 07/09/23 02:59 Attending Provider: Michael Hoffman Admit Provider: Herman Avila Primary Care Provider: PCP,NO Other Providers: Herman Avila; William Pride Kelly Other Interventions: Discharge Summary Assessment (RN) Last Done: 07/14/23 17:31
== END 2023-07-14 21:33 | disposition home or self-care (01) | DRG 872 ==
LOC: ED 22:21 → EDINP 07-09 02:59 → SUATTDRO 07-09 02:59 → EDINP 07-09 21:00 → 2N 07-09 21:42
DX: Z79.84 Long term (current) use of oral hypoglycemic drugs; Z68.42 Body mass index [BMI] 45.0-49.9, adult; E11.9 Type 2 diabetes mellitus without complications; K76.0 Fatty (change of) liver, not elsewhere classified; R15.9 Full incontinence of feces; D69.59 Other secondary thrombocytopenia; R65.20 Severe sepsis without septic shock; I45.10 Unspecified right bundle-branch block; L03.115 Cellulitis of right lower limb; R32 Unspecified urinary incontinence; I10 Essential (primary) hypertension; K74.60 Unspecified cirrhosis of liver; A41.9 Sepsis, unspecified organism; E66.01 Morbid (severe) obesity due to excess calories; D64.9 Anemia, unspecified; N39.0 Urinary tract infection, site not specified; E87.20 Acidosis, unspecified; Z88.2 Allergy status to sulfonamides

== ENCOUNTER 2023-08-07 18:49 | Inpatient (IN) ==
[2023-08-07] MEDS: SODIUM CHLORIDE 0.9% 1,000 ML IV ONE ×3 (19:21→22:27)
[2023-08-07 19:30] LABS: Hematocrit (blood only) 31.6 % (37.0-47.0); Hemoglobin 10.8 g/dl (12.0-16.0); Mean Corpuscular Hemoglobin 32.1 pg (25.0-34.0); Mean Corpuscular Hgb Conc 34.2 g/dL (32.0-36.0); Mean Platelet Volume 9.6 fL (9.4-12.4); Platelet Count 72 K/uL (130-400); RDW Coefficient of Variation 15.1 % (11.5-14.5); RDW Standard Deviation 51.9 fL (36.4-46.3); Red Blood Count 3.36 M/uL (4.20-5.40); White Blood Count 17.86 K/ul (4.8-10.8)
[2023-08-07 19:38] LABS: INR 1.4 (0.9-1.1); Prothrombin Time 14.5 Seconds (9.0-12.0)
--- NOTE | 2023-08-07 19:40 | Emergency Department Note ---
Impression & Plan Sepsis, Cellulitis of right leg, Hypomagnesemia, Cirrhosis, Lymphedema, SATHYA (acute kidney injury) ED Provider Note NAME: KOSTAS CHAND AGE: 62 SEX: F : 1960 ARRIVES VIA: Walk-In INFORMANT: Patient ED PROVIDER(S): Bertrand Shaw MD CHIEF COMPLAINT: Fever, abdominal pain, n/v/d. PLAN: Disposition: Home MEDICAL DECISION MAKING: The patient is a pleasant 62-year-old woman with a past medical history of [place] cirrhosis, hypertension, hyperlipidemia, right lower extremity cellulitis who presents to the emergency department for evaluation of ongoing fevers, body aches, nausea, vomiting, diarrhea that began yesterday in the setting of being admitted to this facility a month ago for similar symptoms treated for sepsis related to cellulitis of the right lower leg. She reports doing well for several weeks until onset of symptoms yesterday. On evaluation the patient is acute on chronic ill-appearing but no acute distress, afebrile with heart in the 100s and otherwise stable vital signs. She appears diaphoretic and warm. Abdomen is nontender. She has 3+ pitting edema of the right lower leg with erythema warmth and tenderness which the patient understands report is chronic and unchanged both before and after her recent admission. They report it is "cellulitis" but denied being on antibiotics. EKG without overt acute ischemia. CXR negative for acute cardiopulmonary process per my personal preliminary review/interpretation. WBC 17.8 K with neutrophil predominance and left shift. H/H similar to prior. Platelets 72 K, similar to prior. Chemistry without metabolic acidosis. Creatinine 1.47, slightly increased from recent consistent with SATHYA. Initial lactic acid 4.5 with repeat improving to 3.3 following 1 L of normal saline with IV fluid hydration administered cautiously given cirrhosis and recent history of volume overload second liter of normal saline also administered due to concern for sepsis with caution with total of 2 L administered and 30 cc/kg deferred given cirrhosis and hypervolemia history. LFTs similar to prior in setting of cirrhosis. Magnesium 1.3 with IV repletion provided. Lipase not elevated. Procalcitonin is elevated at 36.7. UA without convincing evidence of infection. Respiratory viral panel/[employer] was negative. CT of the head was negative for acute or maladies. CT of the abdomen pelvis demonstrates evidence of cirrhosis similar to prior with question of bladder wall thickening though UA not suggestive of infection at this time. CT of the right lower extremity again repeated given the patient's presentation and demonstrates evidence of cellulitis extending to the lateral malleolus though no bony erosions to suggest osteomyelitis at this time. Patient was treated empirically with IV Zosyn and daptomycin. Patient and agree with plan for admission for further management. [facility] the [facility] for [facility]. Further management per admitting team. Triage Nursing notes reviewed and agree them. Prior/external medical records reviewed Vital Signs: reviewed Differential diagnosis: Sepsis, UTI, pneumonia, metabolic, electrolyte abnormalities, cardiac sources, intracerebral event, toxicologic, neurologic, as well as other pathologies. ER treatment provided: See below. Diagnostics interpreted by me: ECG: Normal sinus rhythm, 96 bpm, no ectopy, no overt ST elevation or depression, QTc 545, qrs 136. Cardiac Monitoring: An order for continuous cardiac monitoring was placed and demonstrated Normal sinus rhythm, 96 bpm, no ectopy. Laboratory studies: See below Imaging studies: See below Consultation(s): [facility] the patient for [facility]. HPI: The patient is a pleasant 62-year-old woman with a past medical history of [place] cirrhosis, hypertension, hyperlipidemia, right lower extremity cellulitis who presents to the emergency department for evaluation of ongoing fevers, body aches, nausea, vomiting, diarrhea that began yesterday in the setting of being admitted to this facility a month ago for similar symptoms treated for sepsis related to cellulitis of the right lower leg. She reports doing well for several weeks until onset of symptoms yesterday. ROS: See above HPI for pertinent positives & negatives. A total of 10 systems reviewed and were otherwise negative. VITALS:See Below PHYSICAL EXAMINATION: GENERAL: Awake, alert, acute on chronically ill-appearing, in no distress, BMI 44.9 HENT: Normocephalic, atraumatic. Oropharynx with dry mucous membranes and otherwise unremarkable. EYES: Normal conjunctiva. Sclera non-icteric. NECK: Supple. No nuchal rigidity. FROM. No JVD. RESPIRATORY: Clear to auscultation. CARDIAC: Tachycardic rate, normal rhythm. Extremities warm and well perfused. Pulses equal. ABDOMEN: Soft, non-distended. No tenderness to palpation. No rebound or guarding. No masses. MUSCULOSKELETAL: Chest examination reveals no tenderness. The back is symmetrical on inspection without obvious abnormality. There is no CVA tenderness to palpation. No joint edema. LOWER EXTREMITIES: 3+ pitting edema of the right lower leg with erythema warmth and tenderness. Left lower extremity without edema or discoloration. NEURO: Normal sensorium. No sensory or motor deficits noted. SKIN: No rash or jaundice noted. ED COURSE: Critical Care: I have personally spent greater than 45 minutes of critical care time in the direct management of this patient. This includes bedside care, interpretation of diagnostic studies, and testing, discussion with consultants, patient, and family members, and other required patient management activities. This 45 minutes is in excess of all separately billable procedures. Bertrand Shaw MD Past Med/Surg History Medical History Nausea, vomiting and diarrhea Hyperlipidemia Lymphedema Sleep apnea Rosacea Morbid obesity Cirrhosis Peripheral neuropathy Spleen enlargement Chronic kidney disease STAGE 2 History of asthma Thrombocytopenia HTN (hypertension) DM type 2 (diabetes mellitus, type 2) Surgical History History of tooth extraction History of cataract surgery RT/LEFT H/O dilation and curettage History of hysteroscopy S/P cholecystectomy Family History Sister Cervical cancer Mother Liver disease Other No family history of adverse response to anesthesia Social History Smoking Status: Unknown if ever smoked Second Hand Exposure: No; Do You Dip or Chew Tobacco: No; Tobacco Cessation Education Requested by Patient: No Hx Alcohol Use: No Hx Substance Use: No Preferred Language: Mohawk Communication Ability: Effective Visual Impairment: No Limitations Hearing Ability: Normal Supply Chain Generalist Required: No Beliefs That Will Affect Care: None Current Living Situation: Alone Other Information That Helps Us Care for You: No Feels Safe at Home: Yes Safety Concerns: Feels Safe At This Time Assistive Devices: Cane and Walker Allergies Allergies Allergy/AdvReac Type Severity Reaction Status Date / Time Sulfa (Sulfonamide Allergy Intermediate SWELLING, Verified 08/07/23 20:05 Antibiotics) HIVES empagliflozin AdvReac Severe Vaginal Verified 08/07/23 20:05 [From [facility]] irritation Home Meds Home Medications Medication Instructions Recorded Confirmed pravastatin 40 mg tablet 40 mg PO HS 05/26/18 08/07/23 ramipril 5 mg capsule 5 mg PO QAM 04/20/20 08/07/23 triamcinolone acetonide 0.1 % 1 applic topical DAILY PRN Rash 05/01/22 08/07/23 topical cream metformin 500 mg tablet,extended 1,000 mg PO DAILY 05/14/22 08/07/23 release 24 hr clobetasol 0.05 % topical ointment 1 applic topical BID PRN Rash 06/25/23 08/07/23 doxycycline hyclate 50 mg capsule 0 mg PO BID Rosacea 06/25/23 08/07/23 tacrolimus 0.1 % topical ointment 1 applic topical BID 06/25/23 08/07/23 furosemide 40 mg tablet 40 mg PO BID 08/07/23 08/07/23 Previous Rx's Medication Instructions Recorded insulin glargine 100 unit/mL (3 40 unit (0.4 mL) subcut BID #15 mL 04/25/20 mL) subcutaneous pen (Basaglar KwikPen U-100 Insulin) buspirone 7.5 mg tablet 7.5 mg PO BID #60 tabs 06/30/23 cefdinir 300 mg capsule 300 mg PO BID #10 caps 07/14/23 potassium chloride 20 mEq 20 meq PO BID #60 tabs 07/14/23 tablet,extended release(part/cryst) Results & Data (ED) Vital Signs Vital Signs - 24 hr 08/07/23 18:50 08/07/23 18:58 08/07/23 19:01 Temperature 36.9 C Temperature Source Temporal Artery Scan Pulse Rate 101 H 92 H 97 H Pulse Rate from SpO2 Sensor Pulse Rhythm Regular Pulse Strength Normal Respiratory Rate 24 16 Respiratory Effort / Characteristics Non-Labored Spontaneous Respiratory Depth Normal Respiratory Pattern Regular Blood Pressure 136/64 Blood Pressure [Right Arm] Blood Pressure Mean 88 Blood Pressure Mean [Right Arm] Blood Pressure Position Sitting Pulse Oximetry 99 97 Oxygen Delivery Method Room Air Room Air Sepsis Recent Fever Within 48 Hours Yes Sepsis New/Unexplained Change in Mental Status N/A Sepsis Action Taken by Nursing No Action Required 08/07/23 19:01 08/07/23 19:11 08/07/23 19:20 Temperature Temperature Source Pulse Rate 95 H 96 H 94 H Pulse Rate from SpO2 Sensor 96 H 97 H 95 H Pulse Rhythm Pulse Strength Respiratory Rate 24 28 H 20 Respiratory Effort / Characteristics Respiratory Depth Respiratory Pattern Blood Pressure Blood Pressure [Right Arm] Blood Pressure Mean Blood Pressure Mean [Right Arm] Blood Pressure Position Pulse Oximetry 97 96 96 Oxygen Delivery Method Sepsis Recent Fever Within 48 Hours Sepsis New/Unexplained Change in Mental Status Sepsis Action Taken by Nursing 08/07/23 19:31 08/07/23 19:40 08/07/23 19:51 Temperature Temperature Source Pulse Rate 93 H 94 H 90 Pulse Rate from SpO2 Sensor 92 H 94 H 92 H Pulse Rhythm Pulse Strength Respiratory Rate 25 H 19 18 Respiratory Effort / Characteristics Respiratory Depth Respiratory Pattern Blood Pressure Blood Pressure [Right Arm] Blood Pressure Mean Blood Pressure Mean [Right Arm] Blood Pressure Position Pulse Oximetry 95 97 100 Oxygen Delivery Method Sepsis Recent Fever Within 48 Hours Sepsis New/Unexplained Change in Mental Status Sepsis Action Taken by Nursing 08/07/23 20:22 08/07/23 20:31 08/07/23 20:50 Temperature Temperature Source Pulse Rate 91 H 95 H Pulse Rate from SpO2 Sensor 91 H 95 H Pulse Rhythm Pulse Strength Respiratory Rate 21 21 Respiratory Effort / Characteristics Respiratory Depth Respiratory Pattern Blood Pressure Blood Pressure [Right Arm] 119/83 Blood Pressure Mean Blood Pressure Mean [Right Arm] 95 Blood Pressure Position Pulse Oximetry 100 100 Oxygen Delivery Method Sepsis Recent Fever Within 48 Hours Sepsis New/Unexplained Change in Mental Status Sepsis Action Taken by Nursing 08/07/23 21:05 08/07/23 21:06 08/07/23 21:10 Temperature Temperature Source Pulse Rate 97 H 96 H Pulse Rate from SpO2 Sensor 98 H 97 H Pulse Rhythm Pulse Strength Respiratory Rate 24 27 H Respiratory Effort / Characteristics Respiratory Depth Respiratory Pattern Blood Pressure 119/53 L Blood Pressure [Right Arm] Blood Pressure Mean 76 Blood Pressure Mean [Right Arm] Blood Pressure Position Pulse Oximetry 93 93 Oxygen Delivery Method Sepsis Recent Fever Within 48 Hours Sepsis New/Unexplained Change in Mental Status Sepsis Action Taken by Nursing 08/07/23 21:21 08/07/23 21:30 08/07/23 21:30 Temperature Temperature Source Pulse Rate 95 H 96 H Pulse Rate from SpO2 Sensor 96 H 96 H Pulse Rhythm Pulse Strength Respiratory Rate 28 H 27 H Respiratory Effort / Characteristics Respiratory Depth Respiratory Pattern Blood Pressure 126/50 L Blood Pressure [Right Arm] Blood Pressure Mean 74 Blood Pressure Mean [Right Arm] Blood Pressure Position Pulse Oximetry 92 95 Oxygen Delivery Method Sepsis Recent Fever Within 48 Hours Sepsis New/Unexplained Change in Mental Status Sepsis Action Taken by Nursing 08/07/23 21:40 08/07/23 21:50 08/07/23 22:00 Temperature Temperature Source Pulse Rate 101 H 95 H Pulse Rate from SpO2 Sensor Pulse Rhythm Pulse Strength Respiratory Rate 29 H 25 H Respiratory Effort / Characteristics Respiratory Depth Respiratory Pattern Blood Pressure 129/68 Blood Pressure [Right Arm] Blood Pressure Mean 80 Blood Pressure Mean [Right Arm] Blood Pressure Position Pulse Oximetry Oxygen Delivery Method Sepsis Recent Fever Within 48 Hours Sepsis New/Unexplained Change in Mental Status Sepsis Action Taken by Nursing 08/07/23 22:00 08/07/23 22:10 08/07/23 22:26 Temperature Temperature Source Pulse Rate 95 H 93 H 95 H Pulse Rate from SpO2 Sensor 95 H Pulse Rhythm Pulse Strength Respiratory Rate 21 26 H 23 Respiratory Effort / Characteristics Respiratory Depth Respiratory Pattern Blood Pressure Blood Pressure [Right Arm] Blood Pressure Mean Blood Pressure Mean [Right Arm] Blood Pressure Position Pulse Oximetry 92 Oxygen Delivery Method Sepsis Recent Fever Within 48 Hours Sepsis New/Unexplained Change in Mental Status Sepsis Action Taken by Nursing 08/07/23 22:30 08/07/23 22:30 08/07/23 22:41 Temperature Temperature Source Pulse Rate 90 90 Pulse Rate from SpO2 Sensor 90 90 Pulse Rhythm Pulse Strength Respiratory Rate 21 26 H Respiratory Effort / Characteristics Respiratory Depth Respiratory Pattern Blood Pressure 126/65 Blood Pressure [Right Arm] Blood Pressure Mean 95 Blood Pressure Mean [Right Arm] Blood Pressure Position Pulse Oximetry 98 96 Oxygen Delivery Method Sepsis Recent Fever Within 48 Hours Sepsis New/Unexplained Change in Mental Status Sepsis Action Taken by Nursing 08/07/23 22:50 08/07/23 23:01 Temperature Temperature Source Pulse Rate 91 H 88 Pulse Rate from SpO2 Sensor 91 H 88 Pulse Rhythm Pulse Strength Respiratory Rate 26 H 22 Respiratory Effort / Characteristics Respiratory Depth Respiratory Pattern Blood Pressure Blood Pressure [Right Arm] Blood Pressure Mean Blood Pressure Mean [Right Arm] Blood Pressure Position Pulse Oximetry 95 96 Oxygen Delivery Method Sepsis Recent Fever Within 48 Hours Sepsis New/Unexplained Change in Mental Status Sepsis Action Taken by Nursing Laboratory Data Attestation: I reviewed the patient's lab results. 08/08/23 02:49 08/08/23 02:49 Lab Results 08/07/23 08/07/23 08/07/23 Range/Units 19:10 19:30 21:37 WBC 17.86 H (4.8-10.8) K/ul RBC 3.36 L (4.20-5.40) M/uL Hgb 10.8 L (12.0-16.0) g/dl Hct 31.6 L (37.0-47.0) % MCV 94.0 (80.0-100.0) fL MCH 32.1 (25.0-34.0) pg MCHC 34.2 (32.0-36.0) g/dL RDW Std Deviation 51.9 H (36.4-46.3) fL RDW Coeff of Melissa 15.1 H (11.5-14.5) % Plt Count 72 L (130-400) K/uL MPV 9.6 (9.4-12.4) fL Immature Gran % (Auto) 1.2 % Neut % (Auto) 93.8 % Lymph % (Auto) 2.9 % [place] % (Auto) 1.9 % Eos % (Auto) 0.1 % Baso % (Auto) 0.1 % Neut # (Auto) 16.75 H (1.40-6.50) K/uL Lymph # (Auto) 0.52 L (1.20-3.40) K/uL [place] # (Auto) 0.34 (0.11-0.59) K/uL Eos # (Auto) 0.01 (0.00-0.50) K/uL Baso # (Auto) 0.02 (0.00-0.20) K/uL Immature Gran # (Auto) 0.22 H (0.01-0.20) K/uL Toxic Vacuolation 1+ PT 14.5 H (9.0-12.0) Seconds INR 1.4 H (0.9-1.1) Sodium 134 L (136-145) mmol/L Potassium 3.9 (3.5-5.1) mmol/L Chloride 99 (98-107) mmol/L Carbon Dioxide 23 (21-32) mmol/L Anion Gap 12 H (3-11) BUN 26 H (6-23) mg/dl Creatinine 1.47 H (0.6-1.2) mg/dl Est Cr Clr Drug Dosing 52.5 ml/min Est GFR ( Amer) 43.3 ml/min Est GFR (Non-Af Amer) 37.3 ml/min BUN/Creatinine Ratio 17.7 (10-20) Glucose 278 H (70-99(Fasting)) mg/dl Lactate 4.5 H* 3.3 H* (0.4-2.0) mmol/L Calcium 8.8 (8.6-10.3) mg/dl Magnesium 1.3 L (1.7-2.4) mg/dl Total Bilirubin 2.5 H (0.2-1.0) mg/dl Direct Bilirubin 0.8 H (0-0.2) mg/dl AST 24 (13-39) U/L ALT 12 (7-52) U/L Alkaline Phosphatase 62 (34-104) U/L Total Protein 7.5 (6.0-8.3) gm/dl Albumin 2.9 L (3.4-5.0) gm/dl Globulin 4.6 H (2.5-4.0) gm/dl Albumin/Globulin Ratio 0.6 L (0.9-2) Lipase 4 L (11-82) U/L Procalcitonin 36.70 H (0-0.5) ng/ml Urine Color Urine Appearance (Clear) Urine pH (4.5-7.5) Ur Specific [place] (1.000-1.030) Urine Protein (Negative) Urine Glucose (UA) (Negative) Urine Ketones (Negative) Urine Blood (Negative) Urine Nitrite (Negative) Urine Bilirubin (Negative) Urine Urobilinogen (Negative) Ur Leukocyte Esterase (Negative) Urine WBC (Auto) (0-5) /hpf Urine RBC (Auto) (0-2) /hpf U Hyaline Cast (Auto) (0-2) /lpf U Epithel Cells (Auto) (0-2) /hpf Urine Bacteria (Auto) (None Seen) Adenovirus (PCR) Not Detected (NotDetected) B. pertussis DNA (PCR) Not Detected (NotDetected) B.parapertussis DNA PCR Not Detected (NotDetected) C. pneumoniae DNA (PCR) Not Detected (NotDetected) Coronavirus OC43 (PCR) Not Detected (NotDetected) Coronavirus HKU1 (PCR) Not Detected (NotDetected) Coronavirus 229E (PCR) Not Detected (NotDetected) SARS-CoV-2 (PCR) Not Detected (NotDetected) Coronavirus NL63 (PCR) Not Detected (NotDetected) Human Metapneumovir PCR Not Detected (NotDetected) Influenza Type A (PCR) Not Detected (NotDetected) Influenza Type B (PCR) Not Detected (NotDetected) M. pneumoniae (PCR) Not Detected (NotDetected) Parainfluenza 1 (PCR) Not Detected (NotDetected) Parainfluenza 2 (PCR) Not Detected (NotDetected) Parainfluenza 3 (PCR) Not Detected (NotDetected) Parainfluenza 4 (PCR) Not Detected (NotDetected) RSV (PCR) Not Detected (NotDetected) Entero/Rhino (PCR) Not Detected (NotDetected) 08/07/23 Range/Units 22:36 WBC (4.8-10.8) K/ul RBC (4.20-5.40) M/uL Hgb (12.0-16.0) g/dl Hct (37.0-47.0) % MCV (80.0-100.0) fL MCH (25.0-34.0) pg MCHC (32.0-36.0) g/dL RDW Std Deviation (36.4-46.3) fL RDW Coeff of Melissa (11.5-14.5) % Plt Count (130-400) K/uL MPV (9.4-12.4) fL Immature Gran % (Auto) % Neut % (Auto) % Lymph % (Auto) % [place] % (Auto) % Eos % (Auto) % Baso % (Auto) % Neut # (Auto) (1.40-6.50) K/uL Lymph # (Auto) (1.20-3.40) K/uL [place] # (Auto) (0.11-0.59) K/uL Eos # (Auto) (0.00-0.50) K/uL Baso # (Auto) (0.00-0.20) K/uL Immature Gran # (Auto) (0.01-0.20) K/uL Toxic Vacuolation PT (9.0-12.0) Seconds INR (0.9-1.1) Sodium (136-145) mmol/L Potassium (3.5-5.1) mmol/L Chloride (98-107) mmol/L Carbon Dioxide (21-32) mmol/L Anion Gap (3-11) BUN (6-23) mg/dl Creatinine (0.6-1.2) mg/dl Est Cr Clr Drug Dosing ml/min Est GFR ( Amer) ml/min Est GFR (Non-Af Amer) ml/min BUN/Creatinine Ratio (10-20) Glucose (70-99(Fasting)) mg/dl Lactate (0.4-2.0) mmol/L Calcium (8.6-10.3) mg/dl Magnesium (1.7-2.4) mg/dl Total Bilirubin (0.2-1.0) mg/dl Direct Bilirubin (0-0.2) mg/dl AST (13-39) U/L ALT (7-52) U/L Alkaline Phosphatase (34-104) U/L Total Protein (6.0-8.3) gm/dl Albumin (3.4-5.0) gm/dl Globulin (2.5-4.0) gm/dl Albumin/Globulin Ratio (0.9-2) Lipase (11-82) U/L Procalcitonin (0-0.5) ng/ml Urine Color Dark Yellow Urine Appearance Clear (Clear) Urine pH 5.0 (4.5-7.5) Ur Specific [place] 1.034 H (1.000-1.030) Urine Protein Negative (Negative) Urine Glucose (UA) Negative (Negative) Urine Ketones Trace H (Negative) Urine Blood 3+ H (Negative) Urine Nitrite Negative (Negative) Urine Bilirubin Negative (Negative) Urine Urobilinogen Negative (Negative) Ur Leukocyte Esterase Negative (Negative) Urine WBC (Auto) 0-5 (0-5) /hpf Urine RBC (Auto) 6-10 H (0-2) /hpf U Hyaline Cast (Auto) 0-2 (0-2) /lpf U Epithel Cells (Auto) 3-5 H (0-2) /hpf Urine Bacteria (Auto) None Seen (None Seen) Adenovirus (PCR) (NotDetected) B. pertussis DNA (PCR) (NotDetected) B.parapertussis DNA PCR (NotDetected) C. pneumoniae DNA (PCR) (NotDetected) Coronavirus OC43 (PCR) (NotDetected) Coronavirus HKU1 (PCR) (NotDetected) Coronavirus 229E (PCR) (NotDetected) SARS-CoV-2 (PCR) (NotDetected) Coronavirus NL63 (PCR) (NotDetected) Human Metapneumovir PCR (NotDetected) Influenza Type A (PCR) (NotDetected) Influenza Type B (PCR) (NotDetected) M. pneumoniae (PCR) (NotDetected) Parainfluenza 1 (PCR) (NotDetected) Parainfluenza 2 (PCR) (NotDetected) Parainfluenza 3 (PCR) (NotDetected) Parainfluenza 4 (PCR) (NotDetected) RSV (PCR) (NotDetected) Entero/Rhino (PCR) (NotDetected) Administered Medications Daptomycin 525 mg/ Syringe 10.5 mls @ 5.25 mls/min IV Q24H [facility]; Protocol Stop: 08/09/23 20:29 Last Admin: 08/07/23 21:06 Dose: 5.25 mls/min Documented By: KG Metronidazole (Flagyl) 500 mg in 100 mls @ 100 mls/hr IV Q8H [facility]; Protocol Stop: 08/18/23 00:00 Last Admin: 08/08/23 02:35 Dose: 100 mls/hr Documented By: FINA Insulin Aspart (Insulin Aspart Per Unit Charge) 0 units SC ACHS [facility] Stop: 09/06/23 23:38 Last Admin: 08/08/23 02:41 Dose: 6 units Documented By: FINA Co-signed By: NAN Insulin Glargine (Lantus Per Unit Charge) 20 units SQ BID [facility] Stop: 09/06/23 23:38 Last Admin: 08/08/23 02:41 Dose: 20 units Documented By: FINA Co-signed By: NAN Miscellaneous (Tacrolimus 0.1% Ointment - Order Awaiting Action) 1 each N/A QS [facility] Stop: 09/07/23 00:00 Last Admin: 08/08/23 03:40 Dose: Not Given Documented By: KG Discontinued Medications Gadobutrol (Gadobutrol 15ml Vial) 12 ml IV ONCE ONE Stop: 08/08/23 01:38 Last Admin: 08/08/23 01:37 Dose: 12 ml Documented By: VENUS Sodium Chloride (Nss) 1,000 mls @ 999 mls/hr IV .Q1H1M ONE Stop: 08/07/23 19:58 Last Infusion: 08/07/23 20:49 Dose: Infused Documented By: Admin: 08/07/23 19:21 Dose: 999 mls/hr Documented By: KG Acetaminophen 650 mg/ EMPTY (BAG) 65 mls @ 260 mls/hr IV NOW STA Stop: 08/07/23 19:39 Last Infusion: 08/07/23 20:49 Dose: Infused Documented By: Admin: 08/07/23 20:25 Dose: 260 mls/hr Documented By: KG Famotidine (Pepcid 20mg Iv Push) 20 mg in 5 mls @ 2.5 mls/min IV NOW STA Stop: 08/07/23 19:39 Last Admin: 08/07/23 20:03 Dose: 2.5 mls/min Documented By: KG Prochlorperazine (Compazine) 1 mls @ 1 mls/min IV ONE ONE Stop: 08/07/23 19:39 Last Admin: 08/07/23 20:04 Dose: 1 mls/min Documented By: KG Piperacillin Sod/Tazobactam Sod (Zosyn) 4.5 gm in 100 mls @ 200 mls/hr IV NOW ONE Stop: 08/07/23 20:49 Last Infusion: 08/07/23 22:56 Dose: Infused Documented By: Admin: 08/07/23 21:06 Dose: 200 mls/hr Documented By: KG Sodium Chloride (Nss) 1,000 mls @ 999 mls/hr IV .Q1H1M ONE Stop: 08/07/23 21:21 Last Infusion: 08/07/23 22:56 Dose: Infused Documented By: Admin: 08/07/23 20:32 Dose: 999 mls/hr Documented By: KG Magnesium Sulfate/Dextrose (Magnesium Sulfate / D5w) 1 gm in 100 mls @ 100 mls/hr IV Q1H [facility] Stop: 08/07/23 23:56 Last Admin: 08/08/23 02:17 Dose: 100 mls/hr Documented By: Infusion: 08/08/23 02:07 Dose: Infused Documented By: Admin: 08/07/23 22:26 Dose: 100 mls/hr Documented By: KG Sodium Chloride (Nss) 1,000 mls @ 999 mls/hr IV .Q1H1M ONE Stop: 08/07/23 22:57 Last Infusion: 08/08/23 02:51 Dose: Infused Documented By: Admin: 08/07/23 22:27 Dose: 999 mls/hr Documented By: KG Magnesium Sulfate/Dextrose (Magnesium Sulfate / D5w) 1 gm in 100 mls @ 50 mls/hr IV ONE ONE Stop: 08/08/23 00:04 Last Admin: 08/08/23 02:33 Dose: 50 mls/hr Documented By: FINA Albumin Human (Albumin 25%) 25 gm in 100 mls @ 50 mls/hr IV ONE ONE Stop: 08/08/23 01:00 Last Admin: 08/08/23 02:39 Dose: 50 mls/hr Documented By: FINA Ioversol (Optiray 320 100ml) 94 ml IV ONCE ONE Stop: 08/07/23 20:55 Last Admin: 08/07/23 20:54 Dose: 94 ml Documented By: APPLE Magnesium Sulfate/Dextrose (Magnesium Sulfate 1gm / D5w Bag) Confirm Administered Dose 1 gm IV .STK-MED ONE Stop: 08/08/23 02:30 Last Admin: 08/08/23 02:51 Dose: Not Given Documented By: FINA Imaging Data Radiologist's Impression: Abdomen/Pelvis CT 08/07/23 19:38 Exam(s): CT ABDOMEN + PELVIS With Contrast IV Amt: 94ml optiray 320 EXAM: CT Abdomen and Pelvis With Intravenous Contrast CLINICAL HISTORY: Sepsis. TECHNIQUE: Axial computed tomography images of the abdomen and pelvis with intravenous contrast. CTDI is 6.03 mGy and DLP is 309.33 mGy-cm. Automated exposure control was utilized for the study. A dose lowering technique was utilized adhering to the principles of ALARA. CONTRAST: Patient received 94ml optiray 320 of IV contrast COMPARISON: CT abdomen pelvis 07/09/2023. FINDINGS: Lung bases: Unremarkable. No mass. No consolidation. ABDOMEN: Liver: Cirrhosis. Gallbladder and bile ducts: Cholecystectomy. No ductal dilation. Pancreas: Unremarkable. No mass. No ductal dilation. Spleen: Splenomegaly. Adrenals: Unremarkable. No mass. Kidneys and ureters: Unremarkable. No solid mass. No hydronephrosis. Stomach and bowel: Unremarkable. No obstruction. No mucosal thickening. PELVIS: Appendix: No findings to suggest acute appendicitis. Bladder: Mild prominence of the wall. No mass. Reproductive: Unremarkable as visualized. ABDOMEN and PELVIS: Intraperitoneal space: Unremarkable. No free air. No significant fluid collection. Bones/joints: There are degenerative changes of the spine. No acute fracture. No dislocation. Soft tissues: Unremarkable. Vasculature: Mild atherosclerotic disease. Varices are noted. Mild atherosclerosis. No aneurysm. Lymph nodes: Unremarkable. No enlarged lymph nodes. IMPRESSION: 1. Cirrhosis. Sequelae of portal hypertension including splenomegaly and varices. 2. Mild prominence of the bladder wall could relate to cystitis. No hydronephrosis. Electronically signed by: Charlene Herndon MD 08/07/23 21:[address] 08/07/23 19:38 Exam(s): CT HEAD Without Contrast EXAM: CT Head Without Intravenous Contrast CLINICAL HISTORY: Headache. TECHNIQUE: Axial computed tomography images of the head/brain without intravenous contrast. CTDI is 38.69 mGy and DLP is 546.36 mGy-cm. Automated exposure control was utilized for the study. A dose lowering technique was utilized adhering to the principles of ALARA. COMPARISON: CT head 07/09/2023. FINDINGS: Brain: No intracranial hemorrhage, mass-effect or midline shift. No abnormal extra axial fluid. No evidence of acute infarct. Mild periventricular white matter hypodensities are most consistent with chronic microangiopathy. Ventricles: Unremarkable. No ventriculomegaly. Bones/joints: Unremarkable. No acute fracture. Soft tissues: Unremarkable. Sinuses: Unremarkable as visualized. No acute sinusitis. Mastoid air cells: Unremarkable as visualized. No mastoid effusion. IMPRESSION: No acute intracranial finding. Electronically signed by: Charlene Herndon MD 08/07/23 21:[address] 08/07/23 19:38 Exam(s): CT EXTREMITY RIGHT LOWER With Contrast IV Amt: OPTIRAY 320 94ML EXAM: CT Right Lower Extremity With Intravenous Contrast CLINICAL HISTORY: Sepsis. TECHNIQUE: Axial computed tomography images of the right lower extremity with intravenous contrast. CTDI is 28.14 mGy and DLP is 1471.68 mGy-cm. Automated exposure control was utilized for the study. A dose lowering technique was utilized adhering to the principles of ALARA. CONTRAST: Patient received OPTIRAY 320 94ML of IV contrast COMPARISON: No relevant prior studies available. FINDINGS: Bones/joints: This extends to the fibula, however there are no erosions to suggest osteomyelitis. No acute fracture. No dislocation. Soft tissues: There is marked thickening of the dermis of the calf with subcutaneous edema. No abscess. IMPRESSION: 1. There is marked thickening of the dermis of the calf with subcutaneous edema. No abscess. This is consistent with the patient's history of cellulitis. 2. The edema extends to the lateral malleolus, however there are no erosions to suggest osteomyelitis. Please note MRI is more sensitive in the detection of early osteomyelitis. Electronically signed by: Charlene Herndon MD 08/07/23 21:24 PM Chest X-Ray 08/07/23 19:41 XR chest 1V portable HISTORY: fever, sepsis COMPARISON: Chest 07/08/2023. FINDINGS: The heart remains enlarged. The lungs are clear. No evidence for pulmonary edema. No pleural effusions. No pneumothorax. No acute fractures. IMPRESSION: Stable cardiomegaly. ACT 112: Negative or not required by law. Electronically signed by: Gordon Beltran M.D. 08/07/2023 7:49 PM Discharge Plan Visit Data Chief Complaint: Abdominal Pain Stated Complaint: VOMITING, ABD PAIN AND CRAMPS ED Provider: [facility] Discharge Problem: Sepsis, Cellulitis of right leg, Hypomagnesemia, Cirrhosis, Lymphedema, SATHYA (acute kidney injury) Discharge Instructions Interventions: ED Discharge Assessment Last Done: 08/07/23 23:40 Discharge Problem: Sepsis Qualifiers: Sepsis type: sepsis due to unspecified organism Sepsis acute organ dysfunction status: with acute organ dysfunction Severe sepsis acute organ dysfunction type: acute renal failure Acute renal failure type: unspecified Severe sepsis shock status: without septic shock Qualified Code(s): A41.9 - Sepsis, unspecified organism Cirrhosis Qualifiers: Hepatic cirrhosis type: unspecified hepatic cirrhosis Ascites presence: u nspecified Qualified Code(s): K74.60 - Unspecified cirrhosis of liver
[2023-08-07 19:47] LABS: Albumin Globulin Ratio 0.6 (0.9-2); Albumin Level 2.9 gm/dl (3.4-5.0); BUN Creatinine Ratio 17.7 (10-20); Bilirubin Direct 0.8 mg/dl (0-0.2); Bilirubin,Total 2.5 mg/dl (0.2-1.0); Calcium 8.8 mg/dl (8.6-10.3); Creatinine Clr Calc Pharmacy 52.5 ml/min; Est GFR (African American) 43.3 ml/min; Est GFR (Non-African American) 37.3 ml/min; Globulin 4.6 gm/dl (2.5-4.0); Potassium 3.9 mmol/L (3.5-5.1); Total Protein 7.5 gm/dl (6.0-8.3)
[2023-08-07 19:49] LABS: Basophils # (auto) 0.02 K/uL (0.00-0.20); Basophils % (auto) 0.1 %; Eosinophils # (auto) 0.01 K/uL (0.00-0.50); Eosinophils % (auto) 0.1 %; Immature Granulocytes # (auto) 0.22 K/uL (0.01-0.20); Immature Granulocytes % (auto) 1.2 %; Lymphocytes # (auto) 0.52 K/uL (1.20-3.40); Lymphocytes % (auto) 2.9 %; Monocytes # (auto) 0.34 K/uL (0.11-0.59); Monocytes % (auto) 1.9 %; Neutrophils # (auto) 16.75 K/uL (1.40-6.50); Neutrophils % (auto) 93.8 %; Toxic Vacuolation 1+
--- NOTE | 2023-08-07 19:50 | XRay Report ---
XR chest 1V portable HISTORY: fever, sepsis COMPARISON: Chest 07/08/2023. FINDINGS: The heart remains enlarged. The lungs are clear. No evidence for pulmonary edema. No pleura l effusions. No pneumothorax. No acute fractures. IMPRESSION: Stable cardiomegaly. ACT 112: Negative or not required by law. Electronically signed by: Gordon Beltran M.D. 08/07/2023 7:49 PM
[2023-08-07 19:55] LABS: Magnesium 1.3 mg/dl (1.7-2.4)
[2023-08-07] MEDS: FAMOTIDINE 20MG IV PUSH 20 MG/5 ML SYR IV STA (20:03)
[2023-08-07] MEDS: PROCHLORPERAZINE 1 ML IV ONE (20:04)
[2023-08-07 20:25] LABS: Adenovirus PCR Not Detected (NotDetected); Bordetella parapertussis PCR Not Detected (NotDetected); Bordetella pertussis PCR Not Detected (NotDetected); Chlamydia pneumoniae PCR Not Detected (NotDetected); Coronavirus 229E PCR Not Detected (NotDetected); Coronavirus CoV-2 (COVID19)PCR Not Detected (NotDetected); Coronavirus HKU1 PCR Not Detected (NotDetected); Coronavirus NL63 PCR Not Detected (NotDetected); Coronavirus OC43PCR Not Detected (NotDetected); Human Metapneumovirus PCR Not Detected (NotDetected); Influenza A PCR Not Detected (NotDetected); Influenza B PCR Not Detected (NotDetected); Mycoplasma pneumoniae PCR Not Detected (NotDetected); Parainfluenza Virus 1 PCR Not Detected (NotDetected); Parainfluenza Virus 2 PCR Not Detected (NotDetected); Parainfluenza Virus 3 PCR Not Detected (NotDetected); Parainfluenza Virus 4 PCR Not Detected (NotDetected); Respiratory Syncytial VirusPCR Not Detected (NotDetected); Rhinovirus/Enterovirus PCR Not Detected (NotDetected)
[2023-08-07] MEDS: ACETAMINOPHEN 10MG/ML Custom 650 MG in EMPTY BAG 0 ML IV STA (20:25)
[2023-08-07] MEDS: OPTIRAY 320 100ml IV ONE (20:54)
[2023-08-07] MEDS: PIPERACILLIN/TAZOBACTAM 4.5 GM/100 ML BAG IV ONE (21:06)
[2023-08-07] MEDS: DAPTOmycin 525 MG in SYRINGE 0 ML IV SCH (21:06)
--- NOTE | 2023-08-07 21:17 | CT Scan Report ---
Exam(s): CT HEAD Without Contrast EXAM: CT Head Without Intravenous Contrast CLINICAL HISTORY: Headache. TECHNIQUE: Axial computed tomography images of the head/brain without intravenous contrast. CTDI is 38.69 mGy and DLP is 546.36 mGy-cm. Automated exposure control was utilized for the study. A dose lowering technique was utilized adhering to the principles of ALARA. COMPARISON: CT head 07/09/2023. FINDINGS: Brain: No intracranial hemorrhage, mass-effect or midline shift. No abnormal extra axial fluid. No evidence of acute infarct. Mild periventricular white matter hypodensities are most consistent with chronic microangiopathy. Ventricles: Unremarkable. No ventriculomegaly. Bones/joints: Unremarkable. No acute fracture. Soft tissues: Unremarkable. Sinuses: Unremarkable as visualized. No acute sinusitis. Mastoid air cells: Unremarkable as visualized. No mastoid effusion. IMPRESSION: No acute intracranial finding. Electronically signed by: Charlene Herndon MD 08/07/23 21:16 PM
--- NOTE | 2023-08-07 21:18 | CT Scan Report ---
Exam(s): CT ABDOMEN + PELVIS With Contrast IV Amt: 94ml optiray 320 EXAM: CT Abdomen and Pelvis With Intravenous Contrast CLINICAL HISTORY: Sepsis. TECHNIQUE: Axial computed tomography images of the abdomen and pelvis with intravenous contrast. CTDI is 6.03 mGy and DLP is 309.33 mGy-cm. Automated exposure control was utilized for the study. A dose lowering technique was utilized adhering to the principles of ALARA. CONTRAST: Patient received 94ml optiray 320 of IV contrast COMPARISON: CT abdomen pelvis 07/09/2023. FINDINGS: Lung bases: Unremarkable. No mass. No consolidation. ABDOMEN: Liver: Cirrhosis. Gallbladder and bile ducts: Cholecystectomy. No ductal dilation. Pancreas: Unremarkable. No mass. No ductal dilation. Spleen: Splenomegaly. Adrenals: Unremarkable. No mass. Kidneys and ureters: Unremarkable. No solid mass. No hydronephrosis. Stomach and bowel: Unremarkable. No obstruction. No mucosal thickening. PELVIS: Appendix: No findings to suggest acute appendicitis. Bladder: Mild prominence of the wall. No mass. Reproductive: Unremarkable as visualized. ABDOMEN and PELVIS: Intraperitoneal space: Unremarkable. No free air. No significant fluid collection. Bones/joints: There are degenerative changes of the spine. No acute fracture. No dislocation. Soft tissues: Unremarkable. Vasculature: Mild atherosclerotic disease. Varices are noted. Mild atherosclerosis. No aneurysm. Lymph nodes: Unremarkable. No enlarged lymph nodes. IMPRESSION: 1. Cirrhosis. Sequelae of portal hypertension including splenomegaly and varices. 2. Mild prominence of the bladder wall could relate to cystitis. No hydronephrosis. Electronically signed by: Charlene Herndon MD 08/07/23 21:17 PM
--- NOTE | 2023-08-07 21:25 | CT Scan Report ---
Exam(s): CT EXTREMITY RIGHT LOWER With Contrast IV Amt: OPTIRAY 320 94ML EXAM: CT Right Lower Extremity With Intravenous Contrast CLINICAL HISTORY: Sepsis. TECHNIQUE: Axial computed tomography images of the right lower extremity with intravenous contrast. CTDI is 28.14 mGy and DLP is 1471.68 mGy-cm. Automated exposure control was utilized for the study. A dose lowering technique was utilized adhering to the principles of ALARA. CONTRAST: Patient received OPTIRAY 320 94ML of IV contrast COMPARISON: No relevant prior studies available. FINDINGS: Bones/joints: This extends to the fibula, however there are no erosions to suggest osteomyelitis. No acute fracture. No dislocation. Soft tissues: There is marked thickening of the dermis of the calf with subcutaneous edema. No abscess. IMPRESSION: 1. There is marked thickening of the dermis of the calf with subcutaneous edema. No abscess. This is consistent with the patient's history of cellulitis. 2. The edema extends to the lateral malleolus, however there are no erosions to suggest osteomyelitis. Please note MRI is more sensitive in the detection of early osteomyelitis. Electronically signed by: Charlene Herndon MD 08/07/23 21:24 PM
[2023-08-07] MEDS: MAGNESIUM SULFATE / D5W 1 GM/100 ML BAG IV SCH (22:26)
[2023-08-07 22:58] LABS: Appearance Urine Clear (Clear); Bacteria Urine Automated None Seen (None Seen); Bilirubin Urine Negative (Negative); Blood Urine 3+ (Negative); Cast Urine Automated 0-2 /lpf (0-2); Color Urine Dark Yellow; Glucose Urine UA Negative (Negative); Ketones Urine Trace (Negative); Leukocyte Esterase Urine Negative (Negative); Nitrite Urine Negative (Negative); Protein Urine Negative (Negative); Specific Gravity Urine 1.034 (1.000-1.030); Urobilinogen Urine Negative (Negative); WBC Urine Automated 0-5 /hpf (0-5)
[2023-08-07] MEDS ORDERED: PROMETHAZINE HCL 12.5 MG in SODIUM CHLORIDE 0.9% 50 ML IV PRN (23:07)
--- NOTE | 2023-08-07 23:11 | History & Physical Report ---
Date of Service August 07, 2023 Assessment & Plan (1) Severe sepsis: Plan: SIRS plus ARF plus lactic acidosis Possible sources Complicated UTI Recurrent RLE cellulitis rule out abscess/osteomyelitis, history chronic lymphedema rule out DVT Diarrhea rule out C. difficile hypertension, stable Transient hypoxemia at the ER likely from untreated JUAN DM 2 insulin requiring, well-controlled as of recent hemoglobin A1c of 6 2 months ago hx NAFLD cirrhosis no overt decompensation chronic anemia, hemoglobin at baseline chronic thrombocytopenia secondary to liver disease recurrent admissions Medical telemetry CS, Daptomycin and Cefepime Stool C. difficile IV Flagyl for now for presumptive C. difficile given sepsis criteria, oral vancomycin if C. difficile positive Follow lactic acid response to IVF RLE MRI to definitively rule out osteomyelitis Hold GEOVANNY inhibitor and home diuretic until creatinine back to baseline LE venous Dopplers rule out DVT Basal bolus insulin, ISS BG goal 1 10-1 40, carb count coverage, PT OT eval once medically stable DVT prophylaxis with SCDs given thrombocytopenia if no LE DVT on venous ultrasound Full code Patient's sons requesting updates providers. Mr. Mcallister Joshua, contact #[phone]. Mr. Sin Joshua, contact #[phone]. Text document was generated using [employer] voice recognition software. It may contain grammatical or spelling errors. Kindly contact undersigned for clarification of any documentation item in question. History of Present Illness Chief Complaint: Fever, leg swelling, nausea vomiting diarrhea Primary Care Provider: Serene Lopez PA-C History obtained from patient, family, and records. Medical history significant for hypertension, hyperlipidemia, chronic lymphedema, JUAN not on CPAP, DM 2 insulin requiring, NAFLD cirrhosis, chronic anemia (baseline hemoglobin 10-11), chronic thrombocytopenia, rosacea on doxycycline Monthly confinements since May 2023. Recent confinement last month for sepsis secondary to RLE cellulitis and fluid overload. No growth on cultures. Patient discharged on cefdinir course. 2 days ago, patient noted worsening swelling of right leg again. No recent trauma. Achy abdominal pain with nausea, vomiting, watery diarrhea. No chest pain, no SOB. Daptomycin and cefepime administered at the ER. Transient hypoxemia witnessed by ED nurse when patient dozed off at the ER. MEDICAL HISTORY: As above. SURGERIES: She has had gynecologic procedures, cholecystectomy, cataract surgeries FAMILY HISTORY: Hypertension, cirrhosis secondary to fatty liver disease, throat cancer, Parkinson's disease PERSONAL SOCIAL HISTORY: Nonsmoker, no chronic intake of alcoholic beverages, disabled. Allergies Allergy/AdvReac Type Severity Reaction Status Date / Time Sulfa (Sulfonamide Allergy Intermediate SWELLING, Verified 08/07/23 20:05 Antibiotics) HIVES empagliflozin AdvReac Severe Vaginal Verified 08/07/23 20:05 [From Jardiance] irritation Home Medications Medication Instructions Recorded Confirmed Type pravastatin 40 mg tablet 40 mg PO HS 05/26/18 08/07/23 History ramipril 5 mg capsule 5 mg PO QAM 04/20/20 08/07/23 History insulin glargine 100 unit/mL (3 40 unit (0.4 mL) subcut BID #15 mL 04/25/20 08/07/23 Rx mL) subcutaneous pen (Basaglar KwikPen U-100 Insulin) triamcinolone acetonide 0.1 % 1 applic topical DAILY PRN Rash 05/01/22 08/07/23 History topical cream metformin 500 mg tablet,extended 1,000 mg PO DAILY 05/14/22 08/07/23 History release 24 hr clobetasol 0.05 % topical ointment 1 applic topical BID PRN Rash 06/25/23 08/07/23 History doxycycline hyclate 50 mg capsule 0 mg PO BID Rosacea 06/25/23 08/07/23 History tacrolimus 0.1 % topical ointment 1 applic topical BID 06/25/23 08/07/23 History buspirone 7.5 mg tablet 7.5 mg PO BID #60 tabs 06/30/23 08/07/23 Rx cefdinir 300 mg capsule 300 mg PO BID #10 caps 07/14/23 08/07/23 Rx potassium chloride 20 mEq 20 meq PO BID #60 tabs 07/14/23 08/07/23 Rx tablet,extended release(part/cryst) furosemide 40 mg tablet 40 mg PO BID 08/07/23 08/07/23 History Past Med/Surg History Medical History Hyperlipidemia Lymphedema Sleep apnea Rosacea Morbid obesity Cirrhosis Peripheral neuropathy Spleen enlargement Chronic kidney disease STAGE 2 History of asthma Thrombocytopenia HTN (hypertension) DM type 2 (diabetes mellitus, type 2) Surgical History (Updated 07/31/23 @ 00:09 by Manda Vizcarra) History of tooth extraction History of cataract surgery RT/LEFT H/O dilation and curettage History of hysteroscopy S/P cholecystectomy Family History (Updated 06/25/23 @ 14:11 by Alexia Chambers PA-C) Sister Cervical cancer Mother Liver disease Other No family history of adverse response to anesthesia Social History Smoking Status: Unknown if ever smoked Second Hand Exposure: No; Do You Dip or Chew Tobacco: No; Tobacco Cessation Education Requested by Patient: No Hx Alcohol Use: No Hx Substance Use: No Preferred Language: Haitian Communication Ability: Effective Visual Impairment: No Limitations Hearing Ability: Normal Take Out Waiter/Waitress Required: No Beliefs That Will Affect Care: None Current Living Situation: Alone Other Information That Helps Us Care for You: No Feels Safe at Home: Yes Safety Concerns: Feels Safe At This Time Assistive Devices: Cane and Walker Review of Systems Review of Systems: As per HPI, all other systems reviewed and negative Physical Exam Physical Exam: GENERAL: Comfortable, morbidly obese, no respiratory distress SKIN: Pallor, warm HEENT: Pale palpebral conjunctivae, no ptosis, dry buccal mucosa, nasal cannula in place NECK : Supple, short neck, no tenderness CHEST : Decreased breath sounds, no tenderness HEART : RRR, no obvious murmurs ABDOMEN: distention, nontender EXTREMITIES : Bilateral LE swelling, RLE induration with minimal tenderness, no other conspicuous deformities noted NEUROLOGIC : Coherent, no facial asymmetry, gait and stance not assessed Results & Data Results & Data Vital Signs (Past 12 Hours) Vital Signs Temp Pulse Resp BP BP Pulse Ox O2 Del Method 08/07/23 23:06 87 08/07/23 20:50 119/83 08/07/23 20:31 95 H 21 100 08/07/23 20:22 91 H 21 100 08/07/23 19:51 90 18 100 08/07/23 19:40 94 H 19 97 08/07/23 19:31 93 H 25 H 95 08/07/23 19:20 94 H 20 96 08/07/23 19:11 96 H 28 H 96 08/07/23 19:01 95 H 24 97 08/07/23 19:01 97 H 08/07/23 18:58 92 H 16 97 Room Air 08/07/23 18:50 36.9 C 101 H 24 136/64 99 Room Air Laboratory Results Laboratory Results WBC 17.86 K/ul (4.8-10.8) H 08/07/23 19:10 RBC 3.36 M/uL (4.20-5.40) L 08/07/23 19:10 Hgb 10.8 g/dl (12.0-16.0) L 08/07/23 19:10 Hct 31.6 % (37.0-47.0) L 08/07/23 19:10 MCV 94.0 fL (80.0-100.0) 08/07/23 19:10 MCH 32.1 pg (25.0-34.0) 08/07/23 19:10 MCHC 34.2 g/dL (32.0-36.0) 08/07/23 19:10 RDW Std Deviation 51.9 fL (36.4-46.3) H 08/07/23 19:10 RDW Coeff of Melissa 15.1 % (11.5-14.5) H 08/07/23 19:10 Plt Count 72 K/uL (130-400) L 08/07/23 19:10 MPV 9.6 fL (9.4-12.4) 08/07/23 19:10 Immature Gran % (Auto) 1.2 % 08/07/23 19:10 Neut % (Auto) 93.8 % 08/07/23 19:10 Lymph % (Auto) 2.9 % 08/07/23 19:10 Mclennan % (Auto) 1.9 % 08/07/23 19:10 Eos % (Auto) 0.1 % 08/07/23 19:10 Baso % (Auto) 0.1 % 08/07/23 19:10 Neut # (Auto) 16.75 K/uL (1.40-6.50) H 08/07/23 19:10 Lymph # (Auto) 0.52 K/uL (1.20-3.40) L 08/07/23 19:10 Mclennan # (Auto) 0.34 K/uL (0.11-0.59) 08/07/23 19:10 Eos # (Auto) 0.01 K/uL (0.00-0.50) 08/07/23 19:10 Baso # (Auto) 0.02 K/uL (0.00-0.20) 08/07/23 19:10 Immature Gran # (Auto) 0.22 K/uL (0.01-0.20) H 08/07/23 19:10 Toxic Vacuolation 1+ 08/07/23 19:10 PT 14.5 Seconds (9.0-12.0) H 08/07/23 19:10 INR 1.4 (0.9-1.1) H 08/07/23 19:10 Sodium 134 mmol/L (136-145) L 08/07/23 19:10 Potassium 3.9 mmol/L (3.5-5.1) 08/07/23 19:10 Chloride 99 mmol/L (98-107) 08/07/23 19:10 Carbon Dioxide 23 mmol/L (21-32) 08/07/23 19:10 Anion Gap 12 (3-11) H 08/07/23 19:10 BUN 26 mg/dl (6-23) H 08/07/23 19:10 Creatinine 1.47 mg/dl (0.6-1.2) H 08/07/23 19:10 Est Cr Clr Drug Dosing 52.5 ml/min 08/07/23 19:10 Est GFR ( Amer) 43.3 ml/min 08/07/23 19:10 Est GFR (Non-Af Amer) 37.3 ml/min 08/07/23 19:10 BUN/Creatinine Ratio 17.7 (10-20) 08/07/23 19:10 Glucose 278 mg/dl (70-99(Fasting)) H 08/07/23 19:10 Lactate 3.3 mmol/L (0.4-2.0) H* 08/07/23 21:37 Calcium 8.8 mg/dl (8.6-10.3) 08/07/23 19:10 Magnesium 1.3 mg/dl (1.7-2.4) L 08/07/23 19:10 Total Bilirubin 2.5 mg/dl (0.2-1.0) H 08/07/23 19:10 Direct Bilirubin 0.8 mg/dl (0-0.2) H 08/07/23 19:10 AST 24 U/L (13-39) 08/07/23 19:10 ALT 12 U/L (7-52) 08/07/23 19:10 Alkaline Phosphatase 62 U/L (34-104) 08/07/23 19:10 Total Protein 7.5 gm/dl (6.0-8.3) 08/07/23 19:10 Albumin 2.9 gm/dl (3.4-5.0) L 08/07/23 19:10 Globulin 4.6 gm/dl (2.5-4.0) H 08/07/23 19:10 Albumin/Globulin Ratio 0.6 (0.9-2) L 08/07/23 19:10 Lipase 4 U/L (11-82) L 08/07/23 19:10 Procalcitonin 36.70 ng/ml (0-0.5) H 08/07/23 19:10 Urine Color Dark Yellow 08/07/23 22:36 Urine Appearance Clear (Clear) 08/07/23 22:36 Urine pH 5.0 (4.5-7.5) 08/07/23 22:36 Ur Specific [place] 1.034 (1.000-1.030) H 08/07/23 22:36 Urine Protein Negative (Negative) 08/07/23 22:36 Urine Glucose (UA) Negative (Negative) 08/07/23 22:36 Urine Ketones Trace (Negative) H 08/07/23 22:36 Urine Blood 3+ (Negative) H 08/07/23 22:36 Urine Nitrite Negative (Negative) 08/07/23 22:36 Urine Bilirubin Negative (Negative) 08/07/23 22:36 Urine Urobilinogen Negative (Negative) 08/07/23 22:36 Ur Leukocyte Esterase Negative (Negative) 08/07/23 22:36 Urine WBC (Auto) 0-5 /hpf (0-5) 08/07/23 22:36 Urine RBC (Auto) 6-10 /hpf (0-2) H 08/07/23 22:36 U Hyaline Cast (Auto) 0-2 /lpf (0-2) 08/07/23 22:36 U Epithel Cells (Auto) 3-5 /hpf (0-2) H 08/07/23 22:36 Urine Bacteria (Auto) None Seen (None Seen) 08/07/23 22:36 Adenovirus (PCR) Not Detected (NotDetected) 08/07/23 19:10 B. pertussis DNA (PCR) Not Detected (NotDetected) 08/07/23 19:10 B.parapertussis DNA PCR Not Detected (NotDetected) 08/07/23 19:10 C. pneumoniae DNA (PCR) Not Detected (NotDetected) 08/07/23 19:10 Coronavirus OC43 (PCR) Not Detected (NotDetected) 08/07/23 19:10 Coronavirus HKU1 (PCR) Not Detected (NotDetected) 08/07/23 19:10 Coronavirus 229E (PCR) Not Detected (NotDetected) 08/07/23 19:10 SARS-CoV-2 (PCR) Not Detected (NotDetected) 08/07/23 19:10 Coronavirus NL63 (PCR) Not Detected (NotDetected) 08/07/23 19:10 Human Metapneumovir PCR Not Detected (NotDetected) 08/07/23 19:10 Influenza Type A (PCR) Not Detected (NotDetected) 08/07/23 19:10 Influenza Type B (PCR) Not Detected (NotDetected) 08/07/23 19:10 M. pneumoniae (PCR) Not Detected (NotDetected) 08/07/23 19:10 Parainfluenza 1 (PCR) Not Detected (NotDetected) 08/07/23 19:10 Parainfluenza 2 (PCR) Not Detected (NotDetected) 08/07/23 19:10 Parainfluenza 3 (PCR) Not Detected (NotDetected) 08/07/23 19:10 Parainfluenza 4 (PCR) Not Detected (NotDetected) 08/07/23 19:10 RSV (PCR) Not Detected (NotDetected) 08/07/23 19:10 Entero/Rhino (PCR) Not Detected (NotDetected) 08/07/23 19:10 Impressions Abdomen/Pelvis CT 08/07/23 19:38 Exam(s): CT ABDOMEN + PELVIS With Contrast IV Amt: 94ml optiray 320 EXAM: CT Abdomen and Pelvis With Intravenous Contrast CLINICAL HISTORY: Sepsis. TECHNIQUE: Axial computed tomography images of the abdomen and pelvis with intravenous contrast. CTDI is 6.03 mGy and DLP is 309.33 mGy-cm. Automated exposure control was utilized for the study. A dose lowering technique was utilized adhering to the principles of ALARA. CONTRAST: Patient received 94ml optiray 320 of IV contrast COMPARISON: CT abdomen pelvis 07/09/2023. FINDINGS: Lung bases: Unremarkable. No mass. No consolidation. ABDOMEN: Liver: Cirrhosis. Gallbladder and bile ducts: Cholecystectomy. No ductal dilation. Pancreas: Unremarkable. No mass. No ductal dilation. Spleen: Splenomegaly. Adrenals: Unremarkable. No mass. Kidneys and ureters: Unremarkable. No solid mass. No hydronephrosis. Stomach and bowel: Unremarkable. No obstruction. No mucosal thickening. PELVIS: Appendix: No findings to suggest acute appendicitis. Bladder: Mild prominence of the wall. No mass. Reproductive: Unremarkable as visualized. ABDOMEN and PELVIS: Intraperitoneal space: Unremarkable. No free air. No significant fluid collection. Bones/joints: There are degenerative changes of the spine. No acute fracture. No dislocation. Soft tissues: Unremarkable. Vasculature: Mild atherosclerotic disease. Varices are noted. Mild atherosclerosis. No aneurysm. Lymph nodes: Unremarkable. No enlarged lymph nodes. IMPRESSION: 1. Cirrhosis. Sequelae of portal hypertension including splenomegaly and varices. 2. Mild prominence of the bladder wall could relate to cystitis. No hydronephrosis. Electronically signed by: Charlene Herndon MD 08/07/23 21:[address] 08/07/23 19:38 Exam(s): CT HEAD Without Contrast EXAM: CT Head Without Intravenous Contrast CLINICAL HISTORY: Headache. TECHNIQUE: Axial computed tomography images of the head/brain without intravenous contrast. CTDI is 38.69 mGy and DLP is 546.36 mGy-cm. Automated exposure control was utilized for the study. A dose lowering technique was utilized adhering to the principles of ALARA. COMPARISON: CT head 07/09/2023. FINDINGS: Brain: No intracranial hemorrhage, mass-effect or midline shift. No abnormal extra axial fluid. No evidence of acute infarct. Mild periventricular white matter hypodensities are most consistent with chronic microangiopathy. Ventricles: Unremarkable. No ventriculomegaly. Bones/joints: Unremarkable. No acute fracture. Soft tissues: Unremarkable. Sinuses: Unremarkable as visualized. No acute sinusitis. Mastoid air cells: Unremarkable as visualized. No mastoid effusion. IMPRESSION: No acute intracranial finding. Electronically signed by: Charlene Herndon MD 08/07/23 21:[address] 08/07/23 19:38 Exam(s): CT EXTREMITY RIGHT LOWER With Contrast IV Amt: OPTIRAY 320 94ML EXAM: CT Right Lower Extremity With Intravenous Contrast CLINICAL HISTORY: Sepsis. TECHNIQUE: Axial computed tomography images of the right lower extremity with intravenous contrast. CTDI is 28.14 mGy and DLP is 1471.68 mGy-cm. Automated exposure control was utilized for the study. A dose lowering technique was utilized adhering to the principles of ALARA. CONTRAST: Patient received OPTIRAY 320 94ML of IV contrast COMPARISON: No relevant prior studies available. FINDINGS: Bones/joints: This extends to the fibula, however there are no erosions to suggest osteomyelitis. No acute fracture. No dislocation. Soft tissues: There is marked thickening of the dermis of the calf with subcutaneous edema. No abscess. IMPRESSION: 1. There is marked thickening of the dermis of the calf with subcutaneous edema. No abscess. This is consistent with the patient's history of cellulitis. 2. The edema extends to the lateral malleolus, however there are no erosions to suggest osteomyelitis. Please note MRI is more sensitive in the detection of early osteomyelitis. Electronically signed by: Charlene Herndon MD 08/07/23 21:24 PM Chest X-Ray 08/07/23 19:41 XR chest 1V portable HISTORY: fever, sepsis COMPARISON: Chest 07/08/2023. FINDINGS: The heart remains enlarged. The lungs are clear. No evidence for pulmonary edema. No pleural effusions. No pneumothorax. No acute fractures. IMPRESSION: Stable cardiomegaly. ACT 112: Negative or not required by law. Electronically signed by: Gordon Beltran M.D. 08/07/2023 7:49 PM Diagnostic Findings EKG as per my interpretation : Rate 95, NSR, RAD, RBBB, T wave abnormalities inferior leads Code Status & VTE Plan VTE Prophylaxis Plan VTE Prophylaxis will be ordered: Yes
[2023-08-07] MEDS ORDERED: CARBOHYDRATES FOR HYPOGLYCEMIA PO PRN (23:39)
[2023-08-07] MEDS ORDERED: GLUCOSE 10 TAB/TUBE PO PRN (23:39)
[2023-08-07] MEDS ORDERED: GLUCAGON FOR INJ 1 MG VIAL SQ PRN (23:39)
[2023-08-07] MEDS ORDERED: DEXTROSE 50% 50 ML SYRINGE IV PRN (23:39)
[2023-08-07] MEDS ORDERED: GLUCOSE 40% GEL 15 GM TUBE PO PRN (23:39)
--- NOTE | 2023-08-08 01:01 | Ultrasound Report ---
Exam(s): US VENOUS RIGHT LOWER EXTREMITY EXAM: US Duplex Right Lower Extremity Veins CLINICAL HISTORY: Swelling. TECHNIQUE: Real-time duplex ultrasound scan of the right lower extremity veins integrating B-mode two-dimensional vascular structure, Doppler spectral analysis, color flow Doppler imaging and compression. COMPARISON: No relevant prior studies available. FINDINGS: Deep veins: Unremarkable. No Deep vein thrombosis in the visualized common femoral, femoral, proximal deep femoral or popliteal veins. The veins demonstrate normal color flow, are normally compressible, with normal phasic flow and/or augmentation response. Superficial veins: Unremarkable. No thrombus in the visualized great saphenous vein. Soft tissues: No acute findings. No popliteal cyst. IMPRESSION: No deep vein thrombosis of the left lower extremity. Electronically signed by: Charlene Herndon MD 08/08/23 01:00 AM
[2023-08-08] MEDS: GADOBUTROL 15ML VIAL IV ONE (01:37)
--- NOTE | 2023-08-08 02:18 | Magnetic Resonance Report ---
Exam(s): MRI EXTREMITY W/WO Contrast IV Amt: 12cc gadavist EXAM: MR Right Lower Extremity Without and With Intravenous Contrast, Tibia and Fibula CLINICAL HISTORY: Osteomyelitis. TECHNIQUE: Multiplanar magnetic resonance images of the right tibia and fibula without and with intravenous contrast. CONTRAST: Patient received 12cc Gadavist of IV contrast COMPARISON: Radiographs from earlier today. FINDINGS: Bones/joints: No edema or enhancement to suggest osteomyelitis. No dislocation. No fracture. Soft tissues: Marked nonspecific subcutaneous edema without organized fluid collection. IMPRESSION: 1. No edema or enhancement to suggest osteo-myelitis. 2. Marked nonspecific subcutaneous edema without organized fluid collection. Electronically signed by: Charlene Herndon MD 08/08/23 02:16 AM
[2023-08-08] MEDS: MAGNESIUM SULFATE / D5W 1 GM/100 ML BAG IV ONE (02:33)
[2023-08-08] MEDS: metroNIDAZOLE 500 MG/100 ML BAG IV SCH (02:35)
[2023-08-08] MEDS: ALBUMIN 25% 25 GM/100 ML VIAL IV ONE (02:39)
[2023-08-08] MEDS: LANTUS PER UNIT CHARGE SQ SCH (02:41)
[2023-08-08] MEDS: INSULIN ASPART PER UNIT CHARGE SC SCH (02:41)
[2023-08-08] MEDS: MAGNESIUM SULFATE 1GM / D5W BAG IV ONE (02:51)
[2023-08-08 03:01] LABS: Hematocrit (blood only) 28.1 % (37.0-47.0); Hemoglobin 9.3 g/dl (12.0-16.0); Mean Corpuscular Hgb Conc 33.1 g/dL (32.0-36.0); Mean Corpuscular Volume 96.6 fL (80.0-100.0); Platelet Count 45 K/uL (130-400); RDW Coefficient of Variation 15.1 % (11.5-14.5); RDW Standard Deviation 53.3 fL (36.4-46.3); Red Blood Count 2.91 M/uL (4.20-5.40)
[2023-08-08 03:18] LABS: BUN Creatinine Ratio 21.6 (10-20); Creatinine Clr Calc Pharmacy 61.8 ml/min; Est GFR (African American) 52.6 ml/min; Est GFR (Non-African American) 45.4 ml/min; Magnesium 1.7 mg/dl (1.7-2.4); Potassium 3.9 mmol/L (3.5-5.1)
[2023-08-08 03:25] LABS: Basophils # (auto) 0.02 K/uL (0.00-0.20); Basophils % (auto) 0.2 %; Immature Granulocytes # (auto) 0.21 K/uL (0.01-0.20); Immature Granulocytes % (auto) 1.7 %; Lymphocytes # (auto) 0.58 K/uL (1.20-3.40); Lymphocytes % (auto) 4.8 %; Monocytes # (auto) 0.31 K/uL (0.11-0.59); Monocytes % (auto) 2.5 %; Neutrophils # (auto) 11.08 K/uL (1.40-6.50); Neutrophils % (auto) 90.8 %
[2023-08-08] MEDS: CEFEPIME 2,000 MG in SYRINGE 0 ML IV SCH (03:55)
[2023-08-08] MEDS: ALBUMIN 25% 25 GM/100 ML VIAL IV SCH (06:04)
[2023-08-08] MEDS: busPIRone 7.5 MG TAB PO SCH (08:44)
--- OUTSIDE RECORDS SUMMARY | 2023-08-08 08:52 | External Medical Summary | Summary of Care ---
Author Name Unknown Organization [facility] Address [address] [place] [address] Phone [phone] Care Team Providers Care Chief Green Officer Name Role Phone Serene Lopez PA-C Primary Care Provide r Encounter Details Date Type Department Care Team (Late st Contact Info) Description 07/14/2023 Result Scan Unspecified Department <No scans attached> Allergies Active Allergy Reactions Criticality Noted Date Comments Clindamycin 05/31/2017 Hives/ ER visit Glimepiride 05/03/2022 Empagliflozin 10/31/2018 Genital rash Sulfa Antibiotics Anaphylaxis 01/13/2007 documented as of this encounter (statuses as of 07/28/2023) Medications Medication Sig Dispensed Refills Start Date End Date Status OneTouch Ultra In Vitro Strip (Glucose Blood)Indications:Ty pe 2 diabetes mellitus with hemoglobin A1c goal of less than 7.0% ([facility]),Type 2 diabetes mellitus with stage 2 chronic kidney disease, without long-term current use of insulin ([facility]) Use to test blood sugar once a day 100 Strip 3 10/08/2020 Active Triamcinolone Acetonide 0.1 % External Ointment (Aristocort)Indicati ons:Plaque psoriasis Apply 2x daily to spots on R wrist/arms until resolved, then when flaring 454 g 1 08/16/2022 Active Tacrolimus 0.1 % External Ointment (Protopic)Indication s:Inverse psoriasis Apply topically to affected area 2 times a day. Apply thin layer to skin folds 2x daily with Desitin 40% cream (over the counter) over top 200 g 3 08/19/2022 Active BD Pen Needle Mini U/F 31G X 5 MM (Insulin Pen Needle)Indications:T ype 2 diabetes mellitus with hemoglobin A1c goal of less than 7.0% ([facility]),Type 2 diabetes mellitus with stage 2 chronic kidney disease, without long-term current use of insulin ([facility]) use with insulin twice daily 200 Each 3 09/13/2022 Active Clobetasol Propionate 0.05 % External Ointment (Temovate)Indication s:Plaque psoriasis apply to thickened areas on back 2 times daily until resolved, then when flaring. 60 g 0 11/15/2022 Active documented as of this encounter (statuses as of 07/28/2023) Active Problems Problem Noted Date Diagnosed Date [...] as of this encounter (statuses as of 07/28/2023) Resolved Problems Problem Noted Date Diagnosed Date Resolved Date S/P cholecystectomy 07/18/2023 07/18/19 24 Body mass index (BMI) of 40. 0 [...] as of this encounter (statuses as of 07/28/2023) Immunizations Name Administration Dates Next Due COVID-19 mRNA, LNP-s, No Pre serve, 2-Dose Series (Network Chemistry) 07/03/2020 HEP A - Hepatitis A (Adult > 18 yrs) 10/13/2017, 03/08/2017 Hepatitis B, 20+ yrs 06/29/2017,01/26/2017,12/27 Pneumococcal Conjugate Vacci ne, 20-valent ([id number]) 08/24/2022 Pneumococcal Polysaccharide PPV23 (Pneumovax) 07/02/2011 Seasonal [...] Answer Date Recorded PHQ Adult Total Score 10 07/25/2023 Hunger Vital Sign Answer Date Recorded Within the past 12 months, y ou worried that your food would run out before you got the money to buy more. Never true 07/25/19 24 Within the past 12 months, t he food you bought just didn't last and you didn't have money to get more. Never true 07/25/2023 Sex and Gender Information Value Date Recorded Sex Assigned at Not on file Gender Identity Not on file Sexual Orientation Not on file Job Start Date Occupation Industry Not on file Not on file Not on file documented as of this encounter Plan of Treatment Upcoming Encounters Date Type Department Care Team (Late st Contact Info) Description 08/15/2023 11:20 AM EDT Office Visit Family Practice [facility] [address] [facility] [place] [id number] Serene Lopez PA-C [address] [facility] [place] [address] 09/28/2023 9:30 AM EDT Office Visit Family Medicine [address] [place] [phone] [place] [address] 12/27/2023 9:40 AM EDT Office Visit Hepatology, [facility] [address] [facility] [place] [address] Sena Hancock MD [address] [place] [phone] Health Maintenance Due Date Last Done Comments [...] fire each visit until score < 10) 07/26/2023 07/25/2023 HbA1c 12/21/2023 06/20/2023, 02/03, 08/24/2022, Additional history exists Diabetic Foot Exam 03/01/2024 03/01/2023, 1 04/26/2021, 02/23/2021, Additional history exists Albumin/Creatinine Ratio 06/19/2024 024, 08/24/2022, 08/24/2021, Additional history exists GFR 07/17/2024 07/18/2023, 07/03, 06/20/2023, Additional history exists Lipid Panel 06/19/2028 06/20/2023, [...] Not on filedocumented as of this encounter Procedures Procedure Name Priority Date/Time Associated Diagnosis Comments OUTSIDE LAB RESULTS 07/14/2023 documented in this encounter Results * OUTSIDE LAB RESULTS (07/14/2023) 07/14/2023 No Physician Data Unknown LABORATORY documented in this encounter Advance Directives Latest Code Status on File Code Status Date Activated Date Inactivated Comments Full Code 07/11/2017 10:33 AM 07/11/2017 3:56 PM This o rder reflects the patients wishes and were consensually agreed upon. Care Teams Chief Green Officer Relationship Specialty Start Date End Date Serene Lopez PA-C [address] [place] [address] PCP - General Physician Arresting Gear Operator 07/18/23 documented as of this encounter
--- OUTSIDE RECORDS SUMMARY | 2023-08-08 08:52 | External Medical Summary ---
Author Name Unknown Address Unknown Organization [id number] - [address] [place] [address] Laboratory Report Ordering Provider Test Date Status DEQUAN ROCHE 07/18/2023 13:37:00 Final Observation Date Value Abnormality Reference (Units ) Status WBC, Total 07/18/2023 13:37:00 11.08 Above high normal 4 .00-10.80 (K/uL) Final RBC 07/18/2023 13:37:00 3.77 3.85-5.15 (M/uL) Final Hemoglobin 07/18/2023 13:37:00 12.3 12.0-15.3 (g/dL) Final Anemia reflex testing trigge rs on a HGB < 12.0 for Females and HGB < 13.0 for Males in accordance with the WHO Anemia Guidelines
Anemia reflex testing triggers on a HGB < 12.0 for Females and HGB < 13.0 for Males in accordance with the WHO Anemia Guidelines HCT 07/18/2023 13:37:00 36.9 36.0-45.2 (%) Final MCV 07/18/2023 13:37:00 97.9 81.5-97.5 (fL) Final MCH 07/18/2023 13:37:00 32.6 27.0-34.0 (pg) Final MCHC 07/18/2023 13:37:00 33.3 32.0-36.0 (g/dL) Final RDW 07/18/2023 13:37:00 15.2 11.5-15.5 (%) Final Platelets 07/18/2023 13:37:00 148 140-400 (K /uL) Final MPV 07/18/2023 13:37:00 9.9 6.6-11.1 ( fL) Final Nucleated erythrocytes/100 leukocytes [Ratio] in Blood by Automated count 07/18/2023 13:37:00 0 <=0 (/100 WBCs) [facility] Performing Location [facility] - [address] [facility] [id number]
--- OUTSIDE RECORDS SUMMARY | 2023-08-08 08:52 | External Medical Summary ---
Author Name Unknown Address Unknown Organization K01:LAB[facility]ATORY [facility] - [address] [facility] [address] Laboratory Report Ordering Provider Test Date Status DEQUAN ROCHE 07/18/2023 13:37:00 Final Observation Date Value Abnormality Reference (Units ) Status SYNC LEUKOCYTES IN BLOOD BY AUTOMATED COUNT 07/18/2023 13:37:00 11.08 Above high normal 4.00-10.80 (K/uL) Final Segs 07/18/2023 13:37:00 75.2 Above high normal 40.0-75.0 (%) Final Lymphs % 07/18/2023 13:37:00 14.4 Below low normal 18.0-42.0 (%) Final Monos 07/18/2023 13:37:00 6.4 1.0-11.0 (%) Final Eosinophils 07/18/2023 13:37:00 2.1 0.0-6.0 (%) Final Basos 07/18/2023 13:37:00 0.5 0.0-2.0 (%) Final Immature Granulocyte, Percent 07/18/2023 13:37:00 1.4 0.0-2.0 (%) Final Absolute Segs 07/18/2023 13:37:00 8.35 Above high normal 1.80-7.70 (K/uL) Final Lymphs, absolute 07/18/2023 13:37:00 1.59 1.00-4.80 (K/ul) Final Monos, Abs 07/18/2023 13:37:00 0.71 0.00-1.10 (K/uL) Final Eos, Abs 07/18/2023 13:37:00 0.23 0.00-0.70 (K/uL) Final Basos, Abs 07/18/2023 13:37:00 0.05 0.00-0.20 (K/uL) Final Immature Granulocytes, Number 07/18/2023 13:37:00 0.15 0.00-0.20 (K/uL) Final Performing Location LABORATORY [facility] [place] - [facility] [address] [facility] [address]
--- OUTSIDE RECORDS SUMMARY | 2023-08-08 08:52 | External Medical Summary | Summary of Care ---
Author Name Unknown Organization [facility] Address [address] [place] [address] Phone [phone] Care Team Providers Care Bill Adjuster Name Role Phone Serene Lopez PA-C Primary Care Provide r Encounter Details Date Type Department Care Team (Late st Contact Info) Description 07/28/2023 Orders Only Family Practice [facility] [address] [facility] [place] [address] Serene Lopez PA-C [address] [facility] [address] Allergies Active Allergy Reactions Criticality Noted Date Comments Clindamycin 05/31/2017 Hives/ ER visit Glimepiride 05/03/2022 Empagliflozin 10/31/2018 Genital rash Sulfa Antibiotics Anaphylaxis 01/13/2007 documented as of this encounter (statuses as of 07/28/2023) Medications Medication Sig Dispensed Refills Start Date End Date Status OneTouch Ultra In Vitro Strip (Glucose Blood)Indications:Ty pe 2 diabetes mellitus with hemoglobin A1c goal of less than 7.0% ([facility]),Type 2 diabetes mellitus with stage 2 chronic kidney disease, without long-term current use of insulin ([facility]) Use to test blood sugar once [...] hemoglobin A1c goal of less than 7.0% ([facility]),Type 2 diabetes mellitus with stage 2 chronic kidney disease, without long-term current use of insulin ([facility]) use with insulin twice daily 200 Each 3 09/13/2022 Active Clobetasol Propionate 0.05 % External Ointment (Temovate)Indication s:Plaque psoriasis apply to thickened areas on back 2 times daily until resolved, then when flaring. 60 g 0 11/15/2022 Active Basaglar KwikPen 100 UNIT/ML Subcutaneous Solution Pen-injector (Insulin Glargine Solostar)Indications :Type 2 diabetes mellitus with stage 2 chronic kidney disease, without long-term current use of insulin ([facility]) inject 40 units under the skin twice daily 75 mL 1 07/16/2023 Active busPIRone HCl 7.5 MG Oral Tablet (Buspar) Take 1 Tablet by mouth 2 times a day. 0 06/30/2023 Active Furosemide 40 MG Oral Tablet (Lasix) Take 1 Tablet by mouth 2 times a day. 0 07/14/2023 Active Potassium Chloride Kaci ER 20 MEQ Oral Tablet Extended Release Take 1 Tablet by mouth in the morning and 1 Tablet before bedtime. 0 07/14/2023 Active Cefdinir 300 MG Oral Capsule (Omnicef) Take 1 Capsule by mouth in the morning and 1 Capsule before bedtime. 0 07/14/2023 Active Doxycycline Hyclate 50 MG Oral Capsule (Vibramycin) Take 1 Capsule by mouth in the morning and 1 Capsule before bedtime. 0 07/06/2023 Active QUEtiapine Fumarate 25 MG Oral Tablet (SEROquel)Indication s:Hallucinations Take 1 Tablet by mouth at bedtime. 30 Tablet 1 07/18/2023 Active Pravastatin Sodium 40 MG Oral Tablet (Pravachol)Indicatio ns:Type 2 diabetes mellitus with hemoglobin A1c goal of less than 7.0% ([facility]),Hyperlipidemia with target LDL less than 100 TAKE ONE TABLET BY MOUTH AT BEDTIME 90 Tablet 1 07/21/2023 Active Ramipril 5 MG Oral Capsule (Altace)Indications: Type 2 diabetes mellitus with hemoglobin A1c goal of less than 7.0% (HCC),Type 2 diabetes mellitus with stage 2 chronic kidney disease, without long-term current use of insulin (HCC) TAKE ONE CAPSULE BY MOUTH EVERY DAY 90 Capsule 1 07/21/2023 Active metFORMIN HCl ER 500 MG Oral Tablet Extended Release 24 Hour (Glucophage XR)Indications:Type 2 diabetes mellitus with stage 2 chronic kidney disease, without long-term current use of insulin (HCC) TAKE TWO TABLETS BY MOUTH IN THE MORNING. 180 Tablet 1 07/21/2023 Active documented as of this encounter (statuses [...] mRNA, LNP-s, No Pre serve, 2-Dose Series (Missionly) 07/03/2020 HEP A - Hepatitis A (Adult > 18 yrs) 10/13/2017, 03/08/2017 Hepatitis B, 20+ yrs 06/29/2017,01/26/2017,12/27 Pneumococcal Conjugate Vacci ne, 20-valent ([id number]) 08/24/2022 Pneumococcal Polysaccharide PPV23 (Pneumovax) 07/02/2011 Seasonal [...] Family Practice [facility] [address] [place] [address] Serene Lopez PA-C [address] [place] [address] 09/28/2023 9:30 AM EDT Office Visit Family Medicine [address] [place] [phone] [address] [place] [address] 12/27/2023 9:40 AM EDT Office Visit Hepatology, [facility] [address] [facility] [place] [address] Sena Hancock MD [address] [place] [id number] Health Maintenance Due Date Last Done Comments [...] Procedure Name Priority Date/Time Associated Diagnosis Comments CHEMISTRY-OUTSIDE Routine 07/14/2023 documented in this encounter Results * (ABNORMAL) CHEMISTRY-OUTSIDE (07/14/2023) Not all results display below - see scan for full detail OUTSIDE LAB (SEE SCANNED REPORT) Comment:"SCAN INCLUDES [facility] LAB[facility]" - BMP, PHOS, MG CREATININE-OUTSID E LAB 1.05 0.6 - 1.2 MG/DL OUTSIDE LAB (SEE SCANNED REPORT) EGFR-OUTSIDE LAB 56.1 NO RANGE ML/MIN/1.7 3M2 OUTSIDE LAB (SEE SCANNED REPORT) POTASSIUM-OUTSIDE LAB 3.3(A) 3.5 - 5.1 MMOL/L OUTSIDE LAB (SEE SCANNED REPORT) GLUCOSE-OUTSIDE LAB 126(A) 70 - 99 MG/DL OUTSIDE LAB (SEE SCANNED REPORT) HOURS FASTING OUTSID E LAB (SEE SCANNED REPORT) TRIGLYCERIDES-OUT SIDE LAB OUTSIDE LAB (SEE SCANNED REPORT) CHOLESTEROL-OUTSI DE LAB OUTSIDE LAB (SEE SCANNED REPORT) HDL-OUTSIDE LAB OUTS PRIYANKA LAB (SEE SCANNED REPORT) CHOL/HDL RATIO-OUTSIDE LAB OUTSIDE LA B (SEE SCANNED REPORT) LDL (CALCULATED)-OUTS PRIYANKA LAB OUTSIDE LAB (SEE SCANNED REPORT) LDL (DIRECT MEASURE)-OUTSIDE LAB OUTSIDE LAB (SEE SCANNED REPORT) HEMOGLOBIN, X2D-YISMXFK LAB OUTSIDE LAB (SEE SCANNED REPORT) PHOSPHORUS-OUTSID E LAB 3.1 2.5 - 4.9 MG/DL OUTSIDE LAB (SEE SCANNED REPORT) PTH-OUTSIDE LAB OUTS PRIYANKA LAB (SEE SCANNED REPORT) MICROALBUMIN RATIO-OUTSIDE LAB OUTSIDE LA B (SEE SCANNED REPORT) PROTEIN, UA-OUTSIDE LAB OUTSIDE LAB (SEE SCANNED REPORT) HGB OUTSIDE LA B (SEE SCANNED REPORT) 07/14/2023 Michael Hoffman MD LABORATORY OUTSIDE LAB (SEE SCANNED REPORT) documented in this encounter Advance Directives Latest Code Status on File Code Status Date Activated Date Inactivated Comments Full Code 07/11/2017 10:33 AM 07/11/2017 3:56 PM This o rder reflects the patients wishes and were consensually agreed upon. Care Teams Bill Adjuster Relationship Specialty Start Date End Date Serene Lopez PA-C [address] [place], [place] [address] PCP - General Physician Nurse Reviewer 07/18/23 documented as of this encounter
--- OUTSIDE RECORDS SUMMARY | 2023-08-08 08:52 | External Medical Summary ---
Author Name Unknown Address Unknown Organization K01:LABORATORY [facility] [place] - [address] [facility] [address] Laboratory Report Ordering Provider Test Date Status DEE LOYOLA 07/18/2023 13:37:00 Final Observation Date Value Abnormality Reference (Units ) Status MYCODE SPECIMEN-SST 07/18/2023 13:37:00 Freezing of extracted DNA, whole blood and/or serum. Final Performing Location LABORATORY [facility] [place] - [address] [facility] [address]
--- OUTSIDE RECORDS SUMMARY | 2023-08-08 08:52 | External Medical Summary | Summary of Care ---
Author Name Unknown Organization [facility] Address [address] [place] [address] Phone [phone] Care Team Providers Care Mine Environmental Engineer Name Role Phone Eva Baez MD Primary Care Provider [phone] Reason for Visit * Reason Comments eRx-Medication Refill Encounter Details Date Type Department Care Team (Late st Contact Info) Description 07/15/2023 Refill Family Medicine [address] [address] Eva Baez MD [address] [place] [address] [place] [address] Type 2 diabetes mellitus with stage 2 chronic kidney disease, without long-term current use of insulin ([facility]) Allergies Active Allergy Reactions Criticality Noted Date Comments Clindamycin 05/31/2017 Hives/ ER visit Glimepiride 05/03/2022 Empagliflozin 10/31/2018 Genital rash Sulfa Antibiotics Anaphylaxis 01/13/2007 documented as of this encounter (statuses as of 07/16/2023) Medications Medication Sig Dispensed Refills Start Date End Date Status OneTouch Ultra In Vitro Strip (Glucose Blood)Indications: Type 2 diabetes mellitus with hemoglobin A1c goal of less than 7.0% ([facility]),Type 2 diabetes mellitus with stage 2 chronic kidney disease, without long-term current use of insulin ([facility]) Use to test blood sugar once a day 100 Strip 3 10/08/2020 Active Triamcinolone Acetonide 0.1 % External Ointment (Aristocort)Indica tions:Plaque psoriasis Apply 2x daily to spots on R wrist/arms until resolved, then when flaring 454 g 1 08/16/2022 Active Tacrolimus 0.1 % External Ointment (Protopic)Indicati ons:Inverse psoriasis Apply topically to affected area 2 times a day. Apply thin layer to skin folds 2x daily with Desitin 40% cream (over the counter) over top 200 g 3 08/19/2022 Active BD Pen Needle Mini U/F 31G X 5 MM (Insulin Pen Needle)Indications :Type 2 diabetes mellitus with hemoglobin A1c goal of less than 7.0% ([facility]),Type 2 diabetes mellitus with stage 2 chronic kidney disease, without long-term current use of insulin ([facility]) use with insulin twice daily 200 Each 3 09/13/2022 Active Clobetasol Propionate 0.05 % External Ointment (Temovate)Indicati ons:Plaque psoriasis apply to thickened areas on back 2 times daily until resolved, then when flaring. 60 g 0 11/15/2022 Active Ramipril 5 MG Oral Capsule (Altace)Indication s:Type 2 diabetes mellitus with hemoglobin A1c goal of less than 7.0% ([facility]),Type 2 diabetes mellitus with stage 2 chronic kidney disease, without long-term current use of insulin ([facility]) TAKE ONE CAPSULE BY MOUTH EVERY DAY 90 Capsule 1 01/25/2023 Active Pravastatin Sodium 40 MG Oral Tablet (Pravachol)Indicat ions:Type 2 diabetes mellitus with hemoglobin A1c goal of less than 7.0% ([facility]),Hyperlipidem ia with target LDL less than 100 TAKE ONE TABLET BY MOUTH AT BEDTIME 90 Tablet 1 01/25/2023 Active metFORMIN HCl ER 500 MG Oral Tablet Extended Release 24 Hour (Glucophage XR)Indications:Typ e 2 diabetes mellitus with stage 2 chronic kidney disease, without long-term current use of insulin ([facility]) TAKE TWO TABLETS BY MOUTH IN THE MORNING 180 Tablet 0 04/23/2023 Active Basaglar KwikPen 100 UNIT/ML Subcutaneous Solution Pen-injector (Insulin Glargine Solostar)Indicatio ns:Type 2 diabetes mellitus with stage 2 chronic kidney disease, without long-term current use of insulin ([facility]) inject 40 units under the skin twice daily 75 mL 1 07/16/2023 Active Basaglar KwikPen 100 UNIT/ML Subcutaneous Solution Pen-injector (Insulin Glargine Solostar)Indicatio ns:Type 2 diabetes mellitus with stage 2 chronic kidney disease, without long-term current use of insulin (HCC) inject 40 units under the skin twice daily 75 mL 1 01/20/2023 4 Discontinued documented as of this encounter (statuses as of 07/16/2023) Active Problems Problem Noted Date Diagnosed Date [...] as of this encounter (statuses as of 07/16/2023) Resolved Problems Problem Noted Date Diagnosed Date [...] as of this encounter (statuses as of 07/16/2023) Immunizations Name Administration Dates Next Due COVID-19 mRNA, LNP-s, No Pre serve, 2-Dose Series (Pfizer) 07/03/2020 HEP A - Hepatitis A (Adult > 18 yrs) 10/13/2017, 03/08/2017 Hepatitis B, 20+ yrs 06/29/2017,01/26/2017,12/27 Pneumococcal Conjugate Vacci ne, 20-valent ([id number]) 08/24/2022 Pneumococcal Polysaccharide PPV23 (Pneumovax) 07/02/2011 Seasonal [...] on file documented as of this encounter Miscellaneous Notes * Telephone Encounter - Chas Stephens, [facility] - 07/16/2023 1:39 PM EDTSigned Prescriptions: Disp Refills Basaglar KwikPen 100 UNIT/ML Subcutaneous *75 mL 1 Sig: inject 40 units under the skin twice dailyAuthorizing Provider: EVA BAEZ User: CHAS STEPHENS documented in this encounter Plan of Treatment Upcoming Encounters Date Type Department Care Team (Late st Contact Info) Description 07/18/2023 11:20 AM EDT Office Visit [facility] [place] [facility] [place] [address] Serene Lopez PA-C [address] [facility] [place] [address] 07/21/2023 8:20 AM EDT Office Visit [address] [address] Eva Baez MD [address] [place] [address] [place] [address] 09/28/2023 9:30 AM EDT Office Visit [address] [address] María Anton DO [address] [place] [address] [place] [address] Health Maintenance Due Date Last Done Comments [...] as of this encounter Visit Diagnoses Diagnosis Type 2 diabetes mellitus with stage 2 chronic kidney disease, without long-term current use of insulin (HCC) documented in this encounter Advance Directives Latest Code Status on File Code Status Date Activated Date Inactivated Comments Full Code 07/11/2017 10:33 AM 07/11/2017 3:56 PM This o rder reflects the patients wishes and were consensually agreed upon. Care Teams Mine Environmental Engineer Relationship Specialty Start Date End Date Eva Baez MD [address] [place] [address] [place] [address] PCP - General Family Medicine 12/14/13 documented as of this encounter
--- OUTSIDE RECORDS SUMMARY | 2023-08-08 08:52 | External Medical Summary ---
Author Name Unknown Address Unknown Organization K01:LABORATORY [facility] [place] - [address] [facility] [address] Laboratory Report Ordering Provider Test Date Status DEQUAN ROCHE 07/18/2023 13:37:00 Final Observation Date Value Abnormality Reference (Units ) Status Ferritin 07/18/2023 13:37:00 332 Above high normal 13 -150 (ng/mL) Final Postmenopausal women have hi gher ferritin levels than pre-menopausal women. The above reference interval is based on pre-menopausal women. Performing Location LABORATORY [facility] [place] - [address] [facility] [address]
--- OUTSIDE RECORDS SUMMARY | 2023-08-08 08:52 | External Medical Summary ---
Author Name Unknown Address Unknown Organization K09:LABORATORY [place] [facility] - [address] [place] [address] Laboratory Report Ordering Provider Test Date Status DEQUAN ROCHE 07/18/2023 13:37:00 Final Observation Date Value Abnormality Reference (Units ) Status BUN 07/18/2023 13:37:00 20 6-20 (mg/dL) Final Creatinine 07/18/2023 13:37:00 1.0 0.5-1.0 (mg/dL) Final Glomerular filtration rate/1.73 sq M.predicted [Volume Rate/Area] in Serum, Plasma or Blood by Creatinine-based formula (CKD-EPI) 07/18/2023 13:37:00 61 >=60 (mL/min) Final eGFR is calculated based on the CKD-EPI 2020 equation Sodium 07/18/2023 13:37:00 139 135-146 (m mol/L) Final Potassium 07/18/2023 13:37:00 3.8 3.5-5.1 (m mol/L) Final Cl 07/18/2023 13:37:00 99 98-107 (mm ol/L) Final CO2 07/18/2023 13:37:00 30 22-32 (mmo l/L) Final Anion gap 07/18/2023 13:37:00 10 7-15 (mmol /L) Final Glucose 07/18/2023 13:37:00 126 Above high normal 70 -120 (mg/dL) Final Albumin 07/18/2023 13:37:00 3.4 Below low normal 3.8 -5.0 (g/dL) Final AST (Aspartate aminotransferase) 07/18/2023 13:37:00 36 Above high normal 10-35 (U/L) Final Alk Phos 07/18/2023 13:37:00 131 Above high normal 35 -130 (U/L) Final Bilirubin, Total 07/18/2023 13:37:00 1.6 Above high no rmal <=1.2 (mg/dL) Final Calcium 07/18/2023 13:37:00 9.2 8.4-10.2 ( mg/dL) Final Protein 07/18/2023 13:37:00 8.1 6.0-8.3 (g /dL) Final ALT (Alanine aminotransferase) 07/18/2023 13:37:00 21 10-35 (U/L) Mitchell taylor Performing Location LABORATORY [place] [facility] - [address] [place] [address]
--- OUTSIDE RECORDS SUMMARY | 2023-08-08 08:52 | External Medical Summary ---
Author Name Unknown Address Unknown Organization K01:LABORATORY [facility] [place] - [address] [place] [address] Laboratory Report Ordering Provider Test Date Status MELCHORMICHELDEQUAN 07/18/2023 13:37:00 Final Observation Date Value Abnormality Reference (Units ) Status Iron 07/18/2023 13:37:00 62 33-151 (ug /dL) Final Iron-binding capacity 07/18/2023 13:37:00 274 250-425 (ug/dL) Final Transferrin Sat % 07/18/2023 13:37:00 23 15 -55 (%) Final Performing Location LAB[facility]ATORY [facility] - [address] [facility] [address]
--- OUTSIDE RECORDS SUMMARY | 2023-08-08 08:52 | External Medical Summary ---
Author Name Unknown Address Unknown Organization K01:LABORATORY [facility] [place] - [address] [facility] [address] Laboratory Report Ordering Provider Test Date Status DEE LOYOLA 07/18/2023 13:37:00 Final Observation Date Value Abnormality Reference (Units ) Status MYCODE SPECIMEN-SST 07/18/2023 13:37:00 Freezing of extracted DNA, whole blood and/or serum. Final Performing Location LABORATORY [facility] [place] - [address] [facility] [address]
--- OUTSIDE RECORDS SUMMARY | 2023-08-08 08:52 | External Medical Summary | Summary of Care ---
Author Name Unknown Organization [facility] Address [address] [place] [address] Phone [phone] Care Team Providers Care Industrial Maintenance Electrician Name Role Phone Serene Lopez PA-C Primary Care Provide r Encounter Details Date Type Department Care Team (Late st Contact Info) Description 07/26/2023 Orders Only Outcomes Research Department [address] [place] [address] Fanny Nielsen CHRA [employer] [facility] Other*[id number] Allergies Active Allergy Reactions Criticality Noted Date Comments Clindamycin 05/31/2017 Hives/ ER visit Glimepiride 05/03/2022 Empagliflozin 10/31/2018 Genital rash Sulfa Antibiotics Anaphylaxis 01/13/2007 documented as of this encounter (statuses as of 07/26/2023) Medications Medication Sig Dispensed Refills Start Date End Date Status OneTouch Ultra In Vitro Strip (Glucose Blood)Indications:Ty pe 2 diabetes mellitus with hemoglobin A1c goal of less than 7.0% ([facility]),Type 2 diabetes mellitus with stage 2 chronic kidney disease, without long-term current use of insulin ([facility]) Use to test blood sugar [...] A1c goal of less than 7.0% ([facility]),Type 2 diabetes mellitus with stage 2 chronic kidney disease, without long-term current use of insulin ([facility]) use with insulin twice daily 200 [...] without long-term current use of insulin ([facility]) inject 40 units under the skin [...] A1c goal of less than 7.0% ([facility]),Hyperlipidemia with target LDL less than 100 [...] as of this encounter (statuses as of 07/26/2023) Active Problems Problem Noted Date Diagnosed Date [...] as of this encounter (statuses as of 07/26/2023) Resolved Problems Problem Noted Date Diagnosed Date [...] as of this encounter (statuses as of 07/26/2023) Immunizations Name Administration Dates Next Due COVID-19 mRNA, LNP-s, No Pre serve, 2-Dose Series (Manzama) 07/03/2020 HEP A - Hepatitis A (Adult > 18 yrs) 10/13/2017, 03/08/2017 Hepatitis B, 20+ yrs 06/29/2017,01/26/2017,12/27 Pneumococcal Conjugate Vacci ne, 20-valent ([id number]) 08/24/2022 Pneumococcal Polysaccharide PPV23 (Pneumovax) 07/02/2011 Seasonal [...] 11:20 AM EDT Office Visit Family Practice [place] [place] [address] [place], [place] [address] Serene Lopez PA-C [address] [facility] [place] [address] 09/28/2023 9:30 AM EDT Office Visit Family Medicine [address] [place] [phone] Mar[address] [place] [address] 12/27/2023 9:40 AM EDT Office Visit Hepatology, [facility] [address] [facility] [place] [address] Sena Hancock MD [address] [place] [address] Scheduled Orders Name Type Priority Associated Diagnoses Orde r Schedule MYCODE SUBSEQUENT ADULT Lab Routine [employer] Other*[id number] Every 6 Months for 2 Occurrences starting 07/26/2023 until 08/14/2024 Health Maintenance Due Date Last Done Comments [...] 08/24/2021, Additional history exists GFR 07/17/2024 07/18/2023, 06/02, 08/24/2022, Additional history exists Lipid Panel 06/19/2028 06/20/2023, [...] this encounter Visit Diagnoses Diagnosis [facility] Other*[id number] documented in this encounter Advance Directives Latest Code Status on File Code Status Date Activated Date Inactivated Comments Full Code 07/11/2017 10:33 AM 07/11/2017 3:56 PM This o rder reflects the patients wishes and were consensually agreed upon. Care Teams Industrial Maintenance Electrician Relationship Specialty Start Date End Date Serene Lopez PA-C [address] [place] [address] PCP - General Physician Geophysical Computer 07/18/23 documented as of this encounter
--- OUTSIDE RECORDS SUMMARY | 2023-08-08 08:52 | External Medical Summary | Summary of Care ---
Author Name Unknown Organization [facility] Address [address] [place] [address] Phone [phone] Care Team Providers Care Offc Spec Name Role Phone Serene Lopez PA-C Primary Care Provide r Reason for Visit * Reason Comments Outpatient Testing Encounter Details Date Type Department Care Team (Late st Contact Info) Description 07/18/2023 1:40 PM EDT Laboratory Laboratory [facility] [address] [place] [address] [place], [address] Scenery [address] [place] [address] [employer] Other*[id number]; Portal hypertension ([facility]); CKD (chronic kidney disease), stage II; Thrombocytopenia ([facility]) Allergies Active Allergy Reactions Criticality Noted Date Comments Clindamycin 05/31/2017 Hives/ ER visit Glimepiride 05/03/2022 Empagliflozin 10/31/2018 Genital rash Sulfa Antibiotics Anaphylaxis 01/13/2007 documented as of this encounter (statuses as of 07/18/2023) Medications Medication Sig Dispensed Refills Start Date End Date Status OneTouch Ultra In Vitro Strip (Glucose Blood)Indications:Ty pe 2 diabetes mellitus with hemoglobin A1c goal of less than 7.0% ([facility]),Type 2 diabetes mellitus with stage 2 chronic kidney disease, without long-term current use of insulin ([facility]) Use to test blood sugar once a [...] hemoglobin A1c goal of less than 7.0% ([facility]),Type 2 diabetes mellitus with stage 2 chronic kidney disease, without long-term current use of insulin ([facility]) use with insulin twice daily 200 Each 3 09/13/2022 Active Clobetasol Propionate 0.05 % External Ointment (Temovate)Indication s:Plaque psoriasis apply to thickened areas on back 2 times daily until resolved, then when flaring. 60 g 0 11/15/2022 Active Ramipril 5 MG Oral Capsule (Altace)Indications: Type 2 diabetes mellitus with hemoglobin A1c goal of less than 7.0% ([facility]),Type 2 diabetes mellitus with stage 2 chronic kidney disease, without long-term current use of insulin ([facility]) TAKE ONE CAPSULE BY MOUTH EVERY DAY 90 Capsule 1 01/25/2023 Active Pravastatin Sodium 40 MG Oral Tablet (Pravachol)Indicatio ns:Type 2 diabetes mellitus with hemoglobin A1c goal of less than 7.0% ([facility]),Hyperlipidemia with target LDL less than 100 TAKE ONE TABLET BY MOUTH AT BEDTIME 90 Tablet 1 01/25/2023 Active metFORMIN HCl ER 500 MG Oral Tablet Extended Release 24 Hour (Glucophage XR)Indications:Type 2 diabetes mellitus with stage 2 chronic kidney disease, without long-term current use of insulin ([facility]) TAKE TWO TABLETS BY MOUTH IN THE MORNING 180 Tablet 0 04/23/2023 Active Basaglar KwikPen 100 UNIT/ML Subcutaneous Solution Pen-injector (Insulin Glargine Solostar)Indications :Type 2 diabetes mellitus with stage 2 chronic kidney disease, without long-term current use of insulin ([facility]) inject 40 units under the skin twice [...] at bedtime. 30 Tablet 1 07/18/2023 Active documented as of this encounter (statuses as of 07/18/2023) Active Problems Problem Noted Date Diagnosed Date [...] as of this encounter (statuses as of 07/18/2023) Resolved Problems Problem Noted Date Diagnosed Date [...] as of this encounter (statuses as of 07/18/2023) Immunizations Name Administration Dates Next Due COVID-19 mRNA, LNP-s, No Pre serve, 2-Dose Series ([employer]) 07/03/2020 HEP A - Hepatitis A (Adult > 18 yrs) 10/13/2017, 03/08/2017 Hepatitis B, 20+ yrs 06/29/2017,01/26/2017,12/27 Pneumococcal Conjugate Vacci ne, 20-valent ([id number]) 08/24/2022 Pneumococcal Polysaccharide PPV23 (Pneumovax) 07/02/2011 Seasonal [...] 11:20 AM EDT Office Visit Family Practice [facility] [address] [place] [address] Serene Lopez PA-C [address] [facility] [place] [address] 09/28/2023 9:30 AM EDT Office Visit Family Medicine [address] [place] [phone] María [address] [place] [address] 12/27/2023 9:40 AM EDT Office Visit Hepatology, [facility] [address] [facility] [place] [address] Sena Hancock MD [address] [place] [phone] Pending Results Name Type Priority Associated Diagnoses Date /Time MYCODE SUBSEQUENT ADULT Lab Routine [employer] Other*[id number] 07/18/2023 1:37 PM EDT COMPREHENSIVE METABOLIC PANEL Lab Routine Portal hypertension (HCC) CKD (chronic kidney disease), stage II 07/18/2023 1:37 PM EDT CBC WITH WBC DIFFERENTIAL AND ANEMIA REFLEX WORKUP Lab Routine Thrombocytopenia (HCC) 07/18/2023 1:37 PM EDT IRON SCREEN, INCLUDING TIBC Lab Routine Thrombocytopenia (HCC) 07/18/2023 1:37 PM EDT FERRITIN Lab Routine Thrombocytopenia (HCC) 07/18/2023 1:37 PM EDT MYCODE SST1 Lab Routine [employer] Other*[id number] 07/18/2023 1:37 PM EDT MYCODE SST2 Lab Routine [employer] Other*[id number] 07/18/2023 1:37 PM EDT ANEMIA CBC Lab Routine Thrombocytopenia (HCC) 07/18/2023 1:37 PM EDT DIFFERENTIAL, AUTOMATED Lab Routine Thrombocytopenia ([facility]) 07/18/2023 1:37 PM EDT ANEMIA REFLEX CHEMISTRY HOLD Lab Routine Thrombocytopenia ([facility]) 07/18/2023 1:37 PM EDT Health Maintenance Due Date Last [...] this encounter Visit Diagnoses Diagnosis [employer] Other*[id number] Portal hypertension (HCC) Portal hypertension CKD (chronic kidney disease), stage II Chronic kidney disease, Stage II (mild) Thrombocytopenia (HCC) Thrombocytopenia, unspecified documented in this encounter Advance Directives Latest Code Status on File Code Status Date Activated Date Inactivated Comments Full Code 07/11/2017 10:33 AM 07/11/2017 3:56 PM This o rder reflects the patients wishes and were consensually agreed upon. Care Teams Offc Spec Relationship Specialty Start Date End Date Serene Lopez PA-C [address] [place] [address] PCP - General Physician As400 Consultant 07/18/23 documented as of this encounter
--- OUTSIDE RECORDS SUMMARY | 2023-08-08 08:52 | External Medical Summary | Summary of Care ---
Author Name Unknown Organization [facility] Address [address] [place] [address] Phone [phone] Care Team Providers Care Vault Service Mechanic Name Role Phone Serene Lopez PA-C Primary Care Provide r Reason for Visit * Reason Comments Hospital Follow-Up Encounter Details Date Type Department Care Team (Late st Contact Info) Description 07/18/2023 11:20 AM EDT Office Visit Family [facility] [address] [facility] [place] [address] [facility]C [facility] [address] Hospital discharge follow-up*; Hallucinations; Type 2 diabetes mellitus with stage 2 chronic kidney disease, without long-term current use of insulin (HCC); Type 2 diabetes mellitus with hemoglobin A1c goal of less than 7.0% (HCC); Hyperlipidemia with target LDL less than 100; Portal hypertension (HCC); Thrombocytopenia (HCC); Splenomegaly; Obstructive sleep apnea syndrome; Cirrhosis of liver without ascites, unspecified hepatic cirrhosis type (HCC); Vitamin D deficiency; CKD (chronic kidney disease), stage II; Lymphedema; Rosacea Allergies Active Allergy Reactions Criticality Noted Date Comments Clindamycin 05/31/2017 Hives/ ER visit Glimepiride 05/03/2022 Empagliflozin 10/31/2018 Genital rash Sulfa Antibiotics Anaphylaxis 01/13/2007 documented as of this encounter (statuses as of 07/31/2023) Medications Medication Sig Dispensed Refills Start Date End Date Status OneTouch Ultra In Vitro Strip (Glucose Blood)Indications :Type 2 diabetes mellitus with hemoglobin A1c goal of less than 7.0% ([facility]),Type 2 diabetes mellitus with stage 2 chronic kidney disease, without long-term current use of insulin ([facility]) Use to test blood sugar once a day 100 Strip 3 1 Active Triamcinolone Acetonide 0.1 % External Ointment (Aristocort)Indic ations:Plaque psoriasis Apply 2x daily to spots on R wrist/arms until resolved, then when flaring 454 g 1 3 Active Tacrolimus 0.1 % External Ointment (Protopic)Indicat ions:Inverse psoriasis Apply topically to affected area 2 times a day. Apply thin layer to skin folds 2x daily with Desitin 40% cream (over the counter) over top 200 g 3 3 Active BD Pen Needle Mini U/F 31G X 5 MM (Insulin Pen Needle)Indication s:Type 2 diabetes mellitus with hemoglobin A1c goal of less than 7.0% ([facility]),Type 2 diabetes mellitus with stage 2 chronic kidney disease, without long-term current use of insulin ([facility]) use with insulin twice daily 200 Each 3 3 Active Clobetasol Propionate 0.05 % External Ointment (Temovate)Indicat ions:Plaque psoriasis apply to thickened areas on back 2 times daily until resolved, then when flaring. 60 g 0 3 Active Basaglar KwikPen 100 UNIT/ML Subcutaneous Solution Pen-injector (Insulin Glargine Solostar)Indicati ons:Type 2 diabetes mellitus with stage 2 chronic kidney disease, without long-term current use of insulin ([facility]) inject 40 units under the skin twice daily 75 mL 1 4 Active busPIRone HCl 7.5 MG Oral Tablet (Buspar) Take 1 Tablet by mouth 2 times a day. 0 4 Active Furosemide 40 MG Oral Tablet (Lasix) Take 1 Tablet by mouth 2 times a day. 0 4 Active Potassium Chloride Kaci ER 20 MEQ Oral Tablet Extended Release Take 1 Tablet by mouth in the morning and 1 Tablet before bedtime. 0 4 Active Cefdinir 300 MG Oral Capsule (Omnicef) Take 1 Capsule by mouth in the morning and 1 Capsule before bedtime. 0 4 Active Doxycycline Hyclate 50 MG Oral Capsule (Vibramycin) Take 1 Capsule by mouth in the morning and 1 Capsule before bedtime. 0 4 Active QUEtiapine Fumarate 25 MG Oral Tablet (SEROquel)Indicat ions:Hallucinatio ns Take 1 Tablet by mouth at bedtime. 30 Tablet 1 4 Active Ramipril 5 MG Oral Capsule (Altace)Indicatio ns:Type 2 diabetes mellitus with hemoglobin A1c goal of less than 7.0% (HCC),Type 2 diabetes mellitus with stage 2 chronic kidney disease, without long-term current use of insulin (HCC) TAKE ONE CAPSULE BY MOUTH EVERY DAY 90 Capsule 1 3 07/21/19 24 Discontinued Pravastatin Sodium 40 MG Oral Tablet (Pravachol)Indica tions:Type 2 diabetes mellitus with hemoglobin A1c goal of less than 7.0% (HCC),Hyperlipide shahida with target LDL less than 100 TAKE ONE TABLET BY MOUTH AT BEDTIME 90 Tablet 1 3 07/21/19 24 Discontinued metFORMIN HCl ER 500 MG Oral Tablet Extended Release 24 Hour (Glucophage XR)Indications:Ty pe 2 diabetes mellitus with stage 2 chronic kidney disease, without long-term current use of insulin (HCC) TAKE TWO TABLETS BY MOUTH IN THE MORNING 180 Tablet 0 4 07/21/19 24 Discontinued Doxycycline Hyclate 100 MG Oral CapsuleIndication s:Cellulitis of right lower extremity Take 1 Capsule by mouth in the morning and 1 Capsule before bedtime. Do all this for 10 days. Until gone.. 20 Capsule 0 4 07/18/19 24 Discontinued([facility] List Clean Up) documented as of this encounter (statuses as of 07/31/2023) Active Problems Problem Noted Date Diagnosed Date [...] as of this encounter (statuses as of 07/31/2023) Resolved Problems Problem Noted Date Diagnosed Date [...] as of this encounter (statuses as of 07/31/2023) Immunizations Name Administration Dates Next Due COVID-19 mRNA, LNP-s, No Pre serve, 2-Dose Series ([employer]) 07/03/2020 HEP A - Hepatitis A (Adult > 18 yrs) 10/13/2017, 03/08/2017 Hepatitis B, 20+ yrs 06/29/2017,01/26/2017,12/27 Pneumococcal Conjugate Vacci ne, 20-valent ([id number]) 08/24/2022 Pneumococcal Polysaccharide PPV23 (Pneumovax) 07/02/2011 Seasonal [...] Sign Reading Time Taken Comments Blood Pressure 106/60 07/18/2023 12:01 PM EDT Pulse 74 07/18/2023 12:01 PM EDT Temperature 37.1 C (98.7 F) 07/18/2023 12:01 PM E DT Respiratory Rate 18 07/18/2023 12:01 PM EDT Oxygen Saturation 98% 07/18/2023 12:01 PM EDT Inhaled Oxygen Concentration - - Weight 127 kg (280 lb) 07/18/2023 12:01 PM EDT Height - - Body Mass Index 45.87 12/13/2022 11:51 AM EDT documented in this encounter Progress Notes * Serene Lopez PA-C - 07/31/2023 4:43 PM EDT Subjective Juli Lewis is a 62 year old female that presents for Hospital Follow-Up 62 y/o female presents for hospital discharge follow-up. Admission date: 07/09/23 Discharge date: 07/12/23 Facility: [facility] Pt was admitted for severe sepsis with SIRS criteria plus lactic acidosis- source right leg cellulitis. Also fluid overload secondary to liver cirrhosis. She reports that she is feeling much better from a leg standpoint and fluid standpoint but since being home, she has been having hallucinations and isn't sleeping. They started in the hospital and have continued since coming home. She states they are awful- she will wake up in the middle of the night and see her fijulito at the end of her bed. Sometimes will see her grandchildren standing by her, talking to her, and then one by one they will all disappear. She reports it is terrible, makes her sad and scared all at the same time. She wishes it would stop. She is not currently taking anything for sleep or mood. Damion recently andthere have been stressors with dealing with his and property. She was supposed to see hepatology for follow-up but was in the hospital when this happened- we will call and reschedule this for her. She did see wound clinic about her leg, they didn't feel it was anything that needed chronic attention and wanted her to follow-up PRN. She will need labs today to recheck electrolyte abnormalities from the hospital. Will have her also talk with case management today and get her enrolled under case management care to assist- she is complex and high risk for readmission. Objective BP 106/60 | Pulse 74 | Temp 37.1 C (98.7 F) (Tympanic) | Resp 18 | Wt 127 kg (280 lb) | SpO2 98% | BMI 45.87 kg/m | BSA 2.42 m Body mass index is 45.87 kg/m. BP Readings from Last 3 Encounters: 07/18/23 106/60 06/20/23 122/64 03/01/23 132/78 Wt Readings from Last 3 Encounters: 07/18/23 127 kg (280 lb) 06/20/23 132 kg (291 lb) 03/01/23 133.6 kg (294 lb 7 oz) Physical Exam Vitals and nursing note reviewed. Constitutional: General: She is not in acute distress. Appearance: Normal appearance. HENT: Head: Normocephalic and atraumatic. Eyes: General: No scleral icterus. Extraocular Movements: Extraocular movements intact. Conjunctiva/sclera: Conjunctivae normal. Pupils: Pupils are equal, round, and reactive to light. Cardiovascular: Rate and Rhythm: Normal rate and regular rhythm. Heart sounds: No murmur heard. No friction rub. No gallop. Pulmonary: Effort: Pulmonary effort is normal. Breath sounds: Normal breath sounds. No stridor. No wheezing, rhonchi or rales. Skin: General: Skin is warm and dry. Findings: No rash. Comments: The bilateral lower legs are dried, cracking. The right lower leg does look much improvedfrom previous. There are no open wounds, no active draining. It is larger than the left leg and more dried, scaling skin but this is her baseline. Neurological: General: No focal deficit present. Mental Status: She is alert and oriented to person, place, and time. Psychiatric: Mood and Affect: Mood normal. Comments: Reports AVH at night Assessment and plan 1. Hospital discharge follow-up 2. Hallucinations -will add seroquel before bed to see if this helps with her ?hallucinations vs nightmares vs sundowning before bed -recheck in 4 weeks in office - QUEtiapine Fumarate 25 MG Oral Tablet (SEROquel); Take 1 Tablet by mouth at bedtime. Dispense: 30Tablet; Refill: 1 3. Type 2 diabetes mellitus with stage 2 chronic kidney disease, without long- term current use of insulin (HCC) -currently well controlled 4. Type 2 diabetes mellitus with hemoglobin A1c goal of less than 7.0% (HCC) 5. Hyperlipidemia with target LDL less than 100 6. Portal hypertension (HCC) -need to reschedule her hepatology appointment for as soon as possible, daria since she is getting fluid overloaded easily -recheck labs - COMPREHENSIVE METABOLIC PANEL; Future 7. Thrombocytopenia (HCC) -recheck labs- this is her baseline - CBC WITH WBC DIFFERENTIAL AND ANEMIA REFLEX WORKUP; Future - IRON SCREEN, INCLUDING TIBC; Future - FERRITIN; Future 8. Splenomegaly 9. Obstructive sleep apnea syndrome 10. Cirrhosis of liver without ascites, unspecified hepatic cirrhosis type (HCC) 11. Vitamin D deficiency 12. CKD (chronic kidney disease), stage II - COMPREHENSIVE METABOLIC PANEL; Future 13. Lymphedema -cellulitis is resolved today -warm hand off to Billie Gregg RNmanager council today -follow-up with wound clinic PRN -plan made with Billie for wound check in 2 weeks via video visit 14. Rosacea Follow up Follow-up: Return in about 4 weeks (around 08/15/2023). | Check-out note: Recheck in office- 40 min appt Labs today Reschedule hepatlogy appt- pt was in the hospital Total time today including reviewing chart before the visit, pertinent labs, imaging reports, face to face time, and documentation time was 45 minutes. The above was discussed and understanding was expressed. Serene Lopez PA-C documented in this encounter Nursing Notes * Radhika Eastman LPN - 07/18/2023 11:54 AM EDT Juli Lewis presents for 4 week recheck. Medications & HM reviewed. documented in this encounter Plan of Treatment Upcoming Encounters Date Type Department Care Team (Late st Contact Info) Description 08/15/2023 11:20 AM EDT Office Visit Family Practice [facility] [address] [facility] [place] [address] Serene Lopez PA-C [address] [facility] [place] [address] 09/28/2023 9:30 AM EDT Office Visit Family [address] [phone] María [address] [place] [address] 12/27/2023 9:40 AM EDT Office Visit Hepatology, [facility] [address] [facility] [place] [address] Sena Hancock MD [address] [place] [phone] Health Maintenance Due Date Last Done Comments [...] 08/24/2021, Additional history exists GFR 07/17/2024 07/18/2023, 0404/2023, 06/20/2023, Additional history exists Lipid Panel 06/19/2028 [...] as of this encounter Results * (ABNORMAL) FERRITIN (07/18/2023 1:37 PM EDT) Ferritin 332(H) 13 - 150 ng/mL 07/19/2023 4:42 AM EDT [facility] Comment:Postmenopausal women have higher ferritin levels than pre-menopausal women. The above reference interval is based on pre-menopausal women. Blood Venous blood specimen / Unknown Venipuncture / Unknown 07/18/2023 1:37 PM EDT 07/18/2023 1:37 PM EDT Serene Lopez PA-C LAB BLOOD ORD ERABLES Performing Organization Address City/[facility] Co de Phone Number [facility] [address] [place] [address] * IRON SCREEN, INCLUDING TIBC (07/18/2023 1:37 PM EDT) Iron 62 33 - 151 ug/dL 07/19/2023 4:15 AM EDT [facility] Iron Binding Capacity 274 250 - 425 ug/dL 07/19/2023 4:15 AM EDT [facility] Transferrin Saturation Percent 23 15 - 55 % 07/19/2023 4:15 AM EDT [facility] Blood Venous blood specimen / Unknown Venipuncture / Unknown 07/18/2023 1:37 PM EDT 07/18/2023 1:37 PM EDT Serene Lopez PA-C LAB BLOOD ORD ERABLES Performing Organization Address [facility] de Phone Number [facility]ORY [facility] [address] [place] [address] * (ABNORMAL) COMPREHENSIVE METABOLIC PANEL (07/18/2023 1:37 PM EDT) BUN 20 6 - 20 mg/dL 07/18/2023 2:41 PM EDT [facility] 56- Creatinine 1.0 0.5 - 1.0 mg/dL 07/18/2023 2:41 PM EDT [facility] 56- Estimated Glomerular Filtration Rate 61 >=60 mL/min 07/18/2023 2:41 PM EDT [facility] 56- Comment:eGFR is calculated b ased on the CKD-EPI 2020 equation Sodium 139 135 - 146 mmol/L 07/18/2023 2:41 PM EDT [facility] 56 Potassium 3.8 3.5 - 5.1 mmol/L 07/18/2023 2:41 PM EDT [facility] 56 Chloride 99 98 - 107 mmol/L 07/18/2023 2:41 PM EDT [facility] 56 CO2 30 22 - 32 mmol/L 07/18/2023 2:41 PM EDT [facility] 56 Anion Gap 10 7 - 15 mmol/L 07/18/2023 2:41 PM EDT [address] Glucose 126(H) 70 - 120 mg/dL 07/18/2023 2:41 PM EDT [facility] 56 Albumin 3.4(L) 3.8 - 5.0 g/dL 07/18/2023 2:41 PM EDT [facility] 56 AST 36(H) 10 - 35 U/L 07/18/2023 2:41 PM EDT [address] Alkaline Phosphatase 131(H) 35 - 130 U/L 07/18/2023 2:41 PM EDT [facility] 56 Bilirubin, Total 1.6(H) <=1.2 mg/dL 07/18/2023 2:41 PM EDT [facility] 56 Calcium 9.2 8.4 - 10.2 mg/dL 07/18/2023 2:41 PM EDT [facility] 56 Protein 8.1 6.0 - 8.3 g/dL 07/18/2023 2:41 PM EDT [facility] 56 ALT 21 10 - 35 U/L 07/18/2023 2:41 PM EDT [facility] 56 Blood Venous blood specimen / Unknown Venipuncture / Unknown 07/18/2023 1:37 PM EDT 07/18/2023 1:37 PM EDT Serene Lopez PA-C LAB BLOOD ORD ERABLES [facility] [address] [place] [address] documented in this encounter Visit Diagnoses Diagnosis Hospital discharge follow-up- Primary Other follow-up examination Hallucinations Type 2 diabetes mellitus with stage 2 chronic kidney disease, without long-term current use of insulin (HCC) Type 2 diabetes mellitus with hemoglobin A1c goal of less than 7.0% (HCC) Hyperlipidemia with target LDL less than 100 Other and unspecified hyperlipidemia Portal hypertension (HCC) Portal hypertension Thrombocytopenia (HCC) Thrombocytopenia, unspecified Splenomegaly Obstructive sleep apnea syndrome Obstructive sleep apnea (adult) (pediatric) Cirrhosis of liver without ascites, unspecified hepatic cirrhosis type (HCC) Vitamin D deficiency Unspecified vitamin D deficiency CKD (chronic kidney disease), stage II Chronic kidney disease, Stage II (mild) Lymphedema Other lymphedema Rosacea documented in this encounter Advance Directives Latest Code Status on File Code Status Date Activated Date Inactivated Comments Full Code 07/11/2017 10:33 AM 07/11/2017 3:56 PM This o rder reflects the patients wishes and were consensually agreed upon. Care Teams Vault Service Mechanic Relationship Specialty Start Date End Date Serene Lopez PA-C [address] [place] [address] PCP - General Physician Parts Picker 07/18/23 documented as of this encounter"
[2023-08-08 11:45] LABS: Adenovirus F 40/41 PCR Not Detected (NotDetected); Astrovirus PCR Not Detected (NotDetected); Campylobacter PCR Not Detected (NotDetected); Cryptosporidium PCR Not Detected (NotDetected); Cyclospora cayetanensis PCR Not Detected (NotDetected); Entamoeba histolytica PCR Not Detected (NotDetected); Enteroaggregative E.coli(EAEC) Not Detected (NotDetected); Enteropathogenic E.coli (EPEC) Not Detected (NotDetected); Enterotoxigenic E.coli (ETEC) Not Detected (NotDetected); Giardia lamblia PCR Not Detected (NotDetected); Norovirus GI/GII PCR Not Detected (NotDetected); Plesiomonas shigelloides PCR Not Detected (NotDetected); Rotavirus A PCR Not Detected (NotDetected); Salmonella PCR Not Detected (NotDetected); Sapovirus PCR Not Detected (NotDetected); Shiga-like Toxin E.coli (STEC) Not Detected (NotDetected); Shigella/Enteroinvasive E.coli Not Detected (NotDetected); Vibrio cholerae PCR Not Detected (NotDetected); Vibrio species PCR Not Detected (NotDetected); Yersinia enterocolitica PCR Not Detected (NotDetected)
[2023-08-08] MEDS: ACETAMINOPHEN 500 MG TAB PO PRN (11:51)
--- NOTE | 2023-08-08 14:03 | Hospitalist Progress Note ---
Date of Service August 08, 2023 Assessment & Plan (1) Severe sepsis: Plan: 62-year-old lady with PMH of HTN, HLD, chronic lymphedema, JUAN not on CPAP, T2DM insulin requiring, NAFLD cirrhosis, chronic anemia [baseline hemoglobin 10-11], chronic thrombocytopenia, rosacea on doxycycline who presents with recurrent RLE cellulitis and sepsis. 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 No chest pain or shortness of breath. She is being managed for the following: RLE cellulitis Severe sepsis POA: likely 2/2 above. Temperature, pulse rate, respiratory rate, WBC elevated at presentation. Procalcitonin and lactate elevated at presentation. Lactate trended down with IVF. Patient coming in with worsening swelling of RLE associated with erythema, noted to have RLE cellulitis at presentation. Patient does have history of recurrent RLE cellulitis and sepsis. Admitting CT head and CXR with no acute finding. Admitting CT and MRI RLE: No abscess. No osteomyelitis. Suggestive of cellulitis. Admitting RLE venous Doppler negative for DVT. Respiratory pathogen panel negative. Stool PCR negative. UA negative for infection. Patient started on cefepime 5/6, daptomycin 5/5. Continue. Obtain baseline CPK level. Hold home statin. Patient reports feeling better clinically, temperature is getting better, WBC downtrending. ID consult given recurrent RLE cellulitis and sepsis. Follow admitting blood culture. Diarrhea: Present at admission. Stool PCR negative -C. difficile ruled out. Admitting CTAP with chronic findings of cirrhosis/varices. ? cystitis but no UTI on UA. No hydronephrosis. Added psyllium fiber, probiotic, follow clinically. Monitor replete electrolytes. Acute kidney injury over CKD stage III: Baseline creatinine around 1, admitting creatinine of 1.47. Hold home diuretic and GEOVANNY inhibitor until creatinine back to baseline. Status post IV fluid, creatinine improving. Labs in AM. Other chronic medical conditions: Continue with/resume home meds as and when able. hypertension, stable Transient hypoxemia at the ER likely from untreated JUAN, will get nocturnal pulse ox while in here. DM 2 insulin requiring, well-controlled as of recent hemoglobin A1c of 6 2 months ago. Sliding scale insulin while in here. hx NAFLD cirrhosis no overt decompensation chronic anemia, hemoglobin at baseline chronic thrombocytopenia secondary to liver disease PT OT eval once medically stable DVT prophylaxis: With SCDs given thrombocytopenia Full code Patient's sons Mr. Esvin Lewis, contact #[phone]. Mr. Merrick Lewis, contact #[phone]. Text document was generated using [employer]ck[employer] voice recognition software. It may contain grammatical or spelling errors. Kindly contact undersigned for clarification of any documentation item in question. Admission and Anticipated Discharge Date Admission Date: August 07, 2023 Subjective Patient was seen and examined at bedside. Patient was lying in bed, on room air, resting comfortably, NAD. Patient reports improvement in her nausea and vomiting, patient reports chronic baseline abdominal pain. Patient still has loose stools, stool PCR negative for infection, psyllium and probiotic added. Follow clinically. Patient reports feeling better. Physical Exam Physical Exam: GENERAL: Comfortable, morbidly obese, no respiratory distress SKIN: Pallor, warm HEENT: Pale palpebral conjunctivae, no ptosis, moist buccal mucosa, nasal ca nnula in place NECK : Supple, short neck, no tenderness CHEST : Decreased breath sounds, no tenderness HEART : RRR, no obvious murmurs ABDOMEN: distention, nontender EXTREMITIES : Bilateral LE chronic lymphedema noted, RLE induration with minimal tenderness, no other conspicuous deformities noted NEUROLOGIC : Coherent, no facial asymmetry, gait and stance not assessed Results & Data Results & Data Vital Signs (Past 12 Hours) Vital Signs Temp Pulse Resp BP Pulse Ox O2 Del Method O2 Flow Rate 08/08/23 10:27 83 18 130/55 L 97 Room Air 08/08/23 09:03 36.7 C 90 17 130/60 96 Room Air 08/08/23 07:44 75 18 95/44 L 99 Nasal Cannula 3 08/08/23 06:22 36.9 C 78 16 111/57 L 100 Nasal Cannula 3
[2023-08-08] MEDS: ADVANCED PROBIOTIC 625 MG CAPSULE PO SCH (17:02)
[2023-08-08] MEDS: THIAMINE HCL 100 MG TAB PO SCH (17:02)
[2023-08-08] MEDS: PSYLLIUM or GUAR GUM FIBER 4GM PACKET PO SCH (17:02)
--- NOTE | 2023-08-08 22:02 | Electrocardiogram Report ---
Test Reason : Blood Pressure : / mmHG Vent. Rate : 096 BPM Atrial Rate : 096 BPM P-R Int : 174 ms QRS Dur : 136 ms QT Int : 432 ms P-R-T Axes : 047 050 035 degrees QTc Int : 545 ms Normal sinus rhythm Right bundle branch block Abnormal ECG When compared with ECG of 08-JUL-2023 22:33, No significant change was found Confirmed by Ferny Menard ([id number]) on 08/08/2023 10:01:52 PM Referred By: REFERRED SELF Confirmed By:Ferny Menard
[2023-08-09 05:54] LABS: Calcium 8.3 mg/dl (8.6-10.3); Magnesium 1.9 mg/dl (1.7-2.4)
[2023-08-09 05:58] LABS: Hematocrit (blood only) 27.3 % (37.0-47.0); Hemoglobin 9.3 g/dl (12.0-16.0); Mean Corpuscular Hemoglobin 31.3 pg (25.0-34.0); Mean Corpuscular Hgb Conc 34.1 g/dL (32.0-36.0); Mean Corpuscular Volume 91.9 fL (80.0-100.0); Mean Platelet Volume 10.3 fL (9.4-12.4); Platelet Count 47 K/uL (130-400); RDW Coefficient of Variation 14.6 % (11.5-14.5); RDW Standard Deviation 49.4 fL (36.4-46.3); Red Blood Count 2.97 M/uL (4.20-5.40); White Blood Count 6.46 K/ul (4.8-10.8)
[2023-08-09 06:00] LABS: Creatinine Clr Calc Pharmacy 72.7 ml/min; Est GFR (African American) 62.8 ml/min; Est GFR (Non-African American) 54.2 ml/min; Phosphorus 2.9 mg/dl (2.5-4.9)
[2023-08-09] MEDS: LOPERAMIDE HCL 2 MG CAP PO PRN (12:56)
[2023-08-09] MEDS ORDERED: EUCERIN CR 120 GM JAR EXT PRN (13:33)
--- NOTE | 2023-08-09 15:57 | Hospitalist Progress Note ---
Date of Service August 09, 2023 Assessment & Plan (1) Severe sepsis: Plan: 62-year-old lady with PMH of HTN, HLD, chronic lymphedema, JUAN not on CPAP, T2DM insulin requiring, NAFLD cirrhosis, chronic anemia [baseline hemoglobin 10-11], chronic thrombocytopenia, rosacea on doxycycline who presents with recurrent RLE cellulitis and sepsis. 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 No chest pain or shortness of breath. She is being managed for the following: RLE cellulitis Severe sepsis POA: likely 2/2 above. Temperature, pulse rate, respiratory rate, WBC elevated at presentation. Procalcitonin and lactate elevated at presentation. Lactate trended down with IVF. Patient coming in with worsening swelling of RLE associated with erythema, noted to have RLE cellulitis at presentation. Patient does have history of recurrent RLE cellulitis and sepsis. Admitting CT head and CXR with no acute finding. Admitting CT and MRI RLE: No abscess. No osteomyelitis. Suggestive of cellulitis. Admitting RLE venous Doppler negative for DVT. Respiratory pathogen panel negative. Stool PCR negative. UA negative for infection. Patient started on cefepime 08/07, daptomycin /. Continue. 08/08 CPK 241. Hold home statin. Repeat CPK in 2-3 days. Patient reports feeling better clinically, temperature is getting better, WBC downtrending. ID consult given recurrent RLE cellulitis and sepsis. Follow admitting blood culture. Diarrhea: Present at admission. Stool PCR negative -C. difficile ruled out. Admitting CTAP with chronic findings of cirrhosis/varices. ? cystitis but no UTI on UA. No hydronephrosis. Added psyllium fiber, probiotic, imodium follow clinically. Monitor replete electrolytes. Acute kidney injury over CKD stage III: Baseline creatinine around 1, admitting creatinine of 1.47. Hold home diuretic and GEOVANNY inhibitor until creatinine back to baseline and until diarrhea resolves. Status post IV fluid, creatinine improved. Labs in AM. Other chronic medical conditions: Continue with/resume home meds as and when able. hypertension, stable Transient hypoxemia at the ER likely from untreated JUAN, will get nocturnal pulse ox while in here. DM 2 insulin requiring, well-controlled as of recent hemoglobin A1c of 6 2 mo nths ago. Sliding scale insulin while in here. hx NAFLD cirrhosis no overt decompensation chronic anemia, hemoglobin at baseline chronic thrombocytopenia secondary to liver disease PT OT eval once medically stable DVT prophylaxis: With SCDs given thrombocytopenia Full code Patient's sons Mr. Esvin Lewis, contact #[phone]. Mr. Merrick Lewis, contact #[phone]. Text document was generated using [employer] voice recognition software. It may contain grammatical or spelling errors. Kindly contact undersigned for clarification of any documentation item in question. Admission and Anticipated Discharge Date Admission Date: August 07, 2023 Subjective Patient was seen and examined at bedside. Patient was lying in bed, on room air, resting comfortably, NAD. Patient reports no nausea and vomiting, patient reports chronic baseline a bdominal pain. Patient still has loose stools, stool PCR negative for infection, psyllium and probiotic was added. will add imodium prn. follow clinically. Patient reports feeling better. Physical Exam Physical Exam: GENERAL: Comfortable, morbidly obese, no respiratory distress SKIN: Pallor, warm HEENT: Pale palpebral conjunctivae, no ptosis, moist buccal mucosa, nasal cannula in place NECK : Supple, short neck, no tenderness CHEST : Decreased breath sounds, no tenderness HEART : RRR, no obvious murmurs ABDOMEN: distention, nontender EXTREMITIES : Bilateral LE chronic lymphedema noted, RLE induration with minimal tenderness, no other conspicuous deformities noted NEUROLOGIC : Coherent, no facial asymmetry, gait and stance not assessed Results & Data Results & Data Vital Signs (Past 12 Hours) Vital Signs Temp Pulse Pulse Resp BP Pulse Ox O2 Del Method 08/09/23 15:23 75 08/09/23 14:48 37.3 C 71 20 108/65 94 Room Air 08/09/23 11:34 36.8 C 76 20 131/71 99 Room Air 08/09/23 08:15 Room Air 08/09/23 07:42 37.2 C 74 18 103/63 97 Room Air 08/09/23 07:04 72
[2023-08-09] MEDS: AMMONIUM LACTATE 12% LOTION 225 GM BTL EXT PRN (20:23)
[2023-08-09] MEDS: MICONAZOLE NITRATE POWDER 85 GM EXT PRN (20:24)
[2023-08-10 08:23] LABS: Mean Corpuscular Hemoglobin 31.7 pg (25.0-34.0); Mean Corpuscular Hgb Conc 33.3 g/dL (32.0-36.0); Mean Corpuscular Volume 95.2 fL (80.0-100.0); Mean Platelet Volume 9.6 fL (9.4-12.4); Platelet Count 51 K/uL (130-400); RDW Coefficient of Variation 14.6 % (11.5-14.5); RDW Standard Deviation 51.1 fL (36.4-46.3); Red Blood Count 3.15 M/uL (4.20-5.40); White Blood Count 5.97 K/ul (4.8-10.8)
[2023-08-10 09:01] LABS: BUN Creatinine Ratio 22.1 (10-20); Calcium 8.6 mg/dl (8.6-10.3); Creatinine Clr Calc Pharmacy 82.8 ml/min; Est GFR (African American) 73.4 ml/min; Est GFR (Non-African American) 63.3 ml/min; Magnesium 1.8 mg/dl (1.7-2.4); Phosphorus 2.8 mg/dl (2.5-4.9); Potassium 3.3 mmol/L (3.5-5.1)
[2023-08-10] MEDS: LOPERAMIDE HCL 2 MG CAP PO SCH (10:15)
--- NOTE | 2023-08-10 15:54 | Hospitalist Progress Note ---
Date of Service August 10, 2023 Assessment & Plan (1) Severe sepsis: Plan: 62-year-old lady with PMH of HTN, HLD, chronic lymphedema, JUAN not on CPAP, T2DM insulin requiring, NAFLD cirrhosis, chronic anemia [baseline hemoglobin 10-11], chronic thrombocytopenia, rosacea on doxycycline who presents with recurrent RLE cellulitis and sepsis. 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 No chest pain or shortness of breath. She is being managed for the following: RLE cellulitis Severe sepsis POA: likely 2/2 above. Temperature, pulse rate, respiratory rate, WBC elevated at presentation. Procalcitonin and lactate elevated at presentation. Lactate trended down with IVF. Patient coming in with worsening swelling of RLE associated with erythema, noted to have RLE cellulitis at presentation. history of recurrent RLE cellulitis and sepsis. Admitting CT head and CXR with no acute finding. Admitting CT and MRI RLE: No abscess. No osteomyelitis. Suggestive of cellulitis. Admitting RLE venous Doppler negative for DVT. Respiratory pathogen panel negative. Stool PCR negative. UA negative for infection. Patient started on cefepime 5/6, daptomycin 5/. Continue. 08/08 CPK 241. Hold home statin. Repeat CPK in 2-3 days. Patient reports feeling better clinically, temperature is getting better, WBC downtrending. ID consult given recurrent RLE cellulitis and sepsis. Follow admitting blood culture. Diarrhea: Present at admission. Stool PCR negative -C. difficile ruled out. Admitting CTAP with chronic findings of cirrhosis/varices. ? cystitis but no UTI on UA. No hydronephrosis. Added psyllium fiber, probiotic, imodium follow clinically. Monitor replete electrolytes. Acute kidney injury over CKD stage III: Baseline creatinine around 1, admitting creatinine of 1.47. Hold home diuretic and GEOVANNY inhibitor until creatinine back to baseline and until diarrhea resolves. Status post IV fluid, creatinine improved. Labs in AM. Other chronic medical conditions: Continue with/resume home meds as and when able. hypertension, stable DM 2 insulin requiring, well-controlled as of recent hemoglobin A1c of 6 2 months ago. Sliding scale insulin while in here. hx NAFLD cirrhosis no overt decompensation chronic anemia, hemoglobin at baseline chronic thrombocytopenia secondary to liver disease PT OT ordered DVT prophylaxis: With SCDs given thrombocytopenia Full code Patient's sons Mr. Esvin Lewis, contact #[phone]. Mr. Merrick Lewis, contact #[phone]. Text document was generated using [employer] voice recognition software. It may contain grammatical or spelling errors. Kindly contact undersigned for clarification of any documentation item in question. Admission and Anticipated Discharge Date Admission Date: August 07, 2023 Subjective Reports multiple episode of diarrhea overnight and in a.m. Continues to her right lower extremity pain and swelling Review of Systems Review of Systems: All systems reviewed & are unremarkable except as noted in Subjective Physical Exam Physical Exam: GENERAL: Comfortable, morbidly obese, no respiratory distress SKIN: Pallor, warm HEENT: Pale palpebral conjunctivae, no ptosis, moist buccal mucosa, nasal cannula in place NECK : Supple, short neck, no tenderness CHEST : Decreased breath sounds, no tenderness HEART : RRR, no obvious murmurs ABDOMEN: distention, nontender EXTREMITIES : Bilateral LE chronic lymphedema noted, RLE induration with minimal tenderness, no other conspicuous deformities noted NEUROLOGIC : Coherent, no facial asymmetry, gait and stance not assessed Results & Data Results & Data Vital Signs (Past 12 Hours) Vital Signs Temp Pulse Resp BP Pulse Ox O2 Del Method 08/10/23 15:24 36.8 C 76 18 133/66 100 Room Air 08/10/23 11:22 37.0 C 72 18 113/63 100 Room Air 08/10/23 08:00 Room Air 08/10/23 07:47 37.1 C 72 18 117/62 95 Room Air
--- NOTE | 2023-08-10 17:37 | Infectious Disease Consult ---
Date of Service August 10, 2023 Telehealth Information I performed this visit using a real-time telehealth connection between my location and the patients location ([facility]). 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 My office door was closed and no one else was present in the room with me.Patient (or authorized healthcare electroplating sales representative) provided consent to proceed with the visit, expressed an understanding of privacy and security of the telemedicine visit, and gave permission to have a hospital electroplating sales representative in the room in order to assist with the visit and to conduct portions of the visit, as needed. I informed the patient (or authorized healthcare electroplating sales representative) that I reviewed their record and presented the opportunity for them to ask any questions regarding the visit today. The patient agreed to participate. Assessment & Plan (1) Cellulitis of right leg: Plan 1. Check routine stool studies with regional parasite screen (if not already done) 2. If there is clinical concern for septic arthritis or a necrotizing infection, consult Surgery 3. Consider de-escalating to Ancef monotherapy (dosed per your institutions guidelines) 4. If the patient improves on Ancef, consider transitioning to PO Keflex at discharge 5. Once the patient completes about 7 days (assuming that the cellulitis resolves), cut dose of Keflex back to suppression dosing and continue it for 4-6 weeks at which time the patient can see ID in clinic and decide if she wants to continue it COMMENT(S): ID is signing off. Contact us for any new issues. If any testing finalizes after ID signs off, forward the results (ID is not automatically notified). REVENUE MANAGEMENT: I spent a total of 60 minutes coordinating, documenting, andproviding care for this patient excluding time spent in performance ofseparately billed services. History of Present Illness History of Present Illness CLINICAL TEAM: Infectious Diseases Team 4 HISTORY OF PRESENT ILLNESS: The patient was admitted for nausea and vomiting (in the context of previous episodes of cellulitis than began similarly). Workup revealed LE swelling with dermal thickening on CT (but no abscess or gas). Subsequent MRI was negative for OM. BCX were negative. Allergies Allergy/AdvReac Type Severity Reaction Status Date / Time Sulfa (Sulfonamide Allergy Intermediate SWELLING, Verified 08/07/23 20:05 Antibiotics) HIVES empagliflozin AdvReac Severe Vaginal Verified 08/07/23 20:05 [From Jardiance] irritation Home Medications Medication Instructions Recorded Confirmed Type pravastatin 40 mg tablet 40 mg PO HS 05/26/18 08/07/23 History ramipril 5 mg capsule 5 mg PO QAM 04/20/20 08/07/23 History insulin glargine 100 unit/mL (3 40 unit (0.4 mL) subcut BID #15 mL 04/25/20 08/07/23 Rx mL) subcutaneous pen (Basaglar KwikPen U-100 Insulin) triamcinolone acetonide 0.1 % 1 applic topical DAILY PRN Rash 05/01/22 08/07/23 History topical cream metformin 500 mg tablet,extended 1,000 mg PO DAILY 05/14/22 08/07/23 History release 24 hr clobetasol 0.05 % topical ointment 1 applic topical BID PRN Rash 06/25/23 08/07/23 History doxycycline hyclate 50 mg capsule 0 mg PO BID Rosacea 06/25/23 08/07/23 History tacrolimus 0.1 % topical ointment 1 applic topical BID 06/25/23 08/07/23 History buspirone 7.5 mg tablet 7.5 mg PO BID #60 tabs 06/30/23 08/07/23 Rx cefdinir 300 mg capsule 300 mg PO BID #10 caps 07/14/23 08/07/23 Rx potassium chloride 20 mEq 20 meq PO BID #60 tabs 07/14/23 08/07/23 Rx tablet,extended release(part/cryst) furosemide 40 mg tablet 40 mg PO BID 08/07/23 08/07/23 History Patient History Medical History Nausea, vomiting and diarrhea Hyperlipidemia Lymphedema Sleep apnea Rosacea Morbid obesity Cirrhosis Peripheral neuropathy Spleen enlargement Chronic kidney disease STAGE 2 History of asthma Thrombocytopenia HTN (hypertension) DM type 2 (diabetes mellitus, type 2) Surgical History History of tooth extraction History of cataract surgery RT/LEFT H/O dilation and curettage History of hysteroscopy S/P cholecystectomy Family History Sister Cervical cancer Mother Liver disease Other No family history of adverse response to anesthesia Social History Smoking Status: Unknown if ever smoked Second Hand Exposure: No; Do You Dip or Chew Tobacco: No; Tobacco Cessation Education Requested by Patient: No Hx Alcohol Use: No Hx Substance Use: No Preferred Language: Slovak Communication Ability: Effective Visual Impairment: No Limitations Hearing Ability: Normal Family Development Extension Specialist Required: No Beliefs That Will Affect Care: None Current Living Situation: Alone Other Information That Helps Us Care for You: No Feels Safe at Home: Yes Safety Concerns: Feels Safe At This Time Assistive Devices: Cane and Walker Review of Systems As per HPI, otherwise negative. Physical Exam Vitals: as above (or see EMR) Exam limited due to constraints of telemedicine Gen/Constitutional: appears at stated age, NAD, nontoxic Head: AT, NC Eyes: sclera anicteric, no conjunctival injection ENT: MMM, trachea midline Card: appears to be well-perfused Resp: not tachypneic, nml effort, symmetric chest rise, no accessory muscle use Derm: no visible diaphoresis, no visible rash, no visible jaundice Results & Data Vital Signs (Past 12 Hours) Vital Signs Temp Pulse Resp BP Pulse Ox O2 Del Method 08/10/23 15:24 36.8 C 76 18 133/66 100 Room Air 08/10/23 11:22 37.0 C 72 18 113/63 100 Room Air 08/10/23 08:00 Room Air 08/10/23 07:47 37.1 C 72 18 117/62 95 Room Air Laboratory Results SEE EMR Diagnostic Findings SEE EMR
[2023-08-11] MEDS: ceFAZolin 2000MG 2,000 MG/15 ML SYR IV SCH (08:21)
[2023-08-11] MEDS: oxyCODONE HCL IR 5 MG TAB (IMMEDIATE RELEASE) PO PRN (09:08)
[2023-08-11] MEDS ORDERED: LOPERAMIDE HCL 2 MG CAP PO PRN (14:42)
--- NOTE | 2023-08-11 14:47 | Hospitalist Progress Note ---
Date of Service August 11, 2023 Assessment & Plan (1) Severe sepsis: Plan: 62-year-old lady with PMH of HTN, HLD, chronic lymphedema, JUAN not on CPAP, T2DM insulin requiring, NAFLD cirrhosis, chronic anemia [baseline hemoglobin 10-11], chronic thrombocytopenia, rosacea on doxycycline who presents with recurrent RLE cellulitis and sepsis. 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 No chest pain or shortness of breath. She is being managed for the following: RLE cellulitis Severe sepsis POA: likely 2/2 above. Temperature, pulse rate, respiratory rate, WBC elevated at presentation. Procalcitonin and lactate elevated at presentation. Lactate trended down with IVF. Patient coming in with worsening swelling of RLE associated with erythema, noted to have RLE cellulitis at presentation. history of recurrent RLE cellulitis and sepsis. Admitting CT head and CXR with no acute finding. Admitting CT and MRI RLE: No abscess. No osteomyelitis. Suggestive of cellulitis. Admitting RLE venous Doppler negative for DVT. Respiratory pathogen panel negative. Stool PCR negative. UA negative for infection. Patient started on cefepime 5/6, daptomycin 5/. Continue. 08/08 CPK 241. Hold home statin. Repeat CPK in 2-3 days. Patient reports feeling better clinically, temperature is getting better, WBC downtrending. ID consult given recurrent RLE cellulitis and sepsis. Recommend cefazolin and p.o. Keflex at discharge. Also recommend to cut back Keflex back to suppression dosing and continue for 4 to 6-week to see ID As outpatient Diarrhea: Present at admission. Stool PCR negative -C. difficile ruled out. Admitting CTAP with chronic findings of cirrhosis/varices. ? cystitis but no UTI on UA. No hydronephrosis. Added psyllium fiber, probiotic, imodium follow clinically. Monitor replete electrolytes. Acute kidney injury over CKD stage III: Baseline creatinine around 1, admitting creatinine of 1.47. Hold home diuretic and GEOVANNY inhibitor until creatinine back to baseline and until diarrhea resolves. Status post IV fluid, creatinine improved. Labs in AM. Other chronic medical conditions: Continue with/resume home meds as and when able. hypertension, stable DM 2 insulin requiring, well-controlled as of recent hemoglobin A1c of 6 2 months ago. Sliding scale insulin while in here. hx NAFLD cirrhosis no overt decompensation chronic anemia, hemoglobin at baseline chronic thrombocytopenia secondary to liver disease PT OT ordered-Recommend home. Patient continues to be hospitalized for need of IV antibiotic for right lower extremity cellulitis DVT prophylaxis: With SCDs given thrombocytopenia Full code Patient's sons Mr. Esvin Lewis, contact #[phone]. Mr. Merrick Lewis, contact #[phone]. Text document was generated using [employer] voice recognition software. It may contain grammatical or spelling errors. Kindly contact undersigned for clarification of any documentation item in question. Admission and Anticipated Discharge Date Admission Date: August 07, 2023 Subjective Patient reports that her diarrhea has resolved She reports that the redness and swelling in the legs have improved compared to yesterday Review of Systems Review of Systems: All systems reviewed & are unremarkable except as noted in Subjective Physical Exam Physical Exam: GENERAL: Comfortable, morbidly obese, no respiratory distress SKIN: Pallor, warm HEENT: Pale palpebral conjunctivae, no ptosis, moist buccal mucosa, nasal cannula in place NECK : Supple, short neck, no tenderness CHEST : Decreased breath sounds, no tenderness HEART : RRR, no obvious murmurs ABDOMEN: distention, nontender EXTREMITIES : Bilateral LE chronic lymphedema noted, RLE induration with minimal tenderness, no other conspicuous deformities noted NEUROLOGIC : Coherent, no facial asymmetry, gait and stance not assessed Results & Data Results & Data Vital Signs (Past 12 Hours) Vital Signs Temp Pulse Pulse Resp BP BP Pulse Ox 08/11/23 14:40 37.2 C 68 18 112/68 99 08/11/23 12:47 36.9 C 70 18 116/64 93 08/11/23 08:45 36.6 C 72 18 122/65 94 08/11/23 07:43 08/11/23 07:00 71 08/11/23 03:58 37.1 C 72 18 112/68 99 O2 Del Method 08/11/23 14:40 Room Air 08/11/23 12:47 Room Air 08/11/23 08:45 Room Air 08/11/23 07:43 Room Air 08/11/23 07:00 08/11/23 03:58 Room Air
[2023-08-11] MEDS: PRAVASTATIN SOD 40 MG TAB PO SCH (20:32)
--- NOTE | 2023-08-12 11:41 | Discharge Summary ---
Date of Service August 12, 2023 Admission HPI Per Admitting Provider History obtained from patient, family, and records. Medical history significant for hypertension, hyperlipidemia, chronic lymphedema, JUAN not on CPAP, DM 2 insulin requiring, NAFLD cirrhosis, chronic anemia (baseline hemoglobin 10-11), chronic thrombocytopenia, rosacea on doxycycline Monthly confinements since May 2023. Recent confinement last month for sepsis secondary to RLE cellulitis and fluid overload. No growth on cultures. Patient discharged on cefdinir course. 2 days ago, patient noted worsening swelling of right leg again. No recent trauma. Achy abdominal pain with nausea, vomiting, watery diarrhea. No chest pain, no SOB. Daptomycin and cefepime administered at the ER. Transient hypoxemia witnessed by ED nurse when patient dozed off at the ER. MEDICAL HISTORY: As above. SURGERIES: She has had gynecologic procedures, cholecystectomy, cataract surgeries FAMILY HISTORY: Hypertension, cirrhosis secondary to fatty liver disease, throat cancer, Parkinson's disease PERSONAL SOCIAL HISTORY: Nonsmoker, no chronic intake of alcoholic beverages, disabled. Admission Exam Per Admitting Provider GENERAL: Comfortable, morbidly obese, no respiratory distress SKIN: Pallor, warm HEENT: Pale palpebral conjunctivae, no ptosis, dry buccal mucosa, nasal cannula in place NECK : Supple, short neck, no tenderness CHEST : Decreased breath sounds, no tenderness HEART : RRR, no obvious murmurs ABDOMEN: distention, nontender EXTREMITIES : Bilateral LE swelling, RLE induration with minimal tenderness, no other conspicuous deformities noted NEUROLOGIC : Coherent, no facial asymmetry, gait and stance not assessed Principal Diagnosis Sepsis POA Right lower leg cellulitis Discharge Exam GENERAL: Comfortable, morbidly obese, no respiratory distress SKIN: Pallor, warm HEENT: Pale palpebral conjunctivae, no ptosis, moist buccal mucosa, nasal cannula in place NECK : Supple, short neck, no tenderness CHEST : Decreased breath sounds, no tenderness HEART : RRR, no obvious murmurs ABDOMEN: distention, nontender EXTREMITIES : Bilateral LE chronic lymphedema noted, RLE induration with minimal tenderness, no other conspicuous deformities noted . Improvement in the cellulitis noted NEUROLOGIC : Coherent, no facial asymmetry, gait and stance not assessed Discharge Data Allergies Allergy/AdvReac Type Severity Reaction Status Date / Time Sulfa (Sulfonamide Allergy Intermediate SWELLING, Verified 08/07/23 20:05 Antibiotics) HIVES empagliflozin AdvReac Severe Vaginal Verified 08/07/23 20:05 [From Jardiance] irritation Consultations 08/07/23 21:57 ED Decision to Admit Stat 08/08/23 14:24 Consult Infectious Diseases Routine Ordered Studies 08/07/23 19:38 CT abd pelvis IV con only Stat CT head/brain wo con Stat CT leg [CT tib/fib RT w con] Stat 08/07/23 23:07 US venous doppler LE RT Stat 08/08/23 00:06 MR lower leg RT wo/w con Routine Hospital Course (1) Severe sepsis: 62-year-old lady with PMH of HTN, HLD, chronic lymphedema, JUAN not on CPAP, T2DM insulin requiring, NAFLD cirrhosis, chronic anemia [baseline hemoglobin 10-11], chronic thrombocytopenia, rosacea on doxycycline who presents with recurrent RLE cellulitis and sepsis. Patient noted worsening swelling of RLE 2 days ago [employer], no recent trauma, reports associated nausea/vomiting/watery diarrhea. No chest pain or shortness of breath. She Was managed for following condition during the hospitalization: RLE cellulitis Severe sepsis POA: likely 2/2 above. Temperature, pulse rate, respiratory rate, WBC elevated at presentation. Procalcitonin and lactate elevated at presentation. Lactate trended down with IVF. Patient coming in with worsening swelling of RLE associated with erythema, noted to have RLE cellulitis at presentation. history of recurrent RLE cellulitis and sepsis. Admitting CT head and CXR with no acute finding. Admitting CT and MRI RLE: No abscess. No osteomyelitis. Suggestive of cellulitis. Admitting RLE venous Doppler negative for DVT. Respiratory pathogen panel negative. Stool PCR negative. UA negative for infection. During the hospitalization, patient was treated with IV antibiotics during the hospitalization. Infectious disease was consulted as patient had recurrent cellulitis on right lower extremity. The recommended Keflex for 1 week. After completion of 1 week of full dose Keflex; recommend suppressive dosing of twice a day for the next 4 to 6 weeks. I discussed with patient to follow-up with her primary care doctor to be prescribed suppressive dosing of Keflex. She also have infectious disease follow-up set up in 6 weeks. Discussed using compression stockings to help with the lymphedema. She verbalized understanding. Her dosing of Lasix was decreased down from 40 mg twice a day to 20 mg twice a day as patient reported dehydration on presentation as well as SATHYA Please note the above document was generated using voice recognition software. It may contain grammatical, syntax or spelling errors. Any formal questions or concerns about the content, text or information contained within the body of this dictation should be directly addressed to the provider for clarification. Total Time Total Time Spent Total Time Spent (In Minutes): 35 Total Time Includes: Examination of the Patient, Discharge Planning, Medication Reconciliation, Communication With Other Providers and Other Discharge Plan Discharge Items Patient Disposition: Home - Self-Care Reason For Visit: SEPSIS Discharge Diagnosis: RLE cellulitis Severe sepsis POA Activity: Resume your previous activity Non-emergency contact: Primary Care Provider Call non-emergency contact if: you have any medication questions and your symptoms worsen Follow-up/Referrals: Serene Lopez PA-C [Outside Practitioners] - (Date & Time 08/16/2023 10:00 AM Provider Annelise Kuhn MD Department Family Practice [facility] ) Elvin Reeder MD [Physician] - (Date & Time 09/21/2023 9:00 AM Provider Elvin Reeder MD Department Infectious Disease, [facility] [address] [facility] ) Diet: Regular Addtl Attending Provider Instructions: You were admitted to the hospital due to cellulitis of right lower extremity. Y ou are prescribed Keflex 500 mg 4 times a day for 1 week to complete the antibiotic course. Your evaluated by infectious disease doctor during the hospitalization. He recommended that you are placed on suppression dose of Keflex ( 500mg twice a day) for the next 4 to 6 weeks after you complete 1 week of treatment. Please discuss with your primary care provider to prescribe you suppressive dosing when you follow-up. An appointment has been set up with infectious disease In September 20 to determine whether to continue on suppressive dosing of antibiotics or not. The dose of Lasix has been decreased to 20 mg twice a day from 40 mg twice a day. Doxycycline has been stopped as you will be started on Keflex. Pending Studies at Discharge: No Stand-Alone Forms: My [employer], Smoking Cessation Medications and DC Order Prescriptions: New furosemide [Lasix] 20 mg tablet 20 mg PO BID Qty: 60 0RF Advanced Probiotic 625 mg (10 billion cell) Capsule 2 cap PO DAILY Qty: 180 0RF cephalexin 500 mg capsule 500 mg PO Q6H 7 Days Qty: 28 0RF Continued pravastatin 40 mg tablet 40 mg PO HS ramipril 5 mg capsule 5 mg PO QAM insulin glargine [Basaglar KwikPen U-100 Insulin] 100 unit/mL (3 mL) insulin pen 40 unit subcut BID Qty: 15 0RF Rx Instructions: 40u AM 40u PM triamcinolone acetonide 0.1 % cream 1 applic TOPICAL DAILY PRN (Reason: Rash) Rx Instructions: on right wrist/forearm metformin 500 mg tablet extended release 24 hr 1,000 mg PO DAILY Patient Comments: QAM tacrolimus 0.1 % ointment 1 applic TOPICAL BID Rx Instructions: uses for back of legs and palms clobetasol 0.05 % ointment 1 applic TOPICAL BID PRN (Reason: Rash) Rx Instructions: rash on lower back and wrist buspirone 7.5 mg Tablet 7.5 mg PO BID Qty: 60 0RF potassium chloride 20 mEq Tablet,Er Particles/Crystals 20 meq PO BID Qty: 60 0RF Discontinued doxycycline hyclate 50 mg capsule 0 mg PO BID Rx Instructions: Per patient: "I take the 50mg twice daily for my rosacea on my face, I take 100mg twice daily for my wound care. I only have 2 days left of the 50mg as of 06/25/23. However, since I am on both strengths. I have been taking 150mg by mouth twice daily since 06/20/23. I should be complete with the 100mg by 06/30/23. furosemide 40 mg tablet 40 mg PO BID cefdinir 300 mg Capsule 300 mg PO BID Qty: 10 0RF Discharge Orders: Discharge Order (Routine); Ordered 08/12/23 Ordered By: Thaddeus Johnson Admission Data Admit Date/Time: 08/07/23 23:05 Attending Provider: Thaddeus Johnson Admit Provider: Herman Avila Primary Care Provider: PCP,NO Other Providers: Herman Avila; Ash Navarrete; Sahara Vides; Aravind Dunlap I.; Hector Liz II; Ute Washington; Cameron Harrison; Jemal Yanez; Elvin Reeder; Wei Rowan Other Interventions: Discharge Summary Assessment (RN) Last Done: 08/12/23 11:32
== END 2023-08-12 13:02 | disposition home or self-care (01) | DRG 872 ==
LOC: ED 18:49 → EDINP 23:05 → SUATTDRO 23:05 → 2N 23:40

== ENCOUNTER 2023-11-12 16:26 | Observation (INO) ==
--- NOTE | 2023-11-12 16:34 | Emergency Department Note ---
Impression & Plan Sepsis, Abdominal pain, Cellulitis ED Provider Note NAME: KOSTAS CHAND AGE: 63 SEX: F : 1960 ARRIVES VIA: Ambulance INFORMANT: Patient ED PROVIDER(S): Coy Fajardo DO CHIEF COMPLAINT: fever, N/V/D HPI: Patient is a 63-year-old female with a past medical history of cirrhosis, sepsis, cellulitis, gastroenteritis and thrombocytopenia who presents to the ER for fever, nausea, vomiting and diarrhea. Patient notes everything started around 4 AM this morning. She started with nausea, vomiting, and diarrhea. She has been unable to keep any down. She admits to diffuse abdominal pain periumbilically which radiates up into the chest. This has been constant constantly since then. She admits to a cough. No dysuria, urgency or frequency. No other exacerbating or remitting factors. ADDITIONAL HISTORY OBTAINED: Per HPI Chronic Medical/Social Conditions Affecting Care: Per HPI PAST MEDICAL HISTORY:See Below PAST SURGICAL HISTORY:See Below FAMILY HISTORY:See Below SOCIAL HISTORY:See Below HOME MEDICATIONS:See Below ALLERGIES:See Below VITALS:See Below PHYSICAL EXAMINATION: GENERAL: Sitting up in bed, alert, well appearing, well nourished, no distress, non-toxic EYE EXAM: normal conjunctiva. PERRL and EOM's grossly intact. OROPHARYNX: no exudate, no erythema, lips, buccal mucosa, and tongue normal and mucous membranes are moist NECK: supple, no nuchal rigidity, no adenopathy, non-tender LUNGS: Clear to auscultation. Normal chest wall mechanics HEART: no murmurs, S1 normal and S2 normal ABDOMEN: abdomen soft, non-tender, normo-active bowel sounds, no masses, no rebound or guarding. BACK: Back is symmetrical on inspection and there is no deformity, no midline tenderness, no CVA tenderness. SKIN: no rashes and no bruising UPPER EXTREMITIES: upper extremities are grossly normal. LOWER EXTREMITIES: Right lower extremity with erythema swelling and is warm and tender to palpation over the right calf tracking up to the knee NEURO EXAM: Normal sensorium, cranial nerves II-XII grossly intact, normal speech, no gross weakness of arms, no gross weakness of legs. MEDICAL DECISION MAKING: Patient is a 63-year-old female who presents ER with a past medical history of cirrhosis, and sepsis for fever, nausea vomiting diarrhea. IV was established blood work was obtained. She found to be febrile. Labs show no significant leukocytosis. Mild anemia 10. BMP with a thrombocytopenia at 75 down from 100. Lactic acid was 1.9. T. bili at 1.7. Mag 1.6. LFTs was unremarkable. Pro- Juan David was negative. UA was unremarkable. CT abdomen pelvis showed no acute pathologies. Chest x-ray was clean. Patient was given IV Rocephin as I do feel this consistent with cellulitis as well as IV fluids. Updated bedside. She is given oral Tylenol. Discussed with the hospitalist for further evaluation management treatment. Consults/Care Managements Discussions: Per [facility] Triage Nursing notes reviewed. Limited review of prior medical records performed Vital Signs: reviewed and remarkable for no significant abnormalities Differential diagnosis: Cellulitis, abscess, MRSA infection, DVT, necrotizing fasciitis, dermatitis, drug eruption, allergic reaction, as well as other pathologies. ER treatment provided: See below Diagnostics interpreted by me include EKG and cardiac monitoring as listed below: -Cardiac Monitoring: An order was placed for continuous cardiac monitoring. The monitor shows a rate of 90 with sinus rhythm. -ECG: none -Laboratory studies:Interpreted by me as stated above in MDM and shown below. Imaging studies: Xrays: As interpreted by me: Portable AP upright 1 view of the chest shows no focal infiltrate CTs show: CT abdomen pelvis shows no acute pathology Procedures:none Critical Care: None Past Med/Surg History Problem List Cellulitis (Acute) Abdominal pain (Acute) Sepsis (Acute) Abdominal pain Lymphedema (Acute) Cirrhosis (Acute) Hypomagnesemia (Acute) Cellulitis of right leg (Acute) Sepsis (Acute) UTI (urinary tract infection) (Acute) Cellulitis of right lower extremity (Acute) Sepsis (Acute) Severe sepsis Viral gastroenteritis Cirrhosis (Chronic) Hyperlipidemia Lymphedema Morbid obesity Anxiety Side effect of medication Diarrhea (Acute) Acute hyperventilation (Acute) Chest pain (Acute) Obesity Diastolic dysfunction Cellulitis of right foot (Acute) Cellulitis of leg, right (Acute) Thrombocytopenia HTN (hypertension) DM type 2 (diabetes mellitus, type 2) (Acute) History of hysteroscopy S/P cholecystectomy (Acute) Medical History SATHYA (acute kidney injury) Nausea, vomiting and diarrhea Sleep apnea Rosacea Peripheral neuropathy Spleen enlargement Chronic kidney disease STAGE 2 History of asthma Surgical History History of tooth extraction History of cataract surgery RT/LEFT H/O dilation and curettage Family History Sister Cervical cancer Mother Liver disease Other No family history of adverse response to anesthesia Social History Smoking Status: Never smoker Second Hand Exposure: No; Do You Dip or Chew Tobacco: No; Hx Alcohol Use: No Hx Substance Use: No Preferred Language: Korean Communication Ability: Effective Visual Impairment: No Limitations Hearing Ability: Normal 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: No Beliefs That Will Affect Care: None Current Living Situation: Alone Feels Safe at Home: Yes Assistive Devices: Cane and Walker Allergies Allergies Allergy/AdvReac Type Severity Reaction Status Date / Time Sulfa (Sulfonamide Allergy Severe ANAPHYLAXIS--SWELLING, Verified 11/12/23 17:35 Antibiotics) HIVES clindamycin Allergy Intermediate HIVES-ER Verified 11/12/23 17:35 VISIT glimepiride Allergy Unknown ON Verified 11/12/23 17:35 [facility] empagliflozin AdvReac Intermediate Vaginal Verified 11/12/23 17:35 [From Anastacia] irritation Home Meds Home Medications Medication Instructions Recorded Confirmed pravastatin 40 mg tablet 40 mg PO HS 05/26/18 11/12/23 triamcinolone acetonide 0.1 % 1 applic topical DAILY PRN Rash 05/01/22 11/12/23 topical cream metformin 500 mg tablet,extended 1,000 mg PO DAILY 05/14/22 11/12/23 release 24 hr clobetasol 0.05 % topical ointment 1 applic topical BID PRN Rash 06/25/23 11/12/23 tacrolimus 0.1 % topical ointment 1 applic topical BID PRN NEEDED 06/25/23 11/12/23 furosemide 40 mg tablet 20 mg PO BID 11/12/23 11/12/23 ketoconazole 2 % topical cream 1 applic topical DIRECTED PRN 11/12/23 11/12/23 RASH UNDER BREASTS/GROIN naproxen 500 mg tablet 500 mg PO BID PRN Pain 11/12/23 11/12/23 ondansetron 4 mg disintegrating 4 mg translingual Q8H PRN 11/12/23 11/12/23 tablet NAUSEA/VOMITING quetiapine 25 mg tablet 25 mg PO HS 11/12/23 11/12/23 Previous Rx's Medication Instructions Recorded insulin glargine 100 unit/mL (3 40 unit (0.4 mL) subcut BID #15 mL 04/25/20 mL) subcutaneous pen (Basaglar KwikPen U-100 Insulin) buspirone 7.5 mg tablet 7.5 mg PO BID #60 tabs 06/30/23 Results & Data (ED) Vital Signs Vital Signs - 24 hr 11/12/23 16:15 11/12/23 16:36 11/12/23 16:39 Temperature 38.1 C H Temperature Source Oral Pulse Rate 89 84 Pulse Rate from SpO2 Sensor 84 Respiratory Rate 24 23 Blood Pressure 124/74 124/74 Blood Pressure Mean 90 97 Pulse Oximetry 98 95 Sepsis Recent Fever Within 48 Hours Yes Sepsis New/Unexplained Change in Mental Status No Sepsis Action Taken by Nursing Physician Notified 11/12/23 16:43 11/12/23 17:15 11/12/23 17:36 Temperature Temperature Source Pulse Rate 94 H 83 82 Pulse Rate from SpO2 Sensor 82 82 Respiratory Rate 31 H 19 Blood Pressure Blood Pressure Mean Pulse Oximetry 95 98 Sepsis Recent Fever Within 48 Hours Sepsis New/Unexplained Change in Mental Status Sepsis Action Taken by Nursing Laboratory Data 11/12/23 16:42 11/12/23 16:42 Lab Results 11/12/23 Range/Units 16:42 WBC 7.83 (4.8-10.8) K/ul RBC 3.27 L (4.20-5.40) M/uL Hgb 10.1 L (12.0-16.0) g/dl Hct 30.8 L (37.0-47.0) % MCV 94.2 (80.0-100.0) fL MCH 30.9 (25.0-34.0) pg MCHC 32.8 (32.0-36.0) g/dL RDW Std Deviation 54.4 H (36.4-46.3) fL RDW Coeff of Melissa 15.6 H (11.5-14.5) % Plt Count 75 L (130-400) K/uL MPV 8.9 L (9.4-12.4) fL Immature Gran % (Auto) 0.4 % Neut % (Auto) 88.5 % Lymph % (Auto) 4.9 % [place] % (Auto) 4.9 % Eos % (Auto) 0.9 % Baso % (Auto) 0.4 % Neut # (Auto) 6.94 H (1.40-6.50) K/uL Lymph # (Auto) 0.38 L (1.20-3.40) K/uL [place] # (Auto) 0.38 (0.11-0.59) K/uL Eos # (Auto) 0.07 (0.00-0.50) K/uL Baso # (Auto) 0.03 (0.00-0.20) K/uL Immature Gran # (Auto) 0.03 (0.01-0.20) K/uL Sodium 137 (136-145) mmol/L Potassium 4.0 (3.5-5.1) mmol/L Chloride 103 (98-107) mmol/L Carbon Dioxide 27 (21-32) mmol/L Anion Gap 7 (3-11) BUN 22 (6-23) mg/dl Creatinine 1.10 (0.6-1.2) mg/dl Est Cr Clr Drug Dosing 69.4 ml/min Est GFR ( Amer) 61.0 ml/min Est GFR (Non-Af Amer) 52.6 ml/min BUN/Creatinine Ratio 20.0 (10-20) Glucose 162 H (70-99(Fasting)) mg/dl Lactate 1.9 (0.4-2.0) mmol/L Calcium 8.6 (8.6-10.3) mg/dl Magnesium 1.6 L (1.7-2.4) mg/dl Total Bilirubin 1.7 H (0.2-1.0) mg/dl Direct Bilirubin 0.7 H (0-0.2) mg/dl AST 25 (13-39) U/L ALT 13 (7-52) U/L Alkaline Phosphatase 123 H (34-104) U/L Troponin I High Sens 4.7 (0-14) pg/ml Total Protein 7.0 (6.0-8.3) gm/dl Albumin 2.9 L (3.4-5.0) gm/dl Procalcitonin 0.06 (0-0.5) ng/ml Urine Color Yellow Urine Appearance Clear (Clear) Urine pH 5.5 (4.5-7.5) Ur Specific [place] 1.010 (1.000-1.030) Urine Protein Negative (Negative) Urine Glucose (UA) Negative (Negative) Urine Ketones Negative (Negative) Urine Blood Trace H (Negative) Urine Nitrite Negative (Negative) Urine Bilirubin Negative (Negative) Urine Urobilinogen Negative (Negative) Ur Leukocyte Esterase Negative (Negative) Urine WBC (Auto) 0-5 (0-5) /hpf Urine RBC (Auto) 0-2 (0-2) /hpf U Hyaline Cast (Auto) 0-2 (0-2) /lpf U Epithel Cells (Auto) 3-5 H (0-2) /hpf Urine Bacteria (Auto) None Seen (None Seen) Adenovirus (PCR) Not Detected (NotDetected) B. pertussis DNA (PCR) Not Detected (NotDetected) B.parapertussis DNA PCR Not Detected (NotDetected) C. pneumoniae DNA (PCR) Not Detected (NotDetected) Coronavirus OC43 (PCR) Not Detected (NotDetected) Coronavirus HKU1 (PCR) Not Detected (NotDetected) Coronavirus 229E (PCR) Not Detected (NotDetected) SARS-CoV-2 (PCR) Not Detected (NotDetected) Coronavirus NL63 (PCR) Not Detected (NotDetected) Human Metapneumovir PCR Not Detected (NotDetected) Influenza Type A (PCR) Not Detected (NotDetected) Influenza Type B (PCR) Not Detected (NotDetected) M. pneumoniae (PCR) Not Detected (NotDetected) Parainfluenza 1 (PCR) Not Detected (NotDetected) Parainfluenza 2 (PCR) Not Detected (NotDetected) Parainfluenza 3 (PCR) Not Detected (NotDetected) Parainfluenza 4 (PCR) Not Detected (NotDetected) RSV (PCR) Not Detected (NotDetected) Entero/Rhino (PCR) Not Detected (NotDetected) Administered Medications Buspirone HCl (Buspirone 7.5 Mg Tab) 7.5 mg PO BID [facility] Stop: 12/12/23 20:59 Last Admin: 11/12/23 22:07 Dose: 7.5 mg Documented By: TENA Sodium Chloride (Nss) 1,000 mls @ 80 mls/hr IV .[id number] [facility] Stop: 11/13/23 08:52 Last Admin: 11/12/23 22:07 Dose: 80 mls/hr Documented By: TENA Insulin Aspart (Insulin Aspart Per Unit Charge) 0 units SC [facility] Stop: 12/12/23 20:59 Last Admin: 11/12/23 22:14 Dose: Not Given Documented By: TENA Pravastatin Sodium (Pravastatin Sod 40 Mg Tab) 40 mg PO [facility] Stop: 12/12/23 20:59 Last Admin: 11/12/23 22:06 Dose: 40 mg Documented By: TENA Quetiapine Fumarate (Quetiapine Fumarate 25 Mg Tablet) 25 mg PO [facility] Stop: 12/12/23 20:59 Last Admin: 11/12/23 22:06 Dose: 25 mg Documented By: TENA Discontinued Medications Acetaminophen (Acetaminophen 325 Mg Tab) 650 mg PO NOW STA Stop: 11/12/23 17:27 Last Admin: 11/12/23 17:35 Dose: 650 mg Documented By: LUDWIG Sodium Chloride (Nss) 1,000 mls @ 999 mls/hr IV .[id number] [facility] Stop: 11/12/23 17:45 Last Infusion: 11/12/23 18:42 Dose: Infused Documented By: Admin: 11/12/23 17:35 Dose: 999 mls/hr Documented By: LUDWIG Ceftriaxone Sodium (Rocephin) 2,000 mg in 50 mls @ 100 mls/hr IV NOW STA Stop: 11/12/23 17:04 Last Infusion: 11/12/23 18:18 Dose: Infused Documented By: Admin: 11/12/23 17:35 Dose: 100 mls/hr Documented By: LUDWIG Magnesium Sulfate/Dextrose (Magnesium Sulfate / D5w) 1 gm in 100 mls @ 50 mls/hr IV ONE ONE Stop: 11/12/23 19:50 Last Admin: 11/12/23 18:04 Dose: 50 mls/hr Documented By: ALS Insulin Glargine (Lantus Per Unit Charge) 20 units SQ BID ONE Stop: 11/12/23 21:01 Last Admin: 11/12/23 22:15 Dose: 20 units Documented By: TENA Co-signed By: JAZZ Imaging Data Radiologist's Impression: Abdomen/Pelvis CT 11/12/23 16:32 CT OF THE ABDOMEN AND PELVIS WITHOUT CONTRAST CLINICAL HISTORY: Abdominal pain, nausea, vomiting and fever. COMPARISON STUDY: CT of the abdomen and pelvis August 07, 2023. TECHNIQUE: Axial images of the abdomen and pelvis were obtained without IV contrast. Images were reviewed in the axial, sagittal, and coronal planes. Automated exposure control was utilized for the study. A dose lowering technique was utilized adhering to the principles of ALARA. FINDINGS: Lung bases are unremarkable. The liver is cirrhotic. No lesions are identified within the liver although sensitivity is diminished on unenhanced exam. There is trace perihepatic ascites. Abdominal and pelvic varices are again noted. Splenomegaly is unchanged. Unenhanced images of the adrenal glands, kidneys and pancreas are unremarkable. There is no hydronephrosis. As before, the left kidney is displaced due to the enlarged spleen. There is no evidence for a bowel obstruction. The appendix is not visualized but there is no right lower quadrant inflammation. There is no abdominal or pelvic lymphadenopathy. No acute fractures are identified within the visualized skeletal structures. A low- attenuation left adnexal lesion is again noted. There are no urinary calculi. There is no biliary ductal dilatation status post cholecystectomy. IMPRESSION: 1. No bowel obstruction. No bowel wall thickening on unenhanced exam. 2. Cirrhotic liver. Manifestations of portal hypertension including splenomegaly, varices formation and trace perihepatic ascites. 3. No urinary calculi or hydronephrosis. ACT 112: Negative or not required by law. Electronically signed by: Jnuior Isaacs M.D. 11/12/2023 5:23 PM Chest X-Ray 11/12/23 16:33 XR chest 1V portable CLINICAL HISTORY: Sepsis. COMPARISON STUDY: Chest radiograph August 07, 2023. FINDINGS: Lung volumes are normal. Lungs are clear. There is no pneumothorax or pleural effusion. Mild cardiomegaly is unchanged. Mediastinal contours are normal. There is no evidence for pulmonary edema. IMPRESSION: No acute cardiopulmonary findings. No change in appearance of the chest. ACT 112: Negative or not required by law. Electronically signed by: Junior Isaacs M.D. 11/12/2023 6:30 PM Discharge Plan Visit Data Chief Complaint: Illness ED Provider: Coy Fajardo Discharge Problem: Sepsis, Abdominal pain, Cellulitis Patient Disposition: Admitted As Inpatient Discharge Instructions Interventions: ED Discharge Assessment Last Done: 11/12/23 20:00 Discharge Problem: Sepsis Qualifiers: Sepsis type: sepsis due to unspecified organism Sepsis acute organ dysfunction status: unspecified Qualified Code(s): A41.9 - Sepsis, unspecified organism Abdominal pain Qualifiers: Abdominal location: unspecified location Qualified Code(s): R10.9 - Unspecified abdominal pain Cellulitis Qualifiers: Site of cellulitis: unspecified site Qualified Code(s): L03.90 - Cellulitis, unspecified
--- OUTSIDE RECORDS SUMMARY | 2023-11-12 16:35 | External Medical Summary | Summary of Care ---
Author Name Unknown Organization [facility] Address [address] [place] [address] Phone [phone] Care Team Providers Care Inspector Of Weights And Measures Name Role Phone Serene Lopez PA-C Primary Care Provide r Reason for Visit * Reason Onset Date Comments Med Request 2023 Encounter Details Date Type Department Care Team (Late st Contact Info) Description 2023 [facility] [address] [facility] [place] [address] [facility] [address] Med Request Allergies Active Allergy Reactions Criticality Noted Date Comments Clindamycin 05/31/2017 Hives/ ER visit Glimepiride 05/03/2022 Empagliflozin 10/31/2018 Genital rash Sulfa Antibiotics Anaphylaxis 01/13/2007 documented as of this encounter (statuses as of 2023) Medications Medication Sig Dispensed Refills Start Date [...] until resolved, then when flaring. 60 g 11/15/2022 Active Basaglar KwikPen 100 UNIT/ML Subcutaneous Solution Pen-injector (Insulin Glargine Solostar)Indicatio ns:Type 2 diabetes mellitus with stage 2 chronic kidney disease, without long-term current use of insulin ([facility]) inject 40 units under the skin twice daily 75 mL 1 07/16/2023 Active Potassium Chloride Kaci ER 20 MEQ Oral Tablet Extended Release Take 1 Tablet by mouth in the morning and 1 Tablet before bedtime. 07/14/2023 Active Pravastatin Sodium 40 MG Oral Tablet (Pravachol)Indicat ions:Type 2 diabetes mellitus with hemoglobin A1c goal of less than 7.0% ([facility]),Hyperlipidem ia with target LDL less than 100 TAKE ONE TABLET BY MOUTH AT BEDTIME 90 Tablet 1 07/21/2023 Active Ramipril 5 MG Oral Capsule (Altace)Indication s:Type 2 diabetes mellitus with hemoglobin A1c goal of less than 7.0% ([facility]),Type 2 diabetes mellitus with stage 2 chronic kidney disease, without long-term current use of insulin ([facility]) TAKE ONE CAPSULE BY MOUTH EVERY DAY 90 Capsule 1 07/21/2023 Active metFORMIN HCl ER 500 MG Oral Tablet Extended Release 24 Hour (Glucophage XR)Indications:Typ e 2 diabetes mellitus with stage 2 chronic kidney disease, without long-term current use of insulin ([facility]) TAKE TWO TABLETS BY MOUTH IN THE MORNING. 180 Tablet 1 07/21/2023 Active predniSONE 20 MG Oral Tablet (Deltasone)Indicat ions:Dermatitis 1 tab 3 times a day for 3 days, then 1 tab 2 times a day for 3 days, then 1 tab daily for 3 days 18 Tablet 08/30/2023 Active Additional Information Patient not taking.Reported on 09/21/2023 Ketoconazole 2 % External Cream Apply topically to affected area daily. Apply to rash under breasts/groin 60 g 3 08/30/2023 Active Cephalexin 500 MG Oral Capsule (Keflex)Indication s:Sepsis due to cellulitis (HCC) Take 1 Capsule by mouth in the morning and 1 Capsule before bedtime. Do all this for 28 days. 56 Capsule 09/14/2023 10/12/2023 Active QUEtiapine Fumarate 25 MG Oral Tablet (SEROquel)Indicati ons:Hallucinations Take 1 Tablet by mouth at bedtime. 30 Tablet 1 09/14/2023 Active busPIRone HCl 7.5 MG Oral Tablet (Buspar) Take 1 Tablet by mouth 2 times a day. 60 Tablet 2 09/19/2023 Active Furosemide 40 MG Oral Tablet (Lasix) Take 0.5 Tablets by mouth in the morning and 0.5 Tablets before bedtime. 30 Tablet 3 09/19/2023 Active Ondansetron HCl 4 MG Oral Tablet Take 1 Tablet by mouth every 8 hours as needed for Nausea. 15 Tablet 09/19/2023 Active Cephalexin 500 MG Oral Capsule (Keflex) Take 1 Capsule by mouth in the morning and 1 Capsule before bedtime. Until gone.. 180 Capsule 1 09/21/2023 03/19/2024 Active Naproxen 500 MG Oral Tablet (Naprosyn) Take 1 Tablet by mouth 2 times a day as needed for Pain. With food 40 Tablet 1 2023 Active documented as of this encounter (statuses as of 2023) Active Problems Problem Noted Date Diagnosed Date [...] as of this encounter (statuses as of 2023) Resolved Problems Problem Noted Date Diagnosed Date [...] as of this encounter (statuses as of 2023) Immunizations Name Administration Dates Next Due COVID-19 mRNA, LNP-s, No Pre serve, 2-Dose Series ([email or web address].am) 07/03/2020 HEP A - Hepatitis A (Adult > 18 yrs) 10/13/2017, 03/08/2017 Hepatitis B, 20+ yrs 06/29/2017,01/26/2017,12/27 Pneumococcal Conjugate Vacci ne, 20-valent ([id number]) 08/24/2022 Pneumococcal Polysaccharide PPV23 (Pneumovax) 07/02/2011 Seasonal [...] money to get more. Never true 07/25/2023 Childcare Answer Date Recorded Do you feel overwhelmed with taking care of a child, family member or friend? No 07/25/2023 Does your family need help f inding childcare? (Household - for ages 0-17 years) Not on file 07/25/2023 Clothing Answer Date Recorded Have you been unable to get clothing when it was really needed? No 07/25/2023 Is your family able to get c lothes or diapers when needed? (Household - for ages 0-17 years) Not on file 07/25/2023 Personal Safety Answer Date Recorded Do you feel unsafe or have concerns for your saf ety? No 07/25/2023 Do you have concerns for you r family's safety? (Household - for ages 0-17 years) Not on file 07/25/2023 Utilities Answer Date Recorded Do you have trouble paying y our heating, water, or electric bill? No 07/25/2023 Is your family able to pay t he heat, water, or electric bill? (Household - for ages 0-17 years) Not on file 07/25/2023 Does your family have access to good internet? (Household - for ages 0-17 years) Not on file 07/25/2023 Employment Status Answer Date Recorded Are you unemployed or without regular income? No 07/25/2023 Does the household have a re gular source of income? (Household - for ages 0-17 years) Not on file 07/25/2023 Social Connections Answer Date Recorded How often do you feel lonely or isolated from th ose around you? Never 07/25/2023 Financial Resource Strain Answer Date R ecorded Do you have any trouble payi ng for your medications, or do you think you might in the future? No 07/25/2023 Does your family have troubl e paying for medicine? (Household - for ages 0-17 years) Not on file 07/25/2023 Transportation Needs Answer Date Record ed READ ONLY Do you have troubl e getting a ride to medical visits or work? Never True 07/25/2023 Does your family have a hard time getting a ride to doctors visits? (Household - for ages 0-17 years) Not on file 07/25/2023 Has lack of transportation k ept you from medical appointments, meetings, work, or from getting things needed for daily living? Check all that apply. (Adult - for ages 18 years and over) Not on file 07/25/2023 Do you (or your family) have trouble finding or paying for a ride (transportation)? (Household - for ages 0-17 years) Not on file 07/25/2023 Housing Stability Answer Date Recorded Do you currently live in a s helter or have no steady place to sleep at night? No 07/25/2023 READ ONLY Do you think you a re at risk of becoming homeless? No 07/25/2023 Does your family worry about paying for your home or becoming homeless? (Household - for ages 0-17 years) Not on file 0 07/25/2023 Are you homeless or worried that you might be in the future? (Adult - for ages 18 years and over) Not on file Are you (or your family) nedra eless or worried that you might be in the future? (Household - for ages 0-17 years) Not on file Food Insecurity Answer Date Recorded Do you need food for this week? No 07/25/2023 Are you able to get enough f ood for your family? (Household - for ages 0-17 years) Not on file 07/25/2023 Does your family need food t his week? (Household - for ages 0-17 years) Not on file 07/25/2023 Do you always have enough fo od for your family? (Household - for ages 0-17 years) Not on file 07/25/2023 Sex and Gender Information Value Date Recorded Sex Assigned at Not on file Gender Identity Not on file Sexual Orientation Not on file Job Start Date Occupation Industry Not on file Not on file Not on file documented as of this encounter Miscellaneous Notes * Telephone Encounter - Ben Elias DO - 2023 4:28 PM EDT Script sent for short course * Telephone Encounter - Jacquelin Thapa LPN - 2023 12:31 PM EDT Pending Prescriptions: Disp Refills Naproxen 500 MG Oral Tablet (Naprosyn) 40 Tab*1 Sig: Take 1 Tablet by mouth 2 times a day as needed for Pain. With food Last Visit: 09/19/2023 (in office), Visit date not found (telemedicine) Next Visit: 12/30/2023 Last date the medication was ordered: ER gave her the original prescription. Patient Active Problem List Diagnosis Lymphedema Sleep apnea Type 2 diabetes mellitus with hemoglobin A1c goal of less than 7.0% (HCC) Rosacea Hyperlipidemia with target LDL less than 100 Thrombocytopenia (HCC) Splenomegaly Type 2 diabetes mellitus with stage 2 chronic kidney disease, without long-term current use of insulin (HCC) Advanced directives, counseling/discussion Portal hypertension (HCC) Vitamin D deficiency Morbid obesity with BMI of 45.0-49.9, adult (HCC) Cirrhosis of liver without ascites (HCC) CKD (chronic kidney disease), stage II Labs: Lab Results Component Value Date/Time CREATININE - [facility] 1.0 07/18/2023 01:37 PM CREATININE - [facility] 0.9 08/21/2019 11:53 AM CREATININE, RANDOM URINE - [facility] 79 06/20/2023 12:30 PM CREATININE, RANDOM URINE - [facility] 86 08/21/2019 11:53 AM CREATININE-OUTSIDE LAB 1.05 07/14/2023 12:00 AM Lab Results Component Value Date/Time POTASSIUM - [facility] 3.8 07/18/2023 01:37 PM POTASSIUM - [facility] 4.1 08/21/2019 11:53 AM POTASSIUM-OUTSIDE LAB 3.3 (A) 07/14/2023 12:00 AM No results found for: "TSH" Lab Results Component Value Date/Time LDL CHOLESTEROL (CALCULATED) - [facility] 49 06/20/2023 12:27 PM LDL CHOLESTEROL (CALCULATED) - [facility] 37 08/24/2022 10:12 AM LDL CHOLESTEROL (CALCULATED) - [facility] 35 08/21/2019 11:53 AM LDL CHOLESTEROL (CALCULATED) - [facility] 41 10/16/2018 09:46 AM LDL CHOLESTEROL (DIRECT MEASURE) - [facility] NOT APPLICABLE 08/21/2019 11:53 AM LDL CHOLESTEROL (DIRECT MEASURE) - [facility] NOT APPLICABLE 10/16/2018 09:46 AM Lab Results Component Value Date/Time ALT - [facility] 21 07/18/2023 01:37 PM ALT - [facility] 26 10/16/2018 09:46 AM ALT LIVER FIB PANEL 24 01/19/2017 07:34 AM ALT-OUTSIDE LAB 28 12/24/2016 12:00 AM Hemoglobin AIC Results: Lab Results Component Value Date/Time HEMOGLOBIN A1C - [facility] 8.3 (H) 09/19/2023 01:43 PM HEMOGLOBIN A1C - [facility] 6.0 (H) 06/20/2023 12:27 PM HEMOGLOBIN A1C - [facility] 6.4 (H) 03/01/2023 09:03 AM HEMOGLOBIN A1C - [facility] 9.3 (H) 02/21/2020 09:36 AM HEMOGLOBIN A1C - [facility] 10.2 (H) 08/21/2019 11:53 AM HEMOGLOBIN A1C - [facility] 8.8 (H) 10/16/2018 09:46 AM * Telephone Encounter - Maribell Crowder CPhT - 2023 8:52 AM EDT Patient calling stating she was in the emergency room on Tuesday for severe ankle pain and received Naproxen 500 MG twice daily. Patient is requesting a new script to be sent to her pharmacy. Pleasereview. Thank you, Maribell Crowder, Parts Product Analyst [facility] 2023,8:52 AM documented in this encounter Plan of Treatment Upcoming Encounters Date Type Department Care Team (Late st Contact Info) Description 12/27/2023 9:40 AM EDT Office Visit Hepatology, [facility] [address] [facility] [place] [address] Sena Hancock MD [address] [place] [address] 12/30/2023 11:20 AM EDT [facility] [address] [facility] [place] [address] Annelise Kuhn MD [address] [facility] [place] [address] Health Maintenance Due Date Last Done Comments DTaP,Tdap,and Td Vaccines (1 - Tdap) 1977 HPV/Co-Test 1988 Mammogram 1998 Cologuard 09/27/2003 Colonoscopy 09/27/2003 Sigmoidoscopy 09/27/2003 Colorectal Cancer Screening 04/16/2017 Fecal Occult Blood Test 04/16/2017 04/16/2016 Cervical Cancer Screening 01/19/2020 Pap Smear 01/19/2020 01/18/2017 COVID-19 Vaccine (2 - Pfizer risk series) 07/24/2020 07/03/2020 Diabetic Eye Exam 01/14/2024 01/13/2023, , 01/12/2022, Additional history exists Diabetic Foot Exam 03/01/2024 03/01/2023, 1 04/26/2021, 02/23/2021, Additional history exists HbA1c 03/20/2024 09/19/2023, 0311/2023, 03/01/2023, Additional history exists Albumin/Creatinine Ratio 06/19/2024 03/2 024, 08/24/2022, 08/24/2021, Additional history exists GFR 07/17/2024 07/18/2023, 07/03, 06/20/2023, Additional history exists Depression Monitoring 07/24/2024 07/25/2023 Lipid Panel 06/19/2028 06/20/2023, 08/03, 08/24/2021, Additional [...] Not on filedocumented as of this encounter Advance Directives * Full Code (Latest Code Status on File) Date Activated Date Inactivated Comments 07/11/2017 10:33 AM 07/11/2017 3:56 PM This order re flects the patients wishes and were consensually agreed upon. Care Teams Inspector Of Weights And Measures Relationship Specialty Start Date End Date Serene Lopez PA-C [address] [place] [address] PCP - General Physician [employer] Ax Consultant 07/18/23 documented as of this encounter
--- OUTSIDE RECORDS SUMMARY | 2023-11-12 16:35 | External Medical Summary | Summary of Care ---
Author Name Unknown Organization [facility] Address [address] [place] [address] Phone [phone] Care Team Providers Care Bird Sitter Name Role Phone Serene Lopez PA-C Primary Care Provide r Reason for Visit * Reason Onset Date Comments Medication Refill 10/20/2023 Encounter Details Date Type Department Care Team (Late st Contact Info) Description 10/20/2023 Refill Family Practice [facility] [address] [facility] [place] [address] Serene Lopez [facility]-C [facility] [address] Allergies Active Allergy Reactions Criticality Noted Date Comments Clindamycin 05/31/2017 Hives/ ER visit Glimepiride 05/03/2022 Empagliflozin 10/31/2018 Genital rash Sulfa Antibiotics Anaphylaxis 01/13/2007 documented as of this encounter (statuses as of 10/20/2023) Medications Medication Sig Dispensed Refills Start Date End Date Status OneTouch Ultra In Vitro Strip (Glucose Blood)Indications:T ype 2 diabetes mellitus with hemoglobin A1c goal of less than 7.0% ([facility]),Type 2 diabetes mellitus with stage 2 chronic kidney disease, without long-term current use of insulin ([facility]) Use to test blood sugar once a [...] over top 200 g 3 08/19/2022 Active Clobetasol Propionate 0.05 % External Ointment (Temovate)Indicatio ns:Plaque psoriasis apply to thickened areas on back 2 times daily until resolved, then when flaring. 60 g 11/15/2022 Active Basaglar KwikPen 100 UNIT/ML Subcutaneous Solution Pen-injector (Insulin Glargine Solostar)Indication s:Type 2 diabetes mellitus with stage 2 chronic kidney disease, without long-term current use of insulin ([facility]) inject 40 units under the skin twice daily 75 mL 1 07/16/2023 Active Pravastatin Sodium 40 MG Oral Tablet (Pravachol)Indicati ons:Type 2 diabetes mellitus with hemoglobin A1c goal of less than 7.0% (HCC),Hyperlipidemi a with target LDL less than 100 TAKE ONE TABLET BY MOUTH AT BEDTIME 90 Tablet 1 07/21/2023 Active metFORMIN HCl ER 500 MG Oral Tablet Extended Release 24 Hour (Glucophage XR)Indications:Type 2 diabetes mellitus with stage 2 chronic kidney disease, without long-term current use of insulin ([facility]) TAKE TWO TABLETS BY MOUTH IN THE MORNING. 180 Tablet 1 07/21/2023 Active Ketoconazole 2 % External Cream Apply topically to affected area daily. Apply to rash under breasts/groin 60 g 3 08/30/2023 Active QUEtiapine Fumarate 25 MG Oral Tablet (SEROquel)Indicatio ns:Hallucinations Take 1 Tablet by mouth at bedtime. 30 Tablet 1 09/14/2023 Active busPIRone HCl 7.5 MG Oral Tablet (Buspar) Take 1 Tablet by mouth 2 times a day. 60 Tablet 2 09/19/2023 Active Cephalexin 500 MG Oral Capsule (Keflex) Take 1 Capsule by mouth in the morning and 1 Capsule before bedtime. Until gone.. 180 Capsule 1 09/21/2023 Active Naproxen 500 MG Oral Tablet (Naprosyn) Take 1 Tablet by mouth 2 times a day as needed for Pain. With food 40 Tablet 1 2023 Active Ondansetron 4 MG Oral Tablet Disintegrating (Zofran) Place 1 Tablet on tongue every 8 hours as needed for Nausea. dissolve on tongue. 12 Tablet 10/05/2023 Active BD Pen Needle Mini U/F 31G X 5 MM (Insulin Pen Needle)Indications: Type 2 diabetes mellitus with hemoglobin A1c goal of less than 7.0% (HCC),Type 2 diabetes mellitus with stage 2 chronic kidney disease, without long-term current use of insulin (HCC) use with insulin twice daily 200 Each 1 10/11/2023 Active Hlsnwkq-Fneiej-Lcfc l Pertussis 5-2.5-18.5 LF-MCG/0.5 Suspension Prefilled Syringe (Boostrix)Indicatio ns:Need for diphtheria-tetanus- pertussis (Tdap) vaccine Inject 0.5 mL into a large muscle once for 1 dose. 0.5 mL 10/19/2023 4 Active Furosemide 40 MG Oral Tablet (Lasix) Take 0.5 Tablets by mouth in the morning and 0.5 Tablets before bedtime. 30 Tablet 3 10/20/2023 Active Furosemide 40 MG Oral Tablet (Lasix) Take 0.5 Tablets by mouth in the morning and 0.5 Tablets before bedtime. 10/19/2023 4 Discontinue d(Refill) documented as of this encounter (statuses as of 10/20/2023) Active Problems Problem Noted Date Diagnosed Date [...] as of this encounter (statuses as of 10/20/2023) Resolved Problems Problem Noted Date Diagnosed Date [...] as of this encounter (statuses as of 10/20/2023) Immunizations Name Administration Dates Next Due COVID-19 mRNA, LNP-s, No Pre serve, 2-Dose Series ([facility]) 07/03/2020 HEP A - Hepatitis A (Adult > 18 yrs) 10/13/2017, 03/08/2017 Hepatitis B, 20+ yrs 06/29/2017,01/26/2017,12/27 Pneumococcal Conjugate Vacci ne, 20-valent ([id number]) 08/24/2022 Pneumococcal Polysaccharide PPV23 (Pneumovax) 07/02/2011 Seasonal Influenza, PF, 6 M & above, IM , (FluLaval or Fluzone) 03/01/2023,02/24/2022,02/23/2021,02/20 TDAP, Age 7 and older, IM (Adacel) 10/19/2023 Zoster Vaccine Recombinant (Shingrix) 08/23/2021 ,06/22/2021 documented as of this encounter Social History Tobacco Use Types Packs/Day Years Used Date Smoking Tobacco: Never Smokeless Tobacco: Never Alcohol Use Standard Drinks/Week Comments No 0 (1 standard drink = 0.6 oz pur e alcohol) PHQ-2 Answer Date Recorded PHQ Adult Total Score 17 10/04/2023 Hunger Vital Sign Answer Date Recorded Within [...] encounter Miscellaneous Notes * Telephone Encounter - Bindu Rocha PA-C - 10/20/2023 8:50 PM EDTSigned Prescriptions: Disp Refills Furosemide 40 MG Oral Tablet (Lasix) 30 Tab*3 Sig: Take 0.5 Tablets by mouth in the morning and 0.5 Tablets before bedtime. Authorizing Provider: BINDU ROCHA * Telephone Encounter - Kimberly Canales [facility] - 10/20/2023 4:37 PM EDTPending Prescriptions: Disp Refills Furosemide 40 MG Oral Tablet (Lasix) 30 Tab*3 Sig: Take 0.5 Tablets by mouth in the morning and 0.5 Tablets before bedtime. * Telephone Encounter - Kimberly Canales [facility] - 10/20/2023 4:37 PM EDT Pharmacists cannot authorize refills for meds listed as "historical" in chart. Please approve if appropriate. Pending Prescriptions: Disp Refills Furosemide 40 MG Oral Tablet (Lasix) 30 Tab*3 Sig: Take 0.5 Tablets by mouth in the morning and 0.5 Tablets before bedtime. 09/19/2023 (in office), Visit date not found (telemedicine) 12/30/2023 If no future appointments scheduled, and last appointment is greater than a year ago, please schedule patient for a follow-up appointment Last date the medication was ordered: historical Pharm[id number] [address] [facility] Is this request for a controlled substance? No Urine Drug Screen:No results found for this or any previous visit. Patient Phone Numbers Labs: Lab Results Component Value Date/Time CREAT 1.2 (H) 10/05/2023 11:15 AM CREAT 1.05 07/14/2023 12:00 AM CREAT 0.9 08/21/2019 11:53 AM POTASSIUM 3.7 10/05/2023 11:15 AM POTASSIUM 3.3 (A) 07/14/2023 12:00 AM POTASSIUM 4.1 08/21/2019 11:53 AM LDLCALC 49 06/20/2023 12:27 PM LDLCALC 35 08/21/2019 11:53 AM LDLDIRECT NOT APPLICABLE 08/21/2019 11:53 AM ALT 15 10/05/2023 11:15 AM ALT 26 10/16/2018 09:46 AM HGBA1C 8.3 (H) 09/19/2023 01:43 PM HGBA1C 9.3 (H) 02/21/2020 09:36 AM * Telephone Encounter - Benedicto Ballard, production operations manager - 10/20/2023 8:10 AM EDT Medication(s) is/are listed as "Historical". Pt confirmed the current dosage, directions, and qty that they are normally prescribed, as reflected in the pending order below. This is also indicated from encounter on 10/19/23. Confirmed patient has been seen within the last year.. Please review and approve if appropriate. Pending Prescriptions: Disp Refills Furosemide 40 MG Oral Tablet (Lasix) 30 Tab*3 Sig: Take 0.5 Tablets by mouth in the morning and 0.5 Tablets before bedtime. Last Visit: 09/19/2023 (in office), Visit date not found (telemedicine) Next Visit: 12/30/2023 If no future appointments scheduled, and last appointment is greater than a year ago, please schedule patient for a follow-up appointment Last date the medication was ordered: Historical Patient Phone Numbers Labs: Lab Results Component Value Date/Time CREAT 1.2 (H) 10/05/2023 11:15 AM CREAT 1.05 07/14/2023 12:00 AM CREAT 0.9 08/21/2019 11:53 AM POTASSIUM 3.7 10/05/2023 11:15 AM POTASSIUM 3.3 (A) 07/14/2023 12:00 AM POTASSIUM 4.1 08/21/2019 11:53 AM LDLCALC 49 06/20/2023 12:27 PM LDLCALC 35 08/21/2019 11:53 AM LDLDIRECT NOT APPLICABLE 08/21/2019 11:53 AM ALT 15 10/05/2023 11:15 AM ALT 26 10/16/2018 09:46 AM HGBA1C 8.3 (H) 09/19/2023 01:43 PM HGBA1C 9.3 (H) 02/21/2020 09:36 AM documented in this encounter Plan of Treatment Upcoming Encounters Date Type Department Care Team (Late st Contact Info) Description 12/27/2023 9:40 AM EDT Office Visit Hepatology, [facility] [address] [facility] [place] [address] Sena Hancock MD [address] [facility] [place] [address] 12/30/2023 11:20 AM EDT Office Visit Family Practice [facility] [address] [facility] [place] [address] Annelise Kuhn MD [address] [facility] [place] [address] Health Maintenance Due Date Last Done Comments Mammogram 1998 Cologuard 09/27/2003 Colonoscopy 09/27/2003 Sigmoidoscopy 09/27/2003 Colorectal Cancer Screening 04/16/2017 Fecal Occult Blood Test 04/16/2017 04/16/2016 COVID-19 Vaccine (2 - Pfizer risk series) 07/24/2020 07/03/2020 DXA Scan 09/27/2023 Influenza Vaccine (FLU shot) (#1) 2023 03/01/2023, 02/24/2022, 02/23/2021, Additional history exists Diabetic Eye Exam 01/14/2024 01/13/2023, , 01/12/2022, Additional history exists Diabetic Foot Exam 03/01/2024 03/01/2023, 1 04/26/2021, 02/23/2021, Additional history exists HbA1c 03/20/2024 09/19/2023, 06/02, 03/01/2023, Additional history exists Albumin/Creatinine Ratio 06/19/2024 024, 08/24/2022, 08/24/2021, Additional history exists Depression Monitoring 10/03/2024 10/04/2023 GFR 10/04/2024 10/05/2023, 0408/2023, 07/14/2023, Additional history exists Lipid Panel 06/19/2028 06/20/2023, 08/03, 08/24/2021, Additional history exists DTaP,Tdap,and Td Vaccines (2 - Td or Tdap) 10/18/2033 10/19/2023 Cervical Cancer Screening Discontinued Pap Smear Discontinued 01/18/2017 Hepatitis B Vaccine Completed 06/29/2017, 01/26/2017, 12/27/2016 Zoster Vaccines Completed 08/23/2021, 06/22/2021 Pneumococcal Vaccine: 65+ Years Completed 08/24/2022, 07/02/2011 HPV (Gardasil) Vaccine Aged Out No lo nger eligible based on patient's age to complete this topic HPV/Co-Test Discontinued MENINGOCOCCAL (MENACTRA/MENVEO) Aged Out No longer eligible [...] and were consensually agreed upon. Care Teams Bird Sitter Relationship Specialty Start Date End Date Serene Lopez PA-C [address] [place] [address] PCP - General Physician Sound Installation Worker 07/18/23 documented as of this encounter
--- OUTSIDE RECORDS SUMMARY | 2023-11-12 16:35 | External Medical Summary | Summary of Care ---
Author Name Unknown Organization [facility] Address [address] [place] [address] Phone [phone] Care Team Providers Care Emt Driver Name Role Phone Seerne Lopez PA-C Primary Care Provide r Reason for Visit * Reason Onset Date Comments Follow Up Lump on abdomen- injection site used in hosptial Immunizations 10/19/2023 Encounter Details Date Type Department Care Team ([facility] st Contact Info) Description 10/19/2023 9:20 AM EDT Office Visit General Internal Medicine [facility] [address] [facility] [place] [address] Steph Gomez PA-C [address] [place] [address] Follow-up examination*; Hypotension, unspecified hypotension type; Viral gastroenteritis; Type 2 diabetes mellitus with hemoglobin A1c goal of less than 7.0% ([facility]); Granuloma, skin; Need for lwkqvfjqcz-jatwass-lv rtussis (Tdap) vaccine Allergies Active Allergy Reactions Criticality Noted Date Comments Clindamycin 05/31/2017 Hives/ ER visit Glimepiride 05/03/2022 Empagliflozin 10/31/2018 Genital rash Sulfa Antibiotics Anaphylaxis 01/13/2007 documented as of this encounter (statuses as of 10/19/2023) Medications Medication Sig Dispensed Refills Start Date [...] 3 Active Tacrolimus 0.1 % External Ointment (Protopic)Indicati ons:Inverse psoriasis Apply topically to affected area 2 times a day. Apply thin layer to skin folds 2x daily with Desitin 40% cream (over the counter) over top 200 g 3 3 Active Clobetasol Propionate 0.05 % External Ointment (Temovate)Indicati ons:Plaque psoriasis apply to thickened areas on back 2 times daily until resolved, then when flaring. 60 g 3 Active Basaglar KwikPen 100 UNIT/ML Subcutaneous Solution Pen-injector (Insulin Glargine Solostar)Indicatio ns:Type 2 diabetes mellitus with stage 2 chronic kidney disease, without long-term current use of insulin ([facility]) inject 40 units under the skin twice daily 75 mL 1 4 Active Pravastatin Sodium 40 MG Oral Tablet (Pravachol)Indicat ions:Type 2 diabetes mellitus with hemoglobin A1c goal of less than 7.0% ([facility]),Hyperlipidem ia with target LDL less than 100 TAKE ONE TABLET BY MOUTH AT BEDTIME 90 Tablet 1 4 Active metFORMIN HCl ER 500 MG Oral Tablet Extended Release 24 Hour (Glucophage XR)Indications:Typ e 2 diabetes mellitus with stage 2 chronic kidney disease, without long-term current use of insulin ([facility]) TAKE TWO TABLETS BY MOUTH IN THE MORNING. 180 Tablet 1 4 Active Ketoconazole 2 % External Cream Apply topically to affected area daily. Apply to rash under breasts/groin 60 g 3 4 Active QUEtiapine Fumarate 25 MG Oral Tablet (SEROquel)Indicati ons:Hallucinations Take 1 Tablet by mouth at bedtime. 30 Tablet 1 4 Active busPIRone HCl 7.5 MG Oral Tablet (Buspar) Take 1 Tablet by mouth 2 times a day. 60 Tablet 2 4 Active Cephalexin 500 MG Oral Capsule (Keflex) Take 1 Capsule by mouth in the morning and 1 Capsule before bedtime. Until gone.. 180 Capsule 1 4 03/19/20 24 Active Naproxen 500 MG Oral Tablet (Naprosyn) Take 1 Tablet by mouth 2 times a day as needed for Pain. With food 40 Tablet 1 4 Active Ondansetron 4 MG Oral Tablet Disintegrating (Zofran) Place 1 Tablet on tongue every 8 hours as needed for Nausea. dissolve on tongue. 12 Tablet 4 Active BD Pen Needle Mini U/F 31G X 5 MM (Insulin Pen Needle)Indications :Type 2 diabetes mellitus with hemoglobin A1c goal of less than 7.0% ([facility]),Type 2 diabetes mellitus with stage 2 chronic kidney disease, without long-term current use of insulin ([facility]) use with insulin twice daily 200 Each 1 4 Active Furosemide 40 MG Oral Tablet (Lasix) Take 0.5 Tablets by mouth in the morning and 0.5 Tablets before bedtime. 4 Active Cutvszt-Rxevbg-Twq ll Pertussis 5-2.5-18.5 LF-MCG/0.5 Suspension Prefilled Syringe (Boostrix)Indicati ons:Need for diphtheria-tetanus -pertussis (Tdap) vaccine Inject 0.5 mL into a large muscle once for 1 dose. 0.5 mL 4 10/20/19 24 Active Ramipril 5 MG Oral Capsule (Altace)Indication s:Type 2 diabetes mellitus with hemoglobin A1c goal of less than 7.0% ([facility]),Type 2 diabetes mellitus with stage 2 chronic kidney disease, without long-term current use of insulin ([facility]) TAKE ONE CAPSULE BY MOUTH EVERY DAY 90 Capsule 1 4 10/19/19 24 Discontinued Furosemide 40 MG Oral Tablet (Lasix) Take 0.5 Tablets by mouth in the morning and 0.5 Tablets before bedtime. *HOLD* Lasix in PM on 73. 4 10/19/19 24 Discontinued Tbyuapv-Jsepll-Hce ll Pertussis 5-2.5-18.5 LF-MCG/0.5 Suspension Prefilled Syringe (Boostrix)Indicati ons:Need for diphtheria-tetanus -pertussis (Tdap) vaccine Inject 0.5 mL into a large muscle once for 1 dose. 0.5 mL 4 10/19/19 24 Discontinued(Ref ill) documented as of this encounter (statuses as of 10/19/2023) Active Problems Problem Noted Date Diagnosed Date [...] as of this encounter (statuses as of 10/19/2023) Resolved Problems Problem Noted Date Diagnosed Date [...] as of this encounter (statuses as of 10/19/2023) Immunizations Name Administration Dates Next Due COVID-19 mRNA, LNP-s, No Pre serve, 2-Dose Series (Pfizer) 07/03/2020 HEP A - Hepatitis A (Adult > 18 yrs) 10/13/2017, 03/08/2017 Hepatitis B, 20+ yrs 06/29/2017,01/26/2017,12/27 Pneumococcal Conjugate Vacci ne, 20-valent ([id number]) 08/24/2022 Pneumococcal Polysaccharide PPV23 (Pneumovax) 07/02/2011 Seasonal [...] ages 0-17 years) Not on file 07/25/2023 Are you homeless or worried that [...] Sign Reading Time Taken Comments Blood Pressure 110/52 10/19/2023 9:04 AM EDT Pulse 76 10/19/2023 9:04 AM EDT Temperature 36.8 C (98.3 F) 10/19/2023 9:04 AM ED T Respiratory Rate 16 10/19/2023 9:04 AM EDT Oxygen Saturation - - Inhaled Oxygen Concentration - - Weight 129 kg (284 lb 4.8 oz) 10/19/2023 9:04 AM EDT Height 166.4 cm (5' 5.51") 10/19/2023 9:04 AM ED T Body Mass Index 46.58 10/19/2023 9:04 AM EDT documented in this encounter Patient Instructions * Patient Instructions* Steph Gomez PA-C - 10/19/2023 9:42 AM EDT ~~PATIENT INSTRUCTIONS FOR TDAP VACCINE~~ Possible side effects of TDAP vaccine, (tetanus shot), are usually mild and can include: 1. Soreness or redness at injection site 2. Low grade fever 3. Body aches You may use a fever / pain reducing medication as needed for these symptoms. LET YOUR DOCTOR KNOW IMMEDIATELY IF YOU HAVE DIFFICULTY BREATHING OR SWALLOWING, EXPERIENCE ITCHINGOF FEET OR HANDS, HAVE SWELLING OF EYES, FACE OR INSIDE OF NOSE. documented in this encounter Progress Notes * Steph Gomez PA-C - 10/19/2023 9:25 AM EDT Images from the original note were not included. History of Present Illness Juli Lewis is a 63 year old female that presents for Follow Up (Lump on abdomen-injection site used in hosptial) and Immunizations Pt here today for a f/up of hypotension and N/V. Continues to hold the Lasix and ramipril. BP improved. No longer having any GI symptoms. Feeling much better. Only c/o today was a lump on her abdomen that started when she was last admitted after she receivedan insulin injection in the area. Not painful. Review of Systems: See HPI for pertinent positives. All other review of systems is negative. Physical Exam Vitals: 10/19/23 0904 Temp: 36.8 C (98.3 F) Pulse: 76 Resp: 16 BP: 110/52 BMI: 46.57 I have reviewed the following results: CMP and CBC Assessment and Plan Follow-up examination Hypotension, unspecified hypotension type BP stable. Will have her restart her Lasix. Will discontinue the Ramipril. Viral gastroenteritis Resolved. Type 2 diabetes mellitus with hemoglobin A1c goal of less than 7.0% ([facility]) Continue current care. Granuloma, skin Suspect a granuloma under the skin from the insulin injection. Can apply warm compresses to the area. No further treatment needed at this time. Need for uofxajsplj-fdomzsn-rphunlyfi (Tdap) vaccine Will check coverage with pharmacy. If able to give to pt today in the office - Gabtgqv-Kywguz-Cvcsv Pertussis 5-2.5-18.5 LF-MCG/0.5 Suspension Prefilled Syringe (Boostrix); Inject 0.5 mL into a large muscle once for 1 dose. Wrap-Up Follow Up: Return if symptoms worsen or fail to improve. Time: I spent a total of 30-39 minutes (exact time 32 mins) on the date of service in preparation, delivery, and documentation of the care provided to Juli Lewis excluding any time spent in the performance of separately billed services. documented in this encounter Nursing Notes * María Miller LPN - 10/19/2023 9:04 AM EDT The patient has been properly identified by confirmation of name and date of . Chief Complaint Patient presents with Follow Up Lump on abdomen-injection site used in hosptial documented in this encounter Plan of Treatment Upcoming Encounters Date Type Department Care Team (Late st Contact Info) Description 12/27/2023 9:40 AM EDT Office Visit Hepatology, [facility] [address] [facility] [place] [address] Sena Hancock MD [address] [place] [address] 12/30/2023 11:20 AM EDT Office Visit Family Practice [facility] [address] [facility] [address] Annelise Kuhn [facility] [address] [facility] [address] Health Maintenance Due Date Last Done Comments [...] Depression Monitoring 10/03/2024 10/04/2023 GFR 10/04/2024 10/05/2023, 07/03, 07/14/2023, Additional history exists Lipid Panel 06/19/2028 [...] as of this encounter Visit Diagnoses Diagnosis Follow-up examination- Primary Unspecified follow-up examination Hypotension, unspecified hypotension type Viral gastroenteritis Intestinal infection due to other organism, not elsewhere classified Type 2 diabetes mellitus with hemoglobin A1c goal of less than 7.0% (HCC) Granuloma, skin Pyogenic granuloma of skin and subcutaneous tissue Need for qifgscvoyh-hanhydt-xzfvecfau (Tdap) vaccine Need for prophylactic vaccination with combined uxvywfsxdv-dtbvnud-cscmgunnk (DTP) vaccine documented in this encounter Advance Directives * Full Code (Latest Code Status on File) Date Activated Date Inactivated Comments 07/11/2017 10:33 AM 07/11/2017 3:56 PM This order re flects the patients wishes and were consensually agreed upon. Care Teams Emt Driver Relationship Specialty Start Date End Date Serene Lopez PA-C [address] [place] [address] PCP - General Physician Refrigerating Engineer 07/18/23 documented as of this encounter
--- OUTSIDE RECORDS SUMMARY | 2023-11-12 16:35 | External Medical Summary ---
Author Name Unknown Address Unknown Organization [id number]:[facility] [address] [place] [address] Laboratory Report Ordering Provider Test Date Status AYDEE THOMSON 10/05/2023 11:15:43 Final Observation Date Value Abnormality Reference (Units ) Status BUN 10/05/2023 11:15:43 25 Above high normal 6-20 (mg/dL) Final Creatinine 10/05/2023 11:15:43 1.2 Above high normal 0.5-1.0 (mg/dL) Final Glomerular filtration rate/1.73 sq M.predicted [Volume Rate/Area] in Serum, Plasma or Blood by Creatinine-based formula (CKD-EPI) 10/05/2023 11:15:43 52 Below low normal >=60 (mL/min) Final eGFR is calculated based on the CKD-EPI 2020 equation Sodium 10/05/2023 11:15:43 137 135-146 (m mol/L) Final Potassium 10/05/2023 11:15:43 3.7 3.5-5.1 (m mol/L) Final Cl 10/05/2023 11:15:43 102 98-107 (mm ol/L) Final CO2 10/05/2023 11:15:43 22 22-32 (mmo l/L) Final Anion gap 10/05/2023 11:15:43 13 7-15 (mmol /L) Final Glucose 10/05/2023 11:15:43 199 Above high normal 70 -120 (mg/dL) Final Albumin 10/05/2023 11:15:43 2.8 Below low normal 3.8 -5.0 (g/dL) Final AST (Aspartate aminotransferase) 10/05/2023 11:15:43 58 Above high normal 10-35 (U/L) Final Alk Phos 10/05/2023 11:15:43 112 35-130 (U/ L) Final Bilirubin, Total 10/05/2023 11:15:43 2.6 Above high no rmal <=1.2 (mg/dL) Final Calcium 10/05/2023 11:15:43 8.9 8.4-10.2 ( mg/dL) Final Protein 10/05/2023 11:15:43 6.8 6.0-8.3 (g /dL) Final ALT (Alanine aminotransferase) 10/05/2023 11:15:43 15 10-35 (U/L) Mitchell taylor Performing Location [facility] [address] [place] [address]
--- OUTSIDE RECORDS SUMMARY | 2023-11-12 16:35 | External Medical Summary ---
Author Name Unknown Address Unknown Organization [id number] [place] [address] Laboratory Report Ordering Provider Test Date Status AYDEE THOMSON 10/05/2023 11:15:43 Final Observation Date Value Abnormality Reference (Units ) Status WBC, Total 10/05/2023 11:15:43 8.67 4.00-10.8 0 (K/uL) Final RBC 10/05/2023 11:15:43 3.43 3.85-5.15 (M/uL) Final Hemoglobin 10/05/2023 11:15:43 10.5 Below low normal 12 .0-15.3 (g/dL) Final HCT 10/05/2023 11:15:43 32.1 Below low normal 36. 0-45.2 (%) Final MCV 10/05/2023 11:15:43 93.6 81.5-97.5 (fL) Final MCH 10/05/2023 11:15:43 30.6 27.0-34.0 (pg) Final MCHC 10/05/2023 11:15:43 32.7 32.0-36.0 (g/dL) Final RDW 10/05/2023 11:15:43 17.4 11.5-15.5 (%) Final Platelets 10/05/2023 11:15:43 88 Below low normal 140 -400 (K/uL) Final MPV 10/05/2023 11:15:43 9.4 6.6-11.1 ( fL) Final Performing Location [facility] [place] [address]
--- OUTSIDE RECORDS SUMMARY | 2023-11-12 16:35 | External Medical Summary | Summary of Care ---
Author Name Unknown Organization [facility] Address [address] [place] [address] Phone [phone] Care Team Providers Care Copy Cutter Name Role Phone Serene Lopez PA-C Primary Care Provide r Reason for Visit * Reason Onset Date Comments Acute Pt in today for nausea, vomiting, diarrhea, fever, & chills x4 daysToday was first day taking meds since Tuesday IV Therapy 10/05/2023 Encounter Details Date Type Department Care Team (Late st Contact Info) Description 10/05/2023 10:00 AM EDT Office Visit General Internal Medicine [facility] [address] [place] [address] Steph Gomez PA-C [address] [place] [address] Viral gastroenteritis*; Hypotension, unspecified hypotension type; Lightheadedness; Nausea and vomiting, unspecified vomiting type; Diarrhea of presumed infectious origin; Need for case management follow-up Allergies Active Allergy Reactions Criticality Noted Date Comments Clindamycin 05/31/2017 Hives/ ER visit Glimepiride 05/03/2022 Empagliflozin 10/31/2018 Genital rash Sulfa Antibiotics Anaphylaxis 01/13/2007 documented as of this encounter (statuses as of 10/05/2023) Medications Medication Sig Dispensed Refills Start Date [...] goal of less than 7.0% ([facility]),Hyperlipidem ia with target LDL less than 100 TAKE ONE TABLET BY MOUTH AT BEDTIME 90 Tablet 1 4 Active Ramipril 5 MG Oral Capsule (Altace)Indication s:Type 2 diabetes mellitus with hemoglobin A1c goal of less than 7.0% ([facility]),Type 2 diabetes mellitus with stage 2 chronic kidney disease, without long-term current use of insulin ([facility]) TAKE ONE CAPSULE BY MOUTH EVERY DAY 90 Capsule 1 4 Active metFORMIN HCl ER 500 [...] under breasts/groin 60 g 3 4 Active Cephalexin 500 MG Oral Capsule (Keflex)Indication s:Sepsis due to cellulitis (HCC) Take 1 Capsule by mouth in the morning and 1 Capsule before bedtime. Do all this for 28 days. 56 Capsule 4 10/12/19 24 Active QUEtiapine Fumarate 25 MG Oral Tablet [...] With food 40 Tablet 1 4 Active Furosemide 40 MG Oral Tablet (Lasix) Take 0.5 Tablets by mouth in the morning and 0.5 Tablets before bedtime. *HOLD* Lasix in PM on 10/04. 4 Active Ondansetron 4 MG Oral Tablet Disintegrating (Zofran) Place 1 Tablet on tongue every 8 hours as needed for Nausea. dissolve on tongue. 12 Tablet 4 Active Potassium Chloride Kaci ER 20 MEQ Oral Tablet Extended Release Take 1 Tablet by mouth in the morning and 1 Tablet before bedtime. 4 10/05/19 24 Discontinued(Med ication List Clean Up) predniSONE 20 MG Oral Tablet (Deltasone)Indicat ions:Dermatitis 1 tab 3 times a day for 3 days, then 1 tab 2 times a day for 3 days, then 1 tab daily for 3 days 18 Tablet 4 10/05/19 24 Discontinued(Med ication List Clean Up) Furosemide 40 MG Oral Tablet (Lasix) Take 0.5 Tablets by mouth in the morning and 0.5 Tablets before bedtime. 30 Tablet 3 4 10/05/19 24 Discontinued Ondansetron HCl 4 MG Oral Tablet Take 1 Tablet by mouth every 8 hours as needed for Nausea. 15 Tablet 4 10/05/19 24 Discontinued(Med ication/Dose Changed) Hospital, Clinic, or Other Facility Administered Medication Ordered Dose Route Frequency Start Date End Date Status NSS 0.9% 1,000 mL bolus infusionIndications:Hypot ension, unspecified hypotension type 1000 mL IV ONCE 10/05/2023 10/05/2023 Ended ondansetron (Zofran) inj 4 mgIndications:Viral gastroenteritis,Hypotensi on, unspecified hypotension type,Lightheadedness,Naus ea and vomiting, unspecified vomiting type,Diarrhea of presumed infectious origin,Need for case management follow-up 4 mg IV PUSH ONCE 10/05/2023 10/05/2023 Ended documented as of this encounter (statuses as of 10/05/2023) Active Problems Problem Noted Date Diagnosed Date [...] as of this encounter (statuses as of 10/05/2023) Resolved Problems Problem Noted Date Diagnosed Date [...] as of this encounter (statuses as of 10/05/2023) Immunizations Name Administration Dates Next Due COVID-19 mRNA, LNP-s, No Pre serve, 2-Dose Series ([facility]) 07/03/2020 HEP A - Hepatitis A (Adult > 18 yrs) 10/13/2017, 03/08/2017 Hepatitis B, 20+ yrs 06/29/2017,01/26/2017,12/27 Pneumococcal Conjugate Vacci ne, 20-valent ([id number]) 08/24/2022 Pneumococcal Polysaccharide PPV23 (Pneumovax) 07/02/2011 Seasonal [...] Sign Reading Time Taken Comments Blood Pressure 76/40 10/05/2023 10:13 AM EDT Pulse 88 10/05/2023 10:13 AM EDT Temperature 37 C (98.6 F) 10/05/2023 10: 13 AM EDT Respiratory Rate 16 10/05/2023 10:1 3 AM EDT Oxygen Saturation 97% 10/05/2023 10: 13 AM EDT Inhaled Oxygen Concentration - - Weight 125.1 kg (275 lb 11.2 oz) 2023 10:13 AM EDT Height - - Body Mass Index 45.16 12/13/2022 11:51 AM EDT documented in this encounter Progress Notes * Ester Mcmillan RN - 10/05/2023 10:58 AM EDT IV ADMINISTRATION DOCUMENTATION After identifying patient by name and date of , IV catheter was inserted into Left Basilic Vein with a positive blood return noted. Infusion start time 1107 AM IV solution NSS was hung and infused via infusion pump at 1000ml/hr per Provider order. Infusion stop time 1211PM. IV Mervat: Discontinued Total volume infused was 1000ml Total time of infusion was 1 hr Educated patient on signs and symptoms to report. Instructed to call clinic with any problems or concerns regarding IV therapy. See Documentation Flowsheet for additional information. Ester Mcmillan RN * Steph Gomez PA-C - 10/05/2023 10:16 AM EDT Images from the original note were not included. History of Present Illness Juli Lewis is a 63 year old female that presents for Acute (Pt in today for nausea, vomiting, diarrhea, fever, & chills x4 days/Today was first day taking meds since Tuesday) Pt here today with a c/o a 3 day hx of nausea/vomiting, diarrhea, and fever/chills. Has had 3 Bms already this morning. Describes as loose, but previously was liquid. Denies blood with Bms or melena.Describes abdominal pain from retching only. Last vomited yesterday afternoon. Ate chicken noodle soup last night for dinner and kept that down.Ate 1 tg cracker this morning. Fever of 100.3. Only checked temp once when she had the chills. Temp is normal today. Hasn't taken any medications for her symptoms. Was not able to take any of her routine meds over the last several days. Was able to take her morning meds this morning. Denies syncope, but has felt lightheaded. This morning her BS was 215. Denies dysuria, urinary frequency, or flank pain. Review of Systems: See HPI for pertinent positives. All other review of systems is negative. Physical Exam Vitals: 10/05/23 1013 Temp: 37 C (98.6 F) Pulse: 88 Resp: 16 SpO2: 97% BP: 76/40 Physical Exam Constitutional: General: She is not in acute distress. Appearance: She is not diaphoretic. HENT: Mouth/Throat: Mouth: Mucous membranes are moist. Pharynx: Oropharynx is clear. Cardiovascular: Rate and Rhythm: Normal rate and regular rhythm. Pulmonary: Effort: Pulmonary effort is normal. Breath sounds: Normal breath sounds. Abdominal: General: Bowel sounds are normal. Palpations: Abdomen is soft. Tenderness: There is generalized abdominal tenderness. There is no right CVA tenderness, left CVA tenderness, guarding or rebound. Musculoskeletal: Cervical back: Normal range of motion and neck supple. Skin: General: Skin is warm and dry. Neurological: General: No focal deficit present. Mental Status: She is alert. Mental status is at baseline. I have reviewed the following results: Assessment and Plan Viral gastroenteritis One L of NSS given in the office today. Stat labs as well. Pt to hold her Lasix dose this evening. Will recheck her BP when fluids completed. Rx for Zofran ODT sent in place of regular Zofran tabs. - COMPREHENSIVE METABOLIC PANEL; Future - CBC WITH WBC DIFFERENTIAL; Future Hypotension, unspecified hypotension type See above. - COMPREHENSIVE METABOLIC PANEL; Future - CBC WITH WBC DIFFERENTIAL; Future Wrap-Up F/up in 5 days to recheck pt's BP and see how she's feeling. Advised pt if she continues to worsen and not improve in the interim, needs to go to the ER. Time: I spent a total of Greater than 55 mins (exact time 56 mins) on the date of service in preparation,delivery, and documentation of the care provided to Juli Lewis excluding any time spent in the performance of separately billed services. ADDENDUM Reassessed pt after fluids completed. BP slightly improved. Pt able to eat some crackers as well. Discussed with pt to hold Lasix and ramipril until f/up on Tuesday. If she would develop edema in the meantime, can resume Lasix. Discussed importance of staying hydrated. If pt would develop another fever or symptoms continue to declines, encouraged to seek care at the ER. documented in this encounter Nursing Notes * Katie Ocasio LPN - 10/05/2023 10:11 AM EDT Acute (Pt in today for nausea, vomiting, diarrhea, fever, & chills x4 days/Today was first day taking meds since Tuesday) documented in this encounter Miscellaneous Notes * Result Encounter Note - Steph Gomez PA-C - 10/05/2023 12:14 PM EDT Noted labs. Nothing emergent. Will f/up with her again in 5 days as discussed to recheck. Can update labs at that time. documented in this encounter Plan of Treatment Upcoming Encounters Date Type Department Care Team (Late st Contact Info) Description 10/12/2023 2:40 PM EDT Office Visit General Internal Medicine [facility] [address] [place] [address] Steph Gomez PA-C [address] [place] [address] 12/27/2023 9:40 AM EDT Office Visit Hepatology, [facility] [address] [facility] [place] [address] Sena Hancock MD [address] [place] [address] 12/30/2023 11:20 AM EDT Office Visit Family Practice [facility] [address] [place] [address] Annelise Kuhn MD [address] [place] [address] Scheduled Orders Name Type Priority Associated Diagnoses Orde r Schedule SALINE MERVAT Procedures Routine Viral gastroenteritis Hypotension, unspecified hypotension type Lightheadedness Nausea and vomiting, unspecified vomiting type Diarrhea of presumed infectious origin Need for case management follow-up Ordered: 10/05/2023 SALINE MERVAT, DISCONTINUE Procedures Routine Viral gastroenteritis Hypotension, unspecified hypotension type Lightheadedness Nausea and vomiting, unspecified vomiting type Diarrhea of presumed infectious origin Need for case management follow-up Ordered: 10/05/2023 Health Maintenance Due Date Last Done Comments DTaP,Tdap,and Td Vaccines (1 - Tdap) 1977 Mammogram 1998 Cologuard 09/27/2003 Colonoscopy 09/27/2003 Sigmoidoscopy [...] Additional history exists Lipid Panel 06/19/2028 06/20/2023, 0506/2022, 08/24/2021, Additional history exists Cervical Cancer Screening Discontinued Pap Smear Discontinued [...] Procedure Name Priority Date/Time Associated Diagnosis Comments DIFFERENTIAL, AUTOMATED STAT 10/05/2023 11:15 AM EDT Viral gastroenteritis Hypotension, unspecified hypotension type COMPREHENSIVE METABOLIC PANEL STAT 10/05/2023 11:15 AM EDT Viral gastroenteritis Hypotension, unspecified hypotension type CBC STAT 10/05/2023 11:15 AM EDT Viral gastroenteritis Hypotension, unspecified hypotension type CBC STAT 10/05/2023 11:15 AM EDT Viral gastroenteritis Hypotension, unspecified hypotension type DIFFERENTIAL, TECHNOLOGIST REVIEW Routine 10/05/2023 11:15 AM EDT Viral gastroenteritis Hypotension, unspecified hypotension type documented in this encounter Results * DIFFERENTIAL, TECHNOLOGIST REVIEW (10/05/2023 11:15 AM EDT) nRBCs 10/05/2023 11:26 AM EDT [facility] 56-02 Blood Venous blood specimen / Unknown Venipuncture / Unknown 10/05/2023 11:15 AM EDT 10/05/2023 11:21 AM EDT Steph Gomez PA-C LAB BLOOD ORDERABLES [facility] 56-[address] [place] [address] * (ABNORMAL) DIFFERENTIAL, AUTOMATED (10/05/2023 11:15 AM EDT) WBC 8.67 4.00 - 10.80 K/uL 10/05/2023 11:26 AM EDT [facility] 56-02 Neutrophils % 74.3 40.0 - 75.0 % 10/05/2023 11:26 AM EDT [facility] 56-02 Lymphocytes % 16.7(L) 18.0 - 42.0 % 10/05/2023 11:26 AM EDT [facility] 56-02 Monocytes % 8.3 1.0 - 11.0 % 10/05/2023 11:26 AM EDT [facility] 56-02 Eosinophils % 0.5 0.0 - 6.0 % 10/05/2023 11:26 AM EDT [facility] 56-02 Basophils % 0.2 0.0 - 2.0 % 10/05/2023 11:26 AM EDT [facility] 56-02 Absolute Neutrophils 6.44 1.80 - 7.70 K/uL 10/05/2023 11:26 AM EDT [facility] 56-02 Absolute Lymphocytes 1.45 1.00 - 4.80 K/ul 10/05/2023 11:26 AM EDT [facility] 56-02 Absolute Monocytes 0.72 0.00 - 1.10 K/uL 10/05/2023 11:26 AM EDT [facility] 56-02 Absolute Eosinophils 0.04 0.00 - 0.70 K/uL 10/05/2023 11:26 AM EDT [facility] 56-02 Absolute Basophils 0.02 0.00 - 0.20 K/uL 10/05/2023 11:26 AM EDT [facility] 56-02 Blood Venous blood specimen / Unknown Venipuncture / Unknown 10/05/2023 11:15 AM EDT 10/05/2023 11:21 AM EDT Steph Gomez PA-C LAB BLOOD ORDERABLES [facility] 56-[address] [place] [address] * (ABNORMAL) CBC (10/05/2023 11:15 AM EDT) WBC 8.67 4.00 - 10.80 K/uL 10/05/2023 11:26 AM EDT [facility] 56 RBC 3.43 3.85 - 5.15 M/uL 10/05/2023 11:26 AM EDT [address] HGB 10.5(L) 12.0 - 15.3 g/dL 10/05/2023 11:26 AM EDT [facility] 56 HCT 32.1(L) 36.0 - 45.2 % 10/05/2023 11:26 AM EDT [address] MCV 93.6 81.5 - 97.5 fL 10/05/2023 11:26 AM EDT [address] MCH 30.6 27.0 - 34.0 pg 10/05/2023 11:26 AM EDT [address] MCHC 32.7 32.0 - 36.0 g/dL 10/05/2023 11:26 AM EDT [address] RDW 17.4 11.5 - 15.5 % 10/05/2023 11:26 AM EDT [facility] 56 PLT 88(L) 140 - 400 K/uL 10/05/2023 11:26 AM EDT [address] MPV 9.4 6.6 - 11.1 fL 10/05/2023 11:26 AM T [facility] 56 Blood Venous blood specimen / Unknown Venipuncture / Unknown 10/05/2023 11:15 AM EDT 10/05/2023 11:21 AM EDT Steph Gomez PA-C LAB BLOOD ORDERABLES [facility] [address] [place] [address] * (ABNORMAL) COMPREHENSIVE METABOLIC PANEL (10/05/2023 11:15 AM EDT) BUN 25(H) 6 - 20 mg/dL 10/05/2023 11:57 AM EDT [address] Creatinine 1.2(H) 0.5 - 1.0 mg/dL 10/05/2023 11:57 AM [facility] 56 Estimated Glomerular Filtration Rate 52(L) >=60 mL/min 10/05/2023 11:57 AM [facility] 56 Comment:eGFR is calculated b ased on the CKD-EPI 2020 equation Sodium 137 135 - 146 mmol/L 10/05/2023 11:57 AM [facility] 56 Potassium 3.7 3.5 - 5.1 mmol/L 10/05/2023 11:57 AM [facility] 56 Chloride 102 98 - 107 mmol/L 10/05/2023 11:57 AM [facility] 56 CO2 22 22 - 32 mmol/L 10/05/2023 11:57 AM [facility] 56 Anion Gap 13 7 - 15 mmol/L 10/05/2023 11:57 AM [facility] 56 Glucose 199(H) 70 - 120 mg/dL 10/05/2023 11:57 AM [facility] 56 Albumin 2.8(L) 3.8 - 5.0 g/dL 10/05/2023 11:57 AM [facility] 56 AST 58(H) 10 - 35 U/L 10/05/2023 11:57 AM [facility] 56 Alkaline Phosphatase 112 35 - 130 U/L 10/05/2023 11:57 AM [facility] 56 Bilirubin, Total 2.6(H) <=1.2 mg/dL 10/05/2023 11:57 AM [facility] 56- Calcium 8.9 8.4 - 10.2 mg/dL 10/05/2023 11:57 AM [facility] 56 Protein 6.8 6.0 - 8.3 g/dL 10/05/2023 11:57 AM [facility] 56 ALT 15 10 - 35 U/L 10/05/2023 11:57 AM [facility] 56 Blood Venous blood specimen / Unknown Venipuncture / Unknown 10/05/2023 11:15 AM EDT 10/05/2023 11:21 AM EDT Steph Gomez PA-C LAB BLOOD ORDERABLES [facility] [address] [facility] [address] documented in this encounter Visit Diagnoses Diagnosis Viral gastroenteritis- Primary Intestinal infection due to other organism, not elsewhere classified Hypotension, unspecified hypotension type Lightheadedness Dizziness and giddiness Nausea and vomiting, unspecified vomiting type Diarrhea of presumed infectious origin Need for case management follow-up documented in this encounter Administered Medications Inactive Administered Medications - up to 3 most recent administrations Medication Order MAR Action Action Date Dose Rate Site NSS 0.9% 1,000 mL bolus infusion Intravenous, at 1,000 mL/hr Administer over 60 Minutes, Administer entire volume within 60 minutes or less., ONCE, 1 dose, On Tue10/05/23 at 1115 Start Infusion 10/05/2023 11:27 AM EDT 1,000 mL 1000 mL/hr ondansetron (Zofran) inj 4 mg 4 mg, IV Push, ONCE, On Tue10/05/23 at 1130, For 1 dose Given 10/05/2023 11:28 AM EDT 4 mg documented in this encounter Advance Directives * Full Code (Latest Code Status on File) Date Activated Date Inactivated Comments 07/11/2017 10:33 AM 07/11/2017 3:56 PM This order re flects the patients wishes and were consensually agreed upon. Care Teams Copy Cutter Relationship Specialty Start Date End Date Serene Lopez PA-C [address] [facility] [place] [address] PCP - General Physician Motor Adjuster 07/18/23 documented as of this encounter
--- OUTSIDE RECORDS SUMMARY | 2023-11-12 16:35 | External Medical Summary | Summary of Care ---
Author Name Unknown Organization [facility] Address [address] [place] [address] Phone [phone] Care Team Providers Care Nursing Instructor Name Role Phone Melchor Lopez PA-C Primary Care Provide r Reason for Visit * Reason Comments eRx-Medication Refill Encounter Details Date Type Department Care Team (Late st Contact Info) Description 10/10/2023 Refill General Internal Medicine [facility] [address] [facility] [place] [address] Meclhor Lopez PA-C [address] [place] [address] Type 2 diabetes mellitus with hemoglobin A1c goal of less than 7.0% ([facility]); Type 2 diabetes mellitus with stage 2 chronic kidney disease, without long-term current use of insulin ([facility]) Allergies Active Allergy Reactions Criticality Noted Date Comments Clindamycin 05/31/2017 Hives/ ER visit Glimepiride 05/03/2022 Empagliflozin 10/31/2018 Genital rash Sulfa Antibiotics Anaphylaxis 01/13/2007 documented as of this encounter (statuses as of 10/11/2023) Medications Medication Sig Dispensed Refills Start Date End Date Status OneTouch Ultra In Vitro Strip (Glucose Blood)Indications:T ype 2 diabetes mellitus with hemoglobin A1c goal of less than 7.0% (HCC),Type 2 diabetes mellitus with stage 2 chronic kidney disease, without long-term current use of insulin ([facility]) Use to test blood sugar once a day 100 Strip 3 1 Active Triamcinolone Acetonide 0.1 % External Ointment (Aristocort)Indicat ions:Plaque psoriasis Apply 2x daily to spots on R wrist/arms until resolved, then when flaring 454 g 1 3 Active Tacrolimus 0.1 % External Ointment (Protopic)Indicatio [...] long-term current use of insulin ([facility]) inject 40 units under the skin twice daily 75 mL 1 4 Active Pravastatin Sodium 40 MG Oral Tablet (Pravachol)Indicati ons:Type 2 diabetes mellitus with hemoglobin A1c goal of less than 7.0% ([facility]),Hyperlipidemi a with target LDL less than 100 TAKE ONE TABLET BY MOUTH AT BEDTIME 90 Tablet 1 4 Active Ramipril 5 MG Oral Capsule (Altace)Indications :Type 2 diabetes mellitus with hemoglobin A1c goal of less than 7.0% ([facility]),Type 2 diabetes mellitus with stage 2 chronic kidney disease, without long-term current use of insulin ([facility]) TAKE ONE CAPSULE BY MOUTH EVERY DAY 90 Capsule 1 4 Active metFORMIN HCl ER 500 MG Oral Tablet Extended Release 24 Hour (Glucophage XR)Indications:Type 2 diabetes mellitus with stage 2 chronic kidney disease, without long-term current use of insulin ([facility]) TAKE TWO TABLETS BY MOUTH IN THE MORNING. 180 Tablet 1 4 Active Ketoconazole 2 % External Cream Apply topically to affected area daily. Apply to rash under breasts/groin 60 g 3 4 Active Cephalexin 500 MG Oral Capsule (Keflex)Indications :Sepsis due to cellulitis ([facility]) Take 1 Capsule by mouth in the [...] goal of less than 7.0% ([facility]),Type 2 diabetes mellitus with stage 2 chronic kidney disease, without long-term current use of insulin (HCC) use with insulin twice daily 200 Each 1 4 Active BD Pen Needle Mini U/F 31G X 5 MM (Insulin Pen Needle)Indications: Type 2 diabetes mellitus with hemoglobin A1c goal of less than 7.0% (HCC),Type 2 diabetes mellitus with stage 2 chronic kidney disease, without long-term current use of insulin (HCC) use with insulin twice daily 200 Each 3 3 10/11/19 24 Discontinued documented as of this encounter (statuses as of 10/11/2023) Active Problems Problem Noted Date Diagnosed Date [...] as of this encounter (statuses as of 10/11/2023) Resolved Problems Problem Noted Date Diagnosed Date [...] as of this encounter (statuses as of 10/11/2023) Immunizations Name Administration Dates Next Due COVID-19 mRNA, LNP-s, No Pre serve, 2-Dose Series ([employer]) 07/03/2020 HEP A - Hepatitis A (Adult > 18 yrs) 10/13/2017, 03/08/2017 Hepatitis B, 20+ yrs 06/29/2017,01/26/2017,12/27 Pneumococcal Conjugate Vacci ne, 20-valent ([id number]) 08/24/2022 Pneumococcal Polysaccharide PPV23 (Pneumovax) 07/02/2011 Seasonal [...] encounter Miscellaneous Notes * Telephone Encounter - Berto Ingram [facility] - 10/11/2023 11:01 AM EDTSigned Prescriptions: Disp Refills BD Pen Needle Mini U/F 31G X 5 MM (Insulin*200 Ea*1 Sig: use with insulin twice dailyAuthorizing Provider: MELCHOR LOPEZ User: BERTO INGRAM--- documented in this encounter Plan of Treatment Upcoming Encounters Date Type Department Care Team (Late st Contact Info) Description 10/12/2023 2:40 PM EDT Office Visit General Internal Medicine [address] [place] [address] Berto Gomez PA-C [address] [place] [address] 12/27/2023 9:40 AM EDT Office Visit Hepatology, [facility] [address] [facility] [place] [id number] Sena Hancock MD [address] [place] [address] 12/30/2023 11:20 AM EDT Office Visit Family Practice [facility] [address] [place] [address] Annelise Kuhn MD [address] [place] [address] Health Maintenance Due Date Last Done Comments [...] Diagnoses Diagnosis Type 2 diabetes mellitus with hemoglobin A1c goal of less than 7.0% (HCC) Type 2 diabetes mellitus with stage 2 chronic kidney disease, without long-term current use of insulin (HCC) documented in this encounter Advance Directives * Full Code (Latest Code Status on File) Date Activated Date Inactivated Comments 07/11/2017 10:33 AM 07/11/2017 3:56 PM This order re flects the patients wishes and were consensually agreed upon. Care Teams Nursing Instructor Relationship Specialty Start Date End Date Melchor Lopez PA-C [address] [place] [address] PCP - General Physician Environmental Assistant 07/18/23 documented as of this encounter
--- OUTSIDE RECORDS SUMMARY | 2023-11-12 16:35 | External Medical Summary | Summary of Care ---
Author Name Unknown Organization [facility] Address [address] [place] [address] Phone [phone] Care Team Providers Care Stone Planer Name Role Phone Serene Lopez PA-C Primary Care Provide r Reason for Visit * Reason Onset Date Comments Health Maintenance 10/03/2023 Encounter Details Date Type Department Care Team (Late st Contact Info) Description 10/03/2023 Telephone Family Practice [facility] [address] [facility] [place] [address] Se[facility] [address] Health Maintenance Allergies Active Allergy Reactions Criticality Noted Date Comments Clindamycin 05/31/2017 Hives/ ER visit Glimepiride 05/03/2022 Empagliflozin 10/31/2018 Genital rash Sulfa Antibiotics Anaphylaxis 01/13/2007 documented as of this encounter (statuses as of 10/03/2023) Medications Medication Sig Dispensed Refills Start Date End Date Status OneTouch Ultra In Vitro Strip (Glucose Blood)Indications: Type 2 diabetes mellitus with hemoglobin A1c goal of less than 7.0% ([facility]),Type 2 diabetes mellitus with stage 2 chronic kidney disease, without long-term current use of insulin ([facility]) Use to test blood sugar [...] goal of less than 7.0% ([facility]),Type 2 diabetes mellitus with stage 2 chronic kidney disease, without long-term current use of insulin ([facility]) use with insulin twice daily [...] long-term current use of insulin ([facility]) inject 40 units under the skin twice daily 75 mL 1 07/16/2023 Active Potassium Chloride Kaci ER 20 MEQ Oral Tablet Extended Release Take 1 Tablet by mouth in the morning and 1 Tablet before bedtime. 07/14/2023 Active Pravastatin Sodium 40 MG Oral Tablet (Pravachol)Indicat ions:Type 2 diabetes mellitus with hemoglobin A1c goal of less than 7.0% ([facility]),Hyperlipidem ia with target LDL less than 100 TAKE ONE TABLET BY MOUTH AT BEDTIME 90 Tablet 1 07/21/2023 Active Ramipril 5 MG Oral Capsule (Altace)Indication s:Type 2 diabetes mellitus with hemoglobin A1c goal of less than 7.0% ([facility]),Type 2 diabetes mellitus with stage 2 chronic kidney disease, without long-term current use of insulin ([facility]) TAKE ONE CAPSULE BY MOUTH EVERY DAY 90 Capsule 1 07/21/2023 Active metFORMIN HCl ER 500 MG Oral Tablet Extended Release 24 Hour (Glucophage XR)Indications:Typ e 2 diabetes mellitus with stage 2 chronic kidney disease, without long-term current use of insulin ([facility]) TAKE TWO TABLETS BY MOUTH [...] as of this encounter (statuses as of 10/03/2023) Active Problems Problem Noted Date Diagnosed Date [...] as of this encounter (statuses as of 10/03/2023) Resolved Problems Problem Noted Date Diagnosed Date [...] as of this encounter (statuses as of 10/03/2023) Immunizations Name Administration Dates Next Due COVID-19 mRNA, LNP-s, No Pre serve, 2-Dose Series ([employer]) 07/03/2020 HEP A - Hepatitis A (Adult > 18 yrs) 10/13/2017, 03/08/2017 Hepatitis B, 20+ yrs 06/29/2017,01/26/2017,12/27 Pneumococcal Conjugate Vacci ne, 20-valent ([id number]) 08/24/2022 Pneumococcal Polysaccharide PPV23 (Pneumovax) 07/02/2011 Seasonal [...] encounter Miscellaneous Notes * Telephone Encounter - Alison Nichole LPN - 10/03/2023 9:12 AM EDT Care Gaps Comprehensive Care Outreach Last Office/Telemedicine Visit: 09/19/2023 (in office), Visit date not found (telemedicine) Next Office Visit: 12/30/2023 Hemoglobin AIC Results: Lab Results Component Value Date/Time HEMOGLOBIN A1C - [facility] 8.3 (H) 09/19/2023 01:43 PM HEMOGLOBIN A1C - [facility] 6.0 (H) 06/20/2023 12:27 PM HEMOGLOBIN A1C - [facility] 6.4 (H) 03/01/2023 09:03 AM HEMOGLOBIN A1C - [facility] 9.3 (H) 02/21/2020 09:36 AM HEMOGLOBIN A1C - [facility] 10.2 (H) 08/21/2019 11:53 AM HEMOGLOBIN A1C - [facility] 8.8 (H) 10/16/2018 09:46 AM BP Readings from Last 1 Encounters: 09/21/23 116/58 Reviewed Health Maintenance below: Health Maintenance Topic Date Due DTaP,Tdap,and Td Vaccines (1 - Tdap) Never done Mammogram Never done Colorectal Cancer Screening 04/16/2017 COVID-19 Vaccine (2 - Pfizer risk series) 07/24/2020 DXA Scan Never done Influenza Vaccine (FLU shot) (1) 12/04/2023 Mamm Colon Dexa All HM declined with pcp two weeks ago Care Gap Outreach Action Taken: Outreach not indicated documented in this encounter Plan of Treatment Upcoming Encounters Date Type Department Care Team (Late st Contact Info) Description 12/27/2023 9:40 AM EDT Office Visit Hepatology, [facility] [address] [facility] [place] [id number] Sena Hancock MD [address] [place] [address] 12/30/2023 11:20 AM EDT Office Visit Family Practice [facility] [place] [address] [facility] [place] [address] Annelise Kuhn MD [address] [facility] [place] [address] Health Maintenance Due Date Last Done Comments [...] 08/24/2021, Additional history exists GFR 07/17/2024 07/18/2023, 04/04/2023, 06/20/2023, Additional history exists Depression Monitoring 07/24/2024 07/25/2023 Lipid Panel 06/19/2028 06/20/2023, 08/03, 08/24/2021, Additional history exists Cervical Cancer Screening Discontinued Pap Smear Discontinued 01/18/2017 Hepatitis B Completed 06/29/2017, 01/03, 12/27/2016 Zoster Vaccines Completed 08/23/2021, 06/22/2021 Pneumococcal Vaccine: 65+ Years Completed 08/24/2022, 07/02/2011 GARDASIL-HPV IMMUNIZATION SERIES Aged Out No longer [...] and were consensually agreed upon. Care Teams Stone Planer Relationship Specialty Start Date End Date Serene Lopez PA-C [address] [place], [place] [address] PCP - General Physician Proof Tester 07/18/23 documented as of this encounter
--- OUTSIDE RECORDS SUMMARY | 2023-11-12 16:35 | External Medical Summary | Summary of Care ---
Author Name Unknown Organization [facility] Address [address] [place] [address] Phone [phone] Care Team Providers Care Quality Assurance Name Role Phone Serene Lopez PA-C Primary Care Provide r Reason for Visit * Reason Comments Re-Check Encounter Details Date Type Department Care Team (Late st Contact Info) Description 09/19/2023 12:40 PM EDT Office Visit Family Practice [facility] [address] [place] [address] Annelise Kuhn MD 200 [place] [address] Recurrent cellulitis of lower extremity*; Lymphedema; Type 2 diabetes mellitus with hemoglobin A1c goal of less than 7.0% ([facility]); Morbid obesity with BMI of 45.0-49.9, adult ([facility]) Allergies Active Allergy Reactions Criticality Noted Date Comments Clindamycin 05/31/2017 Hives/ ER visit Glimepiride 05/03/2022 Empagliflozin 10/31/2018 Genital rash Sulfa Antibiotics Anaphylaxis 01/13/2007 documented as of this encounter (statuses as of 10/18/2023) Medications Medication Sig Dispensed Refills Start Date End Date Status OneTouch Ultra In Vitro Strip (Glucose Blood)Indications :Type 2 diabetes mellitus with hemoglobin A1c goal of less than 7.0% ([facility]),Type 2 diabetes mellitus with stage 2 chronic kidney disease, without long-term current use of insulin ([facility]) Use to test blood sugar once a [...] long-term current use of insulin ([facility]) inject 40 units under the skin twice daily 75 mL 1 4 Active Pravastatin Sodium 40 MG Oral Tablet (Pravachol)Indica tions:Type 2 diabetes mellitus with hemoglobin A1c goal of less than 7.0% ([facility]),Hyperlipide shahida with target LDL less than 100 TAKE ONE TABLET BY MOUTH AT BEDTIME 90 Tablet 1 4 Active Ramipril 5 MG Oral Capsule (Altace)Indicatio ns:Type 2 diabetes mellitus with hemoglobin A1c goal of less than 7.0% ([facility]),Type 2 diabetes mellitus with stage 2 chronic kidney disease, without long-term current use of insulin ([facility]) TAKE ONE CAPSULE BY MOUTH EVERY DAY 90 Capsule 1 4 Active metFORMIN HCl ER 500 MG Oral Tablet Extended Release 24 Hour (Glucophage XR)Indications:Ty pe 2 diabetes mellitus with stage 2 chronic kidney disease, without long-term current use of insulin ([facility]) TAKE TWO TABLETS BY MOUTH IN THE MORNING. 180 Tablet 1 4 Active Ketoconazole 2 % External Cream Apply topically to affected area daily. Apply to rash under breasts/groin 60 g 3 4 Active QUEtiapine Fumarate 25 MG Oral Tablet (SEROquel)Indicat ions:Hallucinatio ns Take 1 Tablet by mouth at bedtime. 30 Tablet 1 4 Active BD Pen Needle Mini U/F 31G X 5 MM (Insulin Pen Needle)Indication s:Type 2 diabetes mellitus with hemoglobin A1c goal of less than 7.0% (HCC),Type 2 diabetes mellitus with stage 2 chronic kidney disease, without long-term current use of insulin (HCC) use with insulin twice daily 200 Each 3 3 10/11/19 24 Discontinued busPIRone HCl 7.5 MG Oral Tablet (Buspar) Take 1 Tablet by mouth 2 times a day. 4 09/19/19 24 Discontinued(Ref ill) Furosemide 40 MG Oral Tablet (Lasix) Take 0.5 Tablets by mouth in the morning and 0.5 Tablets before bedtime. 4 09/19/19 24 Discontinued(Ref ill) Potassium Chloride Kaci ER 20 MEQ Oral Tablet Extended Release Take 1 Tablet by mouth in the morning and 1 Tablet before bedtime. 4 10/05/19 24 Discontinued(Med ication List Clean Up) Furosemide 20 MG Oral Tablet (Lasix) Take 1 Tablet by mouth in the morning and 1 Tablet before bedtime. 09/19/19 24 Discontinued Cephalexin 500 MG Oral Capsule Take 1 Capsule by mouth in the morning and 1 Capsule at noon and 1 Capsule in the evening and 1 Capsule before bedtime. 09/19/19 24 Discontinued predniSONE 20 MG Oral Tablet (Deltasone)Indica tions:Dermatitis 1 tab 3 times a day for 3 days, then 1 tab 2 times a day for 3 days, then 1 tab daily for 3 days 18 Tablet 4 10/05/19 24 Discontinued(Med ication List Clean Up) Cephalexin 500 MG Oral Capsule (Keflex)Indicatio ns:Sepsis due to cellulitis (HCC) Take 1 Capsule by mouth in the morning and 1 Capsule before bedtime. Do all this for 28 days. 56 Capsule 4 10/12/19 24 documented as of this encounter (statuses as of 10/18/2023) Active Problems Problem Noted Date Diagnosed Date [...] as of this encounter (statuses as of 10/18/2023) Resolved Problems Problem Noted Date Diagnosed Date [...] as of this encounter (statuses as of 10/18/2023) Immunizations Name Administration Dates Next Due COVID-19 mRNA, LNP-s, No Pre serve, 2-Dose Series ([facility]) 07/03/2020 HEP A - Hepatitis A (Adult > 18 yrs) 10/13/2017, 03/08/2017 Hepatitis B, 20+ yrs 06/29/2017,01/26/2017,12/27 Pneumococcal Conjugate Vacci ne, 20-valent ([id number]) 08/24/2022 Pneumococcal Polysaccharide PPV23 (Pneumovax) 07/02/2011 Seasonal [...] Sign Reading Time Taken Comments Blood Pressure 130/60 09/19/2023 12:55 PM EDT Pulse 92 09/19/2023 12:55 PM EDT Temperature 37.7 C (99.8 F) 09/19/2023 12:55 PM E DT Respiratory Rate 20 09/19/2023 12:55 PM EDT Oxygen Saturation 97% 09/19/2023 12:55 PM EDT Inhaled Oxygen Concentration - - Weight 123.8 kg (273 lb) 09/19/2023 12:55 PM EDT Height - - Body Mass Index 44.72 12/13/2022 11:51 AM EDT documented in this encounter Progress Notes * Annelise Kuhn MD - 09/19/2023 12:54 PM EDT Subjective Chief Complaint Patient presents with Re-Check HPI: Juli Lewis is a 62 year old female. Patient is unaccompanied. The following issues were addressed today: Patient presents today for follow-up. Was seen on 08/16/23 following hospitalization for recurrent RLE cellulitis. She is currently on Keflex BID as prophylaxis per [facility] discharge instructions. She isscheduled to see infectious disease this week. Was referred to PT for lymphedema but has not yet est ablished. Continues to get cramping in her foot. Needed to stop driving because the cramping was sobad. On went to get out of bed and was unable to weight on foot. She denies any swelling. She is on Metformin 1000mg daily and insulin glargine 40 units BID. She states she has not been taking her insulin regularly. Last Hgb A1c was at goal. She is due for update. Declines colonoscopy, mammogram, and Pap smear. Review of Systems: See HPI Objective BP 130/60 | Pulse 92 | Temp 37.7 C (99.8 F) (Tympanic) | Resp 20 | Wt 123.8 kg (273 lb) | SpO2 97% | BMI 44.72 kg/m | BSA 2.39 m Wt Readings from Last 3 Encounters: 10/05/23 125.1 kg (275 lb 11.2 oz) 09/21/23 123.4 kg (272 lb) 09/19/23 123.8 kg (273 lb) BP Readings from Last 3 Encounters: 10/05/23 82/42 10/05/23 76/40 09/21/23 116/58 General: Well-appearing, no acute distress Cardiovascular: Regular rate and rhythm, no murmur Respiratory: Good respiratory effort, breath sounds equal and clear to auscultation bilaterally Extremities: Bilateral lower extremity edema from feet to knees, R >> L, thickened skin, milderythema on lower right extremity, no open wounds or drainage Neurological: Alert and oriented, no focal deficits noted Psychiatric: Appropriate mood and affect Hemoglobin AIC Results: Lab Results Component Value Date/Time HEMOGLOBIN A1C - [facility] 6.0 (H) 06/20/2023 12:27 PM HEMOGLOBIN A1C - [facility] 6.4 (H) 03/01/2023 09:03 AM HEMOGLOBIN A1C - [facility] 9.3 (H) 02/21/2020 09:36 AM HEMOGLOBIN A1C - [facility] 10.2 (H) 08/21/2019 11:53 AM HEMOGLOBIN A1C - [facility] 8.8 (H) 10/16/2018 09:46 AM Assessment & Plan 1. Recurrent cellulitis of lower extremity Continue Keflex 500mg BID and follow-up with ID as scheduled. 2. Lymphedema Encouraged to establish with physical therapy for lymphedema care. Referral provided at last visit.Weight loss recommended. 3. Type 2 diabetes mellitus with hemoglobin A1c goal of less than 7.0% ([facility]) Update Hgb A1c. Patient has missed insulin, encouraged to restart daily. Expect Hgb A1c to be increased, will follow-up when resulted. Continue Metformin. Discussed better BG control leads to less severe infection and faster healing time. - HEMOGLOBIN A1C; Future 4. Morbid obesity with BMI of 45.0-49.9, adult ([facility]) Discussed weight loss. Return in about 3 months (around 12/20/2023) for routine follow-up. This note was electronically signed by Annelise Kuhn MD documented in this encounter Nursing Notes * Darlene Hwang LPN - 09/19/2023 12:52 PM EDT Juli Lewis presents for 1 month recheck. Medications & HM reviewed. On last Tuesday right foot was itchy Tuesday started having extreme cramps all over foot for 2 days. went to get out of bed and was unable to weight on foot. Has not been able to put any weight on foot since . Constant pain. Unable to sleep. Says it doesn't appear to be swollen. documented in this encounter Plan of Treatment Upcoming Encounters Date Type Department Care Team (Late st Contact Info) Description 10/19/2023 9:20 AM EDT Office Visit General Internal Medicine [place] [address] [address] [place] [address] Steph Gomez PA-C [address] [place], [place] [address] [place] [address] 12/27/2023 9:40 AM EDT Office Visit Hepatology, [facility] [address] [facility] [place] [address] Sena Hancock MD [address] [place] [address] 12/30/2023 11:20 AM EDT Office Visit Family Practice [facility] [address] [place] [address] Annelise Kuhn MD [address] [facility] [place] [address] Health Maintenance Due Date Last Done Comments [...] as of this encounter Results * (ABNORMAL) HEMOGLOBIN A1C (09/19/2023 1:43 PM EDT) Hemoglobin A1C 8.3(H) 4.0 - 5.6 % 09/19/2023 11:43 PM EDT LABORATORY [facility] Comment:The use of HbA1c to monitor glycemic status is based on normal hemoglobin and HbA composition. This test should not be used in patients with abnormal hemoglobin that affects the half life of the red blood cell or the in vivo glycation rates. Estimated Average Glucose 192(H) <126 mg/dL 09/19/2023 11:43 PM EDT LABORATORY [facility] Blood Venous blood specimen / Unknown Venipuncture / Unknown 09/19/2023 1:43 PM EDT 09/19/2023 1:43 PM EDT Annelise Kuhn MD LAB BLOOD ORDERABLES LABORATORY [facility] [address] [place] [address] documented in this encounter Visit Diagnoses Diagnosis Recurrent cellulitis of lower extremity- Primary Lymphedema Other lymphedema Type 2 diabetes mellitus with hemoglobin A1c goal of less than 7.0% (HCC) Morbid obesity with BMI of 45.0-49.9, adult (HCC) Morbid obesity documented in this encounter Advance Directives * Full Code (Latest Code Status on File) Date Activated Date Inactivated Comments 07/11/2017 10:33 AM 07/11/2017 3:56 PM This order re flects the patients wishes and were consensually agreed upon. Care Teams Quality Assurance Relationship Specialty Start Date End Date Serene Lopez PA-C [address] [place] [address] PCP - General Physician Radiologic Technologist Chief 07/18/23 documented as of this encounter"
--- OUTSIDE RECORDS SUMMARY | 2023-11-12 16:35 | External Medical Summary ---
Author Name Unknown Address Unknown Organization [id number]:[facility] [address] [place] [address] Laboratory Report Ordering Provider Test Date Status AYDEE THOMSON 10/05/2023 11:15:43 Final Observation Date Value Abnormality Reference (Units ) Status SYNC LEUKOCYTES IN BLOOD BY AUTOMATED COUNT 10/05/2023 11:15:43 8.67 4.00-10.80 (K/uL) Final Segs 10/05/2023 11:15:43 74.3 40.0-75.0 (%) Final Lymphs % 10/05/2023 11:15:43 16.7 Below low normal 18.0-42.0 (%) Final Monos 10/05/2023 11:15:43 8.3 1.0-11.0 (%) Final Eosinophils 10/05/2023 11:15:43 0.5 0.0-6.0 (%) Final Basos 10/05/2023 11:15:43 0.2 0.0-2.0 (%) Final Absolute Segs 10/05/2023 11:15:43 6.44 1.80-7.70 (K/uL) Final Lymphs, absolute 10/05/2023 11:15:43 1.45 1.00-4.80 (K/ul) Final Monos, Abs 10/05/2023 11:15:43 0.72 0.00-1.10 (K/uL) Final Eos, Abs 10/05/2023 11:15:43 0.04 0.00-0.70 (K/uL) Final Basos, Abs 10/05/2023 11:15:43 0.02 0.00-0.20 (K/uL) Final Performing Location [facility] [address] [place] [address]
[2023-11-12 16:58] LABS: Basophils # (auto) 0.03 K/uL (0.00-0.20); Basophils % (auto) 0.4 %; Eosinophils # (auto) 0.07 K/uL (0.00-0.50); Eosinophils % (auto) 0.9 %; Hematocrit (blood only) 30.8 % (37.0-47.0); Hemoglobin 10.1 g/dl (12.0-16.0); Immature Granulocytes # (auto) 0.03 K/uL (0.01-0.20); Immature Granulocytes % (auto) 0.4 %; Lymphocytes # (auto) 0.38 K/uL (1.20-3.40); Lymphocytes % (auto) 4.9 %; Mean Corpuscular Hemoglobin 30.9 pg (25.0-34.0); Mean Corpuscular Hgb Conc 32.8 g/dL (32.0-36.0); Mean Corpuscular Volume 94.2 fL (80.0-100.0); Mean Platelet Volume 8.9 fL (9.4-12.4); Monocytes # (auto) 0.38 K/uL (0.11-0.59); Monocytes % (auto) 4.9 %; Neutrophils # (auto) 6.94 K/uL (1.40-6.50); Neutrophils % (auto) 88.5 %; Platelet Count 75 K/uL (130-400); RDW Coefficient of Variation 15.6 % (11.5-14.5); RDW Standard Deviation 54.4 fL (36.4-46.3); Red Blood Count 3.27 M/uL (4.20-5.40); White Blood Count 7.83 K/ul (4.8-10.8)
[2023-11-12 17:15] LABS: Appearance Urine Clear (Clear); Bacteria Urine Automated None Seen (None Seen); Bilirubin Urine Negative (Negative); Blood Urine Trace (Negative); Cast Urine Automated 0-2 /lpf (0-2); Color Urine Yellow; Glucose Urine UA Negative (Negative); Ketones Urine Negative (Negative); Leukocyte Esterase Urine Negative (Negative); Nitrite Urine Negative (Negative); Protein Urine Negative (Negative); RBC Urine Automated 0-2 /hpf (0-2); Urobilinogen Urine Negative (Negative); WBC Urine Automated 0-5 /hpf (0-5); pH Urine 5.5 (4.5-7.5)
[2023-11-12 17:16] LABS: Albumin Level 2.9 gm/dl (3.4-5.0); Bilirubin Direct 0.7 mg/dl (0-0.2); Bilirubin,Total 1.7 mg/dl (0.2-1.0); Calcium 8.6 mg/dl (8.6-10.3); Creatinine Clr Calc Pharmacy 69.4 ml/min; Est GFR (Non-African American) 52.6 ml/min; Magnesium 1.6 mg/dl (1.7-2.4)
[2023-11-12 17:22] LABS: Troponin I High Sensitivity 4.7 pg/ml (0-14)
--- NOTE | 2023-11-12 17:25 | CT Scan Report ---
CT OF THE ABDOMEN AND PELVIS WITHOUT CONTRAST CLINICAL HISTORY: Abdominal pain, nausea, vomiting and fever. COMPARISON STUDY: CT of the abdomen and pelvis August 07, 2023. TECHNIQUE: Axial images of the abdomen and pelvis were obtained without IV contrast. Images were revi ewed in the axial, sagittal, and coronal planes. Automated exposure control was utilized for the lucille dy. A dose lowering technique was utilized adhering to the principles of ALARA. FINDINGS: Lung bases are unremarkable. The liver is cirrhotic. No lesions are identified within the l iver although sensitivity is diminished on unenhanced exam. There is trace perihepatic ascites. Abdom inal and pelvic varices are again noted. Splenomegaly is unchanged. Unenhanced images of the adrenal glands, kidneys and pancreas are unremarkable. There is no hydronephrosis. As before, the left kidney is displaced due to the enlarged spleen. There is no evidence for a bowel obstruction. The appendix is not visualized but there is no right lower quadrant inflammation. There is no abdominal or pelvic lymphadenopathy. No acute fractures are identified within the visualized skeletal structures. A low-a ttenuation left adnexal lesion is again noted. There are no urinary calculi. There is no biliary duct al dilatation status post cholecystectomy. IMPRESSION: 1. No bowel obstruction. No bowel wall thickening on unenhanced exam. 2. Cirrhotic liver. Manifestations of portal hypertension including splenomegaly, varices formation a nd trace perihepatic ascites. 3. No urinary calculi or hydronephrosis. ACT 112: Negative or not required by law. Electronically signed by: Junior Isaacs M.D. 11/12/2023 5:23 PM
[2023-11-12] MEDS: ACETAMINOPHEN 325 MG TAB PO STA (17:35)
[2023-11-12] MEDS: cefTRIAXone SODIUM 2,000 MG/50 ML BAG IV STA (17:35)
[2023-11-12] MEDS: SODIUM CHLORIDE 0.9% 1,000 ML IV SCH ×2 (17:35→22:07)
--- NOTE | 2023-11-12 17:53 | History & Physical Report ---
Date of Service November 12, 2023 Assessment & Plan (1) Abdominal pain: (2) Cellulitis of right leg: (3) Hypomagnesemia: (4) Cirrhosis: (5) Thrombocytopenia: (6) Lymphedema: (7) Hyperlipidemia: (8) DM type 2 (diabetes mellitus, type 2): Plan: Abdominal pain Fever Possible viral gastroenteritis versus C. difficile enteritis - Ad[facility] to [facility] - Possible gastroenteritis, ? c diff, stool culture pending - Follow blood culture, Given dose of ceftriaxonein ER, will hold on further abx in the setting of exacerbating c diff, monitor -BioFire respiratory negative and CXR negative -NSS at 80 mL/h x 1 more bag, holding lasix -Allow clear liquid diet -Tylenol for fever or mild pain as needed - CT abd/pelvis reviewed Showing trace perihepatic ascites. Abdominal and pelvic varices are noted, splenomegaly, no hydronephrosis, left kidney displaced due to enlarged spleen, no bowel obstruction, no inflammation in the right lower quadrant, no abdominal or pelvic lymphadenopathy. Chest pain rule out HTN HLD -Repeat troponin at 2000 tonight, initial is negative -EKG is reviewed and negative, no ST wave inversions or signs of ischemia -Patient reports this is heaviness which started 0500, after having numerous episodes of nausea and vomiting -Last echocardiogram reviewed personally from June 2023 showing normal LVEF of 65%, no wall motion abnormalities, aortic valve sclerosis is mild, murmur heard on exam - HOLD lasix while giving 1 L fluids tonight, resume as able Hypomagnesium -Replaced with IV, trend with a.m. labs Cirrhosis, nonalcoholic Thrombocytopenia secondary to cirrhosis --Noted, no obvious ascites on exam -Continue home medications including Lasix 20 mg twice daily -Platelet count 77 on admission, trend History of right lower extremity cellulitis Lymphedema -Previously seen by infectious disease, Dr. Duron, finished course of Keflex x 28 days today 11/11, appears improved, monitor, no open wounds, elevate legs DM type II -Holding metformin, reduce lantus to 20 units BID until patient's oral intake improves -ISS with Accu-Cheks ACHS -Check A1c with a.m. labs DVT ppx: teds, scds, no chemical ppx in the setting of thrombocytopenia, day team to reassess. Lines: PIV x 1 FEN/GI: Clear liquid diet CODE: Full code Dispo: From home, likely to remain in the hospital x 1-2 days A total of 75 minutes were spent with greater than 50% of that time face to face with the patient, personally reviewing all current laboratories, imaging studies, past medication reconciliation, outpatient chart review, and discussion with specialists to collaborate care for the patient with attending. Please see attending documentation for corrections and/or additions. History of Present Illness Chief Complaint: Abdominal pain, n/v/d Primary Care Provider: Annelise Kuhn MD This is a 63 yo F with PMHx cirrhosis, CKD stage IV, of multiple hospital admission, last was in August 2023 for RLE cellulitis and sepsis, diarrhea, SATHYA on CKD. Other PMHx includes DM II, HTN, Nonalcoholic cirrhosis of the liver, chronic thrombocytopenia due to liver disease. She has tested positive for c. diff previously. Today pt acutely developed abdominal pain,after waking up around 4am with associated nausea and vomiting x 8 today, diarrhea x 10 today. Denies any blood in either emesis or diarrhea. She finished antibiotic for her cellulitis of the RLE this morning. Pt had been on the antibiotic for ~3 week timeframe per PCP and infectious disease. She reports having fever of 103.1 upon arrival to the ER today. She denies any cough, shortness of breath. She feels some chest pain and felt heaviness which is like she normally has had after other bouts of nausea and vomiting. That occurred at 0500 this morning and felt it down the left arm, it is resolved at this time. Reports radiation of the pain into her left arm during that time, no associated shortness of breath. She has never had cardiac etiology. Pt did have an echocardiogram during previous hospitalization this spring for sepsis. She is taking her medications routinely and did this morning but does not know if it stayed in her system due to vomiting. Pt has not eaten today. Pt lives at home by herself, normally manages things on her own, and walks independently. Pt reports the lower leg is 85% better than what it was when she was in the hospital previously. She also complains of gouty pain in the right foot. Allergies Allergy/AdvReac Type Severity Reaction Status Date / Time Sulfa (Sulfonamide Allergy Severe ANAPHYLAXIS--SWELLING, Verified 11/12/23 17:35 Antibiotics) HIVES clindamycin Allergy Intermediate HIVES-ER Verified 11/12/23 17:35 VISIT glimepiride Allergy Unknown ON Verified 11/12/23 17:35 [facility] empagliflozin AdvReac Intermediate Vaginal Verified 11/12/23 17:35 [From [place]] irritation Home Medications Medication Instructions Recorded Confirmed Type pravastatin 40 mg tablet 40 mg PO HS 05/26/18 11/12/23 History insulin glargine 100 unit/mL (3 40 unit (0.4 mL) subcut BID #15 mL 04/25/20 11/12/23 Rx mL) subcutaneous pen (Basaglar KwikPen U-100 Insulin) triamcinolone acetonide 0.1 % 1 applic topical DAILY PRN Rash 05/01/22 11/12/23 History topical cream metformin 500 mg tablet,extended 1,000 mg PO DAILY 05/14/22 11/12/23 History release 24 hr clobetasol 0.05 % topical ointment 1 applic topical BID PRN Rash 06/25/23 History tacrolimus 0.1 % topical ointment 1 applic topical BID PRN NEEDED 06/25/23 11/12/23 History buspirone 7.5 mg tablet 7.5 mg PO BID #60 tabs 06/30/23 11/12/23 Rx furosemide 40 mg tablet 20 mg PO BID 11/12/23 11/12/23 History ketoconazole 2 % topical cream 1 applic topical DIRECTED PRN 11/12/23 11/12/23 History RASH UNDER BREASTS/GROIN naproxen 500 mg tablet 500 mg PO BID PRN Pain 11/12/23 11/12/23 History ondansetron 4 mg disintegrating 4 mg translingual Q8H PRN 11/12/23 11/12/23 History tablet NAUSEA/VOMITING quetiapine 25 mg tablet 25 mg PO HS 11/12/23 11/12/23 History Past Med/Surg History Problem List Abdominal pain Lymphedema (Acute) Cirrhosis (Acute) Hypomagnesemia (Acute) Cellulitis of right leg (Acute) Sepsis (Acute) UTI (urinary tract infection) (Acute) Cellulitis of right lower extremity (Acute) Sepsis (Acute) Severe sepsis Viral gastroenteritis Cirrhosis (Chronic) Hyperlipidemia Lymphedema Morbid obesity Anxiety Side effect of medication Diarrhea (Acute) Acute hyperventilation (Acute) Chest pain (Acute) Obesity Diastolic dysfunction Cellulitis of right foot (Acute) Cellulitis of leg, right (Acute) Thrombocytopenia HTN (hypertension) DM type 2 (diabetes mellitus, type 2) (Acute) History of hysteroscopy S/P cholecystectomy (Acute) Medical History SATHYA (acute kidney injury) Nausea, vomiting and diarrhea Sleep apnea Rosacea Peripheral neuropathy Spleen enlargement Chronic kidney disease STAGE 2 History of asthma Surgical History History of tooth extraction History of cataract surgery RT/LEFT H/O dilation and curettage Family History Sister Cervical cancer Mother Liver disease Other No family history of adverse response to anesthesia Social History Smoking Status: Never smoker Second Hand Exposure: No; Do You Dip or Chew Tobacco: No; Hx Alcohol Use: No Hx Substance Use: No Preferred Language: Romansh Communication Ability: Effective Visual Impairment: No Limitations Hearing Ability: Normal Ankle Patch Molder Required: No Beliefs That Will Affect Care: None Current Living Situation: Alone Feels Safe at Home: Yes Assistive Devices: Cane and Walker Review of Systems Review of Systems: Constitutional: + fever, sweats or chills Eyes: No diplopia, no worsening or blurred vision ENT: normal hearing, no trouble swallowing Respiratory: No cough, sputum, dyspnea at rest or on exertion Cardiovascular: No chest pain, tightness or palpitations Abdomen: + diffuse periumbilical pain, +nausea, +vomiting, + diarrhea or constipation Musculoskeletal: No joint pain, calf pain, + chronic swelling Neurologic: No weakness, numbness/tingling, or balance problems Psychiatric: No anxiety or depression Skin: No rash or itch, RLE cellulitis is nearly resolved Physical Exam Physical Exam: Please refer to attending addendum. Results & Data Results & Data Vital Signs (Past 12 Hours) Vital Signs Temp Pulse Resp BP Pulse Ox 11/12/23 16:43 94 H 11/12/23 16:15 38.1 C H 89 24 124/74 98 Laboratory Results 11/12/23 17:30 Aerobic Blood Culture - Pending Blood Anaerobic Blood Culture - Pending 11/12/23 16:42 WBC 7.83 RBC 3.27 L Hgb 10.1 L Hct 30.8 L MCV 94.2 MCH 30.9 MCHC 32.8 RDW Std Deviation 54.4 H RDW Coeff of Melissa 15.6 H Plt Count 75 L MPV 8.9 L Immature Gran % (Auto) 0.4 Neut % (Auto) 88.5 Lymph % (Auto) 4.9 Bartholomew % (Auto) 4.9 Eos % (Auto) 0.9 Baso % (Auto) 0.4 Neut # (Auto) 6.94 H Lymph # (Auto) 0.38 L Bartholomew # (Auto) 0.38 Eos # (Auto) 0.07 Baso # (Auto) 0.03 Immature Gran # (Auto) 0.03 Sodium 137 Potassium 4.0 Chloride 103 Carbon Dioxide 27 Anion Gap 7 BUN 22 Creatinine 1.10 Est Cr Clr Drug Dosing 69.4 Est GFR ( Amer) 61.0 Est GFR (Non-Af Amer) 52.6 BUN/Creatinine Ratio 20.0 Glucose 162 H Lactate 1.9 Calcium 8.6 Magnesium 1.6 L Total Bilirubin 1.7 H Direct Bilirubin 0.7 H AST 25 ALT 13 Alkaline Phosphatase 123 H Troponin I High Sens 4.7 Total Protein 7.0 Albumin 2.9 L Procalcitonin 0.06 Urine Color Yellow Urine Appearance Clear Urine pH 5.5 Ur Specific [place] 1.010 Urine Protein Negative Urine Glucose (UA) Negative Urine Ketones Negative Urine Blood Trace H Urine Nitrite Negative Urine Bilirubin Negative Urine Urobilinogen Negative Ur Leukocyte Esterase Negative Urine WBC (Auto) 0-5 Urine RBC (Auto) 0-2 U Hyaline Cast (Auto) 0-2 U Epithel Cells (Auto) 3-5 H Urine Bacteria (Auto) None Seen Diagnostic Findings Abdomen/Pelvis CT 11/12/23 16:32 CT OF THE ABDOMEN AND PELVIS WITHOUT CONTRAST CLINICAL HISTORY: Abdominal pain, nausea, vomiting and fever. COMPARISON STUDY: CT of the abdomen and pelvis August 07, 2023. TECHNIQUE: Axial images of the abdomen and pelvis were obtained without IV contrast. Images were reviewed in the axial, sagittal, and coronal planes. Automated exposure control was utilized for the study. A dose lowering technique was utilized adhering to the principles of ALARA. FINDINGS: Lung bases are unremarkable. The liver is cirrhotic. No lesions are identified within the liver although sensitivity is diminished on unenhanced exam. There is trace perihepatic ascites. Abdominal and pelvic varices are again noted. Splenomegaly is unchanged. Unenhanced images of the adrenal glands, kidneys and pancreas are unremarkable. There is no hydronephrosis. As before, the left kidney is displaced due to the enlarged spleen. There is no evidence for a bowel obstruction. The appendix is not visualized but there is no right lower quadrant inflammation. There is no abdominal or pelvic lymphadenopathy. No acute fractures are identified within the visualized skeletal structures. A low- attenuation left adnexal lesion is again noted. There are no urinary calculi. There is no biliary ductal dilatation status post cholecystectomy. IMPRESSION: 1. No bowel obstruction. No bowel wall thickening on unenhanced exam. 2. Cirrhotic liver. Manifestations of portal hypertension including splenomegaly, varices formation and trace perihepatic ascites. 3. No urinary calculi or hydronephrosis. ACT 112: Negative or not required by law. Electronically signed by: Junior Isaacs M.D. 11/12/2023 5:23 PM ECG Additional Comments: No ST wave elevation or depressions, NSR Code Status & VTE Plan Code Status Full code - discussed with the patient at bedside Supervising Physician Co-Signing Physician Notes Attending Addendum: Case reviewed with the advanced practitioner. I have personally performed a history and physical examination on the patient. I have reviewed the advanced practitioner's documentation on the date of service referenced in note, and I agree with, and take responsibility for the plan of care. please refer to her notes for full details patient seen and examined, records reviewed by myself as well on exam, patient Seen resting in bed, sitting up, comfortable, not in distress States she is feeling improved since admission Nausea vomiting resolving No diarrhea since arrival at the ER Reports left-sided chest pain this morning, started before nausea and vomiting episodes, but progressed after having several emesis no other symptoms VS noted and reviewed General- oriented x 3, not in distress, speaks in sentences with no effort or accessory muscle use Head- atraumatic Eyes- PERRL, EOMI, anicteric ENT- oropharynx clear Neck- supple, no JVD, no adenopathy, no thyromegaly; carotids +2/2, no bruits appreciated Lungs- clear to auscultation bilaterally, no rales/wheezes Heart- normal rate, regular rhythm; Positive grade 2 holosystolic murmur, no gallop, no rub appreciated Abdomen- Hyperactive bowel sounds, nondistended, soft, Mild tenderness on all quadrants, no masses or hepatosplenomegaly Extremities- Right lower leg: Chronic lymphedema, scaly skin, moderate erythema and warmth noted Left lower leg:Mild pretibial edema, no calf tenderness; peripheral pulses intact Neuro- alert, oriented x 3; CN 2-12 grossly intact; motor 5/5 bilateral ly;sensation 100% on all extremities; no other gross focal neurologic deficits Skin- warm & dry all labs, imaging noted and reviewed ASSESSMENT AND PLAN> Nausea/vomiting, diarrhea, fever Likely gastroenteritis Rule out C. difficile colitis CT abdomen and pelvis: Unrevealing Received 1 dose of IV ceftriaxone at the ER Stool PCR, C. difficile test pending Hold off on further antibiotics until C. difficile test is available Supportive care with gentle IV fluids, antiemetics Chest x-ray, urinalysis, BioFire: Negative Patient completed 3-week course of cephalexin p.o. for recurrent right lower leg cellulitis; she states that her leg looks at least 90% better compared to last month; hold off on further antibiotics for now specially with suspicion of possible C. difficile colitis Left-sided chest pain Likely secondary to nausea and vomiting Initial troponin negative, EKG no signs of acute ischemia or infarct Check second troponin at 10 PM other diagnoses and plan of care as per advanced practitioner's notes Harry Vásquez MD (4) Cirrhosis Ascites presence: unspecified Hepatic cirrhosis type: unspecified hepatic cirrhosis Qualified Code(s): K74.60 - Unspecified cirrhosis of liver (8) DM type 2 (diabetes mellitus, type 2) Chronic kidney disease stage: stage 2 (mild) Diabetes mellitus complication detail: with chronic kidney disease Diabetes mellitus complication status: with kidney complications Diabetes mellitus tank terminal gauger insulin use: with tank terminal gauger use Qualified Code(s): E11.22 - Type 2 diabetes mellitus with diabetic chronic kidney disease; N18.2 - Chronic kidney disease, stage 2 (mild); Z79.4 - intermission coordinator (current) use of insulin
[2023-11-12 18:01] LABS: Adenovirus PCR Not Detected (NotDetected); Bordetella parapertussis PCR Not Detected (NotDetected); Bordetella pertussis PCR Not Detected (NotDetected); Chlamydia pneumoniae PCR Not Detected (NotDetected); Coronavirus 229E PCR Not Detected (NotDetected); Coronavirus CoV-2 (COVID19)PCR Not Detected (NotDetected); Coronavirus HKU1 PCR Not Detected (NotDetected); Coronavirus NL63 PCR Not Detected (NotDetected); Coronavirus OC43PCR Not Detected (NotDetected); Human Metapneumovirus PCR Not Detected (NotDetected); Influenza A PCR Not Detected (NotDetected); Influenza B PCR Not Detected (NotDetected); Mycoplasma pneumoniae PCR Not Detected (NotDetected); Parainfluenza Virus 1 PCR Not Detected (NotDetected); Parainfluenza Virus 2 PCR Not Detected (NotDetected); Parainfluenza Virus 3 PCR Not Detected (NotDetected); Parainfluenza Virus 4 PCR Not Detected (NotDetected); Respiratory Syncytial VirusPCR Not Detected (NotDetected); Rhinovirus/Enterovirus PCR Not Detected (NotDetected)
[2023-11-12] MEDS: MAGNESIUM SULFATE / D5W 1 GM/100 ML BAG IV ONE (18:04)
--- NOTE | 2023-11-12 18:32 | XRay Report ---
XR chest 1V portable CLINICAL HISTORY: Sepsis. COMPARISON STUDY: Chest radiograph August 07, 2023. FINDINGS: Lung volumes are normal. Lungs are clear. There is no pneumothorax or pleural effusion. Mil d cardiomegaly is unchanged. Mediastinal contours are normal. There is no evidence for pulmonary tristen a. IMPRESSION: No acute cardiopulmonary findings. No change in appearance of the chest. ACT 112: Negative or not required by law. Electronically signed by: Junior Isaacs M.D. 11/12/2023 6:30 PM
[2023-11-12] MEDS ORDERED: ONDANSETRON INJ 2 MG/ML 2 ML VIAL IV PRN (20:23)
[2023-11-12] MEDS ORDERED: GLUCAGON FOR INJ 1 MG VIAL SQ PRN ×2 (20:23)
[2023-11-12] MEDS ORDERED: ACETAMINOPHEN 325 MG TAB PO PRN (20:23)
[2023-11-12] MEDS ORDERED: TRIAMCINOLONE ACET 0.1% CR 15 GM TUBE TOP PRN (20:23)
[2023-11-12] MEDS ORDERED: GLUCOSE 40% GEL 15 GM TUBE PO PRN ×2 (20:23)
[2023-11-12] MEDS ORDERED: CARBOHYDRATES FOR HYPOGLYCEMIA PO PRN ×2 (20:23)
[2023-11-12] MEDS ORDERED: CLOBETASOL PROPIONATE 0.05% OINT 15 GM TUBE EXT PRN (20:23)
[2023-11-12] MEDS ORDERED: GLUCOSE 10 TAB/TUBE PO PRN ×2 (20:23)
[2023-11-12] MEDS ORDERED: DEXTROSE 50% 50 ML SYRINGE IV PRN ×2 (20:23)
[2023-11-12] MEDS: PRAVASTATIN SOD 40 MG TAB PO SCH (22:06)
[2023-11-12] MEDS: QUEtiapine FUMARATE 25 MG TABLET PO SCH (22:06)
[2023-11-12] MEDS: busPIRone 7.5 MG TAB PO SCH (22:07)
[2023-11-12] MEDS: INSULIN ASPART PER UNIT CHARGE SC SCH (22:14)
[2023-11-12] MEDS: LANTUS PER UNIT CHARGE SQ ONE (22:15)
[2023-11-13 07:12] LABS: Estimated Average Glucose 123 mg/dl; Hemoglobin A1C 5.9 % (4.5-5.6)
[2023-11-13 07:15] LABS: Hematocrit (blood only) 26.2 % (37.0-47.0); Hemoglobin 8.8 g/dl (12.0-16.0); Mean Corpuscular Hemoglobin 31.3 pg (25.0-34.0); Mean Corpuscular Hgb Conc 33.6 g/dL (32.0-36.0); Mean Corpuscular Volume 93.2 fL (80.0-100.0); Platelet Count 58 K/uL (130-400); RDW Coefficient of Variation 15.9 % (11.5-14.5); RDW Standard Deviation 54.9 fL (36.4-46.3); Red Blood Count 2.81 M/uL (4.20-5.40); White Blood Count 5.42 K/ul (4.8-10.8)
[2023-11-13 07:42] LABS: BUN Creatinine Ratio 18.9 (10-20); Creatinine Clr Calc Pharmacy 68.7 ml/min; Est GFR (African American) 60.4 ml/min; Est GFR (Non-African American) 52.1 ml/min; Magnesium 1.7 mg/dl (1.7-2.4)
[2023-11-13 07:46] VITALS: RESP 16; TEMP 98.6
--- NOTE | 2023-11-13 08:21 | Electrocardiogram Report ---
Test Reason : Blood Pressure : */* mmHG Vent. Rate : 81 BPM Atrial Rate : 81 BPM P-R Int : 188 ms QRS Dur : 124 ms QT Int : 386 ms P-R-T Axes : 38 29 25 degrees QTcB Int : 448 ms Normal sinus rhythm Right bundle branch block Abnormal ECG When compared with ECG of 07-Aug-2023 19:05, No significant change Confirmed by Miky Carrero ([id number]) on 11/13/2023 8:20:37 AM Referred By: REFERRED SELF Confirmed By: Miky Carrero
--- NOTE | 2023-11-13 08:28 | Hospitalist Progress Note ---
Date of Service November 13, 2023 Assessment & Plan (1) Abdominal pain: (2) Cellulitis of right leg: (3) Hypomagnesemia: (4) Cirrhosis: (5) Thrombocytopenia: (6) Lymphedema: (7) Hyperlipidemia: (8) DM type 2 (diabetes mellitus, type 2): Plan: Abdominal pain Fever Possible viral gastroenteritis versus C. difficile enteritis - Ad[facility] to [facility] - Possible gastroenteritis, ? c diff, stool culture pending - Follow blood culture, Given dose of ceftriaxonein ER, will hold on further abx in the setting of exacerbating c diff, monitor -BioFire respiratory negative and CXR negative -NSS at 80 mL/h x 1 more bag, holding lasix -Allow clear liquid diet -Tylenol for fever or mild pain as needed - CT abd/pelvis reviewed Showing trace perihepatic ascites. Abdominal and pelvic varices are noted, splenomegaly, no hydronephrosis, left kidney displaced due to enlarged spleen, no bowel obstruction, no inflammation in the right lower quadrant, no abdominal or pelvic lymphadenopathy. Chest pain rule out HTN HLD -Repeat troponin at 2000 tonight, initial is negative -EKG is reviewed and negative, no ST wave inversions or signs of ischemia -Patient reports this is heaviness which started 0500, after having numerous episodes of nausea and vomiting -Last echocardiogram reviewed personally from June 2023 showing normal LVEF of 65%, no wall motion abnormalities, aortic valve sclerosis is mild, murmur heard on exam - HOLD lasix while giving 1 L fluids tonight, resume as able Hypomagnesium -Replaced with IV, trend with a.m. labs Cirrhosis, nonalcoholic Thrombocytopenia secondary to cirrhosis --Noted, no obvious ascites on exam -Continue home medications including Lasix 20 mg twice daily -Platelet count 77 on admission, trend History of right lower extremity cellulitis Lymphedema -Previously seen by infectious disease, Dr. Duron, finished course of Keflex x 28 days today 11/11, appears improved, monitor, no open wounds, elevate legs DM type II -Holding metformin, reduce lantus to 20 units BID until patient's oral intake improves -ISS with Accu-Cheks ACHS -Check A1c with a.m. labs DVT ppx: teds, scds, no chemical ppx in the setting of thrombocytopenia, day team to reassess. Lines: PIV x 1 FEN/GI: Clear liquid diet CODE: Full code Dispo: From home, likely to remain in the hospital x 1-2 days A total of 75 minutes were spent with greater than 50% of that time face to face with the patient, personally reviewing all current laboratories, imaging studies, past medication reconciliation, outpatient chart review, and discussion with specialists to collaborate care for the patient with attending. Please see attending documentation for corrections and/or additions. Admission and Anticipated Discharge Date Admission Date: November 12, 2023 Results & Data Results & Data Vital Signs (Past 12 Hours) Vital Signs Temp Pulse Resp BP Pulse Ox O2 Del Method 11/13/23 07:45 37.0 C 75 16 99/61 L 96 Room Air 11/12/23 23:15 Room Air (4) Cirrhosis Ascites presence: unspecified Hepatic cirrhosis type: unspecified hepatic cirrhosis Qualified Code(s): K74.60 - Unspecified cirrhosis of liver (8) DM type 2 (diabetes mellitus, type 2) Chronic kidney disease stage: stage 2 (mild) Diabetes mellitus complication detail: with chronic kidney disease Diabetes mellitus complication status: with kidney complications Diabetes mellitus fpc insulin use: with fpc use Qualified Code(s): E11.22 - Type 2 diabetes mellitus with diabetic chronic kidney disease; N18.2 - Chronic kidney disease, stage 2 (mild); Z79.4 - tank terminal gauger (current) use of insulin
--- NOTE | 2023-11-13 10:56 | Discharge Summary ---
Discharge Summary Date of Service November 13, 2023 Principal Dx & Hospital Course #1 = Principal Diagnosis (1) Abdominal pain: (2) Cellulitis of right leg: (3) Hypomagnesemia: (4) Cirrhosis: (5) Thrombocytopenia: (6) Lymphedema: (7) Hyperlipidemia: (8) DM type 2 (diabetes mellitus, type 2): Plan Pt is a 63yoF with PMHx significant for Nonalcoholic cirrhosis of the liver, chronic thrombocytopenia due to liver disease, CKD stage IV, diarrhea, SATHYA on CKD, DM II, HTN presenting with intractable N/V. Admitted with Abdominal pain Fever Possible viral gastroenteritis versus C. difficile enteritis Pt with intractable N/V and abdominal pain with noted fever. No noted jaundice, pt with chronically elevated LFTs in setting of cirrhosis. Biofire negative CT abd/pelvis reviewed, noted "trace perihepatic ascites. Abdominal and pelvic varices are noted, splenomegaly, no hydronephrosis, left kidney displaced due to enlarged spleen, no bowel obstruction, no inflammation in the right lower quadrant, no abdominal or pelvic lymphadenopathy." Pt unable to give stool sample for culture or c diff testing while hospitalized, no further BMs as symptoms improved. Possible gastroenteritis She was treated with IV fluids and her diet was advanced to a regular one which she tolerated well before discharge. No antibiotics were continued on admission as her symptoms were deemed acutely viral. She did receive a dose of rocephin in the ED for RLE cellulitis that she completed oral antibiotic rx for on 11/11. On day of discharge, pt noted being free from presenting symptoms and wanted to go home. Discharged in stable condition with close PCP and GI followup. Chest pain rule out HTN HLD Patient reports this is heaviness which started 0500, after having numerous episodes of nausea and vomiting Trop x2 normal EKG without signs of ischemia Last echocardiogram from June 2023 showing normal LVEF of 65%, no wall motion abnormalities, aortic valve sclerosis is mild, murmur heard on exam Resume home meds on discharge PCP followup Hypomagnesium repleted as needed Cirrhosis, nonalcoholic Thrombocytopenia secondary to cirrhosis Elevated Liver Enzymes Stable Continue home medications including Lasix 20 mg twice daily History of right lower extremity cellulitis Lymphedema Previously seen by infectious disease, Dr. Duron, finished course of Keflex x 28 days on day of admission 11/11 As noted above, she did receive a dose of rocephin in the ED for RLE cellulitis Stable, monitor, no open wounds, elevate legs PCP followup DM type II Held metformin, reduced lantus to 20 units BID until patient's oral intake improves Hgba1c of 5.9 Resume home regimen on discharge PCP followup Notes For Next Care Provider please ensure followup of above Please ensure followup with GI Medication Changes From Visit Zofran 4mg q8h prn Admission HPI Per Admitting Provider This is a 63 yo F with PMHx cirrhosis, CKD stage IV, of multiple hospital admission, last was in August 2023 for RLE cellulitis and sepsis, diarrhea, SATHYA on CKD. Other PMHx includes DM II, HTN, Nonalcoholic cirrhosis of the liver, chronic thrombocytopenia due to liver disease. She has tested positive for c. diff previously. Today pt acutely developed abdominal pain,after waking up around 4am with asso ciated nausea and vomiting x 8 today, diarrhea x 10 today. Denies any blood in either emesis or diarrhea. She finished antibiotic for her cellulitis of the RLE this morning. Pt had been on the antibiotic for ~3 week timeframe per PCP and infectious disease. She reports having fever of 103.1 upon arrival to the ER today. She denies any cough, shortness of breath. She feels some chest pain and felt heaviness which is like she normally has had after other bouts of nausea and vomiting. That occurred at 0500 this morning and felt it down the left arm, it is resolved at this time. Reports radiation of the pain into her left arm during that time, no associated shortness of breath. She has never had cardiac etiology. Pt did have an echocardiogram during previous hospitalization this spring for sepsis. She is taking her medications routinely and did this morning but does not know if it stayed in her system due to vomiting. Pt has not eaten today. Pt lives at home by herself, normally manages things on her own, and walks independently. Pt reports the lower leg is 85% better than what it was when she was in the hospital previously. She also complains of gouty pain in the right foot. Admission Exam Per Admitting Provider VS noted and reviewed General- oriented x 3, not in distress, speaks in sentences with no effort or accessory muscle use Head- atraumatic Eyes- PERRL, EOMI, anicteric ENT- oropharynx clear Neck- supple, no JVD, no adenopathy, no thyromegaly; carotids +2/2, no bruits appreciated Lungs- clear to auscultation bilaterally, no rales/wheezes Heart- normal rate, regular rhythm; Positive grade 2 holosystolic murmur, no gallop, no rub appreciated Abdomen- Hyperactive bowel sounds, nondistended, soft, Mild tenderness on all quadrants, no masses or hepatosplenomegaly Extremities- Right lower leg: Chronic lymphedema, scaly skin, moderate erythema and warmth noted Left lower leg:Mild pretibial edema, no calf tenderness; peripheral pulses intact Neuro- alert, oriented x 3; CN 2-12 grossly intact; motor 5/5 bilaterally;sensation 100% on all extremities; no other gross focal neurologic deficits Skin- warm & dry Discharge Exam General: Alert, oriented. No acute distress Skin: No noted rashes or bruises Psych: Appropriate mood and affect Neuro: No gross deficits HEENT: NC/AT CV: RRR Resp: Breath sounds clear bilaterally, no increased effort of breathing. Abdomen:Soft, nontender, protuberant Extremities: Edema in lower extremities, RLE with slight erythema and swelling compared to the left. Updated Medication List Medication Instructions Recorded Confirmed Type pravastatin 40 mg tablet 40 mg PO HS 05/26/18 11/12/23 History insulin glargine 100 unit/mL (3 40 unit (0.4 mL) subcut BID #15 mL 04/25/20 11/12/23 Rx mL) subcutaneous pen (Basaglar KwikPen U-100 Insulin) triamcinolone acetonide 0.1 % 1 applic topical DAILY PRN Rash 05/01/22 11/12/23 History topical cream metformin 500 mg tablet,extended 1,000 mg PO DAILY 05/14/22 11/12/23 History release 24 hr clobetasol 0.05 % topical ointment 1 applic topical BID PRN Rash 06/25/23 11/12/23 History tacrolimus 0.1 % topical ointment 1 applic topical BID PRN NEEDED 06/25/23 11/12/23 History buspirone 7.5 mg tablet 7.5 mg PO BID #60 tabs 06/30/23 11/12/23 Rx furosemide 40 mg tablet 20 mg PO BID 11/12/23 11/12/23 History ketoconazole 2 % topical cream 1 applic topical DIRECTED PRN 11/12/23 11/12/23 History RASH UNDER BREASTS/GROIN naproxen 500 mg tablet 500 mg PO BID PRN Pain 11/12/23 11/12/23 History quetiapine 25 mg tablet 25 mg PO HS 11/12/23 11/12/23 History ondansetron 4 mg disintegrating 4 mg PO Q8H PRN nausea and 11/13/23 Rx tablet vomiting #30 tabs Hospital Stay Data Consultations 11/12/23 17:28 ED Decision to Admit Stat Diagnostic Imagining Performed 11/12/23 16:32 CT abd pelvis wo con Stat Abdomen/Pelvis CT 11/12/23 16:32 CT OF THE ABDOMEN AND PELVIS WITHOUT CONTRAST CLINICAL HISTORY: Abdominal pain, nausea, vomiting and fever. COMPARISON STUDY: CT of the abdomen and pelvis August 07, 2023. TECHNIQUE: Axial images of the abdomen and pelvis were obtained without IV contrast. Images were reviewed in the axial, sagittal, and coronal planes. Automated exposure control was utilized for the study. A dose lowering technique was utilized adhering to the principles of ALARA. FINDINGS: Lung bases are unremarkable. The liver is cirrhotic. No lesions are identified within the liver although sensitivity is diminished on unenhanced exam. There is trace perihepatic ascites. Abdominal and pelvic varices are again noted. Splenomegaly is unchanged. Unenhanced images of the adrenal glands, kidneys and pancreas are unremarkable. There is no hydronephrosis. As before, the left kidney is displaced due to the enlarged spleen. There is no evidence for a bowel obstruction. The appendix is not visualized but there is no right lower quadrant inflammation. There is no abdominal or pelvic lymphadenopathy. No acute fractures are identified within the visualized skeletal structures. A low- attenuation left adnexal lesion is again noted. There are no urinary calculi. There is no biliary ductal dilatation status post cholecystectomy. IMPRESSION: 1. No bowel obstruction. No bowel wall thickening on unenhanced exam. 2. Cirrhotic liver. Manifestations of portal hypertension including splenomegaly, varices formation and trace perihepatic ascites. 3. No urinary calculi or hydronephrosis. ACT 112: Negative or not required by law. Electronically signed by: Junior Isaacs M.D. 11/12/2023 5:23 PM Chest X-Ray 11/12/23 16:33 XR chest 1V portable CLINICAL HISTORY: Sepsis. COMPARISON STUDY: Chest radiograph August 07, 2023. FINDINGS: Lung volumes are normal. Lungs are clear. There is no pneumothorax or pleural effusion. Mild cardiomegaly is unchanged. Mediastinal contours are normal. There is no evidence for pulmonary edema. IMPRESSION: No acute cardiopulmonary findings. No change in appearance of the chest. ACT 112: Negative or not required by law. Electronically signed by: Junior Isaacs M.D. 11/12/2023 6:30 PM Discharge Instructions Given to Patient (Per Discharging Provider) Ms. Lewis, You stated that your symptoms are no longer present and that you would like to go home. We suspect you had a viral gastroenteritis that caused your nausea and vomiting. You were able to tolerate food before discharge. Please keep close follow up with your primary care provider after discharge. Please do not hesitate to come back to the emergency room if your symptoms worsen or return. It was a pleasure taking care of you while you were here. Total Time Total Time Spent Total Time Spent (In Minutes): 65
[2023-11-13 14:43] VITALS: BP 115/67; PULSE 76; O2SAT 97
--- NOTE | 2023-11-14 07:34 | Communication Note ---
Date of Service: November 14, 2023 By CMS guidelines, a determination that the admission or continued stay is not medically necessary has been made by a member of the UR committee and a phy sician for this hospital stay, therefore a Code 44 will be completed and the Inpatient admission will be changed to outpatient.
== END 2023-11-13 17:58 | disposition home or self-care (01) | DRG 392 ==
LOC: ED 16:26 → INTOOBSV 17:56 → 3W 17:56 → SUATTDRO 17:56 → 3W 20:00

== ENCOUNTER 2023-12-03 11:47 | Inpatient (IN) ==
--- OUTSIDE RECORDS SUMMARY | 2023-12-03 11:53 | External Medical Summary | Summary of Care ---
Author Name Unknown Organization [facility] Address [address] [place] [address] Phone [phone] Care Team Providers Care Adult Parole Officer Name Role Phone Serene Lopez PA-C Primary Care Provide r Reason for Visit * Reason Comments eRx-Medication Refill Encounter Details Date Type Department Care Team (Late st Contact Info) Description 11/15/2023 Refill Family Practice [facility] [address] [facility] [place] [address] Annelise Kuhn MD [address] [place] [address] Hallucinations Allergies Active Allergy Reactions Criticality Noted Date Comments Clindamycin 05/31/2017 Hives/ ER visit Glimepiride 05/03/2022 Empagliflozin 10/31/2018 Genital rash Sulfa Antibiotics Anaphylaxis 01/13/2007 documented as of this encounter (statuses as of 11/16/2023) Medications Medication Sig Dispensed Refills Start Date End Date Status OneTouch Ultra In Vitro Strip (Glucose Blood)Indications:T ype 2 diabetes mellitus with hemoglobin A1c goal of less than 7.0% ([facility]),Type 2 diabetes mellitus with stage 2 chronic kidney disease, without long-term current use of insulin ([facility]) Use to test blood sugar [...] disease, without long-term current use of insulin ([facility]) inject 40 units under the [...] disease, without long-term current use of insulin ([facility]) TAKE TWO TABLETS BY MOUTH IN THE MORNING. 180 Tablet 1 4 Active Ketoconazole 2 % External Cream Apply topically to affected area daily. Apply to rash under breasts/groin 60 g 3 4 Active busPIRone HCl 7.5 MG Oral Tablet (Buspar) Take 1 Tablet by mouth 2 times a day. 60 Tablet 2 4 Active Cephalexin 500 MG Oral Capsule (Keflex) Take 1 Capsule by mouth in the morning and 1 Capsule before bedtime. Until gone.. 180 Capsule 1 4 03/19/20 24 Active Ondansetron 4 MG Oral Tablet Disintegrating [...] Tablets before bedtime. 30 Tablet 3 4 Active Naproxen 500 MG Oral Tablet (Naprosyn) Take 1 Tablet by mouth 2 times a day as needed for Pain. With food 40 Tablet 1 4 Active QUEtiapine Fumarate 25 MG Oral Tablet (SEROquel)Indicatio ns:Hallucinations TAKE ONE TABLET BY MOUTH AT BEDTIME 30 Tablet 4 Active QUEtiapine Fumarate 25 MG Oral Tablet (SEROquel)Indicatio ns:Hallucinations Take 1 Tablet by mouth at bedtime. 30 Tablet 1 4 11/16/19 24 Discontinued documented as of this encounter (statuses as of 11/16/2023) Active Problems Problem Noted Date Diagnosed Date [...] as of this encounter (statuses as of 11/16/2023) Resolved Problems Problem Noted Date Diagnosed Date [...] as of this encounter (statuses as of 11/16/2023) Immunizations Name Administration Dates Next Due COVID-19 mRNA, LNP-s, No Pre serve, 2-Dose Series (BitInstant) 07/03/2020 HEP A - Hepatitis A (Adult > 18 yrs) 10/13/2017, 03/08/2017 Hepatitis B, 20+ yrs 06/29/2017,01/26/2017,12/27 Pneumococcal Conjugate Vacci ne, 20-valent ([id number]) 08/24/2022 Pneumococcal Polysaccharide PPV23 (Pneumovax) 07/02/2011 Seasonal [...] Telephone Encounter - Bindu Rocha PA-C - 11/16/2023 3:31 PM EDTSigned Prescriptions: Disp Refills QUEtiapine Fumarate 25 MG Oral Tablet (SER*30 Tab*0 Sig: TAKE ONE TABLET BY MOUTH AT BEDTIME Authorizing Provider: BINDU ROCHA * Telephone Encounter - Kimberly Canales [facility] - 11/16/2023 3:10 PM EDTPending Prescriptions: Disp Refills QUEtiapine Fumarate 25 MG Oral Tablet [Pha*30 Tab*0 Sig: TAKE ONE TABLET BY MOUTH AT BEDTIME * Telephone Encounter - Kimberly Canales [facility] - 11/16/2023 3:10 PM EDT Telepharmacy is currently not authorized to approve refills for the pended medication(s) per refillprotocol. Please approve if appropriate. Pending Prescriptions: Disp Refills QUEtiapine Fumarate 25 MG Oral Tablet [Pha*30 Tab*0 Sig: TAKE ONE TABLET BY MOUTH AT BEDTIME 09/19/2023 (in office), Visit date not found (telemedicine) 12/30/2023 If no future appointments scheduled, and last appointment is greater than a year ago, please schedule patient for a follow-up appointment Last date the medication was ordered: 09/14/23 Pharmacy: [id number] [address] [facility] Is this request for a controlled [...] Care Team (Late st Contact Info) Description 11/18/2023 8:40 AM EDT Office Visit General Internal Medicine [facility] [address] [address] Steph Gomez PA-C [address] [address] 12/27/2023 9:40 AM EDT Office Visit Hepatology, [facility] [address] [facility] [place] [address] Sena Hancock MD [address] [place] [id number] 12/30/2023 11:20 AM EDT Office Visit Family Practice [facility] [address] [address] Annelise Kuhn MD [address] [address] Health Maintenance Due Date Last Done Comments [...] as of this encounter Visit Diagnoses Diagnosis Hallucinations documented in this encounter Advance Directives * Full Code (Latest Code Status on File) Date Activated Date Inactivated Comments 07/11/2017 10:33 AM 07/11/2017 3:56 PM This order re flects the patients wishes and were consensually agreed upon. Care Teams Adult Parole Officer Relationship Specialty Start Date End Date Serene Lopez PA-C [address] [address] PCP - General Physician Field Supervisor [employer] 07/18/23 documented as of this encounter
--- OUTSIDE RECORDS SUMMARY | 2023-12-03 11:53 | External Medical Summary | Summary of Care ---
Author Name Unknown Organization [facility] Address [address] [place] [address] Phone [phone] Care Team Providers Care Substation Operator Name Role Phone Serene Lopez PA-C Primary Care Provide r Reason for Visit * Reason Comments Hospital Follow-Up Patient discharged f [facility] on 11/12. Presented with nausea, vomiting, chest pain. Has not had any of these symptoms lately. Encounter Details Date Type Department Care Team (Late st Contact Info) Description 11/18/2023 8:40 AM EDT Office Visit General Internal Medicine [facility] [address] [facility] [place] [address] Steph Gomez PA-C 200 [place] [place] [address] Hospital discharge follow-up*; Abdominal pain, unspecified abdominal location; Nausea vomiting and diarrhea; Cellulitis of right leg; Cirrhosis of liver without ascites, unspecified hepatic cirrhosis type (HCC); Type 2 diabetes mellitus with hemoglobin A1c goal of less than 7.0% (HCC); Hypomagnesemia Allergies Active Allergy Reactions Criticality Noted Date Comments Clindamycin 05/31/2017 Hives/ ER visit Glimepiride 05/03/2022 Empagliflozin 10/31/2018 Genital rash Sulfa Antibiotics Anaphylaxis 01/13/2007 documented as of this encounter (statuses as of 11/18/2023) Medications Medication Sig Dispensed Refills Start Date End Date Status OneTouch Ultra In Vitro Strip (Glucose Blood)Indications:Ty pe 2 diabetes mellitus with hemoglobin A1c goal of less than 7.0% ([facility]),Type 2 diabetes mellitus with stage 2 chronic kidney disease, without long-term current use of insulin ([facility]) Use to test blood sugar once [...] disease, without long-term current use of insulin ([facility]) inject 40 units under the skin twice daily 75 mL 1 07/16/2023 Active Pravastatin Sodium 40 MG Oral Tablet (Pravachol)Indicatio ns:Type 2 diabetes mellitus with hemoglobin A1c goal of less than 7.0% ([facility]),Hyperlipidemia with target LDL less than 100 TAKE ONE TABLET BY MOUTH AT BEDTIME 90 Tablet 1 07/21/2023 Active metFORMIN HCl ER 500 MG Oral Tablet Extended Release 24 Hour (Glucophage XR)Indications:Type 2 diabetes mellitus with stage 2 chronic kidney disease, without long-term current use of insulin ([facility]) TAKE TWO TABLETS BY MOUTH IN THE MORNING. 180 Tablet 1 07/21/2023 Active Ketoconazole 2 % External Cream Apply topically to affected area daily. Apply to rash under breasts/groin 60 g 3 08/30/2023 Active busPIRone HCl 7.5 MG Oral Tablet (Buspar) Take 1 Tablet by mouth 2 times a day. 60 Tablet 2 09/19/2023 Active Cephalexin 500 MG Oral Capsule (Keflex) Take 1 Capsule by mouth in the morning and 1 Capsule before bedtime. Until gone.. 180 Capsule 1 09/21/2023 03/19/2024 Active Ondansetron 4 MG Oral Tablet Disintegrating (Zofran) Place 1 Tablet on tongue every 8 hours as needed for Nausea. dissolve on tongue. 12 Tablet 10/05/2023 Active BD Pen Needle Mini U/F 31G X 5 MM (Insulin Pen Needle)Indications:T ype 2 diabetes mellitus with hemoglobin A1c goal of less than 7.0% ([facility]),Type 2 diabetes mellitus with stage 2 chronic kidney disease, without long-term current use of insulin ([facility]) use with insulin twice daily 200 Each 1 10/11/2023 Active Furosemide 40 MG Oral Tablet (Lasix) Take 0.5 Tablets by mouth in the morning and 0.5 Tablets before bedtime. 30 Tablet 3 10/20/2023 Active Naproxen 500 MG Oral Tablet (Naprosyn) Take 1 Tablet by mouth 2 times a day as needed for Pain. With food 40 Tablet 1 11/15/2023 Active QUEtiapine Fumarate 25 MG Oral Tablet (SEROquel)Indication s:Hallucinations TAKE ONE TABLET BY MOUTH AT BEDTIME 30 Tablet 11/16/2023 Active documented as of this encounter (statuses as of 11/18/2023) Active Problems Problem Noted Date Diagnosed Date [...] as of this encounter (statuses as of 11/18/2023) Resolved Problems Problem Noted Date Diagnosed Date [...] as of this encounter (statuses as of 11/18/2023) Immunizations Name Administration Dates Next Due COVID-19 mRNA, LNP-s, No Pre serve, 2-Dose Series ([employer]) 07/03/2020 HEP A - Hepatitis A (Adult > 18 yrs) 10/13/2017, 03/08/2017 Hepatitis B, 20+ yrs 06/29/2017,01/26/2017,12/27 Pneumococcal Conjugate Vacci ne, 20-valent ([id number]) 08/24/2022 Pneumococcal Polysaccharide PPV23 (Pneumovax) 07/02/2011 Seasonal [...] No 07/25/2023 Does the household have a rustlar source of income? (Household - for ages [...] Sign Reading Time Taken Comments Blood Pressure 108/52 11/18/2023 8:43 AM EDT Pulse 76 11/18/2023 8:43 AM EDT Temperature 36.2 C (97.2 F) 11/18/2023 8:43 AM ED T Respiratory Rate - - Oxygen Saturation 98% 11/18/2023 8:43 AM EDT Inhaled Oxygen Concentration - - Weight 127.6 kg (281 lb 6.4 oz) 11/18/2023 8:43 AM EDT Height - - Body Mass Index 46.1 10/19/2023 9:04 AM EDT documented in this encounter Progress Notes * Steph Gomez PA-C - 11/18/2023 8:42 AM EDT SUBJECTIVE: Juli Lewis is a 63 year old female. Chief Complaint Patient presents with Hospital Follow-Up Patient discharged from [facility] on 11/12. Presented with nausea, vomiting, chest pain. Has not had any of these symptoms lately. Recent Admission: Patient was recently admitted to [facility]. The date of discharge was 11/13/23. Discharge report receivedand reviewed. HPI: Pt presented to ER on 11/11 after waking around 0400 with nausea/vomiting/diarrhea and abd pain. Had just finished extended course of abx for RLE cellulitis that morning. Pt reports having a fever of 103.1 prior to arrival to ER. CT abd/pelv completed--trace ascites noted, as well as abdominal and pelvic varices. No acute processes noted. Pt was unable to provide stool sample for c diff testing as diarrhea resolved. Pt received IVF and diet was advanced back to regular prior to discharge. Pt did receive one dose of Rocephin in the ER but no further abx were given. Pt feeling well today and has no concerns. Patient Active Problem List Diagnosis Lymphedema Sleep [...] (HCC) CKD (chronic kidney disease), stage II Current Outpatient Medications Medication Sig Dispense Refill OneTouch Ultra In Vitro Strip (Glucose Blood) Use to test blood sugar once a day 100 Strip 3 Triamcinolone Acetonide 0.1 % External Ointment (Aristocort) [...] the skin twice daily 75 mL 1 Pravastatin Sodium 40 MG Oral Tablet (Pravachol) TAKE ONE TABLET BY MOUTH AT BEDTIME 90 Tablet 1 metFORMIN HCl ER 500 MG Oral Tablet Extended Release 24 Hour (Glucophage XR) TAKE TWO TABLETS BY MOUTH IN THE MORNING. 180 Tablet 1 Ketoconazole 2 % External Cream Apply topically to affected area daily. Apply to rash under breasts/groin 60 g 3 busPIRone HCl 7.5 MG Oral Tablet (Buspar) Take 1 Tablet by mouth 2 times a day. 60 Tablet 2 Cephalexin 500 MG Oral Capsule (Keflex) Take 1 Capsule by mouth in the morning and 1 Capsule beforebedtime. Until gone.. 180 Capsule 1 Ondansetron 4 MG Oral Tablet Disintegrating (Zofran) Place 1 Tablet on tongue every 8 hours as needed for Nausea. dissolve on tongue. 12 Tablet 0 BD Pen Needle Mini U/F 31G X 5 MM (Insulin Pen Needle) use with insulin twice daily 200 Each 1 Furosemide 40 MG Oral Tablet (Lasix) Take 0.5 Tablets by mouth in the morning and 0.5 Tablets before bedtime. 30 Tablet 3 Naproxen 500 MG Oral Tablet (Naprosyn) Take 1 Tablet by mouth 2 times a day as needed for Pain. With food 40 Tablet 1 QUEtiapine Fumarate 25 MG Oral Tablet (SEROquel) TAKE ONE TABLET BY MOUTH AT BEDTIME 30 Tablet 0 No current facility-administered medications for this visit. Current and discharge medications have been reconciled. Review of patient's allergies indicates: Allergen Reactions Clindamycin Hives/ ER visit Glimepiride Jardiance [Empagliflozin] Genital rash Sulfa [Sulfa Antibiotics] Anaphylaxis OBJECTIVE: BP 108/52 | Pulse 76 | Temp 36.2 C (97.2 F) (Tympanic) | Wt 127.6 kg (281 lb 6.4 oz) | SpO2 98%| BMI 46.10 kg/m | BSA 2.43 m REVIEW OF SYSTEMS: Review of Systems Constitutional: Negative for chills and fever. Respiratory: Negative for shortness of breath. Cardiovascular: Negative for chest pain. Gastrointestinal: Negative for diarrhea, nausea and vomiting. Genitourinary: Negative. Neurological: Negative for dizziness and headaches. PHYSICAL EXAM: BP 108/52 | Pulse 76 | Temp 36.2 C (97.2 F) (Tympanic) | Wt 127.6 kg (281 lb 6.4 oz) | SpO2 98% | BMI 46.10 kg/m | BSA 2.43 m Physical Exam Constitutional: General: She is not in acute distress. Appearance: She is not diaphoretic. HENT: Mouth/Throat: Mouth: Mucous membranes are moist. Pharynx: Oropharynx is clear. Cardiovascular: Rate and Rhythm: Normal rate and regular rhythm. Pulmonary: Effort: Pulmonary effort is normal. Breath sounds: Normal breath sounds. Musculoskeletal: Cervical back: Normal range of motion and neck supple. Skin: General: Skin is warm and dry. Neurological: General: No focal deficit present. Mental Status: She is alert. Mental status is at baseline. ASSESSMENT: Hospital discharge follow-up (Primary) - DISCH MED RECON CUR MED LIS Abdominal pain, unspecified abdominal location - CBC WITH WBC DIFFERENTIAL; Future; Expected date: 11/18/2023 Nausea vomiting and diarrhea Cellulitis of right leg - CBC WITH WBC DIFFERENTIAL; Future; Expected date: 11/18/2023 Cirrhosis of liver without ascites, unspecified hepatic cirrhosis type (HCC) Type 2 diabetes mellitus with hemoglobin A1c goal of less than 7.0% (HCC) - COMPREHENSIVE METABOLIC PANEL; Future; Expected date: 11/18/2023 - LDL CHOLESTEROL (DIRECT MEASURE); Future; Expected date: 11/18/2023 Hypomagnesemia - MAGNESIUM; Future; Expected date: 11/18/2023 Follow Up: Return if symptoms worsen or fail to improve, for Fasting Labs 2-5 Days Before Next Visit. | For: Fasting Labs 2-5 Days Before Next Visit PLAN: Continue present medication(s): Schedule labs: Routine fasting labs before appt next month. Follow up next month as scheduled. I spent a total of 30-39 minutes (exact time 38 mins) minutes on the date of service in preparation, delivery, and documentation of the care provided to Juli Lewis excluding any time spent in performance of separately billed services. Steph Gomez PA-C documented in this encounter Nursing Notes * Abbi Gómez MED ASSIST - 11/18/2023 8:45 AM EDT Chief Complaint Patient presents with Hospital Follow-Up Patient discharged from [facility] on 11/12. Presented with nausea, vomiting, chest pain. Has not had any of these symptoms lately. documented in this encounter Plan of Treatment Upcoming Encounters Date Type Department Care Team (Late st Contact Info) Description 12/27/2023 9:40 AM EDT Office Visit Hepatology, [facility] [address] [facility] [place] [address] Sena Hancock MD [address] [place] [address] 12/30/2023 11:20 AM EDT Office Visit Family Practice [facility] [address] [facility] [place], [place] [address] Annelise Kuhn MD [address] [facility] [place] [address] Scheduled Orders Name Type Priority Associated Diagnoses Orde r Schedule COMPREHENSIVE METABOLIC PANEL Lab Routine Type 2 diabetes mellitus with hemoglobin A1c goal of less than 7.0% (HCC) Expected: 11/18/2023 (Approximate), Expires: 11/17/2024 LDL CHOLESTEROL (DIRECT MEASURE) Lab Routine Type 2 diabetes mellitus with hemoglobin A1c goal of less than 7.0% (HCC) Expected: 11/18/2023 (Approximate), Expires: 11/17/2024 CBC WITH WBC DIFFERENTIAL Lab Routine Abdominal pain, unspecified abdominal location Cellulitis of right leg Expected: 11/18/2023 (Approximate), Expires: 11/17/2024 MAGNESIUM Lab Routine Hypomagnesemia Expected: 11/18/2023 (Approximate), Expires: 11/17/2024 Health Maintenance Due Date Last Done Comments [...] as of this encounter Visit Diagnoses Diagnosis Hospital discharge follow-up- Primary Other follow-up examination Abdominal pain, unspecified abdominal location Nausea vomiting and diarrhea Diarrhea Cellulitis of right leg Cellulitis and abscess of leg, except foot Cirrhosis of liver without ascites, unspecified hepatic cirrhosis type (HCC) Type 2 diabetes mellitus with hemoglobin A1c goal of less than 7.0% (HCC) Hypomagnesemia Disorders of magnesium metabolism documented in this encounter Advance Directives * Full Code (Latest Code Status on File) Date Activated Date Inactivated Comments 07/11/2017 10:33 AM 07/11/2017 3:56 PM This order re flects the patients wishes and were consensually agreed upon. Care Teams Substation Operator Relationship Specialty Start Date End Date Serene Lopez PA-C [address] [place] [address] PCP - General Physician Supervisor [employer] 07/18/23 documented as of this encounter"
--- OUTSIDE RECORDS SUMMARY | 2023-12-03 11:53 | External Medical Summary | Summary of Care ---
Author Name Unknown Organization [facility] Address [address] [place] [address] Phone [phone] Care Team Providers Care Dental Office Manager Name Role Phone Serene Lopez PA-C Primary Care Provide r Reason for Visit * Reason Onset Date Comments Medication Refill 11/09/2023 Encounter Details Date Type Department Care Team (Late st Contact Info) Description 11/09/2023 Refill Family Practice [facility] [address] [facility] [place] [address] Se[facility]C [facility] [address] Allergies Active Allergy Reactions Criticality Noted Date Comments Clindamycin 05/31/2017 Hives/ ER visit Glimepiride 05/03/2022 Empagliflozin 10/31/2018 Genital rash Sulfa Antibiotics Anaphylaxis 01/13/2007 documented as of this encounter (statuses as of 11/15/2023) Medications Medication Sig Dispensed Refills Start Date End Date Status OneTouch Ultra In Vitro Strip (Glucose Blood)Indications:T ype 2 diabetes mellitus with hemoglobin A1c goal of less than 7.0% ([facility]),Type 2 diabetes mellitus with stage 2 chronic kidney disease, without long-term current use of insulin ([facility]) Use to test blood sugar [...] without long-term current use of insulin ([facility]) inject 40 units under the [...] without long-term current use of insulin ([facility]) TAKE TWO TABLETS BY MOUTH [...] Until gone.. 180 Capsule 1 09/21/2023 Active Ondansetron 4 MG Oral Tablet Disintegrating (Zofran) Place 1 Tablet on tongue every 8 hours as needed for Nausea. dissolve on tongue. 12 Tablet 10/05/2023 Active BD Pen Needle Mini U/F 31G X 5 MM (Insulin Pen Needle)Indications: Type 2 diabetes mellitus with hemoglobin A1c goal of less than 7.0% ([facility]),Type 2 diabetes mellitus with stage 2 chronic kidney disease, without long-term current use of insulin ([facility]) use with insulin twice daily 200 Each 1 10/11/2023 Active Furosemide 40 MG Oral Tablet (Lasix) Take 0.5 Tablets by mouth in the morning and 0.5 Tablets before bedtime. 30 Tablet 3 10/20/2023 Active Naproxen 500 MG Oral Tablet (Naprosyn) Take 1 Tablet by mouth 2 times a day as needed for Pain. With food 40 Tablet 1 11/15/2023 Active Naproxen 500 MG Oral Tablet (Naprosyn) Take 1 Tablet by mouth 2 times a day as needed for Pain. With food 40 Tablet 1 2023 4 Discontinue d(Refill) documented as of this encounter (statuses as of 11/15/2023) Active Problems Problem Noted Date Diagnosed Date [...] as of this encounter (statuses as of 11/15/2023) Resolved Problems Problem Noted Date Diagnosed Date [...] as of this encounter (statuses as of 11/15/2023) Immunizations Name Administration Dates Next Due COVID-19 mRNA, LNP-s, No Pre serve, 2-Dose Series ([email or web address]) 07/03/2020 HEP A - Hepatitis A (Adult > 18 yrs) 10/13/2017, 03/08/2017 Hepatitis B, 20+ yrs 06/29/2017,01/26/2017,12/27 Pneumococcal Conjugate Vacci ne, 20-valent ([id number]) 08/24/2022 Pneumococcal Polysaccharide PPV23 (Pneumovax) 07/02/2011 Seasonal [...] Telephone Encounter - Bindu Rocha PA-C - 11/15/2023 10:16 AM EDTSigned Prescriptions: Disp Refills Naproxen 500 MG Oral Tablet (Naprosyn) 40 Tab*1 Sig: Take 1 Tablet by mouth 2 times a day as needed for Pain. With foodAuthorizing Provider: BINDU ROCHA * Telephone Encounter - Bindu Rocha PA-C - 11/15/2023 10:16 AM EDTSigned Prescriptions: Disp Refills Naproxen 500 MG Oral Tablet (Naprosyn) 40 Tab*1 Sig: Take 1 Tablet by mouth 2 times a day as needed for Pain. With food Authorizing Provider: BINDU ROCHA * Telephone Encounter - Chelsy Cortes fire adjuster - 11/11/2023 12:11 PM EDT Patient is out of medication please expedite. Thanks, Chelsy Cortes Metal Milling Machine Operator III [facility] 11/11/2023,12:12 PM * Telephone Encounter - Ester Lackey [facility] - 11/10/2023 9:31 AM EDTPending Prescriptions: Disp Refills Naproxen 500 MG Oral Tablet (Naprosyn) 40 Tab*1 Sig: Take 1 Tablet by mouth 2 times a day as needed for Pain. With food * Telephone Encounter - Ester Lackey RPh - 11/10/2023 9:31 AM EDT Please approve if patient is to continue. Thanks, Ester Lackey Clinical Pharmacist [facility] [phone] 11/10/2023, 9:31 AM * Telephone Encounter - Alee Rizzo fire adjuster - 11/09/2023 7:57 AM EDT Did you pend patient's preferred pharmacy and medication before forwarding?yes Pharmacy: [id number] [address] [facility] Pending Prescriptions: Disp Refills Naproxen 500 MG [...] appointment Last date the medication was ordered: 2023 Is this request for a controlled substance?No Urine Drug Screen:No results found for this [...] AM EDT Office Visit General Internal Medicine [facility] [address] [facility] [place] [address] Steph Gomez PA-C [address] [facility] [place] [place] [address] 12/27/2023 9:40 AM EDT Office Visit Hepatology, [facility] [address] [facility] [place] [address] Sena Hancock MD [address] [place] [address] 12/30/2023 11:20 AM EDT Office Visit [facility] [address] [facility] [place] [address] Annelise Kuhn MD [address] [facility] [place] [address] Health Maintenance Due Date Last Done Comments [...] and were consensually agreed upon. Care Teams Dental Office Manager Relationship Specialty Start Date End Date Serene Lopez PA-C [address] [place] [address] PCP - General Physician Rn Cardiovascular 07/18/23 documented as of this encounter
--- OUTSIDE RECORDS SUMMARY | 2023-12-03 11:53 | External Medical Summary | Summary of Care ---
Author Name Unknown Organization [facility] Address [address] [place] [address] Phone [phone] Care Team Providers Care High School Hvac R Instructor Name Role Phone Serene Lopez PA-C Primary Care Provide r Encounter Details Date Type Department Care Team (Late st Contact Info) Description 11/22/2023 Orders Only PATIENT PORTAL DO NOT DELETE THIS DEPT USED BY [place] [id number] Allergies Active Allergy Reactions Criticality Noted Date Comments Clindamycin 05/31/2017 Hives/ ER visit Glimepiride 05/03/2022 Empagliflozin 10/31/2018 Genital rash Sulfa Antibiotics Anaphylaxis 01/13/2007 documented as of this encounter (statuses as of 11/22/2023) Medications Medication Sig Dispensed Refills Start Date End Date Status OneTouch Ultra In Vitro Strip (Glucose Blood)Indications:Ty pe 2 diabetes mellitus with hemoglobin A1c goal of less than 7.0% ([facility]),Type 2 diabetes mellitus with stage 2 chronic kidney disease, without long-term current use of insulin ([facility]) Use to test blood sugar once a [...] disease, without long-term current use of insulin ([facility]) inject 40 units under the skin twice daily 75 mL 1 07/16/2023 Active Pravastatin Sodium 40 MG Oral Tablet (Pravachol)Indicatio ns:Type 2 diabetes mellitus with hemoglobin A1c goal of less than 7.0% ([facility]),Hyperlipidemia with target LDL less than 100 TAKE ONE TABLET BY MOUTH AT BEDTIME 90 Tablet 1 07/21/2023 Active metFORMIN HCl ER 500 MG Oral Tablet Extended Release 24 Hour (Glucophage XR)Indications:Type 2 diabetes mellitus with stage 2 chronic kidney disease, without long-term current use of insulin ([facility]) TAKE TWO TABLETS BY MOUTH IN THE [...] hemoglobin A1c goal of less than 7.0% ([facility]),Type 2 diabetes mellitus with stage 2 chronic kidney disease, without long-term current use of insulin ([facility]) use with insulin twice daily 200 Each [...] as of this encounter (statuses as of 11/22/2023) Active Problems Problem Noted Date Diagnosed Date [...] as of this encounter (statuses as of 11/22/2023) Resolved Problems Problem Noted Date Diagnosed Date [...] as of this encounter (statuses as of 11/22/2023) Immunizations Name Administration Dates Next Due COVID-19 mRNA, LNP-s, No Pre serve, 2-Dose Series ([employer]) 07/03/2020 HEP A - Hepatitis A (Adult > 18 yrs) 10/13/2017, 03/08/2017 Hepatitis B, 20+ yrs 06/29/2017,01/26/2017,12/27 Pneumococcal Conjugate Vacci ne, 20-valent ([id number]) 08/24/2022 Pneumococcal Polysaccharide PPV23 (Pneumovax) 07/02/2011 Seasonal [...] No 07/25/2023 Does the household have a [facility] [place] source of income? (Household - for ages [...] 12/27/2023 9:40 AM EDT Office Visit Hepatology, [facility] [address] [facility] [place] [address] Sena Hancock MD [address] [place] [address] 12/30/2023 11:20 AM EDT Office Visit Family Practice [facility] [place] [address] [place] [address] Annelise Kuhn MD [address] [place] [address] Health Maintenance Due Date Last Done Comments [...] and were consensually agreed upon. Care Teams High School Hvac R Instructor Relationship Specialty Start Date End Date Serene Lopez PA-C [address] [place] [address] PCP - General Physician Reconciliation Coordinator 07/18/23 documented as of this encounter
--- NOTE | 2023-12-03 12:28 | XRay Report ---
XR chest 1V portable CLINICAL HISTORY: Sepsis. COMPARISON STUDY: Chest radiograph November 12, 2023. FINDINGS: Lung volumes are normal. Lungs are clear. There is no pneumothorax or pleural effusion. Car diac size is stable. Mediastinal contours are normal. There is no evidence for pulmonary edema. IMPRESSION: No acute cardiopulmonary findings. ACT 112: Negative or not required by law. Electronically signed by: Junior Isaacs M.D. 12/03/2023 12:27 PM
--- NOTE | 2023-12-03 12:37 | Emergency Department Note ---
Impression & Plan Cellulitis of leg, right, Thrombocytopenia ED Provider Note NAME: KOSTAS CHAND AGE: 63 SEX: F : 1960 ARRIVES VIA: Ambulance INFORMANT: Patient, ED PROVIDER(S): Horace Parker DO CHIEF COMPLAINT: Leg swelling HPI: The patient is a 63-year-old female who presented to the emergency department for an evaluation of leg swelling. The patient's had ongoing symptoms of leg swelling over the course of the summer. Her symptoms do wax and wane. She denies having any nausea or vomiting. She did complain of some shortness of breath as well as chest pain. She had been on an antibiotic as an outpatient recently. The patient has not been seen by her family doctor recently for the symptoms. She did have a follow-up appointment after the last time she was admitted for the symptoms. The patient denies having any trauma. ROS: See above HPI for pertinent positives & negatives. A total of 10 systems reviewed and were otherwise negative. PAST MEDICAL HISTORY: See Below PAST SURGICAL HISTORY: See Below FAMILY HISTORY: See Below SOCIAL HISTORY: See Below HOME MEDICATIONS: See Below ALLERGIES: See Below VITALS: See Below PHYSICAL EXAMINATION: GENERAL: Patient is awake alert in no acute distress patient is resting comfortably and showing no signs of anxiety EYES: The conjunctivae are clear. The pupils are round and reactive. EARS, NOSE, MOUTH AND THROAT: The nose is without any evidence of any deformity. Mucous membranes are moist. Tongue is midline. NECK: The neck is nontender and supple. RESPIRATORY: Normal respiratory effort is noted there is no evidence of wheezing rhonchi or rales CARDIOVASCULAR: Regular rate and rhythm noted there no murmurs rubs or gallops normal S1 normal S2. GASTROINTESTINAL: The abdomen is soft. Abdomen is nontender. MUSCULOSKELETAL/EXTREMITIES: There is no evidence of gross deformity full range of motion is noted in the hips and shoulders. SKIN: No edema was noted bilaterally with significant lymphedema and cellulitis of the right lower extremity. Skin is warm and dry. NEUROLOGIC: Patient is awake alert and oriented x3 MEDICAL DECISION MAKING: The patient is a 63-year-old female who presented to the emergency department for an evaluation of right leg swelling and pain. The patient has had similar symptoms in the past with cellulitis. I discussed the patient's laboratory and radiographic studies with her. She was treated with IV fluids and IV antibiotics in the emergency department. Given the degree of cellulitis of the right leg I discussed her condition with the on-call [facility] hospitalist. They have agreed to evaluate the patient in the emergency department. The patient's vital signs did reveal a low-grade fever. She had some intermittent episodes of hypotension but I do not feel this represents sepsis at this time. Triage Nursing notes reviewed. Prior medical records reviewed Vital Signs: reviewed and remarkable for hypotension Differential diagnosis: Cellulitis, abscess, MRSA infection, DVT, necrotizing fasciitis, dermatitis, drug eruption, allergic reaction, as well as other pathologies. ER treatment provided: See below Diagnostics interpreted by me: ECG: EKG was obtained in the emergency department. My interpretation is normal sinus rhythm at 86 bpm. Right bundle-branch block pattern was noted. There was no ectopy. This was compared to a tracing from November 12, 2023. No changes were noted. Cardiac Monitoring: An order was placed for continuous cardiac monitoring. The monitor shows a rate of 91 bpm with sinus rhythm. Laboratory studies: As stated above and show below. Imaging studies: See below. Radiographic imaging was reviewed by myself Consultation(s): I discussed this case with Dr. Pride [facility] Past Med/Surg History Problem List Cellulitis (Acute) Abdominal pain (Acute) Sepsis (Acute) Abdominal pain Lymphedema (Acute) Cirrhosis (Acute) Hypomagnesemia (Acute) Cellulitis of right leg (Acute) Sepsis (Acute) UTI (urinary tract infection) (Acute) Cellulitis of right lower extremity (Acute) Sepsis (Acute) Severe sepsis Viral gastroenteritis Cirrhosis (Chronic) Hyperlipidemia Lymphedema Morbid obesity Anxiety Side effect of medication Diarrhea (Acute) Acute hyperventilation (Acute) Chest pain (Acute) Obesity Diastolic dysfunction Cellulitis of right foot (Acute) Cellulitis of leg, right (Acute) Thrombocytopenia (Acute) HTN (hypertension) DM type 2 (diabetes mellitus, type 2) (Acute) History of hysteroscopy S/P cholecystectomy (Acute) Medical History SATHYA (acute kidney injury) Nausea, vomiting and diarrhea Sleep apnea Rosacea Peripheral neuropathy Spleen enlargement Chronic kidney disease STAGE 2 History of asthma Surgical History History of tooth extraction History of cataract surgery RT/LEFT H/O dilation and curettage Family History Sister Cervical cancer Mother Liver disease Other No family history of adverse response to anesthesia Social History Smoking Status: Never smoker Second Hand Exposure: No; Do You Dip or Chew Tobacco: No; Hx Alcohol Use: No Hx Substance Use: No Preferred Language: Mohawk Communication Ability: Effective Visual Impairment: No Limitations Hearing Ability: Normal Senior Bi Architect Required: No Beliefs That Will Affect Care: None Current Living Situation: Alone Current Living Situation Comment: lives in an apartment Feels Safe at Home: Yes Assistive Devices: Denture - Upper, Denture - Lower and Walker Allergies Allergies Allergy/AdvReac Type Severity Reaction Status Date / Time Sulfa (Sulfonamide Allergy Severe ANAPHYLAXIS--SWELLING, Verified 11/12/23 17:35 Antibiotics) HIVES clindamycin Allergy Intermediate HIVES-ER Verified 11/12/23 17:35 VISIT glimepiride Allergy Unknown ON Verified 11/12/23 17:35 [facility] empagliflozin AdvReac Intermediate Vaginal Verified 11/12/23 17:35 [From Anastacia] irritation Home Meds Home Medications Medication Instructions Recorded Confirmed pravastatin 40 mg tablet 40 mg PO HS 05/26/18 12/03/23 triamcinolone acetonide 0.1 % 1 applic topical DAILY PRN Rash 05/01/22 12/03/23 topical cream metformin 500 mg tablet,extended 1,000 mg PO DAILY 05/14/22 12/03/23 release 24 hr clobetasol 0.05 % topical ointment 1 applic topical BID PRN Rash 06/25/23 12/03/23 tacrolimus 0.1 % topical ointment 1 applic topical BID PRN NEEDED 06/25/23 12/03/23 furosemide 40 mg tablet 20 mg PO BID 11/12/23 12/03/23 ketoconazole 2 % topical cream 1 applic topical DIRECTED PRN 11/12/23 12/03/23 RASH UNDER BREASTS/GROIN naproxen 500 mg tablet 500 mg PO BID PRN Pain 11/12/23 12/03/23 quetiapine 25 mg tablet 25 mg PO HS 11/12/23 12/03/23 Previous Rx's Medication Instructions Recorded insulin glargine 100 unit/mL (3 40 unit (0.4 mL) subcut BID #15 mL 04/25/20 mL) subcutaneous pen (Basaglar KwikPen U-100 Insulin) buspirone 7.5 mg tablet 7.5 mg PO BID #60 tabs 06/30/23 ondansetron 4 mg disintegrating 4 mg PO Q8H PRN nausea and 11/13/23 tablet vomiting #30 tabs Results & Data (ED) Vital Signs Vital Signs - 24 hr 12/03/23 11:55 12/03/23 11:56 12/03/23 11:57 Temperature 37.7 C H Temperature Source Oral Pulse Rate 90 87 Pulse Rate [Apical] Pulse Rate from SpO2 Sensor 88 Pulse Rhythm Pulse Rhythm [Apical] Pulse Strength [Apical] Respiratory Rate 18 19 Respiratory Effort / Characteristics Non-Labored Respiratory Depth Normal Respiratory Pattern Regular Blood Pressure 129/55 L 129/55 L Blood Pressure [Right Arm] Blood Pressure Mean 83 79 Blood Pressure Mean [Right Arm] Blood Pressure Position Lying Blood Pressure Position [Right Arm] Pulse Oximetry 96 97 Oxygen Delivery Method Room Air Sepsis Recent Fever Within 48 Hours Yes Sepsis New/Unexplained Change in Mental Status N/A Sepsis Action Taken by Nursing No Action Required 12/03/23 12:01 12/03/23 12:12 12/03/23 12:24 Temperature Temperature Source Pulse Rate 84 87 Pulse Rate [Apical] Pulse Rate from SpO2 Sensor 85 86 Pulse Rhythm Pulse Rhythm [Apical] Pulse Strength [Apical] Respiratory Rate 15 14 Respiratory Effort / Characteristics Respiratory Depth Respiratory Pattern Blood Pressure 144/59 H Blood Pressure [Right Arm] Blood Pressure Mean 90 Blood Pressure Mean [Right Arm] Blood Pressure Position Blood Pressure Position [Right Arm] Pulse Oximetry 96 98 Oxygen Delivery Method Sepsis Recent Fever Within 48 Hours Sepsis New/Unexplained Change in Mental Status Sepsis Action Taken by Nursing 12/03/23 12:28 12/03/23 12:28 12/03/23 12:28 Temperature Temperature Source Pulse Rate 83 Pulse Rate [Apical] Pulse Rate from SpO2 Sensor Pulse Rhythm Pulse Rhythm [Apical] Pulse Strength [Apical] Respiratory Rate Respiratory Effort / Characteristics Non-Labored Respiratory Depth Normal Respiratory Pattern Regular Blood Pressure Blood Pressure [Right Arm] Blood Pressure Mean Blood Pressure Mean [Right Arm] Blood Pressure Position Blood Pressure Position [Right Arm] Pulse Oximetry 98 Oxygen Delivery Method Room Air Room Air Sepsis Recent Fever Within 48 Hours Sepsis New/Unexplained Change in Mental Status Sepsis Action Taken by Nursing 12/03/23 12:30 12/03/23 12:30 12/03/23 12:33 Temperature Temperature Source Pulse Rate 85 Pulse Rate [Apical] Pulse Rate from SpO2 Sensor 84 Pulse Rhythm Pulse Rhythm [Apical] Pulse Strength [Apical] Respiratory Rate 12 Respiratory Effort / Characteristics Respiratory Depth Respiratory Pattern Blood Pressure 117/52 L 117/52 L Blood Pressure [Right Arm] Blood Pressure Mean 81 81 Blood Pressure Mean [Right Arm] Blood Pressure Position Blood Pressure Position [Right Arm] Pulse Oximetry 96 Oxygen Delivery Method Sepsis Recent Fever Within 48 Hours Sepsis New/Unexplained Change in Mental Status Sepsis Action Taken by Nursing 12/03/23 12:57 12/03/23 13:00 12/03/23 13:09 Temperature Temperature Source Pulse Rate 92 H 88 Pulse Rate [Apical] Pulse Rate from SpO2 Sensor 92 H 89 Pulse Rhythm Pulse Rhythm [Apical] Pulse Strength [Apical] Respiratory Rate 23 18 Respiratory Effort / Characteristics Respiratory Depth Respiratory Pattern Blood Pressure 123/52 L Blood Pressure [Right Arm] Blood Pressure Mean 82 Blood Pressure Mean [Right Arm] Blood Pressure Position Blood Pressure Position [Right Arm] Pulse Oximetry 97 97 Oxygen Delivery Method Sepsis Recent Fever Within 48 Hours Sepsis New/Unexplained Change in Mental Status Sepsis Action Taken by Nursing 12/03/23 13:24 12/03/23 13:30 12/03/23 15:54 Temperature Temperature Source Pulse Rate 89 91 H Pulse Rate [Apical] Pulse Rate from SpO2 Sensor 89 Pulse Rhythm Regular Pulse Rhythm [Apical] Pulse Strength [Apical] Respiratory Rate 19 20 Respiratory Effort / Characteristics Respiratory Depth Respiratory Pattern Blood Pressure 126/67 Blood Pressure [Right Arm] Blood Pressure Mean 87 Blood Pressure Mean [Right Arm] Blood Pressure Position Blood Pressure Position [Right Arm] Pulse Oximetry 95 95 Oxygen Delivery Method Room Air Sepsis Recent Fever Within 48 Hours Sepsis New/Unexplained Change in Mental Status Sepsis Action Taken by Nursing 12/03/23 15:55 Temperature Temperature Source Pulse Rate Pulse Rate [Apical] 91 H Pulse Rate from SpO2 Sensor Pulse Rhythm Pulse Rhythm [Apical] Regular Pulse Strength [Apical] Normal Respiratory Rate 20 Respiratory Effort / Characteristics Non-Labored Spontaneous Respiratory Depth Normal Respiratory Pattern Regular Blood Pressure Blood Pressure [Right Arm] 112/54 L Blood Pressure Mean Blood Pressure Mean [Right Arm] 73 Blood Pressure Position Blood Pressure Position [Right Arm] Sitting Pulse Oximetry 95 Oxygen Delivery Method Room Air Sepsis Recent Fever Within 48 Hours Sepsis New/Unexplained Change in Mental Status Sepsis Action Taken by Long Term Medications Current Medication List: was personally reviewed by me Laboratory Data Attestation: I reviewed the patient's lab results. 12/03/23 12:10 12/03/23 12:10 Lab Results 12/03/23 12/03/23 Range/Units 12:10 14:15 WBC 10.13 (4.8-10.8) K/ul RBC 3.33 L (4.20-5.40) M/uL Hgb 10.4 L (12.0-16.0) g/dl Hct 30.3 L (37.0-47.0) % MCV 91.0 (80.0-100.0) fL MCH 31.2 (25.0-34.0) pg MCHC 34.3 (32.0-36.0) g/dL RDW Std Deviation 48.2 H (36.4-46.3) fL RDW Coeff of Melissa 14.5 (11.5-14.5) % Plt Count 59 L (130-400) K/uL MPV 8.8 L (9.4-12.4) fL Immature Gran % (Auto) 0.6 % Neut % (Auto) 94.0 % Lymph % (Auto) 2.4 % Jefferson % (Auto) 2.6 % Eos % (Auto) 0.2 % Baso % (Auto) 0.2 % Neut # (Auto) 9.53 H (1.40-6.50) K/uL Lymph # (Auto) 0.24 L (1.20-3.40) K/uL Jefferson # (Auto) 0.26 (0.11-0.59) K/uL Eos # (Auto) 0.02 (0.00-0.50) K/uL Baso # (Auto) 0.02 (0.00-0.20) K/uL Immature Gran # (Auto) 0.06 (0.01-0.20) K/uL PT 12.1 H (9.0-12.0) Seconds INR 1.1 (0.9-1.1) APTT 28 (21-31) Seconds PTT Ratio 1.0 Sodium 137 (136-145) mmol/L Potassium 4.4 (3.5-5.1) mmol/L Chloride 105 (98-107) mmol/L Carbon Dioxide 25 (21-32) mmol/L Anion Gap 7 (3-11) BUN 16 (6-23) mg/dl Creatinine 1.20 (0.6-1.2) mg/dl Est Cr Clr Drug Dosing 64.8 ml/min Est GFR ( Amer) 54.9 ml/min Est GFR (Non-Af Amer) 47.4 ml/min BUN/Creatinine Ratio 13.3 (10-20) Glucose 192 H (70-99(Fasting)) mg/dl Lactate 2.4 H* 1.6 (0.4-2.0) mmol/L Calcium 8.3 L (8.6-10.3) mg/dl Magnesium 1.4 L (1.7-2.4) mg/dl Total Bilirubin 2.0 H (0.2-1.0) mg/dl Direct Bilirubin 0.8 H (0-0.2) mg/dl AST 26 (13-39) U/L ALT 13 (7-52) U/L Alkaline Phosphatase 116 H (34-104) U/L Troponin I High Sens 5.7 (0-14) pg/ml Total Protein 6.9 (6.0-8.3) gm/dl Albumin 2.8 L (3.4-5.0) gm/dl Procalcitonin 0.12 (0-0.5) ng/ml Administered Medications Discontinued Medications Sodium Chloride (Nss) 1,000 mls @ 999 mls/hr IV .Q1H1M ONE Stop: 12/03/23 13:53 Last Infusion: 12/03/23 15:14 Dose: Infused Documented By: Admin: 12/03/23 12:57 Dose: 999 mls/hr Documented By: MIKE Ceftriaxone Sodium (Rocephin) 2,000 mg in 50 mls @ 100 mls/hr IV NOW STA Stop: 12/03/23 13:22 Last Infusion: 12/03/23 13:27 Dose: Infused Documented By: Admin: 12/03/23 12:57 Dose: 100 mls/hr Documented By: [facility] Magnesium Sulfate/Dextrose (Magnesium Sulfate / D5w) 1 gm in 100 mls @ 100 mls/hr IV NOW STA Stop: 12/03/23 14:04 Last Infusion: 12/03/23 14:24 Dose: Infused Documented By: Admin: 12/03/23 13:18 Dose: 100 mls/hr Documented By: MIKE Imaging Data Attestation: I personally reviewed and interpreted this imaging study as follows: My Impression: 1 view chest x-ray was obtained in the emergency department. My interpretation is no free air or definite infiltrate, final report below. Radiologist's Impression: Chest X-Ray 12/03/23 12:01 XR chest 1V portable CLINICAL HISTORY: Sepsis. COMPARISON STUDY: Chest radiograph November 12, 2023. FINDINGS: Lung volumes are normal. Lungs are clear. There is no pneumothorax or pleural effusion. Cardiac size is stable. Mediastinal contours are normal. There is no evidence for pulmonary edema. IMPRESSION: No acute cardiopulmonary findings. ACT 112: Negative or not required by law. Electronically signed by: Junior Isaacs M.D. 12/03/2023 12:27 PM Venous Doppler Study 12/03/23 12:01 RIGHT LOWER EXTREMITY VENOUS DOPPLER CLINICAL HISTORY: Right lower extremity swelling. COMPARISON STUDY: Right lower extremity venous Doppler ultrasound August 08, 2023. TECHNIQUE: Sonography of the deep venous system of the right lower extremity was performed. Compression and augmentation were evaluated. FINDINGS: This exam is compromised by suboptimal penetration. The right common femoral, superficial femoral and popliteal veins were compressible. Augmentation was normal. Flow was shown within the deep calf vessels. IMPRESSION: Exam compromised by suboptimal penetration but no evidence of deep venous thrombus within the right lower extremity. ACT 112: Negative or not required by law. Electronically signed by: Junior Isaacs M.D. 12/03/2023 3:35 PM Discharge Plan Visit Data Chief Complaint: Shortness of Breath/Dyspnea Stated Complaint: CHEST PAIN, SOB, NAUSEA, VOMITING, DIARRHEA ED Provider: Horace Parker Discharge Problem: Cellulitis of leg, right, Thrombocytopenia Patient Disposition: Being Evaluated by Hospitalist Forms Stand Alone Forms: [facility] Prescriptions Prescriptions: No Action pravastatin 40 mg tablet 40 mg PO HS insulin glargine [Basaglar KwikPen U-100 Insulin] 100 unit/mL (3 mL) insulin pen 40 unit subcut BID Qty: 15 0RF Rx Instructions: 40u AM 40u PM triamcinolone acetonide 0.1 % cream 1 applic TOPICAL DAILY PRN (Reason: Rash) Rx Instructions: on right wrist/forearm metformin 500 mg tablet extended release 24 hr 1,000 mg PO DAILY Patient Comments: QAM tacrolimus 0.1 % ointment 1 applic TOPICAL BID PRN (Reason: NEEDED) Rx Instructions: uses for back of legs and palms clobetasol 0.05 % ointment 1 applic TOPICAL BID PRN (Reason: Rash) Rx Instructions: rash on lower back and wrist buspirone 7.5 mg Tablet 7.5 mg PO BID Qty: 60 0RF quetiapine 25 mg tablet 25 mg PO HS furosemide 40 mg tablet 20 mg PO BID ketoconazole 2 % cream 1 applic TOPICAL DIRECTED PRN (Reason: RASH UNDER BREASTS/GROIN) naproxen 500 mg tablet 500 mg PO BID PRN (Reason: Pain) ondansetron 4 mg tablet,disintegrating 4 mg PO Q8H PRN (Reason: nausea and vomiting) Qty: 30 0RF Referrals Referrals: Annelise Kuhn MD [Primary Care Provider] -
[2023-12-03 12:47] LABS: Hematocrit (blood only) 30.3 % (37.0-47.0); Hemoglobin 10.4 g/dl (12.0-16.0); Mean Corpuscular Hemoglobin 31.2 pg (25.0-34.0); Mean Corpuscular Hgb Conc 34.3 g/dL (32.0-36.0); Mean Platelet Volume 8.8 fL (9.4-12.4); Platelet Count 59 K/uL (130-400); RDW Coefficient of Variation 14.5 % (11.5-14.5); RDW Standard Deviation 48.2 fL (36.4-46.3); Red Blood Count 3.33 M/uL (4.20-5.40); White Blood Count 10.13 K/ul (4.8-10.8)
[2023-12-03] MEDS: SODIUM CHLORIDE 0.9% 1,000 ML IV ONE (12:57)
[2023-12-03] MEDS: cefTRIAXone SODIUM 2,000 MG/50 ML BAG IV STA (12:57)
[2023-12-03 13:03] LABS: Albumin Level 2.8 gm/dl (3.4-5.0); BUN Creatinine Ratio 13.3 (10-20); Bilirubin Direct 0.8 mg/dl (0-0.2); Calcium 8.3 mg/dl (8.6-10.3); Creatinine Clr Calc Pharmacy 64.8 ml/min; Est GFR (African American) 54.9 ml/min; Est GFR (Non-African American) 47.4 ml/min; Magnesium 1.4 mg/dl (1.7-2.4); Potassium 4.4 mmol/L (3.5-5.1); Total Protein 6.9 gm/dl (6.0-8.3)
[2023-12-03 13:06] LABS: Basophils # (auto) 0.02 K/uL (0.00-0.20); Basophils % (auto) 0.2 %; Eosinophils # (auto) 0.02 K/uL (0.00-0.50); Eosinophils % (auto) 0.2 %; Immature Granulocytes # (auto) 0.06 K/uL (0.01-0.20); Immature Granulocytes % (auto) 0.6 %; Lymphocytes # (auto) 0.24 K/uL (1.20-3.40); Lymphocytes % (auto) 2.4 %; Monocytes # (auto) 0.26 K/uL (0.11-0.59); Monocytes % (auto) 2.6 %; Neutrophils # (auto) 9.53 K/uL (1.40-6.50)
[2023-12-03 13:09] LABS: Troponin I High Sensitivity 5.7 pg/ml (0-14)
[2023-12-03 13:17] LABS: INR 1.1 (0.9-1.1); Partial Thromboplastin Time 28 Seconds (21-31); Prothrombin Time 12.1 Seconds (9.0-12.0)
[2023-12-03] MEDS: MAGNESIUM SULFATE / D5W 1 GM/100 ML BAG IV STA (13:18)
--- NOTE | 2023-12-03 15:37 | Ultrasound Report ---
RIGHT LOWER EXTREMITY VENOUS DOPPLER CLINICAL HISTORY: Right lower extremity swelling. COMPARISON STUDY: Right lower extremity venous Doppler ultrasound August 08, 2023. TECHNIQUE: Sonography of the deep venous system of the right lower extremity was performed. Compress ion and augmentation were evaluated. FINDINGS: This exam is compromised by suboptimal penetration. The right common femoral, superficial femoral and popliteal veins were compressible. Augmentation was normal. Flow was shown within the sherman p calf vessels. IMPRESSION: Exam compromised by suboptimal penetration but no evidence of deep venous thrombus within the right lower extremity. ACT 112: Negative or not required by law. Electronically signed by: Junior Isaacs M.D. 12/03/2023 3:35 PM
--- NOTE | 2023-12-03 16:16 | History & Physical Report ---
Date of Service December 03, 2023 Assessment & Plan (1) Fever: Plan: 63 y/o female with insulin-requiring DM2, cirrhosis, chronic lymphedema, HTN, chronic thrombocytopenia, and other history as outlined who presented to the ED today with multiple symptoms including the acute onset of N/V/D last night, chest pain, and fevers that started around 1 am today. She recently completed a 28 day course of cephalexin per ID for the RLE cellulitis on 11/11. She has not followed up with her PCP since discharge from [facility] on 11/12 - reports she was scheduled for this upcoming Tuesday. Initial lactate in the ED was elevated at 2.4, repeat after 1L IVF was 1.6. Initial troponin negative. - Admit to PCU - Broad spectrum antibiotics with cefepime due to recurrent infection, multiple recent hospitalizations - Blood culture/urine culture - Consult infectious disease - Consult wound care - Tickborne disease serologies ordered - Labs in the AM - CBC, BMP, LFTs (2) Cellulitis of right leg: Plan: See plan for #1 - IV cefepime, consult ID, wound care (3) Nausea, vomiting and diarrhea: Plan: Similar symptoms during last admission. Suspect may be viral etiology but in view of multiple antibiotics over the last several months, need to r/o C. diff. - Check stool studies including C. diff - CT abd/pel - Consult GI due to recurrent symptoms (4) Hypomagnesemia: Plan: Replete IV Recheck in the AM (5) Cirrhosis: Plan: Chronic thrombocytopenia related to cirrhosis (6) Lymphedema: Plan: Chronic issue, see plan for #1 Plan Pt seen and reviewed with collaborating physician, Dr. Pride. Plan of care discussed and as outlined in his note and above. Code status: Full code DVT prophylaxis: TEDs for now in view of thrombocytopenia Admit to PCU Magnolia Chambers PA-C History of Present Illness Chief Complaint: "the same thing that always happens" Primary Care Provider: Annelise Kuhn MD 63 y/o female with insulin-requiring DM2, cirrhosis, chronic lymphedema, HTN, chronic thrombocytopenia, and other history as outlined who presented to the ED today with multiple symptoms including the acute onset of N/V/D last night, chest pains, and fevers. She reports being in her usual state of health when she went to bed last night. Around 1 am today, she woke up feeling poorly with a fever of 103.1. Then developed vomiting with at least ten episodes of yellow to green emesis - may have a burning sensation in chest after vomiting. Also describes at least six episodes of diarrhea today as well. No melena or hematochezia. Describes intermittent chest pains in substernal to left chest but may radiate to left arm - describes as sharp pain. Temp when EMS came was around 100F. Having a cough but no sore throat. She has not taken her oral meds today but has taken her insulin. She reports that she lives alone, ambulates with a cane and a walker. Recently admitted to [facility] with similar symptoms 11/11- 11/13/23 and was diagnosed with viral gastroenteritis, unable to give a stool for C. diff during that admission. Chest pain was attributed to the N/V as troponin x 2 were normal and EKG without signs of ischemia. No antibiotics were given during that admission other than initial dose of ceftriaxone in the ED as patient had just finished a 28 day course of Keflex on 11/11 as per infectious disease. Allergies Allergy/AdvReac Type Severity Reaction Status Date / Time Sulfa (Sulfonamide Allergy Severe ANAPHYLAXIS--SWELLING, Verified 11/12/23 17:35 Antibiotics) HIVES clindamycin Allergy Intermediate HIVES-ER Verified 11/12/23 17:35 VISIT glimepiride Allergy Unknown ON Verified 11/12/23 17:35 Telvent Git MED LIST empagliflozin AdvReac Intermediate Vaginal Verified 11/12/23 17:35 [From Jardiance] irritation Home Medications Medication Instructions Recorded Confirmed Type pravastatin 40 mg tablet 40 mg PO HS 05/26/18 12/03/23 History insulin glargine 100 unit/mL (3 40 unit (0.4 mL) subcut BID #15 mL 04/25/20 12/03/23 Rx mL) subcutaneous pen (Basaglar KwikPen U-100 Insulin) triamcinolone acetonide 0.1 % 1 applic topical DAILY PRN Rash 05/01/22 12/03/23 History topical cream metformin 500 mg tablet,extended 1,000 mg PO DAILY 05/14/22 12/03/23 History release 24 hr clobetasol 0.05 % topical ointment 1 applic topical BID PRN Rash 06/25/23 12/03/23 History tacrolimus 0.1 % topical ointment 1 applic topical BID PRN NEEDED 06/25/23 12/03/23 History buspirone 7.5 mg tablet 7.5 mg PO BID #60 tabs 06/30/23 12/03/23 Rx furosemide 40 mg tablet 20 mg PO BID 11/12/23 12/03/23 History ketoconazole 2 % topical cream 1 applic topical DIRECTED PRN 11/12/23 12/03/23 History RASH UNDER BREASTS/GROIN naproxen 500 mg tablet 500 mg PO BID PRN Pain 11/12/23 12/03/23 History quetiapine 25 mg tablet 25 mg PO HS 11/12/23 12/03/23 History ondansetron 4 mg disintegrating 4 mg PO Q8H PRN nausea and 11/13/23 12/03/23 Rx tablet vomiting #30 tabs Past Med/Surg History Problem List Fever Nausea, vomiting and diarrhea Cellulitis (Acute) Abdominal pain (Acute) Sepsis (Acute) Abdominal pain Lymphedema (Acute) Cirrhosis (Acute) Hypomagnesemia (Acute) Cellulitis of right leg (Acute) Sepsis (Acute) UTI (urinary tract infection) (Acute) Cellulitis of right lower extremity (Acute) Sepsis (Acute) Severe sepsis Viral gastroenteritis Cirrhosis (Chronic) Hyperlipidemia Lymphedema Morbid obesity Anxiety Side effect of medication Diarrhea (Acute) Acute hyperventilation (Acute) Chest pain (Acute) Obesity Diastolic dysfunction Cellulitis of right foot (Acute) Cellulitis of leg, right (Acute) Thrombocytopenia (Acute) HTN (hypertension) DM type 2 (diabetes mellitus, type 2) (Acute) History of hysteroscopy S/P cholecystectomy (Acute) Medical History SATHYA (acute kidney injury) Nausea, vomiting and diarrhea Sleep apnea Rosacea Peripheral neuropathy Spleen enlargement Chronic kidney disease STAGE 2 History of asthma Surgical History History of tooth extraction History of cataract surgery RT/LEFT H/O dilation and curettage Family History Sister Cervical cancer Mother Liver disease Other No family history of adverse response to anesthesia Social History Smoking Status: Never smoker Second Hand Exposure: No; Do You Dip or Chew Tobacco: No; Hx Alcohol Use: No Hx Substance Use: No Preferred Language: Swazi Communication Ability: Effective Visual Impairment: No Limitations Hearing Ability: Normal [employer] Inspector Required: No Beliefs That Will Affect Care: None Current Living Situation: Alone Current Living Situation Comment: lives in an apartment Feels Safe at Home: Yes Safety Concerns: Feels Safe At This Time Assistive Devices: Cane and Walker Review of Systems Review of Systems: All systems reviewed & are unremarkable except as noted in Subjective Physical Exam Physical Exam: Please see physician note for details of the physical exam Results & Data Results & Data Vital Signs (Past 12 Hours) Vital Signs Temp Pulse Pulse Resp BP BP Pulse Ox 12/03/23 15:55 91 H 20 112/54 L 95 12/03/23 15:54 91 H 20 95 12/03/23 13:30 126/67 12/03/23 13:24 89 19 95 12/03/23 13:09 88 18 97 12/03/23 13:00 123/52 L 12/03/23 12:57 92 H 23 97 12/03/23 12:33 85 12 96 12/03/23 12:30 117/52 L 12/03/23 12:30 117/52 L 12/03/23 12:28 83 12/03/23 12:28 98 12/03/23 12:28 12/03/23 12:24 87 14 98 12/03/23 12:12 84 15 96 12/03/23 12:01 144/59 H 12/03/23 11:57 87 19 97 12/03/23 11:56 37.7 C H 90 18 129/55 L 96 12/03/23 11:55 129/55 L O2 Del Method 12/03/23 15:55 Room Air 12/03/23 15:54 Room Air 12/03/23 13:30 12/03/23 13:24 12/03/23 13:09 12/03/23 13:00 12/03/23 12:57 12/03/23 12:33 12/03/23 12:30 12/03/23 12:30 12/03/23 12:28 12/03/23 12:28 Room Air 12/03/23 12:28 Room Air 12/03/23 12:24 12/03/23 12:12 12/03/23 12:01 12/03/23 11:57 12/03/23 11:56 Room Air 12/03/23 11:55 Laboratory Results Lab Results 12/03/23 12/03/23 Range/Units 12:10 14:15 WBC 10.13 (4.8-10.8) K/ul RBC 3.33 L (4.20-5.40) M/uL Hgb 10.4 L (12.0-16.0) g/dl Hct 30.3 L (37.0-47.0) % MCV 91.0 (80.0-100.0) fL MCH 31.2 (25.0-34.0) pg MCHC 34.3 (32.0-36.0) g/dL RDW Std Deviation 48.2 H (36.4-46.3) fL RDW Coeff of Melissa 14.5 (11.5-14.5) % Plt Count 59 L (130-400) K/uL MPV 8.8 L (9.4-12.4) fL Immature Gran % (Auto) 0.6 % Neut % (Auto) 94.0 % Lymph % (Auto) 2.4 % [place] % (Auto) 2.6 % Eos % (Auto) 0.2 % Baso % (Auto) 0.2 % Neut # (Auto) 9.53 H (1.40-6.50) K/uL Lymph # (Auto) 0.24 L (1.20-3.40) K/uL [place] # (Auto) 0.26 (0.11-0.59) K/uL Eos # (Auto) 0.02 (0.00-0.50) K/uL Baso # (Auto) 0.02 (0.00-0.20) K/uL Immature Gran # (Auto) 0.06 (0.01-0.20) K/uL PT 12.1 H (9.0-12.0) Seconds INR 1.1 (0.9-1.1) APTT 28 (21-31) Seconds PTT Ratio 1.0 Sodium 137 (136-145) mmol/L Potassium 4.4 (3.5-5.1) mmol/L Chloride 105 (98-107) mmol/L Carbon Dioxide 25 (21-32) mmol/L Anion Gap 7 (3-11) BUN 16 (6-23) mg/dl Creatinine 1.20 (0.6-1.2) mg/dl Est Cr Clr Drug Dosing 64.8 ml/min Est GFR ( Amer) 54.9 ml/min Est GFR (Non-Af Amer) 47.4 ml/min BUN/Creatinine Ratio 13.3 (10-20) Glucose 192 H (70-99(Fasting)) mg/dl Lactate 2.4 H* 1.6 (0.4-2.0) mmol/L Calcium 8.3 L (8.6-10.3) mg/dl Magnesium 1.4 L (1.7-2.4) mg/dl Total Bilirubin 2.0 H (0.2-1.0) mg/dl Direct Bilirubin 0.8 H (0-0.2) mg/dl AST 26 (13-39) U/L ALT 13 (7-52) U/L Alkaline Phosphatase 116 H (34-104) U/L Troponin I High Sens 5.7 (0-14) pg/ml Total Protein 6.9 (6.0-8.3) gm/dl Albumin 2.8 L (3.4-5.0) gm/dl Procalcitonin 0.12 (0-0.5) ng/ml Diagnostic Findings Chest X-Ray 12/03/23 12:01 XR chest 1V portable CLINICAL HISTORY: Sepsis. COMPARISON STUDY: Chest radiograph November 12, 2023. FINDINGS: Lung volumes are normal. Lungs are clear. There is no pneumothorax or pleural effusion. Cardiac size is stable. Mediastinal contours are normal. There is no evidence for pulmonary edema. IMPRESSION: No acute cardiopulmonary findings. ACT 112: Negative or not required by law. Electronically signed by: Junior Isaacs M.D. 12/03/2023 12:27 PM Venous Doppler Study 12/03/23 12:01 RIGHT LOWER EXTREMITY VENOUS DOPPLER CLINICAL HISTORY: Right lower extremity swelling. COMPARISON STUDY: Right lower extremity venous Doppler ultrasound August 08, 2023. TECHNIQUE: Sonography of the deep venous system of the right lower extremity was performed. Compression and augmentation were evaluated. FINDINGS: This exam is compromised by suboptimal penetration. The right common femoral, superficial femoral and popliteal veins were compressible. Augmentation was normal. Flow was shown within the deep calf vessels. IMPRESSION: Exam compromised by suboptimal penetration but no evidence of deep venous thrombus within the right lower extremity. ACT 112: Negative or not required by law. Electronically signed by: Junior Isaacs M.D. 12/03/2023 3:35 PM Medications Administered Discontinued Medications Sodium Chloride (Nss) 1,000 mls @ 999 mls/hr IV .Q1H1M ONE Stop: 12/03/23 13:53 Last Infusion: 12/03/23 15:14 Dose: Infused Documented By: Admin: 12/03/23 12:57 Dose: 999 mls/hr Documented By: MIKE Ceftriaxone Sodium (Rocephin) 2,000 mg in 50 mls @ 100 mls/hr IV NOW STA Stop: 12/03/23 13:22 Last Infusion: 12/03/23 13:27 Dose: Infused Documented By: Admin: 12/03/23 12:57 Dose: 100 mls/hr Documented By: MIKE Magnesium Sulfate/Dextrose (Magnesium Sulfate / D5w) 1 gm in 100 mls @ 100 mls/hr IV NOW STA Stop: 12/03/23 14:04 Last Infusion: 12/03/23 14:24 Dose: Infused Documented By: Admin: 12/03/23 13:18 Dose: 100 mls/hr Documented By: MIKE Supervising Physician Co-Signing Physician Notes 63-year-old lady with PMH of nonalcoholic cirrhosis of liver, chronic thrombocytopenia due to liver disease, CKD stage IV, diarrhea, T2DM, HTN presented with nausea, vomiting, current diarrhea associated with fever. Patient reports that she was in her usual state of health until last evening. She woke up around 1 AM in the morning with nausea, vomiting, diarrhea. She reports having about 10 vomiting today and about 6 loose stools today. She denies any blood in the vomitus or stool. She reports diffuse abdominal pain, reports a fever of 103.1 Fahrenheit at home followed by 102.6 for night and then by the time ambulance arrived it was 100 F per patient. Temperature in the ED at 37.7 C. Patient denies cough or sore throat. Patient reports increasing RLE swelling/tenderness/erythema. Labs reviewed, no leukocytosis noted, other labs fairly WNL. Lactate elevated at 2.4, normalized to 1.6 with 1 L IV fluid in the ED. CXR with no acute finding. RLE venous Doppler negative for DVT. Active problems: Likely RLE cellulitis: Erythema/increased swelling/tenderness on RLE exam. In the setting of chronic lymphedema. Continue with cefepime, add probiotic. W ound care consult. Patient to follow-up with podiatry on discharge. ID consult. Blood culture. Fever: Reported high temp at home. Rule out other sources of fever. Send UA /urine culture, send blood culture, sent tickborne serology, Send RPP. Patient denies cough. Send CTAP for nausea/vomiting/diarrhea/abdominal pain. Tylenol prn. Recurrent nausea and vomiting And diarrhea: Requiring hospital admission, will get CTAP, IV fluid nss at 70 ml/hr x 2 bags, n.p.o. except meds and sips, advance diet as tolerated as nausea and vomiting clears. zofran 4mg iv q8h prn, GI consult given recurrent symptoms of nausea, vomiting, diarrhea. Get C diff and stool pcr. LFT in AM. Hypomagnesemia: Likely secondary to increased loose stool, replace magnesium total of 3 g IV today. Chest pain: Rule out ACS, troponin x 1 WNL, trend troponin, EKG with no acute ST-T changes. Patient reports no chest pain after coming to the hospital. Continue with telemetry monitoring. Increased blood lactic acid level: Elevated at 2.4, normalized, status post IV fluid, continue IV fluid. On Exam: GENERAL: Alert and oriented x3. NAD, on RA. appears tired, warm to touch. HEENT: No pallor, no icterus. Pupils equal, round and reactive to light. Oral mucosa dry. NECK: No JVD, no neck masses. HEART: S1 and S2 heard. Regular rate and rhythm. tachycardia in 90s. + murmur, no gallop. RESPIRATORY SYSTEM: Normal AP diameter. No accessory muscle use. No wheezing, no crackles. ABDOMEN: Soft, bowel sounds present, diffuse tender, no distention. CENTRAL NERVOUS SYSTEM: No facial droop. Speech is clear. Obeys simple commands. Moves extremities. EXTREMITIES: RLE x severe lymphedema - erythema,warmth and tenderness noted. LLE mild lymphedema noted, no erythema noted. I have seen and examined the patient and have discussed the case with the sara dalton above. I agree with the assessment and plan as stated. (1) Fever Fever type: unspecified Qualified Code(s): R50.9 - Fever, unspecified (5) Cirrhosis Ascites presence: unspecified Hepatic cirrhosis type: unspecified hepatic cirrhosis Qualified Code(s): K74.60 - Unspecified cirrhosis of liver
[2023-12-03] MEDS ORDERED: ONDANSETRON INJ 2 MG/ML 2 ML VIAL IV PRN (16:56)
[2023-12-03] MEDS: OPTIRAY 320 100ml IV ONE (17:24)
[2023-12-03] MEDS: MAGNESIUM SULFATE / D5W 1 GM/100 ML BAG IV SCH (17:42)
[2023-12-03] MEDS: CEFEPIME 20 ML IV STA (17:43)
[2023-12-03] MEDS: SODIUM CHLORIDE 0.9% 1,000 ML IV SCH (17:45)
[2023-12-03] MEDS ORDERED: CARBOHYDRATES FOR HYPOGLYCEMIA PO PRN (18:15)
[2023-12-03] MEDS ORDERED: GLUCAGON FOR INJ 1 MG VIAL SQ PRN (18:15)
[2023-12-03] MEDS ORDERED: GLUCOSE 40% GEL 15 GM TUBE PO PRN (18:15)
[2023-12-03] MEDS ORDERED: DEXTROSE 50% 50 ML SYRINGE IV PRN (18:15)
[2023-12-03] MEDS ORDERED: GLUCOSE 10 TAB/TUBE PO PRN (18:15)
[2023-12-03] MEDS ORDERED: ACETAMINOPHEN 325 MG TAB PO PRN (18:15)
--- NOTE | 2023-12-03 18:27 | CT Scan Report ---
CT OF THE ABDOMEN AND PELVIS WITH CONTRAST CLINICAL HISTORY: Fever, recurrent vomiting, diarrhea. COMPARISON STUDY: CT of the abdomen and pelvis November 12, 2023. TECHNIQUE: Following IV administration of 95 mL of Optiray, axial images of the abdomen and pelvis we re obtained from the lung bases to the proximal femurs. Images were reviewed in the axial, sagittal, and coronal planes. IV contrast was administered without complication. Automated exposure control wa s utilized for the study. A dose lowering technique was utilized adhering to the principles of ALARA . CT DOSE: 1408.89 mGy.cm FINDINGS: No pneumatosis, free air or portal venous gas is present. There is no biliary ductal dilata tion status post cholecystectomy. The liver is cirrhotic. No hepatic lesions are identified. A small amount of abdominal ascites is present. Splenomegaly and varices formation is again noted. The main, left and right portal veins are patent. Mild wall thickening of the distal esophagus. The adrenal gla nds, kidneys and pancreas are unremarkable. There is no hydronephrosis. Caliber and wall thickness of small and large bowel are normal. The appendix is normal. No fluid collections are present. 0.9 cm c ystic left adnexal lesion is present. No acute fractures are identified within the visualized skeleta l structures. IMPRESSION: 1. No bowel obstruction. No bowel wall thickening. 2. Wall thickening of the distal esophagus. This may reflect esophagitis. 3. Cirrhosis with manifestations of portal hypertension including splenomegaly, varices formation and a small amount of ascites. ACT 112: Negative or not required by law. Electronically signed by: Junior Isaacs M.D. 12/03/2023 6:25 PM
[2023-12-03 20:08] LABS: Appearance Urine Clear (Clear); Bacteria Urine Automated None Seen (None Seen); Bilirubin Urine Negative (Negative); Blood Urine 1+ (Negative); Cast Urine Automated 0-2 /lpf (0-2); Color Urine Dark Yellow; Glucose Urine UA Negative (Negative); Ketones Urine Trace (Negative); Leukocyte Esterase Urine Trace (Negative); Nitrite Urine Negative (Negative); Protein Urine Negative (Negative); Specific Gravity Urine 1.032 (1.000-1.030); Urobilinogen Urine Negative (Negative); WBC Urine Automated 0-5 /hpf (0-5); pH Urine 5.5 (4.5-7.5)
[2023-12-03] MEDS: busPIRone 7.5 MG TAB PO SCH (20:15)
[2023-12-03] MEDS: QUEtiapine FUMARATE 25 MG TABLET PO SCH (20:15)
[2023-12-03] MEDS: PRAVASTATIN SOD 40 MG TAB PO SCH (20:15)
[2023-12-03] MEDS ORDERED: Nursing to Pharmacy Communication SCH (20:45)
[2023-12-03] MEDS ORDERED: INSULIN ASPART PER UNIT CHARGE SC SCH (21:00)
[2023-12-03] MEDS: LANTUS PER UNIT CHARGE SQ SCH (21:24)
[2023-12-04] MEDS: CEFEPIME 2,000 MG in SYRINGE 0 ML IV SCH (00:35)
[2023-12-04] MEDS: INSULIN ASPART PER UNIT CHARGE SC SCH ×2 (00:35→12:02)
[2023-12-04 03:58] LABS: Basophils # (auto) 0.02 K/uL (0.00-0.20); Basophils % (auto) 0.3 %; Eosinophils # (auto) 0.02 K/uL (0.00-0.50); Eosinophils % (auto) 0.3 %; Hematocrit (blood only) 29.3 % (37.0-47.0); Hemoglobin 9.3 g/dl (12.0-16.0); Immature Granulocytes # (auto) 0.03 K/uL (0.01-0.20); Immature Granulocytes % (auto) 0.4 %; Lymphocytes # (auto) 0.58 K/uL (1.20-3.40); Lymphocytes % (auto) 8.2 %; Mean Corpuscular Hemoglobin 30.2 pg (25.0-34.0); Mean Corpuscular Hgb Conc 31.7 g/dL (32.0-36.0); Mean Corpuscular Volume 95.1 fL (80.0-100.0); Mean Platelet Volume 9.3 fL (9.4-12.4); Monocytes # (auto) 0.32 K/uL (0.11-0.59); Monocytes % (auto) 4.5 %; Neutrophils # (auto) 6.11 K/uL (1.40-6.50); Neutrophils % (auto) 86.3 %; Platelet Count 47 K/uL (130-400); RDW Coefficient of Variation 14.9 % (11.5-14.5); RDW Standard Deviation 52.1 fL (36.4-46.3); Red Blood Count 3.08 M/uL (4.20-5.40); White Blood Count 7.08 K/ul (4.8-10.8)
[2023-12-04 04:01] LABS: Albumin Level 2.5 gm/dl (3.4-5.0); Bilirubin Direct 0.6 mg/dl (0-0.2); Bilirubin,Total 1.4 mg/dl (0.2-1.0); Calcium 8.1 mg/dl (8.6-10.3); Est GFR (African American) 59.7 ml/min; Est GFR (Non-African American) 51.5 ml/min; Magnesium 1.9 mg/dl (1.7-2.4); Potassium 4.2 mmol/L (3.5-5.1); Total Protein 6.2 gm/dl (6.0-8.3)
--- NOTE | 2023-12-04 07:33 | Electrocardiogram Report ---
Test Reason : Blood Pressure : */* mmHG Vent. Rate : 86 BPM Atrial Rate : 86 BPM P-R Int : 182 ms QRS Dur : 126 ms QT Int : 402 ms P-R-T Axes : 49 77 28 degrees QTcB Int : 481 ms Normal sinus rhythm Right bundle branch block Abnormal ECG When compared with ECG of 12-Nov-2023 16:50, No significant change was found Confirmed by Rashaun Nascimento ([id number]) on 12/04/2023 7:32:39 AM Referred By: REFERRED SELF Confirmed By: Rashaun Nascimento
--- NOTE | 2023-12-04 08:20 | Gastrointestinal Consultation ---
Date of Consultation December 04, 2023 Assessment & Plan (1) Nausea, vomiting and diarrhea: Symptoms resolved. Supports a foodborne gastroenteritis possibly toxin related. Agree with excluding C. difficile if patient could give a stool sample. Symptoms could be related to recent antibiotic use as well as her underlying cellulitis. If symptoms return we will consider further investigation. Continue supportive and symptomatic care. (2) Abnormal liver enzymes: Consistent with known underlying liver disease. History of Present Illness Reason for Consultation: Nausea vomiting and diarrhea Attending Physician: Grace Stephens MD History of Present Illness 63 y/o female with insulin-requiring DM2, MAFLD cirrhosis, chronic lymphedema, HTN, chronic thrombocytopenia. Longstanding history of chronic and acute cellulitis of her right lower extremity. Recently treated with antibiotics earlier this month. Was doing well until 1 AM this morning when she awoke with her multiple episodes of nausea vomiting and diarrhea. She denies any hematemesis melena or bright red blood per rectum. She reports fever as well. She denies any significant abdominal pain prior significant GI illnesses. No recent sick contacts no travel. Presently her symptoms have resolved she has not had a bowel movement since she was hospitalized. Allergies Allergy/AdvReac Type Severity Reaction Status Date / Time Sulfa (Sulfonamide Allergy Severe ANAPHYLAXIS--SWELLING, Verified 11/12/23 17:35 Antibiotics) HIVES clindamycin Allergy Intermediate HIVES-ER Verified 11/12/23 17:35 VISIT glimepiride Allergy Unknown ON Verified 11/12/23 17:35 [employer] MED LIST empagliflozin AdvReac Intermediate Vaginal Verified 11/12/23 17:35 [From Jardiance] irritation Home Medications Medication Instructions Recorded Confirmed Type pravastatin 40 mg tablet 40 mg PO HS 05/26/18 12/03/23 History insulin glargine 100 unit/mL (3 40 unit (0.4 mL) subcut BID #15 mL 04/25/20 12/03/23 Rx mL) subcutaneous pen (Basaglar KwikPen U-100 Insulin) triamcinolone acetonide 0.1 % 1 applic topical DAILY PRN Rash 05/01/22 12/03/23 History topical cream metformin 500 mg tablet,extended 1,000 mg PO DAILY 05/14/22 12/03/23 History release 24 hr clobetasol 0.05 % topical ointment 1 applic topical BID PRN Rash 06/25/23 12/03/23 History tacrolimus 0.1 % topical ointment 1 applic topical BID PRN NEEDED 06/25/23 12/03/23 History buspirone 7.5 mg tablet 7.5 mg PO BID #60 tabs 06/30/23 12/03/23 Rx furosemide 40 mg tablet 20 mg PO BID 11/12/23 12/03/23 History ketoconazole 2 % topical cream 1 applic topical DIRECTED PRN 11/12/23 12/03/23 History RASH UNDER BREASTS/GROIN naproxen 500 mg tablet 500 mg PO BID PRN Pain 11/12/23 12/03/23 History quetiapine 25 mg tablet 25 mg PO HS 11/12/23 12/03/23 History ondansetron 4 mg disintegrating 4 mg PO Q8H PRN nausea and 11/13/23 12/03/23 Rx tablet vomiting #30 tabs Patient History Medical History SATHYA (acute kidney injury) Nausea, vomiting and diarrhea Sleep apnea Rosacea Peripheral neuropathy Spleen enlargement Chronic kidney disease STAGE 2 History of asthma Surgical History History of tooth extraction History of cataract surgery RT/LEFT H/O dilation and curettage Family History Sister Cervical cancer Mother Liver disease Other No family history of adverse response to anesthesia Social History Smoking Status: Never smoker Second Hand Exposure: No; Do You Dip or Chew Tobacco: No; Hx Alcohol Use: No Hx Substance Use: No Preferred Language: [place] Communication Ability: Effective Visual Impairment: No Limitations Hearing Ability: Normal [employer] Rep Required: No Beliefs That Will Affect Care: None Current Living Situation: Alone Current Living Situation Comment: lives in an apartment Feels Safe at Home: Yes Safety Concerns: Feels Safe At This Time Assistive Devices: Cane and Walker Review of Systems Review of Systems: No fever No chills No SOB No CP No Abd pain Physical Exam Physical Exam: Eyes; anicteric HENT No masses Chest clear to A Cor S1, S2 physiologic Abd: softer nontender no masses Ext no edema Results & Data Vital Signs (Past 12 Hours) Vital Signs Temp Pulse Pulse Resp BP Pulse Ox O2 Del Method 12/04/23 08:00 Room Air 12/04/23 07:42 36.9 C 73 18 123/69 97 Room Air 12/04/23 03:21 37.4 C 75 18 116/61 91 Room Air 12/03/23 23:32 36.8 C 83 18 121/67 96 Room Air 12/03/23 21:54 88 PG Care Time/CCT Total # of Minutes Spent Total Time Spent with Patient: Total time spent is greater than 50% in coordination of care (as documented) at patient's floor/unit and/or counseling patient: Coding Level of Care Code 39316 IN/OBS CONSULT LVL 4,60M Diagnoses Nausea, vomiting and diarrhea R11.2; R19.7 Abnormal liver enzymes R74.8
--- NOTE | 2023-12-04 13:19 | Hospitalist Progress Note ---
Date of Service December 04, 2023 Assessment & Plan (1) Fever: (2) Cellulitis of right leg: (3) Nausea, vomiting and diarrhea: (4) Hypomagnesemia: (5) Cirrhosis: (6) Lymphedema: Plan Ms. Lewis is a 63 y/o female with insulin-requiring DM2, cirrhosis, chronic lymphedema, HTN, chronic thrombocytopenia, and other history as outlined who presented to ED on 12/02 with multiple symptoms including the acute onset of N/V/D last night, chest pain, and fevers that are consistent with onset of cellutlitis. She recently completed a 28 day course of cephalexin per ID for the RLE cellulitis on 11/11. She has not followed up with her PCP since discharge from [facility] on 11/12 - reports she was scheduled for this upcoming Tuesday. Initial lactate in the ED was elevated at 2.4, repeat after 1L IVF was 1.6. Initial troponin negative. #Fever #Cellulitis of RLE #Chronic Lymphedema Followed ID, completed prolonged course of PO ceflex 11/11 BCx NGTD UA negative tick serologies negative MRSA negative on 11/12, however, recent admission since therefore repeat MRSA screen Continue cefepime given subjective improvement Infectious disease consulted for further recommendations given recent prolonged course and recurrence wound care Start Amlactin for lymphedema Trend labs in am #Nausea, vomiting and diarrhea: CT with esophagitis and cirrhosis c.w history Similar symptoms during last admission. Suspect may be viral etiology but in view of multiple antibiotics over the last several months, need to r/o C. diff. - Check stool studies including C. diff - CT abd/pel negative for signs of infection - Consult GI due to recurrent symptoms: supportive care Start PPI daily given esophagitis #hypomagnesemia: stable, recheck in am #Compensated Cirrhosis: #Chronic thrombocytopenia related to cirrhosis chronic, stable Resume home lasix 20mg bid Full code DVT prophylaxis: TEDs for now in view of thrombocytopenia downgrade to SDO Admission and Anticipated Discharge Date Admission Date: December 03, 2023 Subjective NAEO Reports feeling much better since admission Denies further diarrhea or nausea Physical Exam Constitutional: WD/WN, vitals as above Respiratory: diminished 2/2 habitus Cardiovascular: rrr, bilateral swelling of lower extremities---R> L, Gastrointestinal (Abdomen): normal bowel sounds, soft, nontender, no hepatosplenomegaly Skin: non pitting edema of right lower extremity with verrucous changes and erythema, c/w lymphedema, few excoriations, left leg with edema and slight skin changes Results & Data Results & Data Vital Signs (Past 12 Hours) Vital Signs Temp Pulse Pulse Resp BP Pulse Ox O2 Del Method 12/04/23 10:45 36.7 C 77 20 127/67 98 Room Air 12/04/23 08:20 74 12/04/23 08:00 Room Air 12/04/23 07:42 36.9 C 73 18 123/69 97 Room Air 12/04/23 03:21 37.4 C 75 18 116/61 91 Room Air Laboratory Results Short CBC 12/04/23 Range/Units 03:30 WBC 7.08 (4.8-10.8) K/ul Hgb 9.3 L (12.0-16.0) g/dl Hct 29.3 L (37.0-47.0) % Plt Count 47 L (130-400) K/uL BMP 12/04/23 03:30 Sodium 135 L Potassium 4.2 Chloride 106 Carbon Dioxide 24 BUN 19 Creatinine 1.12 Glucose 174 H Calcium 8.1 L Liver Function 12/04/23 Range/Units 03:30 Total Bilirubin 1.4 H (0.2-1.0) mg/dl Direct Bilirubin 0.6 H (0-0.2) mg/dl AST 23 (13-39) U/L ALT 11 (7-52) U/L Alkaline Phosphatase 83 (34-104) U/L Albumin 2.5 L (3.4-5.0) gm/dl Urine 12/03/23 Range/Units 19:50 Urine Color Dark Yellow Urine Appearance Clear (Clear) Urine pH 5.5 (4.5-7.5) Ur Specific [place] 1.032 H (1.000-1.030) Urine Protein Negative (Negative) Urine Glucose (UA) Negative (Negative) Medications Administered Home Medications Medication Instructions Recorded Confirmed Last Taken pravastatin 40 mg tablet 40 mg PO HS 05/26/18 12/03/23 11/11/23 insulin glargine 100 unit/mL (3 40 unit (0.4 mL) subcut BID #15 mL 04/25/20 12/03/23 11/12/23 08:00 mL) subcutaneous pen (Dmitryaglelia Barrios U-100 Insulin) triamcinolone acetonide 0.1 % 1 applic topical DAILY PRN Rash 05/01/22 12/03/23 08/05/23 18:00 topical cream metformin 500 mg tablet,extended 1,000 mg PO DAILY 05/14/22 12/03/23 11/12/23 release 24 hr clobetasol 0.05 % topical ointment 1 applic topical BID PRN Rash 06/25/23 12/03/23 08/05/23 09:00 tacrolimus 0.1 % topical ointment 1 applic topical BID PRN NEEDED 06/25/23 12/03/23 08/05/23 20:00 buspirone 7.5 mg tablet 7.5 mg PO BID #60 tabs 06/30/23 12/03/23 11/12/23 08:00 furosemide 40 mg tablet 20 mg PO BID 11/12/23 12/03/23 11/12/23 08:00 ketoconazole 2 % topical cream 1 applic topical DIRECTED PRN 11/12/23 12/03/23 Unknown RASH UNDER BREASTS/GROIN naproxen 500 mg tablet 500 mg PO BID PRN Pain 11/12/23 12/03/23 Unknown quetiapine 25 mg tablet 25 mg PO HS 11/12/23 12/03/23 11/11/23 ondansetron 4 mg disintegrating 4 mg PO Q8H PRN nausea and 11/13/23 12/03/23 Unknown tablet vomiting #30 tabs Active Medications Generic Name Dose Route Start Last Admin Trade Name Leonelq PRN Reason Stop Dose Admin Buspirone HCl 7.5 mg 12/03/23 21:00 12/04/23 09:18 Buspirone 7.5 Mg Tab PO 01/02/24 20:59 7.5 mg BID RODRIGO Administration Sodium Chloride 1,000 mls @ 75 mls/hr 12/03/23 16:45 12/04/23 07:36 Nss IV 12/04/23 19:24 75 mls/hr .[id number] RODRIGO Administration Cefepime HCl 2,000 mg/ Syringe 20 mls @ 5 mls/min 12/04/23 01:00 12/04/23 09:18 IV 12/11/23 00:59 5 mls/min Q8H RODRIGO Administration Protocol Insulin Aspart 0 units 12/04/23 11:30 12/04/23 12:02 Insulin Aspart Per Unit Charge SC 01/03/24 11:29 9 units ACHS RODRIGO Administration Insulin Glargine 20 units 12/03/23 21:00 12/04/23 09:18 Lantus Per Unit Charge SQ 01/02/24 20:59 20 units BID RODRIGO Administration Pravastatin Sodium 40 mg 12/03/23 21:00 12/03/23 20:15 Pravastatin Sod 40 Mg Tab PO 01/02/24 20:59 40 mg HS RODRIGO Administration Quetiapine Fumarate 25 mg 12/03/23 21:00 12/03/23 20:15 Quetiapine Fumarate 25 Mg Tablet PO 01/02/24 20:59 25 mg HS RODRIGO Administration (1) Fever Fever type: unspecified Qualified Code(s): R50.9 - Fever, unspecified (5) Cirrhosis Ascites presence: unspecified Hepatic cirrhosis type: unspecified hepatic cirrhosis Qualified Code(s): K74.60 - Unspecified cirrhosis of liver
[2023-12-04 14:56] LABS: Adenovirus F 40/41 PCR Not Detected (NotDetected); Astrovirus PCR Not Detected (NotDetected); Campylobacter PCR Not Detected (NotDetected); Cryptosporidium PCR Not Detected (NotDetected); Cyclospora cayetanensis PCR Not Detected (NotDetected); Entamoeba histolytica PCR Not Detected (NotDetected); Enteroaggregative E.coli(EAEC) Not Detected (NotDetected); Enteropathogenic E.coli (EPEC) Not Detected (NotDetected); Enterotoxigenic E.coli (ETEC) Not Detected (NotDetected); Giardia lamblia PCR Not Detected (NotDetected); Norovirus GI/GII PCR Not Detected (NotDetected); Plesiomonas shigelloides PCR Not Detected (NotDetected); Rotavirus A PCR Not Detected (NotDetected); Salmonella PCR Not Detected (NotDetected); Sapovirus PCR Not Detected (NotDetected); Shiga-like Toxin E.coli (STEC) Not Detected (NotDetected); Shigella/Enteroinvasive E.coli Not Detected (NotDetected); Vibrio cholerae PCR Not Detected (NotDetected); Vibrio species PCR Not Detected (NotDetected); Yersinia enterocolitica PCR Not Detected (NotDetected)
[2023-12-04] MEDS: FUROSEMIDE 20 MG TAB PO SCH (17:32)
[2023-12-04] MEDS: AMMONIUM LACTATE 12% LOTION 225 GM BTL EXT SCH (20:40)
[2023-12-05 06:06] LABS: Hemoglobin 8.9 g/dl (12.0-16.0); Mean Corpuscular Hemoglobin 30.7 pg (25.0-34.0); Mean Corpuscular Volume 93.1 fL (80.0-100.0); Platelet Count 44 K/uL (130-400); RDW Coefficient of Variation 14.6 % (11.5-14.5); RDW Standard Deviation 51.1 fL (36.4-46.3); White Blood Count 5.44 K/ul (4.8-10.8)
[2023-12-05 06:18] LABS: Albumin Globulin Ratio 0.7 (0.9-2); Albumin Level 2.5 gm/dl (3.4-5.0); BUN Creatinine Ratio 16.2 (10-20); Bilirubin,Total 1.2 mg/dl (0.2-1.0); Calcium 7.9 mg/dl (8.6-10.3); Est GFR (African American) 56.6 ml/min; Est GFR (Non-African American) 48.9 ml/min; Globulin 3.8 gm/dl (2.5-4.0); Magnesium 1.7 mg/dl (1.7-2.4); Phosphorus 3.1 mg/dl (2.5-4.9); Total Protein 6.3 gm/dl (6.0-8.3)
[2023-12-05] MEDS: PANTOprazole 40 MG TAB PO SCH (07:49)
[2023-12-05] MEDS: PSYLLIUM or GUAR GUM FIBER 4GM PACKET PO SCH (07:53)
--- NOTE | 2023-12-05 09:18 | Hospitalist Progress Note ---
Date of Service December 05, 2023 Assessment & Plan (1) Fever: (2) Cellulitis of right leg: (3) Nausea, vomiting and diarrhea: (4) Hypomagnesemia: (5) Cirrhosis: (6) Lymphedema: Plan Ms. Lewis is a 63 y/o female with insulin-requiring DM2, cirrhosis, chronic lymphedema, HTN, chronic thrombocytopenia, and other history as outlined who presented to ED on 12/02 with multiple symptoms including the acute onset of N/V/D last night, chest pain, and fevers that are consistent with onset of cellutlitis. She recently completed a 28 day course of cephalexin per ID for the RLE cellulitis on 11/11. She has not followed up with her PCP since discharge from [facility] on 11/12 - reports she was scheduled for this upcoming Tuesday. Initial lactate in the ED was elevated at 2.4, repeat after 1L IVF was 1.6. Initial troponin negative. #Fever #Cellulitis of RLE #Chronic Lymphedema Followed ID, completed prolonged course of PO ceflex 11/11 BCx NGTD UA negative tick serologies negative MRSA negative 12/03 Continue cefepime given subjective improvement for 48 hours Infectious disease consulted for further recommendations given recent prolonged course and recurrence -Previous recommendation " After completion of 1 week of full dose Keflex; recommend suppressive dosing of twice a day for the next 4 to 6 weeks." wound care Continue Amlactin for lymphedema Trend labs in am #Nausea, vomiting and diarrhea: CT with esophagitis and cirrhosis c.w history Similar symptoms during last admission. Suspect may be viral etiology but in view of multiple antibiotics over the last several months, need to r/o C. diff. - Check stool studies including C. diff - CT abd/pel negative for signs of infection - Consult GI due to recurrent symptoms: supportive care continue PPI daily given esophagitis #hypomagnesemia: stable, replace prn #Compensated Cirrhosis: #Chronic thrombocytopenia related to cirrhosis chronic, stable continue home lasix 20mg bid Full code DVT prophylaxis: TEDs for now in view of thrombocytopenia MSO Admission and Anticipated Discharge Date Admission Date: December 03, 2023 Subjective NAEO Reports subjective improvement Denies any acute concerns or N/V/D Physical Exam Constitutional: WD/WN, vitals as above Respiratory: normal respiratory effort, lungs clear to auscultation Cardiovascular: RRR Gastrointestinal (Abdomen): normal bowel sounds, soft, nontender, no hepatosplenomegaly Skin: stable lymphedematous changes, no purulence or drainage noted Results & Data Results & Data Vital Signs (Past 12 Hours) Vital Signs Temp Pulse Resp BP Pulse Ox O2 Del Method 12/05/23 08:00 Room Air 12/05/23 07:38 37.0 C 73 14 108/65 96 Room Air 12/04/23 21:22 37.1 C 76 14 120/71 94 Room Air Laboratory Results Short CBC 12/05/23 Range/Units 05:26 WBC 5.44 (4.8-10.8) K/ul Hgb 8.9 L (12.0-16.0) g/dl Hct 27.0 L (37.0-47.0) % Plt Count 44 L (130-400) K/uL BMP 12/05/23 05:26 Sodium 136 Potassium 4.0 Chloride 106 Carbon Dioxide 25 BUN 19 Creatinine 1.17 Glucose 117 H Calcium 7.9 L Liver Function 12/05/23 Range/Units 05:26 Total Bilirubin 1.2 H (0.2-1.0) mg/dl AST 25 (13-39) U/L ALT 11 (7-52) U/L Alkaline Phosphatase 73 (34-104) U/L Albumin 2.5 L (3.4-5.0) gm/dl Medications Administered Home Medications Medication Instructions Recorded Confirmed Last Taken pravastatin 40 mg tablet 40 mg PO HS 05/26/18 12/03/23 11/11/23 insulin glargine 100 unit/mL (3 40 unit (0.4 mL) subcut BID #15 mL 04/25/20 12/03/23 11/12/23 08:00 mL) subcutaneous pen (Basaglar KwikPen U-100 Insulin) triamcinolone acetonide 0.1 % 1 applic topical DAILY PRN Rash 05/01/22 12/03/23 08/05/23 18:00 topical cream metformin 500 mg tablet,extended 1,000 mg PO DAILY 05/14/22 12/03/23 11/12/23 release 24 hr clobetasol 0.05 % topical ointment 1 applic topical BID PRN Rash 06/25/23 12/03/23 08/05/23 09:00 tacrolimus 0.1 % topical ointment 1 applic topical BID PRN NEEDED 06/25/23 12/03/23 08/05/23 20:00 buspirone 7.5 mg tablet 7.5 mg PO BID #60 tabs 06/30/23 12/03/23 11/12/23 08:00 furosemide 40 mg tablet 20 mg PO BID 11/12/23 12/03/23 11/12/23 08:00 ketoconazole 2 % topical cream 1 applic topical DIRECTED PRN 11/12/23 12/03/23 Unknown RASH UNDER BREASTS/GROIN naproxen 500 mg tablet 500 mg PO BID PRN Pain 11/12/23 12/03/23 Unknown quetiapine 25 mg tablet 25 mg PO HS 11/12/23 12/03/23 11/11/23 ondansetron 4 mg disintegrating 4 mg PO Q8H PRN nausea and 11/13/23 12/03/23 Unknown tablet vomiting #30 tabs Active Medications Generic Name Dose Route Start Last Admin Trade Name Leonelq PRN Reason Stop Dose Admin Buspirone HCl 7.5 mg 12/03/23 21:00 12/05/23 07:50 Buspirone 7.5 Mg Tab PO 01/02/24 20:59 7.5 mg BID RODRIGO Administration Furosemide 20 mg 12/04/23 17:00 12/05/23 07:49 Furosemide 20 Mg Tab PO 01/03/24 16:59 20 mg [id number] RODRIGO Administration Cefepime HCl 2,000 mg/ Syringe 20 mls @ 5 mls/min 12/04/23 01:00 12/05/23 07:48 IV 12/11/23 00:59 5 mls/min Q8H RODRIGO Administration Protocol Insulin Aspart 0 units 12/04/23 11:30 12/05/23 08:32 Insulin Aspart Per Unit Charge SC 01/03/24 11:29 8 units ACHS RODRIGO Administration Insulin Glargine 20 units 12/03/23 21:00 12/05/23 08:33 Lantus Per Unit Charge SQ 01/02/24 20:59 20 units BID RODRIGO Administration Lactic Acid 1 gm 12/04/23 21:00 12/05/23 07:48 Ammonium Lactate 12% Lotion 225 Gm Btl EXT 01/03/24 20:59 1 gm BID RODRIGO Administration Pantoprazole Sodium 40 mg 12/05/23 09:00 12/05/23 07:49 Pantoprazole 40 Mg Tab PO 01/04/24 08:59 40 mg QAM RODRIGO Administration Pravastatin Sodium 40 mg 12/03/23 21:00 12/04/23 20:41 Pravastatin Sod 40 Mg Tab PO 01/02/24 20:59 40 mg HS RODRIGO Administration Psyllium Hydrophilic Mucilloid 4 gm 12/05/23 09:00 12/05/23 07:53 Psyllium Or Guar Gum Fiber 4gm Packet PO 01/04/24 08:59 4 gm QAM RODRIGO Administration Quetiapine Fumarate 25 mg 12/03/23 21:00 12/04/23 20:41 Quetiapine Fumarate 25 Mg Tablet PO 01/02/24 20:59 25 mg HS RODRIGO Administration (1) Fever Fever type: unspecified Qualified Code(s): R50.9 - Fever, unspecified (5) Cirrhosis Ascites presence: unspecified Hepatic cirrhosis type: unspecified hepatic cirrhosis Qualified Code(s): K74.60 - Unspecified cirrhosis of liver
[2023-12-05 15:19] VITALS: RESP 18
[2023-12-06 07:29] VITALS: PULSE 77; TEMP 98.6; O2SAT 98
[2023-12-06] MEDS: cephALEXin 500 MG CAP PO SCH (09:11)
--- NOTE | 2023-12-06 09:17 | Discharge Summary ---
Discharge Summary Date of Service December 06, 2023 Principal Dx & Hospital Course #1 = Principal Diagnosis (1) Fever: (2) Cellulitis of right leg: (3) Nausea, vomiting and diarrhea: (4) Hypomagnesemia: (5) Cirrhosis: (6) Lymphedema: Plan Ms. Lewis is a 63 y/o female with insulin-requiring DM2, cirrhosis, chronic lymphedema, HTN, chronic thrombocytopenia, and other history as outlined who presented to ED on 12/02 with multiple symptoms including the acute onset of N/V/D last night, chest pain, and fevers that are consistent with onset of cellutlitis. She recently completed a 28 day course of cephalexin per ID for the RLE cellulitis on 11/11. She has not followed up with her PCP since discharge from [facility] on 11/12 - reports she was scheduled for this upcoming Tuesday. Initial lactate in the ED was elevated at 2.4, repeat after 1L IVF was 1.6. Initial troponin negative. Patient improved notably with 48 hours of IV antibiotic. Tiger[employer] conversation with Dr. Harrison (ID) recommend week course of PO abx and hold on prophylaxsis at this time. Ideally patient will establish with lymphedema care as that will be the best means of prevention. On day of discharge, patient was independent in care, eating well, and without concerns. Patient agreeable to plan and paperscript for lymphedema care given, as well as facilities in local area that will provide the care. Plan to follow up with ID, patient verbalized understanding. #Fever *resolved #Cellulitis of RLE #Chronic Lymphedema Followed ID, completed prolonged course of PO ceflex 11/11 BCx NGTD UA negative tick serologies negative MRSA negative 12/03 Continue cefepime given subjective improvement for 48 hours Infectious disease consulted for further recommendations given recent prolonged course and recurrence -Previous recommendation " After completion of 1 week of full dose Keflex; recommend suppressive dosing of twice a day for the next 4 to 6 weeks." -discussion over TT on 12/[address] Cameron Harrison, can continue keflex for 1 week; needs lymphedema management Script written for lymphedema clinic Encouraged continued use of amlactin Lyphedema self care instructions discussed on discharge #Nausea, vomiting and diarrhea: CT with esophagitis and cirrhosis c.w history Similar symptoms during last admission. Suspect may be viral etiology but in view of multiple antibiotics over the last several months, need to r/o C. diff. - Check stool studies including C. diff - CT abd/pel negative for signs of infection - Consult GI due to recurrent symptoms: supportive care continue PPI daily given esophagitis Recommended discontinuation of Naproxen and Ibuprofen #hypomagnesemia: stable, replace prn #Compensated Cirrhosis: #Chronic thrombocytopenia related to cirrhosis chronic, stable continue home lasix 20mg bid Notes For Next Care Provider Medication Changes From Visit Keflex QID for 6 more days Pantoprazole 40mg daily 2/2 esophagitis on imaging Discussed d/c NSAIDS 2/2 imaging findings Admission HPI Per Admitting Provider 63 y/o female with insulin-requiring DM2, cirrhosis, chronic lymphedema, HTN, chronic thrombocytopenia, and other history as outlined who presented to the ED today with multiple symptoms including the acute onset of N/V/D last night, chest pains, and fevers. She reports being in her usual state of health when she went to bed last night. Around 1 am today, she woke up feeling poorly with a fever of 103.1. Then developed vomiting with at least ten episodes of yellow to green emesis - may have a burning sensation in chest after vomiting. Also describes at least six episodes of diarrhea today as well. No melena or hematochezia. Describes intermittent chest pains in substernal to left chest but may radiate to left arm - describes as sharp pain. Temp when EMS came was around 100F. Having a cough but no sore throat. She has not taken her oral meds today but has taken her insulin. She reports that she lives alone, ambulates with a cane and a walker. Recently admitted to [facility] with similar symptoms 11/11- 11/13/23 and was diagnosed with viral gastroenteritis, unable to give a stool for C. diff during that admission. Chest pain was attributed to the N/V as troponin x 2 were normal and EKG without signs of ischemia. No antibiotics were given during that admission other than initial dose of ceftriaxone in the ED as patient had just finished a 28 day course of Keflex on 11/11 as per infectious disease. Admission Exam Per Admitting Provider GENERAL: Alert and oriented x3. NAD, on RA. appears tired, warm to touch. HEENT: No pallor, no icterus. Pupils equal, round and reactive to light. Oral mucosa dry. NECK: No JVD, no neck masses. HEART: S1 and S2 heard. Regular rate and rhythm. tachycardia in 90s. + murmur, no gallop. RESPIRATORY SYSTEM: Normal AP diameter. No accessory muscle use. No wheezing, no crackles. ABDOMEN: Soft, bowel sounds present, diffuse tender, no distention. CENTRAL NERVOUS SYSTEM: No facial droop. Speech is clear. Obeys simple commands. Moves extremities. EXTREMITIES: RLE x severe lymphedema - erythema,warmth and tenderness noted. LLE mild lymphedema noted, no erythema noted. Discharge Exam Constitutional WD/WN, vitals as above Respiratory normal respiratory effort, lungs clear to auscultation Gastrointestinal (Abdomen) normal bowel sounds, soft, nontender, no hepatosplenomegaly Updated Medication List Medication Instructions Recorded Confirmed Type pravastatin 40 mg tablet 40 mg PO HS 05/26/18 12/03/23 History insulin glargine 100 unit/mL (3 40 unit (0.4 mL) subcut BID #15 mL 04/25/20 0 12/03/23 Rx mL) subcutaneous pen (Basaglar KwikPen U-100 Insulin) triamcinolone acetonide 0.1 % 1 applic topical DAILY PRN Rash 05/01/22 12/03/23 History topical cream metformin 500 mg tablet,extended 1,000 mg PO DAILY 05/14/22 12/03/23 History release 24 hr clobetasol 0.05 % topical ointment 1 applic topical BID PRN Rash 06/25/23 12/03/23 History tacrolimus 0.1 % topical ointment 1 applic topical BID PRN NEEDED 06/25/23 12/03/23 History buspirone 7.5 mg tablet 7.5 mg PO BID #60 tabs 06/30/23 12/03/23 Rx furosemide 40 mg tablet 20 mg PO BID 11/12/23 12/03/23 History ketoconazole 2 % topical cream 1 applic topical DIRECTED PRN 11/12/23 12/03/23 History RASH UNDER BREASTS/GROIN quetiapine 25 mg tablet 25 mg PO HS 11/12/23 12/03/23 History ondansetron 4 mg disintegrating 4 mg PO Q8H PRN nausea and 11/13/23 12/03/23 Rx tablet vomiting #30 tabs ammonium lactate 5 % lotion 1 applic EXT BID 30 days #226 grams 12/06/23 Rx (Lac-Hydrin Five) cephalexin 500 mg capsule 500 mg PO QID 6 days #24 caps 12/06/23 Rx pantoprazole 40 mg tablet,delayed 40 mg PO QAM #30 tabs 12/06/23 Rx release Hospital Stay Data Consultations 12/03/23 16:07 ED Decision to Admit Stat 12/03/23 18:15 Consult Gastroenterology Routine Diagnostic Imagining Performed 12/03/23 12:01 US venous doppler LE RT Stat 12/03/23 16:54 CT abd pelvis IV con only Urgent Pending Results Patient Have Any Pending Studies at Discharge: No Discharge Instructions Given to Patient (Per Discharging Provider) You were admitted for concerns of nausea,vomiting and fever and found to have recurrent cellulitis. Your symptoms resolved with antibiotics. You will continue oral antibiotics for 6 more days -Keflex 500mg four times a day A prescription for lymphedema eval was written. Please find a location for evaluation to help manage the lymphedema as this will help prevent reinfection. Please use amlactin two times a day to help keep skin moist Please start pantoprazole 40mg daily before breakfast. Your imaging showed signs of esophagitis. Please discontinue use of ibuprofen/naproxen and consider using 650mg Tylenol every 4-6 hours as needed for pain. LYMPHEDEMA MANAGEMENT Elevation Its harder for fluid to flow against gravity, so your lymphatic system may have a tough time draining if fluid is building up in your legs. Elevating the affected part of your body can help prevent fluid buildup to reduce swelling in the affected area. If you have acute damage to your lymphatic system, elevating the affected limb can move lymph fluid to a functional part of the lymphatic system, allowing it to drain properly. If youre dealing with severe swelling thats causing discomfort, pain, or decreased range of motion, elevation can be a self management option. Compression Wearingcompression garments for lymphedema https://Health: El[employer].com/resource-hub/lymphedema/jdwqhmlqctu-xlxcuned-gnw-lymp hedema/ is one of the most popular treatment options. Compression garments apply gentle pressure to the affected limb(s), which helps prevent fluid buildup and encourage the flow of lymph fluid, even when gravity is working against it. There are compression stockings and compression sleeves with different levels of compression available. Before you wear these compression garments, you should talk to your doctor or lymphedema specialist to make sure youre using them properly. There are alsopneumatic compression devices https://Shopping Buddy/rye-hwkoqecmtb-liiabayrh/lymphedema-products/ such as the Flexitouch Plus System from [employer]. These devices help apply gentle pneumatic pressure to facilitate the flow of lymph fluid. Compression garments and pneumatic compression devices arent typically used independently. Instead, they are both used as part of a comprehensive treatment program, which may include exercise, manual lymphatic drainage massages, adequate skin and nail care, and a healthy diet. The Flexitouch Plus System is available forlower body https://Shopping Buddy/pun-icooehsshg-fszqvpwph/poz-uma-gavam-body/ ,upper body https://Sho[employer] Bud[employer]/lbe-kgehoudcpq-lpvhigcmv/pgs-blz-msaus-body/ , andhead and neck https://[employer] Bud[employer]/hyc-cnywsnlzlf-cqnhqmjcc/vuh-sljh-osk-neck/ treatment. Skin treatment Skincare is another vital part of managing lymphedema. Lymphedema increases your risk of infection if you have an injury, so its important to make sure your skin is moisturized properly. You should apply lotion at least once per day and make sure you keep your skin clean and dry otherwise. Cutting your fingernails and toenails can also help prevent scratches, which lowers your risk of infections due to cuts where bacteria can enter. Manual lymphatic drainage When it comes to encouraging lymphatic drainage, one of the best things you can do is learnhow to do a lymphatic massage https://[employer] Buddy/resource-hub/general/nex-vv-vw-e-zxrapmyzp-knexdgx/ . This is a simple technique that involves using your hands to gently guide the flow of lymph fluid. While lymphatic drainage massages are easy to do at home, theres a very specific method involved. You can talk to your doctor or lymphedema specialist about how to perform a manual lymphatic drainage massage as part of your lymphedema self care treatment plan. Exercise Exercise is one of the easiest and most beneficial self care lymphedema therapy steps you can take. Exercise helps encourage blood flow as well as lymphatic drainage, which helps reduce swelling and the symptoms that come along with it. As an added benefit, exercise allows you to keep your weight in check, which is a risk for lymphedema and lymphedema complications. At the very least, you should try to get about 30 minutes of moderate exercise each day. Daily exercise can be as simple as walking around your neighborhood or performing tasks around your house. If you cant manage to exercise daily, aim to get 30 minutes of exercise at least four or five days a week. Total Time Total Time Spent Total Time Spent (In Minutes): 45
[2023-12-06 09:24] LABS: BUN Creatinine Ratio 17.2 (10-20); Creatinine Clr Calc Pharmacy 67.6 ml/min; Est GFR (African American) 57.2 ml/min; Est GFR (Non-African American) 49.4 ml/min; Potassium 3.5 mmol/L (3.5-5.1)
[2023-12-06 10:03] VITALS: BP 124/73
[2023-12-08 13:32] LABS: Babesia microti DNA Not Detected (Not Detected)
== END 2023-12-06 14:25 | disposition home or self-care (01) | DRG 603 ==
LOC: ED 11:47 → SUATTDRO 16:28 → 2E 16:28 → 3E 12-04 15:51